=== PATIENT | female | born 1950 | race Caucasian/White ===

== ENCOUNTER 2018-01-09 12:30 | Emergency (ER) | payer OTHER ==
--- NOTE | 2018-01-09 13:06 | EDPHYS ---
Physician Documentation [facility] Name: Lisy Betts Age: 67 yrs Sex: Female : 1950 Arrival Date: 01/09/2018 Time: 12:31 Bed 20 Private MD: ED Physician Javed Osborne HPI: 01/09 13:00 This 67 yrs old Female presents to ER via Ambulatory with complaints of Wound nathaniel Check. 13:00 Patient presents to ED for recheck of: cellulitis. The affected area is on the left nathaniel wilde. Previous treatment: none. Progress: The patient reports decreased drainage, redness, swelling. The patient has not experienced similar symptoms in the past. Historical: - Allergies: 12:40 PENICILLINS; aj - Home Meds: 12:40 None [Active]; aj - PMHx: 12:40 CLL; UTI; aj - PSHx: 12:40 Hysterectomy; aj - Immunization history:: Last tetanus immunization: unknown. - Social history:: Smoking status: Patient/guardian denies using tobacco. ROS: 13:01 Constitutional: Negative for fever, chills, and weight loss, Eyes: Negative for injury, nathaniel pain, redness, and discharge, Neck: Negative for injury, pain, and swelling, Cardiovascular: Negative for chest pain, palpitations, and edema, Respiratory: Negative for shortness of breath, cough, wheezing, and pleuritic chest pain, Abdomen/GI: Negative for abdominal pain, nausea, vomiting, diarrhea, and constipation, Back: Negative for injury and pain, : Negative for injury, bleeding, discharge, and swelling, Skin: Negative for injury, rash, and discoloration, Neuro: Negative for headache, weakness, numbness, tingling, and seizure, Psych: Negative for depression, anxiety, suicide ideation, homicidal ideation, and hallucinations, Allergy/Immunology: Negative for hives, rash, and allergies, Endocrine: Negative for neck swelling, polydipsia, polyuria, polyphagia, and marked weight changes, Hematologic/Lymphatic: Negative for swollen nodes, abnormal bleeding, and unusual bruising. 13:01 MS/extremity: Positive for pain, swelling, tenderness, warmth, of the left wilde. Exam: 13:01 Constitutional: This is a well developed, well nourished patient who is awake, alert, nathaniel and in no acute distress. Head/Face: Normocephalic, atraumatic. Eyes: Pupils equal round and reactive to light, extra-ocular motions intact. Lids and lashes normal. Conjunctiva and sclera are non-icteric and not injected. Cornea within normal limits. Periorbital areas with no swelling, redness, or edema. ENT: Nares patent. No nasal discharge, no septal abnormalities noted. Tympanic membranes are normal and external auditory canals are clear. Oropharynx with no redness, swelling, or masses, exudates, or evidence of obstruction, uvula midline. Mucous membranes moist. Neck: Trachea midline, no thyromegaly or masses palpated, and no cervical lymphadenopathy. Supple, full range of motion without nuchal rigidity, or vertebral point tenderness. No Meningismus. Chest/axilla: Normal chest wall appearance and motion. Nontender with no deformity. No lesions are appreciated. Cardiovascular: Regular rate and rhythm with a normal S1 and S2. No gallops, murmurs, or rubs. Normal PMI, no JVD. No pulse deficits. Respiratory: Lungs have equal breath sounds bilaterally, clear to auscultation and percussion. No rales, rhonchi or wheezes noted. No increased work of breathing, no retractions or nasal flaring. Abdomen/GI: Soft, non-tender, with normal bowel sounds. No distension or tympany. No guarding or rebound. No evidence of tenderness throughout. Back: No spinal tenderness. No costovertebral tenderness. Full range of motion. Female : Normal external genitalia. Skin: Warm, dry with normal turgor. Normal color with no rashes, no lesions, and no evidence of cellulitis. Neuro: Awake and alert, GCS 15, oriented to person, place, time, and situation. Cranial nerves II-XII grossly intact. Motor strength 5/5 in all extremities. Sensory grossly intact. Cerebellar exam normal. Normal gait. Psych: Awake, alert, with orientation to person, place and time. Behavior, mood, and affect are within normal limits. 13:01 Musculoskeletal/extremity: Circulation is intact in all extremities. Sensation intact. Compartment Syndrome exam of affected extremity: is normal. DVT Exam: negative Homans' sign noted on exam, no appreciated bluish discoloration, pain, swelling, tenderness, erythema, increased warmth, that is mild, that is moderate, of the left leg, of the left wilde. Vital Signs: 12:40 BP 170 / 61; Pulse 68; Resp 17; Temp 97.8; Pulse Ox 100% on R/A; Weight 102.06 kg; aj Height 5 ft. 5 in. (165.10 cm); Pain 0/10; 14:00 BP 162 / 64; Pulse 64; Resp 18; Temp 98.2; Pulse Ox 99% on R/A; ph 12:40 Body Mass Index 37.44 (102.06 kg, 165.10 cm) aj MDM: 12:44 Patient medically screened. [facility] 13:01 Data reviewed: vital signs, nurses notes. [facility] 01/09 12:58 Order name: Blood Glucose Level; Complete Time: 14:14 [facility] Administered Medications: 14:00 Drug: Bactrim (160 mg-800 mg (DS) 1 tablet Route: PO; ph 14:14 Follow up: Response: No adverse reaction ph 14:00 Drug: Doxycycline 200 mg Route: PO; ph 14:16 Follow up: Response: No adverse reaction ph 14:00 Drug: Tetanus-Diphtheria Toxoid Adult 0.5 ml {Group Director: [employer]. Exp: ph 05/10/2020. Lot #: [id number]. } Route: IM; Site: right deltoid; 14:17 Follow up: Response: No adverse reaction ph 14:14 Drug: Silver SulfADIAZINE Cream 1 % 1 application Route: Topical; Site: affected area; ph 14:17 Follow up: Response: No adverse reaction ph Point of Care Testing: Blood Glucose: 13:07 Blood Glucose: 133 mg/dL; ph Ranges: Critical Glucose Levels:Adult <50 mg/dl or >400 mg/dl <40 mg/dl or >180 mg/dl Disposition: 01/09/18 13:05 Discharged to Home. Impression: Cellulitis and acute lymphangitis of other parts of limb, Non-pressure chronic ulcer of other part of left lower leg. - Condition is Stable. - Discharge Instructions: Skin Ulcer, Stasis Ulcer, Cellulitis, [id number]-ot-Czit, Pressure Ulcer. - Prescriptions for Silvadene 1 % Topical Cream - Apply to affected area 1 application by TOPICAL route every 12 hours; 20 gram. Doxycycline Hyclate 100 mg Oral Tablet - take 1 tablet by ORAL route every 12 hours; 20 tablet. Bactrim DS 800- 160 mg Oral Tablet - take 1 tablet by ORAL route every 12 hours for 10 days; 20 tablet. - Medication Reconciliation Form, Thank You Letter, Antibiotic Education, Prescription Opioid Use form. - Follow up: Private Physician; When: 2 - 3 days; Reason: Recheck today's complaints, Continuance of care, Re-evaluation by your physician. Follow up: Vik Ohara MD; When: 2 - 3 days; Reason: Recheck today's complaints, Continuance of care, Re-evaluation by your physician. - Problem is new. - Symptoms have improved. Signatures: Paris Jeffries, RN RN Javed Rossi MD MD cha Hall, Patricia, RN RN ph
--- NOTE | 2018-01-09 13:06 | ER ---
Nurse's Notes [facility] Name: Lisy Betts Age: 67 yrs Sex: Female : 1950 Arrival Date: 01/09/2018 Time: 12:31 Bed 20 Private MD: Diagnosis: Cellulitis and acute lymphangitis of other parts of limb;Non-pressure chronic ulcer of other part of left lower leg Presentation: 01/09 12:39 Presenting complaint: Patient states: Wound to left wilde for 7-10 days that will not aj heal. Redness and inflammation noted to wound. Transition of care: patient was not received from another setting of care. Onset of symptoms was December 31, 2017. Care prior to arrival: None. 12:39 Method Of Arrival: Ambulatory aj 12:39 Acuity: ARNOLD 3 aj Triage Assessment: 12:40 General: Appears in no apparent distress. comfortable, Behavior is calm, cooperative, aj appropriate for age. Pain: Denies pain. Neuro: Level of Consciousness is awake, alert, obeys commands, Oriented to person, place, time, situation. Respiratory: Airway is patent Respiratory effort is even, unlabored, Respiratory pattern is regular, symmetrical. Derm: Skin is intact, is healthy with good turgor, Skin is pink, warm \T\ dry. normal, redness noted to left wilde. Historical: - Allergies: 12:40 PENICILLINS; aj - Home Meds: 12:40 None [Active]; aj - PMHx: 12:40 CLL; UTI; aj - PSHx: 12:40 Hysterectomy; aj - Immunization history:: Last tetanus immunization: unknown. - Social history:: Smoking status: Patient/guardian denies using tobacco. Screenin:17 Abuse screen: Denies threats or abuse. Denies injuries from another. Nutritional ph screening: No deficits noted. Tuberculosis screening: No symptoms or risk factors identified. Fall Risk None identified. Assessment: 13:00 General: Appears in no apparent distress. comfortable, obese, well groomed, Behavior is ph calm, cooperative, appropriate for age, Denies fever, feeling ill. Pain: Complains of pain in left wilde. Neuro: Level of Consciousness is awake, alert, obeys commands, Oriented to person, place, time, situation. Cardiovascular: Capillary refill < 3 seconds Patient's skin is warm and dry. Respiratory: Airway is patent Respiratory effort is even, unlabored. GI: Patient currently denies diarrhea, nausea, vomiting. Derm: Skin is healthy with good turgor, Skin is pink, warm \T\ dry. Wound noted left wilde Wound is round, dime-sized, no bleeding or drainage noted, surrounding area reddened and warm. Musculoskeletal: Circulation, motion, and sensation intact. Range of motion: intact in all extremities. 14:20 Reassessment: Patient appears in no apparent distress at this time. Patient and/or ph family updated on plan of care and expected duration. Pain level reassessed. Patient is alert, oriented x 3, equal unlabored respirations, skin warm/dry/pink. Pt discharged home. Vital Signs: 12:40 BP 170 / 61; Pulse 68; Resp 17; Temp 97.8; Pulse Ox 100% on R/A; Weight 102.06 kg; aj Height 5 ft. 5 in. (165.10 cm); Pain 0/10; 14:00 BP 162 / 64; Pulse 64; Resp 18; Temp 98.2; Pulse Ox 99% on R/A; ph 12:40 Body Mass Index 37.44 (102.06 kg, 165.10 cm) ED Course: 12:31 Patient arrived in ED. as 12:40 Triage completed. 12:40 Arm band placed on left wrist. Patient placed in an exam room. aj 12:42 Leticia Olivera, RN is Primary Nurse. ph 12:44 Javed Osborne MD is Attending Physician. [facility] 13:00 Patient has correct armband on for positive identification. Bed in low position. Call ph light in reach. Side rails up X 1. Pulse ox on. NIBP on. 13:04 Vik Ohara MD is Referral Physician. [facility] 14:00 Wound care: to cellulitis located on left wilde was cleaned with Betadine, irrigated ph with normal saline, dressed with band aid, silvadene , Patient tolerated well. 14:17 No provider procedures requiring assistance completed. Patient did not have IV access ph during this emergency room visit. Administered Medications: 14:00 Drug: Bactrim (160 mg-800 mg (DS) 1 tablet Route: PO; ph 14:14 Follow up: Response: No adverse reaction ph 14:00 Drug: Doxycycline 200 mg Route: PO; ph 14:16 Follow up: Response: No adverse reaction ph 14:00 Drug: Tetanus-Diphtheria Toxoid Adult 0.5 ml {Academic Dean: 27 [address]. Exp: ph 05/10/2020. Lot #: [id number]. } Route: IM; Site: right deltoid; 14:17 Follow up: Response: No adverse reaction ph 14:14 Drug: Silver SulfADIAZINE Cream 1 % 1 application Route: Topical; Site: affected area; ph 14:17 Follow up: Response: No adverse reaction ph Point of Care Testing: Blood Glucose: 13:07 Blood Glucose: 133 mg/dL; ph Ranges: Outcome: 13:05 Discharge ordered by MD. armstrong 14:18 Discharged to home ambulatory. ph 14:18 Condition: good 14:18 Discharge instructions given to patient, Instructed on discharge instructions, follow up and referral plans. medication usage, Demonstrated understanding of instructions, follow-up care, medications, Prescriptions given X 3. 14:22 Patient left the ED. ph Signatures: Paris Jeffries RN RN Javed Rossi MD MD cha Martinez, Amelia as Hall, Patricia, RN RN ph Corrections: (The following items were deleted from the chart) 14:15 14:14 Doxycycline 200 mg PO ph ph 14:15 14:14 Bactrim (160 mg-800 mg (DS) 1 tablet PO ph ph 14:16 14:12 Tetanus-Diphtheria Toxoid Adult 0.5 ml IM in right deltoid Academic Dean: [employer] Lot: [id number] Exp: 05/10/2020 ph 14:16 14:14 Silver SulfADIAZINE Cream 1 % 1 application Topical in affected area ph ph
[2018-01-09] MEDS ORDERED: SMZ./TMP. 800/160 MG TABLET ONE (13:37)
[2018-01-09] MEDS ORDERED: DOXYCYCLINE 100 MG CAP PO ONE (13:37)
[2018-01-09] MEDS ORDERED: SILVER SULFADIAZINE 1% 25 GM TOP ONE (13:37)
[2018-01-09] MEDS ORDERED: TETANUS & DIPHTHERIA TOX,ADULT 0.5 ML VIAL ONE (13:38)
[2018-01-09 14:36] VITALS: BP 170/61; TEMP 97.8; O2SAT 100
== END 2018-01-09 14:22 | disposition home or self-care (01) ==
LOC: ER 12:30
DX: L03.116 Cellulitis of left lower limb (principal); L97.829 Non-pressure chronic ulcer of other part of left lower leg with unspecified severity; Z23 Encounter for immunization; Z88.0 Allergy status to penicillin
CPT/HCPCS: 82962; 90714; 99284

== ENCOUNTER 2018-01-22 13:56 | Inpatient (IN) | payer OTHER ==
[2018-01-22 15:18] LABS: Absolute Lymphocytes (CBC) 26.9 K/uL (0.7-4.9); Absolute Monocytes 0.2 K/uL (0.1-1.3); Absolute Neutrophil 0.3 K/uL (1.8-8.0); Eosinophils % 0.4 % (0-4.4); Hematocrit 32.3 % (36.0-45.0); Lymphocytes % 97.8 % (15.3-44.8); MCH 33.7 pg (27.0-35.0); MCV 104.2 fL (80-100); MPV 10.6 fL (7.6-11.3); Monocytes % 0.6 % (3.3-12.3)
[2018-01-22 15:25] LABS: Protime INR 0.97
[2018-01-22 15:32] LABS: Potassium 3.9 mEq/L (3.6-5.0)
[2018-01-22 15:35] LABS: Albumin 3.8 g/dL (3.2-5.5); Bilirubin Total 0.5 mg/dL (0.3-1.2); Magnesium 1.9 mg/dL (1.8-2.5); Protein, Total 6.7 g/dL (6.0-8.3)
[2018-01-22 15:49] LABS: Anisocytosis SLIGHT; Blood Morphology Comment NOTED (NOT SEEN); Macrocytosis 1+; Platelet Estimate DECR; Smudge Cells PRESENT
[2018-01-22 15:50] LABS: Polychromasia SLIGHT; Teardrop Cell 1+
--- NOTE | 2018-01-22 15:52 | EKG ---
Test Date: 2018-01-22 Test Time: 14:18:05 Cam Maker: RAFI MEASUREMENT RESULTS: Intervals: Rate: 73 MI: 146 QRSD: 78 QT: 390 QTc: 429 [place]: P: -11 MI: 146 QRS: -4 T: 34 INTERPRETIVE STATEMENTS: Normal sinus rhythm Minimal voltage criteria for LVH, may be normal variant Inferior infarct, age undetermined Cannot rule out Anterior infarct, age undetermined Abnormal ECG Compared to ECG 11/05/2017 15:36:53 Left ventricular hypertrophy now present Myocardial infarct finding still present Electronically Signed On 01-22-18 15:51:13 CDT by Stevan Olivia
--- NOTE | 2018-01-22 16:27 | RAD REPORT ---
EXAM DESCRIPTION: CT - Chest For Pe Angio - 01/22/2018 4:09 pm CLINICAL HISTORY: Chest pain. COMPARISON: 08/16/2017 TECHNIQUE: CT angiogram of the pulmonary arteries was performed with MIP. All CT scans are performed using dose optimization technique as appropriate and may include automated exposure control or mA/KV adjustment according to patient size. FINDINGS: Posterior right lower lobe filling defect is seen in the pulmonary artery compatible with pulmonary embolism. Smaller similar filling defects are likely present in the posterior subsegmental branches on the left. No evidence of RV strain pattern. No acute aortic finding demonstrated. Bilateral axillary lymphadenopathy is noted appearing increased in size since comparative study. For example, the largest lymph node on the left currently measures 23 x 18 mm, previously measuring 19 x 9 mm. The largest lymph node on the right currently measures 31 x 14 mm, previously measured 27 x 9 m m. Interstitial prominence is present bilaterally throughout both lungs suggesting mild interstitial pul monary edema or interstitial pneumonitis. No lytic or blastic bone lesion. IMPRESSION: Pulmonary embolism is present, most notable in the segmental right lower lobe branch. Progression in adenopathy in both axillary regions as detailed since comparative 08/16/2017 study its most suggestive of progression of lymphoma. Findings were discussed with Dr. Sampson in the emergency room 4:23 p.m. 01/22/2018 by telephone.
--- NOTE | 2018-01-22 16:32 | RAD REPORT ---
EXAM DESCRIPTION: CTAbdomen Pelvis W Contrast - 01/22/2018 4:10 pm CLINICAL HISTORY: Abdominal pain. History of lymphoma. COMPARISON: 07/13/2017 TECHNIQUE: Biphasic CT imaging of the abdomen and pelvis was performed with 100 ml non-ionic IV cont rast. All CT scans are performed using dose optimization technique as appropriate and may include automated exposure control or mA/KV adjustment according to patient size. FINDINGS: Mild interstitial prominence is seen in both lung bases. The liver appears prominent in size with a diffuse fatty infiltration pattern, similar to the compara tive study. The spleen appears mildly prominent in size measuring 12 cm in anterior-posterior dimensi on without focal splenic lesion. The pancreas, adrenal glands and kidneys are within normal limits. No bowel obstruction, free air, free fluid or abscess. The appendix is normal. Adenopathy is again noted in the small bowel mesentery with mild surrounding mesenteric edema. The size and distribution of the lymph nodes appears similar to the comparative study. Pelvic sidewall adenopathy is also noted which appears slightly larger. For example, left pelvic sidewall adenopathy currently measures 4.7 x 2.4 cm, previously measured 4.2 x 2.1 cm. Right pelvic sidewall anterior adenopathy currently measur es 3.3 x 2.1 cm, previously 3.0 x 1.9 cm. Bilateral inguinal adenopathy appears similar. No suspicious bony findings. IMPRESSION: Diffuse fatty liver with mild hepatosplenomegaly. Mild progression in adenopathy, particularly in the pelvis, since 07/13/2017 as detailed.
--- NOTE | 2018-01-22 16:40 | ER ---
Nurse's Notes [facility] Name: Lisy Betts Age: 67 yrs Sex: Female : 1950 Arrival Date: 01/22/2018 Time: 13:57 Bed 23 Private MD: Wilfrid Beard Diagnosis: Pulmonary embolism without acute cor pulmonale;thrombocytopenia. CLL;leukocytosis Presentation: 01/22 14:02 Presenting complaint: Patient states: Yesterday I was having LLQ abd pain but when I la1 woke up this morning I had pain in my left chest area that went to my neck and left arm, pt reports pain is sharp and radiates up and down neck and arm. Transition of care: patient was not received from another setting of care. Onset of symptoms was January 22, 2018. Care prior to arrival: None. 14:02 Method Of Arrival: Wheelchair la1 14:02 Acuity: ARNOLD 3 la1 Historical: - Allergies: 14:04 PENICILLINS; la1 - PMHx: 14:04 CLL; UTI; la1 - Immunization history:: Adult Immunizations up to date. - Social history:: Smoking status: Patient/guardian denies using tobacco. Screenin:59 Abuse screen: Denies threats or abuse. Denies injuries from another. Nutritional lk1 screening: No deficits noted. Tuberculosis screening: No symptoms or risk factors identified. Fall Risk Total Rodríguez Fall Scale indicates High Risk Score (45 or more points). Fall prevention measures have been instituted. Side Rails Up X 2 Placed Close to Nursing Station Frequent Obs/Assessments Occuring Family Present and informed to notify staff if the need to leave the bedside As available patient and family educated on Fall Prevention Program and Strategies. Assessment: 14:40 General: Appears uncomfortable, Behavior is calm, cooperative, appropriate for age. lk1 Pain: Complains of pain in right upper quadrant and left upper quadrant Pain radiates to anterior aspect of left shoulder and posterior aspect of left shoulder Pain currently is 6 out of 10 on a pain scale. Pain began 1 day ago. Neuro: Level of Consciousness is awake, alert, obeys commands, Oriented to person, place, time, situation. Neuro: Speech is normal, Facial symmetry appears normal. Cardiovascular: Heart tones S1 S2 present Capillary refill is brisk Patient's skin is warm and dry. Respiratory: Airway is patent Respiratory effort is even, unlabored, Respiratory pattern is regular, symmetrical. GI: Abdomen is obese, Reports States pain began yesterday under left ribs and now is between the bottom of her ribs and her belly button across tboth sides of her abdomen. : No signs and/or symptoms were reported regarding the genitourinary system. EENT: No signs and/or symptoms were reported regarding the EENT system. Derm: No signs and/or symptoms reported regarding the dermatologic system. 15:30 Reassessment: Patient and/or family updated on plan of care and expected duration. Pain lk1 level reassessed. Patient is alert, oriented x 3, equal unlabored respirations, skin warm/dry/pink. Patient states feeling better. Vital Signs: 14:04 BP 155 / 84; Pulse 80; Resp 16; Temp 98.2(TE); Pulse Ox 97% on R/A; Weight 99.79 kg; la1 Height 5 ft. 5 in. (165.10 cm) (R); 14:45 BP 144 / 77; Pulse 72; Resp 16; Pulse Ox 98% on R/A; Pain 6/10; lk1 15:00 BP 143 / 80; Pulse 70; Resp 15; Pulse Ox 99% on R/A; lk1 15:15 BP 138 / 83; Pulse 70; Resp 16; Pulse Ox 98% on R/A; lk1 16:40 BP 160 / 92; Pulse 79; Resp 18; Pulse Ox 98% on R/A; lk1 17:00 BP 146 / 81; Pulse 71; Resp 16; Pulse Ox 99% on R/A; lk1 18:00 BP 138 / 77; Pulse 70; Resp 16; Pulse Ox 97% ; lk1 14:04 Body Mass Index 36.61 (99.79 kg, 165.10 cm) la1 16:40 after ambulating to bathroom. lk1 ED Course: 13:57 Patient arrived in ED. as 13:57 Wilfrid Beard MD is Private Physician. as 14:03 Triage completed. la1 14:04 Arm band placed on left wrist. la1 14:06 Saman Sampson MD is Attending Physician. ps1 14:37 Kristin Contreras RN is Primary Nurse. lk1 15:04 Inserted saline lock: 20 gauge in right antecubital area, using aseptic technique. lk1 Blood collected. 16:00 Patient has correct armband on for positive identification. Bed in low position. Call lk1 light in reach. Side rails up X2. Adult w/ patient. portfolio assistant on. Pulse ox on. NIBP on. 16:[address] via stretcher. nj 16:09 CT completed. Patient tolerated procedure well. Patient moved back from CT. nj 16:10 CT Chest For PE Angio In Process Unspecified. EDMS 16:10 Abdomen In Process Unspecified. EDMS 16:37 Nelly Roberts MD is Hospitalizing Provider. ps1 17:20 Patient taken to ultrasound. lola 17:54 Patient moved back from ultrasound. lola 19:23 No provider procedures requiring assistance completed. Patient admitted, IV remains in lk1 place. No redness/swelling at site. Patient maintains SpO2 saturation greater than 95% on room air. Administered Medications: 17:03 CANCELLED (Physician Discretion): Heparin (DVT/PE Drip) 18 units/kg/hr - (HEParin 18270 lk1 units, D5W 500 ml) IV at 18 calculated rate Per protocol; Max initial rate 1800 units/hr 17:03 CANCELLED (Physician Discretion): Heparin (DVT/PE- Bolus per protocol) - HEParin 80 lk1 units/kg IVP once; Max 8,000 units Outcome: 16:40 Decision to Hospitalize by Provider. ps1 18:15 Admitted to Med/surg accompanied by tech, via wheelchair, room 231, with chart. lk 18:15 Condition: good 18:15 Discharge instructions given to patient, family, Instructed on the need for admit, Demonstrated understanding of instructions. 18:51 Patient left the ED. iw Signatures: Dispatcher [employer] Carla Oscar Irene, RN Hernandez Velazquez RN RN Kristin Mcknight RN RN lk1 Max Quinones jd, Nathan nj Singer, Phillip, MD MD ps1
--- NOTE | 2018-01-22 16:40 | EDPHYS ---
Physician Documentation [facility] Name: Lisy Betts Age: 67 yrs Sex: Female : 1950 Arrival Date: 01/22/2018 Time: 13:57 Bed 23 Private MD: Wilfrid Beard ED Physician Saman Sampson HPI: 01/22 14:30 This 67 yrs old Female presents to ER via Wheelchair with complaints of Chest ps1 Pain. 14:30 The patient or guardian reports chest pain that is located primarily in the left ps1 breast. Onset: last night. The pain radiates to. The pain radiates to the left shoulder. 14:30 Associated signs and symptoms: Pertinent positives: shortness of breath. The chest pain ps1 is described as a pressure, sharp, squeezing. Duration: The patient or guardian reports a single episode, that is still ongoing. Modifying factors: The symptoms are alleviated by nothing. the symptoms are aggravated by breathing, deep breath. Severity of pain: At its worst the pain was moderate in the emergency department the pain is unchanged. hx of CLL, sees Dr. Balbuena. . Historical: - Allergies: 14:04 PENICILLINS; la1 - PMHx: 14:04 CLL; UTI; la1 - Immunization history:: Adult Immunizations up to date. - Social history:: Smoking status: Patient/guardian denies using tobacco. ROS: 14:30 Constitutional: Negative for fever, chills, and weight loss, Eyes: Negative for injury, ps1 pain, redness, and discharge, ENT: Negative for injury, pain, and discharge. 14:30 MS/Extremity: Negative for injury and deformity, Skin: Negative for injury, rash, and discoloration, Neuro: Negative for headache, weakness, numbness, tingling, and seizure. 14:30 Cardiovascular: Positive for chest pain. 14:30 Respiratory: Positive for shortness of breath. 14:30 Abdomen/GI: Positive for abdominal pain. Exam: 14:30 Constitutional: This is a well developed, well nourished patient who is awake, alert, ps1 and in no acute distress. Head/Face: Normocephalic, atraumatic. Eyes: Pupils equal round and reactive to light, extra-ocular motions intact. Lids and lashes normal. Conjunctiva and sclera are non-icteric and not injected. Chest/axilla: Normal chest wall appearance and motion. Nontender with no deformity. No lesions are appreciated. Cardiovascular: Regular rate and rhythm. No gallops, murmurs, or rubs. Normal PMI, no JVD. No pulse deficits. Respiratory: Lungs have equal breath sounds bilaterally, clear to auscultation and percussion. No rales, rhonchi or wheezes noted. No increased work of breathing, no retractions or nasal flaring. Abdomen/GI: Soft, non-tender, with normal bowel sounds. No distension or tympany. No guarding or rebound. No evidence of tenderness throughout. Back: No spinal tenderness. No costovertebral tenderness. Full range of motion. Skin: Warm, dry with normal turgor. Normal color with no rashes, no lesions, and no evidence of cellulitis. MS/ Extremity: Pulses equal, no cyanosis. Neurovascular intact. Full, normal range of motion. Neuro: Awake and alert, GCS 15, oriented to person, place, time, and situation. Cranial nerves II-XII grossly intact. Sensory grossly intact. Vital Signs: 14:04 BP 155 / 84; Pulse 80; Resp 16; Temp 98.2(TE); Pulse Ox 97% on R/A; Weight 99.79 kg; la1 Height 5 ft. 5 in. (165.10 cm) (R); 14:45 BP 144 / 77; Pulse 72; Resp 16; Pulse Ox 98% on R/A; Pain 6/10; lk1 15:00 BP 143 / 80; Pulse 70; Resp 15; Pulse Ox 99% on R/A; lk1 15:15 BP 138 / 83; Pulse 70; Resp 16; Pulse Ox 98% on R/A; lk1 16:40 BP 160 / 92; Pulse 79; Resp 18; Pulse Ox 98% on R/A; lk1 17:00 BP 146 / 81; Pulse 71; Resp 16; Pulse Ox 99% on R/A; lk1 18:00 BP 138 / 77; Pulse 70; Resp 16; Pulse Ox 97% ; lk1 14:04 Body Mass Index 36.61 (99.79 kg, 165.10 cm) la1 16:40 after ambulating to bathroom. lk1 MDM: 14:27 Patient medically screened. ps1 14:30 Data reviewed: vital signs, nurses notes. ps1 16:35 ED course: Notifed that patient had bilateral PE with right segmental PE and left ps1 subsegmental PE's. Spoke with Dr. Roberts who agrees with admission. Will start heparin with plan to transition during admission with consultation with Dr. Balbuena. . 01/22 14:29 Order name: Blood Culture Adult (2) ps1 01/22 14:29 Order name: Troponin (emerg Dept Use Only); Complete Time: 16:32 ps1 01/22 15:09 Order name: Comprehensive Metabolic Panel; Complete Time: 15:52 EDCT 01/22 15:09 Order name: Magnesium; Complete Time: 15:52 EDMS 01/22 15:09 Order name: Lipase; Complete Time: 15:52 EDCT 01/22 15:09 Order name: CBC with Automated Diff; Complete Time: 15:52 EDCT 01/22 15:09 Order name: Protime (+INR); Complete Time: 15:52 EDCT 01/22 14:29 Order name: CT Chest For PE Angio; Complete Time: 16:32 [facility] 01/22 14:29 Order name: EKG; Complete Time: 15:19 [facility] 01/22 14:29 Order name: Cardiac monitoring; Complete Time: 15:54 [facility] 01/22 15:09 Order name: PTT, Activated Partial Thromb; Complete Time: 15:52 EDCT 01/22 15:09 Order name: Hepatitis Panel,Acute EDCT 01/22 15:09 Order name: Blood Culture EDCT 01/22 15:09 Order name: Blood Culture [facility] 01/22 15:30 Order name: Manual Differential; Complete Time: 15:52 EDCT 01/22 15:39 Order name: CT Abd/Pelvis - Without Cont bd 01/22 16:08 Order name: Abdomen ; Complete Time: 16:33 EDCT 01/22 16:55 Order name: Urine Dipstick--Ancillary (enter results) bd 01/22 17:45 Order name: Urine Dipstick-Ancillary; Complete Time: 17:56 EDCT 01/22 18:48 Order name: VAS EDCT 01/22 14:29 Order name: EKG - Nurse/Tech; Complete Time: 15:54 [facility] 01/22 14:29 Order name: IV Saline Lock; Complete Time: 15:54 [facility] 01/22 14:29 Order name: Labs collected and sent; Complete Time: 15:54 [facility] 01/22 14:29 Order name: O2 Per Protocol; Complete Time: 15:54 [facility] 01/22 14:29 Order name: O2 Sat Monitoring; Complete Time: 15:54 [facility] 01/22 14:29 Order name: Urine Dipstick-Ancillary (obtain specimen); Complete Time: 17:03 [facility] 01/22 15:43 Order name: Labs - recollect needed; Complete Time: 17:01 bd Administered Medications: 17:03 CANCELLED (Physician Discretion): Heparin (DVT/PE Drip) 18 units/kg/hr - (HEParin 32409 lk1 units, D5W 500 ml) IV at 18 calculated rate Per protocol; Max initial rate 1800 units/hr 17:03 CANCELLED (Physician Discretion): Heparin (DVT/PE- Bolus per protocol) - HEParin 80 lk1 units/kg IVP once; Max 8,000 units Disposition: 01/22/18 16:40 Hospitalization ordered by Nelly Roberts for Inpatient Admission. Preliminary diagnosis are Pulmonary embolism without acute cor pulmonale, thrombocytopenia. CLL, leukocytosis. - Bed requested for Telemetry/MedSurg (Inpatient). - Status is Inpatient Admission. iw - Condition is Fair. - Problem is new. - Symptoms are unchanged. UTI on Admission? No Signatures: Dispatcher [employer] EDMS Milagro Moraes Irene, HARLEY SOUZA iw Hernandez Mcdaniel RN RN la1 Saman Sampson MD MD ps1 Kristin Contreras RN lk1 Corrections: (The following items were deleted from the chart) 15:54 15:19 CBC+H.LAB.BRZ ordered. EDMS EDMS 15:54 15:19 PROTIME (+INR)+COAG.LAB.BRZ ordered. EDMS EDMS 15:54 15:19 PTT, ACTIVATED+COAG.LAB.BRZ ordered. EDMS EDMS 15:55 15:19 HEPATIC FUNCTION+C.LAB.BRZ ordered. EDMS EDMS 15:55 15:19 LIPASE+C.LAB.BRZ ordered. EDMS EDMS 15:55 15:19 MAGNESIUM+C.LAB.BRZ ordered. EDMS EDMS 15:55 15:19 COMPREHENSIVE METABOLIC PANEL+C.LAB.BRZ ordered. EDMS EDMS 16:08 15:57 Abdomen ordered. EDMS EDMS 17:03 16:45 Heparin (DVT/PE Drip) 18 units/kg/hr - (HEParin 22308 units, D5W 500 ml) IV at 18 lk1 calculated rate Per protocol; Max initial rate 1800 units/hr ordered. ps1 17:03 16:45 Heparin (DVT/PE- Bolus per protocol) - HEParin 80 units/kg IVP once; Max 8,000 lk1 units ordered. ps1
[2018-01-22] MEDS ORDERED: ONDANSETRON 4 MG/2 ML VIAL IV PRN (17:03)
[2018-01-22] MEDS ORDERED: ACETAMINOPHEN 500 MG TAB PO PRN (17:03)
--- NOTE | 2018-01-22 17:13 | P.HP ---
Certification for Inpatient Patient admitted to: Observation With expected LOS: <2 Midnights Patient will require the following post-hospital care: None Practitioner: I am a practitioner with admitting privileges, knowledge of patient current condition, hospital course, and medical plan of care. Services: Services provided to patient in accordance with Admission requirements found in Title 42 Section 412.3 of the Code of Federal Regulations Patient History Date of Service: 01/22/18 Primary Care Provider: Dr Corbin Reason for admission: BL PE History of Present Illness: Patient is a 67-year-old female with significant history of CLL who presented to the ED complaining of having some right-sided substernal chest pain. Patient stated that she had associated shortness of breath with the chest pain as well as well started about a week ago and got progressively worse. Patient stated that she was at her family friend's house yesterday and had food with high amounts of and fried chicken and noted that both her bilateral feet were swollen more and she started having shortness of breath. Patient is also complaining of having some left lower quadrant abdominal pain which is what was most concerning to her and the she decided to the ER. Patient stated that she initially thought it was her CLL that was causing her to have the symptoms, however was not sure. In the ER patient was found to have subsegmental PE and right lower branch PE medicine team was consulted for further admission. Dr Balbuena was called by me and reccs were for PO eliquis. Dr Balbuena will f/u with her OutPt. Allergies Penicillins Allergy (Verified 12/05/17 14:54) Hives Home Medications: Cholecalciferol (Vitamin D3) [Vitamin D 1000 Iu Tab] 1,000 unit PO DAILY Escitalopram [Lexapro] 5 mg PO DAILY 12/05/17 - Past Medical/Surgical History Diabetic: No -: cyst removed from left breast -: left ankle surgery - Social History Alcohol use: No CD- Drugs: No Caffeine use: Yes Review of Systems General: As per HPI Physical Examination - Physical Exam General: Alert, In no apparent distress, Oriented x3 HEENT: Atraumatic, PERRLA, Mucous membr. moist/pink, EOMI, Sclerae nonicteric Neck: Supple, 2+ carotid pulse no bruit, No LAD, Without JVD or thyroid abnormality Respiratory: Normal air movement, Crackles/rales Cardiovascular: Regular rate/rhythm, Normal S1 S2 Gastrointestinal: Normal bowel sounds, No tenderness Musculoskeletal: No tenderness Integumentary: No rashes Neurological: Normal gait, Normal speech, Normal strength at 5/5 x4 extr, Normal tone, Normal affect Lymphatics: No axilla or inguinal lymphadenopathy - Studies Laboratory Data (last 24 hrs) 01/22/18 14:45: PT 11.5, INR 0.97, APTT 26.2 01/22/18 14:45: Sodium 139, Potassium 3.9, BUN 8, Creatinine 0.71, Glucose 108, Magnesium 1.9, Total Bilirubin 0.5, AST 16, ALT 15, Alkaline Phosphatase 65, Lipase 14 L 01/22/18 14:45: WBC 27.5 H*, Hgb 10.5 L, Hct 32.3 L, Plt Count 95 L 01/22/18 14:29: PT Cancelled, INR Cancelled, APTT Cancelled 01/22/18 14:29: Sodium Cancelled, Potassium Cancelled, BUN Cancelled, Creatinine Cancelled, Glucose Cancelled, Magnesium Cancelled, Total Bilirubin Cancelled, AST Cancelled, ALT Cancelled, Alkaline Phosphatase Cancelled, Lipase Cancelled 01/22/18 14:29: WBC Cancelled, Hgb Cancelled, Hct Cancelled, Plt Count Cancelled Assessment and Plan - Problems (Diagnosis) (1) PE (pulmonary thromboembolism) Current Visit: Yes Status: Acute Plan: Acute PE in the Right lower lower branch and Left sub segmental Branches BL -Per reccs from Hematology started on Eliquis 10mg BID -Will continue to monitor her today. (2) CLL (chronic lymphocytic leukemia) Current Visit: Yes Status: Chronic Plan: Dr Balbuena to f/u with pt outpt. Discharge Plan: Home Plan to discharge in: 24 Hours - Advance Directives Does patient have a Living Will: No Does patient have a Durable POA for Healthcare: No - Code Status/Comfort Care Code Status Assessed: Yes Critical Care: No
[2018-01-22 17:45] LABS: Urine Blood NEGATIVE (NEG); Urine Glucose NEGATIVE (NEG); Urine Protein NEGATIVE (NEG); Urine pH 5.5 (5.0-7.0)
[2018-01-22 18:45] VITALS: BMI 36.6
--- NOTE | 2018-01-22 18:47 | RAD REPORT ---
EXAM DESCRIPTION: VAS - Extrem Venous W Compress Danish - 01/22/2018 6:01 pm CLINICAL HISTORY: Leg pain and swelling, pulmonary embolism, history of CLL COMPARISON: CT chest same date TECHNIQUE: Real-time sonographic evaluation of the bilateral lower extremity deep venous systems was performed. FINDINGS: Normal compressibility, flow augmentation, phasic flow and spontaneous flow are identified in the left and right lower extremity deep venous systems. No intraluminal filling defects seen. IMPRESSION: No DVT in either lower extremity.
[2018-01-22 20:04] LABS: Urine Appearance CLEAR; Urine Color YELLOW
[2018-01-22 20:05] LABS: Urine Bilirubin NEGATIVE (NEG); Urine Blood TRACE (NEG); Urine Glucose NEGATIVE (NEG); Urine Microscopic Reflex ORDER UMIC; Urine Protein NEGATIVE (NEG); Urine Specific Gravity <1.005 (1.005-1.030); Urine Urobilinogen 0.2 mg/dL (0.2-1.0)
[2018-01-22 20:15] LABS: Urine Bacteria <20 /HPF (<20); Urine Culture Reflex Order NOT NEEDED; Urine RBC <5 /HPF (NONE SEEN)
[2018-01-22] MEDS: APIXABAN 5 MG TABLET PO SCH (20:54)
[2018-01-23 02:12] VITALS: O2SAT 97
[2018-01-23 05:25] LABS: Absolute Lymphocytes (CBC) 20.9 K/uL (0.7-4.9); Absolute Monocytes 0.1 K/uL (0.1-1.3); Absolute Neutrophil 0.3 K/uL (1.8-8.0); Eosinophils % 0.6 % (0-4.4); Hematocrit 26.7 % (36.0-45.0); Lymphocytes % 97.5 % (15.3-44.8); MCH 33.6 pg (27.0-35.0); MCV 102.8 fL (80-100); MPV 9.8 fL (7.6-11.3); Monocytes % 0.5 % (3.3-12.3)
[2018-01-23 05:58] LABS: Protime INR 1.16
[2018-01-23 06:02] LABS: Albumin 3.1 g/dL (3.2-5.5); Bilirubin Total 0.3 mg/dL (0.3-1.2); Potassium 3.3 mEq/L (3.6-5.0); Protein, Total 5.3 g/dL (6.0-8.3)
--- NOTE | 2018-01-23 08:20 | P.CNS ---
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 basis denies any swelling of her legs patient had a hysterectomy done this year Allergies Penicillins Allergy (Verified 12/05/17 14:54) Hives Home Medications: Cholecalciferol (Vitamin D3) [Vitamin D 1000 Iu Tab] 1,000 unit PO DAILY - Past Medical/Surgical History Diabetic: No -: Chronic Leukemia -: 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 -: cyst removed from left breast -: left ankle surgery -: Hysterectomy 2017 -: Abdominal hernia repair with mesh placement - Family History Mother History Unknown: Yes Medical History: Heart disease, Other (see notes) Notes: [place], [place] Father History Unknown: Yes Medical History: Cancer Notes: Pancreatic [place] - Social History Alcohol use: Yes CD- Drugs: No Caffeine use: Yes Place of Residence: Home Review of Systems 10-point ROS is otherwise unremarkable General: Weakness Respiratory: Shortness of Breath, Pleuritic Pain Physical Examination Temp Pulse Resp BP Pulse Ox 97.9 F 65 16 110/55 L 96 01/23/18 04:00 01/23/18 04:00 01/23/18 04:00 01/23/18 04:00 01/23/18 04:00 General: Alert, Oriented x3 Neck: Supple Respiratory: Clear to auscultation bilaterally Cardiovascular: No edema, Regular rate/rhythm, Normal S1 S2 Gastrointestinal: Normal bowel sounds, Soft and benign Musculoskeletal: No clubbing, No swelling Laboratory Data (last 24 hrs) 01/22/18 14:45: PT 11.5, INR 0.97, APTT 26.2 01/22/18 14:45: Sodium 139, Potassium 3.9, BUN 8, Creatinine 0.71, Glucose 108, Magnesium 1.9, Total Bilirubin 0.5, AST 16, ALT 15, Alkaline Phosphatase 65, Lipase 14 L 01/22/18 14:45: WBC 27.5 H*, Hgb 10.5 L, Hct 32.3 L, Plt Count 95 L 01/22/18 14:29: PT Cancelled, INR Cancelled, APTT Cancelled 01/22/18 14:29: Sodium Cancelled, Potassium Cancelled, BUN Cancelled, Creatinine Cancelled, Glucose Cancelled, Magnesium Cancelled, Total Bilirubin Cancelled, AST Cancelled, ALT Cancelled, Alkaline Phosphatase Cancelled, Lipase Cancelled 01/22/18 14:29: WBC Cancelled, Hgb Cancelled, Hct Cancelled, Plt Count Cancelled - Problems (1) Pulmonary embolism Current Visit: Yes Status: Acute Plan: Patient is 67 years of age admitted with pulmonary embolism acute onset of left- sided lower abdominal and left-sided chest pain patient's vital signs are all stable saturation is satisfactory pulmonary emboli was noted in the right lung labs reviewed patient can be discharged home on Eliquis which is covered by her insurance the very 5 with the pharmacy anticoagulation duration to be determined by Dr. dominguez stable to be discharged patient has progressive of her adenopathy abdominal CT scan showed a fatty liver Qualifiers: Acute cor pulmonale presence: without acute cor pulmonale
[2018-01-23] MEDS: APIXABAN 5 MG TABLET PO SCH (08:46)
[2018-01-23 12:53] VITALS: BP 110/56; TEMP 98
--- NOTE | 2018-01-23 16:20 | P.SSS ---
Patient History Date of Service: 01/23/18 Primary Care Provider: Dr Corbin Reason for admission: Left-sided chest pain History of Present Illness: Patient is a 67-year-old female with significant history of CLL who presented to the ED complaining of having some right-sided substernal chest pain. Patient stated that she had associated shortness of breath with the chest pain as well as well started about a week ago and got progressively worse. Patient stated that she was at her family friend's house yesterday and had food with high amounts of and fried chicken and noted that both her bilateral feet were swollen more and she started having shortness of breath. Patient is also complaining of having some left lower quadrant abdominal pain which is what was most concerning to her and the she decided to the ER. Patient stated that she initially thought it was her CLL that was causing her to have the symptoms, however was not sure. In the ER patient was found to have subsegmental PE and right lower branch PE medicine team was consulted for further admission. Dr Balbuena was called by me and reccs were for PO eliquis. Dr Balbuena will f/u with her OutPt. Allergies Penicillins Allergy (Verified 12/05/17 14:54) Hives Home Medications: Cholecalciferol (Vitamin D3) [Vitamin D 1000 Iu Tab*] 1,000 unit PO DAILY Rivaroxaban [Xarelto] 15 mg PO BID #42 tablet 01/23/18 Rivaroxaban [Xarelto] 20 mg PO DAILY #30 tablet 01/23/18 - Past Medical/Surgical History Has patient received pneumonia vaccine in the past: No Diabetic: No -: Chronic Leukemia -: 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 -: cyst removed from left breast -: left ankle surgery -: Hysterectomy 2018 -: Abdominal hernia repair with mesh placement - Family History Mother History Unknown: Yes -: Heart disease, Other (see notes) Notes: [place], [place] Father History Unknown: Yes -: Cancer Notes: Pancreatic [place] - Social History Smoking Status: Never smoker Alcohol use: Yes CD- Drugs: No Caffeine use: Yes Place of Residence: Home Review of Systems General: As per HPI Physical Examination - Vital Signs Temperature: 98 F Blood Pressure: 110/56 Pulse: 68 Respirations: 20 Pulse Ox (%): 93 - Physical Exam General: Alert, In no apparent distress HEENT: Atraumatic, PERRLA, Mucous membr. moist/pink, EOMI, Sclerae nonicteric Neck: Supple, 2+ carotid pulse no bruit, No LAD, Without JVD or thyroid abnormality Respiratory: Clear to auscultation bilaterally, Normal air movement Cardiovascular: Regular rate/rhythm, Normal S1 S2 Gastrointestinal: Normal bowel sounds, No tenderness Musculoskeletal: No tenderness Integumentary: No rashes Neurological: Normal gait, Normal speech, Normal strength at 5/5 x4 extr, Normal tone, Normal affect Lymphatics: No axilla or inguinal lymphadenopathy - Diagnosis (Problem(s)) (1) PE (pulmonary thromboembolism) Onset Date: 01/23/18 Status: Acute Plan: Acute PE in the Right lower lower branch and Left sub segmental Branches BL -Initially started on Eliquis. However, not covered by Insurance. -Switched to Xarelto 15mg BID for 21 days and then 20mg daily with meals (2) CLL (chronic lymphocytic leukemia) Onset Date: 01/23/18 Status: Chronic Plan: Dr Balbuena to f/u with pt outpt. - Disposition Disposition: ROUTINE DISCHARGE Condition: GOOD Patient Discharge Instructions: Please f/u with PCP in 1 to 2 week post discharge. Please f/u with Dr Balbuena and Dr Araya in 1 week post discharge. New medication. Xarelto 15mg BID for 21 days. Xarelto 20mg Daily after you finish your intial twice daily dosing. -You will be taking 15mg xarelto Tonite at 7PM with Meal. -From tommorrow you will be taking 15mg xarelto twice daily with meal (9AM to 9PM)
[2018-01-24 19:43] LABS: HBsAG Nonreactive (Nonreactive); Hepatitis A IgM Antibody Nonreactive
== END 2018-01-23 13:50 | disposition home or self-care (01) | DRG 176 ==
LOC: ER 13:56 → ERHOLD 16:41 → 2ND 18:21
PROVIDERS: ADMIT Family Medicine; ATTEND Family Medicine
DX: I26.99 Other pulmonary embolism without acute cor pulmonale (principal); C91.10 Chronic lymphocytic leukemia of B-cell type not having achieved remission; Z88.0 Allergy status to penicillin
CPT/HCPCS: 36415; 71275; 74177; 80053; 80074; 81003; 81015; 83690; 83735; 84484; 85025; 85610; 85730; 87040; 93005; 93970; 99285; Q9967

== ENCOUNTER 2018-02-07 11:52 | Observation (INO) | payer OTHER ==
[2018-02-07] MEDS ORDERED: NITROGLYCERIN 1 GM PKT TD ONE (13:45)
[2018-02-07 13:53] LABS: Absolute Lymphocytes (CBC) 30.2 K/uL (0.7-4.9); Absolute Monocytes 0.2 K/uL (0.1-1.3); Absolute Neutrophil 0.9 K/uL (1.8-8.0); Basophils % 0.1 % (0-1.3); Eosinophils % 0.5 % (0-4.4); Lymphocytes % 96.1 % (15.3-44.8); MCH 33.5 pg (27.0-35.0); MCV 103.7 fL (80-100); MPV 10.1 fL (7.6-11.3); Monocytes % 0.5 % (3.3-12.3)
[2018-02-07 13:58] LABS: Protime INR 1.99
[2018-02-07 14:11] LABS: Albumin 3.9 g/dL (3.2-5.5); Bilirubin Direct 0.1 mg/dL (0-0.2); Bilirubin Total 0.5 mg/dL (0.3-1.2); Magnesium 2.1 mg/dL (1.8-2.5); Protein, Total 6.6 g/dL (6.0-8.3)
[2018-02-07 14:26] LABS: Urine Blood 1+ (NEG); Urine Glucose NEGATIVE (NEG); Urine Protein NEGATIVE (NEG); Urine Specific Gravity 1.015 (1.005-1.030)
--- NOTE | 2018-02-07 14:27 | RAD REPORT ---
EXAM DESCRIPTION: Jazmine Single View02/07/2018 2:07 pm CLINICAL HISTORY: Chest pain COMPARISON: October 2017 FINDINGS: The lungs appear clear of acute infiltrate. The heart is normal size IMPRESSION: No acute abnormalities displayed
[2018-02-07 14:31] LABS: Blood Morphology Comment NOT SEEN (NOT SEEN); Platelet Estimate DECR; Platelets, Giant PRESENT
[2018-02-07] MEDS ORDERED: NA CHLORIDE 0.9% 1,000 ML ONE (15:09)
--- NOTE | 2018-02-07 15:47 | EDPHYS ---
Physician Documentation [facility] Name: Lisy Betts Age: 67 yrs Sex: Female : 1950 Arrival Date: 02/07/2018 Time: 11:56 Bed 23 Private MD: Wilfrid Beard ED Physician Aleksey Christine HPI: 02/07 15:32 This 67 yrs old Female presents to ER via Ambulatory with complaints of Leg wa Pain, Weakness, Chest Pressure. 15:33 The patient or guardian reports chest pain that is located primarily in the substernal wa area. The patient or guardian reports chest pain that is located primarily in the chest. Onset: yesterday. The pain radiates to the left arm, c/o both L upper and lower extremity discomfort. admits to SOB. Associated signs and symptoms: Pertinent positives: shortness of breath, facial pain. The chest pain is described as a pressure. Duration: The patient or guardian reports a single episode, that is still ongoing, but improving. Modifying factors: The symptoms are alleviated by nothing. the symptoms are aggravated by exertion. Severity of pain: At its worst the pain was moderate in the emergency department the pain has improved. The patient has experienced similar episodes in the past. The patient has not recently seen a physician, PMD Dr. Corbin. Historical: - Allergies: 12:10 PENICILLINS; aj - Home Meds: 12:10 Xarelto oral oral [Active]; aj - PMHx: 12:10 CLL; UTI; aj 12:11 pulmonary embolism; aj - Immunization history:: Adult Immunizations up to date. - Social history:: Smoking status: Patient/guardian denies using tobacco. - Family history:: not pertinent. - Hospitalizations: : No recent hospitalization is reported. ROS: 15:36 Constitutional: Negative for fever, chills, and weight loss, Eyes: Negative for injury, wa pain, redness, and discharge, ENT: Negative for injury, pain, and discharge, Neck: Negative for injury, pain, and swelling, Abdomen/GI: Negative for abdominal pain, nausea, vomiting, diarrhea, and constipation, Back: Negative for injury and pain, : Negative for injury, bleeding, discharge, and swelling, Skin: Negative for injury, rash, and discoloration, Neuro: Negative for headache, weakness, numbness, tingling, and seizure, Psych: Negative for depression, anxiety, suicide ideation, homicidal ideation, and hallucinations. 15:36 Cardiovascular: Positive for chest pain, Negative for edema, orthopnea, palpitations, paroxysmal nocturnal dyspnea. 15:36 Respiratory: Positive for shortness of breath, Negative for cough, hemoptysis, orthopnea, sputum production, wheezing. 15:36 All other systems are negative. Exam: 15:37 Constitutional: This is a well developed, well nourished patient who is awake, alert, wa and in no acute distress. Head/Face: Normocephalic, atraumatic. Eyes: Pupils equal round and reactive to light, extra-ocular motions intact. Lids and lashes normal. Conjunctiva and sclera are non-icteric and not injected. Cornea within normal limits. Periorbital areas with no swelling, redness, or edema. ENT: Nares patent. No nasal discharge, no septal abnormalities noted. Tympanic membranes are normal and external auditory canals are clear. Oropharynx with no redness, swelling, or masses, exudates, or evidence of obstruction, uvula midline. Mucous membranes moist. Neck: Trachea midline, no thyromegaly or masses palpated, and no cervical lymphadenopathy. Supple, full range of motion without nuchal rigidity, or vertebral point tenderness. No Meningismus. Chest/axilla: Normal chest wall appearance and motion. Nontender with no deformity. No lesions are appreciated. Cardiovascular: Regular rate and rhythm with a normal S1 and S2. No gallops, murmurs, or rubs. Normal PMI, no JVD. No pulse deficits. Respiratory: Lungs have equal breath sounds bilaterally, clear to auscultation and percussion. No rales, rhonchi or wheezes noted. No increased work of breathing, no retractions or nasal flaring. Abdomen/GI: Soft, non-tender, with normal bowel sounds. No distension or tympany. No guarding or rebound. No evidence of tenderness throughout. Back: No spinal tenderness. No costovertebral tenderness. Full range of motion. Skin: Warm, dry with normal turgor. Normal color with no rashes, no lesions, and no evidence of cellulitis. Vital Signs: 12:11 BP 138 / 77; Pulse 102; Resp 18; Temp 99.1; Pulse Ox 99% on R/A; Weight 99.79 kg; aj Height 5 ft. 5 in. (165.10 cm); Pain 3/10; 13:15 BP 129 / 75; Pulse 63; Resp 17; Pulse Ox 97% on R/A; kr2 14:41 BP 136 / 79; Pulse 68; Resp 17; Pulse Ox 96% on R/A; kr2 15:18 BP 127 / 76; Pulse 68; Resp 16; Pulse Ox 99% on R/A; kr2 15:58 BP 127 / 76; Pulse 70; Resp 13; Pulse Ox 95% on R/A; kr2 17:50 BP 122 / 81; Pulse 65; Resp 14; Pulse Ox 96% on R/A; kr2 19:38 BP 139 / 83; Pulse 71; Resp 17; Pulse Ox 97% ; kr2 12:11 Body Mass Index 36.61 (99.79 kg, 165.10 cm) aj MDM: 13:26 Patient medically screened. ne 15:37 Differential diagnosis: acute myocardial infarction, acute pericarditis, coronary wa artery disease chest wall pain, costochondritis, gastroesophageal reflux disease (GERD), pleurisy, pneumonia, pulmonary embolus, pt on xarelto for PE. complaint with regimen. 15:39 Data reviewed: vital signs, nurses notes, lab test result(s). Test interpretation: by ne ED physician or midlevel provider: labs noted for leukocytosis of 31.5 with lymphocytic predominance noted anemia and thrombocytopenia. 15:40 Test interpretation: by ED physician or midlevel provider: CXR: nml. . ne 15:40 Test interpretation: by ED physician or midlevel provider: EKG: Rate 63. nml EKG. no ne acute dysrhythmic changes noted. Response to treatment: the patient's symptoms have markedly improved after treatment. Physician consultation: Wilfrid Beard MD. Admission orders: after a detailed discussion of the patient's condition and case, the admit orders are written by al. 15:42 ED course: spoke with PMD Dr. Beard, advises admit for obs for further eval. 02/07 13:28 Order name: Basic Metabolic Panel; Complete Time: 14:37 ne 02/07 13:28 Order name: BNP; Complete Time: 14:37 02/07 13:28 Order name: CBC with Diff; Complete Time: 14:37 02/07 13:28 Order name: LFT's; Complete Time: 14:37 ne 02/07 13:28 Order name: Magnesium; Complete Time: 14:37 ne 02/07 13:28 Order name: PT-INR; Complete Time: 14:37 ne 02/07 13:28 Order name: Ptt, Activated; Complete Time: 14:37 ne 02/07 13:28 Order name: Troponin (emerg Dept Use Only); Complete Time: 14:37 ne 02/07 13:28 Order name: XRAY Chest (1 view); Complete Time: 14:37 ne 02/07 13:54 Order name: Urine Dipstick--Ancillary (enter results); Complete Time: 14:37 mw2 02/07 13:59 Order name: Manual Differential; Complete Time: 14:37 EDMS 02/07 13:28 Order name: EKG; Complete Time: 13:28 ne 02/07 13:28 Order name: Cardiac monitoring; Complete Time: 13:47 ne 02/07 13:28 Order name: EKG - Nurse/Tech; Complete Time: 13:47 ne 02/07 13:28 Order name: IV Saline Lock; Complete Time: 13:47 ne 02/07 13:28 Order name: Labs collected and sent; Complete Time: 13:47 ne 02/07 13:28 Order name: O2 Per Protocol; Complete Time: 13:47 ne 02/07 13:28 Order name: O2 Sat Monitoring; Complete Time: 13:47 ne 02/07 13:28 Order name: Urine Dipstick-Ancillary (obtain specimen); Complete Time: 13:47 ne 02/07 17:58 Order name: Diet Regular; Complete Time: 17:58 kr2 Administered Medications: 13:46 Drug: Nitro-Bid Ointment 2 % 1 inches Route: Transdermal; Site: anterior chest wall; kr2 15:16 Follow up: Response: No adverse reaction kr2 15:16 Drug: NS 0.9% 1000 ml Route: IV; Rate: 1 bolus; Site: right antecubital; kr2 16:30 Follow up: Response: No adverse reaction; IV Status: Completed infusion kr2 Disposition: 02/07/18 15:46 Hospitalization ordered by Gabe Espitia for Observation. Preliminary diagnosis are Acute Chest Pain, Shortness of Breath. - Bed requested for Telemetry/MedSurg (observation). - Status is Observation. kr2 - Condition is Stable. - Problem is new. - Symptoms have improved. UTI on Admission? No Signatures: Dispatcher [employer] [facility] Jesica Joyce RN RN kl Myers, Amanda RN Aleksey Kolb MD MD wa Reaves, Karey, RN RN kr2 Corrections: (The following items were deleted from the chart) 14:56 14:39 Chest For PE Angio+CT.RAD.BRZ ordered. [facility] 19:30 15:46 Hospitalization Ordered by Gabe Espitia MD for Observation. Preliminary diagnosis kl is Acute Chest Pain; Shortness of Breath. Bed requested for Telemetry/MedSurg (observation). Status is Observation. Condition is Stable. Problem is new. Symptoms have improved. UTI on Admission? No. ne 20:37 19:30 02/07/2018 15:46 Hospitalization Ordered by Gabe Espitia MD for Observation. kr2 Preliminary diagnosis is Acute Chest Pain; Shortness of Breath. Bed requested for Telemetry/MedSurg (observation). Status is Observation. Condition is Stable. Problem is new. Symptoms have improved. UTI on Admission? No. kl
--- NOTE | 2018-02-07 15:47 | ER ---
Nurse's Notes [facility] Name: Lisy Betts Age: 67 yrs Sex: Female : 1950 Arrival Date: 02/07/2018 Time: 11:56 Bed 23 Private MD: Wilfrid Beard Diagnosis: Acute Chest Pain;Shortness of Breath Presentation: 02/07 12:08 Presenting complaint: Patient states: DX with PE on 01/22/18. Reports packing suitcase aj yesterday when she began having pain in bilateral legs and general weakness with SOB and chest heaviness. Transition of care: patient was not received from another setting of care. Onset of symptoms was February 06, 2018. Initial Sepsis Screen: Does the patient meet any 2 criteria? No. Patient's initial sepsis screen is negative. Does the patient have a suspected source of infection? No. Patient's initial sepsis screen is negative. Care prior to arrival: None. 12:08 Method Of Arrival: Ambulatory aj 12:08 Acuity: ARNOLD 3 aj Triage Assessment: 12:11 General: Appears in no apparent distress. uncomfortable, Behavior is calm, cooperative, aj appropriate for age. Pain: Complains of pain in right leg and left leg Pain currently is 3 out of 10 on a pain scale. Neuro: Level of Consciousness is awake, alert, obeys commands, Oriented to person, place, time, situation, Appropriate for age. Cardiovascular: Reports chest pain, shortness of breath, Capillary refill < 3 seconds in bilateral fingers Patient's skin is warm and dry. Respiratory: Reports shortness of breath Airway is patent Respiratory effort is even, unlabored, Respiratory pattern is regular, symmetrical. Derm: Skin is intact, is healthy with good turgor, Skin is pink, warm \T\ dry. normal. Musculoskeletal: Reports pain in right leg and left leg. Historical: - Allergies: 12:10 PENICILLINS; aj - Home Meds: 12:10 Xarelto oral oral [Active]; aj - PMHx: 12:10 CLL; UTI; aj 12:11 pulmonary embolism; aj - Immunization history:: Adult Immunizations up to date. - Social history:: Smoking status: Patient/guardian denies using tobacco. - Family history:: not pertinent. - Hospitalizations: : No recent hospitalization is reported. Screenin:10 Abuse screen: Denies threats or abuse. Denies injuries from another. Nutritional kr2 screening: No deficits noted. Tuberculosis screening: No symptoms or risk factors identified. Fall Risk IV access (20 points). Gait- Weak (10 pts.). Assessment: 13:10 General: Appears in no apparent distress. comfortable, well groomed, well developed, kr2 well nourished, Behavior is calm, cooperative, appropriate for age. Pain: Complains of pain in mid-sternal area Pain radiates to left scapular area Pain currently is 7 out of 10 on a pain scale. Quality of pain is described as aching, pressure, Pain began gradually, Is continuous. Neuro: Level of Consciousness is awake, alert, obeys commands, Oriented to person, place, time, situation. Cardiovascular: Capillary refill < 3 seconds in bilateral fingers Patient's skin is warm and dry. Rhythm is regular. Respiratory: Airway is patent Respiratory effort is even, unlabored, Respiratory pattern is regular, symmetrical. GI: Abdomen is flat, non-distended. : Urine is clear. EENT: Oral mucosa is moist. Derm: Skin is intact, is healthy with good turgor, Skin is pink, warm \T\ dry. Musculoskeletal: Circulation, motion, and sensation intact. 14:40 Reassessment: Patient appears in no apparent distress at this time. Patient and/or kr2 family updated on plan of care and expected duration. Pain level reassessed. Patient is alert, oriented x 3, equal unlabored respirations, skin warm/dry/pink. Patient states symptoms have improved. 15:17 Reassessment: Patient appears in no apparent distress at this time. Patient and/or kr2 family updated on plan of care and expected duration. Pain level reassessed. Patient is alert, oriented x 3, equal unlabored respirations, skin warm/dry/pink. Per Dr. Christine patient may have something to eat. Patient given sandwich and water Patient states symptoms have improved. 15:58 Reassessment: Patient appears in no apparent distress at this time. Patient and/or kr2 family updated on plan of care and expected duration. Pain level reassessed. Patient is alert, oriented x 3, equal unlabored respirations, skin warm/dry/pink. Patient denies pain at this time. 17:49 Reassessment: Patient appears in no apparent distress at this time. Patient and/or kr2 family updated on plan of care and expected duration. Pain level reassessed. Patient is alert, oriented x 3, equal unlabored respirations, skin warm/dry/pink. Assisted up to restroom Patient denies pain at this time. 19:38 Reassessment: Patient appears in no apparent distress at this time. Patient and/or kr2 family updated on plan of care and expected duration. Pain level reassessed. Patient is alert, oriented x 3, equal unlabored respirations, skin warm/dry/pink. Patient denies pain at this time. 20:35 Reassessment: Patient appears in no apparent distress at this time. Patient and/or kr2 family updated on plan of care and expected duration. Pain level reassessed. Patient is alert, oriented x 3, equal unlabored respirations, skin warm/dry/pink. Patient denies pain at this time. Patient states feeling better. Vital Signs: 12:11 BP 138 / 77; Pulse 102; Resp 18; Temp 99.1; Pulse Ox 99% on R/A; Weight 99.79 kg; aj Height 5 ft. 5 in. (165.10 cm); Pain 3/10; 13:15 BP 129 / 75; Pulse 63; Resp 17; Pulse Ox 97% on R/A; kr2 14:41 BP 136 / 79; Pulse 68; Resp 17; Pulse Ox 96% on R/A; kr2 15:18 BP 127 / 76; Pulse 68; Resp 16; Pulse Ox 99% on R/A; kr2 15:58 BP 127 / 76; Pulse 70; Resp 13; Pulse Ox 95% on R/A; kr2 17:50 BP 122 / 81; Pulse 65; Resp 14; Pulse Ox 96% on R/A; kr2 19:38 BP 139 / 83; Pulse 71; Resp 17; Pulse Ox 97% ; kr2 12:11 Body Mass Index 36.61 (99.79 kg, 165.10 cm) Vitals: 13:15 Cardiac Rhythm Assessment Regular Sinus rhythm. kr2 ED Course: 11:56 Patient arrived in ED. rg4 11:56 Wilfrid Beard MD is Private Physician. rg4 12:10 Triage completed. aj 12:11 Arm band placed on left wrist. Patient placed in waiting room. aj 12:12 Patient notified of wait time. aj 13:10 Patient has correct armband on for positive identification. Bed in low position. Call kr2 light in reach. Side rails up X2. safety investigator on. Pulse ox on. NIBP on. Door closed. Lights dimmed. Warm blanket given. Head of bed elevated. 13:26 Aleksey Christine MD is Attending Physician. wa 13:29 Ro Newell, RN is Primary Nurse. kr2 13:45 Inserted saline lock: 20 gauge in right antecubital area, using aseptic technique. kr2 Blood collected. 13:49 EKG done, by heating and cooling technician. reviewed by Aleksey Christine MD. at1 14:07 XRAY Chest (1 view) In Process Unspecified. EDMS 14:09 X-ray completed. Portable x-ray completed in exam room. Patient tolerated procedure jb2 well. 14:35 Notified ED physician of a critical lab result(s). WBC 31.5. kr2 15:45 Gabe Espitia MD is Hospitalizing Provider. wa 20:36 No provider procedures requiring assistance completed. Patient admitted, IV remains in kr2 place. Administered Medications: 13:46 Drug: Nitro-Bid Ointment 2 % 1 inches Route: Transdermal; Site: anterior chest wall; kr2 15:16 Follow up: Response: No adverse reaction kr2 15:16 Drug: NS 0.9% 1000 ml Route: IV; Rate: 1 bolus; Site: right antecubital; kr2 16:30 Follow up: Response: No adverse reaction; IV Status: Completed infusion kr2 Outcome: 15:46 Decision to Hospitalize by Provider. wa 20:36 Admitted to Tele accompanied by gisele, family with patient, via wheelchair, room 219, kr2 with chart, Report called to [facility] 20:36 Condition: good 20:36 Instructed on the need for admit, Demonstrated understanding of instructions. 20:37 Patient left the ED. kr2 Signatures: Dispatcher [employer] EDMS Paris Jeffries, RN RN Fran Perez jb2 Paris lares, cell biology scientist EKG Tat1 Tierra Roberts rg4 Aleksey Christine MD MD wa Reaves, Karey, RN RN kr2 Corrections: (The following items were deleted from the chart) 12:12 12:11 Arm band placed on left wrist. Patient placed in an exam room, lea tate
--- NOTE | 2018-02-07 17:44 | P.HP ---
Certification for Inpatient Patient admitted to: Observation With expected LOS: <2 Midnights Patient will require the following post-hospital care: None Practitioner: I am a practitioner with admitting privileges, knowledge of patient current condition, hospital course, and medical plan of care. Services: Services provided to patient in accordance with Admission requirements found in Title 42 Section 412.3 of the Code of Federal Regulations Patient History Date of Service: 02/07/18 Reason for admission: fatigue History of Present Illness: 67 year old female with history of CLL and recently diagnosed with PE who presented with complaints of fatigue, generalized body ache and loss of appetite.Per patient symptoms have been presented for over 3 months however seems to be worse everytime she overtly exerts herself.She had planned a trip to her sisters and was packing yesterday but felt like she couldn't make the long drive since she felt extremely tired.She called her PCPs office and was advised to come in. she denied any fever, chill,s weightloss,change in bowel habit, urinary symptoms , cough or headache. Allergies Penicillins Allergy (Verified 12/05/17 14:54) Hives Home Medications: Cholecalciferol (Vitamin D3) [Vitamin D 1000 Iu Tab*] 1,000 unit PO DAILY Rivaroxaban [Xarelto] 15 mg PO BID #42 tablet 01/23/18 Rivaroxaban [Xarelto] 20 mg PO DAILY #30 tablet 01/23/18 - Past Medical/Surgical History Diabetic: No -: Chronic Leukemia -: 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 -: cyst removed from left breast -: left ankle surgery -: Hysterectomy 2018 -: Abdominal hernia repair with mesh placement - Family History Mother -: Heart disease, Other (see notes) Notes: [place], [place] Father -: Cancer Notes: Pancreatic CA - Social History Alcohol use: Yes CD- Drugs: No Caffeine use: Yes Review of Systems 10-point ROS is otherwise unremarkable Physical Examination - Physical Exam General: Alert, In no apparent distress, Oriented x3 HEENT: Atraumatic, Normocephalic, PERRLA Neck: Supple, JVD not distended, No Thyromegaly, No LAD Respiratory: Clear to auscultation bilaterally, Normal air movement Cardiovascular: No edema, Normal pulses, Regular rate/rhythm, Normal S1 S2, No gallops, No rubs, No murmurs Gastrointestinal: Normal bowel sounds, Soft and benign, Non-distended, W/out hepatosplenomegaly, No ascites, No tenderness, No masses, No rebound, No guarding Musculoskeletal: No clubbing, No swelling, No contractures, No erythema, No tenderness, No warmth Integumentary: No breakdown, No significant lesion, No tenderness/swelling, No erythema, No warmth Neurological: Normal strength at 5/5 x4 extr - Studies Laboratory Data (last 24 hrs) 02/07/18 13:40: PT 23.7 H, INR 1.99, APTT 36.9 02/07/18 13:40: WBC 31.5 H*, Hgb 8.7 L, Hct 27.0 L, Plt Count 76 L 02/07/18 13:40: B-Natriuretic Peptide 132 H 02/07/18 13:40: Sodium 136, Potassium 4.0, BUN 12, Creatinine 0.75, Glucose 96, Magnesium 2.1, Total Bilirubin 0.5, AST 17, ALT 13, Alkaline Phosphatase 55 Assessment and Plan - Problems (Diagnosis) (1) PE (pulmonary thromboembolism) Onset Date: 01/23/18 Current Visit: No Status: Acute Plan: continue home dose of xarelto (2) CLL (chronic lymphocytic leukemia) Onset Date: 01/23/18 Current Visit: No Status: Chronic Plan: follow up with equipment washer as an outpatient (3) Fatigue Current Visit: Yes Status: Acute Plan: infectious sceening so far neg. EBC chroncially elevated due to CLL suspect symptoms secondary to CA versus medications will review labs observe overnight serial enzymes Discharge Plan: Home Plan to discharge in: 24 Hours - Advance Directives Does patient have a Living Will: No Does patient have a Durable POA for Healthcare: No
--- NOTE | 2018-02-07 17:59 | EKG ---
Test Date: 2018-02-07 Test Time: 13:30:40 Block Cleaner: ALAINA MEASUREMENT RESULTS: Intervals: Rate: 63 MD: 154 QRSD: 80 QT: 418 QTc: 427 Gibson: P: 23 MD: 154 QRS: 48 T: 36 INTERPRETIVE STATEMENTS: Normal sinus rhythm Normal ECG Compared to ECG 01/22/2018 14:18:05 Left ventricular hypertrophy no longer present Myocardial infarct finding no longer present Electronically Signed On 02-07-18 17:58:04 CDT by Stevan Olivia
[2018-02-07] MEDS ORDERED: NITROGLYCERIN 0.4 MG/TAB SL PRN (20:12)
[2018-02-07] MEDS: ACETAMINOPHEN 500 MG TAB PO PRN (21:22)
[2018-02-07 21:33] VITALS: BMI 37.3
[2018-02-07 22:41] LABS: CKMB Creatine Kinase MB 0.9 ng/ml (0.3-4.0); Creatine Phosphokinase 33 IU/L (22-269); HDL Cholesterol 17 mg/dL (29-89); LDL Cholesterol, Calculated ND (<130)
[2018-02-07] MEDS: MELATONIN 3 MG TABLET PO PRN (22:58)
[2018-02-07 23:23] LABS: LDL, Direct 52 mg/dl (<130)
[2018-02-08 05:21] LABS: Absolute Lymphocytes (CBC) 25.5 K/uL (0.7-4.9); Absolute Monocytes 0.2 K/uL (0.1-1.3); Absolute Neutrophil 0.6 K/uL (1.8-8.0); Basophils % 0.2 % (0-1.3); Eosinophils % 0.4 % (0-4.4); Hematocrit 24.2 % (36.0-45.0); Lymphocytes % 96.4 % (15.3-44.8); MCH 33.9 pg (27.0-35.0); MCV 104.7 fL (80-100); MPV 11.2 fL (7.6-11.3); Monocytes % 0.6 % (3.3-12.3); RBC Red Blood Cell Count 2.31 M/uL (3.86-4.86)
[2018-02-08 05:46] LABS: CKMB Creatine Kinase MB 0.7 ng/ml (0.3-4.0)
[2018-02-08] MEDS: VITAMIN D 1000 UNIT TAB PO SCH (08:42)
[2018-02-08] MEDS ORDERED: RIVAROXABAN 20 MG TABLET PO SCH (09:00)
[2018-02-08 13:03] LABS: RBC Red Blood Cell Count 2.57 M/uL (3.86-4.86)
[2018-02-08 13:06] LABS: Protime INR 1.71
[2018-02-08 13:35] LABS: CKMB Creatine Kinase MB 0.8 ng/ml (0.3-4.0)
[2018-02-08 13:36] LABS: Bilirubin Direct 0.1 mg/dL (0-0.2)
[2018-02-08 13:50] LABS: Ferritin 242.8 ng/ml (11.0-306.8); Uric Acid 6.2 mg/dL (2.6-8.0)
--- NOTE | 2018-02-08 17:15 | P.PN ---
Subjective Date of Service: 02/08/18 Chief Complaint: fatigue Subjective: No new changes Review of Systems 10-point ROS is otherwise unremarkable Physical Examination - Vital Signs Temperature: 97.2 F Blood Pressure: 120/64 Pulse: 70 Respirations: 18 Pulse Ox (%): 98 - Physical Exam General: Alert, In no apparent distress, Oriented x3 HEENT: Atraumatic, Normocephalic, PERRLA, Mucous membr. moist/pink Neck: Supple, No Thyromegaly, No LAD Respiratory: Clear to auscultation bilaterally, Normal air movement Cardiovascular: No edema, Normal pulses, Regular rate/rhythm, Normal S1 S2, No gallops, No rubs, No murmurs Gastrointestinal: Normal bowel sounds, Soft and benign, W/out hepatosplenomegaly , No ascites, No tenderness, No masses, No rebound, No guarding Musculoskeletal: No clubbing, No swelling, No contractures, No erythema, No tenderness, No warmth Neurological: Normal speech, Normal strength at 5/5 x4 extr, Cranial nerves 3- 12 intact Assessment And Plan - Current Problems (Diagnosis) (1) PE (pulmonary thromboembolism) Onset Date: 01/23/18 Current Visit: No Status: Acute Plan: continue home dose of xarelto monitor Platelets (2) CLL (chronic lymphocytic leukemia) Onset Date: 01/23/18 Current Visit: Yes Status: Chronic Plan: consulted patients hematology recommended hemolytic work up monitor counts transfuse for hgb <7 (3) Fatigue Onset Date: 02/08/18 Current Visit: Yes Status: Acute Plan: infectious screening so far neg. EBC chroncially elevated due to CLL suspect symptoms secondary to CA versus medications will review labs observe overnight serial enzymes Discharge Plan: Home Physician Review: Patient Assessed, Agree with Above Assessment and Plan Time Spent Managing PTS Care (In Minutes): 30
--- NOTE | 2018-02-08 20:51 | P.PN ---
Date of Service: 02/08/18 (Hematology/Oncology) Pt seen and examined at 12.30 pm today. She is known to me from clinic for her CLL. She was diagnosed with CLL in Jul 2017 at which time, it was atleast a Flores Stage II disease. She has been having B symptoms since then but has repeatedly refused treatment as she believes in a more holistic approach by taking CBD oil. Of note, she developed pulmonary embolism in January 2018 and is on xarelto. She was preparing to leave to [place] to live with her sister for a while, but felt quite unwell with generalized body aches and b/l arm aches, more on the left. She was admitted for observation and to r/o ACS. Troponins x1 has been negative. When seen today, she was comfortable and states that she feels much better. Denies any gross bleeding or bruising from any site. No melena or brbpr. Denies any fevers, chest pains, sob, cough, dysuria, N/V, diarrhea, abd pains, headches, blurry vision, gait problems. A 10 point ROS was done and pertinent points as in HPI. Vitals signs reviewed; Hemodynamically stable GenL obese, comfortable, not in any acute distress HEENT: AT/ NC/ Neck supple, mmm, throat clear, anicteric, b/l cervical lymphadenopathy Lymph Node: Survey reveals + palpable lymphadenopathy in the neck, axilla, or groin Chest: Good resp effort. No rales or rhonchi or bronchial breath sounds were heard. Heart: S1 S2 unremarkable. Abdomen: Limited exam due to habitus and position, NT, ND, BS+, soft. Neurologic: AAOx3; Ambulatory; normal gait Lower extremities: no edema Skin: 1cm skin abrasion on left wilde healing well/ pink granulation tissue. Labs: WBC 26K / Hb 7.8/ Plt 61K Lymphocytes 96% ANC 600; Monocytes 200 Retic 1.5% LDH 125 Bi 0.5 DEMAR negative Uric acid 6.5 PT 20/ PTT 37 Problems: 1. CLL: She had atleast Flores Stage II at diagnosis with favorable cytogenetics. She had diffuse lymphadenopathy and hepatosplenomegaly. Now with anemia and thrombocytopenia, likely she has progressed to Flores Stage IV disease. She has been refusing treatment inspite of being symptomatic. Her symptoms seems atypical for cardiac pain but more likely are B symptoms due to underlying disease. 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 We had a detailed discussion at length that she will have to consider starting treatment for CLL as soon as possible given the evidence of disease progression. She is also aware of the risk of transformation to a more aggressive lymphoma as well. She seems to be somewhat agreeable at this time. She remains comfortable and not overtly symptomatic from the anemia. Follow up CBC trend this evening as well given that she is on anticoagulation. Transfuse PRBC if Hb less than 7gm. No evidence of bleeding. Transfuse single donor platelets if any evidence of bleeding or if plt count less than 15,000. 2. PE: : January CTA: Posterior right lower lobe segemental branch and smaller filling defects in the posterior subsegmental branches on the left. Curently on Xarelto. Hold xarelto if plt count less that 50,000 or if bleeding. 3. Neutropenia: Standard infection precautions. ANC>500. Her ANC is around 600 + monocytes ~ 200. Secondary to underlying disease. She is afebrile and no signs of infection. She is aware to seek immediate medical attention if fevers > 100.5F or if any signs of infection. Guarded prognosis. If she is OK to be discharged from the cardiac point of view , she will follow up with me for further work up and discussion on 02/12/18 at 11.30 am. She lives alone but reports that she has friends that can come over to take care of her if discharged. Discussed with Dr Meyer.
[2018-02-08] MEDS: MELATONIN 3 MG TABLET PO PRN (21:51)
[2018-02-08] MEDS: RIVAROXABAN 15 MG TABLET PO SCH (21:51)
[2018-02-09 06:42] VITALS: O2SAT 98
[2018-02-09] MEDS: ACETAMINOPHEN 500 MG TAB PO PRN (07:11)
[2018-02-09 07:15] LABS: Absolute Lymphocytes (CBC) 28.3 K/uL (0.7-4.9); Absolute Monocytes 0.2 K/uL (0.1-1.3); Absolute Neutrophil 0.8 K/uL (1.8-8.0); Basophils % 0.1 % (0-1.3); Eosinophils % 0.5 % (0-4.4); Hematocrit 24.5 % (36.0-45.0); MCH 34.3 pg (27.0-35.0); MPV 11.1 fL (7.6-11.3); Monocytes % 0.7 % (3.3-12.3); RBC Red Blood Cell Count 2.36 M/uL (3.86-4.86)
[2018-02-09] MEDS: RIVAROXABAN 15 MG TABLET PO SCH (09:00)
[2018-02-09] MEDS: VITAMIN D 1000 UNIT TAB PO SCH (09:39)
[2018-02-09 10:30] LABS: Blood Morphology Comment NOT SEEN (NOT SEEN); Platelet Estimate DECR
--- NOTE | 2018-02-09 10:38 | P.DS ---
Admission Date: 02/07/18 Discharge Date: 02/09/18 Disposition: ROUTINE DISCHARGE Discharge Condition: FAIR Reason for Admission: fatigue Consultations: Oncology Dr Rizvi - Problems (1) PE (pulmonary thromboembolism) Onset Date: 01/23/18 Current Visit: No Status: Acute (2) CLL (chronic lymphocytic leukemia) Onset Date: 01/23/18 Current Visit: Yes Status: Chronic (3) Fatigue Onset Date: 02/08/18 Current Visit: Yes Status: Acute Brief History of Present Illness: 67 year old female with history of CLL and recently diagnosed with PE who presented with complaints of fatigue, generalized body ache and loss of appetite.Per patient symptoms have been presented for over 3 months however seems to be worse everytime she overtly exerts herself.She had planned a trip to her sisters and was packing yesterday but felt like she couldn't make the long drive since she felt extremely tired.She called her PCPs office and was advised to come in. she denied any fever, chill,s weightloss,change in bowel habit, urinary symptoms , cough or headache. Hospital Course: Patient was admitted to the floor.Blood work was done which was unrevealing except for pancytopenia which is chronic and in line with her diagnosis of CLL. Her oncologist was consulted.She had a hemolysis work up done this was negative.She felt much stronger and improved and was discharged home in stable condition to follow up with her oncologist. Vital Signs/Physical Exam: Temp Pulse Resp BP Pulse Ox 97.8 F 68 16 101/58 L 98 02/09/18 04:00 02/09/18 04:00 02/09/18 04:00 02/09/18 04:00 02/09/18 04:00 General: Alert, In no apparent distress, Oriented x3 HEENT: Atraumatic, Normocephalic, PERRLA Neck: Supple, 2+ carotid pulse no bruit, JVD not distended, No Thyromegaly, No LAD Respiratory: Clear to auscultation bilaterally, Normal air movement Cardiovascular: No edema, Normal pulses, Regular rate/rhythm Gastrointestinal: Normal bowel sounds, Soft and benign, Non-distended, W/out hepatosplenomegaly Musculoskeletal: No swelling, No contractures, No erythema, No tenderness, No warmth Neurological: Normal strength at 5/5 x4 extr Laboratory Data at Discharge: WBC 29.5 K/uL (4.3-10.9) H* 02/09/18 06:45 Hgb 8.1 g/dL (12.0-15.0) L 02/09/18 06:45 Hct 24.5 % (36.0-45.0) L 02/09/18 06:45 Plt Count 68 K/uL (152-406) L 02/09/18 06:45 PT 20.3 SECONDS (9.5-12.5) H 02/08/18 12:34 INR 1.71 02/08/18 12:34 APTT 37.2 SECONDS (24.3-36.9) H 02/08/18 12:34 Sodium 140 mEq/L (135-145) 02/08/18 04:16 Potassium 4.0 mEq/L (3.6-5.0) 02/08/18 04:16 BUN 12 mg/dL (6-20) 02/08/18 04:16 Creatinine 0.69 mg/dL (0.44-1.00) 02/08/18 04:16 Glucose 112 mg/dL (65-120) 02/08/18 04:16 Uric Acid 6.2 mg/dL (2.6-8.0) 02/08/18 12:34 Magnesium 2.1 mg/dL (1.8-2.5) 02/07/18 13:40 Total Bilirubin 0.5 mg/dL (0.3-1.2) 02/07/18 13:40 AST 17 IU/L (10-42) 02/07/18 13:40 ALT 13 IU/L (10-60) 02/07/18 13:40 Alkaline Phosphatase 55 IU/L (42-121) 02/07/18 13:40 Troponin I < 0.03 ng/mL (<0.03) 02/08/18 12:34 B-Natriuretic Peptide 132 pg/ml (<=100) H 02/07/18 13:40 Triglycerides 417 mg/dL (35-160) H 02/07/18 21:57 Cholesterol 138 mg/dL (<200) 02/07/18 21:57 LDL Cholesterol Direct 63 mg/dl (<130) 02/08/18 12:34 HDL Cholesterol 17 mg/dL (29-89) L 02/07/18 21:57 Cholesterol/HDL Ratio 8.12 02/07/18 21:57 Home Medications: Cholecalciferol (Vitamin D3) [Vitamin D 1000 Iu Tab*] 5,000 unit PO DAILY Rivaroxaban [Xarelto*] 15 mg PO BID #42 tablet 01/23/18 Rivaroxaban [Xarelto] 20 mg PO DAILY #30 tablet 01/23/18 Patient Discharge Instructions: Follow up with onologist in 1 week. Return to ER with new or worsening symptoms Diet: Regular Activity: Ad jamaal Followup: Kassidy Snider MD [ACTIVE - CAN ADMIT] - Physician Review: Patient Assessed, Agree with Above Assessment and Plan Time spent managing pt's care (in minutes): 30
[2018-02-09 11:10] VITALS: BP 118/67; TEMP 98.5
== END 2018-02-09 12:30 | disposition home or self-care (01) ==
LOC: ER 11:52 → ERHOLD 15:50 → 2ND 19:50
PROVIDERS: ADMIT Internal Medicine; ATTEND Internal Medicine
DX: R53.83 Other fatigue (principal); I26.99 Other pulmonary embolism without acute cor pulmonale; C91.10 Chronic lymphocytic leukemia of B-cell type not having achieved remission; Z88.0 Allergy status to penicillin
CPT/HCPCS: 36415 ×2; 71045; 80048 ×2; 80061; 80076; 81003; 82248; 82550 ×3; 82553 ×3; 82728; 83010; 83540; 83615; 83721 ×2; 83735; 83880; 84466; 84484 ×4; 84550; 85025 ×3; 85044; 85610 ×2; 85730 ×2; 86850; 86880; 86900; 86901; 93005; 96360; 99285; G0378 ×2; J7030

== ENCOUNTER 2018-02-19 16:42 | Emergency (ER) | payer OTHER ==
[2018-02-19 18:26] LABS: Hematocrit 23.9 % (36.0-45.0); MCH 34.2 pg (27.0-35.0); MCV 106.4 fL (80-100); RBC Red Blood Cell Count 2.25 M/uL (3.86-4.86)
--- NOTE | 2018-02-19 18:51 | EDPHYS ---
Physician Documentation [facility] Name: Lisy Betts Age: 67 yrs Sex: Female : 1950 Arrival Date: 02/19/2018 Time: 16:50 Bed 23 Private MD: ED Physician Javed Osborne HPI: 02/19 17:50 This 67 yrs old Female presents to ER via Ambulatory with complaints of nathaniel Abnormal Lab Results. 17:50 labs off. Onset: The symptoms/episode began/occurred just prior to arrival. Severity of nathaniel symptoms: At their worst the symptoms were none. The patient has not experienced similar symptoms in the past. Historical: - Allergies: 17:20 PENICILLINS; hb - Home Meds: 17:20 Xarelto Oral [Active]; hb - PMHx: 17:20 CLL; Pulmonary Embolism; UTI; hb - Immunization history:: Adult Immunizations up to date. - Social history:: Smoking status: Patient/guardian denies using tobacco. - Family history:: not pertinent. ROS: 17:50 Constitutional: Negative for fever, chills, and weight loss, Eyes: Negative for injury, nathaniel pain, redness, and discharge, ENT: Negative for injury, pain, and discharge, Neck: Negative for injury, pain, and swelling, Cardiovascular: Negative for chest pain, palpitations, and edema, Respiratory: Negative for shortness of breath, cough, wheezing, and pleuritic chest pain, Abdomen/GI: Negative for abdominal pain, nausea, vomiting, diarrhea, and constipation, Back: Negative for injury and pain, : Negative for injury, bleeding, discharge, and swelling, MS/Extremity: Negative for injury and deformity, Skin: Negative for injury, rash, and discoloration, Neuro: Negative for headache, weakness, numbness, tingling, and seizure, Psych: Negative for depression, anxiety, suicide ideation, homicidal ideation, and hallucinations, Allergy/Immunology: Negative for hives, rash, and allergies, Endocrine: Negative for neck swelling, polydipsia, polyuria, polyphagia, and marked weight changes, Hematologic/Lymphatic: Negative for swollen nodes, abnormal bleeding, and unusual bruising. Exam: 17:51 Constitutional: This is a well developed, well nourished patient who is awake, alert, nathaniel and in no acute distress. Head/Face: Normocephalic, atraumatic. Eyes: Pupils equal round and reactive to light, extra-ocular motions intact. Lids and lashes normal. Conjunctiva and sclera are non-icteric and not injected. Cornea within normal limits. Periorbital areas with no swelling, redness, or edema. ENT: Nares patent. No nasal discharge, no septal abnormalities noted. Tympanic membranes are normal and external auditory canals are clear. Oropharynx with no redness, swelling, or masses, exudates, or evidence of obstruction, uvula midline. Mucous membranes moist. Neck: Trachea midline, no thyromegaly or masses palpated, and no cervical lymphadenopathy. Supple, full range of motion without nuchal rigidity, or vertebral point tenderness. No Meningismus. Chest/axilla: Normal chest wall appearance and motion. Nontender with no deformity. No lesions are appreciated. Cardiovascular: Regular rate and rhythm with a normal S1 and S2. No gallops, murmurs, or rubs. Normal PMI, no JVD. No pulse deficits. Respiratory: Lungs have equal breath sounds bilaterally, clear to auscultation and percussion. No rales, rhonchi or wheezes noted. No increased work of breathing, no retractions or nasal flaring. Abdomen/GI: Soft, non-tender, with normal bowel sounds. No distension or tympany. No guarding or rebound. No evidence of tenderness throughout. Back: No spinal tenderness. No costovertebral tenderness. Full range of motion. Female : Normal external genitalia. Skin: Warm, dry with normal turgor. Normal color with no rashes, no lesions, and no evidence of cellulitis. MS/ Extremity: Pulses equal, no cyanosis. Neurovascular intact. Full, normal range of motion. Neuro: Awake and alert, GCS 15, oriented to person, place, time, and situation. Cranial nerves II-XII grossly intact. Motor strength 5/5 in all extremities. Sensory grossly intact. Cerebellar exam normal. Normal gait. Psych: Awake, alert, with orientation to person, place and time. Behavior, mood, and affect are within normal limits. Vital Signs: 17:18 BP 118 / 49; Pulse 79; Resp 16; Temp 98.9; Pulse Ox 97% on R/A; Weight 99.79 kg; Height hb 5 ft. 5 in. (165.10 cm); Pain 0/10; 19:06 BP 115 / 62; Pulse 74; Resp 17; Pulse Ox 100% on R/A; Pain 0/10; ed1 17:18 Body Mass Index 36.61 (99.79 kg, 165.10 cm) hb MDM: 17:29 Patient medically screened. [facility] 17:54 Data reviewed: vital signs, nurses notes, lab test result(s). [facility] 02/19 17:49 Order name: CBC w/o diff; Complete Time: 18:43 [facility] 02/19 17:49 Order name: Chem 7; Complete Time: 18:43 [facility] Administered Medications: 18:47 Not Given (Physician Discretion): NS 0.9% 500 ml IV at bolus once ed1 Disposition: 02/19/18 18:51 Discharged to Home. Impression: Weakness - sent in for sodium check, Anemia, unspecified. - Condition is Stable. - Discharge Instructions: Anemia, Nonspecific, Weakness, Weakness, [id number]. - Medication Reconciliation Form, Thank You Letter, Antibiotic Education, Prescription Opioid Use form. - Follow up: Private Physician; When: 2 - 3 days; Reason: Recheck today's complaints, Continuance of care, Re-evaluation by your physician. Follow up: Kiara Caballero MD; When: 1 - 2 days; Reason: Recheck today's complaints, Continuance of care, Re-evaluation by your physician. - Problem is new. - Symptoms have improved. Signatures: Dispatcher [employer] EDMS Javed Osborne MD MD cha Therrien, Shelly, PNEUMATIC TOOL OPERATOR-C PNEUMATIC TOOL OPERATOR-Csnw Elizabeth Mauricio, MVA REACTOR OPERATOR HEAD MVA REACTOR OPERATOR HEAD ed1 Brittany Vidal, HARLEY RN Corrections: (The following items were deleted from the chart) 18:51 18:51 02/19/2018 18:51 Discharged to Home. Impression: Weakness - sent in for sodium nathaniel check. Condition is Stable. Discharge Instructions: Weakness, Weakness, [id number]. Forms are Medication Reconciliation Form, Thank You Letter, Antibiotic Education, Prescription Opioid Use. Follow up: Private Physician; When: 2 - 3 days; Reason: Recheck today's complaints, Continuance of care, Re-evaluation by your physician. Problem is new. Symptoms have improved. [facility] 18:53 18:51 02/19/2018 18:51 Discharged to Home. Impression: Weakness - sent in for sodium nathaniel check; Anemia, unspecified. Condition is Stable. Discharge Instructions: Weakness, Weakness, [id number]. Forms are Medication Reconciliation Form, Thank You Letter, Antibiotic Education, Prescription Opioid Use. Follow up: Private Physician; When: 2 - 3 days; Reason: Recheck today's complaints, Continuance of care, Re-evaluation by your physician. Problem is new. Symptoms have improved. nathaniel 19:07 18:53 02/19/2018 18:51 Discharged to Home. Impression: Weakness - sent in for sodium ed1 check; Anemia, unspecified. Condition is Stable. Discharge Instructions: Weakness, Weakness, [id number], Anemia, Nonspecific. Forms are Medication Reconciliation Form, Thank You Letter, Antibiotic Education, Prescription Opioid Use. Follow up: Private Physician; When: 2 - 3 days; Reason: Recheck today's complaints, Continuance of care, Re-evaluation by your physician. Follow up: Kiara Nugent; When: 1 - 2 days; Reason: Recheck today's complaints, Continuance of care, Re-evaluation by your physician. Problem is new. Symptoms have improved. nathaniel
--- NOTE | 2018-02-19 18:51 | ER ---
Nurse's Notes [facility] Name: Lisy Betts Age: 67 yrs Sex: Female : 1950 Arrival Date: 02/19/2018 Time: 16:50 Bed 23 Private MD: Diagnosis: Weakness-sent in for sodium check;Anemia, unspecified Presentation: 02/19 17:17 Presenting complaint: Patient states: My oncologist told me to come to the ER because hb my sodium is very high. Hx CLL. Transition of care: patient was not received from another setting of care. Onset of symptoms was February 19, 2018. Initial Sepsis Screen: Does the patient meet any 2 criteria? No. Patient's initial sepsis screen is negative. Does the patient have a suspected source of infection? No. Patient's initial sepsis screen is negative. Care prior to arrival: None. 17:17 Method Of Arrival: Ambulatory hb 17:17 Acuity: ARNOLD 3 hb Historical: - Allergies: 17:20 PENICILLINS; hb - Home Meds: 17:20 Xarelto Oral [Active]; hb - PMHx: 17:20 CLL; Pulmonary Embolism; UTI; hb - Immunization history:: Adult Immunizations up to date. - Social history:: Smoking status: Patient/guardian denies using tobacco. - Family history:: not pertinent. Screenin:21 Abuse screen: Denies threats or abuse. Denies injuries from another. Nutritional ed1 screening: No deficits noted. Tuberculosis screening: No symptoms or risk factors identified. Fall Risk None identified. Assessment: 17:21 General: Appears in no apparent distress. Behavior is calm, cooperative. Pain: Denies ed1 pain. Neuro: Level of Consciousness is awake, alert, obeys commands, Oriented to person, place, time, situation. Cardiovascular: Heart tones S1 S2 present Chest pain is denied. Respiratory: Airway is patent Respiratory effort is even, unlabored, Respiratory pattern is regular, symmetrical, Breath sounds are clear bilaterally. GI: No signs and/or symptoms were reported involving the gastrointestinal system. : No signs and/or symptoms were reported regarding the genitourinary system. EENT: No signs and/or symptoms were reported regarding the EENT system. Derm: Skin is pink, warm \T\ dry. Musculoskeletal: Circulation, motion, and sensation intact. 17:21 Reassessment: I agree with assessment completed by SUPA Johnson . aa5 19:06 Reassessment: Patient appears in no apparent distress at this time. Patient and/or ed1 family updated on plan of care and expected duration. Pain level reassessed. Patient is alert, oriented x 3, equal unlabored respirations, skin warm/dry/pink. Patient denies pain at this time. Vital Signs: 17:18 BP 118 / 49; Pulse 79; Resp 16; Temp 98.9; Pulse Ox 97% on R/A; Weight 99.79 kg; Height hb 5 ft. 5 in. (165.10 cm); Pain 0/10; 19:06 BP 115 / 62; Pulse 74; Resp 17; Pulse Ox 100% on R/A; Pain 0/10; ed1 17:18 Body Mass Index 36.61 (99.79 kg, 165.10 cm) hb ED Course: 16:50 Patient arrived in ED. mr 17:18 Triage completed. hb 17:20 Arm band placed on left wrist. hb 17:21 Patient has correct armband on for positive identification. Placed in gown. Bed in low ed1 position. Call light in reach. 17:29 Javed Osborne MD is Attending Physician. nathaniel 17:57 Elizabeth Mauricio LVN is Primary Nurse. ed1 18:10 Initial lab(s) drawn, by me, sent to lab. Inserted saline lock: 22 gauge in left ed1 antecubital area, using aseptic technique. Blood collected. 18:52 Kiara Caballero MD is Referral Physician. nathaniel 19:06 No provider procedures requiring assistance completed. IV discontinued, intact, ed1 bleeding controlled, No redness/swelling at site. Pressure dressing applied. Administered Medications: 18:47 Not Given (Physician Discretion): NS 0.9% 500 ml IV at bolus once ed1 Outcome: 18:51 Discharge ordered by . nathaniel 19:06 Discharged to home ambulatory. ed1 19:06 Condition: good 19:06 Discharge instructions given to patient, Instructed on discharge instructions, follow up and referral plans. Demonstrated understanding of instructions, follow-up care. 19:07 Patient left the ED. ed1 Signatures: Javed Osborne MD MD cha Rivera, Maria mr Calderon, Audri, HARLEY RN aa5 Elizabeth Mauricio LVN LVN ed1 Vidal, Brittany, RN RN hb
[2018-02-19 19:16] VITALS: TEMP 98.9
[2018-02-19 19:18] VITALS: BP 115/62; O2SAT 100
== END 2018-02-19 19:07 | disposition home or self-care (01) ==
LOC: ER 16:42
DX: D64.9 Anemia, unspecified (principal); R53.1 Weakness; Z88.0 Allergy status to penicillin; Z79.02 Long term (current) use of antithrombotics/antiplatelets
CPT/HCPCS: 36415; 80048; 80053; 85027; 85610; 85730; 99283

== ENCOUNTER 2018-03-21 14:00 | Observation (INO) | payer OTHER ==
[2018-03-21 15:05] LABS: Absolute Monocytes 0.2 K/uL (0.1-1.3); Absolute Neutrophil 1.3 K/uL (1.8-8.0); Basophils % 0.1 % (0-1.3); Eosinophils % 0.4 % (0-4.4); Hematocrit 19.1 % (36.0-45.0); Lymphocytes % 95.5 % (15.3-44.8); MCH 35.9 pg (27.0-35.0); MPV 10.8 fL (7.6-11.3); Monocytes % 0.6 % (3.3-12.3); Protime INR 1.16; RBC Red Blood Cell Count 1.75 M/uL (3.86-4.86)
[2018-03-21 15:18] LABS: Potassium 4.1 mEq/L (3.6-5.0)
[2018-03-21] MEDS ORDERED: IBUPROFEN 400 MG TAB ONE (15:56)
[2018-03-21] MEDS ORDERED: IBUPROFEN 200 MG TAB PO ONE (15:56)
--- NOTE | 2018-03-21 16:06 | ER ---
Nurse's Notes [facility] Name: Lisy Betts Age: 68 yrs Sex: Female : 1950 Arrival Date: 03/21/2018 Time: 14:03 Bed 5 Private MD: Aleksey uBsh E Diagnosis: Anemia, unspecified;Weakness;CLL Presentation: 03/21 14:16 Presenting complaint: Patient states: Sent by oncologist for low HGB, 6.3. Transition aj of care: patient was not received from another setting of care. Onset of symptoms was March 21, 2018. Risk Assessment: Do you want to hurt yourself or someone else? Patient reports no desire to harm self or others. Care prior to arrival: None. 14:16 Method Of Arrival: Ambulatory aj 14:16 Acuity: ARNOLD 3 aj 14:29 Initial Sepsis Screen: Does the patient meet any 2 criteria? No. Patient's initial hj sepsis screen is negative. Does the patient have a suspected source of infection? No. Patient's initial sepsis screen is negative. Triage Assessment: 14:18 General: Appears in no apparent distress. comfortable, Behavior is calm, cooperative, aj appropriate for age. Pain: Denies pain. Neuro: Level of Consciousness is awake, alert, obeys commands, Oriented to person, place, time, situation, Appropriate for age. Respiratory: Airway is patent Respiratory effort is even, unlabored, Respiratory pattern is regular, symmetrical. Derm: Skin is intact, is healthy with good turgor, Skin is pale. Historical: - Allergies: 14:18 PENICILLINS; aj - Home Meds: 14:18 None [Active]; aj - PMHx: 14:18 CLL; Pulmonary Embolism; UTI; aj - PSHx: 14:18 None; aj - Immunization history:: Adult Immunizations up to date. - Social history:: Smoking status: Patient/guardian denies using tobacco. - Ebola Screening: : Patient negative for fever greater than or equal to 101.5 degrees Fahrenheit, and additional compatible Ebola Virus Disease symptoms Patient denies exposure to infectious person Patient denies travel to an Ebola-affected area in the 21 days before illness onset No symptoms or risks identified at this time. Screenin:28 Abuse screen: Denies threats or abuse. Denies injuries from another. Nutritional hj screening: No deficits noted. Tuberculosis screening: No symptoms or risk factors identified. Fall Risk Secondary diagnosis (15 points) . Assessment: 14:29 General: Appears in no apparent distress. uncomfortable, Behavior is calm, cooperative, hj appropriate for age. Pain: Denies pain. Neuro: Level of Consciousness is awake, alert, obeys commands, Oriented to person, place, time, situation, Appropriate for age. Cardiovascular: Capillary refill is > 3 seconds Patient's skin is warm and dry. Respiratory: Airway is patent Respiratory effort is even, unlabored, Respiratory pattern is regular, symmetrical. GI: No signs and/or symptoms were reported involving the gastrointestinal system. : No signs and/or symptoms were reported regarding the genitourinary system. EENT: No signs and/or symptoms were reported regarding the EENT system. Derm: No signs and/or symptoms reported regarding the dermatologic system. Musculoskeletal: No signs and/or symptoms reported regarding the musculoskeletal system. 15:36 Reassessment: Patient and/or family updated on plan of care and expected duration. Pain hj level reassessed. Patient is alert, oriented x 3, equal unlabored respirations, skin warm/dry/pink. awaiting results;. 16:35 Reassessment: Patient and/or family updated on plan of care and expected duration. Pain hj level reassessed. Patient is alert, oriented x 3, equal unlabored respirations, skin warm/dry/pink. for admit; Hgb- 6.3;. Vital Signs: 14:18 BP 114 / 65; Pulse 88; Resp 17; Temp 99.2; Pulse Ox 96% on R/A; Weight 100.7 kg; Height aj 5 ft. 3 in. (160.02 cm); 15:36 BP 131 / 59; Pulse 82; Resp 18; Pulse Ox 100% on R/A; hj 16:34 BP 113 / 60; Pulse 84; Resp 18; Pulse Ox 100% on R/A; hj 14:18 Body Mass Index 39.33 (100.70 kg, 160.02 cm) aj ED Course: 14:03 Patient arrived in ED. mr 14:04 Aleksey Bush MD is Private Physician. mr 14:17 Benedicto Garcia MD is Attending Physician. kdr 14:17 Triage completed. aj 14:18 Arm band placed on left wrist. Patient placed in an exam room. aj 14:28 Ollie White, RN is Primary Nurse. hj 14:29 Patient has correct armband on for positive identification. Placed in gown. Bed in low hj position. Call light in reach. Side rails up X 1. Adult w/ patient. 14:44 Missed attempt(s): 20 gauge in right antecubital area. Bleeding controlled, band aid dh3 applied, catheter tip intact. 14:45 Initial lab(s) drawn, by me, sent to lab. T\T\S collected, blood band applied to patient. dh3 Inserted saline lock: 20 gauge in left antecubital area, using aseptic technique. Blood collected. 16:03 Gabe Espitia MD is Hospitalizing Provider. kdr 16:55 Javed Benedict PA is PHCP. lloyd 18:03 Note: ct delayed due to pt receiving blood, nurse stated to check back in 15 min. 2 18:35 Radiology exam delayed due to IV insertion attempt and/or patient not having nj appropriate IV at this time. pt has no IV access at this time and current IV being used for blood at this time. 19:02 Bb Add On Sent. hj 19:02 No provider procedures requiring assistance completed. Patient admitted, IV remains in hj place. intact. Administered Medications: 16:00 Drug: Ibuprofen 600 mg Route: PO; hj 16:00 Follow up: Response: No adverse reaction Outcome: 16:05 Decision to Hospitalize by Provider. kdr 19:03 Admitted to Med/surg accompanied by nurse, accompanied by tech, via stretcher, room hj 210, on monitor, with chart, Report called to HARLEY Reynolds 19:03 Condition: stable 19:03 Instructed on the need for admit, Demonstrated understanding of instructions. 19:03 Patient left the ED. Signatures: Paris Jeffries RN RN Benedicto Selby MD MD kdr Rivera, Maria mr Ollie White RN RN Javed Benedict PA PA cp Jordan, Nathan nj McGuire, Victoria [facility] Mery Leonardo [facility] Jack Conklin ks6 Corrections: (The following items were deleted from the chart) 14:52 14:48 Missed attempt(s): 20 gauge in right antecubital area. Bleeding controlled, band dh3 aid applied, catheter tip intact. ks6
--- NOTE | 2018-03-21 16:06 | EDPHYS ---
Physician Documentation [facility] Name: Lisy Betts Age: 68 yrs Sex: Female : 1950 Arrival Date: 03/21/2018 Time: 14:03 Bed 5 Private MD: Aleksey Bush E ED Physician Benedicto Garcia HPI: 03/21 16:12 This 68 yrs old Female presents to ER via Ambulatory with complaints of kdr Abnormal Lab Results. 16:12 The patient has become weak and fatigued. She has not had a fever or any other problems kdr or concerns.. Onset: The symptoms/episode began/occurred gradually, at an unknown time. Severity of symptoms: At their worst the symptoms were mild moderate just prior to arrival, in the emergency department the symptoms are unchanged. The patient has not experienced similar symptoms in the past. Historical: - Allergies: 14:18 PENICILLINS; aj - Home Meds: 14:18 None [Active]; aj - PMHx: 14:18 CLL; Pulmonary Embolism; UTI; aj - PSHx: 14:18 None; aj - Immunization history:: Adult Immunizations up to date. - Social history:: Smoking status: Patient/guardian denies using tobacco. - Ebola Screening: : Patient negative for fever greater than or equal to 101.5 degrees Fahrenheit, and additional compatible Ebola Virus Disease symptoms Patient denies exposure to infectious person Patient denies travel to an Ebola-affected area in the 21 days before illness onset No symptoms or risks identified at this time. ROS: 16:12 Constitutional: Negative for fever, chills, and weight loss, Eyes: Negative for injury, kdr pain, redness, and discharge, Neck: Negative for injury, pain, and swelling, Abdomen/GI: Negative for abdominal pain, nausea, vomiting, diarrhea, and constipation, Back: Negative for injury and pain, : Negative for injury, bleeding, discharge, and swelling, MS/Extremity: Negative for injury and deformity, Skin: Negative for injury, rash, and discoloration, Neuro: Negative for headache, weakness, numbness, tingling, and seizure activity. Psych: Negative for depression, anxiety, suicide ideation, homicidal ideation, and hallucinations, Allergy/Immunology: Negative for hives, rash, and allergies, Endocrine: Negative for neck swelling, polydipsia, polyuria, polyphagia, and marked weight changes, Hematologic/Lymphatic: Negative for swollen nodes, abnormal bleeding, and unusual bruising. 16:12 Cardiovascular: Positive for chest pain, with movement, Negative for edema, orthopnea, palpitations, paroxysmal nocturnal dyspnea, With exertion. 16:12 Respiratory: Positive for dyspnea on exertion, shortness of breath, on exertion. Negative for cough, orthopnea, pleurisy, sputum production, wheezing. Exam: 16:12 Constitutional: This is a well developed, well nourished patient who is awake, alert, kdr and in no acute distress. Head/Face: Normocephalic, atraumatic. Eyes: Pupils equal round and reactive to light, extra-ocular motions intact. Lids and lashes normal. Conjunctiva and sclera are non-icteric and not injected. Cornea within normal limits. Periorbital areas with no swelling, redness, or edema. Neck: Trachea midline, no thyromegaly or masses palpated, and no cervical lymphadenopathy. Supple, full range of motion without nuchal rigidity, or vertebral point tenderness. No Meningismus. Chest/axilla: Normal chest wall appearance and motion. Nontender with no deformity. No lesions are appreciated. Cardiovascular: Regular rate and rhythm with a normal S1 and S2. No gallops, murmurs, or rubs. Normal PMI, no JVD. No pulse deficits. Respiratory: Lungs have equal breath sounds bilaterally, clear to auscultation and percussion. No rales, rhonchi or wheezes noted. No increased work of breathing, no retractions or nasal flaring. Abdomen/GI: Soft, non-tender, with normal bowel sounds. No distension or tympany. No guarding or rebound. No evidence of tenderness throughout. Back: No spinal tenderness. No costovertebral tenderness. Full range of motion. Skin: Warm, dry with normal turgor. Normal color with no rashes, no lesions, and no evidence of cellulitis. MS/ Extremity: Pulses equal, no cyanosis. Neurovascular intact. Full, normal range of motion. Neuro: Awake and alert, GCS 15, oriented to person, place, time, and situation. Cranial nerves II-XII grossly intact. Motor strength 5/5 in all extremities. Sensory grossly intact. Cerebellar exam normal. Normal gait. Psych: Awake, alert, with orientation to person, place and time. Behavior, mood, and affect are within normal limits. Vital Signs: 14:18 BP 114 / 65; Pulse 88; Resp 17; Temp 99.2; Pulse Ox 96% on R/A; Weight 100.7 kg; Height aj 5 ft. 3 in. (160.02 cm); 15:36 BP 131 / 59; Pulse 82; Resp 18; Pulse Ox 100% on R/A; hj 16:34 BP 113 / 60; Pulse 84; Resp 18; Pulse Ox 100% on R/A; hj 14:18 Body Mass Index 39.33 (100.70 kg, 160.02 cm) aj MDM: 16:05 Patient medically screened. [facility] 16:12 Data reviewed: vital signs, nurses notes, lab test result(s), EKG, radiologic studies. kdr Counseling: I had a detailed discussion with the patient and/or guardian regarding: the historical points, exam findings, and any diagnostic results supporting the discharge/admit diagnosis, lab results, radiology results, the need for further work-up and treatment in the hospital. 03/21 14:17 Order name: CBC with Diff [facility] 03/21 14:17 Order name: Chem 7; Complete Time: 15:34 [facility] 03/21 14:17 Order name: Type And Screen [facility] 03/21 14:17 Order name: PT-INR; Complete Time: 15:34 [facility] 03/21 15:14 Order name: Troponin (emerg Dept Use Only); Complete Time: 16:58 [facility] 03/21 16:39 Order name: Bb Add On bd 03/21 16:54 Order name: Diet Ada 1800 Kaushik; Complete Time: 16:54 hj Administered Medications: 16:00 Drug: Ibuprofen 600 mg Route: PO; hj 16:00 Follow up: Response: No adverse reaction Disposition: 03/21/18 16:05 Hospitalization ordered by Gabe Espitia for Observation. Preliminary diagnosis are Anemia, unspecified, Weakness, CLL. - Bed requested for Telemetry/MedSurg (observation). - Status is Observation. hj - Condition is Fair. - Problem is new. - Symptoms are unchanged. UTI on Admission? No Signatures: Dispatcher [employer] EDMS Milagro Moraes Amanda, RN RN aj Rittger, Kevin, MD MD kdr Therrien, Shelly, STARCH CRAB-C STARCH CRAB-Vuw Ollie White RN RN hj Corrections: (The following items were deleted from the chart) 17:01 16:05 Hospitalization Ordered by Gabe Espitia MD for Observation. Preliminary diagnosis bd is Anemia, unspecified; Weakness; CLL. Bed requested for Telemetry/MedSurg (observation). Status is Observation. Condition is Fair. Problem is new. Symptoms are unchanged. UTI on Admission? No. kdr 19:03 17:01 03/21/2018 16:05 Hospitalization Ordered by Gabe Espitia MD for Observation. hj Preliminary diagnosis is Anemia, unspecified; Weakness; CLL. Bed requested for Telemetry/MedSurg (observation). Status is Observation. Condition is Fair. Problem is new. Symptoms are unchanged. UTI on Admission? No. bd
[2018-03-21 17:24] VITALS: BMI 39.3
[2018-03-21] MEDS ORDERED: NA CHLORIDE 0.9% 250 ML ONE (17:32)
--- NOTE | 2018-03-21 17:34 | P.HP ---
Certification for Inpatient Patient admitted to: Observation With expected LOS: <2 Midnights Patient will require the following post-hospital care: None Practitioner: I am a practitioner with admitting privileges, knowledge of patient current condition, hospital course, and medical plan of care. Services: Services provided to patient in accordance with Admission requirements found in Title 42 Section 412.3 of the Code of Federal Regulations Patient History Date of Service: 03/21/18 Primary Care Provider: changing from Chirag to Dr. Bush Reason for admission: anemia, LOPEZ, chest pain History of Present Illness: Pt was dx with CLL in Jul, 2 days after her 's . She has declined chemo or radiation and was stage 2 at diagnosis. she reluctantly started Xarelto but does not like the side effects. She has become increasingly tired, drained, and short of breath. Pt states she really wanted to visit her sister in [place] and drove herself there. She was seen in the ER a few times there for dizziness. Rx'd Meclizine. This week pt felt so poorly and had increased blood and clots in her mouth on awakening that she called Dr. Balbuena's office. She states she has started to have extremely sharp chest pain and dyspnea on exertion Allergies Penicillins Allergy (Verified 03/21/18 16:58) Hives Home medications list reviewed: Yes Home Medications: NK [No Home Meds] 03/21/18 - Past Medical/Surgical History Has patient received pneumonia vaccine in the past: No Diabetic: No -: Chronic Leukemia -: 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 -: PE -: cyst removed from left breast -: left ankle surgery -: Hysterectomy 2018 -: Abdominal hernia repair with mesh placement - Family History Mother -: Heart disease, Other (see notes) Notes: ALZ, [place] Father -: Cancer Notes: Pancreatic CA - Social History Smoking Status: Never smoker Alcohol use: No CD- Drugs: No Caffeine use: Yes Place of Residence: Home (lives upstairs, alone, no nearby family) Review of Systems General: Weakness Eyes: Unremarkable ENT: Other (awakes with blood in her mouth) Respiratory: Shortness of Breath, SOB with Excertion Gastrointestinal: Unremarkable Genitourinary: Unremarkable Musculoskeletal: Unremarkable Integumentary: Other (pallor) Neurological: Weakness Lymphatics: Unremarkable Physical Examination - Physical Exam General: Alert, In no apparent distress, Oriented x3 HEENT: Atraumatic, Normocephalic Neck: Supple, 2+ carotid pulse no bruit Respiratory: Clear to auscultation bilaterally Cardiovascular: No edema, Normal pulses, Regular rate/rhythm Capillary refill: <2 Seconds Gastrointestinal: Normal bowel sounds, Soft and benign Integumentary: No rashes Neurological: Abnormal strength External genitalia: Deferred - Studies Laboratory Data (last 24 hrs) 03/21/18 14:45: PT 13.7 H, INR 1.16 03/21/18 14:45: Sodium 139, Potassium 4.1, BUN 11, Creatinine 0.79, Glucose 123 H 03/21/18 14:45: WBC 37.7 H*, Hgb 6.3 L*, Hct 19.1 L*, Plt Count 51 L Assessment and Plan - Problems (Diagnosis) (1) Anemia Current Visit: Yes Status: Acute Plan: Transfuse 2 units PRBC (2) Chest pain Current Visit: Yes Status: Acute Plan: Assess for PE. Treat anemia, continue treatment for anemia - Advance Directives Does patient have a Living Will: No Does patient have a Durable POA for Healthcare: No
[2018-03-21] MEDS ORDERED: PNEUMOCOCCAL VACCINE 0.5 ML IMVAC ONE (18:00)
[2018-03-21] MEDS ORDERED: DIPHENHYDRAMINE 50 MG/ML VIAL IV ONE (19:30)
[2018-03-21] MEDS ORDERED: FUROSEMIDE 20 MG/ 2ML VIAL IV ONE (19:30)
[2018-03-21] MEDS ORDERED: NA CHLORIDE 0.9% 250 ML IV SCH (19:30)
--- NOTE | 2018-03-21 21:49 | RAD REPORT ---
EXAM DESCRIPTION: CT - Chest For Pe Angio - 03/21/2018 9:31 pm CLINICAL HISTORY: Sharp chest pain, dyspnea on exertion, history of pulmonary embolism, history of CLL COMPARISON: PE study January 22 TECHNIQUE: Dynamically enhanced 3 mm thick images of the chest were obtained during administration o f approximately 150mL Isovue 370 IV contrast. Coronal and oblique reconstruction images were generate d and reviewed. Exam utilizes a protocol to evaluate the pulmonary arterial tree. All CT scans are performed using dose optimization technique as appropriate and may include automated exposure control or mA/KV adjustment according to patient size. FINDINGS: No pulmonary emboli are identified. Right-sided emboli seen in January have resolved. The aorta as imaged shows no acute or suspicious finding. No pericardial thickening or effusion. Hear t size does appear increased slightly from comparison. Patchy opacification is present in the posterior right upper lobe abutting the fissure. Overall inter stitial markings are mildly prominent. No pleural effusion or pleural thickening. No mediastinal or hilar suspicious masses. No chest wall mass or rib lesion. Lymphadenopathy pattern in each axilla has changed. Lymph nodes show an increase in size and number s dipti the prior January study. In the right axilla (image 13/82) an 18 x 17 millimeter lymph node is pre sent previously measuring 15 x 16 mm. In the lower left axilla (image 20/82) lymph node previously me asured 17 x 25 mm. Lymph node now measures 19 by 26 mm. A more inferior axillary lymph node on the le ft (image 24/82) measures 16 x 25 mm previously measuring 13 x 22 mm. The other lymph nodes in the ax illa show a similar enlargement. There appear to be enlarged lymph nodes along the gastrohepatic ligament though these are not adequat macario visualized on this study. IMPRESSION: No pulmonary emboli seen. Embolic disease seen in January has resolved. Bilateral axillary lymphadenopathy showing an increase in size and number since the January examination .Findings are concerning for a more aggressive transformation of the patient's CLL.
[2018-03-21 22:22] LABS: Platelet Estimate DECR; Smudge Cells PRESENT
[2018-03-21 22:23] LABS: Anisocytosis 2+; Blood Morphology Comment NOTED (NOT SEEN); Macrocytosis 1+; Poikilocytosis 1+
[2018-03-22 04:36] LABS: Absolute Lymphocytes (CBC) 22.3 K/uL (0.7-4.9); Absolute Monocytes 0.1 K/uL (0.1-1.3); Absolute Neutrophil 0.8 K/uL (1.8-8.0); Eosinophils % 0.6 % (0-4.4); Hematocrit 24.1 % (36.0-45.0); Lymphocytes % 95.6 % (15.3-44.8); MCH 33.6 pg (27.0-35.0); MCV 98.3 fL (80-100); MPV 10.1 fL (7.6-11.3); Monocytes % 0.5 % (3.3-12.3); RBC Red Blood Cell Count 2.45 M/uL (3.86-4.86)
[2018-03-22 05:42] LABS: BUN Blood Urea Nitrogen 10 mg/dL (6-20); Bicarbonate 25 mEq/L (21-31); Glucose Level 122 mg/dL (65-120); Potassium 3.8 mEq/L (3.6-5.0); Sodium Level 141 mEq/L (135-145)
[2018-03-22] MEDS: predniSONE 20 MG TAB PO SCH ×2 (12:35→13:14)
[2018-03-22] MEDS: ACETAMINOPHEN 500 MG TAB PO PRN (16:15)
--- NOTE | 2018-03-22 16:26 | PN ---
Date of Progress Note: 03/22/2018 Subjective: The patient is seen and examined. Chart reviewed and case discussed with RN. The patient still states that she feels weak, not able to really get up without feeling wobbly on her feet. Review of Systems: Negative except as above. Medications: Reviewed. Physical Examination: Vital Signs: Temperature 97, heart rate 71, blood pressure 132/55, respirations 18, O2 96% on room air. General: Awake, alert, oriented x3, in no distress. Morbidly obese female, elderly ill-appearing. CV: S1, S2. No murmurs. Regular rate and rhythm. Peripheral pulses present. Respiratory: Diminished breath sounds. No wheezing or rhonchi. Gastrointestinal: Abdomen is soft, nontender, nondistended. Obese. Positive bowel sounds. Extremities: No clubbing, cyanosis, edema. Neuro: Nonfocal. Laboratory Data: Sodium 141, potassium 3.8, chloride 107, CO2 25, BUN 10, creatinine 0.58, glucose 122, calcium 8.7. WBC 23.4, H and H 8.2 and 24.1, platelets 33, neutrophils 3.3. Assessment And Plan: A 68-year-old female with: 1. Anemia, likely secondary to chemotherapy treatment. The patient received 2 units of PRBCs. We will monitor H and H. 2. Chest pain, atypical. CT angio negative for pulmonary embolism. Likely related to anemia. 3. Chronic lymphocytic leukemia. WBC count around her baseline. CT scan of the chest showed worsening lymphadenopathy bilaterally, which is concerning for more aggressive lymphoma/chronic lymphocytic leukemia. 4. Morbid obesity. 5. Thrombocytopenia. We will monitor. Creatinine is less than 20. No active bleeding in the past. 6. Gastrointestinal and deep venous thrombosis prophylaxis with PPI and SCDs. No chemical anticoagulation due to low platelets. We will contact Dr. Snider, obtain Physical Therapy consultation. /ERNIE Voice ID: [id number] Report ID: [id number] MTDD
[2018-03-23 04:45] LABS: Absolute Lymphocytes (CBC) 16.6 K/uL (0.7-4.9); Absolute Monocytes 0.1 K/uL (0.1-1.3); Absolute Neutrophil 0.8 K/uL (1.8-8.0); Eosinophils % 0.7 % (0-4.4); Hematocrit 23.2 % (36.0-45.0); Lymphocytes % 94.2 % (15.3-44.8); MCH 33.6 pg (27.0-35.0); MCV 97.5 fL (80-100); MPV 10.3 fL (7.6-11.3); Monocytes % 0.6 % (3.3-12.3); RBC Red Blood Cell Count 2.38 M/uL (3.86-4.86)
[2018-03-23] MEDS: ACETAMINOPHEN 500 MG TAB PO PRN (05:12)
[2018-03-23 05:31] LABS: Albumin 3.1 g/dL (3.2-5.5); Bilirubin Total 0.3 mg/dL (0.3-1.2); Protein, Total 5.6 g/dL (6.0-8.3)
--- NOTE | 2018-03-23 12:29 | P.PN ---
Subjective Date of Service: 03/23/18 Primary Care Provider: changing from hCirag to Dr. Bush Chief Complaint: anemia, LOPEZ, chest pain Review of Systems General: Chills, Weakness, Malaise, Other (improving but pt really resists any treatment) Eyes: Unremarkable ENT: Unremarkable Respiratory: Unremarkable Cardiovascular: Unremarkable Gastrointestinal: Unremarkable Genitourinary: Unremarkable Musculoskeletal: Unremarkable Integumentary: Unremarkable Neurological: Unremarkable Physical Examination - Vital Signs Temperature: 97.5 F Blood Pressure: 123/58 Pulse: 65 Respirations: 16 Pulse Ox (%): 94 - Physical Exam General: Alert, Oriented x3, Other (resistant to treatment options) Neck: 2+ carotid pulse no bruit Respiratory: Clear to auscultation bilaterally, Normal air movement Cardiovascular: No edema Capillary refill: <2 Seconds Gastrointestinal: Normal bowel sounds Musculoskeletal: No clubbing, No swelling Integumentary: No rashes, No breakdown, Other (ecchymosis to previous puncture wounds/iv attempts/blood draws) Neurological: Normal speech, Normal tone External genitalia: Deferred Rectal: Deferred Assessment & Plan - Problems (Diagnosis) (1) Anemia Onset Date: 03/22/18 Current Visit: Yes Status: Acute Plan: Transfuse 2 units PRBC Qualifiers: Bone marrow failure anemia type: other bone marrow failure (2) Chest pain Onset Date: 03/22/18 Current Visit: Yes Status: Acute Plan: Assess for PE. Treat anemia, continue treatment for anemia Discharge Plan: Home Plan to discharge in: 24 Hours - Code Status/Comfort Care Code Status Assessed: Yes (pt resists treatment but is not currently DNR)
[2018-03-23] MEDS ORDERED: HYDROCORTISONE SUC 100 MG INJ IV ONE (15:00)
[2018-03-23 21:53] LABS: Urine Appearance CLEAR; Urine Bilirubin NEGATIVE (NEG); Urine Blood NEGATIVE (NEG); Urine Color YELLOW; Urine Glucose NEGATIVE (NEG); Urine Protein NEGATIVE (NEG); Urine Specific Gravity 1.015 (1.005-1.030); Urine Urobilinogen 0.2 mg/dL (0.2-1.0)
[2018-03-23 22:06] LABS: Urine Microscopic Reflex NO UMIC
[2018-03-24 05:26] LABS: Absolute Lymphocytes (CBC) 17.2 K/uL (0.7-4.9); Absolute Monocytes 0.1 K/uL (0.1-1.3); Absolute Neutrophil 0.9 K/uL (1.8-8.0); Basophils % 0.1 % (0-1.3); Eosinophils % 0.5 % (0-4.4); Hematocrit 23.4 % (36.0-45.0); MCH 34.1 pg (27.0-35.0); MCV 98.5 fL (80-100); MPV 11.1 fL (7.6-11.3); Monocytes % 0.6 % (3.3-12.3); RBC Red Blood Cell Count 2.37 M/uL (3.86-4.86)
[2018-03-24 05:32] LABS: Lymphocytes % 93.7 % (15.3-44.8)
[2018-03-24 05:36] LABS: Protime INR 0.94
[2018-03-24 05:39] LABS: BUN Blood Urea Nitrogen 14 mg/dL (6-20); Bicarbonate 26 mEq/L (21-31); Glucose Level 119 mg/dL (65-120); HDL Cholesterol 19 mg/dL (29-89); LDL Cholesterol, Calculated 63 (<130); Potassium 3.1 mEq/L (3.6-5.0); Sodium Level 140 mEq/L (135-145)
[2018-03-24] MEDS ORDERED: CEFTRIAXONE/SWI 1gm 1 GM/10 ML SYR IVP SCH (09:00)
[2018-03-24 10:17] VITALS: BP 127/67; TEMP 98.3
[2018-03-24] MEDS ORDERED: POTASSIUM CL SA 10 MEQ TAB PO ONE (10:49)
--- NOTE | 2018-03-24 10:50 | P.DS ---
Admission Date: 03/21/18 Discharge Date: 03/24/18 Primary Care Provider: changing from Chirag to Dr. Bush Disposition: ROUTINE DISCHARGE Discharge Condition: FAIR Reason for Admission: anemia, LOPEZ, chest pain Brief History of Present Illness: Patient is 68 years of age recent diagnosis of CLL was admitted with weakness and anemia patient was transfused with 2 units of packed red blood cells and also does slight fever Hospital Course: Patient was transfused unremarkable course of stay apart from a slight fever as discharged home on levofloxacin I have ordered blood cultures urine cultures and analysis patient has a mild pancytopenia follow up with our oncologist At the time of discharge patient was doing well vitals chest clear cardiovascular system on cells normal abdomen soft labs reviewed mildly hypokalemic was given 1 dose of potassium r blood cultures and urinalysis ordered prior to discharge Vital Signs/Physical Exam: Temp Pulse Resp BP Pulse Ox 98.3 F 78 18 127/67 97 03/24/18 08:00 03/24/18 08:00 03/24/18 08:00 03/24/18 08:00 03/24/18 08:00 Laboratory Data at Discharge: WBC 18.3 K/uL (4.3-10.9) H 03/24/18 04:24 Hgb 8.1 g/dL (12.0-15.0) L 03/24/18 04:24 Hct 23.4 % (36.0-45.0) L 03/24/18 04:24 Plt Count 36 K/uL (152-406) L* 03/24/18 04:24 PT 11.1 SECONDS (9.5-12.5) 03/24/18 04:24 INR 0.94 03/24/18 04:24 APTT 26.1 SECONDS (24.3-36.9) 03/24/18 04:24 Sodium 140 mEq/L (135-145) 03/24/18 04:24 Potassium 3.1 mEq/L (3.6-5.0) L 03/24/18 04:24 BUN 14 mg/dL (6-20) 03/24/18 04:24 Creatinine 0.64 mg/dL (0.44-1.00) 03/24/18 04:24 Glucose 119 mg/dL (65-120) 03/24/18 04:24 Total Bilirubin 0.3 mg/dL (0.3-1.2) 03/23/18 04:29 AST 15 IU/L (10-42) 03/23/18 04:29 ALT 13 IU/L (10-60) 03/23/18 04:29 Alkaline Phosphatase 58 IU/L (42-121) 03/23/18 04:29 Triglycerides 313 mg/dL (35-160) H 03/24/18 04:24 Cholesterol 145 mg/dL (<200) 03/24/18 04:24 HDL Cholesterol 19 mg/dL (29-89) L 03/24/18 04:24 Cholesterol/HDL Ratio 7.63 03/24/18 04:24 Home Medications: levoFLOXacin [Levaquin] 500 mg PO DAILY #7 tab 03/24/18 New Medications: levoFLOXacin [Levaquin] 500 mg PO DAILY #7 tab Patient Discharge Instructions: Follow up with oncologist Diet: Regular Activity: Ad jamaal
[2018-03-24 12:10] VITALS: O2SAT 95
== END 2018-03-24 13:50 | disposition home or self-care (01) ==
LOC: ER 14:00 → ERHOLD 15:59 → 2ND 17:49
PROVIDERS: ADMIT Family Medicine; ATTEND Internal Medicine Sleep Medicine
PROC: 30233N1 Transfusion of Nonautologous Red Blood Cells into Peripheral Vein, Percutaneous Approach (ICD-10-PCS; principal; 2018-03-21)
DX: D64.9 Anemia, unspecified (principal); E87.6 Hypokalemia; C91.10 Chronic lymphocytic leukemia of B-cell type not having achieved remission; Z88.0 Allergy status to penicillin; Z86.711 Personal history of pulmonary embolism; R07.89 Other chest pain; D69.6 Thrombocytopenia, unspecified; E66.01 Morbid (severe) obesity due to excess calories; Z68.39 Body mass index [BMI] 39.0-39.9, adult
CPT/HCPCS: 36415 ×3; 36430; 71275; 80048 ×3; 80053 ×2; 80061; 81003; 82232; 82607; 82728; 82746; 82784; 83540; 83615; 84466; 84484; 84550; 85025 ×4; 85610 ×2; 85730; 86850; 86900; 86901; 97116 ×2; 97163; 97530; 99285; J1720; P9016 ×2; Q9967; J7512

== ENCOUNTER 2018-03-25 20:37 | Observation (INO) | payer OTHER ==
[2018-03-25] MEDS ORDERED: IBUPROFEN 400 MG TAB ONE (21:17)
[2018-03-25] MEDS ORDERED: IBUPROFEN 200 MG TAB PO ONE ×2 (21:17→21:56)
[2018-03-25] MEDS ORDERED: NA CHLORIDE 0.9% 3,000 ML ONE (21:56)
[2018-03-25 22:35] LABS: Absolute Lymphocytes (CBC) 13.8 K/uL (0.7-4.9); Absolute Monocytes 0.1 K/uL (0.1-1.3); Absolute Neutrophil 1.2 K/uL (1.8-8.0); Basophils % 0.1 % (0-1.3); Eosinophils % 0.5 % (0-4.4); Hematocrit 22.7 % (36.0-45.0); Lymphocytes % 90.5 % (15.3-44.8); MCV 98.8 fL (80-100); MPV 10.5 fL (7.6-11.3); Monocytes % 0.7 % (3.3-12.3)
[2018-03-25 22:40] LABS: Protime INR 1.13
[2018-03-25 22:55] LABS: Anisocytosis 1+; Blood Morphology Comment NOTED (NOT SEEN); Platelet Estimate DECR; Smudge Cells PRESENT
[2018-03-25 23:06] LABS: Albumin 3.3 g/dL (3.2-5.5); Bilirubin Direct 0.1 mg/dL (0-0.2); Bilirubin Total 0.5 mg/dL (0.3-1.2); CKMB Creatine Kinase MB 0.4 ng/ml (0.3-4.0); Protein, Total 6.4 g/dL (6.0-8.3)
[2018-03-25 23:52] LABS: Urine Blood NEGATIVE (NEG); Urine Glucose NEGATIVE (NEG); Urine Protein NEGATIVE (NEG); Urine Specific Gravity 1.005 (1.005-1.030); Urine pH 6.5 (5.0-7.0)
[2018-03-26 00:01] LABS: Urine Bacteria <20 /HPF (<20); Urine RBC NONE SEEN /HPF (NONE SEEN)
[2018-03-26 00:02] LABS: Urine Culture Reflex Order NOT NEEDED
--- NOTE | 2018-03-26 01:42 | ER ---
Nurse's Notes [facility] Name: Lisy Betts Age: 68 yrs Sex: Female : 1950 Arrival Date: 03/25/2018 Time: 20:38 Bed 26 Private MD: Aleksey Bush E Diagnosis: Pneumonia due to other specified bacteria Presentation: 03/25 21:03 Presenting complaint: Patient states: fever, congestion and coughing up blood started tl3 yesterday, was just discharged from hospital yesterday was being treated for anemia had blood transfused. Transition of care: patient was not received from another setting of care. Onset of symptoms was March 24, 2018 at 15:00. Risk Assessment: Do you want to hurt yourself or someone else? Patient reports no desire to harm self or others. Initial Sepsis Screen: Does the patient meet any 2 criteria? No. Patient's initial sepsis screen is negative. Does the patient have a suspected source of infection? No. Patient's initial sepsis screen is negative. Care prior to arrival: None. 21:03 Method Of Arrival: Wheelchair tl3 21:03 Acuity: ARNOLD 3 tl3 Triage Assessment: 21:07 General: Appears distressed, uncomfortable, obese, well groomed, well developed, well tl3 nourished, Behavior is calm, cooperative, appropriate for age. Pain: Complains of pain in chest, headache. Historical: - Allergies: 21:07 PENICILLINS; tl3 - Home Meds: 21:07 levofloxacin 250 mg/10 mL Oral soln [Active]; tl3 - PMHx: 21:07 CLL; Pulmonary Embolism; UTI; tl3 - PSHx: 21:07 None; tl3 - Immunization history:: Adult Immunizations up to date. - Social history:: Smoking status: Patient/guardian denies using tobacco, never smoked. - Ebola Screening: : Patient denies travel to an Ebola-affected area in the 21 days before illness onset. Screenin/18 02:26 Abuse screen: Denies threats or abuse. Nutritional screening: No deficits noted. mb3 Tuberculosis screening: Never had TB. Possible symptoms: recent fever, cough for more than 2 weeks, recent bloody sputum, Risk factors: immunocompromised, Intervention for positive screen: ED Physician notified. Fall Risk No fall in past 12 months (0 pts). Secondary diagnosis (15 points) IV access (20 points). Ambulatory Aid- None/Bed Rest/Nurse Assist (0 pts). Gait- Normal/Bed Rest/Wheelchair (0 pts) Mental Status- Oriented to own ability (0 pts). Total Rodríguez Fall Scale indicates Low Risk Score (25-44 pts). Fall prevention measures have been instituted. Side Rails Up X 2 Placed close to Nursing Station Frequent Obs/Assesments occuring As available Patient and Family Educated on Fall Prevention Program and strategies. Assessment: 03/25 22:34 General: Appears uncomfortable, ill, obese, Behavior is calm, cooperative, appropriate mb3 for age. Pain: Denies pain. Neuro: No deficits noted. Level of Consciousness is awake, alert, obeys commands, Oriented to person, place, time, situation, Appropriate for age. Cardiovascular: No deficits noted. Heart tones S1 S2 present Capillary refill < 3 seconds Patient's skin is warm and dry. Respiratory: Airway is patent Respiratory effort is even, unlabored, Respiratory pattern is regular, symmetrical, Sputum is bloody Breath sounds are coarse bilaterally. GI: Abdomen is obese, Bowel sounds present X 4 quads. Abd is soft and non tender. : No signs and/or symptoms were reported regarding the genitourinary system. 03/26 00:42 Reassessment: Patient and/or family updated on plan of care and expected duration. Pain mb3 level reassessed. Patient is alert, oriented x 3, equal unlabored respirations, skin warm/dry/pink. 01:53 Reassessment: Patient appears in no apparent distress at this time. Patient and/or mb3 family updated on plan of care and expected duration. Pain level reassessed. Patient is alert, oriented x 3, equal unlabored respirations, skin warm/dry/pink. Patient states feeling better. Patient states symptoms have improved. Vital Signs: 03/25 21:07 BP 146 / 77; Pulse 96; Resp 18; Temp 102.4; Pulse Ox 97% ; Weight 98.88 kg; Height 5 tl3 ft. 3 in. (160.02 cm); 03/26 00:41 BP 116 / 50; Pulse 69; Resp 18; Pulse Ox 96% on R/A; mb3 01:37 BP 129 / 74; Pulse 66; Resp 16; Pulse Ox 99% on R/A; mb3 02:24 BP 134 / 67; Pulse 79; Resp 20; Temp 99.2(O); Pulse Ox 96% on R/A; mb3 03/25 21:07 Body Mass Index 38.62 (98.88 kg, 160.02 cm) tl3 ED Course: 03/25 20:38 Patient arrived in ED. es 20:39 Aleksey Bush MD is Private Physician. es 21:06 Triage completed. tl3 21:07 Arm band placed on right wrist. tl3 21:15 Javed Benedict PA is PHCP. cp 21:15 Tomas Flores MD is Attending Physician. cp 21:35 Konrad Rao, HARLEY is Primary Nurse. mb3 22:00 Patient has correct armband on for positive identification. Placed in gown. Bed in low mb3 position. Call light in reach. Side rails up X 1. boring and filling machine operator on. Pulse ox on. NIBP on. 22:05 Inserted saline lock: 22 gauge in right antecubital area, using aseptic technique. mb3 Blood collected. 22:09 Chest Single View XRAY In Process Unspecified. EDMS 23:[address] via wheelchair. kw1 03/26 00:10 CT completed. Patient tolerated procedure well. Patient moved back from CT. kw1 00:15 CT Chest For PE Angio In Process Unspecified. EDMS 01:40 Anson Li MD is Hospitalizing Provider. cp 02:30 No provider procedures requiring assistance completed. Patient transferred, IV remains mb3 in place. Administered Medications: 03/25 21:20 Drug: Ibuprofen 600 mg Route: PO; tl3 03/26 02:44 Follow up: Response: No adverse reaction mb3 03/25 22:24 Drug: NS 0.9% (30 ml/kg) 30 ml/kg Route: IV; Rate: bolus; Site: right antecubital; mb3 03/26 02:43 Follow up: Response: No adverse reaction; IV Status: Completed infusion; IV Intake: mb3 3000ml 02:14 Drug: vancoMYCIN 1 grams Route: IVPB; Infused Over: 2 hrs; Site: right antecubital; mb3 Intake: 02:43 IV: 3000ml; Total: 3000ml. mb3 Outcome: 01:41 Decision to Hospitalize by Provider. cp 02:49 Admitted to Tele accompanied by tech, via wheelchair, room 210, with chart, Report mb3 called to Fiona Rubin RN 02:49 Condition: stable 02:49 Instructed on the need for admit. 02:55 Patient left the ED. mb3 Signatures: Dispatcher [employer] Ofe Hernandez Corey, PA PA cp Jesica Omalley kw1 Karen Trejo, RN RN tl3 Konrad Rao RN RN mb3 Corrections: (The following items were deleted from the chart) 02:31 02:24 BP 134 / 67; Pulse 79bpm; Resp 20bpm; Pulse Ox 96% RA; mb3 mb3
--- NOTE | 2018-03-26 01:42 | EDPHYS ---
Physician Documentation [facility] Name: Lisy Betts Age: 68 yrs Sex: Female : 1950 Arrival Date: 03/25/2018 Time: 20:38 Bed 26 Private MD: Aleksey Bush E ED Physician Tomas Flores HPI: 03/25 21:38 This 68 yrs old Female presents to ER via Wheelchair with complaints of cp Cough, Fever, Chest Congestion. 21:38 The patient or guardian reports cough, that is constant, with productive sputum, that cp is yellow, hemoptysis. Onset: The symptoms/episode began/occurred yesterday. Associated signs and symptoms: Pertinent positives: fever, Pertinent negatives: chest pain, diarrhea, sore throat, vomiting. Historical: - Allergies: 21:07 PENICILLINS; tl3 - Home Meds: 21:07 levofloxacin 250 mg/10 mL Oral soln [Active]; tl3 - PMHx: 21:07 CLL; Pulmonary Embolism; UTI; tl3 - PSHx: 21:07 None; tl3 - Immunization history:: Adult Immunizations up to date. - Social history:: Smoking status: Patient/guardian denies using tobacco, never smoked. - Ebola Screening: : Patient denies travel to an Ebola-affected area in the 21 days before illness onset. ROS: 21:45 Constitutional: Positive for fever, Negative for body aches, chills, poor PO intake. cp 21:45 Eyes: Negative for injury, pain, redness, and discharge. cp 21:45 ENT: Negative for drainage from ear(s), ear pain, sore throat, difficulty swallowing, difficulty handling secretions. 21:45 Cardiovascular: Negative for chest pain, edema, palpitations. 21:45 Respiratory: Positive for cough, with yellow sputum, hemoptysis, Negative for wheezing. 21:45 Abdomen/GI: Negative for abdominal pain, nausea, vomiting, and diarrhea, constipation, anorexia, dysphagia, black/tarry stool, rectal bleeding. 21:45 Back: Negative for pain at rest, pain with movement, radiated pain. 21:45 : Negative for urinary symptoms. 21:45 Skin: Negative for cellulitis, rash. 21:45 Neuro: Negative for altered mental status, dizziness, headache, syncope, near syncope, weakness. 21:45 All other systems are negative. Exam: 21:48 Constitutional: The patient appears in no acute distress, alert, awake, cp non-diaphoretic, non-toxic, well developed, well nourished. 21:48 Head/Face: Normocephalic, atraumatic. Eyes: Pupils equal round and reactive to light, cp extra-ocular motions intact. Lids and lashes normal. Conjunctiva and sclera are non-icteric and not injected. Cornea within normal limits. Periorbital areas with no swelling, redness, or edema. ENT: Nares patent. No nasal discharge, no septal abnormalities noted. Tympanic membranes are normal and external auditory canals are clear. Oropharynx with no redness, swelling, or masses, exudates, or evidence of obstruction, uvula midline. Mucous membranes moist. Neck: Trachea midline, no thyromegaly or masses palpated, and no cervical lymphadenopathy. Supple, full range of motion without nuchal rigidity, or vertebral point tenderness. No Meningismus. Chest/axilla: Normal chest wall appearance and motion. Nontender with no deformity. No lesions are appreciated. 21:48 Cardiovascular: Rate: normal, Rhythm: regular, Pulses: Pulses are 2+ in right radial artery and left radial artery. Edema: is not appreciated, JVD: is not appreciated. 21:48 Respiratory: the patient does not display signs of respiratory distress, Respirations: normal, no use of accessory muscles, no retractions, no splinting, no tachypnea, labored breathing, is not present, Breath sounds: rhonchi, that are mild, are heard diffusely, stridor, is not appreciated, wheezing: is not appreciated. 21:48 Abdomen/GI: Inspection: abdomen appears normal, Bowel sounds: active, all quadrants, Palpation: abdomen is soft and non-tender, in all quadrants, rebound tenderness, is not appreciated, voluntary guarding, is not appreciated, involuntary guarding, is not appreciated. 21:48 Back: pain, is absent, ROM is normal, CVA tenderness, is absent. 21:48 Skin: cellulitis, is not appreciated, no rash present. 21:48 Neuro: Orientation: to person, place \T\ time. Mentation: lucid, able to follow commands, Cerebellar function: is grossly normal, Motor: moves all fours, strength is normal, Sensation: no obvious gross deficits. 23:35 ECG was reviewed by the Attending Physician. Vital Signs: 21:07 BP 146 / 77; Pulse 96; Resp 18; Temp 102.4; Pulse Ox 97% ; Weight 98.88 kg; Height 5 tl3 ft. 3 in. (160.02 cm); 03/26 00:41 BP 116 / 50; Pulse 69; Resp 18; Pulse Ox 96% on R/A; mb3 01:37 BP 129 / 74; Pulse 66; Resp 16; Pulse Ox 99% on R/A; mb3 02:24 BP 134 / 67; Pulse 79; Resp 20; Temp 99.2(O); Pulse Ox 96% on R/A; mb3 03/25 21:07 Body Mass Index 38.62 (98.88 kg, 160.02 cm) tl3 MDM: 03/25 21:15 Patient medically screened. 23:40 Physician consultation: Anson Li MD was contacted at 23:41, regarding admission, cp to the telemetry unit. patient's condition. 03/26 01:30 Data reviewed: vital signs, nurses notes, lab test result(s), EKG, radiologic studies, cp CT scan, plain films. 01:30 The patient was not given aspirin in the Emergency Department. 03/25 21:32 Order name: Sputum Culture 03/25 21:32 Order name: Urine Culture 03/25 21:32 Order name: Urine Microscopic Only; Complete Time: 00:19 03/26 00:19 Interpretation: Reviewed. 03/25 21:32 Order name: Amylase, Serum; Complete Time: 23:19 03/25 23:19 Interpretation: JUAN 17; Reviewed. 03/25 21:32 Order name: Basic Metabolic Panel; Complete Time: 23:19 03/25 23:19 Interpretation: Normal except: GLUC 121; GFR 77. 03/25 21:32 Order name: Blood Culture Adult (2) 03/25 21:32 Order name: BNP; Complete Time: 22:58 03/25 21:32 Order name: CBC with Diff; Complete Time: 22:57 03/25 23:02 Interpretation: Normal except: WBC 15.2; RBC 2.30; HGB 7.8; HCT 22.7; RDW 22.4; JACQUIE% cp 8.2; LYM% 90.5; MN% 0.7; NEUT A 1.2; LYMA 13.8. 03/25 21:32 Order name: Ckmb; Complete Time: 23:19 cp 03/25 21:32 Order name: CPK; Complete Time: 23:19 cp 03/25 21:32 Order name: Lactate; Complete Time: 22:57 cp /18 01:05 Interpretation: Reviewed. 03/25 21:32 Order name: LFT's; Complete Time: 23:19 cp 03/25 21:32 Order name: Lipase; Complete Time: 23:19 cp 03/25 22:58 Interpretation: LIP 20; Reviewed. cp 03/25 21:32 Order name: Procalcitonin; Complete Time: 23:19 cp 03/25 23:19 Interpretation: Procalcitonin 0.05; Reviewed. cp 03/25 21:32 Order name: Protime (+inr); Complete Time: 22:57 cp 03/25 23:20 Interpretation: PT 13.4; Reviewed. 03/25 21:32 Order name: Ptt, Activated; Complete Time: 22:57 cp 03/25 21:32 Order name: Troponin (emerg Dept Use Only); Complete Time: 22:57 cp 03/26 01:05 Interpretation: Abnormal: TROPED < 0.03. cp 03/25 21:32 Order name: Chest Single View XRAY 03/25 21:32 Order name: Accucheck; Complete Time: 22:25 cp 03/25 21:32 Order name: Cardiac monitoring; Complete Time: 22:25 cp 03/25 21:32 Order name: EKG - Nurse/Tech; Complete Time: 02:43 cp 03/25 21:32 Order name: IV Saline Lock - Large Bore; Complete Time: 22:25 cp 03/25 21:32 Order name: Labs collected and sent; Complete Time: 22:25 cp 03/25 22:54 Order name: Manual Differential; Complete Time: 22:57 EDMS 03/25 23:20 Interpretation: Normal except: SEGS 8; LYM 88. cp 03/25 23:02 Order name: CT Chest For PE Angio 03/25 23:49 Order name: Urine Dipstick--Ancillary (enter results); Complete Time: 00:19 eb 03/25 21:32 Order name: O2 Per Protocol; Complete Time: 22:25 cp 03/25 21:32 Order name: O2 Sat Monitoring; Complete Time: 02:44 cp 03/25 21:32 Order name: Urine Dipstick-Ancillary (obtain specimen); Complete Time: 02:44 cp 03/25 21:32 Order name: Cath cp EC/17 23:35 Rate is 69 beats/min. Rhythm is regular. WA interval is normal. QRS interval is normal. cp QT interval is normal. No ST changes noted. Interpreted by me. Reviewed by me. Administered Medications: 21:20 Drug: Ibuprofen 600 mg Route: PO; tl3 03/26 02:44 Follow up: Response: No adverse reaction 3 03/25 22:24 Drug: NS 0.9% (30 ml/kg) 30 ml/kg Route: IV; Rate: bolus; Site: right antecubital; mb3 03/26 02:43 Follow up: Response: No adverse reaction; IV Status: Completed infusion; IV Intake: mb3 3000ml 02:14 Drug: vancoMYCIN 1 grams Route: IVPB; Infused Over: 2 hrs; Site: right antecubital; mb3 Disposition: 03:36 Co-signature as Attending Physician, Tomas Flores MD. pk Disposition: 03/26/18 01:41 Hospitalization ordered by Anson Li for Inpatient Admission. Preliminary diagnosis is Pneumonia due to other specified bacteria. - Bed requested for Telemetry/MedSurg (Inpatient). - Status is Inpatient Admission. mb3 - Condition is Stable. - Problem is new. - Symptoms have improved. UTI on Admission? No Signatures: Dispatcher [employer] EDMS Jesica Joyce RN RN kl Lam, Pin, MD MD pkl Javed Benedict PA PA cp Lowrey, Tammy, RN RN tl3 Delaney Fernandez Mark RN RN mb3 Corrections: (The following items were deleted from the chart) 03/25 23:02 22:57 Normal except: WBC 15.2; RBC 2.30; HGB 7.8; HCT 22.7; RDW 22.4; JACQUIE% 8.2; LYM% cp 90.5; MN% 0.7; NEUT A 1.2. cp 23:19 22:58 Normal except: GLUC 121. cp cp 03/26 01:48 01:41 Hospitalization Ordered by Anson Li MD for Inpatient Admission. Preliminary eb diagnosis is Pneumonia due to other specified bacteria. Bed requested for Telemetry/MedSurg (Inpatient). Status is Inpatient Admission. Condition is Stable. Problem is new. Symptoms have improved. UTI on Admission? No. cp 02:24 01:48 03/26/2018 01:41 Hospitalization Ordered by Anson Li MD for Inpatient kl Admission. Preliminary diagnosis is Pneumonia due to other specified bacteria. Bed requested for Telemetry/MedSurg (Inpatient). Status is Inpatient Admission. Condition is Stable. Problem is new. Symptoms have improved. UTI on Admission? No. eb 02:55 02:24 03/26/2018 01:41 Hospitalization Ordered by Anson Li MD for Inpatient mb3 Admission. Preliminary diagnosis is Pneumonia due to other specified bacteria. Bed requested for Telemetry/MedSurg (Inpatient). Status is Inpatient Admission. Condition is Stable. Problem is new. Symptoms have improved. UTI on Admission? No. kl
--- NOTE | 2018-03-26 01:59 | P.HP ---
Certification for Inpatient Patient admitted to: Inpatient With expected LOS: >2 Midnights Practitioner: I am a practitioner with admitting privileges, knowledge of patient current condition, hospital course, and medical plan of care. Services: Services provided to patient in accordance with Admission requirements found in Title 42 Section 412.3 of the Code of Federal Regulations Patient History Date of Service: 03/26/18 Reason for admission: pneumonia History of Present Illness: Ms Cedeno is a 68 years old woman with history of PE, CLL, on plan to start chemotherapy this upcoming week, she was recently admitted to the hospital due to anemia, requiring blood transfusion, she was discharged home yesterday on oral levaquin for early pneumonia. The patient states that she felt weak and had fever 100.6 when got home yesterday. She took ibuprofen to decreased the fever. This morning she was still febrile, and start coughing blood. Her temp at home today was 102.0F. Lab work shows 15.2K (decreasing compared with previous results), CTA shows no PE but bilateral nodular airspace opacities consistent with pneumonia. Temp in ED 102.4F. 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 moist/pink, EOMI, Sclerae nonicteric Neck: Supple, 2+ carotid pulse no bruit, No LAD, Without JVD or thyroid abnormality Respiratory: Normal air movement, Crackles/rales (scattered bibasilar crackles) , Expiratory wheezes Cardiovascular: Regular rate/rhythm, Normal S1 S2 Gastrointestinal: Normal bowel sounds, No tenderness Musculoskeletal: No tenderness Integumentary: No rashes Neurological: Normal speech, Normal strength at 5/5 x4 extr, Normal tone, Normal affect Lymphatics: No axilla or inguinal lymphadenopathy - Studies Laboratory Data (last 24 hrs) 03/25/18 22:20: PT 13.4 H, INR 1.13, APTT 27.6 03/25/18 22:20: WBC 15.2 H D, Hgb 7.8 L*, Hct 22.7 L, Plt Count 44 L* D 03/25/18 22:20: B-Natriuretic Peptide 92 03/25/18 22:20: Sodium 137, Potassium 4.0, BUN 12, Creatinine 0.75, Glucose 121 H, Total Bilirubin 0.5, AST 16, ALT 15, Alkaline Phosphatase 70, Amylase 17 L, Lipase 20 L Assessment and Plan - Problems (Diagnosis) (1) Pneumonia Current Visit: Yes Status: Acute Qualifiers: Pneumonia type: due to unspecified organism Laterality: bilateral Lung location: unspecified part of lung Qualified Code(s): J18.9 - Pneumonia, unspecified organism (2) History of pulmonary embolism Current Visit: Yes Status: Acute (3) Anemia Onset Date: 03/22/18 Current Visit: No Status: Acute Qualifiers: Bone marrow failure anemia type: other bone marrow failure (4) CLL (chronic lymphocytic leukemia) Onset Date: 01/23/18 Current Visit: No Status: Chronic - Plan The patient will be admitted to the hospital due to bilateral pneumonia. Will order empiric treatment with IV Vancomycin and Aztreonam (penicillin allergy), continue IV fluids and breathing treatments. Consult home energy auditor. - Advance Directives Does patient have a Living Will: No Does patient have a Durable POA for Healthcare: No - Code Status/Comfort Care Code Status Assessed: Yes Code Status: Full Code
[2018-03-26] MEDS ORDERED: VANCOMYCIN 1 GM/250 ML BAG ONE (02:10)
[2018-03-26] MEDS: NA CHLORIDE 0.9% 1,000 ML IV SCH ×3 (02:46→21:06)
[2018-03-26] MEDS ORDERED: ACETAMINOPHEN 500 MG TAB PO PRN (02:46)
[2018-03-26] MEDS ORDERED: ONDANSETRON 4 MG/2 ML VIAL IV PRN (02:46)
[2018-03-26] MEDS ORDERED: IPRATROPIUM BROM 0.5MG/2.5ML NEB PRN (02:46)
[2018-03-26] MEDS ORDERED: ALBUTEROL 2.5 MG/3 ML NEB SOL NEB PRN (02:46)
[2018-03-26 03:12] VITALS: BMI 39.4
[2018-03-26 05:03] LABS: Absolute Lymphocytes (CBC) 11.9 K/uL (0.7-4.9); Absolute Monocytes 0.1 K/uL (0.1-1.3); Absolute Neutrophil 0.7 K/uL (1.8-8.0); Basophils % 0.1 % (0-1.3); Eosinophils % 0.5 % (0-4.4); Hematocrit 22.8 % (36.0-45.0); Lymphocytes % 93.3 % (15.3-44.8); MCH 33.8 pg (27.0-35.0); MCV 99.6 fL (80-100); Monocytes % 0.5 % (3.3-12.3); RBC Red Blood Cell Count 2.29 M/uL (3.86-4.86)
[2018-03-26 05:32] LABS: BUN Blood Urea Nitrogen 11 mg/dL (6-20); Bicarbonate 22 mEq/L (21-31); Glucose Level 131 mg/dL (65-120); Magnesium 2.1 mg/dL (1.8-2.5); Potassium 3.6 mEq/L (3.6-5.0); Sodium Level 142 mEq/L (135-145)
[2018-03-26] MEDS ORDERED: POTASSIUM 25 MEQ EFFERV TAB PO ONE (06:10)
--- NOTE | 2018-03-26 08:25 | RAD REPORT ---
EXAM DESCRIPTION: CT - Chest For Pe Angio - 03/26/2018 4:11 am CLINICAL HISTORY: Fever, congestion, hemoptysis, history of anemia, CLL and pulmonary embolism A preliminary written report was provided at the time of the study, and the report was reviewed prio r to final dictation. COMPARISON: Portable chest March 25, PE study March 21, CT chest January 2018 TECHNIQUE: Dynamically enhanced 3 mm thick images of the chest were obtained during administration o f approximately 150mL Isovue 370 IV contrast. Coronal and oblique reconstruction images were generate d and reviewed. Exam utilizes a protocol to evaluate the pulmonary arterial tree. All CT scans are performed using dose optimization technique as appropriate and may include automated exposure control or mA/KV adjustment according to patient size. FINDINGS: No pulmonary emboli are identified. The aorta as imaged shows no acute or suspicious finding. No pericardial thickening or effusion. Since the March 21 study patient has developed numerous small areas of airspace opacification in the l darius ghotra. Opacification is most notable in the posterior mid right upper lobe abutting the fissure. Additional airspace opacities are present throughout all lobes. Multifocal pneumonia is most likely. No cavitation. No pleural effusion or pleural thickening. A few small nonspecific mediastinal and hilar lymph nodes are present. No new or bulky lymphadenopath y. No chest wall mass. The numerous axillary, subpectoral and supraclavicular lymph nodes are again d emonstrated. These have not changed over the short interval since March 21 but remains significantly d ifferent from January. IMPRESSION: No pulmonary emboli identified. Multifocal pneumonia.No cavitation or other complicating factor. Re- demonstration of the abnormal axillary, supraclavicular and retropectoral lymphadenopathy pattern . Pattern is stable from the short interval March 21 study. There was a substantial progression of the adenopathy between the January examination and the March 21 study.
--- NOTE | 2018-03-26 08:52 | RAD REPORT ---
EXAM DESCRIPTION: RAD - Chest Single View - 03/25/2018 10:08 pm CLINICAL HISTORY: Fever, cough, hemoptysis COMPARISON: CT chest March 21, portable chest February 07 TECHNIQUE: AP portable chest image was obtained 2201 hours . FINDINGS: No large mass, consolidation or failure finding. Minimal lung parenchymal opacities are pr esent in the left suprahilar and right infrahilar region. These are minimal findings. Heart and vascu lature are normal. No measurable pleural effusion and no pneumothorax. No gross bony abnormality seen . No acute aortic findings suspected. IMPRESSION: Minimal airspace opacities are identified. This could be atelectasis or infiltrate. No failure or volume overload.
[2018-03-26] MEDS ORDERED: AZTREONAM 1 GM/VIAL IV SCH (09:00)
[2018-03-26] MEDS ORDERED: VANCOMYCIN 1 GM in NA CHLORIDE 0.9% 250 ML IVPB SCH (09:00)
--- NOTE | 2018-03-26 09:43 | EKG ---
Test Date: 2018-03-25 Test Time: 23:29:35 Dining Room Cashier: WENDY MEASUREMENT RESULTS: Intervals: Rate: 69 MI: 160 QRSD: 78 QT: 402 QTc: 430 [place]: P: 8 MI: 160 QRS: 46 T: 69 INTERPRETIVE STATEMENTS: Normal sinus rhythm Normal ECG Electronically Signed On 03-26-18 09:42:50 CDT by Stevan Olivia
[2018-03-26] MEDS: AZTREONAM 2 GM in NA CHLORIDE 0.9% 100 ML IV SCH ×2 (10:19→17:46)
[2018-03-26] MEDS: VANCOMYCIN 1.75 GM in NA CHLORIDE 0.9% 500 ML IVPB SCH (13:24)
[2018-03-26 23:00] VITALS: O2SAT 95
[2018-03-27] MEDS: AZTREONAM 2 GM in NA CHLORIDE 0.9% 100 ML IV SCH ×2 (00:25→08:33)
[2018-03-27 05:14] LABS: Absolute Lymphocytes (CBC) 11.4 K/uL (0.7-4.9); Absolute Monocytes 0.1 K/uL (0.1-1.3); Absolute Neutrophil 0.7 K/uL (1.8-8.0); Basophils % 0.1 % (0-1.3); Eosinophils % 1.1 % (0-4.4); Hematocrit 22.4 % (36.0-45.0); MCH 34.1 pg (27.0-35.0); MCV 99.4 fL (80-100); MPV 10.7 fL (7.6-11.3); Monocytes % 0.5 % (3.3-12.3); RBC Red Blood Cell Count 2.26 M/uL (3.86-4.86)
[2018-03-27 05:16] LABS: Lymphocytes % 92.8 % (15.3-44.8)
[2018-03-27 06:09] LABS: BUN Blood Urea Nitrogen 9 mg/dL (6-20); Bicarbonate 25 mEq/L (21-31); Folic Acid, (Folate) 17.4 ng/ml (>5.21); Glucose Level 118 mg/dL (65-120); Potassium 3.7 mEq/L (3.6-5.0); Sodium Level 143 mEq/L (135-145); Transferrin 187 mg/dL (192-382); Uric Acid 4.6 mg/dL (2.6-8.0)
[2018-03-27] MEDS: VANCOMYCIN 1.75 GM in NA CHLORIDE 0.9% 500 ML IVPB SCH (06:16)
[2018-03-27] MEDS: NA CHLORIDE 0.9% 1,000 ML IV SCH (08:31)
--- NOTE | 2018-03-27 08:43 | P.CNS ---
Date of Consult: 03/27/18 Reason for Consult: Fever possible pneumonia Chief Complaint: pneumonia History of Present Illness: Patient is 68 years of age was discharged recently with a possible infection readmitted again she has was running some high fever having some hemoptysis patient also experiencing more diarrhea and admitted again with bilateral infiltrates white count elevated patient Mg weepy history of pulmonary embolism and CLL Allergies ceftriaxone [From Rocephin] Allergy (Verified 03/26/18 03:04) Hives Penicillins Allergy (Verified 03/26/18 03:04) Hives prednisone Adverse Reaction (Verified 03/26/18 03:04) Shortness of breath Home Medications: NK [No Home Meds] 03/26/18 - Past Medical/Surgical History Diabetic: No -: Chronic Leukemia -: 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 -: PE -: cyst removed from left breast -: left ankle surgery -: Hysterectomy 2018 -: Abdominal hernia repair with mesh placement - Family History Mother Medical History: Heart disease, Other (see notes) Notes: [place], [place] Father Medical History: Cancer Notes: Pancreatic [place] - Social History Smoking Status: Never smoker Alcohol use: No CD- Drugs: No Caffeine use: Yes Place of Residence: Home Review of Systems 10-point ROS is otherwise unremarkable General: Weakness Respiratory: Cough, Hemoptysis Gastrointestinal: Diarrhea Physical Examination Temp Pulse Resp BP Pulse Ox 98.5 F 79 18 129/62 97 03/27/18 04:00 03/27/18 04:00 03/27/18 04:00 03/27/18 04:00 03/27/18 04:00 General: Alert, Oriented x3 HEENT: Atraumatic Neck: Supple Respiratory: Clear to auscultation bilaterally, Crackles/rales Cardiovascular: No edema, Regular rate/rhythm Gastrointestinal: Normal bowel sounds, Soft and benign Musculoskeletal: No clubbing, No swelling - Problems (1) Pneumonia Onset Date: 03/26/18 Current Visit: Yes Status: Acute Plan: Patient is 68 years of age with CLL admitted with fever bilateral pulmonary infiltrates right greater than the left was just recently discharged after having been transfused 2 units of packed red blood cells and was prescribed levofloxacin sputum cultures are pending patient is allergic to penicillin vital signs stable oxygenation satisfactory patient has a documented fever since arrival patient is also thrombocytopenic and anemic she also has mediastinal adenopathy labs reviewed sputum culture negative so far Qualifiers: Pneumonia type: due to unspecified organism Laterality: bilateral Lung location: unspecified part of lung Qualified Code(s): J18.9 - Pneumonia, unspecified organism
[2018-03-27] MEDS ORDERED: CEFEPIME/SWI 1gm 1 GM/10 ML SYR IV SCH (09:00)
[2018-03-27] MEDS ORDERED: POTASSIUM 25 MEQ EFFERV TAB PO SCH (09:00)
[2018-03-27] MEDS ORDERED: CEFEPIME 1 GM/VIAL IV SCH (09:00)
--- NOTE | 2018-03-27 13:33 | ECHO ---
HEIGHT: 5 ft 3 in WEIGHT: 222 lb 7 oz DATE OF STUDY: 03/27/[address]: Leo Nettles MD 2-DIMENSIONAL: YES M.MODE: YES DOPPLER: YES COLOR FLOW: YES TDS: NO PORTABLE: NO DEFINITY: NO BUBBLE STUDY: NO DIAGNOSIS: SHORTNESS OF BREATH CARDIAC HISTORY: CATHERIZATION: NO SURGERY: NO PROSTHETIC VALVE: NO PACEMAKER: NO MEASUREMENTS (cm) DIASTOLIC (NORMALS) SYSTOLIC (NORMALS) IVSd 1.2 (0.6-1.2) LA Diam (1.9-4.0) LVEF 79% LVIDd 3.5 (3.5-5.7) LVIDs 1.9 (2.0-3.5) %FS 47% LVPWd 1.1 (0.6-1.2) Ao Diam 2.6 (2.0-3.7) 2 DIMENSIONAL ASSESSMENT: RIGHT ATRIUM: NORMAL LEFT ATRIUM: NORMAL RIGHT VENTRICLE: NORMAL LEFT VENTRICLE: NORMAL TRICUSPID VALVE: NORMAL MITRAL VALVE: NORMAL PULMONIC VALVE: NORMAL AORTIC VALVE: NORMAL PERICARDIAL EFFUSION: NONE AORTIC ROOT: NORMAL LEFT VENTRICULAR WALL MOTION: NORMAL. DOPPLER/COLOR FLOW: NORMAL. COMMENTS: NORMAL 2D ECHO WITH DOPPLER. NO CONGESTIVE HEART FAILURE. NO EFFUSION. TECHNOLOGIST: RUPERT HDZ
--- NOTE | 2018-03-27 15:22 | P.SSS ---
Patient History Date of Service: 03/27/18 Reason for admission: pneumonia History of Present Illness: Ms Cedeno is a 68 years old woman with history of PE, CLL, on plan to start chemotherapy this upcoming week, she was recently admitted to the hospital due to anemia, requiring blood transfusion, she was discharged home yesterday on oral levaquin for early pneumonia. The patient states that she felt weak and had fever 100.6 when got home yesterday. She took ibuprofen to decreased the fever. This morning she was still febrile, and start coughing blood. Her temp at home today was 102.0F. Lab work shows 15.2K (decreasing compared with previous results), CTA shows no PE but bilateral nodular airspace opacities consistent with pneumonia. Temp in ED 102.4F. Allergies ceftriaxone [From Rocephin] Allergy (Verified 03/26/18 03:04) Hives Penicillins Allergy (Verified 03/26/18 03:04) Hives prednisone Adverse Reaction (Verified 03/26/18 03:04) Shortness of breath Home Medications: NK [No Home Meds] 03/26/18 - Past Medical/Surgical History Has patient received pneumonia vaccine in the past: No Diabetic: No -: Chronic Leukemia -: 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 -: PE -: cyst removed from left breast -: left ankle surgery -: Hysterectomy 2018 -: Abdominal hernia repair with mesh placement - Family History Mother -: Heart disease, Other (see notes) Notes: [place], [place] Father -: Cancer Notes: Pancreatic [place] - Social History Smoking Status: Never smoker Alcohol use: No CD- Drugs: No Caffeine use: Yes Place of Residence: Home Review of Systems General: As per HPI Physical Examination - Vital Signs Temperature: 98.4 F Blood Pressure: 127/63 Pulse: 64 Respirations: 17 Pulse Ox (%): 97 - Physical Exam General: Alert, In no apparent distress HEENT: Atraumatic, PERRLA, Mucous membr. moist/pink, EOMI, Sclerae nonicteric Neck: Supple, 2+ carotid pulse no bruit, No LAD, Without JVD or thyroid abnormality Respiratory: Clear to auscultation bilaterally, Normal air movement Cardiovascular: Regular rate/rhythm, Normal S1 S2 Gastrointestinal: Normal bowel sounds, No tenderness Musculoskeletal: No tenderness Integumentary: No rashes Neurological: Normal gait, Normal speech, Normal strength at 5/5 x4 extr, Normal tone, Normal affect Lymphatics: No axilla or inguinal lymphadenopathy - Studies Microbiology Data (last 24 hrs): 03/25/18 22:08 Blood - Blood Anaerobic Blood Culture - Final - Diagnosis (Problem(s)) (1) Pneumonia Onset Date: 03/26/18 Current Visit: Yes Status: Acute Plan: BL PNA on the Xray. Elevated Temp and WBC -On IV cefepime at this time. -Sputum Culture and blood culture negative thus far -Pulmonology consulted. Appreciated reccs -Transfer to the higher level of care for treatment of CLL in lieu of thrombocytopenia, Low RBC. Qualifiers: Pneumonia type: due to unspecified organism Laterality: bilateral Lung location: unspecified part of lung Qualified Code(s): J18.9 - Pneumonia, unspecified organism (2) CLL (chronic lymphocytic leukemia) Onset Date: 01/23/18 Current Visit: No Status: Chronic Plan: Acute Worsening of CLL due to Noncompliance with Chemo and appt with Oncologist. -Pt need to be transfered to higher level of care for inpatient chemo to avoid TLS and DIC from infection. -Pt accepted to [facility] under the care if Dr Chauhan. - Disposition Disposition: ROUTINE DISCHARGE
[2018-03-27 17:50] VITALS: BP 132/63; TEMP 97.8
== END 2018-03-27 16:39 | disposition short-term general hospital (02) ==
LOC: ER 20:37 → INTOOBSV 03-26 01:58 → ERHOLD 03-26 01:58 → 2ND 03-26 02:50
PROVIDERS: ADMIT Internal Medicine; ATTEND Internal Medicine
DX: J18.9 Pneumonia, unspecified organism (principal); C91.10 Chronic lymphocytic leukemia of B-cell type not having achieved remission; D64.9 Anemia, unspecified; Z91.19 Patient's noncompliance with other medical treatment and regimen; Z88.0 Allergy status to penicillin; Z86.711 Personal history of pulmonary embolism
CPT/HCPCS: 36415 ×2; 71045; 71275; 80048 ×3; 80076; 82150; 82550; 82553; 82607; 82746; 83540; 83605; 83615; 83690; 83735; 83880; 84145; 84466; 84484; 84550; 85025 ×3; 85044; 85610; 85730; 87040 ×2; 87070; 87086; 87088; 87205; 93005; 93306; 94760 ×3; 96361; 96374; 99285; G0378 ×2; J0692; J3370; J7030 ×4; Q9967; 81003; 81015; 96365; 96366; 96375

== ENCOUNTER 2018-04-27 11:02 | Emergency (ER) | payer OTHER ==
--- OUTSIDE RECORDS SUMMARY | 2018-04-27 11:04 | XMS REPORT | Continuity of Care Document ---
:1950 Author Organization Interface Problems Problem Status Onset Classification Date Comments Source Date Reported CHRONIC Active [facility] LYMPHOBLASTIC 8 Medical LEUKEMIA Center Medications Medication Details Route Status Patient Ordering Order Source Instructions Provider Date Melatonin 3 MG 3 mg, 1 tab, No Longer [facility] Extended Route: PO, Active 018 Medical Release Tablet Drug Form: Center TAB, Dosing Weight 99.545, kg, Bedtime, Start date: 03/31/18 21:00:00 CDT, Duration: 30 day, Stop date: 04/29/18 21:00:00 CDTNotes: (Same as: Melatonin) Levaquin 750 mg, 1 tab, No Longer [facility] Route: PO, Active 018 Medical Drug form: Center TAB, [id number], Dosing Weight 99.545, kg, Start date: 03/30/18 20:00:00 CDT, Duration: 5 day, Stop date: 04/03/18 20:00:00 CDT, ABX Indication: PneumoniaNotes : Do not give w/antacids, dairy pdt & minerals Take 1 hr before or 2 hr after dairy products Fentanyl 50 microgram, Inactive [facility] Route: IV, 018 Medical ONCE, Dosing Center Weight 99.545, kg, Start date: 03/29/18 9:31:00 CDT, Stop date: 03/29/18 9:31:00 CDT Midazolam 1 mg, Route: Inactive [facility] IV, ONCE, 018 Medical Dosing Weight Center 99.545, kg, Start date: 03/29/18 9:16:00 CDT, Stop date: 03/29/18 9:16:00 CDT Fentanyl 50 microgram, Inactive [facility] Route: IV, 018 Medical ONCE, Dosing Center Weight 99.545, kg, Start date: 03/29/18 9:16:00 CDT, Stop date: 03/29/18 9:16:00 CDT Ibuprofen 200 200 mg, 1 tab, Inactive [facility] MG Oral Tablet Route: PO, 018 Medical Drug form: [place] TAB, ONCE, Dosing Weight 99.545, kg, Start date: 03/28/18 20:45:00 CDT, Stop date: 03/28/18 20:45:00 CDTNotes: (Same as: Advil) Give with food. Tylenol 650 mg, 2 tab, No Longer [facility] Route: PO, Active 018 Medical Drug form: [place] TAB, Q6H, Dosing Weight 99.545, kg, PRN For Temp > 100.4 F, Start date: 03/28/18 14:31:00 CDT, Duration: 30 day, Stop date: 04/27/18 14:30:00 CDTNotes: Do not exceed 4 gm/day. (Same as: Tylenol) Merrem 500 mg, Route: No Longer [facility] IVPB, Drug Active 018 Medical form: PDR/INJ, Center [id number], Dosing Weight 99.545, kg, CrCL=30 -49 ml/min, Extended infusion, infuse over 3 hours, Start date: 03/28/18 9:00:00 CDT, Stop date: 04/06/18 19:00:00 CDT, ABX Indication: PneumoniaNotes : Same as Merrem MEDICATION WASTE Product Size: 500 mg Product Wasted: ___ mg Docusate 100 mg, 1 cap, No Longer [facility] Route: PO, Active 018 Medical Drug form: [place] CAP, BID, Dosing Weight 99.545, kg, Start date: 03/28/18 9:00:00 CDT, Duration: 30 day, Stop date: 04/26/18 17:00:00 CDTNotes: (Same as: Colace) (Do Not Crush) Tessalon 100 mg, 1 cap, No Longer [facility] Perljoya Route: PO, Active 018 Medical Drug form: [place] CAP, TID, Dosing Weight 99.545, kg, PRN Cough, Start date: 03/28/18 0:59:00 CDT, Duration: 30 day, Stop date: 04/27/18 0:58:00 CDTNotes: (Same As: Tessalon Perles) "Do Not Crush" Vancomycin 1.25 gm, No Longer [facility] Route: IVPB, Active 018 Medical [id number], Center Dosing Weight 99.545, kg, Start date: 03/27/18 21:00:00 CDT, Stop date: 04/06/18 9:00:00 CDT, ABX Indication: PneumoniaNotes : TIME CRITICAL MEDICATION (Same As: Vancocin) Infusion rate 2001 mg: infuse over 2.5 hours For adult patients only: Round to nearest 250 mg per Medical Staff approval MEDICATION WASTE Product Size: 1000 mg Product Wasted: ___ mg Zosyn 3.375 gm, Inactive [facility] Route: IVPB, 018 Medical Drug form: Center PDR/INJ, [id number], Dosing Weight 99.545, kg, CrCl >=20 ml/min infuse over 4 hours, Start date: 03/27/18 20:00:00 CDT, Duration: 10 day, Stop date: 04/06/18 12:00:00 CDT, ABX Indication: PneumoniaNotes : (Same as: Zosyn) Dosing based on Piperacillin component MEDICATION WASTE Product Size: 3375 mg Product Wasted: ___ mg Naproxen 500 mg, 1 tab, No Longer [facility] Route: PO, Active 018 Medical Drug form: Center TAB, [id number], Dosing Weight 99.545, kg, Start date: 03/27/18 20:00:00 CDT, Duration: 30 day, Stop date: 04/26/18 8:00:00 CDTNotes: (Same as: Naprosyn) Take with food. Merrem 500 mg, Route: Inactive [facility] IVPB, Drug 018 Medical form: PDR/INJ, Center ABXQ8H, Dosing Weight 99.545, kg, CrCL=30 -49 ml/min, Extended infusion, infuse over 3 hours, Start date: 03/27/18 20:00:00 CDT, Duration: 10 day, Stop date: 04/06/18 12:00:00 CDT, ABX Indication: PneumoniaNotes : Same as Merrem MEDICATION WASTE Product Size: 500 mg Product Wasted: ___ mg Ondansetron 4 mg, 2 mL, No Longer [facility] Route: IVP, Active 018 Medical Drug form: Center INJ, Q6H, Dosing Weight 99.545, kg, PRN Nausea & Vomiting, Start date: 03/27/18 19:39:00 CDT, Duration: 30 day, Stop date: 04/26/18 19:38:00 CDTNotes: (Same as: Zofran) MEDICATION WASTE Product Size: 4 mg Product Wasted: ___ mg Allergies, Adverse Reactions, Alerts Substance Category Reaction Severity Reaction Status Date Comments Source type Reported penicillins Assertion Drug Active [facility] predniSONE Assertion Drug Active [facility] cefTRIAXone Assertion Drug Active [facility] Immunizations Immunization Date Given Site Status Last Updated Comments Source Results Order Name Results Value Reference Date Interpretation Comments Source Range CHEM PANEL A/G Ratio 0.8 0.7 - 1.6 04/[address] CHEM PANEL B/C Ratio 20 6 - 25 04/[address] CHEM PANEL Globulin 3.6 g/dL 2.7 - 4.2 04/[address] CHEM PANEL AGAP 10.2 meq/L 10.0 - 04/01 [facility] 20.0 [facility] CHEM PANEL eGFR 92 04/01 Result Comment: The eGFR is calculated using the CKD-EPI formula. In most young, healthy individuals the eGFR will be >90 mL/ min/1.73m2. The eGFR declines with age. An eGFR of 60-89 may be normal in [facility] mL/min/1.73 [facility] some populations, particularly the elderly, for whom the CKD-EPI formula has not been extensively validated. Use of the eGFR is not recommended in the following populations: [address] Individuals with unstable creatinine concentrations, including patients and those with serious co-morbid conditions. Patients with extremes in muscle mass or diet. The data above are obtained from the National Kidney Disease Education Program (NKDEP) which additionally recommends that when the eGFR is used in patients with extremes of body mass index for purposes of drug dosing, the eGFR should be multiplied by the estimated BMI. CHEM PANEL Alk Phos 67 unit/L 39 - 136 04/[address] CHEM PANEL Bili Total 0.3 mg/dL 0.2 - 1.3 04/[address] CHEM PANEL ALT 16 unit/L 0 - 65 04/[address] CHEM PANEL AST 12 unit/L 0 - 37 04/[address] CHEM PANEL Albumin Lvl 2.8 g/dL 3.5 - 5.0 04/[address] CHEM PANEL Creatinine 0.66 mg/dL 0.50 - 04/01 [facility] Lvl 1.40 [facility] CHEM PANEL Sodium Lvl 141 meq/L 135 - 145 04/[address] CHEM PANEL Total 6.4 g/dL 6.4 - 8.4 04/[address] CHEM PANEL Calcium Lvl 8.6 mg/dL 8.5 - 10.5 04/[address] CHEM PANEL Potassium 4.2 meq/L 3.5 - 5.1 04/01 [facility] [address] [place] [address] CHEM PANEL Chloride Lvl 109 meq/L 95 - 109 04/[address] CHEM PANEL CO2 26 meq/L 24 - 32 04/[address] CHEM PANEL BUN 13 mg/dL 7 - 22 04/[address] CHEM PANEL Glucose Lvl 105 mg/dL 70 - 99 04/[address] HEMATOLOGY Smudge Moderate None Seen 04/01 [facility] [address] [place] [address]* [place] (04/01/18 4:40 AM) HEMATOLOGY Lymphocytes 95.0 % 20.0 - 04/01 [facility] 40.0 [facility] HEMATOLOGY Bands 0.0 % 0.0 - 11.0 04/[address] HEMATOLOGY Anisocyte 1+ None Seen 04/01 [facility] [address] [place] [address]* [place] (04/01/18 4:40 AM) HEMATOLOGY Macrocyte 1+ None Seen 04/01 [facility] [address] [place] [address]* [place] (04/01/18 4:40 AM) HEMATOLOGY Plt Morph Normal 04/01 [facility] [address] [place] [address] (04/01/18 4:40 AM) [place] HEMATOLOGY Tot Cell Ct 100 04/[address] HEMATOLOGY Microcyte 1+ None Seen 04/01 [facility] 2018 Medical *ABN* Center (04/01/18 4:40 AM) HEMATOLOGY Monocytes 2.0 % 2.0 - 12.0 04/01 [facility] HEMATOLOGY Atypical 0.0 % <=0.0 % 04/01 [facility] Lymphs [facility] HEMATOLOGY Segs-Bands # 0.5 K/CMM 1.5 - 8.1 04/[address] HEMATOLOGY Lymphocytes 16.4 K/CMM 1.0 - 5.5 04/01 [facility] # [facility] HEMATOLOGY Segs 3.0 % 45.0 - 04/01 [facility] 75.0 [facility] HEMATOLOGY Monocytes # 0.3 K/CMM 0.0 - 0.8 04/01 [facility] HEMATOLOGY RBC 2.30 M/CMM 4.20 - 04/01 [facility] 5.40 [facility] HEMATOLOGY MCV 100.1 fL 80.0 - 04/01 [facility] 98.0 [facility] HEMATOLOGY MCH 33.9 pg 27.0 - 04/01 [facility] 31.0 [facility] HEMATOLOGY Platelet 44 K/CMM 133 - 450 04/01 [facility] HEMATOLOGY MPV 11.6 fL 7.4 - 10.4 04/01 [facility] HEMATOLOGY MCHC 33.8 g/dL 32.0 - 04/01 [facility] 36.0 [facility] HEMATOLOGY RDW 22.4 % 11.5 - 04/01 [facility] 14.5 [facility] HEMATOLOGY Hgb 7.8 g/dL 12.0 - 04/01 [facility] 16.0 [facility] HEMATOLOGY Hct 23.0 % 36.0 - 04/01 [facility] 48.0 [facility] HEMATOLOGY WBC 17.3 K/CMM 3.7 - 10.4 04/[address] [place] [address] CHEM PANEL B/C Ratio 25 6 - 25 03/[address] CHEM PANEL Globulin 3.7 g/dL 2.7 - 4.2 03/[address] CHEM PANEL AGAP 13.1 meq/L 10.0 - 03/31 [facility] 20.0 [facility] CHEM PANEL A/G Ratio 0.8 0.7 - 1.6 03/[address] CHEM PANEL eGFR 97 03/31 Result Comment: The eGFR is calculated using the CKD-EPI formula. In most young, healthy individuals the eGFR will be >90 mL/ min/1.73m2. The eGFR declines with age. An eGFR of 60-89 may be normal in [facility] mL/min/1.73 some populations, particularly the elderly, for whom the CKD-EPI formula has not been extensively validated. Use of the eGFR is not recommended in the following populations: [place] [address] Center Individuals with unstable creatinine concentrations, including patients and those with serious co-morbid conditions. Patients with extremes in muscle mass or diet. The data above are obtained from the National Kidney Disease Education Program (NKDEP) which additionally recommends that when the eGFR is used in patients with extremes of body mass index for purposes of drug dosing, the eGFR should be multiplied by the estimated BMI. CHEM PANEL Bili Total 0.3 mg/dL 0.2 - 1.3 03/[address] CHEM PANEL ALT 16 unit/L 0 - 65 03/[address] CHEM PANEL AST 10 unit/L 0 - 37 03/[address] CHEM PANEL Total 6.5 g/dL 6.4 - 8.4 03/[address] CHEM PANEL Alk Phos 67 unit/L 39 - 136 03/[address] CHEM PANEL Albumin Lvl 2.8 g/dL 3.5 - 5.0 03/[address] CHEM PANEL BUN 14 mg/dL 7 - 22 03/[address] CHEM PANEL Glucose Lvl 100 mg/dL 70 - 99 03/[address] CHEM PANEL Sodium Lvl 144 meq/L 135 - 145 03/[address] CHEM PANEL Potassium 4.1 meq/L 3.5 - 5.1 03/31 [facility] [address] [place] [address] CHEM PANEL Creatinine 0.57 mg/dL 0.50 - 03/31 [facility] Lvl 1.40 [facility] CHEM PANEL CO2 25 meq/L 24 - 32 03/[address] CHEM PANEL Chloride Lvl 110 meq/L 95 - 109 03/[address] CHEM PANEL Calcium Lvl 8.9 mg/dL 8.5 - 10.5 03/[address] HEMATOLOGY Eosinophils 0.1 K/CMM 0.0 - 0.5 03/31 [facility] HEMATOLOGY Smudge Moderate None Seen 03/31 [facility] *ABN* Center (03/31/18 3:54 AM) HEMATOLOGY Anisocyte 1+ None Seen 03/31 [facility] Center (03/31/18 3:54 AM) HEMATOLOGY Eosinophils 0.8 % 0.0 - 4.0 03/31 2017 [facility] HEMATOLOGY Monocytes # 0.1 K/CMM 0.0 - 0.8 03/31 [facility] HEMATOLOGY Lymphocytes 16.5 K/CMM 1.0 - 5.5 03/31 [facility] HEMATOLOGY Segs-Bands # 0.7 K/CMM 1.5 - 8.1 03/31 2017 [facility] HEMATOLOGY Basophils 0.1 % 0.0 - 1.0 03/31 2017 [facility] HEMATOLOGY Monocytes 0.5 % 2.0 - 12.0 03/[address] HEMATOLOGY Lymphocytes 94.4 % 20.0 - 03/31 [facility] 40.0 [facility] HEMATOLOGY Segs 4.2 % 45.0 - 03/31 [place] 75.0 [facility] HEMATOLOGY Plt Morph Normal 03/31 [facility] (03/31/18 3:54 AM) [place] HEMATOLOGY Hgb 7.4 g/dL 12.0 - 03/31 16.0 [facility] HEMATOLOGY RBC 2.21 M/CMM 4.20 - 03/31 [place] 5.40 [facility] HEMATOLOGY WBC 17.5 K/CMM 3.7 - 10.4 03/31 [facility] HEMATOLOGY Platelet 41 K/CMM 133 - 450 03/31 [facility] HEMATOLOGY RDW 21.9 % 11.5 - 03/31 [place] 14.5 [facility] HEMATOLOGY MCHC 33.6 g/dL 32.0 - 03/31 [place] 36.0 [facility] HEMATOLOGY MCV 99.9 fL 80.0 - 03/31 [facility] 98.0 [facility] HEMATOLOGY MCH 33.5 pg 27.0 - 03/31 [place] 31.0 [facility] HEMATOLOGY Hct 22.1 % 36.0 - 03/31 [place] 48.0 [facility] HEMATOLOGY MPV 11.1 fL 7.4 - 10.4 03/[address] CHEM PANEL eGFR 92 03/30 Result Comment: The eGFR is calculated using the CKD-EPI formula. In most young, healthy individuals the eGFR will be >90 mL/ min/1.73m2. The eGFR declines with age. An eGFR of 60-89 may be normal in [facility] mL/min/1.73 /2017 some populations, particularly the elderly, for whom the CKD-EPI formula has not been extensively validated. Use of the eGFR is not recommended in the following populations: [address] Individuals with unstable creatinine concentrations, including patients and those with serious co-morbid conditions. Patients with extremes in muscle mass or diet. The data above are obtained from the National Kidney Disease Education Program (NKDEP) which additionally recommends that when the eGFR is used in patients with extremes of body mass index for purposes of drug dosing, the eGFR should be multiplied by the estimated BMI. CHEM PANEL Bili Total 0.2 mg/dL 0.2 - 1.3 03/[address] CHEM PANEL ALT 18 unit/L 0 - 65 03/[address] CHEM PANEL Albumin Lvl 3.4 g/dL 3.5 - 5.0 03/[address] CHEM PANEL Total 6.7 g/dL 6.4 - 8.4 03/[address] CHEM PANEL Alk Phos 73 unit/L 39 - 136 03/[address] CHEM PANEL AST 9 unit/L 0 - 37 03/[address] CHEM PANEL Calcium Lvl 8.6 mg/dL 8.5 - 10.5 03/[address] CHEM PANEL CO2 25 meq/L 24 - 32 03/[address] CHEM PANEL Sodium Lvl 141 meq/L 135 - 145 03/[address] CHEM PANEL Creatinine 0.66 mg/dL 0.50 - 03/30 [facility] 1.40 [facility] CHEM PANEL BUN 14 mg/dL 7 - 22 03/[address] CHEM PANEL Glucose Lvl 110 mg/dL 70 - 99 03/[address] CHEM PANEL Potassium 3.9 meq/L 3.5 - 5.1 03/30 [facility] CHEM PANEL Chloride Lvl 107 meq/L 95 - 109 03/30 [facility] CHEM PANEL A/G Ratio 1.0 0.7 - 1.6 03/30 [facility] CHEM PANEL Globulin 3.3 g/dL 2.7 - 4.2 03/[address] CHEM PANEL AGAP 12.9 meq/L 10.0 - 03/30 20.0 [facility] CHEM PANEL B/C Ratio 21 6 - 25 03/30 [facility] HEMATOLOGY MCHC 34.4 g/dL 32.0 - 03/30 36.0 [facility] HEMATOLOGY MCH 34.1 pg 27.0 - 03/30 31.0 [facility] HEMATOLOGY MPV 10.7 fL 7.4 - 10.4 03/[address] HEMATOLOGY Platelet 41 K/CMM 133 - 450 03/[address] HEMATOLOGY RDW 22.1 % 11.5 - 03/30 14.5 [facility] HEMATOLOGY MCV 99.2 fL 80.0 - 03/30 [facility] 98.0 [facility] HEMATOLOGY Hct 23.9 % 36.0 - 03/30 [place] 48.0 [facility] HEMATOLOGY Hgb 8.2 g/dL 12.0 - 03/30 16.0 [facility] HEMATOLOGY WBC 14.6 K/CMM 3.7 - 10.4 03/30 [facility] HEMATOLOGY RBC 2.41 M/CMM 4.20 - 03/30 5.40 [facility] HEMATOLOGY Segs 4.7 % 45.0 - 03/30 [place] 75.0 [facility] HEMATOLOGY Lymphocytes 93.5 % 20.0 - 03/30 [place] 40.0 [facility] HEMATOLOGY Monocytes 0.6 % 2.0 - 12.0 03/[address] HEMATOLOGY Eosinophils 1.1 % 0.0 - 4.0 03/[address] [place] [address] HEMATOLOGY Monocytes # 0.1 K/CMM 0.0 - 0.8 03/30 [facility] [address] [place] [address] HEMATOLOGY Basophils 0.1 % 0.0 - 1.0 03/[address] [place] [address] HEMATOLOGY Lymphocytes 13.7 K/CMM 1.0 - 5.5 03/[address] HEMATOLOGY Segs-Bands # 0.7 K/CMM 1.5 - 8.1 03/[address] HEMATOLOGY Anisocyte 1+ None Seen 03/[address]* [place] (03/30/18 5:34 AM) HEMATOLOGY Smudge Moderate None Seen 03/[address]* [place] (03/30/18 5:34 AM) HEMATOLOGY Eosinophils 0.2 K/CMM 0.0 - 0.5 03/[address] HEMATOLOGY Plt Morph Normal 03/[address] (03/30/18 5:34 AM) [place] HEMATOLOGY Retic Auto 1.0 % 0.5 - 1.5 03/[address] HEMATOLOGY Eosinophils 0.1 K/CMM 0.0 - 0.5 03/[address] HEMATOLOGY Eosinophils 0.8 % 0.0 - 4.0 03/[address] Bone Marrow Bone Marrow EXAM: VIR Bone Marrow Biopsy with CT Guidance - [facility] Bio/Aspr CT Bio/Aspr CA /2017 - [facility] DATE: 03/29/2018 8:26 AM CDT This report was dictated by a Special Investigation Unit Investigator/Fellow. I have personally reviewed the images as Center well as the Resident's interpretation and agree with the findings. INDICATION: 68 years old Female with CLL. Read by: Luan Gunn MD Resident: Luan Gunn MD Dictated Date/time: 03/29/18 10:39 PROCEDURE(S) PERFORMED: CT guided bone marrow aspirate and trephine biopsy. Electronically Signed by: Fran Tobin MD 04/01/18 20:42 FINAL REPORT FACULTY: Fran Tobin MD RESIDENT/FELLOW/AUTOMOTIVE SERVICE CASHIER: Luan Gunn M.D. ANESTHESIA/SEDATION: Moderate sedation PHYSICIAN SUPERVISED ANESTHESIA TIME: 20 min SPECIMEN: none DRAINS: None ESTIMATED BLOOD LOSS: Less than 1 cc COMPLICATIONS: None immediate RADIATION DOSE: 318 mGy PROCEDURE AND FINDINGS: After the risks, benefits, and alternatives of the procedure were explained to the patient, verbal and written consent was obtained and a copy was placed on the chart. Patient was brought to the CT suit e and a time-out was performed. The region overlying the left iliac crest and sacrum was sterilely prepped and draped. Maximal sterile barrier precautions were used. Lidocaine was infiltrated into the s ubcutaneous soft tissues for local anesthesia. A small skin incision was made. An 11-gauge bone biopsy needle was advanced under CT guidance into the left iliac crest. 3 "dry" samples and 2 we t samples were aspirated and given to hematology, who was present for the procedure. A core biopsy was obtained with the 11-gauge needle and given to hematology. The needle was removed and hemostasis ac hieved with manual compression. A sterile dressing was applied. The patient appeared to tolerate the procedure well. IMPRESSION: Successful CT-guided percutaneous bone marrow biopsy as described. PLAN/FOLLOW UP: No interventional radiology follow up required. The patient will follow up with the primary service. Dr. Fran Tobin MD was present for the procedure. CHEM PANEL X-7-Ccowkoxo 3.5 mg/L 1.0 - 2.3 03/[address] CHEM PANEL LDH 165 unit/L 98 - 192 03/[address] CHEM PANEL Uric Acid 4.9 mg/dL 2.5 - 7.0 03/[address] HEMATOLOGY PB Smear Peripheral 03/28 [facility] Path blood smear /[address] [place] [address] macrocytic hypochromic anemia with slight polychromas ia, and moderate thrombocyto penia with normal morphology of platelets. Leukocytes are moderately increased with lymphocytos is and neutropenia ; the lymphocytes are small, and display markedly clumped chromatin. A few smudge cells are also seen.Per the EMR, the patient was diagnosed with chronic lymphocytic leukemia in 2017, with outside oncology follow-up, without treatment. The current findings are consistent with the history.CPT : 31091 CHEM PANEL Phosphorus 3.7 mg/dL 2.5 - 4.5 03/[address] CHEM PANEL Magnesium 2.2 mg/dL 1.8 - 2.4 03/28 [facility] Lvl [address] HEMATOLOGY Atypical 0.0 % <=0.0 % 03/28 [facility] Lymphs [address] HEMATOLOGY Bands 0.0 % 0.0 - 11.0 03/[address] HEMATOLOGY PTT 29.3 s 22.9 - 03/28 [facility] 35.8 [facility] HEMATOLOGY PT 13.6 s 12.0 - 03/28 [facility] 14. [facility] HEMATOLOGY INR 1.04 0.85 - 03/28 [facility] 1. [facility] Chest 1view Chest 1view EXAM: XR CHEST 1 VIEW 03/27 - [facility] DX - [facility] DATE: 03/27/2018 7:58 PM CDT Read by: Lexx Toledo MD Dictated Date/time: 03/28/18 11:07 Electronically Signed by: Lexx Toledo MD 03/28/18 11:08 FINAL REPORT INDICATION: Respiratory distress - PNA COMPARISON: None. TECHNIQUE: AP chest FINDINGS: Lines, tubes and hardware: None. Lungs and pleura: No pulmonary or pleural based abnormality is identified. Pulmonary vascularity is normal. Heart and mediastinum: The heart size is normal for technique. The mediastinal contours are normal. Bones: No change from prior exam. IMPRESSION: No acute cardiopulmonary abnormality. Vital Signs Vital Sign Value Date Comments Source Heart Rate 80 04/02/2018 [facility] Systolic (mm Hg) 120 04/02/2018 [facility] Diastolic (mm Hg) 71 04/02/2018 [facility] Temperature Oral (F) 98.9 F 04/02/2018 [facility] Respitory Rate 20 04/02/2018 [facility] Heart Rate 78 04/02/2018 [facility] Temperature Oral (F) 99.2 F 04/02/2018 [facility] Systolic (mm Hg) 113 04/02/2018 [facility] Diastolic (mm Hg) 67 04/02/2018 [facility] Systolic (mm Hg) 126 04/02/2018 [facility] Diastolic (mm Hg) 67 04/02/2018 [facility] Heart Rate 73 04/02/2018 [facility] Respitory Rate 18 04/02/2018 [facility] Temperature Oral (F) 98 F 04/02/2018 [facility] Respitory Rate 18 04/02/2018 [facility] BMI Calculated 38.88 03/27/2018 [facility] Weight 99.545 03/27/2018 [facility] Height 160.02 cm 03/27/2018 [facility] BMI Calculated 38.7 03/27/2018 [facility] Height 160.02 cm 03/27/2018 [facility] Weight 99.091 03/27/2018 [facility] Encounters Location Location Encounter Encounter Reason Attending ADM DC Status Source Details Type Number For Provider Date Date Visit [facility] [id number] Non 03/27 04/02 Nasir Reyez Physician /2017 [facility] Procedures Procedure Code Date Perfomer Comments Source 03/29/2018 [facility] Biopsy, bone, 03/29/2018 [facility] trocar, or [facility] needle; deep (eg, vertebral body, femur)
--- OUTSIDE RECORDS SUMMARY | 2018-04-27 11:05 | XMS REPORT | Summary of Care ---
:1950 Author Organization [facility] Address [address] [place] [id number]- Encounter HQ Budntr_carla(FIN) [phone] Date(s): 03/27/18 - 04/02/[address] Professional Services provided by [facility] [place] [address]- Discharge Disposition: Home or Self Care Attending Physician: Alisha Alexander MD Admitting Physician: Luan Hanna DO Referring Physician: Physician, Non Associated MD Vital Signs Most recent to oldest 1 2 3 [Reference Range]: Height 160.02 cm 160.02 cm (03/27/18 6:50 PM) (03/27/18 6:20 PM) Temperature Oral [96.4-99.1 98.9 DegF 99.2 DegF 98 DegF DegF] (04/02/18 12:20 PM) *HI* (04/02/18 4:15 AM) (04/02/18 7:30 AM) Blood Pressure [90-140/60-90 120/71 mmHg 113/67 mmHg 126/67 mmHg mmHg] (04/02/18 12:20 PM) (04/02/18 7:30 AM) (04/02/18 4:15 AM) Respiratory Rate [14-20 20 BRMIN 18 BRMIN 18 BRMIN BRMIN] (04/02/18 12:20 PM) (04/02/18 4:15 AM) (04/02/18 12:04 AM) Peripheral Pulse Rate [60-100 80 bpm 78 bpm 73 bpm bpm] (04/02/18 12:20 PM) (04/02/18 7:30 AM) (04/02/18 4:15 AM) Weight 99.545 kg 99.091 kg (03/27/18 6:50 PM) (03/27/18 6:20 PM) Body Mass Index 38.88 m2 38.7 m2 (03/27/18 6:50 PM) (03/27/18 6:20 PM) Problem List No data available for this section Allergies, Adverse Reactions, Alerts Substance Reaction Severity Status penicillins Active predniSONE Active cefTRIAXone Active Medications docusate 100 mg, 1 cap, Route: PO, Drug form: CAP, BID, Dosing Weight 99.545, kg, Start date: 03/28/18 9:00:00 CDT, Duration: 30 day, Stop date: 04/26/18 17:00:00 CDT Notes: (Same as: Colace) (Do Not Crush) Start Date: 03/28/18 Stop Date: 04/02/18 Status: DiscontinuedfentaNYL 50 microgram, Route: IV, ONCE, Dosing Weight 99.545, kg, Start date: 03/29/18 9: 16:00 CDT, Stop date: 03/29/18 9:16:00 CDT Start Date: 03/29/18 Stop Date: 03/29/18 Status: CompletedfentaNYL 50 microgram, Route: IV, ONCE, Dosing Weight 99.545, kg, Start date: 03/29/18 9: 31:00 CDT, Stop date: 03/29/18 9:31:00 CDT Start Date: 03/29/18 Stop Date: 03/29/18 Status: Completedibuprofen 200 mg oral tablet 200 mg, 1 tab, Route: PO, Drug form: TAB, ONCE, Dosing Weight 99.545, kg, Start date: 03/28/18 20:45:00 CDT, Stop date: 03/28/18 20:45:00 CDT Notes: (Same as: Advil) Give with food. Start Date: 03/28/18 Stop Date: 03/28/18 Status: CompletedLevaquin 750 mg, 1 tab, Route: PO, Drug form: TAB, [id number], Dosing Weight 99.545, kg, Start date: 03/30/18 20:00:00 CDT, Duration: 5 day, Stop date: 04/03/18 20:00: 00 CDT, ABX Indication: Pneumonia Notes: Do not give w/antacids, dairy pdt & mineralsTake 1 hr before or 2 hr after dairy products Start Date: 03/30/18 Stop Date: 04/02/18 Status: Discontinuedmelatonin 3 mg oral tablet 3 mg, 1 tab, Route: PO, Drug Form: TAB, Dosing Weight 99.545, kg, Bedtime, Start date: 03/31/18 21:00:00 CDT, Duration: 30 day, Stop date: 04/29/18 21:00: 00 CDT Notes: (Same as: Melatonin) Start Date: 03/31/18 Stop Date: 04/02/18 Status: DiscontinuedMerrem 500 mg, Route: IVPB, Drug form: PDR/INJ, [id number], Dosing Weight 99.545, kg, CrCL= 30 -49 ml/min, Extended infusion, infuse over 3 hours, Start date: 03/28/18 9: 00:00 CDT, Stop date: 04/06/18 19:00:00 CDT, ABX Indication: Pneumonia Notes: Same as Merrem MEDICATION WASTE Product Size: 500 mgProduct Wasted: ___ mg Start Date: 03/28/18 Stop Date: 03/30/18 Status: DiscontinuedMerrem 500 mg, Route: IVPB, Drug form: PDR/INJ, [id number], Dosing Weight 99.545, kg, CrCL= 30 -49 ml/min, Extended infusion, infuse over 3 hours, Start date: 03/27/18 20: 00:00 CDT, Duration: 10 day, Stop date: 04/06/18 12:00:00 CDT, ABX Indication: Pneumonia Notes: Same as Merrem MEDICATION WASTE Product Size: 500 mgProduct Wasted: ___ mg Start Date: 03/27/18 Stop Date: 03/27/18 Status: Discontinuedmidazolam 1 mg, Route: IV, ONCE, Dosing Weight 99.545, kg, Start date: 03/29/18 9:16:00 CDT, Stop date: 03/29/18 9:16:00 CDT Start Date: 03/29/18 Stop Date: 03/29/18 Status: Completednaproxen 500 mg, 1 tab, Route: PO, Drug form: TAB, [id number], Dosing Weight 99.545, kg, Start date: 03/27/18 20:00:00 CDT, Duration: 30 day, Stop date: 04/26/18 8:00: 00 CDT Notes: (Same as: Naprosyn) Take with food. Start Date: 03/27/18 Stop Date: 03/28/18 Status: Discontinuedondansetron 4 mg, 2 mL, Route: IVP, Drug form: INJ, Q6H, Dosing Weight 99.545, kg, PRN Nausea & Vomiting, Start date: 03/27/18 19:39:00 CDT, Duration: 30 day, Stop date: 04/26/18 19:38:00 CDT Notes: (Same as: Zofran) MEDICATION WASTE Product Size: 4 mgProduct Wasted: ___ mg Start Date: 03/27/18 Stop Date: 04/02/18 Status: DiscontinuedTessalon Perles 100 mg, 1 cap, Route: PO, Drug form: CAP, TID, Dosing Weight 99.545, kg, PRN Cough, Start date: 03/28/18 0:59:00 CDT, Duration: 30 day, Stop date: 04/27/18 0 :58:00 CDT Notes: (Same As: Tessalon Deysi)"Do Not Crush" Start Date: 03/28/18 Stop Date: 04/02/18 Status: DiscontinuedTylenol 650 mg, 2 tab, Route: PO, Drug form: TAB, Q6H, Dosing Weight 99.545, kg, PRN For Temp > 100.4 F, Start date: 03/28/18 14:31:00 CDT, Duration: 30 day, Stop date: 04/27/18 14:30:00 CDT Notes: Do not exceed 4 gm/day. (Same as: Tylenol) Start Date: 03/28/18 Stop Date: 04/02/18 Status: Discontinuedvancomycin + Sodium Chloride 0.9% IV 250 mL 1.25 gm, Route: IVPB, [id number], Dosing Weight 99.545, kg, Start date: 03/27/18 21 :00:00 CDT, Stop date: 04/06/18 9:00:00 CDT, ABX Indication: Pneumonia Notes: TIME CRITICAL MEDICATION(Same As: Vancocin)Infusion rate< 1000 mg: infuse over 1 [id number] - 1500 mg: infuse over 1.5 hoursVancomycin FOR IV SET [id number] - 2000 mg: infuse over 2 hours>2001 mg: infuse over 2.5 hoursFor adult patients only: Round to nearest 250 mg per Medical Staff approval MEDICATION WASTE Product Size: 1000 mgProduct Wasted: ___ mg Start Date: 03/27/18 Stop Date: 03/30/18 Status: DiscontinuedZosyn 3.375 gm, Route: IVPB, Drug form: PDR/INJ, [id number], Dosing Weight 99.545, kg, CrCl >=20 ml/min infuse over 4 hours, Start date: 03/27/18 20:00:00 CDT, Duration: 10 day, Stop date: 04/06/18 12:00:00 CDT, ABX Indication: Pneumonia Notes: (Same as: Zosyn)Dosing based on Piperacillin component MEDICATION WASTE Product Size: 3375 mgProduct Wasted: ___ mg Start Date: 03/27/18 Stop Date: 03/27/18 Status: Canceled Results ELECTROLYTES Most recent to oldest 1 2 3 [Reference Range]: Sodium Lvl [135-145 mEq/L] 141 mEq/L 144 mEq/L 141 mEq/L (04/01/18 4:40 AM) (03/31/18 3:54 AM) (03/30/18 5:34 AM) Potassium Lvl [3.5-5.1 4.2 mEq/L 4.1 mEq/L 3.9 mEq/L mEq/L] (04/01/18 4:40 AM) (03/31/18 3:54 AM) (03/30/18 5:34 AM) Chloride Lvl [95-109 mEq/L] 109 mEq/L 110 mEq/L 107 mEq/L (04/01/18 4:40 AM) *HI* (03/30/18 5:34 AM) (03/31/18 3:54 AM) CO2 [24-32 mEq/L] 26 mEq/L 25 mEq/L 25 mEq/L (04/01/18 4:40 AM) (03/31/18 3:54 AM) (03/30/18 5:34 AM) AGAP [10.0-20.0 mEq/L] 10.2 mEq/L 13.1 mEq/L 12.9 mEq/L (04/01/18 4:40 AM) (03/31/18 3:54 AM) (03/30/18 5:34 AM) CHEM PANEL Most recent to oldest 1 2 3 [Reference Range]: Creatinine Lvl [0.50-1.40 0.66 mg/dL 0.57 mg/dL 0.66 mg/dL mg/dL] (04/01/18 4:40 AM) (03/31/18 3:54 AM) (03/30/18 5:34 AM) eGFR 92 mL/min/1.73m2 1 97 mL/min/1.73m2 2 92 mL/min/1.73m2 3 *NA* *NA* *NA* (04/01/18 4:40 AM) (03/31/18 3:54 AM) (03/30/18 5:34 AM) BUN [7-22 mg/dL] 13 mg/dL 14 mg/dL 14 mg/dL (04/01/18 4:40 AM) (03/31/18 3:54 AM) (03/30/18 5:34 AM) B/C Ratio [6-25] 20 25 21 (04/01/18 4:40 AM) (03/31/18 3:54 AM) (03/30/18 5:34 AM) Glucose Lvl [70-99 mg/dL] 105 mg/dL 100 mg/dL 110 mg/dL *HI* *HI* *HI* (04/01/18 4:40 AM) (03/31/18 3:54 AM) (03/30/18 5:34 AM) Uric Acid [2.5-7.0 mg/dL] 4.9 mg/dL (03/28/18 11:00 AM) Total Protein [6.4-8.4 6.4 g/dL 6.5 g/dL 6.7 g/dL g/dL] (04/01/18 4:40 AM) (03/31/18 3:54 AM) (03/30/18 5:34 AM) Albumin Lvl [3.5-5.0 g/dL] 2.8 g/dL 2.8 g/dL 3.4 g/dL *LOW* *LOW* *LOW* (04/01/18 4:40 AM) (03/31/18 3:54 AM) (03/30/18 5:34 AM) Globulin [2.7-4.2 g/dL] 3.6 g/dL 3.7 g/dL 3.3 g/dL (04/01/18 4:40 AM) (03/31/18 3:54 AM) (03/30/18 5:34 AM) A/G Ratio [0.7-1.6] 0.8 0.8 1.0 (04/01/18 4:40 AM) (03/31/18 3:54 AM) (03/30/18 5:34 AM) Calcium Lvl [8.5-10.5 8.6 mg/dL 8.9 mg/dL 8.6 mg/dL mg/dL] (04/01/18 4:40 AM) (03/31/18 3:54 AM) (03/30/18 5:34 AM) Phosphorus [2.5-4.5 mg/dL] 3.7 mg/dL (03/27/18 10:41 PM) Magnesium Lvl [1.8-2.4 2.2 mg/dL mg/dL] (03/27/18 10:41 PM) ALT [0-65 unit/L] 16 unit/L 16 unit/L 18 unit/L (04/01/18 4:40 AM) (03/31/18 3:54 AM) (03/30/18 5:34 AM) AST [0-37 unit/L] 12 unit/L 10 unit/L 9 unit/L (04/01/18 4:40 AM) (03/31/18 3:54 AM) (03/30/18 5:34 AM) Alk Phos [39-136 unit/L] 67 unit/L 67 unit/L 73 unit/L (04/01/18 4:40 AM) (03/31/18 3:54 AM) (03/30/18 5:34 AM) LDH [98-192 unit/L] 165 unit/L (03/28/18 11:00 AM) Bili Total [0.2-1.3 mg/dL] 0.3 mg/dL 0.3 mg/dL 0.2 mg/dL (04/01/18 4:40 AM) (03/31/18 3:54 AM) (03/30/18 5:34 AM) S-4-Wipquxilr [1.0-2.3 3.5 mg/L mg/L] *HI* (03/28/18 11:00 AM) 1Result Comment: The eGFR is calculated using the CKD-EPI formula. In most young , healthy individualsthe eGFR will be >90 mL/min/1.73m2. The eGFR declines with age. An eGFR of 60-89 may be normal insome populations, particularly the elderly, for whom the CKD-EPI formula has not been extensively validated. Use of the eGFR is not recommended in the following populations: Individuals with unstable creatinine concentrations, including patients and those with serious co-morbid conditions. Patients with extremes in muscle mass or diet. The data above are obtained from the National Kidney Disease Education Program ( NKDEP) which additionally recommends that when the eGFR is used in patients with extremes of body mass index for purposesof drug dosing, the eGFR should be multiplied by the estimated BMI.2Result Comment: The eGFR is calculated using the CKD-EPI formula. In most young, healthy individualsthe eGFR will be >90 mL/min/1.73m2. The eGFR declines with age. An eGFR of 60-89 may be normal insome populations, particularly the elderly, for whom the CKD-EPI formula has not been extensively validated. Use of the eGFR is not recommended in the following populations: Individuals with unstable creatinine concentrations, including patients and those with serious co-morbid conditions. Patients with extremes in muscle mass or diet. The data above are obtained from the National Kidney Disease Education Program ( NKDEP) which additionally recommends that when the eGFR is used in patients with extremes of body mass index for purposesof drug dosing, the eGFR should be multiplied by the estimated BMI.3Result Comment: The eGFR is calculated using the CKD-EPI formula. In most young, healthy individualsthe eGFR will be >90 mL/min/1.73m2. The eGFR declines with age. An eGFR of 60-89 may be normal insome populations, particularly the elderly, for whom the CKD-EPI formula has not been extensively validated. Use of the eGFR is not recommended in the following populations: Individuals with unstable creatinine concentrations, including patients and those with serious co-morbid conditions. Patients with extremes in muscle mass or diet. The data above are obtained from the National Kidney Disease Education Program ( NKDEP) which additionally recommends that when the eGFR is used in patients with extremes of body mass index for purposesof drug dosing, the eGFR should be multiplied by the estimated BMI.TOXICOLOGY Most recent to oldest [Reference Range]: 1 2 3 Vanco Tr TND 0830 *NA* (03/29/18 8:29 AM) Vanco Tr 10.1 ug/ml *NA* (03/29/18 8:29 AM) HEMATOLOGY Most recent to oldest 1 2 3 [Reference Range]: WBC [3.7-10.4 K/CMM] 17.3 K/CMM 17.5 K/CMM 14.6 K/CMM *HI* *HI* *HI* (04/01/18 4:40 AM) (03/31/18 3:54 AM) (03/30/18 5:34 AM) RBC [4.20-5.40 M/CMM] 2.30 M/CMM 2.21 M/CMM 2.41 M/CMM *LOW* *LOW* *LOW* (04/01/18 4:40 AM) (03/31/18 3:54 AM) (03/30/18 5:34 AM) Hgb [12.0-16.0 g/dL] 7.8 g/dL 7.4 g/dL 8.2 g/dL *LOW* *LOW* *LOW* (04/01/18 4:40 AM) (03/31/18 3:54 AM) (03/30/18 5:34 AM) Hct [36.0-48.0 %] 23.0 % 22.1 % 23.9 % *LOW* *LOW* *LOW* (04/01/18 4:40 AM) (03/31/18 3:54 AM) (03/30/18 5:34 AM) MCV [80.0-98.0 fL] 100.1 fL 99.9 fL 99.2 fL *HI* *HI* *HI* (04/01/18 4:40 AM) (03/31/18 3:54 AM) (03/30/18 5:34 AM) MCH [27.0-31.0 pg] 33.9 pg 33.5 pg 34.1 pg *HI* *HI* *HI* (04/01/18 4:40 AM) (03/31/18 3:54 AM) (03/30/18 5:34 AM) MCHC [32.0-36.0 g/dL] 33.8 g/dL 33.6 g/dL 34.4 g/dL (04/01/18 4:40 AM) (03/31/18 3:54 AM) (03/30/18 5:34 AM) RDW [11.5-14.5 %] 22.4 % 21.9 % 22.1 % *HI* *HI* *HI* (04/01/18 4:40 AM) (03/31/18 3:54 AM) (03/30/18 5:34 AM) MPV [7.4-10.4 fL] 11.6 fL 11.1 fL 10.7 fL *HI* *HI* *HI* (04/01/18 4:40 AM) (03/31/18 3:54 AM) (03/30/18 5:34 AM) Platelet [133-450 44 K/CMM 41 K/CMM 41 K/CMM K/CMM] *LOW* *LOW* *LOW* (04/01/18 4:40 AM) (03/31/18 3:54 AM) (03/30/18 5:34 AM) Segs [45.0-75.0 %] 3.0 % 4.2 % 4.7 % *LOW* *LOW* *LOW* (04/01/18 4:40 AM) (03/31/18 3:54 AM) (03/30/18 5:34 AM) Bands [0.0-11.0 %] 0.0 % 0.0 % (04/01/18 4:40 AM) (03/27/18 10:41 PM) Lymphocytes [20.0-40.0 95.0 % 94.4 % 93.5 % %] *HI* *HI* *HI* (04/01/18 4:40 AM) (03/31/18 3:54 AM) (03/30/18 5:34 AM) Atypical Lymphs [<=0.0 0.0 % 0.0 % %] (04/01/18 4:40 AM) (03/27/18 10:41 PM) Monocytes [2.0-12.0 %] 2.0 % 0.5 % 0.6 % (04/01/18 4:40 AM) *LOW* *LOW* (03/31/18 3:54 AM) (03/30/18 5:34 AM) Eosinophils [0.0-4.0 0.8 % 1.1 % 0.8 % %] (03/31/18 3:54 AM) (03/30/18 5:34 AM) (03/29/18 7:14 AM) Basophils [0.0-1.0 %] 0.1 % 0.1 % (03/31/18 3:54 AM) (03/30/18 5:34 AM) Segs-Bands # [1.5-8.1 0.5 K/CMM 0.7 K/CMM 0.7 K/CMM K/CMM] *LOW* *LOW* *LOW* (04/01/18 4:40 AM) (03/31/18 3:54 AM) (03/30/18 5:34 AM) Lymphocytes # [1.0-5.5 16.4 K/CMM 16.5 K/CMM 13.7 K/CMM K/CMM] *HI* *HI* *HI* (04/01/18 4:40 AM) (03/31/18 3:54 AM) (03/30/18 5:34 AM) Monocytes # [0.0-0.8 0.3 K/CMM 0.1 K/CMM 0.1 K/CMM K/CMM] (04/01/18 4:40 AM) (03/31/18 3:54 AM) (03/30/18 5:34 AM) Eosinophils # [0.0-0.5 0.1 K/CMM 0.2 K/CMM 0.1 K/CMM K/CMM] (03/31/18 3:54 AM) (03/30/18 5:34 AM) (03/29/18 7:14 AM) Tot Cell Ct 100 *NA* (04/01/18 4:40 AM) Anisocyte [None Seen] 1+ 1+ 1+ *ABN* *ABN* *ABN* (04/01/18 4:40 AM) (03/31/18 3:54 AM) (03/30/18 5:34 AM) Macrocyte [None Seen] 1+ *ABN* (04/01/18 4:40 AM) Microcyte [None Seen] 1+ *ABN* (04/01/18 4:40 AM) Smudge [None Seen] Moderate Moderate Moderate *ABN* *ABN* *ABN* (04/01/18 4:40 AM) (03/31/18 3:54 AM) (03/30/18 5:34 AM) PB Smear Path Peripheral blood smear shows macrocytic hypochromic anemia with slight polychromasia, and moderate thrombocytopenia with normal morphology of platelets. Leukocytes are moderately increased with lymphoc ytosis and neutropenia; the lymphocytes are small, and display markedly clumped chromatin. A few smudge cells are also seen. Per the EMR, the patient was diagnosed with chronic lymphocytic leukemia in 2017, with outside oncology follow-up, without treatment. The current findings are consistent with the history. CPT: 01032 *NA* (03/28/18 11:00 AM) Plt Morph Normal Normal Normal (04/01/18 4:40 AM) (03/31/18 3:54 AM) (03/30/18 5:34 AM) Retic Auto [0.5-1.5 %] 1.0 % (03/29/18 7:14 AM) PT [12.0-14.7 seconds] 13.6 seconds (03/27/18 10:41 PM) INR [0.85-1.17] 1.04 (03/27/18 10:41 PM) PTT [22.9-35.8 29.3 seconds seconds] (03/27/18 10:41 PM) Immunizations No data available for this section Procedures Procedure Date Related Diagnosis Body Site Status 03/29/18 Completed Biopsy, bone, trocar, or needle; deep 03/29/18 Completed (eg, vertebral body, femur) Social History Social History Type Response Smoking Status Never smoker; Type: Cigarettes; Previous treatment: None; Exposure to Tobacco Smoke None; Cigarette Smoking Last 365 Days No; Reg Smoking Cessation Counseling No entered on: 03/27/18 Assessment and Plan Extracted from: Title: Interventional Radiology Author: Letty Murcia NP Date: 03/28/18 Interventional Radiology Consultation Reason for consultation: bone marrow biopsy Referring Physician: Yoan Amador NP History of Present Illness: Lisy Betts is a 68 year old female with past medical history of chronic lymphocytic leukemia, pulmonary embolism, anemia, obesity, obstructive sleep apnea, and recent pneumo ceci. She was admitted on 03/27/18 with fever, cough, and recent pneumonia. Interventional Radiology is consulted for bone marrow biopsy. Past Medical History: chronic lymphocytic leukemia pulmonary embolism anemia recent pneumonia obesity obstructive sleep apnea Past Surgical HIstory: ORIF of left ankle fracture hernia repair with mesh hysterectomy removal of benign tumor of left breast Social History: She is retired. 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 She lives alone. She has never smoked, drank alcohol, or used street drugs. Family History: father with pancreatic cancer, hypertension mom with dementia siblings alive and well 2 children alive and well Allergies Reviewed: Allergies: cefTRIAXone, penicillins, predniSONE Current Medications: Medications (6) Active Scheduled Meds (4): 03/28/18 docusate 100 mg PO BID 03/28/18 meropenem (Merrem) 500 mg IVPB Q12H 03/27/18 naproxen 500 mg PO [id number] 03/27/18 vancomycin 1,000 mg IVPB Q12H Unscheduled Meds: None PRN Meds (2): 03/28/18 benzonatate (Tessalon Perles) 100 mg PO TID 03/27/18 ondansetron 4 mg IVP Q6H One Time Meds: None Continuous Infusions: None Labs: 24hr Labs 03/27 2241 Glucose Lvl 147 H BUN 9 Creatinine Lvl 0.66 Sodium Lvl 143 Potassium Lvl 3.5 Chloride Lvl 109 CO2 26 AGAP 11.5 Calcium Lvl 8.6 eGFR 92 Magnesium Lvl 2.2 Phosphorus 3.7 WBC 12.5 H RBC 2.21 L Hgb 7.5 L Hct 21.9 L MCV 99.2 H MCH 33.8 H MCHC 34.1 RDW 22.1 H Platelet 40 L MPV 10.0 PT 13.6 INR 1.04 PTT 29.3 Segs 2.0 L Bands 0.0 Lymphocytes 97.0 H Atypical Lymphs 0.0 Monocytes 0.0 L Eosinophils 1.0 Segs-Bands # 0.2 L Lymphocytes # 12.1 H Monocytes # 0.0 Eosinophils # 0.1 INR: 1.04 (03/27/18 22:41:00 CDT)No qualifying data available. Imaging Studies: 03/27/18 CXR - Lines, tubes and hardware: None. Lungs and pleura: No pulmonary or pleural based abnormality is identified. Pulmonary vascularity is normal. Heart and mediastinum: The heart size is normal for technique. The mediastinal contours are normal. Bones: No change from prior exam. IMPRESSION: No acute cardiopulmonary abnormality. Review of Systems: Constitutional Symptoms: + fevers at home prior to admission, + malaise Eyes: no visual changes, + wears glasses Ears, Nose, Mouth, Throat: no dysphagia, no hearing deficit Cardiovascular: no chest pain, no palpitations Respiratory: + cough, + recent pneumonia, + recent pulmonary embolism,+ WILLI Gastorintenstinal: no nausea, no vomiting, no abdominal pain Genitourinary: no voiding difficulties Musculoskeletal: no arthralgia, no myalgia, no stiffness Integumentary: no rash, no hives Neurological: + weakness, no seizures Psychiatry: no anxiety, no depression, no insomnia Endocrine: + obesity, no diabetes Physical Examination: Vitals Tmp(F) Tmp(C) Ttype BP MAP Pulse RR SpO2 FIO2 ETCO2 03/28 08:17 97.6 36.44 axil 132/83 --- 69 18 99 --- --- 03/28 04:13 98 36.67 oral 101/57 --- 66 18 97 --- --- 03/28 00:09 98.6 37.00 oral 144/82 --- 74 18 98 --- --- 03/27 19:44 98.8 37.11 oral 143/70 --- 68 18 97 --- --- 03/27 18:20 98.9 37.17 oral 149/85 --- 89 18 97 --- --- 24 Hr Tmax: 98.9F (37.17c) at 03/27 18:20 Vital Signs are the last 5 in the past 48 hours. 24 Hr Tmin: 97.6F (36.44c) at 03/28 08:17 Weights are the last 5 in 60 days, plus initial. Date Wt(kg) Wt(lb) Ht(cm) Ht(in) Method BMI BSA 03/27 (initial) 99.09 218.00 160.02 63.00 Measured 38.7 2.10 Most Recent Scores: 03/28/18 Pain Intensity NRS (0-10) 0 03/28/18 [place] Coma Score 15 03/27/18 Cai Cox Fall Score 5 03/27/18 José Miguel Score 21 Lines, Tubes, and Drains: 03/27/2018 21:27 Peripheral Lines: Forearm Left 20 gauge Over the needle catheter General: Active, alert, well developed, well nourished, in no acute distress Head: Normocephalic, atraumatic Eyes: sclera is clear Hearing: appears normal to spoken voice Speech: Adequate vocabulary, no impediments Nose: Lequire nasal turbinates, septum midline, no drainage or deformities Mouth: moist mucous membranes, dentition is adequate Neck: Supple, without JVD Resp: even and non labored, but diminished bilaterally CV: RRR, without murmurs, rubs or gallops ABD: large, soft, non tender with positive bowel sounds x 4 quads Back/Extremities: lower extremities with a trace of edema Neuro: She is alert and oriented and follows simple commands. Skin: Clear, no rashes or jaundice. Pallor is noted. Impression: 1. chronic lymphocytic leukemia 2. anemia 3. thrombocytopenia 4. history of pulmonary embolism (off Xarelto x 1 week) 5. recent pneumonia 6. obstructive sleep apnea Plan: Plan is for image guided bone marrow biopsy under moderate sedation in Interventional Radiology. Benefits, risks, and alternatives were discussed with patient. She verbalizes understanding and c onsents to proceed. She has been NPO since midnight in preparation for her procedure. THANK YOU FOR CONSULTING INTERVENTIONAL RADIOLOGY. IF YOU HAVE ANY QUESTIONS, PLEASE CONTACT [phone]. Extracted from: Title: History and Physical Author: Cl Bains MD Date: 6/19/18 1.Healthcare acquired pneumonia Patienthas productive cough, denies respiratory distress, Hemoptysis start vancomycin 1 mg twice daily andmeropenem 500 mg3 times daily Repeat chest x-ray Ordered: Chest 1view DX, 03/27/18 19:58:00 CDT, Routine ONCE, Respiratory distress, PNA , Transport by Bed, Not , Patient has IV No, None, No Isolation/ Standard Precautions 2.CLL (chronic lymphocytic leukemia) Stage II CLL Hematology consult in the morning Ordered: Admit/Condition, 03/27/18 19:39:00 CDT, Status: Inpatient, Acute, Expected LOS : 3 or Greater Midnights, Alisha Alexander MD, Admit MD Review/Approve Yes, Isolation: No Isolation/Standard Precautions Chest 1view DX, 03/27/18 19:58:00 CDT, Routine ONCE, Respiratory distress, PNA , Transport by Bed, Not , Patient has IV No, None, No Isolation/ Standard Precautions 3.Anemia of chronic disease Pending CBC. Transfuse if hemoglobin less than 7 4.Thrombocytopenia Transfuse ifplateletcount less than 20 K 5.Chronic pulmonary embolism Off anticoagulation due to hemoptysis and thrombocytopenia. Patient denies hemoptysis Consider to resumeXarelto SCD, consider starting Lovenox ifplatelet countis stable Pending chemotherapy
[2018-04-27 11:44] LABS: Absolute Lymphocytes (CBC) 21.2 K/uL (0.7-4.9); Absolute Monocytes 0.1 K/uL (0.1-1.3); Absolute Neutrophil 0.4 K/uL (1.8-8.0); Basophils % 0.1 % (0-1.3); Eosinophils % 0.6 % (0-4.4); Lymphocytes % 96.6 % (15.3-44.8); MCH 34.5 pg (27.0-35.0); MCV 102.4 fL (80-100); MPV 10.4 fL (7.6-11.3); Monocytes % 0.7 % (3.3-12.3); RBC Red Blood Cell Count 1.54 M/uL (3.86-4.86)
[2018-04-27 12:14] LABS: Hematocrit 15.7 % (36.0-45.0)
[2018-04-27 12:31] LABS: BUN Blood Urea Nitrogen 10 mg/dL (7-18); Bicarbonate 27 mmol/L (21-32); Ferritin 381.7 ng/mL (8-388); Folic Acid, (Folate) > 20.0 ng/mL (3.1-17.5); Glucose Level 102 mg/dL (74-106); Sodium Level 144 mmol/L (136-145); Transferrin 236 mg/dL (200-360)
--- NOTE | 2018-04-27 13:17 | EDPHYS ---
Physician Documentation [facility] Name: Lisy Betts Age: 68 yrs Sex: Female : 1950 Arrival Date: 04/27/2018 Time: 11:04 Bed 14 Private MD: Bertin Hamm ED Physician Gareth Huynh HPI: 04/27 11:42 This 68 yrs old Female presents to ER via Ambulatory with complaints of rn Anemia. 11:42 Reports sent in for blood transfusion, has hx of CLL, sees Dr. Snider, last rn transfusion 1 month ago, + generalized fatigue and weakness, no syncope/sob. . Onset: The symptoms/episode began/occurred at an unknown time. Severity of symptoms: At their worst the symptoms were mild in the emergency department the symptoms are unchanged. The patient has experienced similar episodes in the past. The patient has not recently seen a physician. Historical: - Allergies: 11:16 PENICILLINS; jl7 11:16 ceftriaxone; jl7 11:16 Prednisone; jl7 - Home Meds: 11:16 None [Active]; jl7 - PMHx: 11:16 CLL; Pulmonary Embolism; UTI; jl7 - PSHx: 11:16 abdominal hernia repair; left ankle; jl7 11:16 Hysterectomy; jl7 - Immunization history:: Adult Immunizations up to date. - Social history:: Smoking status: Patient/guardian denies using tobacco. - Ebola Screening: : No symptoms or risks identified at this time. - Family history:: not pertinent. - Hospitalizations: : No recent hospitalization is reported. ROS: 11:42 Constitutional: Negative for fever, chills, and weight loss, Eyes: Negative for injury, rn pain, redness, and discharge, Neck: Negative for injury, pain, and swelling, Cardiovascular: Negative for chest pain, palpitations, and edema, Respiratory: Negative for shortness of breath, cough, wheezing, and pleuritic chest pain, Abdomen/GI: Negative for abdominal pain, nausea, vomiting, diarrhea, and constipation, Back: Negative for injury and pain, MS/Extremity: Negative for injury and deformity, Skin: Negative for injury, rash, and discoloration, Neuro: Negative for headache, numbness, tingling, and seizure. Exam: 11:42 Constitutional: This is a well developed, well nourished patient who is awake, alert, rn and in no acute distress. Head/Face: Normocephalic, atraumatic. Eyes: pale conjunctivae Cardiovascular: Regular rate and rhythm with a normal S1 and S2. No gallops, murmurs, or rubs. Normal PMI, no JVD. No pulse deficits. Respiratory: Lungs have equal breath sounds bilaterally, clear to auscultation and percussion. No rales, rhonchi or wheezes noted. No increased work of breathing, no retractions or nasal flaring. Abdomen/GI: Soft, non-tender, with normal bowel sounds. No distension or tympany. No guarding or rebound. No evidence of tenderness throughout. MS/ Extremity: Pulses equal, no cyanosis. Neurovascular intact. Full, normal range of motion. Equal circumference. Neuro: Awake and alert, GCS 15, oriented to person, place, time, and situation. Cranial nerves II-XII grossly intact. Motor strength 5/5 in all extremities. Sensory grossly intact. Cerebellar exam normal. Normal gait. Vital Signs: 11:16 BP 112 / 66; Pulse 88; Resp 16 S; Temp 99(O); Pulse Ox 96% on R/A; Weight 97.98 kg (R); jl7 Height 5 ft. 3 in. (160.02 cm) (R); Pain 0/10; 12:48 BP 113 / 63; Pulse 70; Resp 18; Pulse Ox 97% on R/A; mb3 13:53 BP 125 / 59; Pulse 87; Resp 18; Pulse Ox 97% on R/A; mb3 15:00 BP 127 / 60; Pulse 71; Resp 18; Pulse Ox 100% on R/A; mb3 16:03 BP 149 / 95; Pulse 80; Resp 18; Pulse Ox 99% on R/A; mb3 16:35 BP 124 / 61; Pulse 71; Resp 18; Temp 98.8(O); Pulse Ox 100% on R/A; mb3 18:23 BP 124 / 74; Pulse 81; Resp 18; Temp 98.8(O); Pulse Ox 99% on R/A; mb3 22:37 BP 105 / 74; Pulse 64; Resp 17 S; Pulse Ox 100% on R/A; jd3 11:16 Body Mass Index 38.26 (97.98 kg, 160.02 cm) jl7 MDM: 11:20 Patient medically screened. rn 13:15 Differential Diagnosis anemia. Data reviewed: vital signs, nurses notes, lab test rn result(s), and as a result, I will admit patient. Counseling: I had a detailed discussion with the patient and/or guardian regarding: the historical points, exam findings, and any diagnostic results supporting the discharge/admit diagnosis, lab results, the need for further work-up and treatment in the hospital. ED course: Pt with anemia, CLL, consulted with Dr. Snider, states ok to use regular blood, no platelets at this time.. 13:52 ED course: Initially was going to admit patient, spoke with Dr. Espitia who spoke with rn Dr. Snider again, states ok to transfuse here and go home after.. 16:45 ED course: Blood started, pt given a recliner, more comfortable. . rn 04/27 11:28 Order name: Type And Screen rn 04/27 11:28 Order name: CBC with Diff; Complete Time: 13:48 04/27 11:28 Order name: Basic Metabolic Panel; Complete Time: 12:43 04/27 11:28 Order name: Folic Acid,Serum (folate); Complete Time: 12:43 04/27 11:28 Order name: B12; Complete Time: 12:43 rn 04/27 11:28 Order name: Retic Count; Complete Time: 13:48 04/27 11:28 Order name: TRANSFERRIN SAT/IRON BINDING; Complete Time: 12:43 04/27 11:28 Order name: Iron Level; Complete Time: 12:43 rn 04/27 11:28 Order name: Ferritin rn 04/27 12:16 Order name: Manual Differential; Complete Time: 13:48 EDHI 04/27 12:48 Order name: Bb Add On bd 04/27 13:03 Order name: Packed RBC Leukored -1 EDHI 04/27 13:48 Order name: LDH; Complete Time: 18:30 rn 04/27 13:50 Order name: LFT's; Complete Time: 18:30 rn 04/27 11:28 Order name: IV Start; Complete Time: 12:38 rn 04/27 14:43 Order name: Direct Antiglobulin Test; Complete Time: 18:30 [facility] 07/20 16:08 Order name: Diet Regular; Complete Time: 16:09 dh3 04/27 23:08 Order name: Hemoglobin; Complete Time: 08:18 fc 04/27 23:08 Order name: Hematocrit; Complete Time: 08:18 fc Administered Medications: No medications were administered Disposition: 04/27/18 18:31 Discharged to Home. Impression: Anemia. - Condition is Stable. - Discharge Instructions: Anemia, Nonspecific. - Medication Reconciliation Form, Thank You Letter, Antibiotic Education, Prescription Opioid Use form. - Follow up: Private Physician; When: As needed; Reason: Recheck today's complaints, Re-evaluation by your physician. - Problem is an ongoing problem. - Symptoms have improved. Signatures: Dispatcher [employer] EDMS Gareth Huynh MD MD rn Leal, Jahala, RN RN jl7 Artis Ware RN RN jd3 Corrections: (The following items were deleted from the chart) 13:53 13:17 Hospitalization Ordered by Gabe Espitia MD for Observation. Preliminary diagnosis rn is Chronic lymphocytic leukemia; anemia. Bed requested for Telemetry/MedSurg (observation). Status is Observation. Condition is Stable. Problem is an ongoing problem. Symptoms are unchanged. UTI on Admission? No. rn 04/28 00:05 04/27 18:31 04/27/2018 18:31 Discharged to Home. Impression: Anemia. Condition is jd3 Stable. Forms are Medication Reconciliation Form, Thank You Letter, Antibiotic Education, Prescription Opioid Use. Follow up: Private Physician; When: As needed; Reason: Recheck today's complaints, Re-evaluation by your physician. Problem is an ongoing problem. Symptoms have improved. rn
--- NOTE | 2018-04-27 13:17 | ER ---
Nurse's Notes [facility] Name: Lisy Betts Age: 68 yrs Sex: Female : 1950 Arrival Date: 04/27/2018 Time: 11:04 Bed 14 Private MD: Bertin Hamm Diagnosis: Anemia Presentation: 04/27 11:12 Presenting complaint: Patient states: Doctor sent for Hgb of 5.1. Transition of care: jl7 patient was not received from another setting of care. Onset of symptoms was April 27, 2018. Risk Assessment: Do you want to hurt yourself or someone else? Patient reports no desire to harm self or others. Initial Sepsis Screen: Does the patient meet any 2 criteria? No. Patient's initial sepsis screen is negative. Does the patient have a suspected source of infection? No. Patient's initial sepsis screen is negative. Care prior to arrival: None. 11:12 Method Of Arrival: Ambulatory [facility] 11:12 Acuity: ARNOLD 3 jl7 Triage Assessment: 11:16 General: Appears in no apparent distress. uncomfortable, Behavior is calm, cooperative, jl7 appropriate for age. Pain: Denies pain. Derm: Skin is dry, Skin is pale, Skin temperature is warm. Historical: - Allergies: 11:16 PENICILLINS; jl7 11:16 ceftriaxone; jl7 11:16 Prednisone; jl7 - Home Meds: 11:16 None [Active]; jl7 - PMHx: 11:16 CLL; Pulmonary Embolism; UTI; jl7 - PSHx: 11:16 abdominal hernia repair; left ankle; jl7 11:16 Hysterectomy; jl7 - Immunization history:: Adult Immunizations up to date. - Social history:: Smoking status: Patient/guardian denies using tobacco. - Ebola Screening: : No symptoms or risks identified at this time. - Family history:: not pertinent. - Hospitalizations: : No recent hospitalization is reported. Screenin:40 Abuse screen: Denies threats or abuse. Nutritional screening: No deficits noted. mb3 Tuberculosis screening: No symptoms or risk factors identified. Fall Risk None identified. Assessment: 11:40 General: Appears in no apparent distress. comfortable, obese, Behavior is calm, mb3 cooperative, appropriate for age. Pain: Denies pain. Neuro: No deficits noted. Neuro: Reports weakness for the last few weeks. Cardiovascular: Heart tones present Capillary refill < 3 seconds Patient's skin is warm and dry. Pulses are all present. Respiratory: Airway is patent Respiratory effort is even, unlabored, Respiratory pattern is regular, symmetrical. GI: Abdomen is obese, Bowel sounds present X 4 quads. : No signs and/or symptoms were reported regarding the genitourinary system. EENT: No signs and/or symptoms were reported regarding the EENT system. Derm: old bruising on arms from previous blood draws and IV's. 15:01 Reassessment: No changes from previously documented assessment. Patient and/or family mb3 updated on plan of care and expected duration. Pain level reassessed. Patient is alert, oriented x 3, equal unlabored respirations, skin warm/dry/pink. Patient denies pain at this time. 16:03 Reassessment: Patient appears in no apparent distress at this time. Patient and/or mb3 family updated on plan of care and expected duration. Pain level reassessed. Patient is alert, oriented x 3, equal unlabored respirations, skin warm/dry/pink. 16:15 Reassessment: Pt provided with recliner chair, assisted moving to chair. mb3 18:24 Reassessment: Patient appears in no apparent distress at this time. No changes from mb3 previously documented assessment. Patient and/or family updated on plan of care and expected duration. Pain level reassessed. Patient is alert, oriented x 3, equal unlabored respirations, skin warm/dry/pink. 21:47 Reassessment: Spoke with Dr Huynh. Order clarification: Give 2 units of PRBC. Obtain fc H/H post transfusion but pt does not have to wait for results. Ok to discharge once collected. 22:03 Reassessment: Patient appears in no apparent distress at this time. Patient and/or jd3 family updated on plan of care and expected duration. Pain level reassessed. Patient is alert, oriented x 3, equal unlabored respirations, skin warm/dry/pink. report received from Konrad SOUZA. waiting to redraw blood after blood transfusion. Patient denies pain at this time. Patient states feeling better. 22:38 Reassessment: Patient appears in no apparent distress at this time. No changes from jd3 previously documented assessment. Patient and/or family updated on plan of care and expected duration. Pain level reassessed. Patient is alert, oriented x 3, equal unlabored respirations, skin warm/dry/pink. 23:16 Reassessment: Patient appears in no apparent distress at this time. Patient and/or jd3 family updated on plan of care and expected duration. Pain level reassessed. Patient is alert, oriented x 3, equal unlabored respirations, skin warm/dry/pink. repeat H\T\H sent. waiting for result to discharge pt. Patient denies pain at this time. Patient states feeling better. 04/28 00:03 Reassessment: Patient appears in no apparent distress at this time. Patient and/or jd3 family updated on plan of care and expected duration. Pain level reassessed. Patient is alert, oriented x 3, equal unlabored respirations, skin warm/dry/pink. pt reported understanding of discharge instructions. assisted to front of ER with wheelchair. Patient denies pain at this time. Patient states feeling better. Vital Signs: 04/27 11:16 BP 112 / 66; Pulse 88; Resp 16 S; Temp 99(O); Pulse Ox 96% on R/A; Weight 97.98 kg (R); jl7 Height 5 ft. 3 in. (160.02 cm) (R); Pain 0/10; 12:48 BP 113 / 63; Pulse 70; Resp 18; Pulse Ox 97% on R/A; mb3 13:53 BP 125 / 59; Pulse 87; Resp 18; Pulse Ox 97% on R/A; mb3 15:00 BP 127 / 60; Pulse 71; Resp 18; Pulse Ox 100% on R/A; mb3 16:03 BP 149 / 95; Pulse 80; Resp 18; Pulse Ox 99% on R/A; mb3 16:35 BP 124 / 61; Pulse 71; Resp 18; Temp 98.8(O); Pulse Ox 100% on R/A; mb3 18:23 BP 124 / 74; Pulse 81; Resp 18; Temp 98.8(O); Pulse Ox 99% on R/A; mb3 22:37 BP 105 / 74; Pulse 64; Resp 17 S; Pulse Ox 100% on R/A; jd3 11:16 Body Mass Index 38.26 (97.98 kg, 160.02 cm) jl7 ED Course: 11:04 Patient arrived in ED. mr 11:05 Bertin Hamm MD is Private Physician. mr 11:13 Triage completed. jl7 11:16 Arm band placed on right wrist. jl7 11:19 Konrad Rao, RN is Primary Nurse. mb3 11:20 Gareth Huynh MD is Attending Physician. rn 11:30 Inserted saline lock: 20 gauge in right antecubital area, using aseptic technique. mb3 Blood collected. 11:42 Patient has correct armband on for positive identification. Bed in low position. Call mb3 light in reach. Side rails up X 1. 12:38 Ferritin Sent. mb3 13:16 Gabe Espitia MD is Hospitalizing Provider. rn 13:46 Given orange juice \T\ crackers. tm3 04/28 00:02 No provider procedures requiring assistance completed. IV discontinued, intact, jd3 bleeding controlled, No redness/swelling at site. Pressure dressing applied. Administered Medications: No medications were administered Outcome: 04/27 13:17 Decision to Hospitalize by Provider. rn 18:31 Discharge ordered by . rn 04/28 00:03 Discharged to home via wheelchair, with family. jd3 Condition: stable Discharge instructions given to patient, family, Instructed on discharge instructions, follow up and referral plans. Demonstrated understanding of instructions, follow-up care. 00:05 Patient left the ED. jd3 Signatures: Agustin Cuellar tm3 Martha Richardson mr PearsonAmi, RN HARLEY fc Gareth Huynh MD MD rn Leal, Jahala, RN RN barbara7 Artis Ware RN RN jKonrad Bravo, RN RN mb3 Corrections: (The following items were deleted from the chart) 04/27 23:16 23:16 Reassessment: Patient appears in no apparent distress at this time. Patient jd3 and/or family updated on plan of care and expected duration. Pain level reassessed. Patient is alert, oriented x 3, equal unlabored respirations, skin warm/dry/pink. Patient denies pain at this time. Patient states feeling better. jd3
[2018-04-27 13:44] LABS: Blood Morphology Comment NOTED (NOT SEEN); Platelet Estimate DECR
[2018-04-27 13:45] LABS: Anisocytosis 2+
[2018-04-27 15:06] LABS: Albumin 3.1 g/dL (3.4-5.0); Bilirubin Direct 0.1 mg/dL (0-0.2); Bilirubin Total 0.2 mg/dL (0.2-1.0); Protein, Total 6.3 g/dL (6.4-8.2)
[2018-04-27] MEDS ORDERED: NA CHLORIDE 0.9% 500 ML ONE (16:15)
[2018-04-27 23:25] LABS: Hematocrit 21.6 % (36.0-45.0)
[2018-04-28 00:29] VITALS: TEMP 98.8
[2018-04-28 00:32] VITALS: BP 105/74; O2SAT 100
== END 2018-04-28 00:05 | disposition home or self-care (01) ==
LOC: ER 11:02 → UNDOADMOB 13:17 → ERHOLD 13:17 → ER 04-28 00:05
PROC: 30233N1 Transfusion of Nonautologous Red Blood Cells into Peripheral Vein, Percutaneous Approach (ICD-10-PCS; principal; 2018-04-27)
DX: D64.9 Anemia, unspecified (principal); Z88.0 Allergy status to penicillin; Z88.8 Allergy status to other drugs, medicaments and biological substances; C91.10 Chronic lymphocytic leukemia of B-cell type not having achieved remission; N39.0 Urinary tract infection, site not specified; Z86.711 Personal history of pulmonary embolism
CPT/HCPCS: 36415; 36430; 80048; 80076; 82607; 82728; 82746; 83540; 83615; 84466; 85014; 85018; 85025; 85044; 86850; 86880; 86900; 86901; 99283; P9016 ×2

== ENCOUNTER 2018-05-11 00:32 | Observation (INO) | payer OTHER ==
--- OUTSIDE RECORDS SUMMARY | 2018-05-11 00:36 | XMS REPORT | Continuity of Care Document ---
:1950 Author Organization Interface Problems Problem Status Onset Classification Date Comments Source Date Reported CHRONIC Active [facility] LYMPHOBLASTIC 8 Medical [facility] Medications Medication Details Route Status Patient Ordering Order Source Instructions Provider Date Melatonin 3 MG 3 mg, 1 tab, No Longer [facility] Extended Route: PO, Active 018 Medical Release Tablet Drug Form: Center TAB, Dosing Weight 99.545, kg, Bedtime, Start date: 03/31/18 21:00:00 CDT, Duration: 30 day, Stop date: 04/29/18 21:00:00 CDTNotes: (Same as: Melatonin) Levaquin 750 mg, 1 tab, No Longer [facility] Route: PO, Active 018 Medical Drug form: Center TAB, [id number], Dosing Weight 99.545, kg, Start date: 03/30/18 20:00:00 CDT, Duration: 5 day, Stop date: 04/03/18 20:00:00 CDT, ABX Indication: PneumoniaNotes : Do not give w/antacids, dairy pdt & minerals Take 1 hr before or 2 hr after dairy products Fentanyl 50 microgram, Inactive [facility] Route: IV, 018 Medical ONCE, Dosing Center Weight 99.545, kg, Start date: 03/29/18 9:31:00 CDT, Stop date: 03/29/18 9:31:00 CDT Midazolam 1 mg, Route: Inactive [facility] IV, ONCE, 018 Medical Dosing Weight Center 99.545, kg, Start date: 03/29/18 9:16:00 CDT, Stop date: 03/29/18 9:16:00 CDT Fentanyl 50 microgram, Inactive [facility] Route: IV, 018 Medical ONCE, Dosing Center Weight 99.545, kg, Start date: 03/29/18 9:16:00 CDT, Stop date: 03/29/18 9:16:00 CDT Ibuprofen 200 200 mg, 1 tab, Inactive [facility] MG Oral Tablet Route: PO, 018 Medical Drug form: [place] TAB, ONCE, Dosing Weight 99.545, kg, Start date: 03/28/18 20:45:00 CDT, Stop date: 03/28/18 20:45:00 CDTNotes: (Same as: Advil) Give with food. Tylenol 650 mg, 2 tab, No Longer [facility] Route: PO, Active 018 Medical Drug form: [place] TAB, Q6H, Dosing Weight 99.545, kg, PRN For Temp > 100.4 F, Start date: 03/28/18 14:31:00 CDT, Duration: 30 day, Stop date: 04/27/18 14:30:00 CDTNotes: Do not exceed 4 gm/day. (Same as: Tylenol) Merrem 500 mg, Route: No Longer [facility] IVPB, Drug Active 018 Medical form: PDR/INJ, Center [id number], Dosing Weight 99.545, kg, CrCL=30 -49 ml/min, Extended infusion, infuse over 3 hours, Start date: 03/28/18 9:00:00 CDT, Stop date: 04/06/18 19:00:00 CDT, ABX Indication: PneumoniaNotes : Same as Merrem MEDICATION WASTE Product Size: 500 mg Product Wasted: ___ mg Docusate 100 mg, 1 cap, No Longer [facility] Route: PO, Active 018 Medical Drug form: [place] CAP, BID, Dosing Weight 99.545, kg, Start date: 03/28/18 9:00:00 CDT, Duration: 30 day, Stop date: 04/26/18 17:00:00 CDTNotes: (Same as: Colace) (Do Not Crush) Tessalon 100 mg, 1 cap, No Longer [facility] Route: PO, Active 018 Medical Drug form: [place] CAP, TID, Dosing Weight 99.545, kg, PRN Cough, Start date: 03/28/18 0:59:00 CDT, Duration: 30 day, Stop date: 04/27/18 0:58:00 CDTNotes: (Same As: Tessalon Perles) "Do Not Crush" Vancomycin 1.25 gm, No Longer [facility] Route: IVPB, Active 018 Medical [id number], Center Dosing Weight 99.545, kg, Start date: 03/27/18 21:00:00 CDT, Stop date: 04/06/18 9:00:00 CDT, ABX Indication: PneumoniaNotes : TIME CRITICAL MEDICATION (Same As: Vancocin) Infusion rate 2001 mg: infuse over 2.5 hours For adult patients only: Round to nearest 250 mg per Medical Staff approval MEDICATION WASTE Product Size: 1000 mg Product Wasted: ___ mg Zosyn 3.375 gm, Inactive [facility] Route: IVPB, 018 Medical Drug form: Center PDR/INJ, [id number], Dosing Weight 99.545, kg, CrCl >=20 ml/min infuse over 4 hours, Start date: 03/27/18 20:00:00 CDT, Duration: 10 day, Stop date: 04/06/18 12:00:00 CDT, ABX Indication: PneumoniaNotes : (Same as: Zosyn) Dosing based on Piperacillin component MEDICATION WASTE Product Size: 3375 mg Product Wasted: ___ mg Naproxen 500 mg, 1 tab, No Longer [facility] Route: PO, Active 018 Medical Drug form: Center TAB, [id number], Dosing Weight 99.545, kg, Start date: 03/27/18 20:00:00 CDT, Duration: 30 day, Stop date: 04/26/18 8:00:00 CDTNotes: (Same as: Naprosyn) Take with food. Merrem 500 mg, Route: Inactive [facility] IVPB, Drug 018 Medical form: PDR/INJ, Center [id number], Dosing Weight 99.545, kg, CrCL=30 -49 ml/min, Extended infusion, infuse over 3 hours, Start date: 03/27/18 20:00:00 CDT, Duration: 10 day, Stop date: 04/06/18 12:00:00 CDT, ABX Indication: PneumoniaNotes : Same as Merrem MEDICATION WASTE Product Size: 500 mg Product Wasted: ___ mg Ondansetron 4 mg, 2 mL, No Longer [facility] Route: IVP, Active 018 Medical Drug [...] Source type Reported penicillins Assertion Drug Active [facility] predniSONE Assertion Drug Active [facility] cefTRIAXone Assertion Drug Active [facility] Immunizations Immunization Date Given Site Status Last Updated Comments Source Results Order Name Results Value Reference Date Interpretation Comments Source Range CHEM PANEL A/G Ratio 0.8 0.7 - 1.6 04/[address] CHEM PANEL B/C Ratio 20 6 - 25 04/[address] CHEM PANEL Globulin 3.6 g/dL 2.7 - 4.2 04/[address] CHEM PANEL AGAP 10.2 meq/L 10.0 - 04/01 [facility] 20.0 [facility] CHEM PANEL eGFR 92 04/01 Result Comment: The eGFR is calculated using the CKD-EPI formula. In most young, healthy individuals the eGFR will be >90 mL/ min/1.73m2. The eGFR declines with age. An eGFR of 60-89 may be normal in [facility] mL/min/1.73 Formerly named [facility] some populations, particularly the elderly, for whom the CKD-EPI formula has not been extensively validated. Use of the eGFR is not recommended in the following populations: [address] Individuals with unstable creatinine concentrations, including [...] Phos 67 unit/L 39 - 136 04/[address] CHEM PANEL Bili Total 0.3 mg/dL 0.2 - 1.3 04/[address] CHEM PANEL ALT 16 unit/L 0 - 65 04/[address] CHEM PANEL AST 12 unit/L 0 - 37 04/[address] CHEM PANEL Albumin Lvl 2.8 g/dL 3.5 - 5.0 04/[address] CHEM PANEL Creatinine 0.66 mg/dL 0.50 - 04/01 [facility] Lvl 1.40 [facility] CHEM PANEL Sodium Lvl 141 meq/L 135 - 145 04/[address] CHEM PANEL Total 6.4 g/dL 6.4 - 8.4 04/[address] CHEM PANEL Calcium Lvl 8.6 mg/dL 8.5 - 10.5 04/[address] CHEM PANEL Potassium 4.2 meq/L 3.5 - 5.1 04/01 [facility] [address] [place] [address] CHEM PANEL Chloride Lvl 109 meq/L 95 - 109 04/[address] CHEM PANEL CO2 26 meq/L 24 - 32 04/[address] CHEM PANEL BUN 13 mg/dL 7 - 22 04/[address] CHEM PANEL Glucose Lvl 105 mg/dL 70 - 99 04/[address] HEMATOLOGY Smudge Moderate None Seen 04/01 [facility] [address] [place] [address]* [place] (04/01/18 4:40 AM) HEMATOLOGY Lymphocytes 95.0 % 20.0 - 04/01 [facility] 40.0 [facility] HEMATOLOGY Bands 0.0 % 0.0 - 11.0 04/[address] HEMATOLOGY Anisocyte 1+ None Seen 04/01 [facility] [address] [place] [address]* [place] (04/01/18 4:40 AM) HEMATOLOGY Macrocyte 1+ None Seen 04/01 [facility] [address] [place] [address]* [place] (04/01/18 4:40 AM) HEMATOLOGY Plt Morph Normal 04/01 [facility] [address] [place] [address] (04/01/18 4:40 AM) [place] HEMATOLOGY Tot Cell Ct 100 04/[address] HEMATOLOGY Microcyte 1+ None Seen 04/01 [facility] 2018 Medical *ABN* Center (04/01/18 4:40 AM) HEMATOLOGY Monocytes 2.0 % 2.0 - 12.0 04/01 [facility] HEMATOLOGY Atypical 0.0 % <=0.0 % 04/01 [facility] Lymphs [facility] HEMATOLOGY Segs-Bands # 0.5 K/CMM 1.5 - 8.1 04/[address] HEMATOLOGY Lymphocytes 16.4 K/CMM 1.0 - 5.5 04/01 [facility] # [facility] HEMATOLOGY Segs 3.0 % 45.0 - 04/01 [facility] 75.0 [facility] HEMATOLOGY Monocytes # 0.3 K/CMM 0.0 - 0.8 04/01 [facility] HEMATOLOGY RBC 2.30 M/CMM 4.20 - 04/01 [facility] 5.40 [facility] HEMATOLOGY MCV 100.1 fL 80.0 - 04/01 [facility] 98.0 [facility] HEMATOLOGY MCH 33.9 pg 27.0 - 04/01 [facility] 31.0 [facility] HEMATOLOGY Platelet 44 K/CMM 133 - 450 04/01 [facility] HEMATOLOGY MPV 11.6 fL 7.4 - 10.4 04/01 [facility] HEMATOLOGY MCHC 33.8 g/dL 32.0 - 04/01 [facility] 36.0 [facility] HEMATOLOGY RDW 22.4 % 11.5 - 04/01 [facility] 14.5 [facility] HEMATOLOGY Hgb 7.8 g/dL 12.0 - 04/01 [facility] 16.0 [facility] HEMATOLOGY Hct 23.0 % 36.0 - 04/01 [facility] 48.0 [facility] HEMATOLOGY WBC 17.3 K/CMM 3.7 - 10.4 04/[address] [place] [address] CHEM PANEL B/C Ratio 25 6 - 25 03/[address] CHEM PANEL Globulin 3.7 g/dL 2.7 - 4.2 03/[address] CHEM PANEL AGAP 13.1 meq/L 10.0 - 03/31 [facility] 20.0 [facility] CHEM PANEL A/G Ratio 0.8 0.7 - 1.6 03/[address] CHEM PANEL eGFR 97 03/31 Result Comment: The eGFR is calculated using the CKD-EPI formula. In most young, healthy individuals the eGFR will be >90 mL/ min/1.73m2. The eGFR declines with age. An eGFR of 60-89 may be normal in [facility] mL/min/1.73 some populations, particularly the elderly, for whom the CKD-EPI formula has not been extensively validated. Use of the eGFR is not recommended in the following populations: [place] [address] Center Individuals with unstable creatinine concentrations, including [...] Total 0.3 mg/dL 0.2 - 1.3 03/[address] CHEM PANEL ALT 16 unit/L 0 - 65 03/[address] CHEM PANEL AST 10 unit/L 0 - 37 03/[address] CHEM PANEL Total 6.5 g/dL 6.4 - 8.4 03/[address] CHEM PANEL Alk Phos 67 unit/L 39 - 136 03/[address] CHEM PANEL Albumin Lvl 2.8 g/dL 3.5 - 5.0 03/[address] CHEM PANEL BUN 14 mg/dL 7 - 22 03/[address] CHEM PANEL Glucose Lvl 100 mg/dL 70 - 99 03/[address] CHEM PANEL Sodium Lvl 144 meq/L 135 - 145 03/[address] CHEM PANEL Potassium 4.1 meq/L 3.5 - 5.1 03/31 [facility] [address] [place] [address] CHEM PANEL Creatinine 0.57 mg/dL 0.50 - 03/31 [facility] Lvl 1.40 [facility] CHEM PANEL CO2 25 meq/L 24 - 32 03/[address] CHEM PANEL Chloride Lvl 110 meq/L 95 - 109 03/[address] CHEM PANEL Calcium Lvl 8.9 mg/dL 8.5 - 10.5 03/[address] HEMATOLOGY Eosinophils 0.1 K/CMM 0.0 - 0.5 03/31 [facility] HEMATOLOGY Smudge Moderate None Seen 03/31 [facility] *ABN* Center (03/31/18 3:54 AM) HEMATOLOGY Anisocyte 1+ None Seen 03/31 [facility]* Center (03/31/18 3:54 AM) HEMATOLOGY Eosinophils 0.8 % 0.0 - 4.0 03/31 2017 [facility] HEMATOLOGY Monocytes # 0.1 K/CMM 0.0 - 0.8 03/31 [facility] HEMATOLOGY Lymphocytes 16.5 K/CMM 1.0 - 5.5 03/31 [facility] HEMATOLOGY Segs-Bands # 0.7 K/CMM 1.5 - 8.1 03/31 2017 [facility] HEMATOLOGY Basophils 0.1 % 0.0 - 1.0 03/31 2017 [facility] HEMATOLOGY Monocytes 0.5 % 2.0 - 12.0 03/[address] HEMATOLOGY Lymphocytes 94.4 % 20.0 - 03/31 [facility] 40.0 [facility] HEMATOLOGY Segs 4.2 % 45.0 - 03/31 [place] 75.0 [facility] HEMATOLOGY Plt Morph Normal 03/31 [facility] (03/31/18 3:54 AM) [place] HEMATOLOGY Hgb 7.4 g/dL 12.0 - 03/31 16.0 [facility] HEMATOLOGY RBC 2.21 M/CMM 4.20 - 03/31 [place] 5.40 [facility] HEMATOLOGY WBC 17.5 K/CMM 3.7 - 10.4 03/31 [facility] HEMATOLOGY Platelet 41 K/CMM 133 - 450 03/31 [facility] HEMATOLOGY RDW 21.9 % 11.5 - 03/31 [place] 14.5 [facility] HEMATOLOGY MCHC 33.6 g/dL 32.0 - 03/31 [place] 36.0 [facility] HEMATOLOGY MCV 99.9 fL 80.0 - 03/31 [facility] 98.0 [facility] HEMATOLOGY MCH 33.5 pg 27.0 - 03/31 [place] 31.0 [facility] HEMATOLOGY Hct 22.1 % 36.0 - 03/31 [place] 48.0 [facility] HEMATOLOGY MPV 11.1 fL 7.4 - 10.4 03/[address] CHEM PANEL eGFR 92 03/30 Result Comment: The eGFR is calculated using the CKD-EPI formula. In most young, healthy individuals the eGFR will be >90 mL/ min/1.73m2. The eGFR declines with age. An eGFR of 60-89 may be normal in [facility] mL/min/1.73 /2017 some populations, particularly the elderly, for whom the CKD-EPI formula has not been extensively validated. Use of the eGFR is not recommended in the following populations: [address] Individuals with unstable creatinine concentrations, including [...] Total 0.2 mg/dL 0.2 - 1.3 03/[address] CHEM PANEL ALT 18 unit/L 0 - 65 03/[address] CHEM PANEL Albumin Lvl 3.4 g/dL 3.5 - 5.0 03/[address] CHEM PANEL Total 6.7 g/dL 6.4 - 8.4 03/[address] CHEM PANEL Alk Phos 73 unit/L 39 - 136 03/[address] CHEM PANEL AST 9 unit/L 0 - 37 03/[address] CHEM PANEL Calcium Lvl 8.6 mg/dL 8.5 - 10.5 03/[address] CHEM PANEL CO2 25 meq/L 24 - 32 03/[address] CHEM PANEL Sodium Lvl 141 meq/L 135 - 145 03/[address] CHEM PANEL Creatinine 0.66 mg/dL 0.50 - 03/30 [facility] CHEM PANEL BUN 14 mg/dL 7 - 22 03/[address] CHEM PANEL Glucose Lvl 110 mg/dL 70 - 99 03/[address] CHEM PANEL Potassium 3.9 meq/L 3.5 - 5.1 03/30 [facility] CHEM PANEL Chloride Lvl 107 meq/L 95 - 109 03/30 [facility] CHEM PANEL A/G Ratio 1.0 0.7 - 1.6 03/30 [facility] CHEM PANEL Globulin 3.3 g/dL 2.7 - 4.2 03/[address] CHEM PANEL AGAP 12.9 meq/L 10.0 - 03/30 20.0 [facility] CHEM PANEL B/C Ratio 21 6 - 25 03/30 [facility] HEMATOLOGY MCHC 34.4 g/dL 32.0 - 03/30 36.0 [facility] HEMATOLOGY MCH 34.1 pg 27.0 - 03/30 31.0 [facility] HEMATOLOGY MPV 10.7 fL 7.4 - 10.4 03/[address] HEMATOLOGY Platelet 41 K/CMM 133 - 450 03/[address] HEMATOLOGY RDW 22.1 % 11.5 - 03/30 14.5 [facility] HEMATOLOGY MCV 99.2 fL 80.0 - 03/30 [facility] 98.0 [facility] HEMATOLOGY Hct 23.9 % 36.0 - 03/30 [place] 48.0 [facility] HEMATOLOGY Hgb 8.2 g/dL 12.0 - 03/30 16.0 [facility] HEMATOLOGY WBC 14.6 K/CMM 3.7 - 10.4 03/30 [facility] HEMATOLOGY RBC 2.41 M/CMM 4.20 - 03/30 5.40 [facility] HEMATOLOGY Segs 4.7 % 45.0 - 03/30 [place] 75.0 [facility] HEMATOLOGY Lymphocytes 93.5 % 20.0 - 03/30 [place] 40.0 [facility] HEMATOLOGY Monocytes 0.6 % 2.0 - 12.0 03/[address] HEMATOLOGY Eosinophils 1.1 % 0.0 - 4.0 03/[address] [place] [address] HEMATOLOGY Monocytes # 0.1 K/CMM 0.0 - 0.8 03/30 [facility] [address] [place] [address] HEMATOLOGY Basophils 0.1 % 0.0 - 1.0 03/[address] [place] [address] HEMATOLOGY Lymphocytes 13.7 K/CMM 1.0 - 5.5 03/[address] HEMATOLOGY Segs-Bands # 0.7 K/CMM 1.5 - 8.1 03/[address] HEMATOLOGY Anisocyte 1+ None Seen 03/[address]* [facility] (03/30/18 5:34 AM) HEMATOLOGY Smudge Moderate None Seen 03/[address]* [place] (03/30/18 5:34 AM) HEMATOLOGY Eosinophils 0.2 K/CMM 0.0 - 0.5 03/[address] HEMATOLOGY Plt Morph Normal 03/[address] (03/30/18 5:34 AM) [place] HEMATOLOGY Retic Auto 1.0 % 0.5 - 1.5 03/[address] HEMATOLOGY Eosinophils 0.1 K/CMM 0.0 - 0.5 03/[address] HEMATOLOGY Eosinophils 0.8 % 0.0 - 4.0 03/[address] Bone Marrow Bone Marrow EXAM: VIR Bone Marrow Biopsy with CT Guidance - [facility] Bio/Aspr CT Bio/Aspr MA /2017 - [facility] DATE: 03/29/2018 8:26 AM CDT This report was dictated by a [employer] Driver/Fellow. I have personally reviewed the images as Center well as the Resident's interpretation and agree with the findings. INDICATION: 68 years old Female with CLL. Read by: Luan Gunn MD Resident: Luan Gunn MD Dictated Date/time: 03/29/18 10:39 PROCEDURE(S) PERFORMED: CT guided bone marrow aspirate and trephine biopsy. Electronically Signed by: Fran Tobin MD 04/01/18 20:42 FINAL REPORT FACULTY: Fran Tobin MD RESIDENT/FELLOW/CT MANAGER: Luan Gunn M.D. ANESTHESIA/SEDATION: Moderate sedation PHYSICIAN [...] was present for the procedure. CHEM PANEL R-8-Uzhehbbs 3.5 mg/L 1.0 - 2.3 03/[address] CHEM PANEL LDH 165 unit/L 98 - 192 03/[address] CHEM PANEL Uric Acid 4.9 mg/dL 2.5 - 7.0 03/[address] HEMATOLOGY PB Smear Peripheral 03/28 [facility] Path blood smear /[address] [place] [address] macrocytic hypochromic anemia with slight polychromas ia, [...] findings are consistent with the history.CPT : 17885 CHEM PANEL Phosphorus 3.7 mg/dL 2.5 - 4.5 03/[address] CHEM PANEL Magnesium 2.2 mg/dL 1.8 - 2.4 03/28 [facility] Lvl [address] HEMATOLOGY Atypical 0.0 % <=0.0 % 03/28 [facility] Lymphs [address] HEMATOLOGY Bands 0.0 % 0.0 - 11.0 03/[address] HEMATOLOGY PTT 29.3 s 22.9 - 03/28 [facility] 35.8 [facility] HEMATOLOGY PT 13.6 s 12.0 - 03/28 [facility] 14. [facility] HEMATOLOGY INR 1.04 0.85 - 03/28 [facility] 1. [facility] Chest 1view Chest 1view EXAM: XR CHEST 1 VIEW 03/27 - [facility] DX - [facility] DATE: 03/27/2018 7:58 PM CDT Read by: [...] Date Comments Source Heart Rate 80 04/02/2018 [facility] Systolic (mm Hg) 120 04/02/2018 [facility] Diastolic (mm Hg) 71 04/02/2018 [facility] Temperature Oral (F) 98.9 F 04/02/2018 [facility] Respitory Rate 20 04/02/2018 [facility] Heart Rate 78 04/02/2018 [facility] Temperature Oral (F) 99.2 F 04/02/2018 [facility] Systolic (mm Hg) 113 04/02/2018 [facility] Diastolic (mm Hg) 67 04/02/2018 [facility] Systolic (mm Hg) 126 04/02/2018 [facility] Diastolic (mm Hg) 67 04/02/2018 [facility] Heart Rate 73 04/02/2018 [facility] Respitory Rate 18 04/02/2018 [facility] Temperature Oral (F) 98 F 04/02/2018 [facility] Respitory Rate 18 04/02/2018 [facility] BMI Calculated 38.88 03/27/2018 [facility] Weight 99.545 03/27/2018 [facility] Height 160.02 cm 03/27/2018 [facility] BMI Calculated 38.7 03/27/2018 [facility] Height 160.02 cm 03/27/2018 [facility] Weight 99.091 03/27/2018 [facility] Encounters Location Location Encounter Encounter Reason Attending ADM DC Status Source Details Type Number For Provider Date Date Visit [facility] [id number] Non 03/27 04/02 Nasir Reyez Physician /2017 [facility] Procedures Procedure Code Date Perfomer Comments Source 03/29/2018 [facility] Biopsy, bone, 03/29/2018 [facility] trocar, or [facility] needle; deep (eg, vertebral body, femur)
[2018-05-11] MEDS ORDERED: ASPIRIN 81 MG CHEWABLE TABLET ONE (01:41)
[2018-05-11 01:42] LABS: Urine Blood TRACE (NEG); Urine Glucose NEGATIVE (NEG); Urine Protein NEGATIVE (NEG); Urine pH 6.5 (5.0-7.0)
[2018-05-11] MEDS ORDERED: NITROGLYCERIN 0.4 MG/TAB SL ONE (01:42)
[2018-05-11 02:46] LABS: Absolute Lymphocytes (CBC) 33.3 K/uL (0.7-4.9); Absolute Monocytes 0.1 K/uL (0.1-1.3); Absolute Neutrophil 0.7 K/uL (1.8-8.0); Basophils % 0.1 % (0-1.3); Eosinophils % 0.5 % (0-4.4); Lymphocytes % 96.9 % (15.3-44.8); MCV 100.2 fL (80-100); MPV 11.8 fL (7.6-11.3); Monocytes % 0.3 % (3.3-12.3); RBC Red Blood Cell Count 1.96 M/uL (3.86-4.86)
[2018-05-11 02:50] LABS: Protime INR 0.92
[2018-05-11 02:54] LABS: Anisocytosis 1+; Blood Morphology Comment NOTED (NOT SEEN); Hematocrit 19.6 % (36.0-45.0); Platelet Estimate DECR
[2018-05-11 03:06] LABS: ALT/SGPT 18 U/L (12-78); AST/SGOT 14 U/L (15-37); Albumin 2.8 g/dL (3.4-5.0); Alkaline Phosphatase 74 U/L (45-117); BUN Blood Urea Nitrogen 12 mg/dL (7-18); Bicarbonate 28 mmol/L (21-32); Bilirubin Direct < 0.1 mg/dL (0-0.2); Bilirubin Total 0.2 mg/dL (0.2-1.0); CKMB Creatine Kinase MB < 1.0 ng/mL (0.3-3.6); Creatine Phosphokinase 29 U/L (26-192); Glucose Level 105 mg/dL (74-106); Magnesium 2.3 mg/dL (1.8-2.4); NT PRO-BNP 107 pg/mL (<125); Potassium 3.7 mmol/L (3.5-5.1); Protein, Total 5.9 g/dL (6.4-8.2); Sodium Level 144 mmol/L (136-145)
--- NOTE | 2018-05-11 03:20 | ER ---
Nurse's Notes [facility] Name: Lisy Betts Age: 68 yrs Sex: Female : 1950 Arrival Date: 05/11/2018 Time: 00:33 Bed 20 Private MD: Bertin Hamm Diagnosis: Anemia, unspecified;Chest pain, unspecified Presentation: 05/11 00:42 Presenting complaint: Patient states: she has had several episodes of chest pain today bb but pain is worse than normal it was sharp but now it feels heavy she is short of breath and feeling dizzy pt has chronic leukemia and states she is normally anemic. Transition of care: patient was not received from another setting of care. Onset of symptoms was May 09, 2018. Risk Assessment: Do you want to hurt yourself or someone else? Patient reports no desire to harm self or others. Initial Sepsis Screen: Does the patient meet any 2 criteria? No. Patient's initial sepsis screen is negative. Does the patient have a suspected source of infection? No. Patient's initial sepsis screen is negative. Care prior to arrival: None. 00:42 Method Of Arrival: Ambulatory bb 00:42 Acuity: ARNOLD 2 bb Triage Assessment: 00:51 General: Appears in no apparent distress. Behavior is calm, cooperative. Pain: ak1 Complains of pain in chest. EENT: No signs and/or symptoms were reported regarding the EENT system. Neuro: No deficits noted. Cardiovascular: Reports chest pain. Respiratory: No deficits noted. GI: No signs and/or symptoms were reported involving the gastrointestinal system. : No signs and/or symptoms were reported regarding the genitourinary system. Derm: Musculoskeletal: No signs and/or symptoms reported regarding the musculoskeletal system. Historical: - Allergies: 00:44 ceftriaxone; bb 00:44 PENICILLINS; bb 00:44 Prednisone; bb - Home Meds: 00:44 None [Active]; bb - PMHx: 00:44 CLL; Pulmonary Embolism; UTI; bb - PSHx: 00:44 Hysterectomy; bb - Immunization history:: Adult Immunizations up to date. - Social history:: Smoking status: Patient/guardian denies using tobacco, Patient/guardian denies using alcohol, street drugs. - Ebola Screening: : No symptoms or risks identified at this time. Screenin:51 Abuse screen: Denies threats or abuse. Denies injuries from another. Nutritional ak1 screening: No deficits noted. Tuberculosis screening: No symptoms or risk factors identified. Fall Risk None identified. Assessment: 00:52 Pain: Pain began. ak1 00:52 Pain: Pain does not radiate. ak1 01:50 General: pt labs re-draw per outside lab.. ak1 02:22 General: outside lab called, re-draw was "off" from first draw. inside lab to come draw ak1 a third set. . 03:06 Reassessment: report given to Emily White RN. ak1 03:24 Reassessment: Applied 2L NC per CONCRETE PUMP OPERATOR verbal order. bs1 03:53 Reassessment: Patient appears in no apparent distress at this time. Patient and/or bs1 family updated on plan of care and expected duration. Pain level reassessed. Patient is alert, oriented x 3, equal unlabored respirations, skin warm/dry/pink. Report called to 4th floor. informed nurse that patient will be receiving 1 unit PRBC's and will need to be premedicated with benadryl 12.5mg x1 and tylenol 650mg po x1 Patient denies pain at this time. Vital Signs: 00:44 BP 134 / 66; Pulse 77; Resp 18 S; Temp 98.9(O); Pulse Ox 98% on R/A; Weight 97.52 kg bb (R); Height 5 ft. 3 in. (160.02 cm) (R); Pain 6/10; 01:26 BP 114 / 51; Pulse 65; Resp 18; Pulse Ox 97% on R/A; ak1 02:44 BP 112 / 52; Pulse 61; ak1 03:50 BP 115 / 55; Pulse 63; Resp 16; Temp 97.7(O); Pulse Ox 100% on R/A; Pain 0/10; bs1 00:44 Body Mass Index 38.09 (97.52 kg, 160.02 cm) bb ED Course: 00:33 Patient arrived in ED. es 00:34 Bertin Hamm MD is Private Physician. es 00:38 Harsha Lacy LVN is Primary Nurse. jl3 00:43 [facility] pm1 00:43 Javed Osborne MD is Attending Physician. pm1 00:43 Triage completed. bb 00:44 Arm band placed on Patient placed in an exam room, on a stretcher, on pulse oximetry. bb EKG completed in triage. Results shown to MD. 00:49 EKG done, by ED staff, reviewed by Richard Alvares NP. cb2 00:50 Julieta Oliva RN is Primary Nurse. ak1 00:50 Patient has correct armband on for positive identification. Placed in gown. Bed in low ak1 position. Call light in reach. Side rails up X 1. pulp house supervisor on. Pulse ox on. NIBP on. 00:50 Patient maintains SpO2 saturation greater than 95% on room air. ak1 01:15 X-ray completed. Portable x-ray completed in exam room. Patient tolerated procedure kw well. 01:16 XRAY Chest (1 view) In Process Unspecified. EDMS 02:00 Consent for blood and/or blood product transfusion explained by staff, signed by ak1 patient. 02:54 Notified Nurse Practitioner and/or Physician Epic Beacon Analyst of a critical lab result(s), bb WBCs 34.3, HGB 6.7, HCT 19.6, Plt 32,000. Yobany Alvares NP notified. 03:20 Ramses Grimaldo MD is Hospitalizing Provider. pm1 03:51 No provider procedures requiring assistance completed. Patient admitted, IV remains in bs1 place. intact. Administered Medications: 01:48 Drug: Aspirin Chewable Tablet 324 mg Route: PO; ak1 01:49 Follow up: Response: No adverse reaction ak1 01:48 Drug: Nitroglycerin 0.4 mg Route: Sublingual; ak1 02:52 Follow up: Response: No adverse reaction ak1 03:58 Not Given (to be given on 4th floor prior to transfusion): Benadryl 12.5 mg IVP once bs1 03:58 Not Given (to be given on 4th floor): Tylenol 650 mg PO once bs1 Outcome: 03:20 Decision to Hospitalize by Provider. pm1 03:51 Admitted to Tele accompanied by tech, via stretcher, room 422, with oxygen, with chart, bs1 Report called to HARLEY Delgadillo 03:51 Condition: stable 03:51 Instructed on the need for admit, Demonstrated understanding of instructions. 04:02 Patient left the ED. bs1 Signatures: Dispatcher [employer] Ofe Hernandez Brenda, RN RN Heather Whitt John, LOAN SERVICING SPECIALIST LOAN SERVICING SPECIALIST jl3 Julieta Oliva RN RN ak1 Richard Alvares, CONCRETE PUMP OPERATOR CONCRETE PUMP OPERATOR pm1 Darryl Braun Brittany, RN RN bs1 Corrections: (The following items were deleted from the chart) 02:23 01:50 General: pt labs re-draw per inside lab.. ak1 ak1
--- NOTE | 2018-05-11 03:20 | EDPHYS ---
Physician Documentation [facility] Name: Lisy Betts Age: 68 yrs Sex: Female : 1950 Arrival Date: 05/11/2018 Time: 00:33 Bed 20 Private MD: Bertin Hamm ED Physician Javed Osborne HPI: 05/11 01:00 This 68 yrs old Female presents to ER via Ambulatory with complaints of Chest pm1 Pain. 01:00 The patient or guardian reports chest pain that is located primarily in the substernal pm1 area. Onset: just prior to arrival. The pain does not radiate. Associated signs and symptoms: Pertinent positives: dizziness, shortness of breath, Pertinent negatives: abdominal pain, cough, nausea, vomiting. The chest pain is described as a pressure. Duration: The patient or guardian reports a single episode, that is still ongoing. Modifying factors: The symptoms are alleviated by nothing. the symptoms are aggravated by exertion. Severity of pain: in the emergency department the pain is a 8 / 10. The patient has experienced similar episodes in the past, multiple times, but today's symptoms are worse, no resolution with rest. Patient with history of CLL and anemia. Patient reports blood transfusion about 2 weeks ago. today patient just left the movie theatre and was walking to her car. Typically the patient has some shortness of breath and chest pain that resolve with when she exerts herself. Today when she reached her car, which is a longer distance than her norm for walking, she started experiencing chest pain and shortness of breath with some dizziness. Resting in her car did not resolve the pain and she is still having chest pain at arrival to the ER. Patient's shortness of breath and dizziness have resolved on ER arrival. Patient does not take any medications. CLL managed by Agatha and PCP is Noris. Historical: - Allergies: 00:44 ceftriaxone; bb 00:44 PENICILLINS; bb 00:44 Prednisone; bb - Home Meds: 00:44 None [Active]; bb - PMHx: 00:44 CLL; Pulmonary Embolism; UTI; bb - PSHx: 00:44 Hysterectomy; bb - Immunization history:: Adult Immunizations up to date. - Social history:: Smoking status: Patient/guardian denies using tobacco, Patient/guardian denies using alcohol, street drugs. - Ebola Screening: : No symptoms or risks identified at this time. ROS: 01:00 Constitutional: Negative for fever, chills, and weight loss, Eyes: Negative for injury, pm1 pain, redness, and discharge, ENT: Negative for injury, pain, and discharge, Neck: Negative for injury, pain, and swelling. 01:00 Abdomen/GI: Negative for abdominal pain, nausea, vomiting, diarrhea, and constipation, Back: Negative for injury and pain, : Negative for injury, bleeding, discharge, and swelling, MS/Extremity: Negative for injury and deformity, Skin: Negative for injury, rash, and discoloration. 01:00 Cardiovascular: Positive for chest pain, Negative for edema, orthopnea, palpitations. 01:00 Respiratory: Positive for shortness of breath, Negative for sputum production, wheezing. 01:00 Neuro: Positive for dizziness, Negative for numbness, syncope, weakness. Exam: 01:00 Constitutional: This is a well developed, well nourished patient who is awake, alert, pm1 and in no acute distress. Head/Face: Normocephalic, atraumatic. Eyes: Pupils equal round and reactive to light, extra-ocular motions intact. Lids and lashes normal. Conjunctiva and sclera are non-icteric and not injected. Cornea within normal limits. Periorbital areas with no swelling, redness, or edema. Neck: Trachea midline, no thyromegaly or masses palpated, and no cervical lymphadenopathy. Supple, full range of motion without nuchal rigidity, or vertebral point tenderness. No Meningismus. Chest/axilla: Normal chest wall appearance and motion. Nontender with no deformity. No lesions are appreciated. Cardiovascular: Regular rate and rhythm with a normal S1 and S2. No gallops, murmurs, or rubs. Normal PMI, no JVD. No pulse deficits. Respiratory: Lungs have equal breath sounds bilaterally, clear to auscultation and percussion. No rales, rhonchi or wheezes noted. No increased work of breathing, no retractions or nasal flaring. Abdomen/GI: Soft, non-tender, with normal bowel sounds. No distension or tympany. No guarding or rebound. No evidence of tenderness throughout. Back: No spinal tenderness. No costovertebral tenderness. Full range of motion. 01:00 MS/ Extremity: Pulses equal, no cyanosis. Neurovascular intact. Full, normal range of motion. 01:00 ENT: Mouth: Oral mucosa: moist, pale. 01:00 Skin: Appearance: normal except for affected area, Color: pale. 01:00 Neuro: Orientation: is normal, Motor: is normal, moves all fours, strength is normal, strength is 5/5 in all extremities, Sensation: is normal, no obvious gross deficits. Vital Signs: 00:44 BP 134 / 66; Pulse 77; Resp 18 S; Temp 98.9(O); Pulse Ox 98% on R/A; Weight 97.52 kg bb (R); Height 5 ft. 3 in. (160.02 cm) (R); Pain 6/10; 01:26 BP 114 / 51; Pulse 65; Resp 18; Pulse Ox 97% on R/A; ak1 02:44 BP 112 / 52; Pulse 61; ak1 03:50 BP 115 / 55; Pulse 63; Resp 16; Temp 97.7(O); Pulse Ox 100% on R/A; Pain 0/10; bs1 00:44 Body Mass Index 38.09 (97.52 kg, 160.02 cm) bb MDM: 00:49 Patient medically screened. pm1 01:43 ED course: Lab called requesting repeat lab draw due to concern that CBC in incorrect. pm1 The Hgb was 3.0 according to the lab. 02:22 ED course: Lab called requesting repeat lab draw due to concern that CBC is incorrect pm1 again. The Hgb is now 7.1 according to the lab. The lab wants to send their optical brightener maker helper to draw the blood. 03:19 Data reviewed: vital signs. Data interpreted: Pulse oximetry: on room air is 97 %. pm1 Interpretation: normal. Counseling: I had a detailed discussion with the patient and/or guardian regarding: the historical points, exam findings, and any diagnostic results supporting the discharge/admit diagnosis, lab results, radiology results, the need for further work-up and treatment in the hospital. 03:19 Physician consultation: Ramses Grimaldo MD was contacted at 03:19, regarding admission, pm1 patient's condition, and will see patient. 05/11 00:49 Order name: CBC with Diff pm1 05/11 00:49 Order name: PT-INR; Complete Time: 02:58 pm1 08/03 00:49 Order name: Ptt, Activated; Complete Time: 02:58 pm1 05/11 00:49 Order name: Troponin (emerg Dept Use Only); Complete Time: 01:44 pm1 05/11 01:09 Order name: Urine Dipstick--Ancillary (enter results); Complete Time: 01:44 ms 05/11 01:44 Order name: Type And Screen pm1 05/11 01:51 Order name: Basic Metabolic Panel; Complete Time: 03:07 EDMS 05/11 01:51 Order name: Liver (Hepatic) Function; Complete Time: 03:07 EDMS 05/11 00:49 Order name: XRAY Chest (1 view) pm1 05/11 00:49 Order name: EKG; Complete Time: 00:50 pm1 05/11 00:49 Order name: Cardiac monitoring; Complete Time: 00:54 pm1 05/11 00:49 Order name: EKG - Nurse/Tech; Complete Time: 00:54 pm1 05/11 00:49 Order name: IV Saline Lock; Complete Time: 01:14 pm1 05/11 00:49 Order name: Labs collected and sent; Complete Time: 01:14 pm1 05/11 01:51 Order name: Creatine Phosphokinase; Complete Time: 03:07 EDMS 05/11 01:51 Order name: CKMB Creatine Kinase MB; Complete Time: 03:07 EDMS 05/11 01:51 Order name: NT PRO-BNP; Complete Time: 03:07 EDMS 05/11 01:51 Order name: Magnesium; Complete Time: 03:07 EDMS 05/11 02:54 Order name: Manual Differential EDMS 05/11 03:15 Order name: Heart Healthy EDMS 05/11 00:49 Order name: O2 Per Protocol; Complete Time: 00:54 pm1 05/11 00:49 Order name: O2 Sat Monitoring; Complete Time: 00:54 pm1 05/11 00:49 Order name: Urine Dipstick-Ancillary (obtain specimen); Complete Time: 01:14 pm1 Administered Medications: 01:48 Drug: Aspirin Chewable Tablet 324 mg Route: PO; ak1 01:49 Follow up: Response: No adverse reaction ak1 01:48 Drug: Nitroglycerin 0.4 mg Route: Sublingual; ak1 02:52 Follow up: Response: No adverse reaction ak1 03:58 Not Given (to be given on 4th floor prior to transfusion): Benadryl 12.5 mg IVP once bs1 03:58 Not Given (to be given on 4th floor): Tylenol 650 mg PO once bs1 Disposition: 07:27 Co-signature as Attending Physician, Javed Osborne MD I agree with the assessment and nathaniel plan of care. Disposition: 05/11/18 03:20 Hospitalization ordered by Ramses Grimaldo for Observation. Preliminary diagnosis are Anemia, unspecified, Chest pain, unspecified. - Bed requested for Telemetry/MedSurg (observation). - Status is Observation. bs1 - Condition is Stable. - Problem is new. - Symptoms have improved. UTI on Admission? No Signatures: Dispatcher [employer] EDNY Javed Osborne MD MD cha Ballard, Brenda, RN RN Julieta Taylor RN RN ak1 Richard Alvares, SOIL CHEMIST SOIL CHEMIST pm1 Emily Ryan, RN RN bs1 Bk Bennett mw2 Corrections: (The following items were deleted from the chart) 01:51 00:50 BASIC METABOLIC PANEL+C.LAB.BRZ ordered. [facility] EDNY 01:51 00:50 CKMB+C.LAB.BRZ ordered. [facility] 01:51 00:50 CREATINE PHOSPHOKINASE+C.LAB.BRZ ordered. [facility] EDNY 01:51 00:50 HEPATIC FUNCTION+C.LAB.BRZ ordered. [facility] 01:51 00:50 MAGNESIUM+C.LAB.BRZ ordered. [facility]NY 01:51 00:50 PROBNP+C.LAB.BRZ ordered. [facility] 03:37 03:20 Hospitalization Ordered by Ramses Grimaldo MD for Observation. Preliminary mw2 diagnosis is Anemia, unspecified; Chest pain, unspecified. Bed requested for Telemetry/MedSurg (observation). Status is Observation. Condition is Stable. Problem is new. Symptoms have improved. UTI on Admission? No. pm1 04:02 03:37 05/11/2018 03:20 Hospitalization Ordered by Ramses Grimaldo MD for Observation. bs1 Preliminary diagnosis is Anemia, unspecified; Chest pain, unspecified. Bed requested for Telemetry/MedSurg (observation). Status is Observation. Condition is Stable. Problem is new. Symptoms have improved. UTI on Admission? No. mw2
[2018-05-11] MEDS ORDERED: ACETAMINOPHEN 325 MG TABLET PO ONE (04:19)
[2018-05-11] MEDS ORDERED: DIPHENHYDRAMINE 50 MG/ML VIAL IV ONE (04:20)
[2018-05-11 04:22] VITALS: BMI 38.5
[2018-05-11] MEDS ORDERED: NA CHLORIDE 0.9% 250 ML ONE (05:27)
[2018-05-11 05:58] LABS: Smudge Cells MANY
--- NOTE | 2018-05-11 06:45 | EKG ---
Test Date: 2018-05-11 Test Time: 00:45:44 Forest Fire Fighter: STEPHY MEASUREMENT RESULTS: Intervals: Rate: 72 VA: 162 QRSD: 80 QT: 396 QTc: 433 [place]: P: -14 VA: 162 QRS: 39 T: 65 INTERPRETIVE STATEMENTS: Normal sinus rhythm Normal ECG Compared to ECG 03/25/2018 23:29:35 No significant changes Electronically Signed On 05-11-18 06:45:04 CDT by Stevan Olivia
--- NOTE | 2018-05-11 07:02 | P.HP ---
Certification for Inpatient Patient admitted to: Observation With expected LOS: <2 Midnights Patient will require the following post-hospital care: None Practitioner: I am a practitioner with admitting privileges, knowledge of patient current condition, hospital course, and medical plan of care. Services: Services provided to patient in accordance with Admission requirements found in Title 42 Section 412.3 of the Code of Federal Regulations Patient History Date of Service: 05/11/18 Reason for admission: Pancytopenia in a patient with a history of CLL/chest pain History of Present Illness: Patient is a 68-year-old female who presents to the hospital with chest discomfort. Pain was mainly in the sternal region. Her pain was not improving so she came to the emergency room for further evaluation. In the ER, her workup revealed pancytopenia. Her hemoglobin was 6.7. Patient has history of CLL. Patient was admitted to the hospital for a blood transfusion. Her chest pain is pretty much resolved. She may be having angina type symptoms secondary to the anemia. Will do serial troponins and EKG and get Cardiology consultation in the morning. Echocardiogram as well. Will transfuse her 1 unit of packed red blood cells and get a hematology consultation as well. Patient was found have January of this year. However a follow-up CT scan of month and a half later did not reveal the pulmonary embolism any longer. Patient is not on any anti coagulation at this time. Patient denied any shortness of breath. Patient did not have any palpitations. Patient just at the chest discomfort which resolved in the emergency room. Allergies ceftriaxone [From Rocephin] Allergy (Verified 03/26/18 03:04) Hives Penicillins Allergy (Verified 03/26/18 03:04) Hives prednisone Adverse Reaction (Verified 03/26/18 03:04) Shortness of breath Home Medications: NK [No Home Meds] 03/26/18 - Past Medical/Surgical History Has patient received pneumonia vaccine in the past: No Diabetic: No -: Chronic Lymphocytic Leukemia -: 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 -: PE -: cyst removed from left breast -: left ankle surgery -: Hysterectomy 2018 -: Abdominal hernia repair with mesh placement - Family History Mother Medical History: Heart disease, Other (see notes) Notes: [place], [place] Father Medical History: Cancer Notes: Pancreatic [place] - Social History Smoking Status: Never smoker Alcohol use: No CD- Drugs: No Caffeine use: Yes Place of Residence: Home Review of Systems 10-point ROS is otherwise unremarkable Physical Examination - Vital Signs Temperature: 97.9 F Blood Pressure: 138/67 Pulse: 62 Respirations: 18 Pulse Ox (%): 100 - Physical Exam General: Alert, In no apparent distress, Oriented x3 HEENT: Atraumatic, PERRLA, Mucous membr. moist/pink, EOMI, Sclerae nonicteric Neck: Supple, 2+ carotid pulse no bruit, No LAD, Without JVD or thyroid abnormality Respiratory: Clear to auscultation bilaterally, Normal air movement Cardiovascular: Regular rate/rhythm, Normal S1 S2, Systolic murmur Gastrointestinal: Normal bowel sounds, Soft and benign, Non-distended, No tenderness Musculoskeletal: No clubbing, No swelling, No tenderness Integumentary: No rashes Neurological: Normal gait, Normal speech, Normal strength at 5/5 x4 extr, Normal tone, Sensation intact, Cranial nerves 3-12 intact, Normal affect Lymphatics: No axilla or inguinal lymphadenopathy - Studies Laboratory Data (last 24 hrs) 05/11/18 02:33: Sodium 144, Potassium 3.7, BUN 12, Creatinine 0.70, Glucose 105 , Magnesium 2.3, Total Bilirubin 0.2, AST 14 L, ALT 18, Alkaline Phosphatase 74 05/11/18 02:33: PT 10.9, INR 0.92, APTT 29.3 05/11/18 02:33: WBC 34.3 H* D, Hgb 6.7 L*, Hct 19.6 L*, Plt Count 32 L* 05/11/18 01:10: Sodium Cancelled, Potassium Cancelled, BUN Cancelled, Creatinine Cancelled, Glucose Cancelled, Magnesium Cancelled, Total Bilirubin Cancelled, AST Cancelled, ALT Cancelled, Alkaline Phosphatase Cancelled Assessment & Plan - Problems (Diagnosis) (1) Pancytopenia Current Visit: Yes Status: Acute (2) Symptomatic anemia Current Visit: Yes Status: Acute (3) Chest pain Onset Date: 03/22/18 Current Visit: No Status: Acute (4) CLL (chronic lymphocytic leukemia) Onset Date: 01/23/18 Current Visit: No Status: Chronic - Plan Plan: 1. IV hydration 2. Transfusion of 1 unit of packed red blood cells 3. Serial troponins and EKG 4. Hematology and Cardiology consultation 5. Echocardiogram and patient may need outpatient stress test 6. Anti-platelet therapy, anti coagulation, beta-flakita, statin, and O2 as needed 7. IV morphine for pain 8. GI and DVT prophylaxis Discharge Plan: Home Plan to discharge in: Greater than 2 days - Advance Directives Does patient have a Living Will: No Does patient have a Durable POA for Healthcare: No - Code Status/Comfort Care Code Status Assessed: Yes Code Status: Full Code Critical Care: No Time Spent Managing PTS Care (In Minutes): 50
[2018-05-11] MEDS ORDERED: SODIUM CHLORIDE 0.9% 10ML INJ IV PRN (07:03)
--- NOTE | 2018-05-11 07:37 | RAD REPORT ---
EXAM DESCRIPTION: Jazmine Single View05/11/2018 1:16 am CLINICAL HISTORY: Chest pain COMPARISON: March 2018 FINDINGS: The lungs appear clear of acute infiltrate. The heart is normal size IMPRESSION: No acute abnormalities displayed
[2018-05-11] MEDS ORDERED: METOPROLOL TAR 50 MG TAB PO SCH (09:00)
--- NOTE | 2018-05-11 09:47 | CON ---
History Of Present Illness: Ms. Betts is 68. She has been diagnosed with chronic lymphocytic leukemi a. Apparently, it is a very aggressive form that she has bone marrow failure and is being assessed f or chemotherapy, has not actually received any chemotherapy. She has required blood transfusions. S he presented to our hospital with exertional tightness in the chest, shortness of breath. She was fo und to have a hemoglobin of 6.7. She is getting a transfusion right now during the examination. The patient has never had myocardial infarction, stroke, or any other vascular disease. She does not piper ve diabetes or dyslipidemia. Uses no tobacco. Allergies: SHE IS ALLERGIC TO CEFTRIAXONE, PENICILLIN, AND PREDNISONE. Medications: She takes no home medications and intravenous chemotherapy is being planned, but not st arted yet. Physical Examination: Vital Signs: 5 feet 3, 217 pounds. General: Alert, oriented, pleasant. Lungs: Clear. Heart: Normal. Abdomen: Soft. Extremities: Normal. I think the patient should continue with her transfusion. We can get an echocardiogram today. I do not have a very high suspicion at all that her chest pain is due to CAD. If her echocardiogram looks good and her chest pain goes away when her hemoglobin is around 10 or at least in the high 9s, then I do not think we really need to do an ischemic workup. If she develops chest pain when her hemoglob in is good, we will have her do a pharmacologic nuclear stress test. Thank you very much for your kind referral of Ms. Betts. I will follow her with you. JOHN Voice ID: [id number] Report ID: [id number]
[2018-05-11] MEDS: METOPROLOL TAR 25 MG TAB PO SCH ×2 (09:50→21:33)
[2018-05-11] MEDS: PANTOPRAZOLE 40 MG INJ IVP SCH ×2 (09:51→21:34)
[2018-05-11] MEDS: ASPIRIN EC 81 MG TAB PO SCH (09:53)
--- NOTE | 2018-05-11 14:13 | ECHO ---
HEIGHT: 5 ft 3 in WEIGHT: 217 lb 12.8 oz DATE OF STUDY: 05/11/[address]: Stevan Olivia MD 2-DIMENSIONAL: YES M.MODE: YES DOPPLER: YES COLOR FLOW: YES TDS: PORTABLE: DEFINITY: BUBBLE STUDY: DIAGNOSIS: CHEST PAIN CARDIAC HISTORY: CATHERIZATION: NO SURGERY: NO PROSTHETIC VALVE: NO PACEMAKER: NO MEASUREMENTS (cm) DIASTOLIC (NORMALS) SYSTOLIC (NORMALS) IVSd 1.0 (0.6-1.2) LA Diam 4.0 (1.9-4.0) LVEF 72% LVIDd 5.0 (3.5-5.7) LVIDs 2.9 (2.0-3.5) %FS 42% LVPWd 1.1 (0.6-1.2) Ao Diam 2.6 (2.0-3.7) 2 DIMENSIONAL ASSESSMENT: RIGHT ATRIUM: NORMAL LEFT ATRIUM: NORMAL RIGHT VENTRICLE: NORMAL LEFT VENTRICLE: NORMAL TRICUSPID VALVE: NORMAL MITRAL VALVE: NORMAL PULMONIC VALVE: NORMAL AORTIC VALVE: NORMAL PERICARDIAL EFFUSION: NONE AORTIC ROOT: NORMAL LEFT VENTRICULAR WALL MOTION: NORMAL DOPPLER/COLOR FLOW: TRACE MITRAL AND TRICUSPID REGURGITAITON. NORMAL RIGHT VENTRICULAR SYSTOLIC PRESSURE. COMMENTS: NORMAL 2-DIMENSIONAL ECHOCARDIOGRAM. TRACE MITRAL AND TRICUSPID REGURGITATION. TECHNOLOGIST: ALTAGRACIA TREVIÑO
[2018-05-11] MEDS ORDERED: ENOXAPARIN 30 MG/0.3 ML SQ SCH (17:00)
[2018-05-11] MEDS: DOCUSATE NA 100 MG CAP PO SCH (21:33)
[2018-05-12 01:27] VITALS: O2SAT 93
[2018-05-12] MEDS: METOPROLOL TAR 25 MG TAB PO SCH (09:51)
[2018-05-12] MEDS: ASPIRIN EC 81 MG TAB PO SCH (09:52)
[2018-05-12] MEDS: DOCUSATE NA 100 MG CAP PO SCH (09:52)
[2018-05-12] MEDS: PANTOPRAZOLE 40 MG INJ IVP SCH (09:53)
[2018-05-12 10:24] LABS: Absolute Lymphocytes (CBC) 39.4 K/uL (0.7-4.9); Absolute Monocytes 0.2 K/uL (0.1-1.3); Absolute Neutrophil 0.7 K/uL (1.8-8.0); Basophils % 0.1 % (0-1.3); Eosinophils % 0.4 % (0-4.4); Hematocrit 26.9 % (36.0-45.0); Lymphocytes % 97.2 % (15.3-44.8); MCH 32.9 pg (27.0-35.0); MCV 97.8 fL (80-100); MPV 11.2 fL (7.6-11.3); Monocytes % 0.5 % (3.3-12.3); RBC Red Blood Cell Count 2.75 M/uL (3.86-4.86)
[2018-05-12 10:41] LABS: Albumin 3.3 g/dL (3.4-5.0); Bilirubin Total 0.2 mg/dL (0.2-1.0); Protein, Total 6.6 g/dL (6.4-8.2)
--- NOTE | 2018-05-12 10:50 | P.SSS ---
Patient History Date of Service: 05/12/18 Primary Care Provider: Oncology - Dr Benjamin Reason for admission: Pancytopenia in a patient with a history of CLL/chest pain History of Present Illness: Patient is a 68-year-old female who presents to the hospital with chest discomfort. Pain was mainly in the sternal region. Her pain was not improving so she came to the emergency room for further evaluation. In the ER, her workup revealed pancytopenia. Her hemoglobin was 6.7. Patient has history of CLL. Patient was admitted to the hospital for a blood transfusion. Her chest pain is pretty much resolved. She may be having angina type symptoms secondary to the anemia. Will do serial troponins and EKG and get Cardiology consultation in the morning. Echocardiogram as well. Will transfuse her 1 unit of packed red blood cells and get a hematology consultation as well. Patient was found have January of this year. However a follow-up CT scan of month and a half later did not reveal the pulmonary embolism any longer. Patient is not on any anti coagulation at this time. Patient denied any shortness of breath. Patient did not have any palpitations. Patient just at the chest discomfort which resolved in the emergency room. Allergies ceftriaxone [From Rocephin] Allergy (Verified 03/26/18 03:04) Hives Penicillins Allergy (Verified 03/26/18 03:04) Hives prednisone Adverse Reaction (Verified 03/26/18 03:04) Shortness of breath Home Medications: NK [No Home Meds] 03/26/18 - Past Medical/Surgical History Has patient received pneumonia vaccine in the past: No Diabetic: No -: Chronic Lymphocytic Leukemia -: 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 -: PE -: cyst removed from left breast -: left ankle surgery -: Hysterectomy 2018 -: Abdominal hernia repair with mesh placement - Family History Mother -: Heart disease, Other (see notes) Notes: [place], [place] Father -: Cancer Notes: Pancreatic [place] - Social History Smoking Status: Never smoker Alcohol use: No CD- Drugs: No Caffeine use: Yes Place of Residence: Home Review of Systems General: As per HPI Physical Examination - Vital Signs Temperature: 96.0 F Blood Pressure: 132/70 Pulse: 63 Respirations: 18 Pulse Ox (%): 94 - Physical Exam General: Alert, In no apparent distress HEENT: Atraumatic, PERRLA, Mucous membr. moist/pink, EOMI, Sclerae nonicteric Neck: Supple, 2+ carotid pulse no bruit, No LAD, Without JVD or thyroid abnormality Respiratory: Clear to auscultation bilaterally, Normal air movement Cardiovascular: Regular rate/rhythm, Normal S1 S2 Gastrointestinal: Normal bowel sounds, No tenderness Musculoskeletal: No tenderness Integumentary: No rashes Neurological: Normal gait, Normal speech, Normal strength at 5/5 x4 extr, Normal tone, Normal affect Lymphatics: No axilla or inguinal lymphadenopathy - Diagnosis (Problem(s)) (1) Symptomatic anemia Onset Date: 05/11/18 Current Visit: Yes Status: Resolved Plan: 2.2 to CLL. Hgb on admission to be 6.7. Transfused 1 unit and now Hgb is 9.0 - No Chest pain now and pt states she feels better and no longer dizzy -Tolerating diet and ambulating without any diff -DC home today (2) Chest pain Onset Date: 03/22/18 Current Visit: No Status: Resolved Plan: Chest pain most likely 2.2 to Anemia -ECHO WNL -Cardiology consulted. Appreciated Reccs -DC home today. No cardiac W/u Needed Qualifiers: Chest pain type: unspecified Qualified Code(s): R07.9 - Chest pain, unspecified (3) Pancytopenia Onset Date: 05/11/18 Current Visit: Yes Status: Chronic (4) CLL (chronic lymphocytic leukemia) Onset Date: 01/23/18 Current Visit: No Status: Chronic - Disposition Disposition: ROUTINE DISCHARGE Condition: GOOD Diet: Regular Activity: Ad jamaal
[2018-05-12 14:01] VITALS: BP 157/65; TEMP 97
== END 2018-05-12 13:51 | disposition home or self-care (01) ==
LOC: ER 00:32 → ERHOLD 03:13 → 4TH 03:47
PROVIDERS: ADMIT Hospitalist; ATTEND Family Medicine
PROC: 30233N1 Transfusion of Nonautologous Red Blood Cells into Peripheral Vein, Percutaneous Approach (ICD-10-PCS; principal; 2018-05-11)
DX: C91.10 Chronic lymphocytic leukemia of B-cell type not having achieved remission (principal); D63.0 Anemia in neoplastic disease; D61.818 Other pancytopenia; R07.9 Chest pain, unspecified; Z86.711 Personal history of pulmonary embolism; Z88.1 Allergy status to other antibiotic agents; Z88.0 Allergy status to penicillin; Z88.8 Allergy status to other drugs, medicaments and biological substances
CPT/HCPCS: 36415 ×2; 36430; 71045; 80048; 80053; 80076; 81003; 82550; 82553; 83615; 83735; 83880; 84484; 85014; 85018; 85025 ×2; 85044; 85610; 85730; 86850; 86900; 86901; 93005; 93306; 99285; C9113 ×3; P9016

== ENCOUNTER 2018-05-28 21:25 | Emergency (ER) | payer OTHER ==
--- OUTSIDE RECORDS SUMMARY | 2018-05-28 21:28 | XMS REPORT | Continuity of Care Document ---
:1950 Author Organization Interface Problems Problem Status Onset Classification Date Comments Source Date Reported ANEMIA, Active 05/16/[address] [facility] THROMBOCYTOPENIA, [address] [place] [address] LEUKEMIA WEAKNESS Active 05/16/[address] CHRONIC Active 03/27/20 [facility] LYMPHOBLASTIC [address] [place] [address] LEUKEMIA Center ANEMIA, Active [facility] UNSPECIFIED [facility] LEUKEMIA, Active [facility] HAVING ACHIEVE THROMBOCYTOPENIA, Active [facility] UNSPECIFIED [facility] Medications Medication Details Route Status Patient Ordering Order Source Instructions Provider Date Melatonin 3 MG 3 mg, 1 tab, No Longer [facility] Extended Route: PO, Active 018 Medical Release Tablet Drug Form: Center TAB, Dosing Weight 99.545, kg, Bedtime, Start date: 03/31/18 21:00:00 CDT, Duration: 30 day, Stop date: 04/29/18 21:00:00 CDTNotes: (Same as: Melatonin) Levaquin 750 mg, 1 tab, No Longer [facility] Route: PO, Active 018 Medical Drug form: Center TAB, [id number], Dosing Weight 99.545, kg, Start date: 03/30/18 20:00:00 CDT, Duration: 5 day, Stop date: 04/03/18 20:00:00 CDT, ABX Indication: PneumoniaNotes : Do not give w/antacids, dairy pdt & minerals Take 1 hr before or 2 hr after dairy products Fentanyl 50 microgram, Inactive [facility] Route: IV, 018 Medical ONCE, Dosing Center Weight 99.545, kg, Start date: 03/29/18 9:31:00 CDT, Stop date: 03/29/18 9:31:00 CDT Midazolam 1 mg, Route: Inactive [facility] IV, ONCE, 018 Medical Dosing Weight Center 99.545, kg, Start date: 03/29/18 9:16:00 CDT, Stop date: 03/29/18 9:16:00 CDT Fentanyl 50 microgram, Inactive [facility] Route: IV, 018 Medical ONCE, Dosing Center Weight 99.545, kg, Start date: 03/29/18 9:16:00 CDT, Stop date: 03/29/18 9:16:00 CDT Ibuprofen 200 200 mg, 1 tab, Inactive [place] [facility] Oral Tablet Route: PO, 018 Medical Drug form: [place] TAB, ONCE, Dosing Weight 99.545, kg, Start date: 03/28/18 20:45:00 CDT, Stop date: 03/28/18 20:45:00 CDTNotes: (Same as: Advil) Give with food. Tylenol 650 mg, 2 tab, No Longer [facility] Route: PO, Active 018 Medical Drug form: [place] TAB, Q6H, Dosing Weight 99.545, kg, PRN For Temp > 100.4 F, Start date: 03/28/18 14:31:00 CDT, Duration: 30 day, Stop date: 04/27/18 14:30:00 CDTNotes: Do not exceed 4 gm/day. (Same as: Tylenol) Merrem 500 mg, Route: No Longer [facility] IVPB, Drug Active 018 Medical form: PDR/INJ, Center ABXQ6H, Dosing Weight 99.545, kg, CrCL=30 -49 ml/min, Extended infusion, infuse over 3 hours, Start date: 03/28/18 9:00:00 CDT, Stop date: 04/06/18 19:00:00 CDT, ABX Indication: PneumoniaNotes : Same as Merrem MEDICATION WASTE Product Size: 500 mg Product Wasted: ___ mg Docusate 100 mg, 1 cap, No Longer [facility] Route: PO, Active 018 Medical Drug form: [place] CAP, BID, Dosing Weight 99.545, kg, Start date: 03/28/18 9:00:00 CDT, Duration: 30 day, Stop date: 04/26/18 17:00:00 CDTNotes: (Same as: Colace) (Do Not Crush) Tessalon 100 mg, 1 cap, No Longer [facility] [place] Route: PO, Active 018 Medical Drug form: [place] CAP, TID, Dosing Weight 99.545, kg, PRN Cough, Start date: 03/28/18 0:59:00 CDT, Duration: 30 day, Stop date: 04/27/18 0:58:00 CDTNotes: (Same As: Cherelle Jo) "Do Not Crush" Vancomycin 1.25 gm, No Longer [facility] Route: IVPB, Active 018 Medical [id number], Center Dosing Weight 99.545, kg, Start date: 03/27/18 21:00:00 CDT, Stop date: 04/06/18 9:00:00 CDT, ABX Indication: PneumoniaNotes : TIME CRITICAL MEDICATION (Same As: Vancocin) Infusion rate 2001 mg: infuse over 2.5 hours For adult patients only: Round to nearest 250 mg per Medical Staff approval MEDICATION WASTE Product Size: 1000 mg Product Wasted: ___ mg Zosyn 3.375 gm, Inactive [facility] Route: IVPB, 018 Medical Drug form: Center PDR/INJ, [id number], Dosing Weight 99.545, kg, CrCl >=20 ml/min infuse over 4 hours, Start date: 03/27/18 20:00:00 CDT, Duration: 10 day, Stop date: 04/06/18 12:00:00 CDT, ABX Indication: PneumoniaNotes : (Same as: Zosyn) Dosing based on Piperacillin component MEDICATION WASTE Product Size: 3375 mg Product Wasted: ___ mg Naproxen 500 mg, 1 tab, No Longer [facility] Route: PO, Active 018 Medical Drug form: Center TAB, [id number], Dosing Weight 99.545, kg, Start date: 03/27/18 20:00:00 CDT, Duration: 30 day, Stop date: 04/26/18 8:00:00 CDTNotes: (Same as: Naprosyn) Take with food. Merrem 500 mg, Route: Inactive [facility] IVPB, Drug 018 Medical form: PDR/INJ, Center ABXQ8H, Dosing Weight 99.545, kg, CrCL=30 -49 ml/min, Extended infusion, infuse over 3 hours, Start date: 03/27/18 20:00:00 CDT, Duration: 10 day, Stop date: 04/06/18 12:00:00 CDT, ABX Indication: PneumoniaNotes : Same as Merrem MEDICATION WASTE Product Size: 500 mg Product Wasted: ___ mg Ondansetron 4 mg, 2 mL, No Longer [facility] Route: IVP, Active 018 Medical Drug form: Center INJ, Q6H, Dosing Weight 99.545, kg, PRN Nausea & Vomiting, Start date: 03/27/18 19:39:00 CDT, Duration: 30 day, Stop date: 04/26/18 19:38:00 CDTNotes: (Same as: Zofran) MEDICATION WASTE Product Size: 4 mg Product Wasted: ___ mg Allergies, Adverse Reactions, Alerts Substance Category Reaction Severity Reaction Status Date Comments Source type Reported penicillins Assertion Drug Active [facility] predniSONE Assertion Drug Active [facility] cefTRIAXone Assertion Drug Active [facility] Immunizations Immunization Date Given Site Status Last Updated Comments Source Results Order Name Results Value Reference Date Interpretation Comments Source Range Chest 1view Chest 1view 05/16 [facility] DX [facility] Read by: Matt Rueda MD Dictated Date/time: 05/16/18 20:51 : 1950. Electronically Signed by: Matt Rueda MD 05/16/18 20:51 FINAL REPORT Technique: Portable AP chest x-ray. Comparison: April 26, 2018. Clinical history: - weakness. Heart size: Normal. Lungs: No acute consolidation. Pleura: No pleural effusion. No pneumothorax. Mediastinum and luana: Unremarkable. Musculoskeletal: Unremarkable. Support tubings: None. Impression: 1. No active disease in the chest. CHEM PANEL A/G Ratio 0.8 0.7 - 1.6 04/[address] CHEM PANEL B/C Ratio 20 6 - 25 04/[address] CHEM PANEL Globulin 3.6 g/dL 2.7 - 4.2 04/[address] CHEM PANEL AGAP 10.2 meq/L 10.0 - 04/01 [facility] 20.0 [facility] CHEM PANEL eGFR 92 04/01 Result Comment: The eGFR is calculated using the CKD-EPI formula. In most young, healthy individuals the eGFR will be >90 mL/ min/1.73m2. The eGFR declines with age. An eGFR of 60-89 may be normal in [facility] mL/min/1. some populations, particularly the elderly, for whom the CKD-EPI formula has not been extensively validated. Use of the eGFR is not recommended in the following populations: [address] Individuals with unstable creatinine concentrations, including [...] Phos 67 unit/L 39 - 136 04/[address] CHEM PANEL Bili Total 0.3 mg/dL 0.2 - 1.3 04/[address] CHEM PANEL ALT 16 unit/L 0 - 65 04/[address] CHEM PANEL AST 12 unit/L 0 - 37 04/[address] CHEM PANEL Albumin Lvl 2.8 g/dL 3.5 - 5.0 04/[address] CHEM PANEL Creatinine 0.66 mg/dL 0.50 - 04/01 [facility] Lvl 1.40 [facility] CHEM PANEL Sodium Lvl 141 meq/L 135 - 145 04/[address] CHEM PANEL Total 6.4 g/dL 6.4 - 8.4 04/01 [facility] Protein [address] [place] [address] CHEM PANEL Calcium Lvl 8.6 mg/dL 8.5 - 10.5 04/[address] CHEM PANEL Potassium 4.2 meq/L 3.5 - 5.1 04/01 [facility] CHEM PANEL Chloride Lvl 109 meq/L 95 - 109 04/[address] CHEM PANEL CO2 26 meq/L 24 - 32 04/[address] CHEM PANEL BUN 13 mg/dL 7 - 22 04/[address] CHEM PANEL Glucose Lvl 105 mg/dL 70 - 99 04/01 [facility] [address] [place] [address] HEMATOLOGY Smudge Moderate None Seen 04/01 [facility]* [place] (04/01/18 4:40 AM) HEMATOLOGY Lymphocytes 95.0 % 20.0 - 04/01 [place] 40.0 [facility] HEMATOLOGY Bands 0.0 % 0.0 - 11.0 04/[address] HEMATOLOGY Anisocyte 1+ None Seen 04/01 [facility]* [place] (04/01/18 4:40 AM) HEMATOLOGY Macrocyte 1+ None Seen 04/01 [facility]* [place] (04/01/18 4:40 AM) HEMATOLOGY Plt Morph Normal 04/01 [facility] (04/01/18 4:40 AM) [place] HEMATOLOGY Tot Cell Ct 100 04/01 [facility]2017 [facility] HEMATOLOGY Microcyte 1+ None Seen 04/01 [facility] (04/01/18 4:40 AM) HEMATOLOGY Monocytes 2.0 % 2.0 - 12.0 04/[address] HEMATOLOGY Atypical 0.0 % <=0.0 % 04/01 [facility] Lymphs [facility] HEMATOLOGY Segs-Bands # 0.5 K/CMM 1.5 - 8.1 04/[address] HEMATOLOGY Lymphocytes 16.4 K/CMM 1.0 - 5.5 04/01 [facility] # [facility] HEMATOLOGY Segs 3.0 % 45.0 - 04/01 [place] 75.0 [facility] HEMATOLOGY Monocytes # 0.3 K/CMM 0.0 - 0.8 04/01 [facility]2017 [facility] HEMATOLOGY RBC 2.30 M/CMM 4.20 - 04/01 [place] 5.40 [facility] HEMATOLOGY MCV 100.1 fL 80.0 - 04/01 [place] 98.0 [facility] HEMATOLOGY MCH 33.9 pg 27.0 - 04/01 [place] 31.0 [facility] HEMATOLOGY Platelet 44 K/CMM 133 - 450 04/[address] HEMATOLOGY MPV 11.6 fL 7.4 - 10.4 04/[address] HEMATOLOGY MCHC 33.8 g/dL 32.0 - 04/01 [place] 36.0 [facility] HEMATOLOGY RDW 22.4 % 11.5 - 04/01 [facility] 14.5 [facility] HEMATOLOGY Hgb 7.8 g/dL 12.0 - 04/01 [facility] 16.0 [facility] HEMATOLOGY Hct 23.0 % 36.0 - 04/01 [facility] 48.0 [facility] HEMATOLOGY WBC 17.3 K/CMM 3.7 - 10.4 04/[address] CHEM PANEL B/C Ratio 25 6 - 25 03/[address] CHEM PANEL Globulin 3.7 g/dL 2.7 - 4.2 03/[address] CHEM PANEL AGAP 13.1 meq/L 10.0 - 03/31 [facility] 20.0 [facility] CHEM PANEL A/G Ratio 0.8 0.7 - 1.6 03/[address] CHEM PANEL eGFR 97 03/31 Result Comment: The eGFR is calculated using the CKD-EPI formula. In most young, healthy individuals the eGFR will be >90 mL/ min/1.73m2. The eGFR declines with age. An eGFR of 60-89 may be normal in [facility] mL/min/1.7 some populations, particularly the elderly, for whom the CKD-EPI formula has not been extensively validated. Use of the eGFR is not recommended in the following populations: [address] Individuals with unstable creatinine concentrations, including [...] Total 0.3 mg/dL 0.2 - 1.3 03/31 [facility] CHEM PANEL ALT 16 unit/L 0 - 65 03/[address] CHEM PANEL AST 10 unit/L 0 - 37 03/[address] CHEM PANEL Total 6.5 g/dL 6.4 - 8.4 03/31 [facility] CHEM PANEL Alk Phos 67 unit/L 39 - 136 03/[address] CHEM PANEL Albumin Lvl 2.8 g/dL 3.5 - 5.0 03/[address] CHEM PANEL BUN 14 mg/dL 7 - 22 03/[address] CHEM PANEL Glucose Lvl 100 mg/dL 70 - 99 03/[address] CHEM PANEL Sodium Lvl 144 meq/L 135 - 145 03/[address] CHEM PANEL Potassium 4.1 meq/L 3.5 - 5.1 03/31 [facility] /[address] [place] [address] CHEM PANEL Creatinine 0.57 mg/dL 0.50 - 03/31 [facility] Lvl 1.40 [facility] CHEM PANEL CO2 25 meq/L 24 - 32 03/[address] CHEM PANEL Chloride Lvl 110 meq/L 95 - 109 03/[address] CHEM PANEL Calcium Lvl 8.9 mg/dL 8.5 - 10.5 03/[address] HEMATOLOGY Eosinophils 0.1 K/CMM 0.0 - 0.5 03/[address] HEMATOLOGY Smudge Moderate None Seen 03/31 [facility] [address] [place], [place] [address]ABN* [place] (03/31/18 3:54 AM) HEMATOLOGY Anisocyte 1+ None Seen 03/31 [address] [place] (03/31/18 3:54 AM) HEMATOLOGY Eosinophils 0.8 % 0.0 - 4.0 03/[address] HEMATOLOGY Monocytes # 0.1 K/CMM 0.0 - 0.8 03/[address] HEMATOLOGY Lymphocytes 16.5 K/CMM 1.0 - 5.5 03/[address] HEMATOLOGY Segs-Bands # 0.7 K/CMM 1.5 - 8.1 03/[address] HEMATOLOGY Basophils 0.1 % 0.0 - 1.0 03/[address] HEMATOLOGY Monocytes 0.5 % 2.0 - 12.0 03/[address] HEMATOLOGY Lymphocytes 94.4 % 20.0 - 03/31 [facility] 40.0 [facility] HEMATOLOGY Segs 4.2 % 45.0 - 03/31 [facility] 75.0 [facility] HEMATOLOGY Plt Morph Normal 03/[address] (03/31/18 3:54 AM) Center HEMATOLOGY Hgb 7.4 g/dL 12.0 - 03/31 16.0 [facility] HEMATOLOGY RBC 2.21 M/CMM 4.20 - 03/31 5.40 /2017 [facility] HEMATOLOGY WBC 17.5 K/CMM 3.7 - 10.4 03/31 [facility] HEMATOLOGY Platelet 41 K/CMM 133 - 450 03/31 [facility] HEMATOLOGY RDW 21.9 % 11.5 - 03/31 14.5 [facility] HEMATOLOGY MCHC 33.6 g/dL 32.0 - 03/31 [place] 36.0 [facility] HEMATOLOGY MCV 99.9 fL 80.0 - 03/31 98.0 [facility] HEMATOLOGY MCH 33.5 pg 27.0 - 03/31 31.0 [facility] HEMATOLOGY Hct 22.1 % 36.0 - 03/31 [facility] 48.0 [facility] HEMATOLOGY MPV 11.1 fL 7.4 - 10.4 03/31 2017 [facility] CHEM PANEL eGFR 92 03/30 Result Comment: The eGFR is calculated using the CKD-EPI formula. In most young, healthy individuals the eGFR will be >90 mL/ min/1.73m2. The eGFR declines with age. An eGFR of 60-89 may be normal in [facility] mL/min/1. some populations, particularly the elderly, for whom the CKD-EPI formula has not been extensively validated. Use of the eGFR is not recommended in the following populations: [address] Individuals with unstable creatinine concentrations, including [...] Total 0.2 mg/dL 0.2 - 1.3 03/30 [facility] CHEM PANEL ALT 18 unit/L 0 - 65 03/30 [facility]2017 [facility] CHEM PANEL Albumin Lvl 3.4 g/dL 3.5 - 5.0 03/30 [facility]2017 [facility] CHEM PANEL Total 6.7 g/dL 6.4 - 8.4 03/30 [facility] [place] [facility] CHEM PANEL Alk Phos 73 unit/L 39 - 136 03/30 [facility] CHEM PANEL AST 9 unit/L 0 - 37 03/30 [facility] CHEM PANEL Calcium Lvl 8.6 mg/dL 8.5 - 10.5 03/30 [facility]2017 [facility] CHEM PANEL CO2 25 meq/L 24 - 32 03/30 [facility] CHEM PANEL Sodium Lvl 141 meq/L 135 - 145 03/30 [facility] CHEM PANEL Creatinine 0.66 mg/dL 0.50 - 03/30 [place] Lvl 1.40 /2017 [facility] CHEM PANEL BUN 14 mg/dL 7 - 03/30 [facility]2017 [facility] CHEM PANEL Glucose Lvl 110 mg/dL 70 - 99 03/30 [facility]2017 [facility] CHEM PANEL Potassium 3.9 meq/L 3.5 - 5.1 03/30 [facility] /2017 [facility] CHEM PANEL Chloride Lvl 107 meq/L 95 - 109 03/30 [facility] CHEM PANEL A/G Ratio 1.0 0.7 - 1.6 03/30 [facility] [address] [place] [address] CHEM PANEL Globulin 3.3 g/dL 2.7 - 4.2 03/30 [facility] CHEM PANEL AGAP 12.9 meq/L 10.0 - 03/30 20.0 [facility] CHEM PANEL B/C Ratio 21 6 - 25 03/[address] HEMATOLOGY MCHC 34.4 g/dL 32.0 - 03/30 36.0 [facility] HEMATOLOGY MCH 34.1 pg 27.0 - 03/30 31.0 [facility] HEMATOLOGY MPV 10.7 fL 7.4 - 10.4 03/30 [facility] HEMATOLOGY Platelet 41 K/CMM 133 - 450 03/30 [facility] HEMATOLOGY RDW 22.1 % 11.5 - 03/30 14.5 [facility] HEMATOLOGY MCV 99.2 fL 80.0 - 03/30 98.0 [facility] HEMATOLOGY Hct 23.9 % 36.0 - 03/30 48.0 [facility] HEMATOLOGY Hgb 8.2 g/dL 12.0 - 03/30 16.0 [facility] HEMATOLOGY WBC 14.6 K/CMM 3.7 - 10.4 03/[address] HEMATOLOGY RBC 2.41 M/CMM 4.20 - 03/30 [facility] 5.40 [facility] HEMATOLOGY Segs 4.7 % 45.0 - 03/30 [facility] 75.0 [facility] HEMATOLOGY Lymphocytes 93.5 % 20.0 - 03/30 [facility] 40.0 [facility] HEMATOLOGY Monocytes 0.6 % 2.0 - 12.0 03/[address] HEMATOLOGY Eosinophils 1.1 % 0.0 - 4.0 03/[address] HEMATOLOGY Monocytes # 0.1 K/CMM 0.0 - 0.8 03/[address] HEMATOLOGY Basophils 0.1 % 0.0 - 1.0 03/[address] HEMATOLOGY Lymphocytes 13.7 K/CMM 1.0 - 5.5 03/[address] HEMATOLOGY Segs-Bands # 0.7 K/CMM 1.5 - 8.1 03/[address] HEMATOLOGY Anisocyte 1+ None Seen 03/[address] *ABN* [place] (03/30/18 5:34 AM) HEMATOLOGY Smudge Moderate None Seen 03/30 [address] [place] (03/30/18 5:34 AM) HEMATOLOGY Eosinophils 0.2 K/CMM 0.0 - 0.5 03/[address] HEMATOLOGY Plt Morph Normal 03/[address] (03/30/18 5:34 AM) [place] HEMATOLOGY Retic Auto 1.0 % 0.5 - 1.5 03/[address] HEMATOLOGY Eosinophils 0.1 K/CMM 0.0 - 0.5 03/[address] HEMATOLOGY Eosinophils 0.8 % 0.0 - 4.0 03/[address] Bone Marrow Bone Marrow EXAM: VIR Bone Marrow Biopsy with CT Guidance - [facility] Bio/Aspr CT Bio/Aspr CT /2017 - Medical DATE: 03/29/2018 8:26 AM CDT This report was dictated by a Hygiene Teacher/Fellow. I have personally reviewed the images as Center well as the Resident's interpretation and agree with the findings. INDICATION: 68 years old Female with CLL. Read by: Luan Gunn MD Resident: Luan Gunn MD Dictated Date/time: 03/29/18 10:39 PROCEDURE(S) PERFORMED: CT guided bone marrow aspirate and trephine biopsy. Electronically Signed by: Fran Tobin MD 04/01/18 20:42 FINAL REPORT FACULTY: Fran Tobin MD RESIDENT/FELLOW/FREELANCE INTERPRETER/TRANSLATOR: Luan Gunn M.D. ANESTHESIA/SEDATION: Moderate sedation PHYSICIAN [...] was present for the procedure. CHEM PANEL L-2-Ntatjzxl 3.5 mg/L 1.0 - 2.3 03/[address] CHEM PANEL LDH 165 unit/L 98 - 192 03/[address] CHEM PANEL Uric Acid 4.9 mg/dL 2.5 - 7.0 03/[address] HEMATOLOGY PB Smear Peripheral 03/28 [facility] blood /[address] [place] [address] smear Center shows macrocytic hypochromi c anemia with slight polychroma roxana, and moderate thrombocyt openia with normal morphology of platelets. Leukocytes are moderately increased with lymphocyto sis and neutropeni a; the lymphocyte s are small, and display markedly clumped chromatin. A few smudge cells are also seen.Per the EMR, the patient was diagnosed with chronic lymphocyti c leukemia in 2017, with outside oncology follow-up, without treatment. The current findings are consistent with the history.CP T: 81335 CHEM PANEL Phosphorus 3.7 mg/dL 2.5 - 4.5 03/[address] CHEM PANEL Magnesium 2.2 mg/dL 1.8 - 2.4 03/28 [facility] Lvl [facility] HEMATOLOGY Atypical 0.0 % <=0.0 % 03/28 [facility] Lymphs /2017 [facility] HEMATOLOGY Bands 0.0 % 0.0 - 11.0 03/[address] HEMATOLOGY PTT 29.3 s 22.9 - 03/28 [facility] 35.8 [facility] HEMATOLOGY PT 13.6 s 12.0 - 03/28 [facility] 14.7 [facility] HEMATOLOGY INR 1.04 0.85 - 03/28 [facility] 1.17 [facility] Chest 1view Chest 1view EXAM: XR CHEST 1 VIEW 03/27 [facility] DX DX 2017 [facility] DATE: 03/27/2018 7:58 PM CDT Read by: [...] Date Comments Source Heart Rate 80 04/02/2018 [facility] Systolic (mm Hg) 120 04/02/2018 [facility] Diastolic (mm Hg) 71 04/02/2018 [facility] Temperature Oral (F) 98.9 F 04/02/2018 [facility] Respitory Rate 20 04/02/2018 [facility] Heart Rate 78 04/02/2018 [facility] Temperature Oral (F) 99.2 F 04/02/2018 [facility] Systolic (mm Hg) 113 04/02/2018 [facility] Diastolic (mm Hg) 67 04/02/2018 [facility] Systolic (mm Hg) 126 04/02/2018 [facility] Diastolic (mm Hg) 67 04/02/2018 [facility] Heart Rate 73 04/02/2018 [facility] Respitory Rate 18 04/02/2018 [facility] Temperature Oral (F) 98 F 04/02/2018 [facility] Respitory Rate 18 04/02/2018 [facility] BMI Calculated 38.88 03/27/2018 [facility] Weight 99.545 03/27/2018 [facility] Height 160.02 cm 03/27/2018 [facility] BMI Calculated 38.7 03/27/2018 [facility] Height 160.02 cm 03/27/2018 [facility] Weight 99.091 03/27/2018 [facility] Encounters Location Location Encounter Encounter Reason Attending ADM DC Status Source Details Type Number For Provider Date Date Visit [facility] [id number] Non 03/27 04/02 [facility] Dereje Physician /2017 [facility] Procedures Procedure Code Date Perfomer Comments Source 03/29/2018 [facility] Biopsy, bone, 03/29/2018 [facility] trocar, [facility] needle; deep (eg, vertebral body, femur)
[2018-05-28 22:14] LABS: Absolute Lymphocytes (CBC) 27.8 K/uL (0.7-4.9); Absolute Monocytes 0.2 K/uL (0.1-1.3); Absolute Neutrophil 0.9 K/uL (1.8-8.0); Basophils % 0.1 % (0-1.3); Eosinophils % 0.7 % (0-4.4); Hematocrit 23.8 % (36.0-45.0); Lymphocytes % 95.4 % (15.3-44.8); MCH 32.5 pg (27.0-35.0); MCV 96.2 fL (80-100); MPV 10.6 fL (7.6-11.3); Monocytes % 0.7 % (3.3-12.3); RBC Red Blood Cell Count 2.48 M/uL (3.86-4.86)
[2018-05-28 22:20] LABS: Protime INR 1.03
--- NOTE | 2018-05-28 22:26 | RAD REPORT ---
EXAM DESCRIPTION: RAD - Chest Single View - 05/28/2018 10:20 pm CLINICAL HISTORY: DYSPNEA Chest pain. COMPARISON: Chest Single View dated 05/11/2018; Chest Single View dated 03/25/2018; Chest Single View d ated 02/07/2018; Chest Single View dated 11/05/2017 FINDINGS: Portable technique limits examination quality. The lungs are grossly clear. The heart is normal in size. No displaced fractures. IMPRESSION: No acute intrathoracic process suspected.
[2018-05-28 22:38] LABS: ALT/SGPT 22 U/L (12-78); AST/SGOT 17 U/L (15-37); Albumin 3.4 g/dL (3.4-5.0); Alkaline Phosphatase 73 U/L (45-117); BUN Blood Urea Nitrogen 13 mg/dL (7-18); Bicarbonate 25 mmol/L (21-32); Bilirubin Direct < 0.1 mg/dL (0-0.2); Bilirubin Total 0.2 mg/dL (0.2-1.0); CKMB Creatine Kinase MB < 1.0 ng/mL (0.3-3.6); Creatine Phosphokinase 44 U/L (26-192); Glucose Level 113 mg/dL (74-106); Magnesium 2.2 mg/dL (1.8-2.4); NT PRO-BNP 104 pg/mL (<125); Potassium 3.7 mmol/L (3.5-5.1); Protein, Total 6.8 g/dL (6.4-8.2); Sodium Level 140 mmol/L (136-145)
[2018-05-28 22:50] LABS: Platelet Estimate DECR; Smudge Cells PRESENT
[2018-05-28 22:52] LABS: Blood Morphology Comment NOT SEEN (NOT SEEN)
--- NOTE | 2018-05-28 23:18 | ER ---
Nurse's Notes [facility] Name: Lisy Betts Age: 68 yrs Sex: Female : 1950 Arrival Date: 05/28/2018 Time: 21:28 Bed 18 Private MD: Diagnosis: Dyspnea, unspecified;Anemia in neoplastic disease Presentation: 05/28 21:42 Presenting complaint: Patient states: chest pain, generalized weakness, SOB this sr5 evening after walking out from a movie "I think maybe my blood level is low". Reports history of blood transfusions related to leukemia per patient report. Skin pale, warm/dry. AA\\T\\Ox4, equal unlabored resp, EKG done in triage. Transition of care: patient was not received from another setting of care. Onset of symptoms was May 28, 2018. Risk Assessment: Do you want to hurt yourself or someone else? Patient reports no desire to harm self or others. Initial Sepsis Screen: Does the patient meet any 2 criteria? No. Patient's initial sepsis screen is negative. Does the patient have a suspected source of infection? No. Patient's initial sepsis screen is negative. Care prior to arrival: None. 21:42 Method Of Arrival: Ambulatory sr5 21:42 Acuity: ARNOLD 2 sr5 Triage Assessment: 21:42 General: Appears uncomfortable, Behavior is calm, cooperative. Pain: Complains of pain sr5 in chest Quality of pain is described as heavy. Neuro: No deficits noted. Cardiovascular: Reports chest pain, shortness of breath, Patient's skin is warm and dry. skin pale. Respiratory: Reports shortness of breath on exertion Respiratory effort is even, unlabored, Respiratory pattern is regular, symmetrical, Onset: The symptoms/episode began/occurred today, the patient has mild shortness of breath. Historical: - Allergies: 22:20 ceftriaxone; ak1 22:20 PENICILLINS; ak1 22:20 Prednisone; ak1 - PMHx: 22:20 CLL; Pulmonary Embolism; UTI; ak1 - PSHx: 22:20 Hysterectomy; ak1 - Immunization history:: Adult Immunizations unknown. - Social history:: Smoking status: Patient/guardian denies using tobacco. - Ebola Screening: : No symptoms or risks identified at this time. Screenin:15 Abuse screen: Denies threats or abuse. Denies injuries from another. Nutritional ak1 screening: No deficits noted. Tuberculosis screening: No symptoms or risk factors identified. Fall Risk None identified. Assessment: 22:13 General: Appears in no apparent distress. Behavior is calm, cooperative, quiet. Pain: ak1 Complains of pain in chest. Neuro: No deficits noted. Cardiovascular: Reports chest pain, lightheadedness, shortness of breath, Rhythm is regular. Respiratory: Airway is patent Trachea midline Respiratory effort is even, unlabored, Respiratory pattern is regular, Breath sounds are clear bilaterally. GI: No signs and/or symptoms were reported involving the gastrointestinal system. : No signs and/or symptoms were reported regarding the genitourinary system. EENT: No signs and/or symptoms were reported regarding the EENT system. Derm: No signs and/or symptoms reported regarding the dermatologic system. Musculoskeletal: No signs and/or symptoms reported regarding the musculoskeletal system. 23:05 Reassessment: Patient appears in no apparent distress at this time. No changes from ak1 previously documented assessment. Patient is alert, oriented x 3, equal unlabored respirations, skin warm/dry/pink. pt resting comfortably in ER18. Vital Signs: 21:42 BP 134 / 64; Pulse 75; Resp 18; Temp 99.1; Pulse Ox 98% on R/A; sr5 23:05 BP 114 / 51; Pulse 67; Resp 20; Temp 99.1; Pulse Ox 96% on R/A; Pain 0/10; ak1 ED Course: 21:28 Patient arrived in ED. es 21:38 Benjie Donaldson MD is Attending Physician. tw4 21:38 Julieta Oliva, RN is Primary Nurse. ak1 21:42 Arm band placed on Patient placed on a stretcher, on oven tender, on pulse sr5 oximetry. EKG completed in triage. Results shown to MD. 21:44 Triage completed. sr5 22:12 Patient has correct armband on for positive identification. Placed in gown. Bed in low ak1 position. Call light in reach. Side rails up X 1. manager digital ad operations on. Pulse ox on. NIBP on. Door closed. Lights dimmed. Warm blanket given. Pillow given. Consent for blood and/or blood product transfusion explained by staff, signed by patient. 22:12 Initial lab(s) drawn, by me, sent to lab. EKG done, by ED staff, reviewed by Benjie Donaldson MD T\\T\\S collected, blood band applied to patient. Inserted saline lock: 20 gauge in right antecubital area, using aseptic technique. Blood collected. 22:20 XRAY Chest (1 view) In Process Unspecified. EDMS 22:36 X-ray completed. Portable x-ray completed in exam room. Patient tolerated procedure kp1 well. 23:43 No provider procedures requiring assistance completed. IV discontinued, intact, ak1 bleeding controlled, No redness/swelling at site. Pressure dressing applied. Administered Medications: No medications were administered Outcome: 23:17 Discharge ordered by . tw4 23:43 Discharged to home ambulatory. ak1 23:43 Condition: improved 23:43 Discharge instructions given to patient, Instructed on discharge instructions, follow up and referral plans. Demonstrated understanding of instructions, follow-up care. 05/29 00:01 Patient left the ED. ak1 Signatures: Dispatcher [employer] EDNH Ofe Jacobs Amber, RN RN ak1 Brandon Mathias, RN RN sr5 Shae Dimas 1 Benjie Donaldson MD MD tw4
--- NOTE | 2018-05-28 23:18 | EDPHYS ---
Physician Documentation [facility] Name: Lisy Betts Age: 68 yrs Sex: Female : 1950 Arrival Date: 05/28/2018 Time: 21:28 Bed 18 Private MD: ED Physician Benjie Donaldson HPI: 05/29 07:08 This 68 yrs old Female presents to ER via Ambulatory with complaints of tw4 Shortness Of Breath, Chest discomfort. 07:08 The patient has shortness of breath with light activity. Onset: The symptoms/episode tw4 began/occurred gradually, today. Duration: The symptoms are intermittent. The patient's shortness of breath has no apparent modifying factors. Severity of symptoms: At their worst the symptoms were mild in the emergency department the symptoms have improved. The patient has experienced similar episodes in the past, a few times. Historical: - Allergies: 05/28 22:20 ceftriaxone; ak1 22:20 PENICILLINS; ak1 22:20 Prednisone; ak1 - PMHx: 22:20 CLL; Pulmonary Embolism; UTI; ak1 - PSHx: 22:20 Hysterectomy; ak1 - Immunization history:: Adult Immunizations unknown. - Social history:: Smoking status: Patient/guardian denies using tobacco. - Ebola Screening: : No symptoms or risks identified at this time. ROS: 05/29 07:08 Constitutional: Negative for fever, chills, and weight loss, Cardiovascular: Negative tw4 for chest pain, palpitations, and edema, Abdomen/GI: Negative for abdominal pain, nausea, vomiting, diarrhea, and constipation, Back: Negative for injury and pain, MS/Extremity: Negative for injury and deformity, Skin: Negative for injury, rash, and discoloration, Neuro: Negative for headache, weakness, numbness, tingling, and seizure. Respiratory: Positive for dyspnea on exertion, shortness of breath, on exertion. Negative for cough, orthopnea, pleurisy, sputum production, wheezing. Exam: 07:08 Constitutional: This is a well developed, well nourished patient who is awake, alert, tw4 and in no acute distress. Head/Face: Normocephalic, atraumatic. Chest/axilla: Normal chest wall appearance and motion. Nontender with no deformity. No lesions are appreciated. Cardiovascular: Regular rate and rhythm with a normal S1 and S2. No gallops, murmurs, or rubs. Normal PMI, no JVD. No pulse deficits. Respiratory: Lungs have equal breath sounds bilaterally, clear to auscultation and percussion. No rales, rhonchi or wheezes noted. No increased work of breathing, no retractions or nasal flaring. Abdomen/GI: Soft, non-tender, with normal bowel sounds. No distension or tympany. No guarding or rebound. No evidence of tenderness throughout. MS/ Extremity: Pulses equal, no cyanosis. Neurovascular intact. Full, normal range of motion. Neuro: Awake and alert, GCS 15, oriented to person, place, time, and situation. Cranial nerves II-XII grossly intact. Motor strength 5/5 in all extremities. Sensory grossly intact. Cerebellar exam normal. Normal gait. Psych: Awake, alert, with orientation to person, place and time. Behavior, mood, and affect are within normal limits. Vital Signs: 05/28 21:42 BP 134 / 64; Pulse 75; Resp 18; Temp 99.1; Pulse Ox 98% on R/A; sr5 23:05 BP 114 / 51; Pulse 67; Resp 20; Temp 99.1; Pulse Ox 96% on R/A; Pain 0/10; ak1 MDM: 21:38 Patient medically screened. tw4 05/29 07:08 Differential diagnosis: Anemia asthma, Myocardial Infarction pneumonia, Pneumothorax tw4 pulmonary edema, Sepsis Unstable Angina. Data reviewed: vital signs, nurses notes. Data interpreted: Pulse oximetry: Interpretation: normal. Counseling: I had a detailed discussion with the patient and/or guardian regarding: the historical points, exam findings, and any diagnostic results supporting the discharge/admit diagnosis. Special discussion: Based on the patient's history, exam and DX evaluation, there is no indication for emergent intervention or inpatient TX. It is understood by the patient/guardian that if the SXs persist or worsen they need to return immediately for re-evaluation. 05/28 21:39 Order name: Basic Metabolic Panel; Complete Time: 23:21 tw4 05/28 21:39 Order name: CBC with Diff; Complete Time: 23:21 tw4 05/28 23:33 Interpretation: Normal except: WBC 29.2; RBC 2.48; HGB 8.0; HCT 23.8; LYM% 95.4; RDW tw4 17.3; JACQUIE% 3.1; MN% 0.7; NEUT A 0.9. 05/28 21:39 Order name: Ckmb; Complete Time: 23:21 4 05/28 21:39 Order name: CPK; Complete Time: 23:21 tw05/28 23:33 Interpretation: Within normal limits: CPK 44. 05/28 21:39 Order name: LFT's; Complete Time: 23:21 tw4 05/28 23:33 Interpretation: Normal except: A/G 1.0. 05/28 21:39 Order name: Magnesium; Complete Time: 23:21 tw4 05/28 21:39 Order name: NT PRO-BNP; Complete Time: 23:21 tw05/28 21:39 Order name: PT-INR; Complete Time: 23:21 05/28 21:39 Order name: Ptt, Activated; Complete Time: 23:21 05/28 21:39 Order name: Troponin (emerg Dept Use Only); Complete Time: 23:21 tw4 05/28 21:39 Order name: XRAY Chest (1 view); Complete Time: 23:21 tw4 05/28 21:39 Order name: EKG; Complete Time: 21:39 tw4 05/28 21:43 Order name: Type And Screen; Complete Time: 23:21 ak1 05/28 22:50 Order name: Manual Differential; Complete Time: 23:21 EDMS 05/28 21:39 Order name: Cardiac monitoring; Complete Time: 21:43 05/28 21:39 Order name: EKG - Nurse/Tech; Complete Time: 21:43 tw4 05/28 21:39 Order name: IV Saline Lock; Complete Time: 22:12 tw4 05/28 21:39 Order name: Labs collected and sent; Complete Time: 22:12 05/28 21:39 Order name: O2 Per Protocol; Complete Time: 21:40 tw4 05/28 21:39 Order name: O2 Sat Monitoring; Complete Time: 21:40 tw4 EC/20 21:46 Rate is 89 beats/min. Rhythm is regular. QRS Braham is Normal. CA interval is normal. QRS tw4 interval is normal. QT interval is normal. No Q waves. T waves are Normal. No ST changes noted. Clinical impression: Normal ECG. Interpreted by me. Reviewed by me. Administered Medications: No medications were administered Disposition: 05/28/18 23:17 Discharged to Home. Impression: Dyspnea, unspecified, Anemia in neoplastic disease. - Condition is Stable. - Discharge Instructions: Anemia, Nonspecific, Shortness of Breath, [id number]. - Medication Reconciliation Form, Thank You Letter, Antibiotic Education, Prescription Opioid Use form. - Follow up: Private Physician; When: Upon discharge from the Emergency Department; Reason: Further diagnostic work-up, Recheck today's complaints, Continuance of care, Re-evaluation by your physician. - Problem is new. - Symptoms have improved. Signatures: Dispatcher [employer] EDJulieta Crawford RN RN ak1 Benjie Donaldson MD MD tw4 Corrections: (The following items were deleted from the chart) 05/29 00:01 05/28 23:17 05/28/2018 23:17 Discharged to Home. Impression: Dyspnea, unspecified; ak1 Anemia in neoplastic disease. Condition is Stable. Forms are Medication Reconciliation Form, Thank You Letter, Antibiotic Education, Prescription Opioid Use. Follow up: Private Physician; When: Upon discharge from the Emergency Department; Reason: Further diagnostic work-up, Recheck today's complaints, Continuance of care, Re-evaluation by your physician. Problem is new. Symptoms have improved. tw4
[2018-05-29 00:24] VITALS: TEMP 99.1
[2018-05-29 00:25] VITALS: BP 114/51; O2SAT 96
--- NOTE | 2018-05-29 12:47 | EKG ---
Test Date: 2018-05-28 Test Time: 21:33:16 Sand Screener Operator: EVY MEASUREMENT RESULTS: Intervals: Rate: 89 SC: 148 QRSD: 80 QT: 380 QTc: 462 [place]: P: SC: 148 QRS: 19 T: 66 INTERPRETIVE STATEMENTS: Normal sinus rhythm Normal ECG Compared to ECG 05/11/2018 00:45:44 No significant changes Electronically Signed On 05-29-18 12:44:28 CDT by Markos Barragan
== END 2018-05-29 00:01 | disposition home or self-care (01) ==
LOC: ER 21:25
DX: C91.10 Chronic lymphocytic leukemia of B-cell type not having achieved remission (principal); D63.0 Anemia in neoplastic disease; Z88.0 Allergy status to penicillin; Z88.8 Allergy status to other drugs, medicaments and biological substances
CPT/HCPCS: 36415; 71045; 80048; 80076; 82550; 82553; 83735; 83880; 84484; 85025; 85610; 85730; 86850; 86900; 86901; 93005; 99284

== ENCOUNTER 2018-06-02 17:11 | Observation (INO) | payer OTHER ==
--- OUTSIDE RECORDS SUMMARY | 2018-06-02 18:06 | XMS REPORT | Continuity of Care Document ---
:1950 Author Organization Interface Problems Problem Status Onset Classification Date Comments Source Date Reported ANEMIA, Active 05/16/20 [facility] THROMBOCYTOPENIA, [address] [place] [address] LEUKEMIA WEAKNESS Active 05/16/[address] CHRONIC Active 03/27/20 [facility] LYMPHOBLASTIC [address] [place] [address] LEUKEMIA Center ANEMIA, Active [facility] UNSPECIFIED [facility] LEUKEMIA, Active [facility] HAVING ACHIEVE THROMBOCYTOPENIA, Active [facility] UNSPECIFIED [facility] Medications Medication Details Route Status Patient Ordering Order Source Instructions Provider Date Melatonin 3 MG 3 mg, 1 tab, No Longer [facility] Extended Route: PO, Active 018 Medical Release Tablet Drug Form: Center TAB, Dosing Weight 99.545, kg, Bedtime, Start date: 03/31/18 21:00:00 CDT, Duration: 30 day, Stop date: 04/29/18 21:00:00 CDTNotes: (Same as: Melatonin) Levaquin 750 mg, 1 tab, No Longer [facility] Route: PO, Active 018 Medical Drug form: Center TAB, [id number], Dosing Weight 99.545, kg, Start date: 03/30/18 20:00:00 CDT, Duration: 5 day, Stop date: 04/03/18 20:00:00 CDT, ABX Indication: PneumoniaNotes : Do not give w/antacids, dairy pdt & minerals Take 1 hr before or 2 hr after dairy products Fentanyl 50 microgram, Inactive [facility] Route: IV, 018 Medical ONCE, Dosing Center Weight 99.545, kg, Start date: 03/29/18 9:31:00 CDT, Stop date: 03/29/18 9:31:00 CDT Midazolam 1 mg, Route: Inactive [facility] IV, ONCE, 018 Medical Dosing Weight Center 99.545, kg, Start date: 03/29/18 9:16:00 CDT, Stop date: 03/29/18 9:16:00 CDT Fentanyl 50 microgram, Inactive [facility] Route: IV, 018 Medical ONCE, Dosing Center Weight 99.545, kg, Start date: 03/29/18 9:16:00 CDT, Stop date: 03/29/18 9:16:00 CDT Ibuprofen 200 200 mg, 1 tab, Inactive [place] [facility] Oral Tablet Route: PO, 018 Medical Drug form: [place] TAB, ONCE, Dosing Weight 99.545, kg, Start date: 03/28/18 20:45:00 CDT, Stop date: 03/28/18 20:45:00 CDTNotes: (Same as: Advil) Give with food. Tylenol 650 mg, 2 tab, No Longer [facility] Route: PO, Active 018 Medical Drug form: [place] TAB, Q6H, Dosing Weight 99.545, kg, PRN For Temp > 100.4 F, Start date: 03/28/18 14:31:00 CDT, Duration: 30 day, Stop date: 04/27/18 14:30:00 CDTNotes: Do not exceed 4 gm/day. (Same as: Tylenol) Merrem 500 mg, Route: No Longer [facility] IVPB, Drug Active 018 Medical form: PDR/INJ, Center [id number], Dosing Weight 99.545, kg, CrCL=30 -49 ml/min, Extended infusion, infuse over 3 hours, Start date: 03/28/18 9:00:00 CDT, Stop date: 04/06/18 19:00:00 CDT, ABX Indication: PneumoniaNotes : Same as Merrem MEDICATION WASTE Product Size: 500 mg Product Wasted: ___ mg Docusate 100 mg, 1 cap, No Longer [facility] Route: PO, Active 018 Medical Drug form: [place] CAP, BID, Dosing Weight 99.545, kg, Start date: 03/28/18 9:00:00 CDT, Duration: 30 day, Stop date: 04/26/18 17:00:00 CDTNotes: (Same as: Colace) (Do Not Crush) Tessalon 100 mg, 1 cap, No Longer [facility] Perljoya Route: PO, Active 018 Medical Drug form: [place] CAP, TID, Dosing Weight 99.545, kg, PRN Cough, Start date: 03/28/18 0:59:00 CDT, Duration: 30 day, Stop date: 04/27/18 0:58:00 CDTNotes: (Same As: Cherelle Jo) "Do Not Crush" Vancomycin 1.25 gm, No Longer [facility] Route: IVPB, Active 018 Medical [id number], Center Dosing Weight 99.545, kg, Start date: 03/27/18 21:00:00 CDT, Stop date: 04/06/18 9:00:00 CDT, ABX Indication: PneumoniaNotes : TIME CRITICAL MEDICATION (Same As: Vancocin) Infusion rate 2001 mg: infuse over 2.5 hours For adult patients only: Round to nearest 250 mg per Medical Staff approval MEDICATION WASTE Product Size: 1000 mg Product Wasted: ___ mg Zosyn 3.375 gm, Inactive [facility] Route: IVPB, 018 Medical Drug form: Center PDR/INJ, ABXQ8H, Dosing Weight 99.545, kg, CrCl >=20 ml/min infuse over 4 hours, Start date: 03/27/18 20:00:00 CDT, Duration: 10 day, Stop date: 04/06/18 12:00:00 CDT, ABX Indication: PneumoniaNotes : (Same as: Zosyn) Dosing based on Piperacillin component MEDICATION WASTE Product Size: 3375 mg Product Wasted: ___ mg Naproxen 500 mg, 1 tab, No Longer [facility] Route: PO, Active 018 Medical Drug form: Center TAB, [id number], Dosing Weight 99.545, kg, Start date: 03/27/18 20:00:00 CDT, Duration: 30 day, Stop date: 04/26/18 8:00:00 CDTNotes: (Same as: Naprosyn) Take with food. Merrem 500 mg, Route: Inactive [facility] IVPB, Drug 018 Medical form: PDR/INJ, Center ABXQ8H, Dosing Weight 99.545, kg, CrCL=30 -49 ml/min, Extended infusion, infuse over 3 hours, Start date: 03/27/18 20:00:00 CDT, Duration: 10 day, Stop date: 04/06/18 12:00:00 CDT, ABX Indication: PneumoniaNotes : Same as Merrem MEDICATION WASTE Product Size: 500 mg Product Wasted: ___ mg Ondansetron 4 mg, 2 mL, No Longer [facility] Route: IVP, Active 018 Medical Drug [...] Source type Reported penicillins Assertion Drug Active [facility] predniSONE Assertion Drug Active [facility] cefTRIAXone Assertion Drug Active [facility] Immunizations Immunization Date Given Site Status Last Updated Comments Source Results Order Name Results Value Reference Date Interpretation Comments Source Range Chest 1view Chest 1view 05/16 [facility] DX [facility] Read by: Matt Rueda MD Dictated Date/time: [...] A/G Ratio 0.8 0.7 - 1.6 04/[address] CHEM PANEL B/C Ratio 20 6 - 25 04/[address] CHEM PANEL Globulin 3.6 g/dL 2.7 - 4.2 04/[address] CHEM PANEL AGAP 10.2 meq/L 10.0 - 04/01 [facility] 20.0 [facility] CHEM PANEL eGFR 92 04/01 Result Comment: The eGFR is calculated using the CKD-EPI formula. In most young, healthy individuals the eGFR will be >90 mL/ min/1.73m2. The eGFR declines with age. An eGFR of 60-89 may be normal in [facility] mL/min/1. some populations, particularly the elderly, for whom the CKD-EPI formula has not been extensively validated. Use of the eGFR is not recommended in the following populations: [address] Individuals with unstable creatinine concentrations, including [...] Phos 67 unit/L 39 - 136 04/[address] CHEM PANEL Bili Total 0.3 mg/dL 0.2 - 1.3 04/[address] CHEM PANEL ALT 16 unit/L 0 - 65 04/[address] CHEM PANEL AST 12 unit/L 0 - 37 04/[address] CHEM PANEL Albumin Lvl 2.8 g/dL 3.5 - 5.0 04/[address] CHEM PANEL Creatinine 0.66 mg/dL 0.50 - 04/01 [facility] Lvl 1.40 [facility] CHEM PANEL Sodium Lvl 141 meq/L 135 - 145 04/[address] CHEM PANEL Total 6.4 g/dL 6.4 - 8.4 04/01 [facility] Protein [address] [place] [address] CHEM PANEL Calcium Lvl 8.6 mg/dL 8.5 - 10.5 04/[address] CHEM PANEL Potassium 4.2 meq/L 3.5 - 5.1 04/01 [facility] CHEM PANEL Chloride Lvl 109 meq/L 95 - 109 04/[address] CHEM PANEL CO2 26 meq/L 24 - 32 04/[address] CHEM PANEL BUN 13 mg/dL 7 - 22 04/[address] CHEM PANEL Glucose Lvl 105 mg/dL 70 - 99 04/01 [facility] [address] [place] [address] HEMATOLOGY Smudge Moderate None Seen 04/01 [facility]* [place] (04/01/18 4:40 AM) HEMATOLOGY Lymphocytes 95.0 % 20.0 - 04/01 [place] 40.0 [facility] HEMATOLOGY Bands 0.0 % 0.0 - 11.0 04/[address] HEMATOLOGY Anisocyte 1+ None Seen 04/01 [facility]* [place] (04/01/18 4:40 AM) HEMATOLOGY Macrocyte 1+ None Seen 04/01 [facility]* [place] (04/01/18 4:40 AM) HEMATOLOGY Plt Morph Normal 04/01 [facility] (04/01/18 4:40 AM) [place] HEMATOLOGY Tot Cell Ct 100 04/01 [facility]2017 [facility] HEMATOLOGY Microcyte 1+ None Seen 04/01 [facility] (04/01/18 4:40 AM) HEMATOLOGY Monocytes 2.0 % 2.0 - 12.0 04/[address] HEMATOLOGY Atypical 0.0 % <=0.0 % 04/01 [facility] Lymphs [facility] HEMATOLOGY Segs-Bands # 0.5 K/CMM 1.5 - 8.1 04/[address] HEMATOLOGY Lymphocytes 16.4 K/CMM 1.0 - 5.5 04/01 [facility] # [facility] HEMATOLOGY Segs 3.0 % 45.0 - 04/01 [place] 75.0 [facility] HEMATOLOGY Monocytes # 0.3 K/CMM 0.0 - 0.8 04/01 [facility]2017 [facility] HEMATOLOGY RBC 2.30 M/CMM 4.20 - 04/01 [place] 5.40 [facility] HEMATOLOGY MCV 100.1 fL 80.0 - 04/01 [place] 98.0 [facility] HEMATOLOGY MCH 33.9 pg 27.0 - 04/01 [place] 31.0 [facility] HEMATOLOGY Platelet 44 K/CMM 133 - 450 04/[address] HEMATOLOGY MPV 11.6 fL 7.4 - 10.4 04/[address] HEMATOLOGY MCHC 33.8 g/dL 32.0 - 04/01 [place] 36.0 [facility] HEMATOLOGY RDW 22.4 % 11.5 - 04/01 [facility] 14.5 [facility] HEMATOLOGY Hgb 7.8 g/dL 12.0 - 04/01 [facility] 16.0 [facility] HEMATOLOGY Hct 23.0 % 36.0 - 04/01 [facility] 48.0 [facility] HEMATOLOGY WBC 17.3 K/CMM 3.7 - 10.4 04/[address] CHEM PANEL B/C Ratio 25 6 - 25 03/[address] CHEM PANEL Globulin 3.7 g/dL 2.7 - 4.2 03/[address] CHEM PANEL AGAP 13.1 meq/L 10.0 - 03/31 [facility] 20.0 [facility] CHEM PANEL A/G Ratio 0.8 0.7 - 1.6 03/[address] CHEM PANEL eGFR 97 03/31 Result Comment: The eGFR is calculated using the CKD-EPI formula. In most young, healthy individuals the eGFR will be >90 mL/ min/1.73m2. The eGFR declines with age. An eGFR of 60-89 may be normal in [facility] mL/min/1.7 some populations, particularly the elderly, for whom the CKD-EPI formula has not been extensively validated. Use of the eGFR is not recommended in the following populations: [address] Individuals with unstable creatinine concentrations, including [...] Total 0.3 mg/dL 0.2 - 1.3 03/31 [facility] CHEM PANEL ALT 16 unit/L 0 - 65 03/[address] CHEM PANEL AST 10 unit/L 0 - 37 03/[address] CHEM PANEL Total 6.5 g/dL 6.4 - 8.4 03/31 [facility] CHEM PANEL Alk Phos 67 unit/L 39 - 136 03/[address] CHEM PANEL Albumin Lvl 2.8 g/dL 3.5 - 5.0 03/[address] CHEM PANEL BUN 14 mg/dL 7 - 22 03/[address] CHEM PANEL Glucose Lvl 100 mg/dL 70 - 99 03/[address] CHEM PANEL Sodium Lvl 144 meq/L 135 - 145 03/[address] CHEM PANEL Potassium 4.1 meq/L 3.5 - 5.1 03/31 [facility] /[address] [place] [address] CHEM PANEL Creatinine 0.57 mg/dL 0.50 - 03/31 [facility] Lvl 1.40 [facility] CHEM PANEL CO2 25 meq/L 24 - 32 03/[address] CHEM PANEL Chloride Lvl 110 meq/L 95 - 109 03/[address] CHEM PANEL Calcium Lvl 8.9 mg/dL 8.5 - 10.5 03/[address] HEMATOLOGY Eosinophils 0.1 K/CMM 0.0 - 0.5 03/[address] HEMATOLOGY Smudge Moderate None Seen 03/31 [facility] [address] [place], [place] [address]ABN* [place] (03/31/18 3:54 AM) HEMATOLOGY Anisocyte 1+ None Seen 03/31 [address] [place] (03/31/18 3:54 AM) HEMATOLOGY Eosinophils 0.8 % 0.0 - 4.0 03/[address] HEMATOLOGY Monocytes # 0.1 K/CMM 0.0 - 0.8 03/[address] HEMATOLOGY Lymphocytes 16.5 K/CMM 1.0 - 5.5 03/[address] HEMATOLOGY Segs-Bands # 0.7 K/CMM 1.5 - 8.1 03/[address] HEMATOLOGY Basophils 0.1 % 0.0 - 1.0 03/[address] HEMATOLOGY Monocytes 0.5 % 2.0 - 12.0 03/[address] HEMATOLOGY Lymphocytes 94.4 % 20.0 - 03/31 [facility] 40.0 [facility] HEMATOLOGY Segs 4.2 % 45.0 - 03/31 [facility] 75.0 [facility] HEMATOLOGY Plt Morph Normal 03/[address] (03/31/18 3:54 AM) Center HEMATOLOGY Hgb 7.4 g/dL 12.0 - 03/31 16.0 [facility] HEMATOLOGY RBC 2.21 M/CMM 4.20 - 03/31 5.40 /2017 [facility] HEMATOLOGY WBC 17.5 K/CMM 3.7 - 10.4 03/31 [facility] HEMATOLOGY Platelet 41 K/CMM 133 - 450 03/31 [facility] HEMATOLOGY RDW 21.9 % 11.5 - 03/31 14.5 [facility] HEMATOLOGY MCHC 33.6 g/dL 32.0 - 03/31 [place] 36.0 [facility] HEMATOLOGY MCV 99.9 fL 80.0 - 03/31 98.0 [facility] HEMATOLOGY MCH 33.5 pg 27.0 - 03/31 31.0 [facility] HEMATOLOGY Hct 22.1 % 36.0 - 03/31 [facility] 48.0 [facility] HEMATOLOGY MPV 11.1 fL 7.4 - 10.4 03/31 2017 [facility] CHEM PANEL eGFR 92 03/30 Result Comment: The eGFR is calculated using the CKD-EPI formula. In most young, healthy individuals the eGFR will be >90 mL/ min/1.73m2. The eGFR declines with age. An eGFR of 60-89 may be normal in [facility] mL/min/1. some populations, particularly the elderly, for whom the CKD-EPI formula has not been extensively validated. Use of the eGFR is not recommended in the following populations: [address] Individuals with unstable creatinine concentrations, including [...] Total 0.2 mg/dL 0.2 - 1.3 03/30 [facility] CHEM PANEL ALT 18 unit/L 0 - 65 03/30 [facility]2017 [facility] CHEM PANEL Albumin Lvl 3.4 g/dL 3.5 - 5.0 03/30 [facility]2017 [facility] CHEM PANEL Total 6.7 g/dL 6.4 - 8.4 03/30 [facility] [place] [facility] CHEM PANEL Alk Phos 73 unit/L 39 - 136 03/30 [facility] CHEM PANEL AST 9 unit/L 0 - 37 03/30 [facility] CHEM PANEL Calcium Lvl 8.6 mg/dL 8.5 - 10.5 03/30 [facility]2017 [facility] CHEM PANEL CO2 25 meq/L 24 - 32 03/30 [facility] CHEM PANEL Sodium Lvl 141 meq/L 135 - 145 03/30 [facility] CHEM PANEL Creatinine 0.66 mg/dL 0.50 - 03/30 [place] Lvl 1.40 /2017 [facility] CHEM PANEL BUN 14 mg/dL 7 - 03/30 [facility]2017 [facility] CHEM PANEL Glucose Lvl 110 mg/dL 70 - 99 03/30 [facility]2017 [facility] CHEM PANEL Potassium 3.9 meq/L 3.5 - 5.1 03/30 [facility] CHEM PANEL Chloride Lvl 107 meq/L 95 - 109 03/30 [facility] CHEM PANEL A/G Ratio 1.0 0.7 - 1.6 03/30 [facility] [address] [place] [address] CHEM PANEL Globulin 3.3 g/dL 2.7 - 4.2 03/30 [facility] CHEM PANEL AGAP 12.9 meq/L 10.0 - 03/30 20.0 [facility] CHEM PANEL B/C Ratio 21 6 - 25 03/[address] HEMATOLOGY MCHC 34.4 g/dL 32.0 - 03/30 36.0 [facility] HEMATOLOGY MCH 34.1 pg 27.0 - 03/30 31.0 [facility] HEMATOLOGY MPV 10.7 fL 7.4 - 10.4 03/30 [facility] HEMATOLOGY Platelet 41 K/CMM 133 - 450 03/30 [facility] HEMATOLOGY RDW 22.1 % 11.5 - 03/30 14.5 [facility] HEMATOLOGY MCV 99.2 fL 80.0 - 03/30 98.0 [facility] HEMATOLOGY Hct 23.9 % 36.0 - 03/30 48.0 [facility] HEMATOLOGY Hgb 8.2 g/dL 12.0 - 03/30 16.0 [facility] HEMATOLOGY WBC 14.6 K/CMM 3.7 - 10.4 03/[address] HEMATOLOGY RBC 2.41 M/CMM 4.20 - 03/30 [facility] 5.40 [facility] HEMATOLOGY Segs 4.7 % 45.0 - 03/30 [facility] 75.0 [facility] HEMATOLOGY Lymphocytes 93.5 % 20.0 - 03/30 [facility] 40.0 [facility] HEMATOLOGY Monocytes 0.6 % 2.0 - 12.0 03/[address] HEMATOLOGY Eosinophils 1.1 % 0.0 - 4.0 03/[address] HEMATOLOGY Monocytes # 0.1 K/CMM 0.0 - 0.8 03/[address] HEMATOLOGY Basophils 0.1 % 0.0 - 1.0 03/[address] HEMATOLOGY Lymphocytes 13.7 K/CMM 1.0 - 5.5 03/[address] HEMATOLOGY Segs-Bands # 0.7 K/CMM 1.5 - 8.1 03/[address] HEMATOLOGY Anisocyte 1+ None Seen 03/[address] *ABN* [place] (03/30/18 5:34 AM) HEMATOLOGY Smudge Moderate None Seen 03/[address] [place] (03/30/18 5:34 AM) HEMATOLOGY Eosinophils 0.2 K/CMM 0.0 - 0.5 03/[address] HEMATOLOGY Plt Morph Normal 03/[address] (03/30/18 5:34 AM) [place] HEMATOLOGY Retic Auto 1.0 % 0.5 - 1.5 03/[address] HEMATOLOGY Eosinophils 0.1 K/CMM 0.0 - 0.5 03/[address] HEMATOLOGY Eosinophils 0.8 % 0.0 - 4.0 03/[address] Bone Marrow Bone Marrow EXAM: VIR Bone Marrow Biopsy with CT Guidance - [facility] Bio/Aspr CT Bio/Aspr CT /2017 - Medical DATE: 03/29/2018 8:26 AM CDT This report was dictated by a [employer] Mechanic/Fellow. I have personally reviewed the images as Center well as the Resident's interpretation and agree with the findings. INDICATION: 68 years old Female with CLL. Read by: Luan Gunn MD Resident: Luan Gunn MD Dictated Date/time: 03/29/18 10:39 PROCEDURE(S) PERFORMED: CT guided bone marrow aspirate and trephine biopsy. Electronically Signed by: Fran Tobin MD 04/01/18 20:42 FINAL REPORT FACULTY: Fran Tobin MD RESIDENT/FELLOW/[employer] APPLICATION DEVELOPER: Luan Gunn M.D. ANESTHESIA/SEDATION: Moderate sedation PHYSICIAN [...] was present for the procedure. CHEM PANEL I-8-Lywjeafs 3.5 mg/L 1.0 - 2.3 03/[address] CHEM PANEL LDH 165 unit/L 98 - 192 03/[address] CHEM PANEL Uric Acid 4.9 mg/dL 2.5 - 7.0 03/[address] HEMATOLOGY PB Smear Peripheral 03/28 [facility] blood /[address] [place] [address] smear Center shows macrocytic hypochromi c anemia [...] findings are consistent with the history.CP T: 93530 CHEM PANEL Phosphorus 3.7 mg/dL 2.5 - 4.5 03/[address] CHEM PANEL Magnesium 2.2 mg/dL 1.8 - 2.4 03/28 [facility] Lvl [facility] HEMATOLOGY Atypical 0.0 % <=0.0 % 03/28 [facility] Lymphs /2017 [facility] HEMATOLOGY Bands 0.0 % 0.0 - 11.0 03/[address] HEMATOLOGY PTT 29.3 s 22.9 - 03/28 [facility] 35.8 [facility] HEMATOLOGY PT 13.6 s 12.0 - 03/28 [facility] 14.7 [facility] HEMATOLOGY INR 1.04 0.85 - 03/28 [facility] 1.17 [facility] Chest 1view Chest 1view EXAM: XR CHEST 1 VIEW 03/27 [facility] DX DX 2017 [facility] DATE: 03/27/2018 7:58 PM CDT Read [...] Date Comments Source Heart Rate 80 04/02/2018 [facility] Systolic (mm Hg) 120 04/02/2018 [facility] Diastolic (mm Hg) 71 04/02/2018 [facility] Temperature Oral (F) 98.9 F 04/02/2018 [facility] Respitory Rate 20 04/02/2018 [facility] Heart Rate 78 04/02/2018 [facility] Temperature Oral (F) 99.2 F 04/02/2018 [facility] Systolic (mm Hg) 113 04/02/2018 [facility] Diastolic (mm Hg) 67 04/02/2018 [facility] Systolic (mm Hg) 126 04/02/2018 [facility] Diastolic (mm Hg) 67 04/02/2018 [facility] Heart Rate 73 04/02/2018 [facility] Respitory Rate 18 04/02/2018 [facility] Temperature Oral (F) 98 F 04/02/2018 [facility] Respitory Rate 18 04/02/2018 [facility] BMI Calculated 38.88 03/27/2018 [facility] Weight 99.545 03/27/2018 [facility] Height 160.02 cm 03/27/2018 [facility] BMI Calculated 38.7 03/27/2018 [facility] Height 160.02 cm 03/27/2018 [facility] Weight 99.091 03/27/2018 [facility] Encounters Location Location Encounter Encounter Reason Attending ADM DC Status Source Details Type Number For Provider Date Date Visit [facility]patient [id number] Non 03/27 04/02 [facility] Dereje Physician /2017 [facility] Procedures Procedure Code Date Perfomer Comments Source 03/29/2018 [facility] Biopsy, bone, 03/29/2018 [facility] trocar, [facility] needle; deep (eg, vertebral body, femur)
[2018-06-02 18:25] LABS: Urine Blood NEGATIVE (NEG); Urine Glucose NEGATIVE (NEG); Urine Protein NEGATIVE (NEG); Urine Specific Gravity 1.005 (1.005-1.030)
[2018-06-02 18:48] LABS: Protime INR 0.97
[2018-06-02 18:58] LABS: Absolute Lymphocytes (CBC) 62.9 K/uL (0.7-4.9); Absolute Monocytes 0.3 K/uL (0.1-1.3); Absolute Neutrophil 1.1 K/uL (1.8-8.0); Eosinophils % 0.2 % (0-4.4); Hematocrit 21.8 % (36.0-45.0); Lymphocytes % 97.8 % (15.3-44.8); MCH 32.2 pg (27.0-35.0); MCV 97.8 fL (80-100); MPV 10.3 fL (7.6-11.3); Monocytes % 0.4 % (3.3-12.3); RBC Red Blood Cell Count 2.23 M/uL (3.86-4.86)
[2018-06-02 19:00] LABS: ALT/SGPT 21 U/L (12-78); AST/SGOT 15 U/L (15-37); Albumin 3.3 g/dL (3.4-5.0); Alkaline Phosphatase 66 U/L (45-117); Amylase Level 19 U/L (25-115); BUN Blood Urea Nitrogen 9 mg/dL (7-18); Bicarbonate 26 mmol/L (21-32); Bilirubin Direct 0.1 mg/dL (0-0.2); Bilirubin Total 0.4 mg/dL (0.2-1.0); Glucose Level 105 mg/dL (74-106); Lipase 98 U/L (73-393); Potassium 3.8 mmol/L (3.5-5.1); Protein, Total 6.6 g/dL (6.4-8.2); Sodium Level 141 mmol/L (136-145)
[2018-06-02 19:26] LABS: Urine Bacteria <20 /HPF (<20); Urine Culture Reflex Order NOT NEEDED; Urine RBC <5 /HPF (NONE SEEN)
[2018-06-02 19:57] LABS: Blood Morphology Comment NOT SEEN (NOT SEEN); Platelet Estimate DECR; Smudge Cells PRESENT
[2018-06-02] MEDS ORDERED: PANTOPRAZOLE 40 MG INJ ONE (21:18)
--- NOTE | 2018-06-02 21:18 | EDPHYS ---
Physician Documentation [facility] Name: Lisy Betts Age: 68 yrs Sex: Female : 1950 Arrival Date: 06/02/2018 Time: 17:13 Bed 5 Private MD: ED Physician Aleksey Christine HPI: 06/02 18:00 This 68 yrs old Female presents to ER via Ambulatory with complaints of cp Dizziness. 18:00 The patient presents with feeling faint, lightheadedness. cp 18:00 Onset: The symptoms/episode began/occurred today. cp 18:00 Associated signs and symptoms: Pertinent positives: near-syncope, Pertinent negatives: cp abdominal pain, blurred vision, chest pain, diaphoresis, focal weakness, headache, palpitations, shortness of breath, syncope, vomiting. 18:00 Patient's baseline: Neuro: alert and fully oriented, Motor: no deficits, Ambulation: cp walks without assistance, Speech: normal. Historical: - Allergies: 17:20 ceftriaxone; sv 17:20 PENICILLINS; sv 17:20 Prednisone; sv - PMHx: 17:20 CLL; Pulmonary Embolism; UTI; sv - PSHx: 17:20 Hysterectomy; sv - Immunization history:: Adult Immunizations up to date. - Social history:: Smoking status: Patient/guardian denies using tobacco. - Ebola Screening: : No symptoms or risks identified at this time. ROS: 18:05 Constitutional: Negative for body aches, chills, fever, poor PO intake. cp 18:05 Eyes: Negative for injury, pain, redness, and discharge. cp 18:05 ENT: Negative for drainage from ear(s), ear pain, sore throat, difficulty swallowing, difficulty handling secretions. 18:05 Cardiovascular: Negative for chest pain, edema, palpitations. 18:05 Respiratory: Negative for cough, shortness of breath, wheezing. 18:05 Abdomen/GI: Negative for abdominal pain, nausea, vomiting, and diarrhea. 18:05 Skin: Negative for cellulitis, rash. 18:05 Neuro: Positive for dizziness, headache, Negative for altered mental status, loss of consciousness, syncope, near syncope, weakness. 18:05 All other systems are negative. Exam: 18:12 Constitutional: The patient appears in no acute distress, alert, awake, cp non-diaphoretic, non-toxic, well developed, well nourished. 18:12 Head/Face: Normocephalic, atraumatic. Eyes: Pupils equal round and reactive to light, cp extra-ocular motions intact. Lids and lashes normal. Conjunctiva and sclera are non-icteric and not injected. Cornea within normal limits. Periorbital areas with no swelling, redness, or edema. ENT: Nares patent. No nasal discharge, no septal abnormalities noted. Tympanic membranes are normal and external auditory canals are clear. Oropharynx with no redness, swelling, or masses, exudates, or evidence of obstruction, uvula midline. Mucous membranes moist. 18:12 Neck: External neck: is normal, ROM/movement: is normal, is supple, without pain, no range of motions limitations, no nuchal rigidity. 18:12 Chest/axilla: Inspection: normal, Palpation: is normal, no crepitus, no tenderness. 18:12 Cardiovascular: Rate: normal, Rhythm: regular, Pulses: Pulses are 2+ in right radial artery and left radial artery. Edema: is not appreciated, JVD: is not appreciated. 18:12 Respiratory: the patient does not display signs of respiratory distress, Respirations: normal, no use of accessory muscles, no retractions, no splinting, no tachypnea, labored breathing, is not present, Breath sounds: are clear throughout, no decreased breath sounds, no stridor, no wheezing. 18:12 Abdomen/GI: Inspection: abdomen appears normal, Bowel sounds: active, all quadrants, Palpation: abdomen is soft and non-tender, in all quadrants, rebound tenderness, is not appreciated, involuntary guarding, is not appreciated. 18:12 Back: pain, is absent, ROM is normal. 18:12 Skin: cellulitis, is not appreciated, no rash present. 18:12 Neuro: Orientation: to person, place \T\ time. Mentation: lucid, able to follow commands, Cerebellar function: is grossly normal, Motor: moves all fours, strength is normal, Sensation: no obvious gross deficits. 19:22 ECG was reviewed by the Attending Physician. cp 20:45 : Rectal exam: Rectal tone: normal, Stool: brown, Guaiac testing: results were cp positive for occult blood. Vital Signs: 17:20 BP 157 / 67; Pulse 68; Resp 18; Temp 97.8; Pulse Ox 98% ; Weight 93.89 kg; Height 5 ft. sv 3 in. (160.02 cm); Pain 0/10; 18:00 BP 131 / 81; Pulse 60; Resp 15; Pulse Ox 95% on R/A; dm5 19:20 BP 121 / 100; Pulse 59; Resp 18; Pulse Ox 98% ; ao 19:30 BP 139 / 76; Pulse 59; Resp 16; Pulse Ox 95% on R/A; Pain 0/10; ao 21:34 BP 148 / 66 Supine; Pulse 64; Resp 16; Pulse Ox 98% on R/A; cc1 21:34 BP 150 / 78 Sitting; Pulse 72; Resp 16; Pulse Ox 97% on R/A; cc1 21:34 BP 158 / 65; Pulse 76; Resp 18; Pulse Ox 97% on R/A; cc1 17:20 Body Mass Index 36.67 (93.89 kg, 160.02 cm) sv MDM: 17:45 Patient medically screened. cp 19:00 Differential diagnosis: cardiac arrhythmia, CVA, generalized weakness, GI bleed, cp hypovolemia, idiopathic dizziness, vertigo. 21:15 Data reviewed: vital signs, nurses notes, lab test result(s), EKG. cp 21:15 Counseling: I had a detailed discussion with the patient and/or guardian regarding: the cp historical points, exam findings, and any diagnostic results supporting the discharge/admit diagnosis, lab results, the need for further work-up and treatment in the hospital. Physician consultation: Anson Li MD was contacted at 21:15, regarding admission, to the telemetry unit. patient's condition. 06/02 17:52 Order name: Amylase, Serum; Complete Time: 19:26 cp 06/02 17:52 Order name: Basic Metabolic Panel; Complete Time: 19:26 cp 06/02 17:52 Order name: CBC with Diff; Complete Time: 20:03 cp 06/02 19:27 Interpretation: Normal except: RBC 2.23; HGB 7.2; HCT 21.8; PLT 26; RDW 18.6; JACQUIE% 1.6; cp LYM% 97.8; MN% 0.4; NEUT A 1.1; LYMA 62.9. 06/02 17:52 Order name: Creatinine for Radiology; Complete Time: 19:26 cp 06/02 17:52 Order name: Hepatic Function; Complete Time: 19:26 cp 06/02 17:52 Order name: Lipase; Complete Time: 19:26 cp 06/02 17:52 Order name: Urine Microscopic Only; Complete Time: 20:03 cp 06/02 17:52 Order name: PT-INR; Complete Time: 19:26 cp 06/02 17:52 Order name: Ptt, Activated; Complete Time: 19:26 cp 06/02 18:20 Order name: Urine Dipstick--Ancillary (enter results) eb 06/02 18:21 Order name: Urine Dipstick-Ancillary; Complete Time: 19:26 EDMS 06/02 19:57 Order name: Manual Differential; Complete Time: 20:03 EDMS 06/02 21:18 Order name: Type And Screen cp 06/02 21:19 Order name: Type and Screen EDNC 06/02 17:52 Order name: Orthostatics; Complete Time: 21:34 cp 06/02 17:52 Order name: IV Saline Lock; Complete Time: 18:34 cp 06/02 17:52 Order name: Labs collected and sent; Complete Time: 18:33 cp 06/02 17:52 Order name: Urine Dipstick-Ancillary (obtain specimen); Complete Time: 18:33 cp 06/02 17:52 Order name: EKG; Complete Time: 17:53 cp 06/02 17:52 Order name: EKG - Nurse/Tech; Complete Time: 19:24 cp EC:22 Rate is 54 beats/min. Rhythm is regular. ID interval is normal. QRS interval is normal. cp QT interval is normal. No ST changes noted. Interpreted by me. Reviewed by me. Administered Medications: 22:30 Drug: ProTONIX 40 mg Route: IVP; Site: left antecubital; ao 23:33 Follow up: Response: No adverse reaction ak1 Disposition: 06/02/18 21:18 Hospitalization ordered by Anson Li for Observation. Preliminary diagnosis are Anemia in chronic diseases classified elsewhere, Gastrointestinal hemorrhage, unspecified. - Bed requested for Telemetry/MedSurg (observation). - Status is Observation. ak1 - Condition is Stable. - Problem is an ongoing problem. - Symptoms are unchanged. UTI on Admission? No Addendum: 06/04/2018 11:18 Co-signature as Attending Physician, Aleksey Christine MD I agree with the assessment and w a plan of care. Signatures: Dispatcher [employer] EDJesica Gross RN RN kl Verde, Stephanie, RN RN sv Nieto, Roman, MD MD rn Krenek, Amber, RN RN ak1 Javed Benedict PA PA cp Fernando Whaley RN Aleksey Santana MD MD wa Corrections: (The following items were deleted from the chart) 06/02 19: 19: Normal except: RBC 2.23; HGB 7.2; HCT 21.8; PLT 26; RDW 18.6; JACQUIE% 1.6; LYM% cp 97.8; MN% 0.4. cp :: Normal except: RBC 2.23; HGB 7.2; HCT 21.8; PLT 26; RDW 18.6; JACQUIE% 1.6; LYM% cp 97.8; MN% 0.4; NEUT A 1.1. cp 22:38 21:18 Hospitalization Ordered by Anson Li MD for Observation. Preliminary kl diagnosis is Anemia in chronic diseases classified elsewhere; Gastrointestinal hemorrhage, unspecified. Bed requested for Telemetry/MedSurg (observation). Status is Observation. Condition is Stable. Problem is an ongoing problem. Symptoms are unchanged. UTI on Admission? No. cp 23:50 22:38 06/02/2018 21:18 Hospitalization Ordered by Anson Li MD for Observation. ak1 Preliminary diagnosis is Anemia in chronic diseases classified elsewhere; Gastrointestinal hemorrhage, unspecified. Bed requested for Telemetry/MedSurg (observation). Status is Observation. Condition is Stable. Problem is an ongoing problem. Symptoms are unchanged. UTI on Admission? No. kl
--- NOTE | 2018-06-02 21:18 | ER ---
Nurse's Notes [facility] Name: Lisy Betts Age: 68 yrs Sex: Female : 1950 Arrival Date: 06/02/2018 Time: 17:13 Bed 5 Private MD: Diagnosis: Anemia in chronic diseases classified elsewhere;Gastrointestinal hemorrhage, unspecified Presentation: 06/02 17:18 Presenting complaint: Patient states: lightheadedness, "feels like a little earthquake sv in my head." that started today. c/o heart palpitations today. Transition of care: patient was not received from another setting of care. Onset of symptoms was June 02, 2018. Care prior to arrival: None. 17:18 Method Of Arrival: Ambulatory sv 17:18 Acuity: ARNOLD 3 sv 23:31 Risk Assessment: Do you want to hurt yourself or someone else? Patient reports no ak1 desire to harm self or others. Initial Sepsis Screen: Does the patient meet any 2 criteria? No. Patient's initial sepsis screen is negative. Does the patient have a suspected source of infection? No. Patient's initial sepsis screen is negative. Triage Assessment: 23:31 General: Appears in no apparent distress. uncomfortable, Behavior is calm, cooperative. ak1 Pain: Denies pain. EENT: No signs and/or symptoms were reported regarding the EENT system. Neuro: Level of Consciousness is awake, alert, obeys commands, Oriented to person, place, time, situation, Assistant Hvac Mechanic are equal bilaterally pt c/o dizziness. Cardiovascular: No deficits noted. Respiratory: Reports shortness of breath. GI: No signs and/or symptoms were reported involving the gastrointestinal system. : No signs and/or symptoms were reported regarding the genitourinary system. Derm: No signs and/or symptoms reported regarding the dermatologic system. Musculoskeletal: No signs and/or symptoms reported regarding the musculoskeletal system. Historical: - Allergies: 17:20 ceftriaxone; sv 17:20 PENICILLINS; sv 17:20 Prednisone; sv - PMHx: 17:20 CLL; Pulmonary Embolism; UTI; sv - PSHx: 17:20 Hysterectomy; sv - Immunization history:: Adult Immunizations up to date. - Social history:: Smoking status: Patient/guardian denies using tobacco. - Ebola Screening: : No symptoms or risks identified at this time. Screenin:00 Abuse screen: Denies threats or abuse. Denies injuries from another. Nutritional dm5 screening: No deficits noted. Tuberculosis screening: No symptoms or risk factors identified. Fall Risk No fall in past 12 months (0 pts). No secondary diagnosis (0 pts). IV access (20 points). Ambulatory Aid- None/Bed Rest/Nurse Assist (0 pts). Gait- Weak (10 pts.). Mental Status- Oriented to own ability (0 pts). Total Rodríguez Fall Scale indicates Low Risk Score (25-44 pts). Fall prevention measures have been instituted. Side Rails Up X 2 Placed close to Nursing Station. Assessment: 18:00 General: Appears in no apparent distress. Behavior is calm, cooperative. Pain: Denies dm5 pain. Neuro: Level of Consciousness is awake, alert, obeys commands, Oriented to person, place, time, situation, Reports dizziness. Cardiovascular: Reports None. Respiratory: Airway is patent Respiratory effort is even, unlabored, relaxed. Derm: Skin is pink, warm \\T\\ dry. 19:20 General: Appears in no apparent distress. comfortable, Behavior is calm, cooperative, ao appropriate for age. Pain: Denies pain. Neuro: Level of Consciousness is awake, alert, obeys commands, Oriented to person, place, time, situation, Appropriate for age Weakness. Cardiovascular: Reports None Capillary refill < 3 seconds. Respiratory: Airway is patent Respiratory effort is even, unlabored, relaxed. GI: Abdomen is non-distended. : No signs and/or symptoms were reported regarding the genitourinary system. EENT: No signs and/or symptoms were reported regarding the EENT system. Derm: Skin is pink, warm \\T\\ dry. Skin temperature is warm. Musculoskeletal: Circulation, motion, and sensation intact. Range of motion: intact in all extremities. 20:35 Reassessment: Patient appears in no apparent distress at this time. Patient and/or ao family updated on plan of care and expected duration. Pain level reassessed. Patient is alert, oriented x 3, equal unlabored respirations, skin warm/dry/pink. Vital Signs: 17:20 BP 157 / 67; Pulse 68; Resp 18; Temp 97.8; Pulse Ox 98% ; Weight 93.89 kg; Height 5 ft. sv 3 in. (160.02 cm); Pain 0/10; 18:00 BP 131 / 81; Pulse 60; Resp 15; Pulse Ox 95% on R/A; dm5 19:20 BP 121 / 100; Pulse 59; Resp 18; Pulse Ox 98% ; ao 19:30 BP 139 / 76; Pulse 59; Resp 16; Pulse Ox 95% on R/A; Pain 0/10; ao 21:34 BP 148 / 66 Supine; Pulse 64; Resp 16; Pulse Ox 98% on R/A; cc1 21:34 BP 150 / 78 Sitting; Pulse 72; Resp 16; Pulse Ox 97% on R/A; cc1 21:34 BP 158 / 65; Pulse 76; Resp 18; Pulse Ox 97% on R/A; cc1 17:20 Body Mass Index 36.67 (93.89 kg, 160.02 cm) sv ED Course: 17:13 Patient arrived in ED. as 17:20 Triage completed. sv 17:22 Leticia Olivera, RN is Primary Nurse. ph 17:22 Arm band placed on left wrist. sv 17:45 Javed Benedict PA is PHCP. cp 17:45 Aleksey Christine MD is Attending Physician. cp 18:00 Patient has correct armband on for positive identification. Placed in gown. Call light dm5 in reach. Side rails up X2. bus monitor on. Pulse ox on. NIBP on. 18:23 Initial lab(s) drawn, by me, sent to lab. Inserted saline lock: 20 gauge in right dm5 antecubital area, using aseptic technique. Blood collected. 18:33 Urine Dipstick--Ancillary (enter results) Sent. dm5 19:00 Notified Nurse Practitioner and/or Physician Supervisor Brine of a critical lab result(s), wbc fc 64.4, hgb 7.2, plt 26. 21:17 Anson Li MD is Hospitalizing Provider. cp 23:32 No provider procedures requiring assistance completed. Patient admitted, IV remains in ak1 place. 23:49 Consent for blood and/or blood product transfusion explained by staff, explained by ak1 physician, signed by patient. Administered Medications: 22:30 Drug: ProTONIX 40 mg Route: IVP; Site: left antecubital; ao 23:33 Follow up: Response: No adverse reaction [facility] Outcome: 21:18 Decision to Hospitalize by Provider. cp 23:30 Admitted to Med/surg accompanied by gisele, via stretcher, room 231, with chart, Report ak1 called to Wendy 23:30 Condition: stable 23:30 Instructed on the need for admit. 23:50 Patient left the ED. ak1 Signatures: Diana Nuñez RN RN dm5 Santa Ugarte RN Ami Darden RN RN fc Martinez, Amelia as Cahoon, Charlie cc1 Julieta Oliva RN RN ak1 Leticia Olivera RN RN ph Javed Benedict, RAS PA Fernando Brooke RN RN ao Corrections: (The following items were deleted from the chart) 17:22 17:18 Presenting complaint: Patient states: lightheadedness, "feels like a little sv earthquake in my head." that started today. sv
[2018-06-02] MEDS ORDERED: SODIUM CHLORIDE 0.9% 10ML INJ IV PRN (22:06)
--- NOTE | 2018-06-02 22:47 | P.HP ---
Certification for Inpatient Patient admitted to: Observation With expected LOS: <2 Midnights Practitioner: I am a practitioner with admitting privileges, knowledge of patient current condition, hospital course, and medical plan of care. Services: Services provided to patient in accordance with Admission requirements found in Title 42 Section 412.3 of the Code of Federal Regulations Patient History Date of Service: 06/02/18 Reason for admission: Anemia, GIB History of Present Illness: Ms Betts is a 68-year-old woman with history of CLL who recently started chemotherapy treatment, PE, who came to ER complaining of dizziness and lightheadedness. She has had these symptoms before in context of anemia, but in this opportunity started a couple of days ago. She also noticed blood in her stools and when she wipes. She denied any abdominal pain, nausea or vomiting. Lab work in ER remarkable for WBC 64.4 K, hemoglobin 7.2 (previous result of hemoglobin 1 week ago was 8.0), platelets 26. Vital signs are stable. Allergies ceftriaxone [From Rocephin] Allergy (Verified 03/26/18 03:04) Hives Penicillins Allergy (Verified 03/26/18 03:04) Hives prednisone Adverse Reaction (Verified 03/26/18 03:04) Shortness of breath Home medications list reviewed: Yes Home Medications: NK [No Home Meds] 03/26/18 - Past Medical/Surgical History Diabetic: No -: Chronic Lymphocytic Leukemia -: 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 -: PE -: cyst removed from left breast -: left ankle surgery -: Hysterectomy 2018 -: Abdominal hernia repair with mesh placement - Family History Mother -: Heart disease, Other (see notes) Notes: ALZ, [place] Father -: Cancer Notes: Pancreatic CA - Social History Smoking Status: Never smoker Alcohol use: No CD- Drugs: No Caffeine use: Yes Place of Residence: Home Review of Systems 10-point ROS is otherwise unremarkable Physical Examination - Physical Exam General: Alert, In no apparent distress HEENT: Atraumatic, PERRLA, Mucous membr. moist/pink, EOMI, Sclerae nonicteric Neck: Supple, 2+ carotid pulse no bruit, No LAD, Without JVD or thyroid abnormality Respiratory: Clear to auscultation bilaterally, Normal air movement Cardiovascular: Regular rate/rhythm, Normal S1 S2 Gastrointestinal: Normal bowel sounds, No tenderness Musculoskeletal: No tenderness Integumentary: No rashes Neurological: Normal speech, Normal strength at 5/5 x4 extr, Normal tone, Normal affect Lymphatics: No axilla or inguinal lymphadenopathy - Studies Laboratory Data (last 24 hrs) 06/02/18 18:23: PT 11.5, INR 0.97, APTT 20.3 L 06/02/18 18:23: Creatinine 0.70 06/02/18 18:23: WBC 64.4 H* D, Hgb 7.2 L*, Hct 21.8 L, Plt Count 26 L* 06/02/18 18:23: Sodium 141, Potassium 3.8, BUN 9, Creatinine 0.60, Glucose 105, Total Bilirubin 0.4, AST 15, ALT 21, Alkaline Phosphatase 66, Amylase 19 L, Lipase 98 Assessment and Plan - Problems (Diagnosis) (1) Thrombocytopenia Current Visit: Yes Status: Acute (2) Anemia Onset Date: 03/22/18 Current Visit: No Status: Acute Qualifiers: Anemia type: bone marrow failure Bone marrow failure anemia type: other bone marrow failure Qualified Code(s): D61.89 - Other specified aplastic anemias and other bone marrow failure syndromes (3) CLL (chronic lymphocytic leukemia) Onset Date: 01/23/18 Current Visit: No Status: Chronic - Plan The patient will be admitted to the hospital due to symptomatic anemia. 1 unit of PRBC transition has been ordered in the ER. She has been complaining of bloody stools, guaiac test was positive in the ER. Would monitor H&H, consult type disk quality control supervisor. - Advance Directives Does patient have a Living Will: No Does patient have a Durable POA for Healthcare: No - Code Status/Comfort Care Code Status Assessed: Yes Code Status: Full Code
[2018-06-03] MEDS ORDERED: NA CHLORIDE 0.9% 1,000 ML IV SCH (00:11)
[2018-06-03] MEDS ORDERED: ONDANSETRON 4 MG/2 ML VIAL IV PRN (00:11)
[2018-06-03 00:13] VITALS: BMI 36.8
[2018-06-03] MEDS ORDERED: NA CHLORIDE 0.9% 250 ML ONE ×3 (00:50→15:35)
[2018-06-03] MEDS ORDERED: DIPHENHYDRAMINE 50 MG/ML VIAL IV ONE (01:19)
[2018-06-03 07:38] LABS: Hematocrit 22.8 % (36.0-45.0)
[2018-06-03 07:42] LABS: BUN Blood Urea Nitrogen 8 mg/dL (7-18); Bicarbonate 26 mmol/L (21-32); Glucose Level 94 mg/dL (74-106); Potassium 4.1 mmol/L (3.5-5.1); Sodium Level 147 mmol/L (136-145)
[2018-06-03 08:06] LABS: Absolute Monocytes 0.2 K/uL (0.1-1.3); Absolute Neutrophil 0.9 K/uL (1.8-8.0); Basophils % 0.2 % (0-1.3); Eosinophils % 0.5 % (0-4.4); Hematocrit 22.9 % (36.0-45.0); Lymphocytes % 96.9 % (15.3-44.8); MCH 31.2 pg (27.0-35.0); MCV 95.4 fL (80-100); MPV 9.4 fL (7.6-11.3); Monocytes % 0.4 % (3.3-12.3)
--- NOTE | 2018-06-03 08:27 | P.PN ---
Subjective Date of Service: 06/03/18 Primary Care Provider: Dr. Renteria; Oncology-Dr. Snider/Dr. Bustillo; GI-Dr. Toledo Chief Complaint: Anemia, GIB Subjective: Other (Patient doing better this morning. No significant rectal bleeding noted. No abdominal pain noted.) Physical Examination - Vital Signs Temperature: 97.8 F Blood Pressure: 101/55 Pulse: 57 Respirations: 18 Pulse Ox (%): 95 - Physical Exam General: Alert, In no apparent distress, Oriented x3, Cooperative HEENT: Atraumatic Neck: Supple Respiratory: Clear to auscultation bilaterally, Normal air movement Cardiovascular: Normal pulses, Regular rate/rhythm Gastrointestinal: Normal bowel sounds, Soft and benign, Non-distended, No tenderness, No masses, No rebound, No guarding Musculoskeletal: No erythema, No tenderness, No warmth Integumentary: No tenderness/swelling, No erythema, No warmth, No cyanosis Neurological: Normal speech, Normal strength at 5/5 x4 extr, Normal tone, Normal affect - Studies Laboratory Data (last 24 hrs) 06/02/18 18:23: PT 11.5, INR 0.97, APTT 20.3 L 06/02/18 18:23: Creatinine 0.70 06/02/18 18:23: WBC 64.4 H* D, Hgb 7.2 L*, Hct 21.8 L, Plt Count 26 L* 06/02/18 18:23: Sodium 141, Potassium 3.8, BUN 9, Creatinine 0.60, Glucose 105, Total Bilirubin 0.4, AST 15, ALT 21, Alkaline Phosphatase 66, Amylase 19 L, Lipase 98 Medications List Reviewed: Yes Assessment & Plan - Problems (Diagnosis) (1) Diarrhea Current Visit: Yes Status: Acute Plan: Patient reported some diarrhea early this week when she started her new chemotherapy medication for CLL. This has since been stopped. This may have aggravated her colon and caused minimal rectal bleeding. No significant bleeding noted at this time. Patient has been given 1 unit of blood. Patient appears to be a have her baseline level. She is had a colonoscopy in the past. She is seen by GI locally. Will monitor for diarrhea. Will check C diff culture and stool culture. Will recheck CBC again later today. Will consider possible discharge after discussing case in detail with GI and oncology. She reports that she has an appointment to see GI tomorrow. Qualifiers: Diarrhea type: unspecified type Qualified Code(s): R19.7 - Diarrhea, unspecified (2) Thrombocytopenia Current Visit: Yes Status: Acute Plan: Patient with history of CLL. After transfusion platelet count came down slightly to 17. Will discuss with Oncology. Will recheck CBC later. Patient may require blood transfusion if more rectal bleeding is noted or platelet count is lower. Platelet count in the past has averaged around 30 and above. (3) Anemia Onset Date: 03/22/18 Current Visit: No Status: Acute Plan: Patient with history of CLL. Patient recently started a new chemotherapy agent last week. This was discontinued due to side affects including nausea, diarrhea. Patient given 1 unit of blood last night for hemoglobin of 7.2. Now 7.8. Will recheck CBC. Will discuss case in detail with her oncology. Qualifiers: Anemia type: bone marrow failure Bone marrow failure anemia type: other bone marrow failure Qualified Code(s): D61.89 - Other specified aplastic anemias and other bone marrow failure syndromes (4) CLL (chronic lymphocytic leukemia) Onset Date: 01/23/18 Current Visit: No Status: Chronic Plan: Patient with CLL. She is seen locally and up in [place]. Patient recently started a new chemotherapy agent last week but this was discontinued due to side effect. Will discuss with Oncology. (5) Rectal bleeding Current Visit: Yes Status: Acute Plan: Patient reported rectal bleeding after taking chemotherapy medication last week. This has been stopped. She reports no rectal bleeding at this time. Will advance diet. Will discuss in detail with GI and oncology. She is to see GI tomorrow. Patient has had colonoscopy in the past. Will recheck CBC later. Discharge Plan: Home Plan to discharge in: 24 Hours Time Spent Managing Pts Care (In Minutes): 55
[2018-06-03] MEDS: PANTOPRAZOLE 40 MG INJ IVP SCH ×2 (11:02→20:46)
[2018-06-03] MEDS ORDERED: FUROSEMIDE 20 MG/ 2ML VIAL IV ONE (12:00)
[2018-06-03] MEDS ORDERED: DIPHENHYDRAMINE 50 MG/ML VIAL IV PRN (14:44)
--- NOTE | 2018-06-03 15:42 | RAD REPORT ---
EXAM DESCRIPTION: RAD - Abdomen 1 View (KUB) - 06/03/2018 3:11 pm CLINICAL HISTORY: rectal bleeding, diarrhea Pain COMPARISON: Abdomen Pelvis W Contrast dated 01/22/2018; Abdomen Pelvis W Contrast dated 03/16/2017 FINDINGS: The bowel gas pattern is non-obstructive. No evidence of free air or pneumatosis. No suspi cious calcifications. No significant bony findings. IMPRESSION: Negative examination.
--- NOTE | 2018-06-03 16:16 | EKG ---
Test Date: 2018-06-02 Test Time: 19:16:19 Fish Egg Packer: MYRA MEASUREMENT RESULTS: Intervals: Rate: 54 [place]: 162 QRSD: 84 QT: 440 QTc: 417 [place]: P: -7 [place]: 162 QRS: 3 T: 23 INTERPRETIVE STATEMENTS: Sinus bradycardia Inferior infarct, age undetermined Abnormal ECG Compared to ECG 05/28/2018 21:33:16 Sinus rhythm no longer present Electronically Signed On 06-03-18 16:16:12 CDT by Stevan Olivia
[2018-06-03 20:16] LABS: Absolute Lymphocytes (CBC) 52.3 K/uL (0.7-4.9); Absolute Monocytes 0.4 K/uL (0.1-1.3); Basophils % 0.1 % (0-1.3); Eosinophils % 0.4 % (0-4.4); Hematocrit 27.3 % (36.0-45.0); Lymphocytes % 96.9 % (15.3-44.8); MCH 31.1 pg (27.0-35.0); MCV 93.4 fL (80-100); MPV 9.5 fL (7.6-11.3); Monocytes % 0.8 % (3.3-12.3); RBC Red Blood Cell Count 2.92 M/uL (3.86-4.86)
[2018-06-04 07:09] LABS: Magnesium 2.3 mg/dL (1.8-2.4); Potassium 3.4 mmol/L (3.5-5.1)
[2018-06-04 07:22] LABS: Absolute Lymphocytes (CBC) 44.9 K/uL (0.7-4.9); Absolute Monocytes 0.3 K/uL (0.1-1.3); Absolute Neutrophil 0.9 K/uL (1.8-8.0); Basophils % 0.1 % (0-1.3); Eosinophils % 0.4 % (0-4.4); Hematocrit 27.9 % (36.0-45.0); Lymphocytes % 96.9 % (15.3-44.8); MCH 31.7 pg (27.0-35.0); MPV 10.3 fL (7.6-11.3); Monocytes % 0.7 % (3.3-12.3); RBC Red Blood Cell Count 3.03 M/uL (3.86-4.86)
[2018-06-04] MEDS ORDERED: POTASSIUM 25 MEQ EFFERV TAB PO ONE (09:00)
[2018-06-04] MEDS: PANTOPRAZOLE 40 MG INJ IVP SCH (09:47)
[2018-06-04 10:01] LABS: Anisocytosis 2+; Blood Morphology Comment NOTED (NOT SEEN); Platelet Estimate DECR
[2018-06-04 11:05] VITALS: O2SAT 98
[2018-06-04 13:18] VITALS: BP 128/89; TEMP 97.8
--- NOTE | 2018-06-04 15:55 | P.DS ---
Admission Date: 06/02/18 Discharge Date: 06/04/18 Primary Care Provider: Dr. Renteria; Oncology-Dr. Snider/Dr. Bustillo; GI-Dr. Toledo Disposition: ROUTINE DISCHARGE Discharge Condition: GOOD Reason for Admission: Anemia, GIB - Problems (1) Diarrhea Onset Date: 06/04/18 Current Visit: Yes Status: Acute Qualifiers: Diarrhea type: unspecified type Qualified Code(s): R19.7 - Diarrhea, unspecified (2) Thrombocytopenia Onset Date: 06/04/18 Current Visit: Yes Status: Acute (3) Anemia Onset Date: 03/22/18 Current Visit: No Status: Acute Qualifiers: Anemia type: bone marrow failure Bone marrow failure anemia type: other bone marrow failure Qualified Code(s): D61.89 - Other specified aplastic anemias and other bone marrow failure syndromes (4) CLL (chronic lymphocytic leukemia) Onset Date: 01/23/18 Current Visit: No Status: Chronic (5) Rectal bleeding Onset Date: 06/04/18 Current Visit: Yes Status: Acute (6) GERD (gastroesophageal reflux disease) Current Visit: Yes Status: Suspected Qualifiers: Esophagitis presence: esophagitis presence not specified Qualified Code(s) : K21.9 - Gastro-esophageal reflux disease without esophagitis Brief History of Present Illness: 68-year-old female presented emergency room with nausea, lightheadedness and rectal bleeding. Patient has a history of CLL and recently started a new medication for this. Patient was admitted for further evaluation. Hospital Course: Patient presented with nausea, dizziness and rectal bleeding likely secondary to chemotherapy medication. Patient has CLL and recently started medication new medication last week. This medication was discontinued prior to admission. This was recommended by her manager meeting with seen the patient. Patient was to have seen GI early this week to address rectal bleeding which is a side effect of the medication. The patient was admitted for further evaluation. During the course of her stay patient was anemic and required blood transfusion and platelet transfusion. Case discussed in detail with hematology/oncology. Hemoglobin and platelet count currently stable at this time. Hemoglobin 9.6 with a platelet count of 53. Recommendations for the patient follow up with oncology/hematology this week to follow up this hospitalization. Recommendation to recheck lab-CBC to further address. Recommendation to discontinue chemotherapy medication and discuss further with Oncology to determine best plan of care. Patient likely has GERD. Patient will be started on Protonix 40 mg 1 pill twice daily. Patient may be benefit with GI evaluation including EGD and colonoscopy. Patient already has appointment to see GI here soon. C diff culture negative for colitis. Rectal bleeding no longer present at discharge. Vital Signs/Physical Exam: Temp Pulse Resp BP Pulse Ox 97.8 F 77 18 128/89 99 06/04/18 12:00 06/04/18 12:00 06/04/18 12:00 06/04/18 12:00 06/04/18 12:00 General: Alert, In no apparent distress, Oriented x3, Cooperative HEENT: Atraumatic Neck: Supple Respiratory: Clear to auscultation bilaterally, Normal air movement Cardiovascular: Normal pulses, Regular rate/rhythm Gastrointestinal: Normal bowel sounds, Soft and benign, Non-distended, No tenderness, No masses, No rebound, No guarding Musculoskeletal: No erythema, No tenderness, No warmth Integumentary: No tenderness/swelling, No erythema, No warmth, No cyanosis Neurological: Normal speech, Normal strength at 5/5 x4 extr, Normal tone, Normal affect Laboratory Data at Discharge: WBC 46.3 K/uL (4.3-10.9) H* D 06/04/18 05:23 Hgb 9.6 g/dL (12.0-15.0) L 06/04/18 05:23 Hct 27.9 % (36.0-45.0) L 06/04/18 05:23 Plt Count 53 K/uL (152-406) L 06/04/18 05:23 PT 11.5 SECONDS (9.5-12.5) 06/02/18 18:23 INR 0.97 06/02/18 18:23 APTT 20.3 SECONDS (24.3-36.9) L 06/02/18 18:23 Sodium 142 mmol/L (136-145) 06/04/18 05:23 Potassium 3.4 mmol/L (3.5-5.1) L 06/04/18 05:23 BUN 10 mg/dL (7-18) 06/04/18 05:23 Creatinine 0.70 mg/dL (0.55-1.3) 06/04/18 05:23 Glucose 99 mg/dL (74-106) 06/04/18 05:23 Magnesium 2.3 mg/dL (1.8-2.4) 06/04/18 05:23 Total Bilirubin 0.4 mg/dL (0.2-1.0) 06/02/18 18:23 AST 15 U/L (15-37) 06/02/18 18:23 ALT 21 U/L (12-78) 06/02/18 18:23 Alkaline Phosphatase 66 U/L (45-117) 06/02/18 18:23 Amylase 19 U/L (25-115) L 06/02/18 18:23 Lipase 98 U/L (73-393) 06/02/18 18:23 Home Medications: Pantoprazole [Protonix Tab] 40 mg PO BID #60 tab 06/04/18 New Medications: Pantoprazole [Protonix Tab] 40 mg PO BID #60 tab Patient Discharge Instructions: 1. Patient will need to follow up her PCP in 1 week to follow up this hospitalization. 2. Patient presented with rectal bleeding likely secondary to chemotherapy medication. Patient has CLL and recently started medication new medication last week. This has been discontinued. Patient required blood transfusion along with platelet transfusion. Hemoglobin stable at this time. Hemoglobin 9.6 with a platelet count of 53. Case discussed in detail with oncology. Recommendations for the patient follow up with oncology/hematology this week to follow up this hospitalization. Recommendation to recheck lab-CBC to further address. Recommendation to discontinue chemotherapy medication and discuss further with Oncology to determine best plan of care. 3. Patient likely has GERD. Patient will be started on Protonix 40 mg 1 pill twice daily. Patient may be benefit with GI evaluation including EGD and colonoscopy. Patient already has appointment to see GI here soon. Diet: AHA Activity: Ad jamaal Time spent managing pt's care (in minutes): 55
== END 2018-06-04 16:05 | disposition home or self-care (01) ==
LOC: ER 17:11 → ERHOLD 21:18 → 2ND 23:38
PROVIDERS: ADMIT Internal Medicine; ATTEND Internal Medicine
PROC: 30233R1 Transfusion of Nonautologous Platelets into Peripheral Vein, Percutaneous Approach (ICD-10-PCS; principal; 2018-06-03)
PROC: 30233N1 Transfusion of Nonautologous Red Blood Cells into Peripheral Vein, Percutaneous Approach (ICD-10-PCS; 2018-06-03)
DX: K62.5 Hemorrhage of anus and rectum (principal); C91.10 Chronic lymphocytic leukemia of B-cell type not having achieved remission; D69.6 Thrombocytopenia, unspecified; D64.9 Anemia, unspecified; Z88.0 Allergy status to penicillin; R19.7 Diarrhea, unspecified
CPT/HCPCS: 36415 ×2; 36430; 74018; 80048 ×3; 80076; 82150; 83690; 83735; 85014; 85018; 85025 ×4; 85610; 85730; 86850; 86900; 86901; 87045; 87046; 87493; 93005; 96374; 97110; 97116 ×4; 97163; 99285; C9113 ×4; J1940; J7030; P9016 ×2; P9035; 81003; 81015

== ENCOUNTER 2018-06-07 19:49 | Emergency (ER) | payer SELFPAY ==
--- NOTE | 2018-06-07 20:26 | ER ---
Nurse's Notes [facility] Name: Lisy Betts Age: 68 yrs Sex: Female : 1950 Arrival Date: 06/07/2018 Time: 19:52 Bed Waiting Private MD: Diagnosis: Presentation: 06/07 20:04 Presenting complaint: Patient states: Weakness and dizziness since this evening. States aj1 that she has been anemia before and this is how she felt when she needed blood. Reports that she had 2 units of blood and platelets transfused this past Monday. Denies pain. Transition of care: patient was not received from another setting of care. Onset of symptoms was June 07, 2018. Risk Assessment: Do you want to hurt yourself or someone else? Patient reports no desire to harm self or others. Initial Sepsis Screen: Does the patient meet any 2 criteria? No. Patient's initial sepsis screen is negative. Does the patient have a suspected source of infection? No. Patient's initial sepsis screen is negative. Care prior to arrival: None. 20:04 Method Of Arrival: Ambulatory aj1 20:04 Acuity: ARNOLD 3 aj1 Triage Assessment: 20:07 General: Appears in no apparent distress. comfortable, Behavior is calm, cooperative, aj1 appropriate for age. Pain: Denies pain. Neuro: Level of Consciousness is awake, alert, obeys commands, Oriented to person, place, time, Appropriate for age Gait is steady, Speech is normal, Facial symmetry appears normal, Reports weakness. Cardiovascular: Patient's skin is warm and dry. Cardiovascular: Denies chest pain, palpitations. Respiratory: Airway is patent Respiratory effort is even, unlabored, Respiratory pattern is regular, symmetrical. Historical: - Allergies: 20:07 ceftriaxone; aj1 20:07 PENICILLINS; aj1 20:07 Prednisone; aj1 - Home Meds: 20:07 None [Active]; aj1 - PMHx: 20:07 CLL; Pulmonary Embolism; UTI; aj1 - PSHx: 20:07 Hysterectomy; aj1 - Immunization history:: Flu vaccine is not up to date. - Social history:: Smoking status: Patient/guardian denies using tobacco. - Ebola Screening: : Patient denies travel to an Ebola-affected area in the 21 days before illness onset. Assessment: 20:24 Reassessment: Patient approached registration staff, and told them they she does not ajJonah feel bad enough that she wants to wait to be seen. Patient was then seen walking out of the ER lobby by registration staff. Vital Signs: 20:07 BP 164 / 71; Pulse 65; Resp 18; Temp 97.8; Pulse Ox 98% on R/A; Weight 93.89 kg (R); aj1 Height 5 ft. 3 in. (160.02 cm) (R); Pain 0/10; 20:07 Body Mass Index 36.67 (93.89 kg, 160.02 cm) aj1 ED Course: 19:52 Patient arrived in ED. es 20:06 Triage completed. aj1 20:07 Arm band placed on Patient placed in waiting room, Patient notified of wait time. aj1 Administered Medications: No medications were administered Outcome: 20:24 Eloped from waiting room. aj1 20:25 Patient left the ED. aj1 Signatures: Jennifer Farfan, RN RN aj1 Ofe Jacobs
[2018-06-07 20:30] VITALS: BP 164/71; TEMP 97.8; O2SAT 98
== END 2018-06-07 20:25 | disposition left against medical advice (07) ==
LOC: ER 19:49
DX: Z53.21 Procedure and treatment not carried out due to patient leaving prior to being seen by health care provider (principal)
CPT/HCPCS: 99281

== ENCOUNTER 2018-06-26 16:56 | Observation (INO) | payer OTHER ==
[2018-06-26 17:51] LABS: Protime INR 1.02
[2018-06-26 18:07] LABS: ALT/SGPT 16 U/L (12-78); AST/SGOT 11 U/L (15-37); Albumin 3.2 g/dL (3.4-5.0); Alkaline Phosphatase 66 U/L (45-117); BUN Blood Urea Nitrogen 13 mg/dL (7-18); Bicarbonate 26 mmol/L (21-32); Bilirubin Direct < 0.1 mg/dL (0-0.2); Bilirubin Total 0.3 mg/dL (0.2-1.0); Glucose Level 100 mg/dL (74-106); Magnesium 2.1 mg/dL (1.8-2.4); NT PRO-BNP 231 pg/mL (<125); Protein, Total 6.6 g/dL (6.4-8.2); Sodium Level 142 mmol/L (136-145); Troponin (Emerg Dept Use Only) < 0.02 ng/mL (0.0-0.045)
[2018-06-26 18:27] LABS: Absolute Lymphocytes (CBC) 75.1 K/uL (0.7-4.9); Absolute Monocytes 0.8 K/uL (0.1-1.3); Absolute Neutrophil 23.5 K/uL (1.8-8.0); Hematocrit 22.3 % (36.0-45.0); Lymphocytes % 75.5 % (15.3-44.8); MCH 30.9 pg (27.0-35.0); MCV 96.9 fL (80-100); MPV 9.1 fL (7.6-11.3); Monocytes % 0.8 % (3.3-12.3)
[2018-06-26 18:51] LABS: Blood Morphology Comment NOTED (NOT SEEN); Hypochromasia 1+; Platelet Estimate DECR
--- NOTE | 2018-06-26 19:00 | RAD REPORT ---
EXAM DESCRIPTION: RAD - Chest Single View - 06/26/2018 6:00 pm CLINICAL HISTORY: Shortness of breath COMPARISON: May 28 TECHNIQUE: AP portable chest image was obtained . FINDINGS: Lungs are clear. Heart and vasculature are normal. No measurable pleural effusion and no p neumothorax. No gross bony abnormality seen. No acute aortic findings suspected. IMPRESSION: No acute cardiopulmonary process. No significant change from comparison.
--- NOTE | 2018-06-26 19:57 | EDPHYS ---
Physician Documentation [facility] Name: Lisy Betts Age: 68 yrs Sex: Female : 1950 Arrival Date: 06/26/2018 Time: 16:59 Bed 28 Private MD: ED Physician Benedicto Garcia HPI: 06/26 18:00 This 68 yrs old Female presents to ER via Wheelchair with complaints of pm1 Anemia. 18:00 The patient has shortness of breath with light activity. Onset: The symptoms/episode pm1 began/occurred today. The patient's shortness of breath is aggravated by light activity, is alleviated by rest. Associated signs and symptoms: Pertinent positives: dizziness, Pertinent negatives: chest pain, non-productive cough, productive cough, fever, nausea, numbness in extremities, visual changes, vomiting. Severity of symptoms: in the emergency department the symptoms are worse. The patient has experienced similar episodes in the past, multiple times. The patient has not recently seen a physician. Patient with Hx of CLL and last transfused about 3 weeks ago. Patient reports shortness of breath and dizziness with exertion that is worse than her normal amount of symptomatic anemia. Historical: - Allergies: 17:05 ceftriaxone; sv 17:05 PENICILLINS; sv 17:05 Prednisone; sv - PMHx: 17:05 CLL; Pulmonary Embolism; UTI; sv - PSHx: 17:05 Hysterectomy; sv - Immunization history:: Adult Immunizations up to date. - Social history:: Smoking status: Patient/guardian denies using tobacco. - Ebola Screening: : No symptoms or risks identified at this time. ROS: 18:00 Constitutional: Negative for fever, chills, and weight loss, Eyes: Negative for injury, pm1 pain, redness, and discharge, ENT: Negative for injury, pain, and discharge, Neck: Negative for injury, pain, and swelling, Cardiovascular: Negative for chest pain, palpitations, and edema, Abdomen/GI: Negative for abdominal pain, nausea, vomiting, diarrhea, and constipation, Back: Negative for injury and pain, MS/Extremity: Negative for injury and deformity, Skin: Negative for injury, rash, and discoloration. 18:00 Respiratory: Positive for shortness of breath, Negative for cough, sputum production, wheezing. 18:00 Neuro: Positive for dizziness. Exam: 18:00 Constitutional: This is a well developed, well nourished patient who is awake, alert, pm1 and in no acute distress. Head/Face: Normocephalic, atraumatic. Eyes: Pupils equal round and reactive to light, extra-ocular motions intact. Lids and lashes normal. Conjunctiva and sclera are non-icteric and not injected. Cornea within normal limits. Periorbital areas with no swelling, redness, or edema. ENT: Nares patent. No nasal discharge, no septal abnormalities noted. Tympanic membranes are normal and external auditory canals are clear. Oropharynx with no redness, swelling, or masses, exudates, or evidence of obstruction, uvula midline. Mucous membranes moist. Neck: Trachea midline, no thyromegaly or masses palpated, and no cervical lymphadenopathy. Supple, full range of motion without nuchal rigidity, or vertebral point tenderness. No Meningismus. Chest/axilla: Normal chest wall appearance and motion. Nontender with no deformity. No lesions are appreciated. Cardiovascular: Regular rate and rhythm with a normal S1 and S2. No gallops, murmurs, or rubs. Normal PMI, no JVD. No pulse deficits. Respiratory: Lungs have equal breath sounds bilaterally, clear to auscultation and percussion. No rales, rhonchi or wheezes noted. No increased work of breathing, no retractions or nasal flaring. Abdomen/GI: Soft, non-tender, with normal bowel sounds. No distension or tympany. No guarding or rebound. No evidence of tenderness throughout. Back: No spinal tenderness. No costovertebral tenderness. Full range of motion. 18:00 Skin: Appearance: normal except for affected area, Color: pale. 20:08 Abdomen/GI: Rectal exam: rectal tone normal, Stool: brown, guaiac negative. pm1 Vital Signs: 17:05 BP 122 / 73; Pulse 71; Resp 18; Temp 98.8; Pulse Ox 97% ; Weight 92.08 kg; Height 5 ft. sv 3 in. (160.02 cm); Pain 0/10; 17:46 BP 107 / 75; Pulse 69; Resp 19; Pulse Ox 97% on R/A; kr2 18:48 BP 111 / 59; Pulse 74; Resp 19; Pulse Ox 100% on R/A; kr2 20:49 BP 119 / 59; Pulse 60; Resp 19; Pulse Ox 99% ; kr2 22:00 BP 130 / 59; Pulse 63; Resp 19; Temp 97.9; Pulse Ox 96% on 2 lpm NC; kr2 22:05 BP 116 / 61; Pulse 63; Resp 16; Temp 98.3; Pulse Ox 99% on 2 lpm NC; kr2 22:10 BP 123 / 57; Pulse 59; Resp 15; Temp 98.1; Pulse Ox 98% on 2 lpm NC; kr2 22:15 BP 110 / 61; Pulse 60; Resp 18; Temp 98.5; Pulse Ox 96% on 2 lpm NC; kr2 23:00 BP 112 / 64; Pulse 60; Resp 16; Temp 98.6; Pulse Ox 99% on 2 lpm NC; kr2 17:05 Body Mass Index 35.96 (92.08 kg, 160.02 cm) sv 22:00 Start of blood transfusion kr2 23:00 Care transferred to HARLEY Ceballos, receiving nurse on 4th floor kr2 MDM: 17:11 Patient medically screened. pm1 19:54 Data reviewed: vital signs. Data interpreted: Pulse oximetry: on room air is 100 %. pm1 Interpretation: normal. Counseling: I had a detailed discussion with the patient and/or guardian regarding: the historical points, exam findings, and any diagnostic results supporting the discharge/admit diagnosis, lab results, the need for further work-up and treatment in the hospital. 06/26 17:18 Order name: Basic Metabolic Panel; Complete Time: 19:05 pm1 06/26 17:18 Order name: CBC with Diff; Complete Time: 19:05 pm1 06/26 17:18 Order name: LFT's; Complete Time: 19:05 pm1 06/26 17:18 Order name: Magnesium; Complete Time: 19:05 pm1 06/26 17:18 Order name: NT PRO-BNP; Complete Time: 19:05 pm1 06/26 17:18 Order name: PT-INR; Complete Time: 19:05 pm1 06/26 17:18 Order name: Troponin (emerg Dept Use Only); Complete Time: 19:05 pm1 06/26 17:18 Order name: Type And Screen pm1 06/26 18:40 Order name: Manual Differential; Complete Time: 19:05 EDMS 06/26 20:42 Order name: Packed RBC Leukored -1 [facility] 06/26 20:42 Order name: Hematocrit [facility] 06/26 20:42 Order name: Hemoglobin [facility] 06/26 20:42 Order name: Basic Metabolic Panel [facility] 06/26 20:42 Order name: Basic Metabolic Panel [facility] 06/26 17:18 Order name: XRAY Chest (1 view); Complete Time: 19:05 pm1 06/26 17:18 Order name: EKG; Complete Time: 17:19 pm1 06/26 17:18 Order name: Cardiac monitoring; Complete Time: 17:21 pm1 06/26 17:18 Order name: EKG - Nurse/Tech; Complete Time: 17:39 pm1 06/26 17:18 Order name: IV Saline Lock; Complete Time: 17:39 pm1 06/26 17:18 Order name: Labs collected and sent; Complete Time: 17:22 pm1 06/26 17:18 Order name: O2 Per Protocol; Complete Time: 17:22 pm1 06/26 17:18 Order name: O2 Sat Monitoring; Complete Time: 17:22 pm1 06/26 20:42 Order name: CONS Physician Consult [facility] 06/26 20:42 Order name: Regular [facility] 06/26 20:42 Order name: CBC with Automated Diff [facility] 06/26 20:42 Order name: CBC with Automated Diff [facility] 06/26 20:42 Order name: ABO rpt [facility] 06/26 20:42 Order name: Packed RBCs (Additional Unit) [facility] 06/26 20:42 Order name: ABO/RH typing [facility] 06/26 20:42 Order name: Antibody Screen [facility] Administered Medications: No medications were administered Point of Care Testing: Guaiac: 20:15 Stool Guaiac: Negative; Stool Hemoccult Control: Pass; bb Disposition: 06/26/18 19:56 Hospitalization ordered by Anson Li for Observation. Preliminary diagnosis is Anemia in other chronic diseases classified elsewhere - CLL. - Bed requested for Telemetry/MedSurg (observation). - Status is Observation. kr2 - Condition is Stable. - Problem is new. - Symptoms have improved. UTI on Admission? No Addendum: 06/28/2018 07:15 Co-signature as Attending Physician, Benedicto Garcia MD I agree with the assessment and k dr plan of care. Signatures: Dispatcher [employer] Santa Bowens, RN HARLEY Anju Snatos, RN HARLEY Benedicto Garcia MD MD [facility] Richard Alvares NP HYPERBARIC NURSE pm1 Ro Newell RN RN kr2 Corrections: (The following items were deleted from the chart) 06/26 20:09 19:56 Hospitalization Ordered by Anson Li MD for Observation. Preliminary mw diagnosis is Anemia in other chronic diseases classified elsewhere - CLL. Bed requested for Telemetry/MedSurg (observation). Status is Observation. Condition is Stable. Problem is new. Symptoms have improved. UTI on Admission? No. pm1 23:28 20:09 06/26/2018 19:56 Hospitalization Ordered by Anson Li MD for Observation. kr2 Preliminary diagnosis is Anemia in other chronic diseases classified elsewhere - CLL. Bed requested for Telemetry/MedSurg (observation). Status is Observation. Condition is Stable. Problem is new. Symptoms have improved. UTI on Admission? No. mw
--- NOTE | 2018-06-26 19:57 | ER ---
Nurse's Notes [facility] Name: Lisy Betts Age: 68 yrs Sex: Female : 1950 Arrival Date: 06/26/2018 Time: 16:59 Bed 28 Private MD: Diagnosis: Anemia in other chronic diseases classified elsewhere-CLL Presentation: 06/26 17:03 Presenting complaint: Patient states: dizziness, lightheaded, SOB has increased since sv Monday. Hx of blood transfusion, last was 06/03/18. Transition of care: patient was not received from another setting of care. Onset of symptoms was June 22, 2018. Care prior to arrival: None. 17:03 Method Of Arrival: Wheelchair sv 17:03 Acuity: ARNOLD 3 sv 17:40 Risk Assessment: Do you want to hurt yourself or someone else? Patient reports no kr2 desire to harm self or others. Initial Sepsis Screen: Does the patient meet any 2 criteria? No. Patient's initial sepsis screen is negative. Does the patient have a suspected source of infection? No. Patient's initial sepsis screen is negative. Triage Assessment: 17:40 General: Appears in no apparent distress. comfortable, well groomed, Behavior is calm, kr2 cooperative, appropriate for age. Pain: Denies pain. Historical: - Allergies: 17:05 ceftriaxone; sv 17:05 PENICILLINS; sv 17:05 Prednisone; sv - PMHx: 17:05 CLL; Pulmonary Embolism; UTI; sv - PSHx: 17:05 Hysterectomy; sv - Immunization history:: Adult Immunizations up to date. - Social history:: Smoking status: Patient/guardian denies using tobacco. - Ebola Screening: : No symptoms or risks identified at this time. Screenin:39 Abuse screen: Denies threats or abuse. Denies injuries from another. Nutritional kr2 screening: No deficits noted. Tuberculosis screening: No symptoms or risk factors identified. Fall Risk IV access (20 points). Assessment: 17:41 General: Appears in no apparent distress. comfortable, Behavior is calm, cooperative, kr2 appropriate for age. Pain: Denies pain. Neuro: Level of Consciousness is awake, alert, obeys commands, Speech is normal. Neuro: Reports. Cardiovascular: Capillary refill < 3 seconds in bilateral fingers Patient's skin is warm and dry. Rhythm is sinus rhythm. Cardiovascular: Reports fatigue. Respiratory: Airway is patent Respiratory effort is even, unlabored, Respiratory pattern is regular, symmetrical. GI: Abdomen is non-distended. EENT: Oral mucosa is dry. Derm: Skin is intact, with poor turgor Skin is pink, warm \T\ dry. Musculoskeletal: Circulation, motion, and sensation intact. 18:38 Reassessment: MONICO Ramos and Dr. Huynh notified of critical lab values WBC 99.4, Hgb ss 7.1 and Plt 19. 18:48 Reassessment: Patient appears in no apparent distress at this time. Patient and/or kr2 family updated on plan of care and expected duration. Pain level reassessed. Patient is alert, oriented x 3, equal unlabored respirations, skin warm/dry/pink. Patient denies pain at this time. 19:45 Reassessment: Patient appears in no apparent distress at this time. Patient and/or kr2 family updated on plan of care and expected duration. Pain level reassessed. Patient is alert, oriented x 3, equal unlabored respirations, skin warm/dry/pink. Patient denies pain at this time. 20:48 Reassessment: Patient appears in no apparent distress at this time. Patient and/or kr2 family updated on plan of care and expected duration. Pain level reassessed. Patient is alert, oriented x 3, equal unlabored respirations, skin warm/dry/pink. Patient given sandwich and water as requested Patient denies pain at this time. 21:15 Reassessment: Patient appears in no apparent distress at this time. Consent forms kr2 signed for blood transfusion. Received call from lab and only 1 unit of AB+ RBC's available for transfusion, another unit will be ordered by lab. Provider notified. 21:30 Reassessment: Patient appears in no apparent distress at this time. Patient and/or kr2 family updated on plan of care and expected duration. Pain level reassessed. Patient is alert, oriented x 3, equal unlabored respirations, skin warm/dry/pink. Patient denies pain at this time. 22:00 Reassessment: Transfusion started at this time after verification of blood products and kr2 patient with Sapphire Ordoñez RN. See transfusion flow sheet. 22:30 Reassessment: Patient appears in no apparent distress at this time. Patient and/or kr2 family updated on plan of care and expected duration. Pain level reassessed. Patient is alert, oriented x 3, equal unlabored respirations, skin warm/dry/pink. Patient denies pain at this time. 22:55 Reassessment: Patient appears in no apparent distress at this time. Patient and/or kr2 family updated on plan of care and expected duration. Pain level reassessed. Patient is alert, oriented x 3, equal unlabored respirations, skin warm/dry/pink. Transfusion continues without complications. Vital Signs: 17:05 BP 122 / 73; Pulse 71; Resp 18; Temp 98.8; Pulse Ox 97% ; Weight 92.08 kg; Height 5 ft. sv 3 in. (160.02 cm); Pain 0/10; 17:46 BP 107 / 75; Pulse 69; Resp 19; Pulse Ox 97% on R/A; kr2 18:48 BP 111 / 59; Pulse 74; Resp 19; Pulse Ox 100% on R/A; kr2 20:49 BP 119 / 59; Pulse 60; Resp 19; Pulse Ox 99% ; kr2 22:00 BP 130 / 59; Pulse 63; Resp 19; Temp 97.9; Pulse Ox 96% on 2 lpm NC; kr2 22:05 BP 116 / 61; Pulse 63; Resp 16; Temp 98.3; Pulse Ox 99% on 2 lpm NC; kr2 22:10 BP 123 / 57; Pulse 59; Resp 15; Temp 98.1; Pulse Ox 98% on 2 lpm NC; kr2 22:15 BP 110 / 61; Pulse 60; Resp 18; Temp 98.5; Pulse Ox 96% on 2 lpm NC; kr2 23:00 BP 112 / 64; Pulse 60; Resp 16; Temp 98.6; Pulse Ox 99% on 2 lpm NC; kr2 17:05 Body Mass Index 35.96 (92.08 kg, 160.02 cm) sv 22:00 Start of blood transfusion kr2 23:00 Care transferred to HARLEY Ceballos, receiving nurse on 4th floor kr2 ED Course: 16:59 Patient arrived in ED. mr 17:04 Triage completed. sv 17:05 Arm band placed on left wrist. sv 17:10 Richard Alvares NP is PHCP. pm1 17:10 Benedicto Garcia MD is Attending Physician. pm1 17:20 Inserted saline lock: 20 gauge in left antecubital area, using aseptic technique. Blood kr2 collected. 17:21 Ro Newell, RN is Primary Nurse. kr2 17:34 EKG done, by solid waste landfill technician. reviewed by Richard Alvares NP. sm3 17:40 Patient has correct armband on for positive identification. Bed in low position. Call kr2 light in reach. Side rails up X2. bus monitor on. Pulse ox on. NIBP on. Door closed. Warm blanket given. Head of bed elevated. 18:00 XRAY Chest (1 view) In Process Unspecified. EDMS 19:54 Anson Li MD is Hospitalizing Provider. pm1 23:13 No provider procedures requiring assistance completed. Patient admitted, IV remains in kr2 place. Administered Medications: No medications were administered Point of Care Testing: Guaiac: 20:15 Stool Guaiac: Negative; Stool Hemoccult Control: Pass; bb Outcome: 06/25 22:55 Condition: stable kr2 Instructed on the need for admit, Demonstrated understanding of instructions. 06/26 19:56 Decision to Hospitalize by Provider. pm1 22:55 Admitted to Tele accompanied by nurse, accompanied by tech, via stretcher, room 415, kr2 with oxygen, with chart, Report called to Lin, blood transfusion continued upon transport to room 415. Transfusion flow sheet signed and accepted by HARLEY Ceballos 23:28 Patient left the ED. kr2 Signatures: Dispatcher [employer] EDKY Santa Ugarte RN RN sv Rivera, Maria mr Kimberly Cohen RN RN bb Smirch, Shelby, RN RN ss Marinas, Patrick, NP [employer]W SCHEDULER pm1 Ro Newell, HARLEY SOUZA kr2 Dona Jaimes 3 Corrections: (The following items were deleted from the chart) 23:28 21:15 Reassessment: Patient appears in no apparent distress at this time. Consent forms kr2 signed for blood transfusion kr2 : 22:00 Reassessment: Transfusion started at this time after verification of blood kr2 products and patient with Sapphire Ordoñez RN. See transfusion flow sheet kr2
[2018-06-26] MEDS ORDERED: ONDANSETRON 4 MG/2 ML VIAL IV PRN (20:38)
[2018-06-26] MEDS ORDERED: NA CHLORIDE 0.9% 250 ML IV SCH (21:00)
--- NOTE | 2018-06-26 21:29 | P.HP ---
Certification for Inpatient Patient admitted to: Observation With expected LOS: <2 Midnights Practitioner: I am a practitioner with admitting privileges, knowledge of patient current condition, hospital course, and medical plan of care. Services: Services provided to patient in accordance with Admission requirements found in Title 42 Section 412.3 of the Code of Federal Regulations Patient History Date of Service: 06/26/18 Reason for admission: Symptomatic anemia, CLL History of Present Illness: Ms. Betts is a 68-year-old woman with history of CLL under chemotherapy treatment follow-up at [facility] in [place], who came to the hospital complaining of progressive weakness and shortness of breath, since 3 days ago. The patient states that she was almost about to faint today, and for that reason she decided to come to ER for further evaluation. No history of fever or chills, no cough, nausea or vomiting. Lab work was remarkable for WBC 99 K, hemoglobin 7.1, and platelets 19. She denied any black stools, however she frequently has some gums, nose, vaginal bleeding. At presentation her BP was within normal limits, HR 72 bpm, afebrile. Allergies ceftriaxone [From Rocephin] Allergy (Verified 03/26/18 03:04) Hives Penicillins Allergy (Verified 03/26/18 03:04) Hives prednisone Adverse Reaction (Verified 03/26/18 03:04) Shortness of breath Home medications list reviewed: Yes Home Medications: Pantoprazole [Protonix Tab] 40 mg PO BID #60 tab 06/04/18 - Past Medical/Surgical History Diabetic: No -: Chronic Lymphocytic Leukemia -: 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 -: PE -: cyst removed from left breast -: left ankle surgery -: Hysterectomy 2018 -: Abdominal hernia repair with mesh placement - Family History Mother -: Heart disease, Other (see notes) Notes: ALZ, [place] Father -: Cancer Notes: Pancreatic [place] - Social History Smoking Status: Never smoker Alcohol use: No CD- Drugs: No Caffeine use: Yes Place of Residence: Home Review of Systems 10-point ROS is otherwise unremarkable Physical Examination - Physical Exam General: Alert, In no apparent distress HEENT: Atraumatic, PERRLA, Mucous membr. moist/pink, EOMI, Sclerae nonicteric Neck: Supple, 2+ carotid pulse no bruit, No LAD, Without JVD or thyroid abnormality Respiratory: Clear to auscultation bilaterally, Normal air movement Cardiovascular: Regular rate/rhythm, Normal S1 S2 Gastrointestinal: Normal bowel sounds, No tenderness Musculoskeletal: No tenderness Integumentary: No rashes Neurological: Normal gait, Normal speech, Normal strength at 5/5 x4 extr, Normal tone, Normal affect Lymphatics: Other (Bilateral upper neck if Lymphadenopathy is palpable) - Studies Laboratory Data (last 24 hrs) 06/26/18 17:20: PT 12.0, INR 1.02 06/26/18 17:20: WBC 99.4 H* D, Hgb 7.1 L*, Hct 22.3 L, Plt Count 19 L* D 06/26/18 17:20: Sodium 142, Potassium 4.0, BUN 13, Creatinine 0.80, Glucose 100 , Magnesium 2.1, Total Bilirubin 0.3, AST 11 L, ALT 16, Alkaline Phosphatase 66 Assessment and Plan - Plan Assessment: 1. Symptomatic anemia: 2. Thrombocytopenia 3. Generalize weakness 4. CLL Plan: Will admit the patient to the hospital under observation, in order to transfuse at least 1 unit of PRBC due to symptomatic anemia. Will consult Dr Snider for farther evaluation and recommendation. - Advance Directives Does patient have a Living Will: No Does patient have a Durable POA for Healthcare: No - Code Status/Comfort Care Code Status Assessed: Yes Code Status: Full Code
[2018-06-26] MEDS ORDERED: NA CHLORIDE 0.9% 250 ML ONE (21:39)
[2018-06-26] MEDS ORDERED: DIPHENHYDRAMINE 50 MG/ML VIAL ONE (21:52)
[2018-06-26] MEDS ORDERED: DIPHENHYDRAMINE 50 MG/ML VIAL IV ONE (22:52)
[2018-06-27 01:30] VITALS: BMI 35.9
[2018-06-27 06:55] LABS: Absolute Lymphocytes (CBC) 57.3 K/uL (0.7-4.9); Absolute Monocytes 0.4 K/uL (0.1-1.3); Basophils % 0.1 % (0-1.3); Eosinophils % 0.1 % (0-4.4); Hematocrit 25.4 % (36.0-45.0); Lymphocytes % 97.4 % (15.3-44.8); MCH 32.3 pg (27.0-35.0); MCV 94.6 fL (80-100); MPV 9.5 fL (7.6-11.3); Monocytes % 0.7 % (3.3-12.3); RBC Red Blood Cell Count 2.69 M/uL (3.86-4.86)
[2018-06-27 07:03] LABS: BUN Blood Urea Nitrogen 13 mg/dL (7-18); Bicarbonate 30 mmol/L (21-32); Glucose Level 91 mg/dL (74-106); Potassium 3.8 mmol/L (3.5-5.1); Sodium Level 144 mmol/L (136-145)
--- NOTE | 2018-06-27 11:49 | EKG ---
Test Date: 2018-06-26 Test Time: 17:32:15 Bottle Blower: ALEXEY MEASUREMENT RESULTS: Intervals: Rate: 66 MD: 150 QRSD: 80 QT: 404 QTc: 423 Rittman: P: -13 MD: 150 QRS: 18 T: 50 INTERPRETIVE STATEMENTS: Normal sinus rhythm Cannot rule out Anterior infarct, age undetermined Abnormal ECG Compared to ECG 06/02/2018 19:16:19 Sinus bradycardia no longer present Myocardial infarct finding still present Electronically Signed On 06-27-18 11:46:38 CDT by Markos Barragan
[2018-06-27] MEDS ORDERED: TRAMADOL HCL 50 MG TAB PO PRN (12:15)
[2018-06-27 12:35] VITALS: BP 126/73; TEMP 98
[2018-06-27 14:41] LABS: Blood Morphology Comment NOT SEEN (NOT SEEN); Platelet Estimate DECR; Smudge Cells PRESENT
[2018-06-27 14:54] VITALS: O2SAT 97
[2018-06-27] MEDS ORDERED: DIPHENHYDRAMINE 25 MG TAB/CAP PO ONE (15:00)
--- NOTE | 2018-06-27 16:07 | P.SSS ---
Patient History Date of Service: 06/27/18 Reason for admission: Symptomatic anemia, CLL History of Present Illness: Ms. Betts is a 68-year-old woman with history of CLL under chemotherapy treatment follow-up at [facility] in [place], who came to the hospital complaining of progressive weakness and shortness of breath, since 3 days ago. The patient states that she was almost about to faint today, and for that reason she decided to come to ER for further evaluation. No history of fever or chills, no cough, nausea or vomiting. Lab work was remarkable for WBC 99 K, hemoglobin 7.1, and platelets 19. She denied any black stools, however she frequently has some gums, nose, vaginal bleeding. At presentation her BP was within normal limits, HR 72 bpm, afebrile. Allergies ceftriaxone [From Rocephin] Allergy (Verified 03/26/18 03:04) Hives Penicillins Allergy (Verified 03/26/18 03:04) Hives prednisone Adverse Reaction (Verified 03/26/18 03:04) Shortness of breath Home Medications: Ibrutinib [Imbruvica] 280 mg PO DAILY 06/27/18 Omeprazole [Prilosec] 40 mg PO DAILY 06/27/18 traMADol HCL [Ultram] 50 mg PO Q6H PRN 06/27/18 - Past Medical/Surgical History Has patient received pneumonia vaccine in the past: No Diabetic: No -: Chronic Lymphocytic Leukemia -: 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 -: PE -: GERD -: cyst removed from left breast -: left ankle surgery -: Hysterectomy 2018 -: Abdominal hernia repair with mesh placement - Family History Mother -: Heart disease, Other (see notes) Notes: ALZ, [place] Father -: Cancer Notes: Pancreatic [place] - Social History Smoking Status: Never smoker Alcohol use: No CD- Drugs: No Caffeine use: Yes Place of Residence: Home Review of Systems 10-point ROS is otherwise unremarkable Physical Examination - Vital Signs Temperature: 98 F Blood Pressure: 126/73 Pulse: 60 Respirations: 18 Pulse Ox (%): 99 - Physical Exam General: Alert, In no apparent distress HEENT: Atraumatic, PERRLA, Mucous membr. moist/pink, EOMI, Sclerae nonicteric Neck: Supple, 2+ carotid pulse no bruit, No LAD, Without JVD or thyroid abnormality Respiratory: Clear to auscultation bilaterally, Normal air movement Cardiovascular: Regular rate/rhythm, Normal S1 S2 Gastrointestinal: Normal bowel sounds, No tenderness Musculoskeletal: No tenderness Integumentary: No rashes Neurological: Normal gait, Normal speech, Normal strength at 5/5 x4 extr, Normal tone, Normal affect Lymphatics: No axilla or inguinal lymphadenopathy - Studies Laboratory Data (last 24 hrs) 06/26/18 17:20: PT 12.0, INR 1.02 06/26/18 17:20: WBC 99.4 H* D, Hgb 7.1 L*, Hct 22.3 L, Plt Count 19 L* D 06/26/18 17:20: Sodium 142, Potassium 4.0, BUN 13, Creatinine 0.80, Glucose 100 , Magnesium 2.1, Total Bilirubin 0.3, AST 11 L, ALT 16, Alkaline Phosphatase 66 Treatment Summary: Discharge diagnosis 1. Symptomatic anemia: 2. Thrombocytopenia 3. Generalize weakness 4. CLL Hospital Course: Overall during the hospital course patient remained stable Patient was initially admitted to the hospital for symptomatic anemia. Patient was transfused 1 unit of PRBC in which brought her hemoglobin up to 8.7. Patient had resolution of her symptoms. At that time patient's platelet was 15 and thus patient was also transfused 1 unit of platelet for platelets of 15 and active bleeding in her mouth. On heme oncology was called who advised that patient needs to go back to her heme oncologist in [place] and set up an appointment to follow up regarding her chemotherapy if patient wishes to change to a local heme oncology she will need to make an appointment with the oncologist office after she discusses with her oncologist in [place]. Patient was notified and patient agreed with the plan and thus was discharged home under stable condition. - Disposition Disposition: ROUTINE DISCHARGE Condition: GOOD Patient Discharge Instructions: okay to DC post Plt tranfusion. F,u with Oncology Diet: Regular Activity: Touch-down
[2018-06-27 17:06] LABS: MPV 9.3 fL (7.6-11.3)
[2018-06-27 17:08] LABS: Platelet Estimate DECR
[2018-06-28] MEDS ORDERED: PANTOPRAZOLE 40MG TABLET PO SCH (06:30)
== END 2018-06-27 18:47 | disposition home or self-care (01) ==
LOC: ER 16:56 → 4TH 20:27
PROVIDERS: ADMIT Internal Medicine; ATTEND Internal Medicine
DX: D64.9 Anemia, unspecified (principal); D69.6 Thrombocytopenia, unspecified; R53.1 Weakness; C91.10 Chronic lymphocytic leukemia of B-cell type not having achieved remission; K21.9 Gastro-esophageal reflux disease without esophagitis; Z88.0 Allergy status to penicillin
CPT/HCPCS: 36415 ×2; 71045; 80048 ×2; 80076; 83735; 83880; 84484; 85025 ×2; 85049; 85610; 86850; 86900; 86901; 93005; 94760 ×2; 99285; P9016 ×2; P9035

== ENCOUNTER 2018-07-01 14:41 | Emergency (ER) | payer OTHER ==
[2018-07-01 15:30] LABS: Urine Blood NEGATIVE (NEG); Urine Glucose NEGATIVE (NEG); Urine Protein NEGATIVE (NEG)
[2018-07-01 15:50] LABS: Absolute Lymphocytes (CBC) 70.5 K/uL (0.7-4.9); Absolute Monocytes 1.2 K/uL (0.1-1.3); Absolute Neutrophil 1.2 K/uL (1.8-8.0); Basophils % 0.1 % (0-1.3); Hematocrit 24.4 % (36.0-45.0); Lymphocytes % 96.6 % (15.3-44.8); MCV 95.7 fL (80-100); MPV 11.1 fL (7.6-11.3); Monocytes % 1.6 % (3.3-12.3); RBC Red Blood Cell Count 2.55 M/uL (3.86-4.86)
[2018-07-01 15:51] LABS: Protime INR 0.98
[2018-07-01 16:02] LABS: ALT/SGPT 15 U/L (12-78); AST/SGOT 9 U/L (15-37); Albumin 2.9 g/dL (3.4-5.0); Alkaline Phosphatase 68 U/L (45-117); BUN Blood Urea Nitrogen 13 mg/dL (7-18); Bicarbonate 27 mmol/L (21-32); Bilirubin Direct < 0.1 mg/dL (0-0.2); Bilirubin Total 0.2 mg/dL (0.2-1.0); Glucose Level 91 mg/dL (74-106); Lipase 104 U/L (73-393); Magnesium 2.1 mg/dL (1.8-2.4); NT PRO-BNP 119 pg/mL (<125); Potassium 3.9 mmol/L (3.5-5.1); Protein, Total 5.9 g/dL (6.4-8.2); Sodium Level 141 mmol/L (136-145); Troponin (Emerg Dept Use Only) < 0.02 ng/mL (0.0-0.045)
--- NOTE | 2018-07-01 16:07 | RAD REPORT ---
EXAM DESCRIPTION: RAD - Chest Single View - 07/01/2018 4:01 pm CLINICAL HISTORY: COUGH Chest pain. COMPARISON: Chest Single View dated 06/26/2018; Abdomen 1 View (KUB) dated 06/03/2018; Chest Single Vi ew dated 05/28/2018; Chest Single View dated 05/11/2018 FINDINGS: Portable technique limits examination quality. The lungs are grossly clear. The heart is normal in size. No displaced fractures. IMPRESSION: No acute intrathoracic process suspected.
[2018-07-01] MEDS ORDERED: NA CHLORIDE 0.9% 1,000 ML ONE (16:12)
--- NOTE | 2018-07-01 16:32 | ER ---
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 Transition of care: patient was not received from another setting of care. Onset of symptoms was July 01, 2018. Risk Assessment: Do you want to hurt yourself or someone else? Patient reports no desire to harm self or others. Initial Sepsis Screen: Does the patient meet any 2 criteria? No. Patient's initial sepsis screen is negative. Does the patient have a suspected source of infection? No. Patient's initial sepsis screen is negative. Care prior to arrival: None. 14:47 Method Of Arrival: Ambulatory la1 14:47 Acuity: ARNOLD 3 la1 Historical: - Allergies: 14:47 PENICILLINS; la1 14:47 ceftriaxone; la1 14:47 Prednisone; la1 - PMHx: 14:47 CLL; Pulmonary Embolism; UTI; la1 - Immunization history:: Adult Immunizations up to date. - Social history:: Smoking status: Patient/guardian denies using tobacco. - Ebola Screening: : No symptoms or risks identified at this time. - Family history:: not pertinent. Screenin:53 Abuse screen: Denies threats or abuse. Denies injuries from another. Nutritional rv screening: No deficits noted. Tuberculosis screening: No symptoms or risk factors identified. Fall Risk None identified. Assessment: 14:52 General: Appears in no apparent distress. comfortable, Behavior is calm, cooperative. rv Pain: Denies pain. Neuro: Level of Consciousness is awake, alert, obeys commands, Oriented to person, place, time, situation. Cardiovascular: Capillary refill < 3 seconds. Respiratory: Airway is patent. GI: No signs and/or symptoms were reported involving the gastrointestinal system. : No signs and/or symptoms were reported regarding the genitourinary system. EENT: No signs and/or symptoms were reported regarding the EENT system. Derm: Skin is intact. Vital Signs: 14:48 Pulse 70; Resp 16; Temp 98.3; Pulse Ox 100% on R/A; Weight 92.08 kg; Height 5 ft. 3 in. la1 (160.02 cm); 14:50 BP 132 / 51; la1 14:48 Body Mass Index 35.96 (92.08 kg, 160.02 cm) la1 ED Course: 14:44 Patient arrived in ED. sb2 14:47 Triage completed. la1 14:47 Arm band placed on right wrist. la1 14:51 Javed Osborne MD is Attending Physician. [facility] 14:53 Patient has correct armband on for positive identification. Bed in low position. Call rv light in reach. Side rails up X 1. Pulse ox on. NIBP on. 15:20 Inserted saline lock: 20 gauge in right antecubital area, using aseptic technique. rv Blood collected. 15:20 First set of blood cultures drawn by me, Urine collected: clean catch specimen, clear, rv Flu and/or RSV swab sent to lab. Strep swab sent to lab. X-ray(s) taken. 15:40 Second set of blood cultures drawn by me. rv 16:00 Notified ED physician of a critical lab result(s). WBC-73, PLT-31. la1 16:00 Influenza Screen (a \T\ B) Sent. rv 16:01 XRAY Chest (1 view) In Process Unspecified. EDMO 17:17 Throat Culture Sent. jp3 18:11 No provider procedures requiring assistance completed. IV discontinued, bleeding rv controlled, No redness/swelling at site. Pressure dressing applied. Administered Medications: 15:30 Drug: NS 0.9% 1000 ml Route: IV; Rate: 1 bolus; Site: right antecubital; rv 18:08 Follow up: IV Status: Completed infusion rv Outcome: 16:30 Discharge ordered by . nathaniel 18:11 Discharged to home ambulatory. rv 18:11 Condition: good 18:11 Discharge instructions given to patient, Instructed on discharge instructions, follow up and referral plans. Demonstrated understanding of instructions, follow-up care. 18:12 Patient left the ED. rv Signatures: Dispatcher [employer] EDMS Javed Osborne MD MD cha Attema, Lee, RN RN la1 Mile Dumont sb2 Amadeo Tan RN RN rv Flavio Carpio jp3
--- NOTE | 2018-07-01 16:32 | EDPHYS ---
Physician Documentation [facility] Name: Lisy Bocanegra Age: 68 yrs Sex: Female : 1950 Arrival Date: 07/01/2018 Time: 14:44 Bed 30 Private MD: ED Physician Javed Osborne HPI: 07/01 15:14 This 68 yrs old Female presents to ER via Ambulatory with complaints of Flu nathaniel Symptoms. 15:14 The patient or guardian reports cough. Modifying factors: The symptoms are alleviated nathaniel by nothing. the symptoms are aggravated by nothing. Associated signs and symptoms: Pertinent positives: sore throat. Onset: The symptoms/episode began/occurred 2 day(s) ago. Severity of symptoms: At their worst the symptoms were mild in the emergency department the symptoms are unchanged. The patient has experienced similar episodes in the past, a few times. Historical: - Allergies: 14:47 PENICILLINS; la1 14:47 ceftriaxone; la1 14:47 Prednisone; la1 - PMHx: 14:47 CLL; Pulmonary Embolism; UTI; la1 - Immunization history:: Adult Immunizations up to date. - Social history:: Smoking status: Patient/guardian denies using tobacco. - Ebola Screening: : No symptoms or risks identified at this time. - Family history:: not pertinent. ROS: 15:14 Constitutional: Negative for fever, chills, and weight loss, Eyes: Negative for injury, nathaniel pain, redness, and discharge, ENT: Negative for injury, pain, and discharge, Neck: Negative for injury, pain, and swelling, Cardiovascular: Negative for chest pain, palpitations, and edema, Respiratory: Negative for shortness of breath, cough, wheezing, and pleuritic chest pain, Abdomen/GI: Negative for abdominal pain, nausea, vomiting, diarrhea, and constipation, Back: Negative for injury and pain, : Negative for injury, bleeding, discharge, and swelling, MS/Extremity: Negative for injury and deformity, Skin: Negative for injury, rash, and discoloration, Neuro: Negative for headache, weakness, numbness, tingling, and seizure, Psych: Negative for depression, anxiety, suicide ideation, homicidal ideation, and hallucinations, Allergy/Immunology: Negative for hives, rash, and allergies, Endocrine: Negative for neck swelling, polydipsia, polyuria, polyphagia, and marked weight changes, Hematologic/Lymphatic: Negative for swollen nodes, abnormal bleeding, and unusual bruising. 15:14 MS/extremity: Negative for acute changes. Exam: 15:14 Constitutional: This is a well developed, well nourished patient who is awake, alert, nathaniel and in no acute distress. Head/Face: Normocephalic, atraumatic. Eyes: Pupils equal round and reactive to light, extra-ocular motions intact. Lids and lashes normal. Conjunctiva and sclera are non-icteric and not injected. Cornea within normal limits. Periorbital areas with no swelling, redness, or edema. ENT: Nares patent. No nasal discharge, no septal abnormalities noted. Tympanic membranes are normal and external auditory canals are clear. Oropharynx with no redness, swelling, or masses, exudates, or evidence of obstruction, uvula midline. Mucous membranes moist. Chest/axilla: Normal chest wall appearance and motion. Nontender with no deformity. No lesions are appreciated. Cardiovascular: Regular rate and rhythm with a normal S1 and S2. No gallops, murmurs, or rubs. Normal PMI, no JVD. No pulse deficits. Respiratory: Lungs have equal breath sounds bilaterally, clear to auscultation and percussion. No rales, rhonchi or wheezes noted. No increased work of breathing, no retractions or nasal flaring. Abdomen/GI: Soft, non-tender, with normal bowel sounds. No distension or tympany. No guarding or rebound. No evidence of tenderness throughout. Back: No spinal tenderness. No costovertebral tenderness. Full range of motion. Skin: Warm, dry with normal turgor. Normal color with no rashes, no lesions, and no evidence of cellulitis. MS/ Extremity: Pulses equal, no cyanosis. Neurovascular intact. Full, normal range of motion. Neuro: Awake and alert, GCS 15, oriented to person, place, time, and situation. Cranial nerves II-XII grossly intact. Motor strength 5/5 in all extremities. Sensory grossly intact. Cerebellar exam normal. Normal gait. Psych: Awake, alert, with orientation to person, place and time. Behavior, mood, and affect are within normal limits. 15:14 Neck: External neck: is normal, C-spine: appears grossly normal, no acute changes, Thyroid: appears normal, no acute changes, Trachea: is midline with no obvious abnormalities, no acute changes, ROM/movement: is normal, no acute changes, Meningeal signs: are not present, Kernig's sign is negative, Brudzinski's sign is negative, Lymph nodes: lymphadenopathy is appreciated, anterior cervical nodes. Vital Signs: 14:48 Pulse 70; Resp 16; Temp 98.3; Pulse Ox 100% on R/A; Weight 92.08 kg; Height 5 ft. 3 in. la1 (160.02 cm); 14:50 BP 132 / 51; la1 14:48 Body Mass Index 35.96 (92.08 kg, 160.02 cm) la1 MDM: 14:51 Patient medically screened. [facility] 15:17 Data reviewed: vital signs, nurses notes, lab test result(s), EKG, radiologic studies, [facility] CT scan, plain films. 07/01 15:13 Order name: Basic Metabolic Panel; Complete Time: 16:13 [facility] 07/01 15:13 Order name: CBC with Diff; Complete Time: 21:18 [facility] 07/01 15:13 Order name: LFT's; Complete Time: 16:13 [facility] 07/01 15:13 Order name: Magnesium; Complete Time: 16:13 [facility] 07/01 15:13 Order name: NT PRO-BNP; Complete Time: 16:13 [facility] 07/01 15:13 Order name: PT-INR; Complete Time: 16:13 [facility] 07/01 15:13 Order name: Troponin (emerg Dept Use Only); Complete Time: 16:13 [facility] 07/01 15:13 Order name: Lipase; Complete Time: 16:13 [facility] 07/01 15:13 Order name: Urine Culture [facility] 07/01 15:13 Order name: Blood Culture Adult (2) [facility] 07/01 15:13 Order name: Strep; Complete Time: 16:13 [facility] 07/01 15:16 Order name: Urine Dipstick--Ancillary (enter results); Complete Time: 16:13 07/01 15:17 Order name: Influenza Screen (a \T\ B) [facility] 07/01 15:18 Order name: Influenza Screen (A ; Complete Time: 17:03 [facility] 07/01 15:13 Order name: XRAY Chest (1 view); Complete Time: 16:13 [facility] 07/01 15:13 Order name: EKG; Complete Time: 15:14 [facility] 07/01 15:13 Order name: Cardiac monitoring; Complete Time: 16:00 [facility] 07/01 15:13 Order name: EKG - Nurse/Tech; Complete Time: 16: [facility] 07/01 15:13 Order name: IV Saline Lock; Complete Time: 15:31 [facility] 07/01 15:13 Order name: Labs collected and sent; Complete Time: 15: [facility] 07/01 15:13 Order name: O2 Per Protocol; Complete Time: 15: [facility] 07/01 15:13 Order name: O2 Sat Monitoring; Complete Time: 16: [facility] 07/01 15:13 Order name: Urine Dipstick-Ancillary (obtain specimen); Complete Time: 15: [facility] 07/01 16:00 Order name: Manual Differential; Complete Time: 21:18 [facility] 07/01 16:04 Order name: Throat Culture EDID Administered Medications: 15:30 Drug: NS 0.9% 1000 ml Route: IV; Rate: 1 bolus; Site: right antecubital; rv 18:08 Follow up: IV Status: Completed infusion rv Disposition: 07/01/18 16:30 Discharged to Home. 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 - Condition is Stable. - Discharge Instructions: Weakness, Chemotherapy, Weakness, Vsxd-du-Hgic, Chronic Myelogenous Leukemia. - Medication Reconciliation Form, Thank You Letter, Antibiotic Education, Prescription Opioid Use form. - Follow up: Private Physician; When: 2 - 3 days; Reason: Recheck today's complaints, Continuance of care, Re-evaluation by your physician. - Problem is new. - Symptoms have improved. Addendum: 07/02/2018 21:18 Addendum: this is dr javed osborne, corrections for the original chart for ms lisy bocanegra, complaint of painful lymph nodes, right neck, fatigue and headache.pt has been positive for weight loss, bleeding from gums but not currently bleeding at this time. pt states to feel sick all over. diagnosis is chronic lymphocytic leukemia not chronic myeloid leukemia. javed osborne md. Signatures: Dispatcher [employer] [facility] Javed Osborne MD MD cha Attema, Lee, RN RN la1 Amadeo Tan RN RN rv Corrections: (The following items were deleted from the chart) 07/01 18:12 16:30 07/01/2018 16:30 Discharged to Home. Impression: Atypical chronic myeloid rv leukemia, BCR/ABL-negative, not having achieved remission; Malaise and fatigue. Condition is Stable. Forms are Medication Reconciliation Form, Thank You Letter, Antibiotic Education, Prescription Opioid Use. Follow up: Private Physician; When: 2 - 3 days; Reason: Recheck today's complaints, Continuance of care, Re-evaluation by your physician. Problem is new. Symptoms have improved. nathaniel
[2018-07-01 17:34] LABS: Platelet Estimate DECR
[2018-07-01 17:35] LABS: Blood Morphology Comment NOT SEEN (NOT SEEN)
[2018-07-01 17:36] LABS: Smudge Cells PRESENT
[2018-07-01 18:15] VITALS: TEMP 98.3; O2SAT 100
[2018-07-01 18:16] VITALS: BP 132/51
--- NOTE | 2018-07-02 08:09 | EKG ---
Test Date: 2018-07-01 Test Time: 15:55:37 Silk Screen Frame Assembler: MEASUREMENT RESULTS: Intervals: Rate: 61 [place]: 158 QRSD: 88 QT: 412 QTc: 414 [place]: P: -1 [place]: 158 QRS: 41 T: 53 INTERPRETIVE STATEMENTS: Normal sinus rhythm Normal ECG Compared to ECG 06/26/2018 17:32:15 Myocardial infarct finding no longer present Electronically Signed On 07-02-18 08:08:27 CDT by Stevan Olivia
== END 2018-07-01 18:12 | disposition home or self-care (01) ==
LOC: ER 14:41
DX: C91.10 Chronic lymphocytic leukemia of B-cell type not having achieved remission (principal); R53.83 Other fatigue; Z88.0 Allergy status to penicillin; Z88.8 Allergy status to other drugs, medicaments and biological substances
CPT/HCPCS: 36415; 71045; 80048; 80076; 81003; 83690; 83735; 83880; 84484; 85025; 85610; 87040 ×2; 87070; 87081; 87086; 87088; 87804 ×2; 93005; 96360; 96361; 99284; J7030

== ENCOUNTER 2018-07-03 16:26 | Emergency (ER) | payer OTHER ==
[2018-07-03 17:43] LABS: Hematocrit 23.1 % (36.0-45.0)
--- NOTE | 2018-07-03 17:52 | RAD REPORT ---
EXAM DESCRIPTION: CT - Head Brain Wo Cont - 07/03/2018 5:43 pm CLINICAL HISTORY: Dizziness, syncope COMPARISON: CT head October 2017 TECHNIQUE: Axial 5 mm thick images of the head were obtained without IV contrast. All CT scans are performed using dose optimization technique as appropriate and may include automated exposure control or mA/KV adjustment according to patient size. FINDINGS: No intracranial hemorrhage, mass, edema or shift of mid-line structures. No acute infarcti on changes seen. No abnormal extra-axial fluid collections. Ventricles are normal. Mastoid air cells and visualized portions of the paranasal sinuses are clear. No acute bony findings. IMPRESSION: Negative non-contrast CT head examination. No significant change from comparison.
--- NOTE | 2018-07-03 19:30 | EDPHYS ---
Physician Documentation [facility] Name: Lisy Betts Age: 68 yrs Sex: Female : 1950 Arrival Date: 07/03/2018 Time: 16:27 Bed 28 Private MD: ED Physician Yoan Yousif HPI: 07/03 16:57 This 68 yrs old Female presents to ER via EMS with complaints of Chest Pain. snw 16:57 Pt was going to Dr. Hamm in follow up from ED visit 2 days ago. She was seen in ED for snw painful lymphadenopathy. W/u essentially unchanged for pt. Today on arrival to Dr. Hamm's office pt states she was dizzy, unable to speak for a few seconds, generally tired and weak, with some chest heaviness. Dr. Hamm sent pt to ED via EMS. Pt states this is not the first time she has had these symptoms. They recur about every two weeks. A\T\O x 3. . Onset: The symptoms/episode began/occurred suddenly. Severity of symptoms: At their worst the symptoms were moderate in the emergency department the symptoms have improved. The patient has experienced similar episodes in the past. The patient has been recently seen by a physician: The patient has been recently seen at the [facility] Emergency Department, this week, for similar complaints. Historical: - Allergies: 16:30 ceftriaxone; la1 16:30 PENICILLINS; la1 16:30 Prednisone; la1 - PMHx: 16:30 CLL; Pulmonary Embolism; UTI; la1 - Immunization history:: Adult Immunizations up to date. - Social history:: Smoking status: unknown. - Ebola Screening: : No symptoms or risks identified at this time. ROS: 17:00 Eyes: Negative for injury, pain, redness, and discharge, ENT: Negative for injury, snw pain, and discharge, Neck: Negative for injury, pain, and swelling. 17:00 Abdomen/GI: Negative for abdominal pain, nausea, vomiting, diarrhea, and constipation, Back: Negative for injury and pain, : Negative for injury, bleeding, discharge, and swelling, MS/Extremity: Negative for injury and deformity, Skin: Negative for injury, rash, and discoloration. 17:00 Constitutional: Positive for fatigue, malaise. 17:00 Cardiovascular: Positive for palpitations. 17:00 Respiratory: Positive for dyspnea on exertion. 17:00 Neuro: Positive for dizziness. Exam: 17:01 Head/Face: Normocephalic, atraumatic. Eyes: Pupils equal round and reactive to light, snw extra-ocular motions intact. Lids and lashes normal. Conjunctiva and sclera are non-icteric and not injected. Cornea within normal limits. Periorbital areas with no swelling, redness, or edema. ENT: Nares patent. No nasal discharge, no septal abnormalities noted. Tympanic membranes are normal and external auditory canals are clear. Oropharynx with no redness, swelling, or masses, exudates, or evidence of obstruction, uvula midline. Mucous membranes moist. Neck: Trachea midline, no thyromegaly or masses palpated, and no cervical lymphadenopathy. Supple, full range of motion without nuchal rigidity, or vertebral point tenderness. No Meningismus. Chest/axilla: Normal chest wall appearance and motion. Nontender with no deformity. No lesions are appreciated. 17:01 Respiratory: Lungs have equal breath sounds bilaterally, clear to auscultation and percussion. No rales, rhonchi or wheezes noted. No increased work of breathing, no retractions or nasal flaring. Abdomen/GI: Soft, non-tender, with normal bowel sounds. No distension or tympany. No guarding or rebound. No evidence of tenderness throughout. Back: No spinal tenderness. No costovertebral tenderness. Full range of motion. Skin: Warm, dry with normal turgor. Normal color with no rashes, no lesions, and no evidence of cellulitis. MS/ Extremity: Pulses equal, no cyanosis. Neurovascular intact. Full, normal range of motion. Neuro: Awake and alert, GCS 15, oriented to person, place, time, and situation. Cranial nerves II-XII grossly intact. Motor strength 5/5 in all extremities. Sensory grossly intact. Cerebellar exam normal. Normal gait. 17:01 Constitutional: The patient appears alert, awake, anxious. 17:01 Cardiovascular: Rate: bradycardic, Rhythm: regular, Heart sounds: normal. Vital Signs: 16:37 BP 166 / 65; Pulse 59; Resp 18; Temp 98(O); Pulse Ox 100% on R/A; Weight 92.53 kg; mg2 Height 5 ft. 3 in. (160.02 cm); Pain 0/10; 17:24 BP 170 / 93; Pulse 57; Resp 16; Pulse Ox 98% on R/A; la1 18:40 BP 146 / 61; Pulse 58; Resp 18; Pulse Ox 100% on R/A; Pain 0/10; mg2 19:42 BP 126 / 66; Pulse 59; Resp 18; Pulse Ox 100% on R/A; Pain 0/10; mg2 16:37 Body Mass Index 36.14 (92.53 kg, 160.02 cm) mg2 MDM: 16:48 Patient medically screened. snw 19:27 Data reviewed: vital signs, nurses notes. Data interpreted: Pulse oximetry: on room air snw is 100 %. Interpretation: normal. Counseling: I had a detailed discussion with the patient and/or guardian regarding: the historical points, exam findings, and any diagnostic results supporting the discharge/admit diagnosis, the presence of at least one elevated blood pressure reading (>120/80) during this emergency department visit, lab results, the need for outpatient follow up, to return to the emergency department if symptoms worsen or persist or if there are any questions or concerns that arise at home. Special discussion: Based on the patient's history, exam, and Dx evaluation, there is no indication for emergent intervention or inpatient Tx. It is understood by the patient/guardian that if the Sx's persist or worsen they need to return immediately for re-evaluation. I have referred the patient to see his PCP for further evaluation of high blood pressure. Based on the history and exam findings, there is no indication for further emergent testing or inpatient evaluation. I discussed with the patient/guardian the need to see the case manager specialist/oncologist for further evaluation of the symptoms. I discussed with the patient/guardian the need to see the primary care provider for further evaluation of the symptoms. 19:27 Response to treatment: the patient's symptoms have mildly improved after treatment, the w patient's condition has returned to base line, and as a result, I will discharge patient. 07/03 16:51 Order name: Troponin (emerg Dept Use Only); Complete Time: 17:46 snw 07/03 16:57 Order name: Hemoglobin; Complete Time: 17:48 snw 07/03 16:51 Order name: EKG; Complete Time: 16:51 snw 07/03 16:51 Order name: EKG - Nurse/Tech; Complete Time: 17:02 snw 07/03 16:57 Order name: CT Head Brain wo Cont; Complete Time: 17:55 snw 07/03 16:57 Order name: Hematocrit; Complete Time: 17:48 snw 07/03 18:07 Order name: Misc. Order: please ambulate pt in hallway; Complete Time: 18:38 snw Administered Medications: No medications were administered Disposition: 07/03/18 19:29 Discharged to Home. Impression: Malaise and fatigue, Anemia, unspecified. - Condition is Stable. - Discharge Instructions: Anemia, Nonspecific, Hypertension, Weakness, Fatigue. - Medication Reconciliation Form, Thank You Letter, Antibiotic Education, Prescription Opioid Use form. - Follow up: Private Physician; When: 1 - 2 days; Reason: Recheck today's complaints, Continuance of care, Re-evaluation by your physician. Follow up: Emergency Department; When: As needed; Reason: Worsening of condition. - Problem is an acute exacerbation. - Symptoms are unchanged. Addendum: 07/07/2018 17:19 Co-signature as Attending Physician, Yoan Yousif MD. g s Signatures: Dispatcher [employer] EDMS Taylor Cardenas, GARMENT MANUFACTURING SUPERVISOR-C GARMENT MANUFACTURING SUPERVISOR-Csnw Hernandez Mcdaniel RN RN la1 Yoan Yousif MD MD Andres Baumann RN RN mg2 Corrections: (The following items were deleted from the chart) 07/03 20:02 19:29 07/03/2018 19:29 Discharged to Home. Impression: Malaise and fatigue; Anemia, mg2 unspecified. Condition is Stable. Forms are Medication Reconciliation Form, Thank You Letter, Antibiotic Education, Prescription Opioid Use. Follow up: Private Physician; When: 1 - 2 days; Reason: Recheck today's complaints, Continuance of care, Re-evaluation by your physician. Follow up: Emergency Department; When: As needed; Reason: Worsening of condition. Problem is an acute exacerbation. Symptoms are unchanged. snw
--- NOTE | 2018-07-03 19:30 | ER ---
Nurse's Notes [facility] Name: Lisy Betts Age: 68 yrs Sex: Female : 1950 Arrival Date: 07/03/2018 Time: 16:27 Bed 28 Private MD: Diagnosis: Malaise and fatigue;Anemia, unspecified Presentation: 07/03 16:28 Presenting complaint: EMS states: She was at her doctors office for follow up from ER la1 visit and she began feeling faint and having chest pain, The pain has since gotten much better. Pt states she feels a little pressure in her chest. Transition of care: patient was not received from another setting of care. Onset of symptoms was July 03, 2018. Risk Assessment: Do you want to hurt yourself or someone else? Patient reports no desire to harm self or others. Initial Sepsis Screen: Does the patient meet any 2 criteria? No. Patient's initial sepsis screen is negative. Does the patient have a suspected source of infection? No. Patient's initial sepsis screen is negative. Care prior to arrival: None. 16:28 Method Of Arrival: EMS: [facility] la1 16:28 Acuity: ARNOLD 3 la1 Historical: - Allergies: 16:30 ceftriaxone; la1 16:30 PENICILLINS; la1 16:30 Prednisone; la1 - PMHx: 16:30 CLL; Pulmonary Embolism; UTI; la1 - Immunization history:: Adult Immunizations up to date. - Social history:: Smoking status: unknown. - Ebola Screening: : No symptoms or risks identified at this time. Screenin:39 Abuse screen: Denies threats or abuse. Denies injuries from another. Nutritional mg2 screening: No deficits noted. Tuberculosis screening: No symptoms or risk factors identified. Fall Risk IV access (20 points). Assessment: 16:39 General: Appears in no apparent distress. comfortable, Behavior is calm, cooperative. mg2 Pain: Denies pain. Pain does not radiate. Neuro: Level of Consciousness is awake, alert, obeys commands, Oriented to person, place, time. Cardiovascular: Capillary refill < 3 seconds Patient's skin is warm and dry. Respiratory: Airway is patent Respiratory effort is even, unlabored, Respiratory pattern is regular, symmetrical. GI: No signs and/or symptoms were reported involving the gastrointestinal system. : No signs and/or symptoms were reported regarding the genitourinary system. EENT: No signs and/or symptoms were reported regarding the EENT system. Derm: Skin is intact, Skin is pale. Musculoskeletal: No signs and/or symptoms reported regarding the musculoskeletal system. 17:00 Pain: Pain began gradually, today. mg2 18:38 Reassessment: Patient appears in no apparent distress at this time. patient able to mg2 ambulate but with assistance. she is a bit dizzy. 19:44 Reassessment: Patient appears in no apparent distress at this time. Patient and/or mg2 family updated on plan of care and expected duration. Pain level reassessed. Patient is alert, oriented x 3, equal unlabored respirations, skin warm/dry/pink. Vital Signs: 16:37 BP 166 / 65; Pulse 59; Resp 18; Temp 98(O); Pulse Ox 100% on R/A; Weight 92.53 kg; mg2 Height 5 ft. 3 in. (160.02 cm); Pain 0/10; 17:24 BP 170 / 93; Pulse 57; Resp 16; Pulse Ox 98% on R/A; la1 18:40 BP 146 / 61; Pulse 58; Resp 18; Pulse Ox 100% on R/A; Pain 0/10; mg2 19:42 BP 126 / 66; Pulse 59; Resp 18; Pulse Ox 100% on R/A; Pain 0/10; mg2 16:37 Body Mass Index 36.14 (92.53 kg, 160.02 cm) mg2 ED Course: 16:27 Patient arrived in ED. la1 16:29 Triage completed. la1 16:29 Arm band placed on left wrist. EKG completed in triage. Results shown to MD. la1 16:38 No provider procedures requiring assistance completed. Maintain EMS IV. Dressing mg2 intact. Good blood return noted. Site clean \T\ dry. Gauge \T\ site: 20\T\ lAC. Patient maintains SpO2 saturation greater than 95% on room air. 16:41 Patient has correct armband on for positive identification. Pulse ox on. NIBP on. mg2 16:42 Taylor Cardenas FNP-C is PHCP. snw 16:42 Yoan Yousif MD is Attending Physician. snw 17:[address] nj 17:42 CT Head Brain wo Cont In Process Unspecified. EDMS 19:44 IV discontinued, intact, bleeding controlled, No redness/swelling at site. Pressure mg2 dressing applied. Administered Medications: No medications were administered Outcome: 19:29 Discharge ordered by . stef 19:44 Discharged to home ambulatory. mg2 19:44 Condition: stable 19:44 Discharge instructions given to patient, Instructed on discharge instructions, follow up and referral plans. Demonstrated understanding of instructions, follow-up care. 20:02 Patient left the ED. mg2 Signatures: Dispatcher [employer] EDRI Taylor Cardenas FNP-C QUALITY TESTER-Hernandez Voss, RN RN la1 Vin Navarrete Michele, RN RN mg2 Corrections: (The following items were deleted from the chart) 16:46 16:37 BP 166 / 65; Pulse 59bpm; Resp 18bpm; Pulse Ox 100% RA; 92.53 kg; Height 5 ft. 3 mg2 in.; BMI: 36.1; Pain 0/10; mg2 18:56 18:40 Pulse 58bpm; Resp 18bpm; Pulse Ox 100% RA; Pain 0/10; mg2 mg2 19:44 18:39 Pain: Pain began mg2 mg2
[2018-07-03 20:09] VITALS: TEMP 98
[2018-07-03 20:11] VITALS: O2SAT 100
[2018-07-03 20:12] VITALS: BP 126/66
--- NOTE | 2018-07-04 09:49 | EKG ---
Test Date: 2018-07-03 Test Time: 16:31:49 Statement Clerks Manager: BALBIR MEASUREMENT RESULTS: Intervals: Rate: 57 [place]: 156 QRSD: 76 QT: 424 QTc: 412 [place]: P: 52 [place]: 156 QRS: 14 T: 47 INTERPRETIVE STATEMENTS: Sinus bradycardia Abnormal ECG Compared to ECG 07/01/2018 15:55:37 Sinus rhythm no longer present Electronically Signed On 07-04-18 09:48:29 CDT by Stevan Olivia
== END 2018-07-03 20:02 | disposition home or self-care (01) ==
LOC: ER 16:26
DX: D64.9 Anemia, unspecified (principal); R53.83 Other fatigue; Z88.0 Allergy status to penicillin; Z88.8 Allergy status to other drugs, medicaments and biological substances; Z85.6 Personal history of leukemia
CPT/HCPCS: 36415; 70450; 84484; 85014; 85018; 93005; 99285

== ENCOUNTER 2018-07-07 23:45 | Inpatient (IN) | payer OTHER ==
[2018-07-08 01:13] LABS: Urine Blood NEGATIVE (NEG); Urine Glucose NEGATIVE (NEG); Urine Protein NEGATIVE (NEG); Urine Specific Gravity <1.005 (1.005-1.030); Urine pH 6.5 (5.0-7.0)
--- NOTE | 2018-07-08 01:14 | ER ---
Nurse's Notes [facility] Name: Lisy Betts Age: 68 yrs Sex: Female : 1950 Arrival Date: 07/07/2018 Time: 23:46 Bed 6 Private MD: Diagnosis: Abdominal tenderness;Hematemesis;Gastrointestinal hemorrhage, unspecified;Anemia, unspecified;Elevated white blood cell count-CLL;Thrombocytopenia, unspecified-CLL Presentation: 07/07 23:55 Presenting complaint: Patient states: that that she is having left upper abd pain and fc is vomiting blood. Started at approx 1600. Transition of care: patient was not received from another setting of care. Onset of symptoms was July 07, 2018 at 16:00. Risk Assessment: Do you want to hurt yourself or someone else? Patient reports no desire to harm self or others. Initial Sepsis Screen: Does the patient meet any 2 criteria? No. Patient's initial sepsis screen is negative. Does the patient have a suspected source of infection? No. Patient's initial sepsis screen is negative. Care prior to arrival: None. 23:55 Method Of Arrival: Ambulatory 23:55 Acuity: ARNOLD 3 fc Triage Assessment: 23:55 General: Appears uncomfortable, obese, Behavior is calm, cooperative, appropriate for age. Pain: Complains of pain in left upper quadrant Pain currently is 5 out of 10 on a pain scale. Quality of pain is described as aching, Pain began gradually, Is continuous. EENT: No deficits noted. Neuro: Level of Consciousness is awake, alert, obeys commands, Oriented to person, place, time, situation. Cardiovascular: No deficits noted. Respiratory: No deficits noted. GI: Abdomen is non-distended, Bowel sounds present X 4 quads. Abd is soft Abdomen is tender to palpation in right upper quadrant and left upper quadrant Reports upper abdominal pain, vomiting. : No deficits noted. Derm: Skin is pink, warm \T\ dry. Musculoskeletal: Capillary refill < 3 seconds. Historical: - Allergies: 07/08 00:32 Prednisone; fc 00:32 PENICILLINS; fc 00:32 ceftriaxone; fc - Home Meds: 00:32 Imbruvica 140 mg oral cap 2 caps once daily [Active]; Prilosec 40 mg Oral cpDR 1 cap fc once daily [Active]; multivitamin oral tab daily [Active]; Vitamin D Oral daily [Active]; - PMHx: 00:32 CLL; Pulmonary Embolism; UTI; Anemia; fc - PSHx: 00:32 Hysterectomy; Hernia repair; ankle surg; Lumpectomy; fc - Immunization history:: Last tetanus immunization: unknown. - Social history:: Smoking status: Patient/guardian denies using tobacco. - Ebola Screening: : Patient negative for fever greater than or equal to 101.5 degrees Fahrenheit, and additional compatible Ebola Virus Disease symptoms Patient denies exposure to infectious person Patient denies travel to an Ebola-affected area in the 21 days before illness onset. - Family history:: not pertinent. Screenin/29 23:55 Abuse screen: Denies threats or abuse. Nutritional screening: No deficits noted. fc Tuberculosis screening: No symptoms or risk factors identified. Fall Risk None identified. Assessment: 07/08 00:28 Reassessment: No changes from previously documented assessment. Patient and/or family fc updated on plan of care and expected duration. Pain level reassessed. Patient is alert, oriented x 3, equal unlabored respirations, skin warm/dry/pink. see triage assessment. 01:30 Reassessment: No changes from previously documented assessment. Patient and/or family fc updated on plan of care and expected duration. Pain level reassessed. Patient is alert, oriented x 3, equal unlabored respirations, skin warm/dry/pink. Pt complained of pain and this was discussed with Dr Osborne. Pt to be given medication as ordered. 01:59 GI: Abdomen is non-distended, Bowel sounds present X 4 quads. Reports upper abdominal fc pain, nausea. 02:39 Reassessment: Pt complained of her pain coming back. Discussed with Dr Osborne and pt fc to have Fentanyl. 03:25 Reassessment: No changes from previously documented assessment. Patient and/or family fc updated on plan of care and expected duration. Pain level reassessed. Patient is alert, oriented x 3, equal unlabored respirations, skin warm/dry/pink. Pt is pending CT Scan. 03:59 Reassessment: Pt gone to CT Scan via stretcher. is aware that pt continues to have fc pain. 04:42 Reassessment: Pt has returned from Ct and is complaining of increased pain to left fc chest and left upper abd. Dr Osborne at bedside. 05:05 Reassessment: Pt states that the pain continues. Discussed with Dr Osborne. Pt to get fc EKG and additional dose of Dilaudid that was ordered. 05:24 Reassessment: Pt going to Ct Scan for CT of Chest. fc 05:50 Reassessment: Patient and/or family updated on plan of care and expected duration. Pain fc level reassessed. Patient is alert, oriented x 3, equal unlabored respirations, skin warm/dry/pink. Pt has returned from CT. 06:00 Reassessment: Pt feel asleep and was snoring. Sats dropped. Placed on O2 at 2 liters fc per nasal cannula. 06:25 Reassessment: No changes from previously documented assessment. Patient and/or family fc updated on plan of care and expected duration. Pain level reassessed. Patient is alert, oriented x 3, equal unlabored respirations, skin warm/dry/pink. Test results back. Pt is now just pending admission. 07:00 Reassessment: Pt states that she is having increased pain. Discussed with Dr Osborne fc and pt to get Dilaudid and Zofran. 07:11 Reassessment: No changes from previously documented assessment. Patient and/or family fc updated on plan of care and expected duration. Pain level reassessed. Patient is alert, oriented x 3, equal unlabored respirations, skin warm/dry/pink. Dr Grimaldo at bedside to discuss admission. 07:22 Reassessment: Patient and/or family updated on plan of care and expected duration. Pain fc level reassessed. Patient is alert, oriented x 3, equal unlabored respirations, skin warm/dry/pink. Pt is now pending admission Patient states feeling better. Patient states symptoms have improved. Vital Signs: 07/07 23:55 BP 137 / 62; Pulse 70; Resp 18; Temp 98(O); Pulse Ox 96% on R/A; Weight 92.99 kg (R); fc Height 5 ft. 3 in. (160.02 cm) (R); Pain 5/10; 07/08 01:30 BP 129 / 55; Pulse 62; Resp 20; Pulse Ox 98% on R/A; Pain 6/10; fc 02:25 BP 125 / 59; Pulse 56; Resp 18; Pulse Ox 98% on R/A; Pain 3/10; fc 03:24 BP 107 / 53; Pulse 54; Resp 18; Pulse Ox 96% on R/A; fc 04:43 BP 140 / 86; Pulse 82; Resp 20; Pulse Ox 96% on R/A; Pain 8/10; fc 05:10 BP 124 / 62; Pulse 65; Resp 20; Pulse Ox 96% ; Pain 10/10; fc 05:51 BP 116 / 64; Pulse 58; Resp 20; Pulse Ox 96% ; fc 06:25 BP 109 / 66; Pulse 63; Resp 20; Temp 98.2; Pulse Ox 96% on 2 lpm NC; Pain 6/10; fc 07:12 BP 103 / 66; Pulse 65; Resp 20; Pulse Ox 99% on 2 lpm NC; Pain 8/10; fc 07/07 23:55 Body Mass Index 36.31 (92.99 kg, 160.02 cm) ED Course: 07/07 23:46 Patient arrived in ED. ag3 23:55 Arm band placed on Patient placed in an exam room, on a stretcher. fc 23:55 Patient has correct armband on for positive identification. Placed in gown. Bed in low fc position. Call light in reach. Pulse ox on. NIBP on. 23:55 No provider procedures requiring assistance completed. 07/08 00:09 Javed Osborne MD is Attending Physician. nathaniel 00:25 Triage completed. 00:38 XRAY Chest (1 view) In Process Unspecified. EDMS 01:00 Initial lab(s) drawn, by me. Inserted saline lock: 20 gauge in right antecubital area, cc using aseptic technique. Blood collected. 01:11 Ramses Grimaldo MD is Hospitalizing Provider. nathaniel 02:42 Manual Differential Sent. fc 07:39 Patient admitted, IV remains in place. intact, No redness/swelling at site. sg Administered Medications: 01:34 Drug: NS 0.9% 1000 ml Route: IV; Rate: 1 bolus; Site: right antecubital; 02:45 Follow up: Response: No adverse reaction; No change in condition; IV Status: Completed infusion; IV Intake: 1000ml 01:34 Drug: ProTONIX 40 mg Route: IVP; Site: right antecubital; 02:02 Follow up: Response: No adverse reaction; No change in condition 01:34 Drug: Zofran 4 mg Route: IVP; Site: right antecubital; fc 02:02 Follow up: Response: No adverse reaction; Nausea is decreased fc 01:34 Drug: ProTONIX 40 mg Route: IVP; Site: right antecubital; fc 02:01 Follow up: Response: No adverse reaction; No change in condition fc 01:44 Drug: fentaNYL (PF) 50 mcg Route: IVP; Site: right antecubital; fc 02:01 Follow up: Response: Pain is decreased fc 02:41 Drug: fentaNYL (PF) 50 mcg Route: IVP; Site: right antecubital; fc 03:44 Follow up: Response: No adverse reaction; Pain is unchanged, physician notified fc 04:51 Drug: Dilaudid 0.5 mg Route: IVP; Site: right antecubital; fc 05:09 Follow up: Response: No adverse reaction; Pain is unchanged, physician notified fc 05:09 Drug: Dilaudid 0.5 mg Route: IVP; Site: right antecubital; fc 05:50 Follow up: Response: No adverse reaction; Pain is decreased fc 07:08 Drug: Zofran 4 mg Route: IVP; Site: right antecubital; fc 07:21 Follow up: Response: No adverse reaction; Nausea is decreased fc 07:10 Drug: Dilaudid 1 mg Route: IVP; Site: right antecubital; fc 07:21 Follow up: Response: No adverse reaction; Pain is decreased fc Intake: 02:45 IV: 1000ml; Total: 1000ml. fc Outcome: 01:13 Decision to Hospitalize by Provider. nathaniel 07:39 Admitted to Med/surg accompanied by tech, via stretcher, room 214, with oxygen, with sg chart, Report called to Jeimy SOUZA 07:39 Condition: stable 07:39 Instructed on the need for admit, safety practices, Demonstrated understanding of instructions, follow-up care. 07:40 Patient left the ED. sg Signatures: Dispatcher [employer] EDMS Catracho Rios RN RN sg Anderson, Corey, MD MD cha Chretien, Felicia, RN RN Catrachita Andrews Alice ag3 Corrections: (The following items were deleted from the chart) 02:01 01:30 Reassessment: No changes from previously documented assessment. Patient and/or fc family updated on plan of care and expected duration. Pain level reassessed. Patient is alert, oriented x 3, equal unlabored respirations, skin warm/dry/pink. Pt complained of pain and this was discussed with Dr Osborne. Pt given medication as ordered. fc
--- NOTE | 2018-07-08 01:14 | EDPHYS ---
Physician Documentation [facility] Name: Lisy Betts Age: 68 yrs Sex: Female : 1950 Arrival Date: 07/07/2018 Time: 23:46 Bed 6 Private MD: ED Physician Javed Osborne HPI: 07/08 01:05 This 68 yrs old Female presents to ER via Ambulatory with complaints of nathaniel Vomiting. 01:05 The patient presents to the emergency department with nausea, vomiting, that is nathaniel intermittent, blood noted in vomit. Onset: The symptoms/episode began/occurred just prior to arrival, yesterday. Possible causes: unknown. The symptoms are aggravated by. Associated signs and symptoms: The patient has no apparent associated signs or symptoms. Severity of symptoms: At their worst the symptoms were mild in the emergency department the symptoms are unchanged. The patient has not experienced similar symptoms in the past, but friend has similar symptoms. Historical: - Allergies: 00:32 Prednisone; fc 00:32 PENICILLINS; fc 00:32 ceftriaxone; fc - Home Meds: 00:32 Imbruvica 140 mg oral cap 2 caps once daily [Active]; Prilosec 40 mg Oral cpDR 1 cap fc once daily [Active]; multivitamin oral tab daily [Active]; Vitamin D Oral daily [Active]; - PMHx: 00:32 CLL; Pulmonary Embolism; UTI; Anemia; fc - PSHx: 00:32 Hysterectomy; Hernia repair; ankle surg; Lumpectomy; fc - Immunization history:: Last tetanus immunization: unknown. - Social history:: Smoking status: Patient/guardian denies using tobacco. - Ebola Screening: : Patient negative for fever greater than or equal to 101.5 degrees Fahrenheit, and additional compatible Ebola Virus Disease symptoms Patient denies exposure to infectious person Patient denies travel to an Ebola-affected area in the 21 days before illness onset. - Family history:: not pertinent. ROS: 01:05 Constitutional: Negative for fever, chills, and weight loss, Eyes: Negative for injury, nathaniel pain, redness, and discharge, ENT: Negative for injury, pain, and discharge, Neck: Negative for injury, pain, and swelling, Cardiovascular: Negative for chest pain, palpitations, and edema, Respiratory: Negative for shortness of breath, cough, wheezing, and pleuritic chest pain, Back: Negative for injury and pain, : Negative for injury, bleeding, discharge, and swelling, MS/Extremity: Negative for injury and deformity, Skin: Negative for injury, rash, and discoloration, Neuro: Negative for headache, weakness, numbness, tingling, and seizure, Psych: Negative for depression, anxiety, suicide ideation, homicidal ideation, and hallucinations, Allergy/Immunology: Negative for hives, rash, and allergies, Endocrine: Negative for neck swelling, polydipsia, polyuria, polyphagia, and marked weight changes, Hematologic/Lymphatic: Negative for swollen nodes, abnormal bleeding, and unusual bruising. 01:05 Abdomen/GI: Positive for abdominal pain, nausea and vomiting, nausea, vomiting, hematemesis, of the left upper quadrant. Exam: 01:05 Constitutional: This is a well developed, well nourished patient who is awake, alert, nathaniel and in no acute distress. Head/Face: Normocephalic, atraumatic. Eyes: Pupils equal round and reactive to light, extra-ocular motions intact. Lids and lashes normal. Conjunctiva and sclera are non-icteric and not injected. Cornea within normal limits. Periorbital areas with no swelling, redness, or edema. ENT: Nares patent. No nasal discharge, no septal abnormalities noted. Tympanic membranes are normal and external auditory canals are clear. Oropharynx with no redness, swelling, or masses, exudates, or evidence of obstruction, uvula midline. Mucous membranes moist. Neck: Trachea midline, no thyromegaly or masses palpated, and no cervical lymphadenopathy. Supple, full range of motion without nuchal rigidity, or vertebral point tenderness. No Meningismus. Chest/axilla: Normal chest wall appearance and motion. Nontender with no deformity. No lesions are appreciated. Cardiovascular: Regular rate and rhythm with a normal S1 and S2. No gallops, murmurs, or rubs. Normal PMI, no JVD. No pulse deficits. Respiratory: Lungs have equal breath sounds bilaterally, clear to auscultation and percussion. No rales, rhonchi or wheezes noted. No increased work of breathing, no retractions or nasal flaring. Back: No spinal tenderness. No costovertebral tenderness. Full range of motion. Female : Normal external genitalia. Skin: Warm, dry with normal turgor. Normal color with no rashes, no lesions, and no evidence of cellulitis. MS/ Extremity: Pulses equal, no cyanosis. Neurovascular intact. Full, normal range of motion. Neuro: Awake and alert, GCS 15, oriented to person, place, time, and situation. Cranial nerves II-XII grossly intact. Motor strength 5/5 in all extremities. Sensory grossly intact. Cerebellar exam normal. Normal gait. Psych: Awake, alert, with orientation to person, place and time. Behavior, mood, and affect are within normal limits. 01:05 Abdomen/GI: Inspection: abdomen appears normal, Bowel sounds: normal, Palpation: mild abdominal tenderness, in the epigastric area and left upper quadrant. 04:46 Back: Exam negative for acute changes. nathaniel 04:46 Musculoskeletal/extremity: Circulation is intact in all extremities. Sensation intact. Compartment Syndrome exam of affected extremity: is normal. DVT Exam: No signs of deep vein thrombosis. no pain, no swelling, no tenderness, negative Homans' sign noted on exam, no appreciated bluish discoloration, no erythema, no increased warmth. 04:46 Neuro: Exam negative for Orientation: is normal, appropriate for stated age, no acute changes, Mentation: is normal, appropriate for stated age, no acute changes, Memory: is normal, appropriate for stated age, no acute changes, Cranial nerves: grossly normal, is grossly normal based on the patient's age, no acute changes. 04:50 Musculoskeletal/extremity: DVT Exam: [facility] Vital Signs: 07/07 23:55 BP 137 / 62; Pulse 70; Resp 18; Temp 98(O); Pulse Ox 96% on R/A; Weight 92.99 kg (R); Height 5 ft. 3 in. (160.02 cm) (R); Pain 5/10; 07/08 01:30 BP 129 / 55; Pulse 62; Resp 20; Pulse Ox 98% on R/A; Pain 6/10; fc 02:25 BP 125 / 59; Pulse 56; Resp 18; Pulse Ox 98% on R/A; Pain 3/10; fc 03:24 BP 107 / 53; Pulse 54; Resp 18; Pulse Ox 96% on R/A; fc 04:43 BP 140 / 86; Pulse 82; Resp 20; Pulse Ox 96% on R/A; Pain 8/10; fc 05:10 BP 124 / 62; Pulse 65; Resp 20; Pulse Ox 96% ; Pain 10/10; 05:51 BP 116 / 64; Pulse 58; Resp 20; Pulse Ox 96% ; fc 06:25 BP 109 / 66; Pulse 63; Resp 20; Temp 98.2; Pulse Ox 96% on 2 lpm NC; Pain 6/10; 07:12 BP 103 / 66; Pulse 65; Resp 20; Pulse Ox 99% on 2 lpm NC; Pain 8/10; fc 07/07 23:55 Body Mass Index 36.31 (92.99 kg, 160.02 cm) MDM: 00:09 Patient medically screened. [facility] 01:09 Data reviewed: vital signs, nurses notes, lab test result(s), EKG, radiologic studies, [facility] CT scan, plain films. 07/08 00:11 Order name: Basic Metabolic Panel; Complete Time: 02:34 [facility] 07/08 00:11 Order name: CBC with Diff; Complete Time: 05:07 [facility] 07/08 00:11 Order name: LFT's; Complete Time: 02:34 [facility] 07/08 00:11 Order name: Magnesium; Complete Time: 02:34 [facility] 07/08 00:11 Order name: NT PRO-BNP; Complete Time: 02:34 [facility] 07/08 00:11 Order name: PT-INR; Complete Time: 02:34 [facility] 07/08 00:11 Order name: Troponin (emerg Dept Use Only); Complete Time: 02:34 [facility] 07/08 00:11 Order name: XRAY Chest (1 view) [facility] 07/08 00:11 Order name: Lipase; Complete Time: 02:34 [facility] 07/08 00:56 Order name: Urine Dipstick--Ancillary (enter results); Complete Time: 01:28 ms 07/08 01:10 Order name: CT Abd/Pelvis - W/Contrast [facility] 07/08 01:28 Order name: Manual Differential; Complete Time: 05:07 EDMS 07/08 01:29 Order name: Type And Screen [facility] 07/08 04:46 Order name: CT Chest Wo Con [facility] 07/08 00:11 Order name: EKG; Complete Time: 00:12 nathaniel 07/08 00:11 Order name: Cardiac monitoring; Complete Time: 00:54 nathaniel 07/08 01:21 Order name: CONS Physician Consult; Complete Time: 02:42 EDMT 07/08 01:21 Order name: NPO; Complete Time: 02:24 EDMT 07/08 04:49 Order name: EKG; Complete Time: 04:49 [facility] 07/08 05:07 Order name: VQ scan (Nuclear Medicine) [facility] 07/08 00:11 Order name: EKG - Nurse/Tech; Complete Time: 00:54 [facility] 07/08 00:11 Order name: IV Saline Lock; Complete Time: 01:08 [facility] 07/08 00:11 Order name: Labs collected and sent; Complete Time: 01: [facility] 07/08 00:11 Order name: O2 Per Protocol; Complete Time: 00:55 [facility] 07/08 00:11 Order name: O2 Sat Monitoring; Complete Time: 00:55 [facility] 07/08 04:49 Order name: EKG - Nurse/Tech; Complete Time: 05:09 [facility] Administered Medications: 01:34 Drug: NS 0.9% 1000 ml Route: IV; Rate: 1 bolus; Site: right antecubital; 02:45 Follow up: Response: No adverse reaction; No change in condition; IV Status: Completed infusion; IV Intake: 1000ml 01:34 Drug: ProTONIX 40 mg Route: IVP; Site: right antecubital; fc 02:02 Follow up: Response: No adverse reaction; No change in condition fc 01:34 Drug: Zofran 4 mg Route: IVP; Site: right antecubital; fc 02:02 Follow up: Response: No adverse reaction; Nausea is decreased fc 01:34 Drug: ProTONIX 40 mg Route: IVP; Site: right antecubital; fc 02:01 Follow up: Response: No adverse reaction; No change in condition fc 01:44 Drug: fentaNYL (PF) 50 mcg Route: IVP; Site: right antecubital; fc 02:01 Follow up: Response: Pain is decreased fc 02:41 Drug: fentaNYL (PF) 50 mcg Route: IVP; Site: right antecubital; fc 03:44 Follow up: Response: No adverse reaction; Pain is unchanged, physician notified fc 04:51 Drug: Dilaudid 0.5 mg Route: IVP; Site: right antecubital; fc 05:09 Follow up: Response: No adverse reaction; Pain is unchanged, physician notified fc 05:09 Drug: Dilaudid 0.5 mg Route: IVP; Site: right antecubital; fc 05:50 Follow up: Response: No adverse reaction; Pain is decreased fc 07:08 Drug: Zofran 4 mg Route: IVP; Site: right antecubital; fc 07:21 Follow up: Response: No adverse reaction; Nausea is decreased fc 07:10 Drug: Dilaudid 1 mg Route: IVP; Site: right antecubital; fc 07:21 Follow up: Response: No adverse reaction; Pain is decreased fc Disposition: 07/08/18 01:13 Hospitalization ordered by Ramses Grimaldo for Observation. Preliminary diagnosis are Abdominal tenderness, Hematemesis, Gastrointestinal hemorrhage, unspecified, Anemia, unspecified, Elevated white blood cell count - CLL, Thrombocytopenia, unspecified - CLL. - Bed requested for Telemetry/MedSurg (Inpatient). - Status is Observation. sg - Condition is Stable. - Problem is new. - Symptoms have improved. UTI on Admission? No Signatures: Dispatcher [employer] EDMS Anju Santos RN RN mw Gay, Steven, RN RN sg Anderson, Corey, MD MD cha Chretien, Felicia, RN RN fc Corrections: (The following items were deleted from the chart) :23 01:13 Hospitalization Ordered by Ramses Grimaldo MD for Observation. Preliminary diagnosis is Abdominal tenderness; Hematemesis; Gastrointestinal hemorrhage, unspecified. Bed requested for Telemetry/MedSurg (Inpatient). Status is Observation. Condition is Stable. Problem is new. Symptoms have improved. UTI on Admission? No. nathaniel 01:49 01:23 07/08/2018 01:13 Hospitalization Ordered by Ramses Grimaldo MD for Observation. nathaniel Preliminary diagnosis is Abdominal tenderness; Hematemesis; Gastrointestinal hemorrhage, unspecified. Bed requested for Telemetry/MedSurg (Inpatient). Status is Observation. Condition is Stable. Problem is new. Symptoms have improved. UTI on Admission? No. mukesh 07:40 01:49 07/08/2018 01:13 Hospitalization Ordered by Ramses Grimaldo MD for Observation. delvis Preliminary diagnosis is Abdominal tenderness; Hematemesis; Gastrointestinal hemorrhage, unspecified; Anemia, unspecified; Elevated white blood cell count - CLL; Thrombocytopenia, unspecified - CLL. Bed requested for Telemetry/MedSurg (Inpatient). Status is Observation. Condition is Stable. Problem is new. Symptoms have improved. UTI on Admission? No. nathaniel
[2018-07-08 01:22] LABS: Absolute Monocytes 0.5 K/uL (0.1-1.3); Absolute Neutrophil 0.6 K/uL (1.8-8.0); Eosinophils % 0.2 % (0-4.4); Hematocrit 23.2 % (36.0-45.0); Lymphocytes % 97.5 % (15.3-44.8); MCH 32.4 pg (27.0-35.0); MCV 96.3 fL (80-100); MPV 10.8 fL (7.6-11.3); Monocytes % 1.1 % (3.3-12.3); Protime INR 0.99; RBC Red Blood Cell Count 2.41 M/uL (3.86-4.86)
[2018-07-08] MEDS ORDERED: ONDANSETRON 4 MG/2 ML VIAL ONE ×2 (01:29→07:08)
[2018-07-08] MEDS ORDERED: NA CHLORIDE 0.9% 1,000 ML ONE (01:29)
[2018-07-08] MEDS ORDERED: PANTOPRAZOLE 40 MG INJ ONE ×2 (01:29)
[2018-07-08 01:42] LABS: ALT/SGPT 15 U/L (12-78); AST/SGOT 12 U/L (15-37); Albumin 3.2 g/dL (3.4-5.0); Alkaline Phosphatase 60 U/L (45-117); BUN Blood Urea Nitrogen 13 mg/dL (7-18); Bicarbonate 29 mmol/L (21-32); Bilirubin Direct < 0.1 mg/dL (0-0.2); Bilirubin Total 0.4 mg/dL (0.2-1.0); Glucose Level 107 mg/dL (74-106); Lipase 110 U/L (73-393); Magnesium 2.2 mg/dL (1.8-2.4); NT PRO-BNP 71 pg/mL (<125); Potassium 3.7 mmol/L (3.5-5.1); Protein, Total 6.5 g/dL (6.4-8.2); Sodium Level 143 mmol/L (136-145); Troponin (Emerg Dept Use Only) < 0.02 ng/mL (0.0-0.045)
[2018-07-08] MEDS ORDERED: FENTANYL CITR 100 MCG/2 ML ONE (01:48)
[2018-07-08] MEDS ORDERED: ACETAMINOPHEN 500 MG TAB PO PRN (03:00)
[2018-07-08] MEDS ORDERED: PANTOPRAZOLE INJ 80 MG in NA CHLORIDE 0.9% 250 ML IV SCH (03:00)
[2018-07-08] MEDS ORDERED: NA CHLORIDE 0.9% 250 ML IV SCH (03:00)
[2018-07-08] MEDS ORDERED: MORPHINE 2 MG/ML SYR IV PRN (03:00)
[2018-07-08] MEDS ORDERED: HYDROMORPHONE HCL 0.5 MG/0.5 ML INJ ONE ×2 (04:52→05:12)
[2018-07-08 04:55] LABS: Blood Morphology Comment NOT SEEN (NOT SEEN); Platelet Estimate DECR
--- NOTE | 2018-07-08 06:41 | EKG ---
Test Date: 2018-07-08 Test Time: 00:46:09 Nursing Associate: VLADIMIR MEASUREMENT RESULTS: Intervals: Rate: 66 SD: 148 QRSD: 76 QT: 402 QTc: 421 [place]: P: -9 SD: 148 QRS: 7 T: 66 INTERPRETIVE STATEMENTS: Normal sinus rhythm Possible Inferior infarct, age undetermined Abnormal ECG Compared to ECG 07/03/2018 16:31:49 Possible myocardial infarct finding now present Sinus bradycardia no longer present Electronically Signed On 07-08-18 06:41:01 CDT by Stevan Olivia
[2018-07-08] MEDS ORDERED: HYDROMORPHONE HCL 1 MG/ML INJ ONE (07:04)
[2018-07-08] MEDS ORDERED: IBRUTINIB 280 MG PO SCH (09:00)
--- NOTE | 2018-07-08 09:44 | P.HP ---
Certification for Inpatient Patient admitted to: Inpatient With expected LOS: >2 Midnights Patient will require the following post-hospital care: None Practitioner: I am a practitioner with admitting privileges, knowledge of patient current condition, hospital course, and medical plan of care. Services: Services provided to patient in accordance with Admission requirements found in Title 42 Section 412.3 of the Code of Federal Regulations Patient History Date of Service: 07/08/18 Reason for admission: Hematemesis/abdominal pain History of Present Illness: Patient is a 68-year-old female with a history of CLL who has been on Ibrutinib for treatment. She states the dose of her medication has to be lowered because of the anemia and thrombocytopenia. She has been having a lot issues with nausea and vomiting as well since being on the medication. She normally tries to eat very light but she was out yesterday and decided to get a subway sandwich. By the time she got home she started feeling sick and had an episode of intractable nausea and vomiting. She says she noticed blood in her vomit. She was feeling weak and was worried she was anemic so she came into the emergency room for further evaluation. In the emergency room she was slightly anemic as well as having significant thrombocytopenia. Her white count is less than 50,000. She was admitted to the hospital for treatment of a possible upper GI bleeding. GI has been consulted. Allergies ceftriaxone [From Rocephin] Allergy (Verified 07/08/18 03:14) Hives Penicillins Allergy (Verified 07/08/18 03:14) Hives prednisone Adverse Reaction (Verified 07/08/18 03:14) Shortness of breath Home Medications: Ibrutinib [Imbruvica] 280 mg PO DAILY 06/27/18 Omeprazole [Prilosec] 40 mg PO DAILY 06/27/18 traMADol HCL [Ultram] 50 mg PO Q6H PRN 06/27/18 - Past Medical/Surgical History Diabetic: No -: Chronic Lymphocytic Leukemia -: 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 -: PE -: GERD -: cyst removed from left breast -: left ankle surgery -: Hysterectomy 2018 -: Abdominal hernia repair with mesh placement - Family History Mother Medical History: Heart disease, Other (see notes) Notes: ALZ, [place] Father Medical History: Cancer Notes: Pancreatic CA - Social History Alcohol use: No CD- Drugs: No Caffeine use: Yes Review of Systems 10-point ROS is otherwise unremarkable Physical Examination - Vital Signs Temperature: 98.2 F Blood Pressure: 103/66 Pulse: 65 Respirations: 20 Pulse Ox (%): 98 - Physical Exam General: Alert, In no apparent distress, Oriented x3 HEENT: Atraumatic, PERRLA, Mucous membr. moist/pink, EOMI, Sclerae nonicteric Neck: Supple, 2+ carotid pulse no bruit, No LAD, Without JVD or thyroid abnormality Respiratory: Clear to auscultation bilaterally, Normal air movement Cardiovascular: Regular rate/rhythm, Normal S1 S2, No murmurs Gastrointestinal: Normal bowel sounds, Soft and benign, Non-distended, No tenderness Musculoskeletal: No clubbing, No swelling, No tenderness Integumentary: No rashes Neurological: Normal gait, Normal speech, Normal strength at 5/5 x4 extr, Normal tone, Sensation intact, Cranial nerves 3-12 intact, Normal affect Lymphatics: No axilla or inguinal lymphadenopathy - Studies Laboratory Data (last 24 hrs) 07/08/18 01:00: PT 11.7, INR 0.99 07/08/18 01:00: WBC 49.3 H* D, Hgb 7.8 L*, Hct 23.2 L, Plt Count 26 L* 07/08/18 01:00: Sodium 143, Potassium 3.7, BUN 13, Creatinine 0.70, Glucose 107 H, Magnesium 2.2, Total Bilirubin 0.4, AST 12 L, ALT 15, Alkaline Phosphatase 60 , Lipase 110 Assessment & Plan - Problems (Diagnosis) (1) Upper GI bleeding Current Visit: Yes Status: Acute (2) Hematemesis Current Visit: Yes Status: Acute (3) Abdominal pain Onset Date: 03/17/17 Current Visit: No Status: Acute (4) History of pulmonary embolism Current Visit: No Status: Acute (5) Intractable nausea and vomiting Onset Date: 03/17/17 Current Visit: No Status: Acute (6) Thrombocytopenia Onset Date: 06/04/18 Current Visit: No Status: Acute (7) Weakness generalized Onset Date: 06/27/18 Current Visit: No Status: Acute (8) CLL (chronic lymphocytic leukemia) Onset Date: 01/23/18 Current Visit: No Status: Chronic (9) Chest pain Onset Date: 03/22/18 Current Visit: No Status: Resolved Qualifiers: (10) Symptomatic anemia Onset Date: 05/11/18 Current Visit: No Status: Resolved (11) Acute blood loss anemia Current Visit: Yes Status: Acute (12) Thrombocytopenia Current Visit: Yes Status: Acute - Plan Plan: 1. Continue with IV hydration and PPI drip 2. Continue with IV antibiotics 3. Continue with pain control 4. NPO 5. GI consultation 6. Serial H&H, and we will monitor LFTs and lipase along with electrolytes. 7. transfuse 1 bag of platelets and 1 unit of packed red blood cells 8. GI and DVT prophylaxis Discharge Plan: Home Plan to discharge in: Greater than 2 days - Advance Directives Does patient have a Living Will: No Does patient have a Durable POA for Healthcare: No - Code Status/Comfort Care Code Status Assessed: Yes Code Status: Full Code Critical Care: No Time Spent Managing PTS Care (In Minutes): 50
[2018-07-08 09:50] LABS: Hematocrit 21.9 % (36.0-45.0)
[2018-07-08 09:54] LABS: RBC Red Blood Cell Count 2.24 M/uL (3.86-4.86)
[2018-07-08] MEDS ORDERED: DIPHENHYDRAMINE 50 MG/ML VIAL IV ONE (09:58)
[2018-07-08] MEDS ORDERED: NA CHLORIDE 0.9% 250 ML ONE (10:20)
[2018-07-08] MEDS: MORPHINE 4 MG/ML SYR IV PRN ×3 (10:44→22:43)
[2018-07-08] MEDS ORDERED: DIPHENHYDRAMINE 25 MG TAB/CAP PO SCH (11:00)
[2018-07-08 11:08] LABS: Folic Acid, (Folate) > 20.0 ng/mL (3.1-17.5)
--- NOTE | 2018-07-08 12:07 | RAD REPORT ---
EXAM DESCRIPTION: RAD - Chest Single View - 07/08/2018 12:38 am CLINICAL HISTORY: COUGH Chest pain. COMPARISON: Chest Single View dated 07/01/2018; Chest Single View dated 06/26/2018; Abdomen 1 View ([facility]) dated 06/03/2018; Chest Single View dated 05/28/2018 FINDINGS: Portable technique limits examination quality. The lungs are grossly clear. The heart is normal in size. No displaced fractures. IMPRESSION: No acute intrathoracic process suspected.
--- NOTE | 2018-07-08 12:58 | P.PN ---
Subjective Date of Service: 07/08/18 Chief Complaint: Hematemesis/abdominal pain feels better Physical Examination - Vital Signs Temperature: 98.2 F Blood Pressure: 103/66 Pulse: 65 Respirations: 20 Pulse Ox (%): 98 - Physical Exam General: Alert, In no apparent distress HEENT: Atraumatic, PERRLA, EOMI Neck: Supple, JVD not distended Respiratory: Clear to auscultation bilaterally, Normal air movement Cardiovascular: Regular rate/rhythm, Normal S1 S2 Gastrointestinal: Normal bowel sounds, No tenderness Musculoskeletal: No tenderness Integumentary: No rashes Neurological: Normal speech, Normal tone, Normal affect Lymphatics: No axilla or inguinal lymphadenopathy - Studies Laboratory Data (last 24 hrs) 07/08/18 01:00: PT 11.7, INR 0.99 07/08/18 01:00: WBC 49.3 H* D, Hgb 7.8 L*, Hct 23.2 L, Plt Count 26 L* 07/08/18 01:00: Sodium 143, Potassium 3.7, BUN 13, Creatinine 0.70, Glucose 107 H, Magnesium 2.2, Total Bilirubin 0.4, AST 12 L, ALT 15, Alkaline Phosphatase 60 , Lipase 110 Medications List Reviewed: Yes Assessment And Plan - Current Problems (Diagnosis) (1) Hematemesis Current Visit: Yes Status: Acute Qualifiers: Nausea presence: with nausea Qualified Code(s): K92.0 - Hematemesis (2) Thrombocytopenia Current Visit: Yes Status: Acute (3) Upper GI bleeding Current Visit: Yes Status: Acute (4) History of pulmonary embolism Current Visit: No Status: Acute (5) CLL (chronic lymphocytic leukemia) Onset Date: 01/23/18 Current Visit: No Status: Chronic (6) GERD (gastroesophageal reflux disease) Current Visit: Yes Status: Suspected Qualifiers: Esophagitis presence: with esophagitis Qualified Code(s): K21.0 - Gastro- esophageal reflux disease with esophagitis - Plan --HOLD Imbruca(GI Bleeding) --Transfuse --NPO --EGD today --PPI
--- NOTE | 2018-07-08 13:39 | RAD REPORT ---
EXAM DESCRIPTION: CTAbdomen Pelvis W Contrast - 07/08/2018 7:33 am CLINICAL HISTORY: Abdominal pain. ABD PAIN COMPARISON: Abdomen Pelvis W Contrast dated 01/22/2018; Abdomen Pelvis W Contrast dated 07/13/2017 ; Abdomen Pelvis W Contrast dated 03/16/2017 TECHNIQUE: Biphasic CT imaging of the abdomen and pelvis was performed with 100 ml non-ionic IV cont rast. All CT scans are performed using dose optimization technique as appropriate and may include automated exposure control or mA/KV adjustment according to patient size. FINDINGS: Poorly defined airspace opacities in both lung bases posteriorly is in with trace left ple ural fluid, likely represents infection. The liver demonstrates no focal mass or biliary dilatation. Spleen is mildly enlarged. Pancreas, adre nal glands are normal. Both kidneys show mild hydronephrosis. No bowel obstruction, free air, free fluid or abscess. Lymphadenopathy is present in the small bowel mesentery with surrounding fat stranding, appearing similar relative to comparative study. Retroperi toneal adenopathy also present and appearing mildly diminished in size. Lymphadenopathy also present in the pelvis and both inguinal regions appearing slightly decreased in size since the 01/22/2018 matilde dy. Prominent spondylosis L4-5. IMPRESSION: Ill-defined basilar lung opacities noted which may represent infection/pneumonia. Lymphadenopathy seen in the small bowel mesenteric, retroperitoneum and pelvis has a similar appearan ce to the prior studies and likely represent lymphoma.
--- NOTE | 2018-07-08 13:54 | RAD REPORT ---
EXAM DESCRIPTION: CT - Thorax Wo Con CLINICAL HISTORY: Chest pain PAIN COMPARISON: Chest For Pe Angio dated 03/25/2018 FINDINGS: Ill-defined airspace opacities noted in both lower lobes posteriorly and posterior segment s of both upper lobes. Lung aeration appears mildly improved since the comparative study. Trace left pleural fluid seen. No pneumothorax. Prominent lymph nodes are seen in both axillary regions compatible with axillary adenopathy. No concerning bony finding. No gross upper abdominal finding. All CT scans are performed using dose optimization technique as appropriate and may include automated exposure control or mA/KV adjustment according to patient size. IMPRESSION: Ill-defined opacities present in both lung bases and posterior segments of both upper lo bes, nonspecific but probably representing areas of residual pneumonia.Aeration of lungs is improved since the 03/2017 2018 study. Axillary lymphadenopathy bilaterally.
[2018-07-08] MEDS: PANTOPRAZOLE INJ 80 MG in NA CHLORIDE 0.9% 250 ML IV SCH ×2 (16:12→22:43)
[2018-07-08 16:28] VITALS: BMI 36.3
[2018-07-08] MEDS ORDERED: PNEUMOCOCCAL VACCINE 0.5 ML IMVAC ONE (17:00)
[2018-07-08] MEDS ORDERED: INFLUENZA VACCINE (for 3y+) 0.5 ML DOSE IMVAC ONE (17:00)
[2018-07-08 23:06] LABS: Hematocrit 27.4 % (36.0-45.0); MPV 9.1 fL (7.6-11.3)
[2018-07-09] MEDS: MORPHINE 4 MG/ML SYR IV PRN ×3 (03:33→16:52)
[2018-07-09] MEDS: PANTOPRAZOLE INJ 80 MG in NA CHLORIDE 0.9% 250 ML IV SCH ×2 (06:00→16:00)
[2018-07-09 06:09] LABS: Absolute Lymphocytes (CBC) 24.3 K/uL (0.7-4.9); Absolute Monocytes 0.2 K/uL (0.1-1.3); Absolute Neutrophil 0.3 K/uL (1.8-8.0); Eosinophils % 0.1 % (0-4.4); MCH 32.5 pg (27.0-35.0); MCV 91.6 fL (80-100); MPV 9.4 fL (7.6-11.3); Monocytes % 0.6 % (3.3-12.3); RBC Red Blood Cell Count 2.62 M/uL (3.86-4.86)
[2018-07-09 06:16] LABS: ALT/SGPT 14 U/L (12-78); AST/SGOT 8 U/L (15-37); Albumin 2.5 g/dL (3.4-5.0); Alkaline Phosphatase 54 U/L (45-117); BUN Blood Urea Nitrogen 8 mg/dL (7-18); Bicarbonate 27 mmol/L (21-32); Bilirubin Total 0.7 mg/dL (0.2-1.0); Glucose Level 89 mg/dL (74-106); Potassium 3.7 mmol/L (3.5-5.1); Protein, Total 5.3 g/dL (6.4-8.2); Sodium Level 143 mmol/L (136-145)
--- NOTE | 2018-07-09 06:48 | EKG ---
Test Date: 2018-07-08 Test Time: 05:12:45 Draw In Hand: VAL MEASUREMENT RESULTS: Intervals: Rate: 65 NE: 158 QRSD: 88 QT: 408 QTc: 424 [place]: P: -2 NE: 158 QRS: 9 T: 70 INTERPRETIVE STATEMENTS: Normal sinus rhythm Cannot rule out Anterior infarct, age undetermined Abnormal ECG Compared to ECG 07/08/2018 00:46:09 No significant changes Electronically Signed On 07-09-18 06:47:37 CDT by Stevan Olivia
[2018-07-09 11:33] LABS: Platelet Estimate DECR
--- NOTE | 2018-07-09 17:48 | P.PN ---
Subjective Date of Service: 07/09/18 Chief Complaint: Hematemesis/abdominal pain feels better today, no bleeding Physical Examination - Vital Signs Temperature: 99.2 F Blood Pressure: 150/64 Pulse: 72 Respirations: 18 Pulse Ox (%): 93 - Physical Exam General: Alert, In no apparent distress HEENT: Atraumatic, PERRLA, EOMI Neck: Supple, JVD not distended Respiratory: Clear to auscultation bilaterally, Normal air movement Cardiovascular: Regular rate/rhythm, Normal S1 S2 Gastrointestinal: Normal bowel sounds, No tenderness Musculoskeletal: No tenderness Integumentary: No rashes Neurological: Normal speech, Normal tone, Normal affect Lymphatics: No axilla or inguinal lymphadenopathy - Studies Medications List Reviewed: Yes Assessment And Plan - Current Problems (Diagnosis) (1) Hematemesis Onset Date: 07/09/18 Current Visit: Yes Status: Acute Qualifiers: Nausea presence: with nausea Qualified Code(s): K92.0 - Hematemesis (2) Thrombocytopenia Onset Date: 07/09/18 Current Visit: Yes Status: Acute (3) Upper GI bleeding Onset Date: 07/09/18 Current Visit: Yes Status: Acute (4) History of pulmonary embolism Current Visit: No Status: Acute (5) CLL (chronic lymphocytic leukemia) Onset Date: 01/23/18 Current Visit: No Status: Chronic (6) GERD (gastroesophageal reflux disease) Current Visit: Yes Status: Suspected Qualifiers: Esophagitis presence: with esophagitis Qualified Code(s): K21.0 - Gastro- esophageal reflux disease with esophagitis (7) Bacterial pneumonia Current Visit: Yes Status: Acute - Plan --HOLD Imbruca(GI Bleeding) --Start Levaquin IV for possible pneumonia --NPO --EGD today ? will call Dr Chung to clarify if she needs EGD --PPI IV --Labs tomorrow
[2018-07-09] MEDS: Levofloxacin500mg IV 500 MG/100 ML BAG IV SCH (18:00)
--- NOTE | 2018-07-09 21:28 | P.PN ---
Date of Service: 07/09/18 (Hematology-Oncology) Patient seen today at 5pm. Ms. Betts was initially diagnosed with Stage 4 CLL at our clinic. She did not wish to be on treatment for many months inspite of cytopenias and B symptoms and opted for holistic options. She continues to have repeated hospitalizations for various reasons including symptomatic anemia requiring multiple transfusions. Due to complexity of her condition, she wished to move near her daughter in [facility] where at one time she was hospitalized at [facility]. She established care with another oncologist Dr Bustillo who started her on ibrutinib. She states she insisted that he reduce the dose of ibrutinib due to poor tolerance and side effects like bleeding. She claims compliance but c/o nausea, loss of appetite and bleeding from rectum, vagina intermittently. She is now admitted due to nausea and vomiting with an episode of blood tinged vomitus. She also seems to be symptomatic with chest pains when her anemia gets worse less than 7gm. She seems to have moved back to [place] as she did not wish to be a burden on her daughter. She is also awaiting to transfer care to another Oncologist of the same group as Dr Bustillo, near [place]. She received PRBC and plts with symptomatic improvement. No other noted bleeding episodes while in hospital. She is awaiting EGD by Dr Leyva. She is on antibiotics for ? pneumonia. From the Hematology point of view, - Hold ibrutinib for now until GI bleeding is ruled out. Check LDH, retic ct, bilirubin (direct and total), Direct tabatha test to r/o hemolysis. - Transfuse PRBC to keep Hb >8 - Transfuse single donor platelets if plt count less than [id number] or if bleeding. - Various treatment options for treatment are available for CLL including chemo - immunotherapy. She is aware of the possibility of disease progression to a more aggressive lymphoma. But given her declining performance status with poor tolerance to a pill like ibrutinib (complains of various issues/ side effects), sensitivity to symptoms, delaying appropriate recommended care and preference of alternative/ holistic care, I believe, it will be quite a challenge to treat her. - She will follow up with Oncologist this week to discuss about her clinical presentations and side effects and discuss alternatives. Recommend check IgG level to assess need for any IVIG. - Rest of care as per medical team. - Discussed with house staff/ Dr Dominguez. 30 min discussion today with patient as above.
[2018-07-10] MEDS: ONDANSETRON 4 MG/2 ML VIAL IV PRN ×2 (00:04→20:43)
[2018-07-10] MEDS: MORPHINE 4 MG/ML SYR IV PRN ×4 (00:42→21:46)
[2018-07-10] MEDS: PANTOPRAZOLE INJ 80 MG in NA CHLORIDE 0.9% 250 ML IV SCH ×3 (01:56→21:46)
[2018-07-10 05:15] LABS: Absolute Lymphocytes (CBC) 21.8 K/uL (0.7-4.9); Absolute Monocytes 0.1 K/uL (0.1-1.3); Absolute Neutrophil 0.4 K/uL (1.8-8.0); Eosinophils % 0.2 % (0-4.4); Lymphocytes % 97.2 % (15.3-44.8); MCH 32.4 pg (27.0-35.0); MCV 93.6 fL (80-100); MPV 8.9 fL (7.6-11.3); Monocytes % 0.6 % (3.3-12.3); RBC Red Blood Cell Count 2.88 M/uL (3.86-4.86)
[2018-07-10 05:33] LABS: ALT/SGPT 13 U/L (12-78); AST/SGOT 11 U/L (15-37); Albumin 2.8 g/dL (3.4-5.0); Alkaline Phosphatase 62 U/L (45-117); BUN Blood Urea Nitrogen 7 mg/dL (7-18); Bicarbonate 28 mmol/L (21-32); Bilirubin Total 0.9 mg/dL (0.2-1.0); Glucose Level 96 mg/dL (74-106); Potassium 3.8 mmol/L (3.5-5.1); Protein, Total 6.1 g/dL (6.4-8.2); Sodium Level 142 mmol/L (136-145)
--- NOTE | 2018-07-10 13:02 | P.PN ---
Subjective Date of Service: 07/10/18 Primary Care Provider: None; Oncology-Dr. Snider Chief Complaint: Hematemesis/abdominal pain Subjective: Improving Physical Examination - Vital Signs Temperature: 98.6 F Blood Pressure: 117/56 Pulse: 75 Respirations: 16 Pulse Ox (%): 93 - Physical Exam General: Alert, In no apparent distress, Oriented x3, Cooperative HEENT: Atraumatic Neck: Supple Respiratory: Crackles/rales (Bilateral) Cardiovascular: Normal pulses, Regular rate/rhythm Gastrointestinal: Normal bowel sounds, Soft and benign, Non-distended, No tenderness, No masses, No rebound, No guarding Musculoskeletal: No erythema, No tenderness, No warmth Integumentary: No tenderness/swelling, No erythema, No warmth, No cyanosis Neurological: Normal speech, Normal strength at 5/5 x4 extr, Normal tone, Normal affect - Studies Medications List Reviewed: Yes Assessment & Plan Discharge Plan: Other (Possible skilled placement) Plan to discharge in: 48 Hours Physician Review Additional Text: Impression: Nausea, vomiting and hematemesis with noted anemia with thrombocytopenia with history of CLL on chemotherapy Suspect upper GI bleed Bilateral pneumonia Axillary adenopathy Plan: Nausea, vomiting and hematemesis with noted anemia with thrombocytopenia with history of CLL on chemotherapy: Will continue to monitor CBC closely. Patient on Protonix IV drip. GI consulted. GI plans for EGD evaluation. Patient seen and evaluated by oncology. Oncology recommends to discontinue chemotherapy medication. Patient has been given transfusion. Will maintain hemoglobin above 8.0. Will maintain platelet count above 15,000. Patient may require transfusions for both if below this range. Await findings from EGD. Will discuss further with GI and Hematology/Oncology. Patient may require skilled placement. Will discuss with patient and social services manager. Once improved will have physical therapy assess ambulation. Suspect upper GI bleed: Continue as above. EGD planned for today. Continue to monitor CBC Bilateral pneumonia: CT scan revealed opacities likely residual pneumonia. Will continue with Levaquin. Will wean off oxygen. Will recheck chest x-ray in the morning. Axillary adenopathy: Likely related to her CLL. Will monitor closely. This can be further addressed as an outpatient. Time Spent Managing Pts Care (In Minutes): 55
[2018-07-10 13:49] LABS: Absolute Lymphocytes (CBC) 19.8 K/uL (0.7-4.9); Absolute Monocytes 0.1 K/uL (0.1-1.3); Absolute Neutrophil 0.4 K/uL (1.8-8.0); Basophils % 0.1 % (0-1.3); Eosinophils % 0.4 % (0-4.4); MCH 31.7 pg (27.0-35.0); MCV 92.6 fL (80-100); Monocytes % 0.3 % (3.3-12.3); RBC Red Blood Cell Count 2.91 M/uL (3.86-4.86)
[2018-07-10] MEDS ORDERED: Ringers Lactate 1,000 ML IV ONE (13:52)
[2018-07-10 14:11] LABS: Platelet Estimate DECR; Urine White Blood Cell Casts OK
[2018-07-10 14:12] LABS: Blood Morphology Comment NOT SEEN (NOT SEEN)
[2018-07-10] MEDS ORDERED: PROPOFOL 200 MG/20 ML VIAL IV ONE (14:18)
[2018-07-10] MEDS: Levofloxacin500mg IV 500 MG/100 ML BAG IV SCH (17:08)
--- NOTE | 2018-07-11 02:09 | OP ---
Surgeon: Prabhu Olivier MD Procedure To Be Performed: Esophagogastroduodenoscopy. Indication For Procedure: Upper GI bleed. For full details, please refer to Dr. Leyva's note who h ad seen the patient over the weekend. He was unable to perform the endoscopy. Therefore, I went ahe ad and scheduled it. Plan For Anesthesia: Monitored anesthesia care. Complexity: Average. Technique: After obtaining informed consent from the patient and explaining risks and complications which include, but are not limited to bleeding, infection, perforation, and anesthesia complication, the patient was placed in left lateral position, and sedation was given. From then on, the scope was advanced into the mouth and carefully guided up to the second portion of the duodenum. No evidence of active bleeding was seen. After the completion of examination and therapeutic maneuvers, scope an d equipment were withdrawn and procedure terminated in a safe manner. Findings: Esophagus: No gross lesion seen in the entire esophagus except possibly a very small hiat al hernia. Stomach: The entire stomach appeared normal; however, there was one area of localized mo [id number] gastritis. This may have been the source of bleeding in combination with severe thr ombocytopenia, which the patient had due to CLL. Therefore, decision was taken to ablate this. Whet her this will be of any benefit is questionable, but there is no other lesion that was identified. A PC ablation was done. Duodenum: The bulb and second portion appeared normal. Complications: None. Tolerance To Anesthesia: Excellent. Postoperative Diagnoses: Hiatal hernia, localized gastritis status post ablation. No identified heath rce of bleeding, but ablation was done to ensure eradication of the inflamed area and to cauterize an y underlying AVMs. Plan: Continue PPI. Need to keep the platelets at adequate level. Otherwise, the patient will cont inue to have bleeding. US/MODL Voice ID: [id number] Report ID: [id number]
[2018-07-11] MEDS: MORPHINE 4 MG/ML SYR IV PRN (03:14)
[2018-07-11 05:13] LABS: Absolute Lymphocytes (CBC) 17.6 K/uL (0.7-4.9); Absolute Monocytes 0.1 K/uL (0.1-1.3); Absolute Neutrophil 0.4 K/uL (1.8-8.0); Eosinophils % 0.4 % (0-4.4); Hematocrit 25.3 % (36.0-45.0); Lymphocytes % 97.2 % (15.3-44.8); MCH 33.1 pg (27.0-35.0); MCV 92.6 fL (80-100); MPV 9.7 fL (7.6-11.3); Monocytes % 0.4 % (3.3-12.3); RBC Red Blood Cell Count 2.73 M/uL (3.86-4.86)
[2018-07-11 05:49] LABS: BUN Blood Urea Nitrogen 7 mg/dL (7-18); Bicarbonate 27 mmol/L (21-32); Glucose Level 97 mg/dL (74-106); Potassium 3.9 mmol/L (3.5-5.1); Sodium Level 139 mmol/L (136-145)
--- NOTE | 2018-07-11 06:50 | EKG ---
Test Date: 2018-07-11 Test Time: 06:04:13 Bookkeeping Clerks Supervisor: RT Escobedo MEASUREMENT RESULTS: Intervals: Rate: 70 MT: 160 QRSD: 82 QT: 388 QTc: 419 [place]: P: -24 MT: 160 QRS: 7 T: 38 INTERPRETIVE STATEMENTS: Normal sinus rhythm Possible Inferior infarct, age undetermined Cannot rule out Anterior infarct, age undetermined Abnormal ECG Compared to ECG 07/08/2018 05:12:45 No significant changes Electronically Signed On 07-11-18 06:49:28 CDT by Markos Barragan
[2018-07-11] MEDS: PANTOPRAZOLE INJ 80 MG in NA CHLORIDE 0.9% 250 ML IV SCH ×3 (08:00→22:29)
--- NOTE | 2018-07-11 08:01 | RAD REPORT ---
EXAM DESCRIPTION: RAD - Chest Pa And Lat (2 Views) - 07/11/2018 6:39 am CLINICAL HISTORY: Bilateral pneumonia COMPARISON: CT chest July 08, portable chest July 08 TECHNIQUE: PA and lateral views of the chest were obtained. FINDINGS: The lungs are normal volume. Mid and upper lung ghotra are clear. No failure or volume ove rload. Patchy lung base opacification is still present. Costophrenic angle blunting is still present on the lateral projection. Heart size is normal and central vasculature is within normal limits. N o pneumothorax. No enlarging pleural effusion. No acute bony finding noted. No aortic abnormality. IMPRESSION: Posterior lung base parenchymal opacification is present similar to the CT study. Progre ssive process is not currently suspected. No failure or volume overload.
--- NOTE | 2018-07-11 09:29 | P.PN ---
Subjective Date of Service: 07/11/18 Primary Care Provider: None; Oncology-Dr. Snider Chief Complaint: Hematemesis/abdominal pain Subjective: Improving (Patient still requiring oxygen.) Physical Examination - Vital Signs Temperature: 97 F Blood Pressure: 105/47 Pulse: 70 Respirations: 18 Pulse Ox (%): 91 - Physical Exam General: Alert, In no apparent distress, Oriented x3, Cooperative HEENT: Atraumatic Neck: Supple Respiratory: Crackles/rales (Bilateral to the bases but improved aeration) Cardiovascular: Normal pulses, Regular rate/rhythm Gastrointestinal: Normal bowel sounds, Soft and benign, Non-distended, No tenderness, No masses, No rebound, No guarding Musculoskeletal: No erythema, No tenderness, No warmth Integumentary: No tenderness/swelling, No erythema, No warmth, No cyanosis Neurological: Normal speech, Normal strength at 5/5 x4 extr, Normal tone, Normal affect - Studies Medications List Reviewed: Yes Assessment & Plan Discharge Plan: Home Plan to discharge in: 24 Hours Physician Review Additional Text: Impression: Nausea, vomiting and hematemesis with noted anemia with thrombocytopenia with history of CLL on chemotherapy Suspect upper GI bleed, status post EGD showing hiatal hernia, localized gastritis status post ablation. No identified source of bleeding but ablation done to ensure eradication of inflamed area Bilateral pneumonia Axillary adenopathy Plan: Nausea, vomiting and hematemesis with noted anemia with thrombocytopenia with history of CLL on chemotherapy: Will continue to monitor CBC closely. Patient on Protonix IV drip. Status post EGD. Ablation to localized gastritis done. Will ambulate patient. Will wean off oxygen. Physical therapy to assess ambulation. Anticipate discharge in the next 1-2 days once off oxygen and CBC improved. Will maintain hemoglobin above 8.0. Will maintain platelet count above 15,000. Patient may require transfusions for both if below this range. Suspect upper GI bleed, status post EGD showing hiatal hernia, localizing gastritis status post ablation. No identified source of bleeding but ablation done to ensure eradication of inflamed area: Continue as above. Case discussed with GI. Will continue with Protonix. Will monitor CBC. Patient will require Protonix at discharge. Bilateral pneumonia: CT scan revealed opacities likely residual pneumonia. X- ray shows some improvement. Will continue with Levaquin. Will wean off oxygen. Will have physical therapy ambulate. Will provide incentive spirometer. Anticipate discharge in the next 1-2 days once she is off oxygen. Axillary adenopathy: Likely related to her CLL. Will monitor closely. This can be further addressed as an outpatient. Time Spent Managing Pts Care (In Minutes): 55
[2018-07-11] MEDS ORDERED: LACTULOSE 20 GM/30 ML UCUP PO PRN (15:50)
[2018-07-11] MEDS: DOCUSATE NA 100 MG CAP PO SCH (16:58)
[2018-07-11] MEDS: Levofloxacin500mg IV 500 MG/100 ML BAG IV SCH (16:58)
[2018-07-11] MEDS: HYDROCODONE/APAP 7.5/325 MG TAB PO PRN (22:29)
[2018-07-12 05:15] LABS: Absolute Monocytes 0.1 K/uL (0.1-1.3); Absolute Neutrophil 0.4 K/uL (1.8-8.0); Eosinophils % 0.2 % (0-4.4); Hematocrit 25.4 % (36.0-45.0); Lymphocytes % 97.3 % (15.3-44.8); MCH 32.1 pg (27.0-35.0); MCV 92.1 fL (80-100); MPV 9.4 fL (7.6-11.3); Monocytes % 0.3 % (3.3-12.3); RBC Red Blood Cell Count 2.76 M/uL (3.86-4.86)
[2018-07-12 05:20] LABS: BUN Blood Urea Nitrogen 8 mg/dL (7-18); Bicarbonate 29 mmol/L (21-32); Glucose Level 97 mg/dL (74-106); Sodium Level 143 mmol/L (136-145)
[2018-07-12] MEDS: ONDANSETRON 4 MG/2 ML VIAL IV PRN (06:21)
[2018-07-12] MEDS: PANTOPRAZOLE INJ 80 MG in NA CHLORIDE 0.9% 250 ML IV SCH (06:22)
--- NOTE | 2018-07-12 07:01 | EKG ---
Test Date: 2018-07-12 Test Time: 03:36:47 Roving Marker: RT MEASUREMENT RESULTS: Intervals: Rate: 66 OR: 154 QRSD: 82 QT: 394 QTc: 413 [place]: P: -10 OR: 154 QRS: 5 T: 36 INTERPRETIVE STATEMENTS: Normal sinus rhythm Possible Inferior infarct, age undetermined Cannot rule out Anterior infarct, age undetermined Abnormal ECG Compared to ECG 07/11/2018 06:04:13 No significant changes Electronically Signed On 07-12-18 07:00:35 CDT by Markos Barragan
[2018-07-12] MEDS: DOCUSATE NA 100 MG CAP PO SCH (09:08)
--- NOTE | 2018-07-12 09:30 | P.PN ---
Subjective Date of Service: 07/12/18 Primary Care Provider: None; Oncology-Dr. Snider Chief Complaint: Hematemesis/abdominal pain Subjective: Improving (Patient off oxygen. Patient feels better.) Physical Examination - Vital Signs Temperature: 98.7 F Blood Pressure: 137/60 Pulse: 68 Respirations: 18 Pulse Ox (%): 96 - Physical Exam General: Alert, In no apparent distress, Oriented x3, Cooperative HEENT: Atraumatic Neck: Supple Respiratory: Clear to auscultation bilaterally, Normal air movement Cardiovascular: Normal pulses, Regular rate/rhythm Gastrointestinal: Normal bowel sounds, Soft and benign, Non-distended, No tenderness, No masses, No rebound, No guarding Musculoskeletal: No erythema, No tenderness, No warmth Integumentary: No tenderness/swelling, No erythema, No warmth, No cyanosis Neurological: Normal speech, Normal strength at 5/5 x4 extr, Normal tone, Normal affect - Studies Medications List Reviewed: Yes Assessment & Plan Discharge Plan: Home Plan to discharge in: 24 Hours Physician Review Additional Text: Impression: Nausea, vomiting and hematemesis with noted anemia with thrombocytopenia with history of CLL on chemotherapy Suspect upper GI bleed, status post EGD showing hiatal hernia, localized gastritis status post ablation. No identified source of bleeding but ablation done to ensure eradication of inflamed area Bilateral pneumonia Axillary adenopathy Plan: Nausea, vomiting and hematemesis with noted anemia with thrombocytopenia with history of CLL on chemotherapy: Patient improved. CBC shows improvement in hemoglobin, platelet count and white blood cell count. Will transition Protonix to oral. Patient status post EGD and ablation to localized gastritis. Will advance diet to soft. Will ambulate. Will reassess this afternoon. If clinically stable then the patient can be discharged home. Will continue to maintain hemoglobin above 8.0 and platelet count above 15,000. Suspect upper GI bleed, status post EGD showing hiatal hernia, localizing gastritis status post ablation. No identified source of bleeding but ablation done to ensure eradication of inflamed area: Continue as above. Case discussed with GI. Will continue with Protonix. Will transition Protonix to oral. Bilateral pneumonia: CT scan revealed opacities likely residual pneumonia. X- ray shows some improvement. Patient off oxygen. Will change Levaquin to oral. Will reassess this afternoon. Encourage incentive spirometer. Possible discharge today if clinically improved. Axillary adenopathy: Likely related to her CLL. Will monitor closely. This can be further addressed as an outpatient. Time Spent Managing Pts Care (In Minutes): 55
--- NOTE | 2018-07-12 09:49 | RAD REPORT ---
EXAM DESCRIPTION: RAD - Chest Pa And Lat (2 Views) - 07/12/2018 9:26 am CLINICAL HISTORY: Pneumonia, history of leukemia COMPARISON: July 11 chest examination, July 08 CT chest examination TECHNIQUE: PA and lateral views of the chest were obtained. FINDINGS: The lungs are normal volume. Posterior lung base parenchymal opacification has improved bu t not fully resolved. No progressive lung parenchymal process. Heart size is normal and central vas culature is within normal limits. No pleural effusion or pneumothorax seen. No acute bony finding n oted. No aortic abnormality. IMPRESSION: Significant but incomplete clearing of posterior lung base opacification since July 11. No new or progressive finding.
[2018-07-12] MEDS: PANTOPRAZOLE 40MG TABLET PO SCH (17:23)
[2018-07-12] MEDS: TRAMADOL HCL 50 MG TAB PO PRN (18:47)
[2018-07-13] MEDS: HYDROCODONE/APAP 7.5/325 MG TAB PO PRN (05:10)
[2018-07-13 05:13] LABS: Absolute Lymphocytes (CBC) 14.6 K/uL (0.7-4.9); Absolute Monocytes 0.1 K/uL (0.1-1.3); Absolute Neutrophil 0.4 K/uL (1.8-8.0); Eosinophils % 0.4 % (0-4.4); Hematocrit 24.6 % (36.0-45.0); Lymphocytes % 96.2 % (15.3-44.8); MCH 32.2 pg (27.0-35.0); MCV 92.2 fL (80-100); MPV 9.9 fL (7.6-11.3); Monocytes % 0.5 % (3.3-12.3); RBC Red Blood Cell Count 2.67 M/uL (3.86-4.86)
[2018-07-13 05:23] LABS: Magnesium 1.9 mg/dL (1.8-2.4); Potassium 3.8 mmol/L (3.5-5.1)
[2018-07-13 05:44] LABS: Blood Morphology Comment NOT SEEN (NOT SEEN); Platelet Estimate DECR; Smudge Cells 13
[2018-07-13] MEDS ORDERED: levoFLOXacin 500 MG TAB PO SCH (09:00)
[2018-07-13 10:36] VITALS: O2SAT 92
[2018-07-13] MEDS: DOCUSATE NA 100 MG CAP PO SCH (10:52)
[2018-07-13] MEDS: TRAMADOL HCL 50 MG TAB PO PRN (10:52)
[2018-07-13] MEDS: PANTOPRAZOLE 40MG TABLET PO SCH (10:54)
[2018-07-13 12:39] LABS: Absolute Lymphocytes (CBC) 14.5 K/uL (0.7-4.9); Absolute Monocytes 0.1 K/uL (0.1-1.3); Absolute Neutrophil 0.4 K/uL (1.8-8.0); Basophils % 0.1 % (0-1.3); Eosinophils % 0.4 % (0-4.4); Hematocrit 24.1 % (36.0-45.0); Lymphocytes % 96.2 % (15.3-44.8); MCH 32.2 pg (27.0-35.0); MCV 91.4 fL (80-100); MPV 9.7 fL (7.6-11.3); Monocytes % 0.6 % (3.3-12.3); RBC Red Blood Cell Count 2.64 M/uL (3.86-4.86)
--- NOTE | 2018-07-13 15:12 | P.DS ---
Admission Date: 07/08/18 Discharge Date: 07/13/18 Primary Care Provider: Dr. Renteria; Oncology-Dr. Snider Disposition: [place] [facility] Discharge Condition: GOOD Reason for Admission: Hematemesis/abdominal pain Consultations: Hematology-Dr. Snider GI-Dr. Olivier Procedures: CT chest: COMPARISON: Chest For Pe Angio dated 03/25/2018 FINDINGS: Ill-defined airspace opacities noted in both lower lobes posteriorly and posterior segments of both upper lobes. Lung aeration appears mildly improved since the comparative study. Trace left pleural fluid seen. No pneumothorax. Prominent lymph nodes are seen in both axillary regions compatible with axillary adenopathy. No concerning bony finding. No gross upper abdominal finding. All CT scans are performed using dose optimization technique as appropriate and may include automated exposure control or mA/KV adjustment according to patient size. IMPRESSION: Ill-defined opacities present in both lung bases and posterior segments of both upper lobes, nonspecific but probably representing areas of residual pneumonia.Aeration of lungs is improved since the 03/2017 study. Axillary lymphadenopathy bilaterally. CT abdomen: COMPARISON: Abdomen Pelvis W Contrast dated 01/22/2018; Abdomen Pelvis W Contrast dated 07/13/2017; Abdomen Pelvis W Contrast dated 03/16/2017 TECHNIQUE: Biphasic CT imaging of the abdomen and pelvis was performed with 100 ml non-ionic IV contrast. All CT scans are performed using dose optimization technique as appropriate and may include automated exposure control or mA/KV adjustment according to patient size. FINDINGS: Poorly defined airspace opacities in both lung bases posteriorly is in with trace left pleural fluid, likely represents infection. The liver demonstrates no focal mass or biliary dilatation. Spleen is mildly enlarged. Pancreas, adrenal glands are normal. Both kidneys show mild hydronephrosis. No bowel obstruction, free air, free fluid or abscess. Lymphadenopathy is present in the small bowel mesentery with surrounding fat stranding, appearing similar relative to comparative study. Retroperitoneal adenopathy also present and appearing mildly diminished in size. Lymphadenopathy also present in the pelvis and both inguinal regions appearing slightly decreased in size since the 01/22/2018 study. Prominent spondylosis L4-5. IMPRESSION: Ill-defined basilar lung opacities noted which may represent infection/pneumonia. Lymphadenopathy seen in the small bowel mesenteric, retroperitoneum and pelvis has a similar appearance to the prior studies and likely represent lymphoma. EGD: Findings: Esophagus: No gross lesion seen in the entire esophagus except possibly a very small hiatal hernia. Stomach: The entire stomach appeared normal; however, there was one area of localized [id number] gastritis. This may have been the source of bleeding in combination with severe thrombocytopenia, which the patient had due to CLL. Therefore, decision was taken to ablate this. Whether this will be of any benefit is questionable, but there is no other lesion that was identified. APC ablation was done. Duodenum : The bulb and second portion appeared normal. Complications: None. Tolerance To Anesthesia: Excellent. Postoperative Diagnoses: Hiatal hernia, localized gastritis status post ablation. No identified source of bleeding, but ablation was done to ensure eradication of the inflamed area and to cauterize any underlying AVMs. Plan: Continue PPI. Need to keep the platelets at adequate level. Otherwise, the patient will continue to have bleeding. Medical problem list: Nausea, vomiting and hematemesis with noted anemia with thrombocytopenia with history of CLL on chemotherapy Suspect upper GI bleed, status post EGD showing hiatal hernia, localized gastritis status post ablation. No identified source of bleeding but ablation done to ensure eradication of inflamed area Bilateral pneumonia Axillary adenopathy Brief History of Present Illness: 68-year-old female present emergency room with nausea and vomiting. Patient with CLL. Patient with anemia, thrombocytopenia and bilateral pneumonia. Patient admitted for further evaluation. Hospital Course: Patient admitted for nausea, vomiting and hematemesis. Anemia and thrombocytopenia were noted with patient with history of CLL on recent chemotherapy. It was determined that the chemotherapy likely cause her dysfunction. Patient evaluated by Hematology/GI. Hematology recommended to discontinue chemotherapy. Patient was given up to 3 units of blood. Patient had EGD showing localized gastritis and hiatal hernia. Ablation was done. Patient was monitored. Hemoglobin remained stable after ablation and transfusion. At discharge hemoglobin 8.5. At discharge patient will follow up with hematology in 1 week to monitor progress. Recheck CBC at that time is recommended. Patient found to have pneumonia. Patient was placed on antibiotic therapy. Patient improved. Patient will continue with Levaquin 500 mg daily for 3 days. Patient continue with incentive spirometer. Recommendation to recheck chest x -ray in 2-4 weeks to monitor resolution. As mentioned above patient had EGD showing hiatal hernia, localized gastritis status post ablation. GI recommended to continue with Protonix 40 mg 1 pill twice daily. Recommendation follow up with GI as an outpatient to further monitor. Vital Signs/Physical Exam: Temp Pulse Resp BP Pulse Ox 98.4 F 69 20 125/59 L 96 07/13/18 08:00 07/13/18 08:00 07/13/18 08:00 07/13/18 08:00 07/13/18 08:00 General: Alert, In no apparent distress, Oriented x3, Cooperative HEENT: Atraumatic Neck: Supple Respiratory: Clear to auscultation bilaterally, Normal air movement Cardiovascular: Normal pulses, Regular rate/rhythm Gastrointestinal: Normal bowel sounds, Soft and benign, Non-distended, No tenderness, No masses, No rebound, No guarding Musculoskeletal: No erythema, No tenderness, No warmth Integumentary: No tenderness/swelling, No erythema, No warmth, No cyanosis Neurological: Normal speech, Normal strength at 5/5 x4 extr, Normal tone, Normal affect Laboratory Data at Discharge: WBC 15.1 K/uL (4.3-10.9) H 07/13/18 11:53 Hgb 8.5 g/dL (12.0-15.0) L 07/13/18 11:53 Hct 24.1 % (36.0-45.0) L 07/13/18 11:53 Plt Count 27 K/uL (152-406) L* 07/13/18 11:53 PT 11.7 SECONDS (9.5-12.5) 07/08/18 01:00 INR 0.99 07/08/18 01:00 Sodium 139 mmol/L (136-145) 07/13/18 04:53 Potassium 3.8 mmol/L (3.5-5.1) 07/13/18 04:53 BUN 10 mg/dL (7-18) 07/13/18 04:53 Creatinine 0.70 mg/dL (0.55-1.3) 07/13/18 04:53 Glucose 96 mg/dL (74-106) 07/13/18 04:53 Magnesium 1.9 mg/dL (1.8-2.4) 07/13/18 04:53 Total Bilirubin 0.9 mg/dL (0.2-1.0) 07/10/18 04:21 AST 11 U/L (15-37) L 07/10/18 04:21 ALT 13 U/L (12-78) 07/10/18 04:21 Alkaline Phosphatase 62 U/L (45-117) 07/10/18 04:21 Troponin I < 0.02 ng/mL (0.0-0.045) 07/08/18 14:24 Lipase 110 U/L (73-393) 07/08/18 01:00 Home Medications: traMADol HCL [Ultram*] 50 mg PO Q6H PRN 06/27/18 Docusate [Colace Cap*] 100 mg PO DAILY #30 cap 07/13/18 Pantoprazole [Protonix Tab*] 40 mg PO BIDAC #60 tab 07/13/18 levoFLOXacin [Levaquin*] 500 mg PO DAILY #3 tab 07/13/18 New Medications: Docusate [Colace Cap*] 100 mg PO DAILY #30 cap levoFLOXacin [Levaquin*] 500 mg PO DAILY #3 tab Pantoprazole [Protonix Tab*] 40 mg PO BIDAC #60 tab Patient Discharge Instructions: 1. Patient will need to follow up with her PCP in 1 week to follow up this hospitalization. 2. Patient admitted for nausea, vomiting and hematemesis. Anemia and thrombocytopenia were noted with patient with history of CLL on recent chemotherapy. It was determined that the chemotherapy likely cause her dysfunction. Patient evaluated by Hematology/GI. Hematology recommended to discontinue chemotherapy. Patient was given up to 3 units of blood. Patient had EGD showing localized gastritis and hiatal hernia. Ablation was done. Patient was monitored. Hemoglobin remained stable after ablation and transfusion. At discharge hemoglobin 8.5. At discharge patient will follow up with hematology in 1 week to monitor progress. Recheck CBC at that time is recommended. 3. Patient found to have pneumonia. Patient was placed on antibiotic therapy. Patient improved. Patient will continue with Levaquin 500 mg daily for 3 days. Patient continue with incentive spirometer. Recommendation to recheck chest x-ray in 2-4 weeks to monitor resolution. 4. As mentioned above patient had EGD showing hiatal hernia, localized gastritis status post ablation. GI recommended to continue with Protonix 40 mg 1 pill twice daily. Recommendation follow up with GI as an outpatient to further monitor. 5. Patient provided stool softener. 6. Patient will continue with home health at discharge. Diet: AHA Activity: Fall precautions Time spent managing pt's care (in minutes): 55
[2018-07-13 15:17] VITALS: BP 134/63
[2018-07-13 15:27] VITALS: TEMP 97.9
--- NOTE | 2018-07-14 07:53 | EKG ---
Test Date: 2018-07-13 Test Time: 03:06:38 [employer] Specialist: RT MEASUREMENT RESULTS: Intervals: Rate: 70 CA: 152 QRSD: 86 QT: 388 QTc: 419 [place]: P: -4 CA: 152 QRS: 1 T: 18 INTERPRETIVE STATEMENTS: Normal sinus rhythm Inferior infarct, age undetermined Abnormal ECG Compared to ECG 07/12/2018 03:36:47 No significant changes Electronically Signed On 07-14-18 07:49:09 CDT by Markos Barragan
== END 2018-07-13 17:15 | disposition home health service (06) | DRG 377 ==
LOC: ER 23:45 → ERHOLD 07-08 01:36 → 2ND 07-08 04:04 → OBSVTOIN 07-08 09:38
PROVIDERS: ADMIT Hospitalist; ATTEND Family Medicine
PROC: 30233R1 Transfusion of Nonautologous Platelets into Peripheral Vein, Percutaneous Approach (ICD-10-PCS; 2018-07-08)
PROC: 30233N1 Transfusion of Nonautologous Red Blood Cells into Peripheral Vein, Percutaneous Approach (ICD-10-PCS; 2018-07-08)
PROC: 0D568ZZ Destruction of Stomach, Via Natural or Artificial Opening Endoscopic (ICD-10-PCS; principal; 2018-07-10 14:30)
DX: K92.0 Hematemesis (principal); J15.9 Unspecified bacterial pneumonia; C91.10 Chronic lymphocytic leukemia of B-cell type not having achieved remission; D62 Acute posthemorrhagic anemia; T45.1X5A Adverse effect of antineoplastic and immunosuppressive drugs, initial encounter; K92.2 Gastrointestinal hemorrhage, unspecified; D69.6 Thrombocytopenia, unspecified; Y92.019 Unspecified place in single-family (private) house as the place of occurrence of the external cause; K29.70 Gastritis, unspecified, without bleeding; K44.9 Diaphragmatic hernia without obstruction or gangrene; Z86.711 Personal history of pulmonary embolism; Z79.01 Long term (current) use of anticoagulants; K21.0 Gastro-esophageal reflux disease with esophagitis; R59.0 Localized enlarged lymph nodes
CPT/HCPCS: 36415; 71045; 71046; 71250; 74177; 80048; 80053; 80076; 81003; 82607; 82728; 82746; 83540; 83690; 83735; 83880; 84466; 84484; 85014; 85018; 85025; 85044; 85049; 85610; 86850; 86900; 86901; 93005; 96361; 96374; 96375; 97163; 99285; C9113; J1170; J2270; J2405; J3010; J7030; P9016; P9035; Q9967

== ENCOUNTER 2018-08-01 16:21 | Observation (INO) | payer OTHER ==
--- OUTSIDE RECORDS SUMMARY | 2018-08-01 16:24 | XMS REPORT | Clinical Summary ---
:1950 Author Organization [facility] Address [address] [place] [address] Care Team Providers Name Role Phone Edith Miller MD Primary Care Provider Allergies Active Allergy Reactions Severity Noted Date Comments Ceftriaxone 07/23/2018 Penicillins 07/23/2018 Prednisone 07/23/2018 Current Medications Prescription Sig. Disp. Refills Start Date End Date Status traMADol (ULTRAM) 50 Take 50 mg by Active mg tablet mouth every 6 (six) hours as needed for moderate pain. pantoprazole Take 40 mg by Active (PROTONIX) 40 MG EC mouth 2 (two) tablet times a day. docusate sodium Take 100 mg by Active (COLACE) 100 MG mouth daily. capsule MULTIVITAMIN ORAL Take 1 tablet Active by mouth daily. ergocalciferol Take 50,000 Active (VITAMIN D2) 50,000 Units by mouth unit capsule once a week. traMADol (ULTRAM) 50 Take 1 tablet 30 tablet 0 07/25/2018 Active mg tablet (50 mg total) 8 by mouth every 6 (six) hours as needed for moderate pain for up to 30 days. ondansetron ODT Take 1 tablet 10 tablet 0 07/25/2018 Active (ZOFRAN-ODT) 4 MG (4 mg total) 8 disintegrating by mouth every tablet 8 (eight) hours as needed for nausea or vomiting for up to 30 days. ferrous sulfate Take 1 tablet 30 tablet 0 07/25/2018 Active (FERROUSUL) 325 (65 (325 mg total) 9 FE) MG tablet by mouth daily with breakfast. ibrutinib (IMBRUVICA Take by mouth. Discontinued ORAL) 8 Active Problems Problem Noted Date CLL (chronic lymphocytic leukemia) (HCC) 07/24/2018 Anemia 07/24/2018 Hematochezia 07/24/2018 Splenomegaly 07/24/2018 Thrombocytopenia (HCC) 07/23/2018 Encounters Date Type Specialty Care Team Description 07/27/2018 Orders Only Oncology Del[place], Anemia, unspecified type HARLEY Hawk (Primary Dx) 07/26/2018 Telephone Oncology Pat Hurtado MA 07/26/2018 Orders Only Oncology Pat Hurtado, Anemia, unspecified type ( Primary Dx); MIKE Thrombocytopenia (HCC) 07/26/2018 Orders Only Oncology Pat Hurtado, Anemia, unspecified type ( Primary Dx); MA Thrombocytopenia (HCC) 07/23/2018 - Emergency General Internal Don Lion Thrombocytopenia ( HCC) (Primary Dx); 07/25/2018 Tatiana Roberts MD Anemia, unspecified type Ivis Hughes MD Opara, Emmanuel C., MD after 07/31/2017 Social History Tobacco Use Types Packs/Day Years Used Date Never Smoker Smokeless Tobacco: Never Used Alcohol Use Drinks/Week oz/Week Comments No Sex Assigned at Date Recorded Not on file Last Filed Vital Signs Vital Sign Reading Time Taken Blood Pressure 123/62 07/25/2018 1:46 PM CDT Pulse 80 07/25/2018 1:46 PM CDT Temperature 37.2 C (98.9 F) 07/25/2018 1:46 PM CDT Respiratory Rate 16 07/25/2018 1:46 PM CDT Oxygen Saturation 94% 07/25/2018 1:46 PM CDT Inhaled Oxygen Concentration - - Weight 90.4 kg (199 lb 6.4 oz) 07/25/2018 4:04 AM CDT Height 160 cm (5' 3") 07/23/2018 8:26 PM CDT Body Mass Index 35.32 07/25/2018 4:04 AM CDT Plan of Treatment Health Maintenance Due Date Last Done Comments BREAST CANCER SCREENING 02/25/2002 COLON CANCER SCREENING 02/25/2002 SHINGRIX VACCINE (#1) 02/25/2002 ZOSTER VACCINE 2012 PNEUMOCOCCAL POLYSACCHARIDE VACCINE AGE 65 AND OVER 02/25/2017 PNEUMOCOCCAL-13 02/25/2017 INFLUENZA VACCINE 05/09/2018 Implants Implanted Type Area [employer] Device Expiration Model / Identifier Date Serial / Lot Bone Plate Bone Left: Ankle Plate Bone Plate-01/21/2003 Bone Left: Ankle Implanted: 01/21/2003 (Quantity not on file) Plate Mesh-10/14/2005 Mesh Abdomen, Implanted: 10/14/2005 (Quantity not on file) Middle Quadrant/Non Specific Procedures Procedure Name Priority Date/Time Associated Comments Diagnosis MANUAL DIFFERENTIAL Routine 07/25/2018 5:05 Results for this AM CDT procedure are in the results section. ESTIMATED GFR Routine 07/25/2018 5:05 Results for this AM CDT procedure are in the results section. BASIC METABOLIC PANEL Routine 07/25/2018 5:05 Results for this AM CDT procedure are in the results section. CBC WITH PLATELET AND Routine 07/25/2018 5:05 Results for this DIFFERENTIAL AM CDT procedure are in the results section. CT CHEST W CONTRAST Routine 07/24/2018 5:35 Results for this ABDOMEN W CONTRAST PM CDT procedure are in PELVIS W CONTRAST the results section. MANUAL DIFFERENTIAL Routine 07/24/2018 4:05 Results for this PM CDT procedure are in the results section. CBC WITH PLATELET AND Routine 07/24/2018 4:05 Results for this DIFFERENTIAL PM CDT procedure are in the results section. MANUAL DIFFERENTIAL Routine 07/24/2018 4:40 Results for this AM CDT procedure are in the results section. ESTIMATED GFR Routine 07/24/2018 4:40 Results for this AM CDT procedure are in the results section. BASIC METABOLIC PANEL Routine 07/24/2018 4:40 Results for this AM CDT procedure are in the results section. CBC WITH PLATELET AND Routine 07/24/2018 4:40 Results for this DIFFERENTIAL AM CDT procedure are in the results section. TRANSFUSE PLATELETS Routine 07/24/2018 3:29 AM CDT TRANSFUSE PLATELETS Routine 07/24/2018 1:12 AM CDT IMMUNOFIXATION, SERUM STAT 07/23/2018 10:40 Results for this PM CDT procedure are in the results section. IMMUNOGLOBULIN M STAT 07/23/2018 10:40 Results for this PM CDT procedure are in the results section. IMMUNOGLOBULIN G STAT 07/23/2018 10:40 Results for this PM CDT procedure are in the results section. IMMUNOGLOBULIN A STAT 07/23/2018 10:40 Results for this PM CDT procedure are in the results section. SERUM ELECTROPHORESIS STAT 07/23/2018 10:40 Results for this PM CDT procedure are in the results section. LDH Routine 07/23/2018 10:40 Results for this PM CDT procedure are in the results section. HEPATITIS ACUTE PANEL STAT 07/23/2018 10:40 Results for this PM CDT procedure are in the results section. RAPID HIV 1 & 2 STAT 07/23/2018 10:40 Results for this PM CDT procedure are in the results section. FOLATE RBC (GROUP TEST) STAT 07/23/2018 10:40 Results for this PM CDT procedure are in the results section. VITAMIN B12 LEVEL STAT 07/23/2018 10:40 Results for this PM CDT procedure are in the results section. TOTAL IRON BINDING Routine 07/23/2018 10:40 Results for this CAPACITY PM CDT procedure are in the results section. HAPTOGLOBIN STAT 07/23/2018 10:40 Results for this PM CDT procedure are in the results section. FERRITIN LEVEL STAT 07/23/2018 10:40 Results for this PM CDT procedure are in the results section. RETICULOCYTE COUNT STAT 07/23/2018 10:40 Results for this PM CDT procedure are in the results section. FLOW CYTOMETRY STAT 07/23/2018 10:40 Results for this EVALUATION PM CDT procedure are in the results section. XR CHEST 1 VW STAT 07/23/2018 7:27 Results for this PM CDT procedure are in the results section. DIRECT VAUGHN' (DEMAR) STAT 07/23/2018 5:21 Results for this PM CDT procedure are in the results section. URINE CULTURE STAT 07/23/2018 5:21 Results for this PM CDT procedure are in the results section. PREPARE RBC Timed 07/23/2018 5:19 Results for this PM CDT procedure are in the results section. PREPARE PLATELET Timed 07/23/2018 5:19 Results for this PHERESIS PM CDT procedure are in the results section. BLOOD SMEAR CONSULT Routine 07/23/2018 5:19 Results for this PM CDT procedure are in the results section. MANUAL DIFFERENTIAL Routine 07/23/2018 5:19 Results for this PM CDT procedure are in the results section. ESTIMATED GFR STAT 07/23/2018 5:19 Results for this PM CDT procedure are in the results section. TROPONIN STAT 07/23/2018 5:19 Results for this PM CDT procedure are in the results section. URINALYSIS SCREEN AND STAT 07/23/2018 5:19 Results for this MICROSCOPY, WITH REFLEX PM CDT procedure are in TO CULTURE the results section. TYPE AND SCREEN Routine 07/23/2018 5:19 Results for this PM CDT procedure are in the results section. LIPASE LEVEL STAT 07/23/2018 5:19 Results for this PM CDT procedure are in the results section. AMYLASE LEVEL STAT 07/23/2018 5:19 Results for this PM CDT procedure are in the results section. COMPREHENSIVE METABOLIC STAT 07/23/2018 5:19 Results for this PANEL PM CDT procedure are in the results section. PARTIAL THROMBOPLASTIN STAT 07/23/2018 5:19 Results for this TIME (PTT) PM CDT procedure are in the results section. PROTHROMBIN TIME WITH STAT 07/23/2018 5:19 Results for this INR PM CDT procedure are in the results section. CBC WITH PLATELET AND Routine 07/23/2018 5:19 Results for this DIFFERENTIAL PM CDT procedure are in the results section. ECG 12-LEAD STAT 07/23/2018 5:09 Results for this PM CDT procedure are in the results section. ECG ED PRELIMINARY Routine 07/23/2018 5:06 Results for this INTERPRETATION PM CDT procedure are in the results section. after 07/31/2017 Results Estimated GFR (07/25/2018 5:05 AM)Only the most recent of3 resultswithin the time period is included. Estimated GFR 79 mL/min/1.73 m2 [facility] DEPARTMENT OF Comment: PATHOLOGY AND GENOMIC CatergoryUnitsInterpretation MEDICINE G1 >=90 Normal or high G2 60-89Mildly decreased V6x78-15[place] to moderately decreased [id number] to severely decreased G4 15-29Severely decreased G5 <15Kidney failure The eGFR was calculated using the Chronic Kidney Disease Epidemiology Collaboration (CKD-EPI) equation. Interpretation is based on recommendations of the National Kidney Foundation-Kidney Disease Outcomes Quality Initiative (NKF-KDOQI) published in 2014. Specimen Plasma specimen Performing Organization Address City/State/Zipcode Phone Number [facility] DEPARTMENT OF PATHOLOGY [address] [place] [address] AND GENOMIC MEDICINE Manual differential (07/25/2018 5:05 AM)Only the most recent of4 resultswithin the time period is included. Manual differential PERFORMED [facility] DEPARTMENT OF PATHOLOGY AND GENOMIC MEDICINE Neutrophils 1.0 (L) 39.0 - 69.0 % [facility] DEPARTMENT OF PATHOLOGY AND GENOMIC MEDICINE Lymphocytes 97.0 (H) 25.0 - 45.0 % [facility] DEPARTMENT OF PATHOLOGY AND GENOMIC MEDICINE Monocytes 0.0 0.0 - 10.0 % [facility] DEPARTMENT OF PATHOLOGY AND GENOMIC MEDICINE Eosinophils 1.0 0.0 - 5.0 % [facility] DEPARTMENT OF PATHOLOGY AND GENOMIC MEDICINE Basophils 0.0 0.0 - 1.0 % [facility] DEPARTMENT OF PATHOLOGY AND GENOMIC MEDICINE Myelocytes 1 % [facility] DEPARTMENT OF PATHOLOGY AND GENOMIC MEDICINE Platelet slide review Mkd decreased (A) [facility] DEPARTMENT OF PATHOLOGY AND GENOMIC MEDICINE Tear drop cells Occasional [facility] DEPARTMENT OF PATHOLOGY AND GENOMIC MEDICINE Ovalocytes Moderate [facility] DEPARTMENT OF PATHOLOGY AND GENOMIC MEDICINE Smudge cells Moderate (A) [facility] DEPARTMENT OF PATHOLOGY AND GENOMIC MEDICINE Performing Organization Address City/State/Zipcode Phone Number [facility] DEPARTMENT OF PATHOLOGY [address] [place] [address] AND GENOMIC MEDICINE CBC with platelet and differential (07/25/2018 5:05 AM)Only the most recent of4 resultswithin the time period is included. WBC 7.1 4.5 - 11.0 k/uL [facility] DEPARTMENT OF PATHOLOGY AND GENOMIC MEDICINE RBC 2.74 (L) 4.20 - 5.50 m/uL [facility] DEPARTMENT OF PATHOLOGY AND GENOMIC MEDICINE HGB 8.7 (L) 12.0 - 16.0 g/dL [facility] DEPARTMENT OF PATHOLOGY AND GENOMIC MEDICINE HCT 25.2 (L) 37.0 - 47.0 % [facility] DEPARTMENT OF PATHOLOGY AND GENOMIC MEDICINE MCV 92.0 82.0 - 100.0 fL [facility] DEPARTMENT OF PATHOLOGY AND GENOMIC MEDICINE MCH 31.8 27.0 - 34.0 pg [facility] DEPARTMENT OF PATHOLOGY AND GENOMIC MEDICINE MCHC 34.5 31.0 - 37.0 g/dL [facility] DEPARTMENT OF PATHOLOGY AND GENOMIC MEDICINE RDW - SD 47.2 37.0 - 55.0 fL [facility] DEPARTMENT OF PATHOLOGY AND GENOMIC MEDICINE MPV 10.4 6.9 - 11.0 fL [facility] DEPARTMENT OF PATHOLOGY AND GENOMIC MEDICINE Platelet count 35 (LL)Comment: Called 150 - 400 K/uL [facility] DEPARTMENT OF result with readback to PATHOLOGY AND GENOMIC Birdie Gotti/[address] [place] [address] 07/25/2018 06:39 Nucleated RBC 0.00 /100 WBC [facility] DEPARTMENT OF PATHOLOGY AND GENOMIC MEDICINE Neutrophils 1.0 (L) 39.0 - 69.0 % [facility] DEPARTMENT OF PATHOLOGY AND GENOMIC MEDICINE Lymphocytes 97.0 (H) 25.0 - 45.0 % [facility] DEPARTMENT OF PATHOLOGY AND GENOMIC MEDICINE Monocytes 0.0 0.0 - 10.0 % [facility] DEPARTMENT OF PATHOLOGY AND GENOMIC MEDICINE Eosinophils 1.0 0.0 - 5.0 % [facility] DEPARTMENT OF PATHOLOGY AND GENOMIC MEDICINE Basophils 0.0 0.0 - 1.0 % [facility] DEPARTMENT OF PATHOLOGY AND GENOMIC MEDICINE Specimen Blood Performing Organization Address City/[facility] Phone Number [facility] DEPARTMENT OF PATHOLOGY [address] [place] [address] [employer] [facility] Basic metabolic panel (07/25/2018 5:05 AM)Only the most recent of2 resultswithin the time period is included. Sodium 142 135 - 148 mEq/L [facility] DEPARTMENT OF PATHOLOGY AND GENOMIC MEDICINE Potassium 4.0 3.5 - 5.0 mEq/L [facility] DEPARTMENT OF PATHOLOGY AND GENOMIC MEDICINE Chloride 106 98 - 112 mEq/L [facility] DEPARTMENT OF PATHOLOGY AND GENOMIC MEDICINE CO2 24 24 - 31 mEq/L [facility] DEPARTMENT OF PATHOLOGY AND GENOMIC MEDICINE Anion gap 12@ANIO 7 - 15 mEq/L [facility] DEPARTMENT OF PATHOLOGY AND GENOMIC MEDICINE BUN 13 8 - 23 mg/dL [facility] DEPARTMENT OF PATHOLOGY AND GENOMIC MEDICINE Creatinine 0.78 0.50 - 0.90 mg/dL [facility] DEPARTMENT OF PATHOLOGY AND GENOMIC MEDICINE Glucose 88 65 - 99 mg/dL [facility] DEPARTMENT OF PATHOLOGY AND GENOMIC MEDICINE Calcium 9.2 8.8 - 10.2 mg/dL [facility] DEPARTMENT OF PATHOLOGY AND GENOMIC MEDICINE Specimen Plasma specimen Performing Organization Address [facility] Phone Number [facility] [address] [place] [address] [employer] [facility] CT Chest W Contrast Abdomen W Contrast Pelvis W Contrast (07/24/2018 5:35 PM) Narrative Performed At EXAMINATION:CT CHEST W CONTRAST ABDOMEN W CONTRAST PELVIS W CONTRAST RADIANT CLINICAL HISTORY:CLLlymphadenopathysplenomegaly. TECHNIQUE: Multiple axial images of the chest, abdomen, and pelvis were obtained following intravenous administration of iodinated contrast. Sagittal and coronal computerized reformatted images were obtained. Radiation dose reduction technique was utilized. COMPARISON:None. FINDINGS: Chest: 1. There are multiple enlarged lymph nodes in each axilla measuring in size up to 2.5 cm. 2.There are mildly prominent subcarinal lymph nodes. 3.There are no pleural or pericardial effusions. 4.No pulmonary infiltrates or nodules are noted. Abdomen: 1. The spleen is enlarged (15 cm). 2.There are enlarged retroperitoneal (2.6 cm), peripancreatic (3.0 cm), aortocaval (3.3 cm) and mesenteric lymph nodes (2.8 cm). There is also some more diffuse mesenteric edema. 3.No focal lesions are noted in the liver, pancreas, adrenal glands, or kidneys. Pelvis: 1. Bilateral inguinal adenopathy. Enlarged internal iliac nodes with the largest on the right measuring 5.2 cm. IMPRESSION: Splenomegaly with extensive axillary, mediastinal, retroperitoneal, mesenteric, inguinal, and iliac adenopathy. [id number] Procedure Note Interface, Radiology Results Incoming - 07/24/2018 6:06 PM CDT EXAMINATION: CT CHEST W CONTRAST ABDOMEN W CONTRAST PELVIS W CONTRAST CLINICAL HISTORY: CLL lymphadenopathy splenomegaly. TECHNIQUE: Multiple axial images of the chest, abdomen, and pelvis were obtained following intravenous administration of iodinated contrast. Sagittal and coronal computerized reformatted images were obtained. Radiation dose reduction technique was utilized. COMPARISON: None. FINDINGS: Chest: 1. There are multiple enlarged lymph nodes in each axilla measuring in size up to 2.5 cm. 2. There are mildly prominent subcarinal lymph nodes. 3. There are no pleural or pericardial effusions. 4. No pulmonary infiltrates or nodules are noted. Abdomen: 1. The spleen is enlarged (15 cm). 2. There are enlarged retroperitoneal (2.6 cm), peripancreatic (3.0 cm), aortocaval (3.3 cm) and mesenteric lymph nodes (2.8 cm). There is also some more diffuse mesenteric edema. 3. No focal lesions are noted in the liver, pancreas, adrenal glands, or kidneys. Pelvis: 1. Bilateral inguinal adenopathy. Enlarged internal iliac nodes with the largest on the right measuring 5.2 cm. IMPRESSION: Splenomegaly with extensive axillary, mediastinal, retroperitoneal, mesenteric , inguinal, and iliac adenopathy. [id number] Performing Organization Address City/State/Zipcode Phone Number [facility] [address] [place] [address] Transfuse RBC (07/24/2018 2:34 PM)Transfuse platelets (07/24/2018 3:29 AM) Only the most recent of3 resultswithin the time period is included.Total iron binding capacity (07/23/2018 10:40 PM) Iron level 219 (H) 37 - 145 ug/dL [facility] DEPARTMENT OF PATHOLOGY AND GENOMIC MEDICINE Iron binding capacity 250 (L) 260 - 460 ug/dL [facility] DEPARTMENT OF PATHOLOGY AND GENOMIC MEDICINE % Saturation 87.6 (H) 15.0 - 38.0 % [facility] DEPARTMENT OF PATHOLOGY AND GENOMIC MEDICINE Specimen Serum Performing Organization Address City/State/Zipcode Phone Number [facility] DEPARTMENT OF PATHOLOGY [address] [place] [address] AND [facility] Rapid HIV 1 & 2 (07/23/2018 10:40 PM) Rapid HIV 1 and 2 Non-Reactive Non-Reactive [facility] DEPARTMENT OF PATHOLOGY AND GENOMIC MEDICINE Specimen Blood Performing Organization Address City/[facility] Phone Number [facility] DEPARTMENT OF PATHOLOGY [address] [place] [address] AND [facility] Flow cytometry evaluation (07/23/2018 10:40 PM) [facility] DEPARTMENT OF PATHOLOGY AND GENOMIC MEDICINE Flow cytometry evaluation See link below for PDF [facility] DEPARTMENT OF Lab Report PATHOLOGY AND GENOMIC MEDICINE Specimen Blood Performing Organization Address City/[facility] Phone Number [facility] DEPARTMENT OF PATHOLOGY AND [address] [place] [id number] [place] [address] Hepatitis acute panel (07/23/2018 10:40 PM) Hepatitis A IgM Non-reactive Non-reactive [facility] DEPARTMENT OF PATHOLOGY AND GENOMIC MEDICINE Hepatitis B core IgM Non-reactive Non-reactive [facility] DEPARTMENT OF PATHOLOGY AND GENOMIC MEDICINE Hepatitis B surface Ag Non-reactive Non-reactive [facility] DEPARTMENT OF PATHOLOGY AND GENOMIC MEDICINE Hepatitis C Ab Non-reactive Non-reactive [facility] DEPARTMENT OF PATHOLOGY AND GENOMIC MEDICINE Specimen Serum Performing Organization Address City/[facility] Cent[facility] Phone Number [facility] DEPARTMENT OF PATHOLOGY AND [address] [place] [id number] [facility] Reticulocyte count (07/23/2018 10:40 PM) Retic %, auto 0.5 0.5 - 2.1 % [facility] DEPARTMENT OF PATHOLOGY AND GENOMIC MEDICINE Retic absolute, auto 0.0093 (L) 0.0210 - 0.1155 m/uL [facility] DEPARTMENT OF PATHOLOGY AND GENOMIC MEDICINE Specimen Blood Performing Organization Address City/State/Zipcode Phone Number [facility] DEPARTMENT OF PATHOLOGY [address] [place] [address] AND GENOMIC MEDICINE Immunofixation, serum (07/23/2018 10:40 PM) Immunofixation, serum SEE COMMENTComment: See [facility] DEPARTMENT OF electrophoresis report below. PATHOLOGY AND GENOMIC MEDICINE Specimen Serum Narrative Performed At [facility] by pathologist reviewing [facility] DEPARTMENT OF PATHOLOGY AND GENOMIC electrophoresis. MEDICINE Performing Organization Address City/State/Zipcode Phone Number [facility] DEPARTMENT OF PATHOLOGY AND [address] [place] [address] [facility] MEDICINE Serum electrophoresis (07/23/2018 10:40 PM) Protein 5.3 (L) 6.3 - 8.3 g/dL [facility] DEPARTMENT OF Comment: PATHOLOGY AND 4.6-7.0 g/dL GENOMIC MEDICINE 1 week 4.4-7.6 g/dL 7 months-1year5.1-7.3 g/dL 1-2 years5.6-7.5 g/dL >3 years6.0-8.0 g/dL 18-150 6.3-8.3 g/dL SPE albumin 3.31 (L) 4.00 - 5.30 g/dL [facility] DEPARTMENT OF PATHOLOGY AND GENOMIC MEDICINE SPE alpha 1 0.19 0.10 - 0.25 g/dL [facility] DEPARTMENT OF PATHOLOGY AND GENOMIC MEDICINE SPE alpha 2 0.56 (L) 0.58 - 0.84 g/dL [facility] DEPARTMENT OF PATHOLOGY AND GENOMIC MEDICINE SPE beta 0.69 0.50 - 1.10 g/dL [facility] DEPARTMENT OF PATHOLOGY AND GENOMIC MEDICINE SPE gamma 0.56 (L) 0.60 - 1.30 g/dL [facility] DEPARTMENT OF PATHOLOGY AND GENOMIC MEDICINE SPE extended See Comment [facility] DEPARTMENT OF interpretation Comment: PATHOLOGY AND Abnormal serum protein study due to the presence of a band in the gamma GENOMIC MEDICINE region that immunofixes as monoclonal IgG Lambda. This band is present at a concentration of 0.2 g/dL. Uninvolved gamma globulins are moderately decreased in an acute phase background. Alpha-2 globulins are decreased most likely due to decreased haptoglobin and/or alpha-2 macroglobulin. 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 MEDICINE Performing Organization Address City/State/Zipcode Phone Number [facility] DEPARTMENT OF PATHOLOGY AND [address] [place] [address] MEDICINE LDH (07/23/2018 10:40 PM) LDH 129 87 - 225 U/L [facility] DEPARTMENT OF PATHOLOGY AND GENOMIC MEDICINE Specimen Serum Performing Organization Address City/State/Zipcode Phone Number [facility] DEPARTMENT OF PATHOLOGY [address] [place] [address] AND [facility] MEDICINE Haptoglobin (07/23/2018 10:40 PM) Haptoglobin 133 30 - 200 mg/dL [facility] DEPARTMENT OF PATHOLOGY AND GENOMIC MEDICINE Specimen Plasma specimen Performing Organization Address City/[facility]/Zipcode Phone Number [facility] DEPARTMENT OF PATHOLOGY AND [address] [place] [address] MEDICINE Immunoglobulin A (07/23/2018 10:40 PM) IgA 77 70 - 400 mg/dL [facility] DEPARTMENT OF PATHOLOGY AND GENOMIC MEDICINE Specimen Plasma specimen Narrative Performed At [facility] add by pathologist reviewing [facility] DEPARTMENT OF PATHOLOGY AND GENOMIC electrophoresis. MEDICINE Performing Organization Address City/[facility] Phone Number [facility] DEPARTMENT OF PATHOLOGY AND [address] [place], [place] [id number] GENOMIC MEDICINE Immunoglobulin M (07/23/2018 10:40 PM) IgM <25 (L) 33 - 255 mg/dL [facility] DEPARTMENT OF PATHOLOGY AND GENOMIC MEDICINE Specimen Plasma specimen Performing Organization Address City/[facility]/Zipcode Phone Number [facility] DEPARTMENT OF PATHOLOGY AND [address] [place], [place] [id number] GENOMIC MEDICINE Immunoglobulin G (07/23/2018 10:40 PM) IgG 704 700 - 1,600 mg/dL [facility] DEPARTMENT OF PATHOLOGY AND GENOMIC MEDICINE Specimen Plasma specimen Narrative Performed At MARY add by pathologist reviewing [facility] DEPARTMENT OF PATHOLOGY AND GENOMIC electrophoresis. MEDICINE Performing Organization Address City/State/Zipcode Phone Number [facility] DEPARTMENT OF PATHOLOGY AND [address] [place] [address] [facility] Folate RBC (group test) (07/23/2018 10:40 PM) RBC folate 1,451 499 - 1,504 ng/mL [facility] DEPARTMENT OF PATHOLOGY AND GENOMIC MEDICINE Specimen Blood Performing Organization Address [facility] Phone Number [facility] DEPARTMENT OF PATHOLOGY AND [address] [place] [id number] [facility] Ferritin level (07/23/2018 10:40 PM) Ferritin level 1,045 (H) 13 - 150 ng/mL [facility] DEPARTMENT OF PATHOLOGY AND GENOMIC MEDICINE Specimen Plasma specimen Performing Organization Address [facility] Centercode Phone Number [facility] DEPARTMENT OF PATHOLOGY AND [address] [place] [id number] [place] [address] Vitamin B12 level (07/23/2018 10:40 PM) Vitamin B12 227 211 - 946 pg/mL [facility] DEPARTMENT OF PATHOLOGY Comment: AND GENOMIC MEDICINE Significant overlap exists between normal and deficiency states. However, most patients with deficiencies will have Serum B12 <200 pg/mL. Specimen Serum Performing Organization Address [facility] Centercooh Phone Number [facility] DEPARTMENT OF PATHOLOGY AND [address] [place], [place] [phone] [facility] XR Chest 1 Vw (07/23/2018 7:27 PM) Narrative Performed At EXAMINATION: XR CHEST 1 VW [facility] INDICATION: Coughpersistent COMPARISON: None IMPRESSION: No discrete airspace disease or pulmonary edema. Right hemidiaphragmatic eventration. No pleural effusion or pneumothorax. Cardiomediastinal silhouette within normal limits for portable technique. Probable aortic calcifications. Spondylosis. Severe left shoulder osteoarthritis. [facility]-[id number] Procedure Note Interface, Radiology Results Incoming - 07/23/2018 7:44 PM CDT EXAMINATION: XR CHEST 1 VW INDICATION: Cough persistent COMPARISON: None IMPRESSION: No discrete airspace disease or pulmonary edema. Right hemidiaphragmatic eventration. No pleural effusion or pneumothorax. Cardiomediastinal silhouette within normal limits for portable technique. Probable aortic calcifications. Spondylosis. Severe left shoulder osteoarthritis. [facility]-[id number] Performing Organization Address [facility]/Zipcode Phone Number [facility] [address] [place] [phone] Direct Vaughn' (DEMAR) (07/23/2018 5:21 PM) [id number] Polyspecific NEG [facility] DEPARTMENT OF PATHOLOGY AND GENOMIC MEDICINE IgG Vaughn, gel NEG [facility] DEPARTMENT OF PATHOLOGY AND GENOMIC MEDICINE Anti-complement NEG [facility] DEPARTMENT OF PATHOLOGY AND GENOMIC MEDICINE Specimen Blood Performing Organization Address [facility]ercode Phone Number [facility] DEPARTMENT OF PATHOLOGY [address] [place] [address]. [place] [address] AND [facility] Urine culture (07/23/2018 5:21 PM) Urine culture SEE COMMENTComment: Bacteriuria [facility] DEPARTMENT OF PATHOLOGY screen negative. AND GENOMIC MEDICINE Performing Organization Address [facility] Centercode Phone Number [facility] DEPARTMENT OF PATHOLOGY [address] [place] [address] AND [facility] Urinalysis screen and microscopy, with reflex to culture (07/23/2018 5:19 PM) Specimen site Clean catch [facility] DEPARTMENT OF PATHOLOGY AND GENOMIC MEDICINE Color, UA Straw [facility] DEPARTMENT OF PATHOLOGY AND GENOMIC MEDICINE Appearance, UA Clear [facility] DEPARTMENT OF PATHOLOGY AND GENOMIC MEDICINE Specific gravity, UA 1.009 1.001 - 1.030 [facility] DEPARTMENT OF PATHOLOGY AND GENOMIC MEDICINE pH, UA 7.0 5.0 - 9.0 [facility] DEPARTMENT OF PATHOLOGY AND GENOMIC MEDICINE Protein, UA Negative Negative [facility] DEPARTMENT OF PATHOLOGY AND GENOMIC MEDICINE Glucose, UA Negative Negative [facility] DEPARTMENT OF PATHOLOGY AND GENOMIC MEDICINE Ketones, UA Negative Negative [facility] DEPARTMENT OF PATHOLOGY AND GENOMIC MEDICINE Bilirubin, UA Negative Negative [facility] DEPARTMENT OF PATHOLOGY AND GENOMIC MEDICINE Blood, UA Negative Negative [facility] DEPARTMENT OF PATHOLOGY AND GENOMIC MEDICINE Nitrite, UA Negative Negative [facility] DEPARTMENT OF PATHOLOGY AND GENOMIC MEDICINE Urobilinogen, UA <2.0 <2.0 E.U./dL [facility] DEPARTMENT OF PATHOLOGY AND GENOMIC MEDICINE Leukocyte esterase, UA Negative Negative [facility] DEPARTMENT OF PATHOLOGY AND GENOMIC MEDICINE Epithelial cells, UA <1 /HPF [facility] DEPARTMENT OF PATHOLOGY AND GENOMIC MEDICINE WBC, UA 1 0 - 4 /HPF [facility] DEPARTMENT OF PATHOLOGY AND GENOMIC MEDICINE RBC, UA <1 0 - 5 /HPF [facility] DEPARTMENT OF PATHOLOGY AND GENOMIC MEDICINE Bacteria, UA None seen None seen [facility] DEPARTMENT OF PATHOLOGY AND GENOMIC MEDICINE Yeast, UA None seen [facility] DEPARTMENT OF PATHOLOGY AND GENOMIC MEDICINE Yeast with pseudohyphae, UA None seen [facility] DEPARTMENT OF PATHOLOGY AND GENOMIC MEDICINE Specimen Urine Performing Organization Address [facility] Centercode Phone Number [facility] DEPARTMENT OF PATHOLOGY [id number] [place] [address]. [place] [address] AND [employer] MEDICINE Blood smear consult (07/23/2018 5:19 PM) Blood smear consult Footnote [facility] DEPARTMENT OF Comment: PATHOLOGY AND GENOMIC Increase in Lymphocytes and increase in smudged lymphocytes, MEDICINE Thrombocytopenia, called to Abril Morrisseyt112:00. History of CLL.Slide reviewed by pathologist, Dr. Higgins. Performing Organization Address City/State/Zipcode Phone Number [facility] DEPARTMENT OF PATHOLOGY [address] [place] [address]. [place] [address] AND [employer] MEDICINE Troponin (07/23/2018 5:19 PM) Troponin <0.30 0.00 - 0.30 ng/mL [facility] DEPARTMENT OF PATHOLOGY Comment: AND GENOMIC MEDICINE 0.11 - 1.49 ng/mlMay indicate increased risk of acute coronary syndrome. >=1.5 ng/mlConsistent with acute myocardial infarction. The diagnostic value of a single normal or non-diagnostic result is questionable.Serial samples at 2-6 hour intervals are required to rule out acute myocardial injury. Specimen Plasma specimen Performing Organization Address City/State/Zipcode Phone Number [facility] DEPARTMENT OF PATHOLOGY [address] [place] [address]. [place] [address] AND [employer] [facility] Prepare platelet pheresis, 2 Units (07/23/2018 5:19 PM) Product name Apheresis Platelet Leukored [facility] DEPARTMENT OF #2 PATHOLOGY AND GENOMIC MEDICINE Unit number [id number] [facility] DEPARTMENT OF PATHOLOGY AND GENOMIC MEDICINE Product code [id number] [facility] DEPARTMENT OF PATHOLOGY AND GENOMIC MEDICINE Dispense status Transfused [facility] DEPARTMENT OF PATHOLOGY AND GENOMIC MEDICINE Blood expiration date [facility] DEPARTMENT OF PATHOLOGY AND GENOMIC MEDICINE Blood type code 7300 [facility] DEPARTMENT OF PATHOLOGY AND GENOMIC MEDICINE Blood type B POSITIVE [facility] DEPARTMENT OF PATHOLOGY AND GENOMIC MEDICINE Product name Platelets, Aph#2 LR Path [facility] DEPARTMENT OF Inactiv PATHOLOGY AND GENOMIC MEDICINE Unit number [id number] [facility] DEPARTMENT OF PATHOLOGY AND GENOMIC MEDICINE Product code [id number] [facility] DEPARTMENT OF PATHOLOGY AND GENOMIC MEDICINE Dispense status Transfused [facility] DEPARTMENT OF PATHOLOGY AND GENOMIC MEDICINE Blood expiration date [facility] DEPARTMENT OF PATHOLOGY AND GENOMIC MEDICINE Blood type code 7300 [facility] DEPARTMENT OF PATHOLOGY AND GENOMIC MEDICINE Blood type B POSITIVE [facility] DEPARTMENT OF PATHOLOGY AND GENOMIC MEDICINE Performing Organization Address [facility] Centercode Phone Number [facility] DEPARTMENT OF PATHOLOGY [address] [place] [address] AND [employer] [facility] Partial thromboplastin time, activated (07/23/2018 5:19 PM) PTT 28.2 23.0 - 36.0 sec [facility] DEPARTMENT OF Comment: PATHOLOGY AND GENOMIC PTT therapeutic range for unfractionated heparin is MEDICINE 61.0-112.0 seconds which corresponds to Anti-Xa 0.3-0.7 U/ml. Specimen Blood Performing Organization Address City/[facility]/Zipcode Phone Number [facility] DEPARTMENT OF PATHOLOGY [address] [place] [address] AND [facility] Prothrombin time with INR (07/23/2018 5:19 PM) Prothrombin time 13.2 12.0 - 15.0 sec [facility] DEPARTMENT OF PATHOLOGY AND GENOMIC MEDICINE INR 1.0 [facility] DEPARTMENT OF Comment: PATHOLOGY AND GENOMIC The International Normalized Ratio (INR) is a therapeutic MEDICINE monitoring tool for patients who are stable on oral anticoagulant therapy. An INR of 2.0-3.0 is suggested for deep vein thrombosis/pulmonary embolism. Specimen Blood Performing Organization Address [facility]ercode Phone Number [facility] DEPARTMENT OF PATHOLOGY [address] [place] [address] AND [employer] [facility] Prepare RBC, 2 Units (07/23/2018 5:19 PM) Product name Red Blood Cells -1, [facility] DEPARTMENT OF Leukored PATHOLOGY AND GENOMIC MEDICINE Unit number [id number] [facility] DEPARTMENT OF PATHOLOGY AND GENOMIC MEDICINE Product code [id number] [facility] DEPARTMENT OF PATHOLOGY AND GENOMIC MEDICINE Dispense status Transfused [facility] DEPARTMENT OF PATHOLOGY AND GENOMIC MEDICINE Blood expiration date [facility] DEPARTMENT OF PATHOLOGY AND GENOMIC MEDICINE Blood type code 8400 [facility] DEPARTMENT OF PATHOLOGY AND GENOMIC MEDICINE Blood type AB POSITIVE [facility] DEPARTMENT OF PATHOLOGY AND GENOMIC MEDICINE Product name Red Blood Cells -1, [facility] DEPARTMENT OF Leukored PATHOLOGY AND GENOMIC MEDICINE Unit number [id number] [facility] DEPARTMENT OF PATHOLOGY AND GENOMIC MEDICINE Product code [id number] [facility] DEPARTMENT OF PATHOLOGY AND GENOMIC MEDICINE Dispense status Transfused [facility] DEPARTMENT OF PATHOLOGY AND GENOMIC MEDICINE Blood expiration date [facility] DEPARTMENT OF PATHOLOGY AND GENOMIC MEDICINE Blood type code 8400 [facility] DEPARTMENT OF PATHOLOGY AND GENOMIC MEDICINE Blood type AB POSITIVE [facility] DEPARTMENT OF PATHOLOGY AND GENOMIC MEDICINE Performing Organization Address City/[facility]/Zipcode Phone Number [facility] DEPARTMENT OF PATHOLOGY [address] [place] [address] AND GENOMIC MEDICINE Type and screen (07/23/2018 5:19 PM) ABO grouping AB [facility] DEPARTMENT OF PATHOLOGY AND GENOMIC MEDICINE Rh type POS [facility] DEPARTMENT OF PATHOLOGY AND GENOMIC MEDICINE Antibody screen (gel) NEG [facility] DEPARTMENT OF PATHOLOGY AND GENOMIC MEDICINE Specimen Blood Performing Organization Address City/[facility]/Zipcode Phone Number [facility] DEPARTMENT OF PATHOLOGY [address] [place] [address] AND [facility] Lipase level (07/23/2018 5:19 PM) Lipase 25 13 - 60 U/L [facility] DEPARTMENT OF PATHOLOGY AND GENOMIC MEDICINE Specimen Plasma specimen Performing Organization Address City/[facility] Phone Number [facility] DEPARTMENT OF PATHOLOGY [address] [place] [address] AND [facility] Amylase level (07/23/2018 5:19 PM) Amylase 15 13 - 73 U/L [facility] DEPARTMENT OF PATHOLOGY AND GENOMIC MEDICINE Specimen Plasma specimen Performing Organization Address City/[facility]ercode Phone Number [facility] DEPARTMENT OF PATHOLOGY [address] [place] [address]. [place] [address] AND [facility] Comprehensive metabolic panel (07/23/2018 5:19 PM) Sodium 139 135 - 148 mEq/L [facility] DEPARTMENT OF PATHOLOGY AND GENOMIC MEDICINE Potassium 3.9 3.5 - 5.0 mEq/L [facility] DEPARTMENT OF PATHOLOGY AND GENOMIC MEDICINE Chloride 103 98 - 112 mEq/L [facility] DEPARTMENT OF PATHOLOGY AND GENOMIC MEDICINE CO2 26 24 - 31 mEq/L [facility] DEPARTMENT OF PATHOLOGY AND GENOMIC MEDICINE Anion gap 10@ANIO 7 - 15 mEq/L [facility] DEPARTMENT OF PATHOLOGY AND GENOMIC MEDICINE BUN 17 8 - 23 mg/dL [facility] DEPARTMENT OF PATHOLOGY AND GENOMIC MEDICINE Creatinine 0.83 0.50 - 0.90 mg/dL [facility] DEPARTMENT OF PATHOLOGY AND GENOMIC MEDICINE Glucose 124 (H) 65 - 99 mg/dL [facility] DEPARTMENT OF PATHOLOGY AND GENOMIC MEDICINE Calcium 9.2 8.8 - 10.2 mg/dL [facility] DEPARTMENT OF PATHOLOGY AND GENOMIC MEDICINE Protein 6.6 6.3 - 8.3 g/dL [facility] DEPARTMENT OF PATHOLOGY AND GENOMIC MEDICINE Albumin 3.8 3.5 - 5.0 g/dL [facility] DEPARTMENT OF PATHOLOGY AND GENOMIC MEDICINE A/G ratio 1.4 0.7 - 3.8 [facility] DEPARTMENT OF PATHOLOGY AND GENOMIC MEDICINE Alkaline phosphatase 72 35 - 104 U/L [facility] DEPARTMENT OF PATHOLOGY AND GENOMIC MEDICINE AST 16 10 - 35 U/L [facility] DEPARTMENT OF PATHOLOGY AND GENOMIC MEDICINE ALT 11 5 - 50 U/L [facility] DEPARTMENT OF PATHOLOGY AND GENOMIC MEDICINE Total bilirubin <0.2 0.2 - 1.2 mg/dL [facility] DEPARTMENT OF PATHOLOGY AND GENOMIC MEDICINE Specimen Plasma specimen Performing Organization Address City/[facility] Centercode Phone Number [facility] DEPARTMENT OF PATHOLOGY [address] [place] [address] AND [employer] MEDICINE ECG 12 lead (07/23/2018 5:09 PM) Ventricular rate 76 [facility] Atrial rate 76 [facility] NV interval 156 [facility] QRSD interval 82 [facility] QT interval 366 [facility] QTC interval 411 [facility] P axis 1 2 [facility] QRS axis 1 32 [facility] T wave axis 20 [facility] EKG impression Normal sinus rhythm-Cannot rule out Anterior [facility] MUSE infarct , age undetermined-Abnormal ECG-No previous ECGs available- Performing Organization Address [facility] Centercooh Phone Number [facility] MUSE [address] [place] [address] ECG ED Preliminary Interpretation - NOT AN ORDER (07/23/2018 5:06 PM) Narrative Performed At Don Lion MD 07/25/2018 12:49 AM ECG ED Preliminary Interpretation - Not an Order Performed by: DON LION Authorized by: DON LION ECG reviewed by ED Physician in the absence of a sfdc technical architect: yes Interpretation: Interpretation: normal Rate: ECG rate assessment: normal Rhythm: Rhythm: sinus rhythm Ectopy: Ectopy: none QRS: QRS axis:Normal QRS intervals:Normal Conduction: Conduction: normal ST segments: ST segments:Normal T waves: T waves: normal after 07/31/2017 Insurance Payer Benefit Plan / Group Subscriber ID Type Phone Address [employer] xxxxxxxx HMO Home: [phone] [place] [phone]
[2018-08-01 17:37] LABS: Absolute Lymphocytes (CBC) 3.8 K/uL (0.7-4.9); Absolute Neutrophil 0.1 K/uL (1.8-8.0); Basophils % 0.1 % (0-1.3); Eosinophils % 0.1 % (0-4.4); Lymphocytes % 95.6 % (15.3-44.8); MPV 8.9 fL (7.6-11.3); Monocytes % 0.5 % (3.3-12.3); RBC Red Blood Cell Count 1.65 M/uL (3.86-4.86)
[2018-08-01] MEDS ORDERED: ONDANSETRON 4 MG/2 ML VIAL ONE (17:41)
[2018-08-01] MEDS ORDERED: MORPHINE 4 MG/ML SYR ONE (17:41)
[2018-08-01] MEDS ORDERED: FENTANYL CITR 100 MCG/2 ML ONE ×2 (17:49→20:34)
[2018-08-01 18:01] LABS: ALT/SGPT 15 U/L (12-78); AST/SGOT 14 U/L (15-37); Alkaline Phosphatase 82 U/L (45-117); BUN Blood Urea Nitrogen 14 mg/dL (7-18); Bicarbonate 30 mmol/L (21-32); Bilirubin Direct < 0.1 mg/dL (0-0.2); Bilirubin Total 0.2 mg/dL (0.2-1.0); Glucose Level 106 mg/dL (74-106); Lipase 108 U/L (73-393); Magnesium 2.3 mg/dL (1.8-2.4); Potassium 3.9 mmol/L (3.5-5.1); Protein, Total 6.4 g/dL (6.4-8.2); Sodium Level 138 mmol/L (136-145)
--- NOTE | 2018-08-01 18:40 | RAD REPORT ---
EXAM DESCRIPTION: CTAbdomen Pelvis W Contrast - 08/01/2018 6:23 pm CLINICAL HISTORY: Abdominal pain. rectal pain, rectal abscess COMPARISON: Abdomen Pelvis W Contrast dated 07/08/2018; Abdomen Pelvis W Contrast dated 01/22/2018 ; Abdomen Pelvis W Contrast dated 07/13/2017; Abdomen Pelvis W Contrast dated 03/16/2017 TECHNIQUE: Biphasic CT imaging of the abdomen and pelvis was performed with 100 ml non-ionic IV cont rast. All CT scans are performed using dose optimization technique as appropriate and may include automated exposure control or mA/KV adjustment according to patient size. FINDINGS: The lung bases are clear. Mild diffuse fatty liver is present. The spleen is mildly enlarged in size. The adrenal glands and pa ncreas are unremarkable. Mild bilateral hydronephrosis is again noted, mildly improved. No focal kathi l mass is present. Bulky lymphadenopathy at the gastrohepatic ligament, root of the small bowel mesentery, small bowel m esentery, retroperitoneum, bilateral inguinal region and pelvic sidewall again noted mildly increased since 07/08/2018 study. No bowel obstruction, free air, free fluid or abscess. Mild rectal mucosal thickening is seen without evidence of perirectal abscess. The appendix is not identified as a discrete structure, however, no secondary findings of appendicitis are identified. No suspicious bony findings. L4-5 spondylosis. IMPRESSION: Mild progression in intra-abdominal and intrapelvic lymphadenopathy. Mild proctitis is suspected without evidence of a perirectal abscess.
--- NOTE | 2018-08-01 20:25 | ER ---
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 Then I saw my oil rag washer and she said that I have a perianal abscess and I need to see a general surgeon. I was running fever all day yesterday." Reports TMax of 100.0. Transition of care: patient was not received from another setting of care. Onset of symptoms was August 01, 2018. Risk Assessment: Do you want to hurt yourself or someone else? Patient reports no desire to harm self or others. Initial Sepsis Screen: Does the patient meet any 2 criteria? No. Patient's initial sepsis screen is negative. Does the patient have a suspected source of infection? Yes: Skin breakdown/wound. Care prior to arrival: None. 16:26 Method Of Arrival: Ambulatory aj1 16:26 Acuity: ARNOLD 3 aj1 Triage Assessment: 16:29 General: Appears in no apparent distress. uncomfortable, Behavior is calm, cooperative, aj1 appropriate for age. Pain: Complains of pain in gluteal cleft Pain currently is 6 out of 10 on a pain scale. Neuro: Level of Consciousness is awake, alert, obeys commands. Cardiovascular: Patient's skin is warm and dry. Respiratory: Airway is patent Respiratory effort is even, unlabored, Respiratory pattern is regular, symmetrical. Historical: - Allergies: 16:29 PENICILLINS; aj1 16:29 Prednisone; aj1 16:29 ceftriaxone; aj1 - Home Meds: 16:29 Protonix 40 mg Oral grps 1 packet once daily [Active]; tramadol 50 mg Oral tab 1 tab aj1 every 6 hours [Active]; Colace 50 mg oral cap 1 cap once daily [Active]; multivitamin Oral tab daily [Active]; - PMHx: 16:29 Anemia; CLL; Pulmonary Embolism; UTI; aj1 - Immunization history:: Flu vaccine is not up to date. - Social history:: Smoking status: Patient/guardian denies using tobacco. - Ebola Screening: : Patient denies travel to an Ebola-affected area in the 21 days before illness onset. Screenin:51 Abuse screen: Denies threats or abuse. Denies injuries from another. Nutritional sv screening: No deficits noted. Tuberculosis screening: No symptoms or risk factors identified. Fall Risk None identified. Assessment: 17:00 General: Appears in no apparent distress. uncomfortable, obese, well developed, sv Behavior is calm, cooperative, appropriate for age. Pain: Complains of pain in gluteal cleft and anus Pain currently is 10 out of 10 on a pain scale. Pain began "couple of weeks ago" Is continuous. Neuro: Level of Consciousness is awake, alert, obeys commands, Oriented to person, place, time, situation, Moves all extremities. Full function. Neuro: Reports dizziness. Respiratory: Respiratory effort is even, unlabored, Respiratory pattern is regular, symmetrical. Derm: Skin is pale, Abscess located on anus has no drainage, is red, is raised, 2 sites noted that have opened on their own per pt. Pt stated she was in [place] about 2 weeks ago for a blood and platelet transfusion and said that her buttocks were hurting at that time. Since being discharged from there they ended up opening and there was drainage that she noticed on the pad that she wears. Musculoskeletal: No signs and/or symptoms reported regarding the musculoskeletal system. 17:56 Reassessment: Patient appears in no apparent distress at this time. Patient and/or sv family updated on plan of care and expected duration. Pain level reassessed. Patient is alert, oriented x 3, equal unlabored respirations, skin warm/dry/pink. 18:20 Reassessment: Patient appears in no apparent distress at this time. Patient and/or sv family updated on plan of care and expected duration. Pain level reassessed. Patient is alert, oriented x 3, equal unlabored respirations, skin warm/dry/pink. 19:15 Reassessment: patient assisted to bedside commode urinate, yellowish clear urine. rr5 reported a little bit dizzy but tolerated well. 19:15 Neuro: No deficits noted. Level of Consciousness is awake, alert, obeys commands. rr5 Cardiovascular:. Cardiovascular: No deficits noted. Respiratory: No deficits noted. GI: No signs and/or symptoms were reported involving the gastrointestinal system. : No signs and/or symptoms were reported regarding the genitourinary system. EENT: No signs and/or symptoms were reported regarding the EENT system. Derm: Skin is intact, Skin is dry, Skin is pale, Skin temperature is warm. Musculoskeletal: Circulation, motion, and sensation intact. 20:45 Reassessment: Dr. Gore at bedside. lp1 21:54 Reassessment: 6 units of platelet concentrate finished. no reaction reported. patient rr5 informed about the admission and agreed. Vital Signs: 16:29 BP 152 / 71; Pulse 72; Resp 20; Temp 98.4(O); Pulse Ox 95% on R/A; Weight 90.26 kg (R); aj1 Height 5 ft. 3 in. (160.02 cm) (R); 17:35 BP 106 / 62; Pulse 71; Resp 18; Pulse Ox 100% on R/A; sv 18:00 BP 109 / 60; Pulse 70; Resp 16; Pulse Ox 98% on R/A; sv 18:49 BP 111 / 58; Pulse 66; Resp 16; Pulse Ox 95% ; sv 19:30 BP 115 / 60; Pulse 67; Resp 14; Pulse Ox 97% on R/A; rr5 20:30 BP 133 / 62; Pulse 70; Resp 12; Temp 98.8(O); Pulse Ox 98% on R/A; rr5 20:55 rr5 21:25 BP 109 / 67; Pulse 63; Resp 12; Temp 98.7(O); Pulse Ox 98% on R/A; rr5 16:29 Body Mass Index 35.25 (90.26 kg, 160.02 cm) aj1 17:35 Informed Javed MCGINNIS of vitals, pain medication to be changed to fentanyl sv 20:55 see transfusion rcord for further vitals. rr5 ED Course: 16:24 Patient arrived in ED. as 16:24 Edith Miller is Private Physician. as 16:28 Triage completed. aj1 16:29 Arm band placed on Patient placed in an exam room. aj1 16:39 Javed Benedict PA is PHCP. cp 16:43 Santa Ugarte, HARLEY is Primary Nurse. sv 16:44 Benedicto Garcia MD is Attending Physician. cp 16:51 Patient has correct armband on for positive identification. Bed in low position. Door sv closed. Head of bed elevated. 17:00 Served as a shipping and receiving material handler during rectal exam. sv 17:08 Radiology exam delayed due to lab results not completed at this time. (BUN/Creatinine). vm2 17:10 Initial lab(s) drawn, by me, sent to lab. First set of blood cultures drawn by me. sv Second set of blood cultures drawn by me, Wound culture swab sent to lab. Inserted saline lock: 20 gauge in right forearm, using aseptic technique. Blood collected. Flushed right forearm with 5 ml normal saline. 17:21 Radiology exam delayed due to lab results not completed at this time. (BUN/Creatinine). sj 17:47 Radiology exam delayed due to lab results not completed at this time. (BUN/Creatinine). sj 17:51 Warm blanket given. Pillow given. sv 17:55 EKG done, by hvac service technician. reviewed by Javed MCGINNIS. sm3 18:[address] via stretcher. nj 18:24 CT Abd/Pelvis - W/Contrast: no oral contrast In Process Unspecified. EDMS 19:02 Report given to Sapphire SOUZA. sv 19:03 Primary Nurse role handed off by Santa Ugarte RN sv 19:52 Jeronimo Montilla, HARLEY is Primary Nurse. rr5 20:00 Consent for blood and/or blood product transfusion explained by staff, signed by rr5 patient, consent signed for 2 units PRBC and 6 units platelet concentrate.. 20:24 Anson Li MD is Hospitalizing Provider. cp 21:43 Patient admitted, IV remains in place. rr5 Administered Medications: 17:36 Drug: Zofran 4 mg Route: IVP; Site: right forearm; sv 18:00 Follow up: Response: No adverse reaction sv 17:45 Drug: fentaNYL (PF) 25 mcg Route: IVP; Site: right forearm; sv 18:00 Follow up: Response: No adverse reaction sv 17:49 Not Given (order changed): morphine 2 mg IVP once sv 20:39 Drug: fentaNYL (PF) 25 mcg Route: IVP; Site: right forearm; lp1 22:00 Follow up: Response: No adverse reaction rr5 20:39 Drug: Benadryl 25 mg Route: PO; lp1 22:00 Follow up: Response: No adverse reaction rr5 Output: 19:15 Urine: 500ml (Voided); Total: 500ml. rr5 Outcome: 20:25 Decision to Hospitalize by Provider. cp 21:43 Condition: stable rr5 21:43 Instructed on the need for admit. 21:53 Admitted to Med/surg via stretcher, room 229, with chart, Report called to staff nurse rr5 carmi 22:05 Patient left the ED. rr5 Signatures: Dispatcher [employer] EDMS Jennifer Farfan, RN RN aj1 Santa Ugarte RN RN Nikole Marsh Amelia as Pena, Laura, RN RN lp1 Javed Benedict PA PA cp Jordan, Gema Rebolledo Dona Lundy 3 Jeronimo Montilla RN RN rr5 Corrections: (The following items were deleted from the chart) 20:19 20:00 Consent for blood and/or blood product transfusion explained by staff, signed by rr5 patient, consent signed for 2 units PRBC and 6 units FFP.. rr5
--- NOTE | 2018-08-01 20:25 | EDPHYS ---
Physician Documentation [facility] Name: Lisy Betts Age: 68 yrs Sex: Female : 1950 Arrival Date: 08/01/2018 Time: 16:24 Bed 5 Private MD: Edith Miller ED Physician Benedicto Garcia HPI: 08/01 17:10 This 68 yrs old Female presents to ER via Ambulatory with complaints of cp Abnormal Lab Results, Perineal Abscess. 17:10 The patient presents to the emergency department with pain in the rectal area, that is cp moderate, possible abscess. 17:10 Onset: The symptoms/episode began/occurred today. chronic anemia with low H/H and cp platelet count. Associate signs and symptoms: Pertinent negatives: abdominal pain, diarrhea, fever, lower GI bleeding, chest pain. Historical: - Allergies: 16:29 PENICILLINS; aj1 16:29 Prednisone; aj1 16:29 ceftriaxone; aj1 - Home Meds: 16:29 Protonix 40 mg Oral grps 1 packet once daily [Active]; tramadol 50 mg Oral tab 1 tab aj1 every 6 hours [Active]; Colace 50 mg oral cap 1 cap once daily [Active]; multivitamin Oral tab daily [Active]; - PMHx: 16:29 Anemia; CLL; Pulmonary Embolism; UTI; aj1 - Immunization history:: Flu vaccine is not up to date. - Social history:: Smoking status: Patient/guardian denies using tobacco. - Ebola Screening: : Patient denies travel to an Ebola-affected area in the 21 days before illness onset. ROS: 17:15 Constitutional: Negative for body aches, chills, fever, poor PO intake. cp 17:15 Eyes: Negative for injury, pain, redness, and discharge. cp 17:15 ENT: Negative for drainage from ear(s), ear pain, sore throat, difficulty swallowing, difficulty handling secretions. 17:15 Cardiovascular: Negative for chest pain, edema, palpitations. 17:15 Respiratory: Negative for cough, shortness of breath, wheezing. 17:15 Abdomen/GI: Positive for rectal pain, Negative for abdominal pain, nausea, vomiting, and diarrhea, constipation, black/tarry stool, rectal bleeding. 17:15 Back: Negative for pain at rest, pain with movement, radiated pain. 17:15 : Negative for urinary symptoms, vaginal bleeding, vaginal discharge. 17:15 Neuro: Negative for altered mental status, headache, syncope, near syncope, weakness. 17:15 All other systems are negative. Exam: 17:22 Constitutional: The patient appears in no acute distress, alert, awake, cp non-diaphoretic, non-toxic, well developed, well nourished. 17:22 Head/Face: Normocephalic, atraumatic. cp 17:22 Eyes: Pupils equal round and reactive to light, extra-ocular motions intact. Lids and lashes normal. Conjunctiva and sclera are non-icteric and not injected. Cornea within normal limits. Periorbital areas with no swelling, redness, or edema. ENT: Nares patent. No nasal discharge, no septal abnormalities noted. Tympanic membranes are normal and external auditory canals are clear. Oropharynx with no redness, swelling, or masses, exudates, or evidence of obstruction, uvula midline. Mucous membranes moist. Chest/axilla: Normal chest wall appearance and motion. Nontender with no deformity. No lesions are appreciated. 17:22 Cardiovascular: Rate: normal, Rhythm: regular, Edema: is not appreciated, JVD: is not appreciated. 17:22 Respiratory: the patient does not display signs of respiratory distress, Respirations: normal, no use of accessory muscles, no retractions, no splinting, no tachypnea, labored breathing, is not present, Breath sounds: are clear throughout, no decreased breath sounds, no stridor, no wheezing. 17:22 Abdomen/GI: Inspection: abdomen appears normal, Bowel sounds: active, all quadrants, Palpation: abdomen is soft and non-tender, in all quadrants, rebound tenderness, is not appreciated, involuntary guarding, is not appreciated, Rectal exam: the exam is chaperoned by the nurse, noted open wounds with mild swelling, mild erythema to perianal area w/o drainage noted. 17:22 Back: CVA tenderness, is absent. 17:22 Musculoskeletal/extremity: Exam is negative for decreased range of motion, deformity, edema, injury. 17:22 Neuro: Orientation: to person, place \T\ time. Mentation: lucid, able to follow commands, Cerebellar function: is grossly normal, Motor: moves all fours, strength is normal, Sensation: no obvious gross deficits. 17:52 ECG was reviewed by the Attending Physician. Vital Signs: 16:29 BP 152 / 71; Pulse 72; Resp 20; Temp 98.4(O); Pulse Ox 95% on R/A; Weight 90.26 kg (R); aj1 Height 5 ft. 3 in. (160.02 cm) (R); 17:35 BP 106 / 62; Pulse 71; Resp 18; Pulse Ox 100% on R/A; sv 18:00 BP 109 / 60; Pulse 70; Resp 16; Pulse Ox 98% on R/A; sv 18:49 BP 111 / 58; Pulse 66; Resp 16; Pulse Ox 95% ; sv 19:30 BP 115 / 60; Pulse 67; Resp 14; Pulse Ox 97% on R/A; rr5 20:30 BP 133 / 62; Pulse 70; Resp 12; Temp 98.8(O); Pulse Ox 98% on R/A; rr5 20:55 rr5 21:25 BP 109 / 67; Pulse 63; Resp 12; Temp 98.7(O); Pulse Ox 98% on R/A; rr5 16:29 Body Mass Index 35.25 (90.26 kg, 160.02 cm) aj1 17:35 Informed Javed PA of vitals, pain medication to be changed to fentanyl sv 20:55 see transfusion rcord for further vitals. rr5 MDM: 16:44 Patient medically screened. 19:05 Data reviewed: vital signs, nurses notes, lab test result(s), EKG, radiologic studies, cp CT scan. 19:05 Test interpretation: by ED physician or midlevel provider: ECG. 08/01 17:05 Order name: Basic Metabolic Panel; Complete Time: 18:14 08/01 18:34 Interpretation: Normal except: GFR 63. 08/01 17:05 Order name: CBC with Diff; Complete Time: 18:14 08/01 18:14 Interpretation: Normal except: WBC 4.0; RBC 1.65; HGB 5.3; HCT 15.0; PLT 12; JACQUIE% 3.7; cp LYM% 95.6; MN% 0.5; NEUT A 0.1; MNA 0.0. 08/01 17:05 Order name: Creatinine for Radiology 08/01 17:05 Order name: Hepatic Function; Complete Time: 18:14 08/01 18:35 Interpretation: Normal except: AST 14; ALB 3.0; A/G 0.9. cp 08/01 17:05 Order name: Lipase; Complete Time: 18:14 cp 08/01 17:05 Order name: Blood Culture Adult (2) cp 08/01 17:05 Order name: Wound Culture cp 08/01 17:05 Order name: PT-INR; Complete Time: 18:14 cp 08/01 17:05 Order name: Ptt, Activated; Complete Time: 18:14 cp 08/01 17:05 Order name: Magnesium; Complete Time: 18:14 cp 08/01 17:05 Order name: CT Abd/Pelvis - W/Contrast: no oral contrast; Complete Time: 18:51 cp 08/01 17:27 Order name: Type And Screen cp 08/01 19:14 Order name: Packed RBC Leukored -1 EDCA 08/01 19:14 Order name: Platelets, Leukored Pheresis EDCA 08/01 17:05 Order name: IV Saline Lock; Complete Time: 17:33 cp 08/01 17:05 Order name: Labs collected and sent; Complete Time: 17:33 cp 08/01 17:05 Order name: EKG; Complete Time: 17:05 cp 08/01 17:05 Order name: EKG - Nurse/Tech; Complete Time: 17:51 cp 08/01 20:15 Order name: Diet Regular; Complete Time: 20:16 cp EC:52 Rate is 60 beats/min. Rhythm is regular. IA interval is normal. QRS interval is normal. cp QT interval is normal. Interpreted by me. Reviewed by me. Administered Medications: 17:36 Drug: Zofran 4 mg Route: IVP; Site: right forearm; sv 18:00 Follow up: Response: No adverse reaction sv 17:45 Drug: fentaNYL (PF) 25 mcg Route: IVP; Site: right forearm; sv 18:00 Follow up: Response: No adverse reaction sv 17:49 Not Given (order changed): morphine 2 mg IVP once sv 20:39 Drug: fentaNYL (PF) 25 mcg Route: IVP; Site: right forearm; lp1 22:00 Follow up: Response: No adverse reaction rr5 20:39 Drug: Benadryl 25 mg Route: PO; lp1 22:00 Follow up: Response: No adverse reaction rr5 Disposition: 08/01/18 20:25 Hospitalization ordered by Anson Li for Observation. 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 - Bed requested for Telemetry/MedSurg (observation). - Status is Observation. rr5 - Condition is Stable. - Problem is an ongoing problem. - Symptoms have improved. UTI on Admission? No Addendum: 08/11/2018 08:14 Co-signature as Attending Physician, Benedicto Garcia MD I agree with the assessment and k dr plan of care. Signatures: Dispatcher [employer] EDMS Jennifer Farfan RN RN aj1 Santa Ugarte RN RN Benedicto Armendariz MD MD [facility] Sapphire Ordoñez RN RN lp1 Javed Benedict PA PA cp Thompson, Moriah mt Roque, Raymond RN RN rr5 Corrections: (The following items were deleted from the chart) 08/01 18:14 18:14 Normal except: WBC 4.0; RBC 1.65; HGB 5.3; HCT 15.0; PLT 12; JACQUIE% 3.7; LYM% 95.6; cp MN% 0.5. cp 18:15 18:14 Normal except: WBC 4.0; RBC 1.65; HGB 5.3; HCT 15.0; PLT 12; JACQUIE% 3.7; LYM% 95.6; cp MN% 0.5; NEUT A 0.1. cp 21:27 20:25 Hospitalization Ordered by Anson Li MD for Observation. 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 Bed requested for Telemetry/MedSurg (observation). Status is Observation. Condition is Stable. Problem is an ongoing problem. Symptoms have improved. UTI on Admission? No. cp 22:05 21:27 08/01/2018 20:25 Hospitalization Ordered by Anson Li MD for Observation. 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 Bed requested for Telemetry/MedSurg (observation). Status is Observation. Condition is Stable. Problem is an ongoing problem. Symptoms have improved. UTI on Admission? No. mt
[2018-08-01] MEDS ORDERED: NA CHLORIDE 0.9% 500 ML ONE ×2 (20:29→22:59)
[2018-08-01] MEDS ORDERED: DIPHENHYDRAMINE 25 MG TAB/CAP ONE (20:43)
--- NOTE | 2018-08-01 21:21 | P.HP ---
Certification for Inpatient Patient admitted to: Inpatient With expected LOS: >2 Midnights Practitioner: I am a practitioner with admitting privileges, knowledge of patient current condition, hospital course, and medical plan of care. Services: Services provided to patient in accordance with Admission requirements found in Title 42 Section 412.3 of the Code of Federal Regulations Patient History Date of Service: 08/01/18 Reason for admission: Anemia, proctitis History of Present Illness: Ms Betts is a 68-year-old woman with history of LLC, with recurrent blood transfusion due to chronic anemia, last 1 done about 2 weeks ago in [facility], at that admission she start having some perianal pain. Subsequently she started having some secretions coming out of that area. 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 Today she went to see her for evaluation, and had laboratory work. Hemoglobin was 7.3, and platelet 12 K. she also evaluate her perianal wound, on was concerning about abscess. She was advised to come to ER for blood transfusion and surgical evaluation. Lab work in ER remarkable for hemoglobin 5.3 mg/dl, platelet 12 K again. No fever. Allergies ceftriaxone [From Rocephin] Allergy (Verified 07/08/18 03:14) Hives Penicillins Allergy (Verified 07/08/18 03:14) Hives prednisone Adverse Reaction (Verified 07/08/18 03:14) Shortness of breath Home medications list reviewed: Yes Home Medications: traMADol HCL [Ultram*] 50 mg PO Q6H PRN 06/27/18 Docusate [Colace Cap*] 100 mg PO DAILY #30 cap 07/13/18 Pantoprazole [Protonix Tab*] 40 mg PO BIDAC #60 tab 07/13/18 levoFLOXacin [Levaquin*] 500 mg PO DAILY #3 tab 07/13/18 - Past Medical/Surgical History Diabetic: No -: Chronic Lymphocytic Leukemia -: 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 -: PE -: GERD -: 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 moist/pink, EOMI, Sclerae nonicteric Neck: Supple, 2+ carotid pulse no bruit, No LAD, Without JVD or thyroid abnormality Respiratory: Clear to auscultation bilaterally, Normal air movement Cardiovascular: Regular rate/rhythm, Normal S1 S2 Gastrointestinal: Normal bowel sounds, No tenderness Musculoskeletal: No tenderness Integumentary: No rashes Neurological: Normal speech, Normal strength at 5/5 x4 extr, Normal tone, Normal affect Lymphatics: No axilla or inguinal lymphadenopathy Rectal: Other (Perianal area with ulcerative wound) - Studies Laboratory Data (last 24 hrs) 08/01/18 17:16: Creatinine 0.90 08/01/18 17:16: Sodium 138, Potassium 3.9, BUN 14, Creatinine 0.90, Glucose 106 , Magnesium 2.3, Total Bilirubin 0.2, AST 14 L, ALT 15, Alkaline Phosphatase 82 , Lipase 108 08/01/18 17:10: PT 11.8, INR 1.00, APTT 29.3 08/01/18 17:10: WBC 4.0 L, Hgb 5.3 L*, Hct 15.0 L* D, Plt Count 12 L* Assessment and Plan - Problems (Diagnosis) (1) Perianal ulcer Current Visit: Yes Status: Acute Qualifiers: Non-pressure ulcer stage: with fat layer exposed Qualified Code(s): L98.492 - Non-pressure chronic ulcer of skin of other sites with fat layer exposed (2) Thrombocytopenia Onset Date: 06/04/18 Current Visit: No Status: Acute (3) CLL (chronic lymphocytic leukemia) Onset Date: 01/23/18 Current Visit: No Status: Chronic (4) Symptomatic anemia Onset Date: 05/11/18 Current Visit: No Status: Resolved - Plan The patient will be admitted to the hospital due to anemia, thrombocytopenia and perianal ulcer. She will be transfused at least 2 units of PRBCs and [address] abdomen and pelvis was negative for abscess, but report proctitis. Will start empiric antibiotic treatment, consult general surgeon for evaluation recommendation. - Advance Directives Does patient have a Living Will: No Does patient have a Durable POA for Healthcare: No - Code Status/Comfort Care Code Status Assessed: Yes Code Status: Full Code
[2018-08-01 22:33] VITALS: BMI 35.4
[2018-08-01] MEDS ORDERED: DIPHENHYDRAMINE 25 MG TAB/CAP PO ONE (23:26)
[2018-08-01 23:45] VITALS: O2SAT 98
[2018-08-02] MEDS: METRONIDAZOLE 500mg IVPB 500 MG/100 ML BAG IV SCH ×3 (02:28→17:00)
[2018-08-02] MEDS: ONDANSETRON 4 MG/2 ML VIAL IV PRN ×3 (02:44→15:14)
[2018-08-02] MEDS: CIPROFLOXACIN 400mg IV 400 MG/200 ML BAG IV SCH ×2 (03:00→09:05)
[2018-08-02] MEDS: NA CHLORIDE 0.9% 1,000 ML IV SCH ×3 (06:44→17:16)
--- NOTE | 2018-08-02 07:13 | EKG ---
Test Date: 2018-08-01 Test Time: 17:45:40 Bench Inspector: ALEXEY MEASUREMENT RESULTS: Intervals: Rate: 60 SC: 162 QRSD: 84 QT: 418 QTc: 418 [place]: P: 13 SC: 162 QRS: 42 T: 55 INTERPRETIVE STATEMENTS: Normal sinus rhythm Cannot rule out Inferior infarct Abnormal ECG Compared to ECG 07/13/2018 03:06:38 No significant changes Electronically Signed On 08-02-18 07:13:00 CDT by Stevan Olivia
[2018-08-02] MEDS ORDERED: PNEUMOCOCCAL VACCINE 0.5 ML IMVAC ONE (08:00)
[2018-08-02] MEDS ORDERED: INFLUENZA VACCINE (for 3y+) 0.5 ML DOSE IMVAC ONE (08:00)
[2018-08-02] MEDS: MORPHINE 2 MG/ML SYR IV PRN ×2 (09:06→15:14)
[2018-08-02 09:52] LABS: Absolute Lymphocytes (CBC) 2.4 K/uL (0.7-4.9); Absolute Neutrophil 0.1 K/uL (1.8-8.0); Basophils % 0.1 % (0-1.3); Eosinophils % 0.1 % (0-4.4); Hematocrit 25.5 % (36.0-45.0); Lymphocytes % 95.1 % (15.3-44.8); MPV 9.3 fL (7.6-11.3); Monocytes % 0.4 % (3.3-12.3); RBC Red Blood Cell Count 2.84 M/uL (3.86-4.86)
[2018-08-02 11:23] LABS: Anisocytosis 1+; Blood Morphology Comment NOTED (NOT SEEN); Platelet Estimate DECR; Poikilocytosis 1+
[2018-08-02 15:22] VITALS: BP 128/72; TEMP 99.7
--- NOTE | 2018-08-02 16:29 | P.SSS ---
Patient History Date of Service: 08/02/18 Reason for admission: Anemia, proctitis History of Present Illness: Ms Betts is a 68-year-old woman with history of LLC, with recurrent blood transfusion due to chronic anemia, last 1 done about [address] [facility], at that admission she start having some perianal pain. Subsequently she started having some secretions coming out of that area. 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 Today she went to see her for evaluation, and had laboratory work. Hemoglobin was 7.3, and platelet 12 K. she also evaluate her perianal wound, on was concerning about abscess. She was advised to come to ER for blood transfusion and surgical evaluation. Lab work in ER remarkable for hemoglobin 5.3 mg/dl, platelet 12 K again. No fever. Allergies ceftriaxone [From Rocephin] Allergy (Verified 08/01/18 23:28) Hives Penicillins Allergy (Verified 08/01/18 23:28) Hives prednisone Adverse Reaction (Verified 08/01/18 23:28) Shortness of breath Home Medications: traMADol HCL [Ultram*] 50 mg PO Q6H PRN 06/27/18 Docusate [Colace Cap*] 100 mg PO DAILY #30 cap 07/13/18 Pantoprazole [Protonix Tab*] 40 mg PO BIDAC #60 tab 07/13/18 Ciprofloxacin HCl 500 mg PO Q12HR #24 tablet 08/02/18 - Past Medical/Surgical History Has patient received pneumonia vaccine in the past: No Diabetic: No -: Chronic Lymphocytic Leukemia -: 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 -: PE -: GERD -: 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 -: cyst removed from left breast -: left ankle surgery -: Hysterectomy 2018 -: Abdominal hernia repair with mesh placement - Family History Mother -: Heart disease, Other (see notes) Notes: [place], [place] Father -: Cancer Notes: Pancreatic [place] - Social History Smoking Status: Never smoker Alcohol use: No CD- Drugs: No Caffeine use: Yes Place of Residence: Home Review of Systems As noted above Physical Examination - Vital Signs Temperature: 99.7 F Blood Pressure: 128/72 Pulse: 73 Respirations: 18 Pulse Ox (%): 97 - Physical Exam General: Alert, In no apparent distress HEENT: Atraumatic, PERRLA, Mucous membr. moist/pink, EOMI, Sclerae nonicteric Neck: Supple, 2+ carotid pulse no bruit, No LAD, Without JVD or thyroid abnormality Respiratory: Clear to auscultation bilaterally, Normal air movement Cardiovascular: Regular rate/rhythm, Normal S1 S2 Gastrointestinal: Normal bowel sounds, No tenderness Musculoskeletal: No tenderness Neurological: Normal gait, Normal speech, Normal strength at 5/5 x4 extr, Normal tone, Normal affect Lymphatics: No axilla or inguinal lymphadenopathy Rectal: Tenderness, Other (Perianal abscess noted) - Studies Laboratory Data (last 24 hrs) 08/01/18 17:16: Creatinine 0.90 08/01/18 17:16: Sodium 138, Potassium 3.9, BUN 14, Creatinine 0.90, Glucose 106 , Magnesium 2.3, Total Bilirubin 0.2, AST 14 L, ALT 15, Alkaline Phosphatase 82 , Lipase 108 08/01/18 17:10: PT 11.8, INR 1.00, APTT 29.3 08/01/18 17:10: WBC 4.0 L, Hgb 5.3 L*, Hct 15.0 L* D, Plt Count 12 L* Microbiology Data (last 24 hrs): 08/01/18 17:25 Wound - Rectal Swab Gram Stain - Final 08/01/18 17:25 Blood - Blood Anaerobic Blood Culture - Final 08/01/18 17:10 Blood - Blood Anaerobic Blood Culture - Final Treatment Summary: The patient was admitted to the hospital due to anemia, thrombocytopenia and perianal ulcer. She was transfused 2 units of PRBCs and 6 units of platelets. Post transfusion, labs look stable. CT abdomen and pelvis was negative for abscess, but report proctitis. She was started on empiric antibiotic treatment , general surgeon was consulted for evaluation. General surgery recommended examination under anesthesia though unable to do inpatient due to scheduling conflicts. Patient will follow up with general surgery, Dr. New, for outpatient evaluation/procedure. Patient is aware of this and information for Dr. New given to patient. In the meanwhile, patient to do Sitz baths at home. Instructions/information provided to patient. Discharged home on oral ciprofloxacin. - Disposition Disposition: ROUTINE DISCHARGE Condition: GOOD Patient Discharge Instructions: Please follow up with their primary care physician in [address] Moore's office on Monday regarding outpatient follow up for procedure. Diet: Regular Activity: Ad jamaal Time Spent Managing Pts Care (In Minutes): 50
--- NOTE | 2018-08-03 13:43 | CON ---
Date of Consultation: 08/02/2018 Reason For Consultation: Perianal pain. Brief History Of Present Illness: The patient is a 68-year-old woman with a history of chr onic lymphocytic leukemia (CLL) with recurrent blood transfusions due to chronic anemia requiring tra nsfusions frequently, the last 1 being approximately [address] [facility]. She had a transfusion at that time due to significant anemia and her classic features of anemia, the weakness, fatigue, shortness of breath, and ultimately she recovered after transfusion at that time, which her hemoglobin was in the 5 range and they transfused it back up into the 8 range by her report, almost 8 range, 7.3. She at that time developed some perianal pain and states that this occurred about 1/2 t o 2 weeks ago initially. She has had previous perianal pain before, but of a different type. She piper s been seen by Dr. Robbins whereby she had a perineal carcinoma in situ removed from her labia at th is time. She additionally had a hysterectomy in the past. She comes in now with recurrence of her s ymptoms, but predominantly due to the perineal pain. She was concerned about abscess or possibly can cer in this area. The area has been quite tender. She has received no therapy for this and has not tried any management strategies at this point. Her lab work was performed here and she was found to be anemic once again with thrombocytopenia. Allergies: TO ROCEPHIN, PENICILLIN, AND PREDNISONE. Home Medications: Include tramadol, Colace, Protonix, and Levaquin. Past Medical History: Significant for CLL, chronic lymphocytic leukemia, precancer cells of the uter us. She has had a PE, GERD, perineal carcinoma in situ. Past Surgical History: Includes a left breast cyst removal, left ankle surgery, hysterectomy in 2018 , abdominal hernia repair with mesh placement. Family History: Mother had heart disease, Alzheimer's, [place]. Father had pancreatic cancer. Social History: She denies smoking, alcohol, or recreational drug use. Review of Systems: A 10-point review of systems, other than HPI, she denies currently. Physical Examination: Vital Signs: At the time of my examination, her BMI was 35.4. Her vital signs were a blood pressure of 128/72, pulse is 73, respiratory rate 18, temperature 99.7. General: She is awake, alert, and oriented. Psychiatric: She is appropriate conversive. HEENT: She is normocephalic. Her sclerae were anicteric. Her mucous membranes are moist. Orophary nx is clear. Respiratory: Clear to auscultation. Cardiovascular: Regular rate and rhythm. Abdomen: Soft. Well-healed surgical scars. Nontender. 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 I am unable to complete examination due to the significant pain associated with this and un able to complete a rectal examination due to pain. She does have some pale appearing skin on the lab ia near the perineal aspect, which appears to have a heaped up appearance concerning for neoplastic p rocess in my opinion, it is very thin and a very small area of less than half a centimeter. Extremities: No clubbing, cyanosis, or edema. Skin: Warm and dry. Laboratory Data: During the time of my examination revealed a white blood cell count of 2.6. Hemogl obin was 8.7, it was 5.3 on admission. Her hematocrit was 25.5. Platelet count was 33, up from 12 o n admission. She was transfused during this admission. Neutrophils were 4.3, lymphocytes 95.1. Her absolute neutrophils were 0.1, segmented neutrophils were 92, lymphocytes were 8, absolute monocytes was 0, eosinophils and basophil absolute numbers were also 0 down the line. Her PT was 11.8, INR 1. 0, PTT 29.3. Her sodium 145, potassium 4.0, chloride 111, carbon dioxide 26, BUN 10, creatinine 0.7. Last glucose was 96, calcium 8.7. She had imaging performed which included a CT of the abdomen and pelvis, which was officially read as mild progression of intraabdominal and intrapelvic lymphadenopa thy. Mild proctitis is suspected without evidence of a perirectal abscess. She has bulky lymphadeno kar of the gastrohepatic ligament, root of the small bowel mesentery, and small bowel mesentery, re troperitoneum, bilateral inguinal region, pelvic sidewall, again noted mildly increased since 018. Assessment And Plan: This is a 68-year-old female with progressive CLL who comes in with what appear s to be a perianal abscess. 1.I recommend exam under anesthesia and likely placement of a seton drain into this. 2.Medical management to include sitz baths, lidocaine topical jelly to this area, and local wound ca re. 3.I have explained the risks, benefits, alternatives of the above stated plan. The patient agrees t o proceed as indicated. If we cannot perform this in a timely fashion within the next day, the patie nt would like to be discharged home and follow up as an outpatient to get this performed, as there is no active drainable collections at this point, I find that this is an appropriate plan, and I will f ollow up with her as an outpatient should we not be able to get this performed within the next day. Thank you for this interesting consult. ERMA Voice ID: [id number] Report ID: [id number]
== END 2018-08-02 17:30 | disposition home health service (06) ==
LOC: ER 16:21 → ERHOLD 20:47 → OBSVTOIN 21:13 → INTOOBSV 21:13 → 2ND 21:54
PROVIDERS: ADMIT Internal Medicine; ATTEND Internal Medicine
DX: D64.9 Anemia, unspecified (principal); D69.6 Thrombocytopenia, unspecified; C91.10 Chronic lymphocytic leukemia of B-cell type not having achieved remission; L98.492 Non-pressure chronic ulcer of skin of other sites with fat layer exposed; D09.8 Carcinoma in situ of other specified sites; K62.89 Other specified diseases of anus and rectum; Z88.0 Allergy status to penicillin
CPT/HCPCS: 36415; 36430 ×2; 74177; 80048 ×2; 80076; 83690; 83735; 85025 ×2; 85610; 85730; 86850; 86900; 86901; 87040 ×2; 87070; 93005; 96374; 96375; 99285; J0744 ×2; J2270 ×2; J2405 ×4; J3010 ×2; J7030; P9016 ×2; P9035; Q9967; 87205

== ENCOUNTER 2018-08-22 12:40 | Day surgery (SDC) | payer OTHER ==
--- OUTSIDE RECORDS SUMMARY | 2018-08-22 12:53 | XMS REPORT | Clinical Summary ---
:1950 Author Organization [facility] Address [address] [place] [address] Care Team Providers Name Role Phone Edith Miller MD Primary Care Provider Allergies Active Allergy Reactions Severity Noted Date Comments Ceftriaxone 07/23/2018 Penicillins 07/23/2018 Prednisone 07/23/2018 Medications Medication Sig Dispensed Refills Start Date End Date Status traMADol (ULTRAM) 50 Take 50 mg by 0 Active mg tablet mouth every 6 (six) hours as needed for moderate pain. pantoprazole Take 40 mg by 0 Active (PROTONIX) 40 MG EC mouth 2 (two) tablet times a day. docusate sodium Take 100 mg by 0 Active (COLACE) 100 MG mouth daily. capsule MULTIVITAMIN ORAL Take 1 tablet 0 Active by mouth daily. ergocalciferol Take 50,000 0 Active (VITAMIN D2) 50,000 Units by mouth unit capsule once a week. ondansetron ODT Take 1 tablet 10 tablet 0 07/25/2018 Active (ZOFRAN-ODT) 4 MG (4 mg total) 8 disintegrating by mouth every tablet 8 (eight) hours as needed for nausea or vomiting for up to 30 days. ferrous sulfate Take 1 tablet 30 tablet 0 07/25/2018 Active (FERROUSUL) 325 (65 (325 mg total) 9 FE) MG tablet by mouth daily with breakfast. ciprofloxacin Take 500 mg by 0 Active (CIPRO) 500 MG mouth 2 (two) tablet times a day. ibrutinib (IMBRUVICA Take by mouth. 0 Discontinued ORAL) 8 traMADol (ULTRAM) 50 Take 1 tablet 30 tablet 0 07/25/2018 Discontinued mg tablet (50 mg total) 8 by mouth every 6 (six) hours as needed for moderate pain for up to 30 days. Active Problems Problem Noted Date CLL (chronic lymphocytic leukemia) 07/24/2018 Anemia 07/24/2018 Hematochezia 07/24/2018 Splenomegaly 07/24/2018 Thrombocytopenia 07/23/2018 Encounters Date Type Specialty Care Team Description 08/13/2018 - Emergency General Internal Higinio Hand Thrombocytopenia ( HCC) (Primary Dx); 08/14/2018 Medicine Javad Hsieh Anemia, unspecified type; CLL (chronic lymphocytic leukemia) (HCC) Rico Heath MD 08/10/2018 Orders Only Oncology Allie Garza MD 08/07/2018 Telephone Oncology Carine Jacobsen RN 07/27/2018 Orders Only Oncology Delmar Anemia, unspecified type HARLEY Hawk (Primary Dx) 07/26/2018 Telephone Oncology Pat Hurtado, MA 07/26/2018 Orders Only Oncology Genesis, Pat, Anemia, unspecified type ( Primary Dx); MA Thrombocytopenia (HCC) 07/26/2018 Orders Only Oncology Genesis, Pat, Anemia, unspecified type ( Primary Dx); MA Thrombocytopenia (HCC) 07/23/2018 - Emergency General Internal MackCorbin [email or web address] Thrombocytopenia ( HCC) (Primary Dx); 07/25/2018 Medicine MD Alejandra Anemia, unspecified type Ivis Hughes MD Opara, Emmanuel C., MD after 08/21/2017 Social History Tobacco Use Types Packs/Day Years Used Date Never Smoker Smokeless Tobacco: Never Used Alcohol Use Drinks/Week oz/Week Comments No Sex Assigned at Date Recorded Not on file Job Start Date Occupation Industry Not on file Not on file Not on file Travel History Travel Start Travel End No recent travel history available. Last Filed Vital Signs Vital Sign Reading Time Taken Blood Pressure 127/76 08/14/2018 11:28 AM ENG[employer]ING AND SCIENTIFIC PROGRAMMER Pulse 79 08/14/2018 11:28 AM ENGINEERING AND SCIENTIFIC PROGRAMMER Temperature 36.8 C (98.2 F) 08/14/2018 11:28 AM ENGINEERING AND SCIENTIFIC PROGRAMMER Respiratory Rate 19 08/14/2018 11:28 AM ENGINEERING AND SCIENTIFIC PROGRAMMER Oxygen Saturation 98% 08/14/2018 11:28 AM ENGINEERING AND SCIENTIFIC PROGRAMMER Inhaled Oxygen Concentration - - Weight 89.4 kg (197 lb) 08/13/2018 5:41 AM ENGINEERING AND SCIENTIFIC PROGRAMMER Height 165.1 cm (5' 5") 08/13/2018 5:41 AM ENGINEERING AND SCIENTIFIC PROGRAMMER Body Mass Index 32.78 08/13/2018 5:41 AM ENGINEERING AND SCIENTIFIC PROGRAMMER Plan of Treatment Date Type Specialty Care Team Description 08/28/2018 Office Visit Gynecologic Oncology Georgina Hanley MD [address] [place] [address] [phone] Health Maintenance Due Date Last Done Comments BREAST CANCER SCREENING 02/25/2002 COLON CANCER SCREENING 02/25/2002 SHINGRIX VACCINE (1 of 2) 02/25/2002 ZOSTER VACCINE 2012 PNEUMOCOCCAL POLYSACCHARIDE VACCINE AGE 65 AND OVER 02/25/2017 PNEUMOCOCCAL-13 02/25/2017 INFLUENZA VACCINE 05/09/2018 Implants Implanted Type Area First Cook Device Shelf Model / Identifier Expiration Serial / Date Lot Bone Plate Bone Left: Ankle Plate Bone Plate-01/21/2003 Bone Left: Ankle Implanted: 01/21/2003 (Quantity not on file) Plate Mesh-10/14/2005 Mesh Abdomen, Implanted: 10/14/2005 (Quantity not on file) Middle Quadrant/Non Specific Procedures Procedure Name Priority Date/Time Associated Comments Diagnosis MANUAL DIFFERENTIAL Routine 08/14/2018 5:58 Results for this AM ENG[employer]ERING AND SCIENTIFIC PROGRAMMER procedure are in the results section. ESTIMATED GFR Routine 08/14/2018 5:58 Results for this AM ENG[employer]ERING AND SCIENTIFIC PROGRAMMER procedure are in the results section. BASIC METABOLIC PANEL Routine 08/14/2018 5:58 Results for this AM ENG[employer]ERING AND SCIENTIFIC PROGRAMMER procedure are in the results section. CBC WITH PLATELET AND Routine 08/14/2018 5:58 Results for this DIFFERENTIAL AM ENG[employer]ING AND SCIENTIFIC PROGRAMMER procedure are in the results section. MANUAL DIFFERENTIAL Routine 08/13/2018 8:35 Results for this PM [employer]ING [employer]IFIC PROGRAMMER procedure are in the results section. CBC WITH PLATELET AND Routine 08/13/2018 8:35 Results for this DIFFERENTIAL PM [employer]INEERING [employer] SCIENTIFIC PROGRAMMER procedure are in the results section. TRANSFUSE PLATELETS STAT 08/13/2018 7:08 PM ENGINEERING AND SCIENTIFIC PROGRAMMER TRANSFUSE PLATELETS STAT 08/13/2018 5:31 PM ENGINEERING AND SCIENTIFIC PROGRAMMER TRANSFUSE RED BLOOD STAT 08/13/2018 2:53 CELLS PM ENGINEERING AND SCIENTIFIC PROGRAMMER TRANSFUSE RED BLOOD STAT 08/13/2018 10:25 CELLS AM ENGINEERING AND SCIENTIFIC PROGRAMMER TROPONIN Timed 08/13/2018 7:50 Results for this AM ENGINEERING AND SCIENTIFIC PROGRAMMER procedure are in the results section. URINALYSIS SCREEN AND STAT 08/13/2018 3:36 Results for this MICROSCOPY, WITH REFLEX AM ENGINEERING AND SCIENTIFIC PROGRAMMER procedure are in TO CULTURE the results section. URINE CULTURE STAT 08/13/2018 3:36 Results for this AM ENG[employer]ERING AND SCIENTIFIC PROGRAMMER procedure are in the results section. MANUAL DIFFERENTIAL STAT 08/13/2018 3:31 Results for this AM ENGINEERING AND SCIENTIFIC PROGRAMMER procedure are in the results section. ESTIMATED GFR STAT 08/13/2018 3:31 Results for this AM ENGINEERING AND SCIENTIFIC PROGRAMMER procedure are in the results section. MAGNESIUM LEVEL STAT 08/13/2018 3:31 Results for this AM ENGINEERING AND SCIENTIFIC PROGRAMMER procedure are in the results section. RETICULOCYTE COUNT STAT 08/13/2018 3:31 Results for this AM ENGINEERING AND SCIENTIFIC PROGRAMMER procedure are in the results section. TROPONIN STAT 08/13/2018 3:31 Results for this AM ENGINEERING AND SCIENTIFIC PROGRAMMER procedure are in the results section. PARTIAL THROMBOPLASTIN STAT 08/13/2018 3:31 Results for this TIME (PTT) AM ENGINEERING AND SCIENTIFIC PROGRAMMER procedure are in the results section. PROTHROMBIN TIME WITH STAT 08/13/2018 3:31 Results for this INR AM ENGINEERING AND SCIENTIFIC PROGRAMMER procedure are in the results section. COMPREHENSIVE METABOLIC STAT 08/13/2018 3:31 Results for this PANEL AM ENGINEERING AND SCIENTIFIC PROGRAMMER procedure are in the results section. CBC WITH PLATELET AND STAT 08/13/2018 3:31 Results for this DIFFERENTIAL AM [employer]ING [employer]ENT[employer] PROGRAMMER procedure are in the results section. ECG ED PRELIMINARY Routine 08/13/2018 3:17 Results for this INTERPRETATION AM ENGINEERING [employer] SCIENTIFIC PROGRAMMER procedure are in the results section. IN CRITICAL CARE, E/M Routine 08/13/2018 3:17 Results for this 30-74 MINUTES AM ENGINEERING AND SCIENTIFIC PROGRAMMER procedure are in the results section. ECG 12-LEAD STAT 08/13/2018 2:49 AM ENGINEERING AND SCIENTIFIC PROGRAMMER PREPARE PLATELET STAT 08/13/2018 2:44 Results for this PHERESIS AM ENGINEERING AND SCIENTIFIC PROGRAMMER procedure are in the results section. PREPARE RBC STAT 08/13/2018 2:44 Results for this AM ENGINEERING AND SCIENTIFIC PROGRAMMER procedure are in the results section. TYPE AND SCREEN STAT 08/13/2018 2:44 Results for this AM ENGINEERING AND SCIENTIFIC PROGRAMMER procedure are in the results section. MISCELLANEOUS REFERRAL Routine 08/10/2018 TEST MISCELLANEOUS REFERRAL Routine 07/25/2018 1:45 Results for this TEST PM CDT procedure are in the results section. MANUAL DIFFERENTIAL Routine 07/25/2018 5:05 Results for [...] procedure are in the results section. after 08/21/2017 Results Estimated GFR (08/14/2018 5:58 AM ENGINEERING AND SCIENTIFIC PROGRAMMER)Only the most recent of5 resultswithin the time period is included. Estimated GFR >=90 mL/min/1.73 m2 [facility] DEPARTMENT OF Comment: PATHOLOGY AND GENOMIC CatergoryUnitsInterpretation MEDICINE G1 >=90 Normal or high G2 60-89Mildly decreased [id number] to moderately decreased K8u58-15Lvtvkcstay to severely decreased G4 15-29Severely decreased G5 <15Kidney failure The eGFR was calculated using the Chronic Kidney Disease Epidemiology Collaboration (CKD-EPI) equation. Interpretation is based on recommendations of the National Kidney Foundation-Kidney Disease Outcomes Quality Initiative (NKF-KDOQI) published in 2014. Specimen Plasma specimen Performing Organization Address City/State/Zipcode Phone Number [facility] DEPARTMENT OF PATHOLOGY [address] [place] [address] AND GENOMIC MEDICINE Manual differential (08/14/2018 5:58 AM ENGINEERING AND SCIENTIFIC PROGRAMMER)Only the most recent of7 resultswithin the time period is included. Manual differential PERFORMED [facility] DEPARTMENT OF PATHOLOGY AND GENOMIC MEDICINE Neutrophils 3.0 (L) 39.0 - 69.0 % [facility] DEPARTMENT OF PATHOLOGY AND GENOMIC MEDICINE Lymphocytes 97.0 (H) 25.0 - 45.0 % [facility] DEPARTMENT OF PATHOLOGY AND GENOMIC MEDICINE Monocytes 0.0 0.0 - 10.0 % [facility] DEPARTMENT OF PATHOLOGY AND GENOMIC MEDICINE Eosinophils 0.0 0.0 - 5.0 % [facility] DEPARTMENT OF PATHOLOGY AND GENOMIC MEDICINE Basophils 0.0 0.0 - 1.0 % [facility] DEPARTMENT OF PATHOLOGY AND GENOMIC MEDICINE Reactive lymphocytes Few [facility] DEPARTMENT OF PATHOLOGY AND GENOMIC MEDICINE Platelet slide review Mkd decreased (A) [facility] DEPARTMENT OF PATHOLOGY AND GENOMIC MEDICINE Anisocytosis Moderate [facility] DEPARTMENT OF PATHOLOGY AND GENOMIC MEDICINE Polychromasia Moderate [facility] DEPARTMENT OF PATHOLOGY AND GENOMIC MEDICINE Spherocytes Occasional [facility] DEPARTMENT OF PATHOLOGY AND GENOMIC MEDICINE Ovalocytes Moderate [facility] DEPARTMENT OF PATHOLOGY AND GENOMIC MEDICINE Smudge cells Few [facility] DEPARTMENT OF PATHOLOGY AND GENOMIC MEDICINE Performing Organization Address City/State/Zipcode Phone Number [facility] DEPARTMENT OF PATHOLOGY [address] [place] [address] AND GENOMIC MEDICINE CBC with platelet and differential (08/14/2018 5:58 AM ENGINEERING AND SCIENTIFIC PROGRAMMER)Only the most recent of7 resultswithin the time period is included. WBC 2.2 (L) 4.5 - 11.0 k/uL [facility] DEPARTMENT OF PATHOLOGY AND GENOMIC MEDICINE RBC 3.17 (L) 4.20 - 5.50 m/uL [facility] DEPARTMENT OF PATHOLOGY AND GENOMIC MEDICINE HGB 9.7 (L) 12.0 - 16.0 g/dL [facility] DEPARTMENT OF PATHOLOGY AND GENOMIC MEDICINE HCT 27.9 (L) 37.0 - 47.0 % [facility] DEPARTMENT OF PATHOLOGY AND GENOMIC MEDICINE MCV 88.0 82.0 - 100.0 fL [facility] DEPARTMENT OF PATHOLOGY AND GENOMIC MEDICINE MCH 30.6 27.0 - 34.0 pg [facility] DEPARTMENT OF PATHOLOGY AND GENOMIC MEDICINE MCHC 34.8 31.0 - 37.0 g/dL [facility] DEPARTMENT OF PATHOLOGY AND GENOMIC MEDICINE RDW - SD 44.6 37.0 - 55.0 fL [facility] DEPARTMENT OF PATHOLOGY AND GENOMIC MEDICINE MPV 10.4 6.9 - 11.0 fL [facility] DEPARTMENT OF PATHOLOGY AND GENOMIC MEDICINE Platelet count 35 (LL) 150 - 400 K/uL [facility] DEPARTMENT OF PATHOLOGY Comment: AND GENOMIC MEDICINE Final results called to and read back by ARNALDO ROBERTSON RN 08/14/2018 08:04 JLABQLD/ CU Nucleated RBC 0.00 /100 WBC [facility] DEPARTMENT OF PATHOLOGY AND GENOMIC MEDICINE Neutrophils 3.0 (L) 39.0 - 69.0 % [facility] DEPARTMENT OF PATHOLOGY AND GENOMIC MEDICINE Lymphocytes 97.0 (H) 25.0 - 45.0 % [facility] DEPARTMENT OF PATHOLOGY AND GENOMIC MEDICINE Monocytes 0.0 0.0 - 10.0 % [facility] DEPARTMENT OF PATHOLOGY AND GENOMIC MEDICINE Eosinophils 0.0 0.0 - 5.0 % [facility] DEPARTMENT OF PATHOLOGY AND GENOMIC MEDICINE Basophils 0.0 0.0 - 1.0 % [facility] DEPARTMENT OF PATHOLOGY AND [employer] MEDICINE Specimen Blood Performing Organization Address City/State/Zipcode Phone Number [facility] DEPARTMENT OF PATHOLOGY [address] [place] [address]. [place] [address] AND [employer] [facility] Basic metabolic panel (08/14/2018 5:58 AM ENGINEERING AND SCIENTIFIC PROGRAMMER)Only the most recent of3 resultswithin the time period is included. Sodium 141 135 - 148 mEq/L [facility] DEPARTMENT OF PATHOLOGY AND [employer] MEDICINE Potassium 4.1 3.5 - 5.0 mEq/L [facility] DEPARTMENT OF PATHOLOGY AND [employer] MEDICINE Chloride 104 98 - 112 mEq/L [facility] DEPARTMENT OF PATHOLOGY AND [employer] MEDICINE CO2 24 24 - 31 mEq/L [facility] DEPARTMENT OF PATHOLOGY AND [employer] MEDICINE Anion gap 13@ANIO 7 - 15 mEq/L [facility] DEPARTMENT OF PATHOLOGY AND [employer] MEDICINE BUN 11 8 - 23 mg/dL [facility] DEPARTMENT OF PATHOLOGY AND [employer] MEDICINE Creatinine 0.69 0.50 - 0.90 mg/dL [facility] DEPARTMENT OF PATHOLOGY AND [employer] MEDICINE Glucose 107 (H) 65 - 99 mg/dL [facility] DEPARTMENT OF PATHOLOGY AND [employer] MEDICINE Calcium 9.1 8.8 - 10.2 mg/dL [facility] DEPARTMENT OF PATHOLOGY AND [employer] MEDICINE Specimen Plasma specimen Performing Organization Address City/[facility] Phone Number [facility] DEPARTMENT PATHOLOGY [address] [place] [address]. [address] [employer] [facility] Transfuse platelets (08/13/2018 7:08 PM ENGINEERING AND SCIENTIFIC PROGRAMMER)Only the most recent of6 resultswithin the time period is included.Transfuse RBC (08/13/2018 2:53 PM ENGINEERING AND SCIENTIFIC PROGRAMMER )Only the most recent of4 resultswithin the time period is included.Troponin ( 7:50 AM ENGINEERING AND SCIENTIFIC PROGRAMMER)Only the most recent of3 resultswithin the time period is included. Troponin <0.30 0.00 - 0.30 ng/mL [facility] DEPARTMENT OF PATHOLOGY Comment: AND [employer] MEDICINE 0.11 - 1.49 ng/mlMay indicate increased risk of acute coronary syndrome. >=1.5 ng/mlConsistent with acute myocardial infarction. The diagnostic value of a single normal or non-diagnostic result is questionable.Serial samples at 2-6 hour intervals are required to rule out acute myocardial injury. Specimen Plasma specimen Performing Organization Address City/[facility]/Zipcode Phone Number [facility] DEPARTMENT OF PATHOLOGY [address] [place] [address] AND [employer] [facility] Urinalysis screen and microscopy, with reflex to culture (08/13/2018 3:36 AM ENGINEERING AND SCIENTIFIC PROGRAMMER)Only the most recent of2 resultswithin the time period is included. Specimen site Clean catch [facility] DEPARTMENT OF PATHOLOGY AND GENOMIC MEDICINE Color, UA Straw [facility] DEPARTMENT OF PATHOLOGY AND GENOMIC MEDICINE Appearance, UA Clear [facility] DEPARTMENT OF PATHOLOGY AND GENOMIC MEDICINE Specific gravity, UA 1.008 1.001 - 1.030 [facility] DEPARTMENT OF PATHOLOGY AND GENOMIC MEDICINE pH, UA 6.0 5.0 - 9.0 [facility] DEPARTMENT OF PATHOLOGY AND GENOMIC MEDICINE Protein, UA Negative Negative [facility] DEPARTMENT OF PATHOLOGY AND GENOMIC MEDICINE Glucose, UA Negative Negative [facility] DEPARTMENT OF PATHOLOGY AND GENOMIC MEDICINE Ketones, UA Negative Negative [facility] DEPARTMENT OF PATHOLOGY AND GENOMIC MEDICINE Bilirubin, UA Negative Negative [facility] DEPARTMENT OF PATHOLOGY AND GENOMIC MEDICINE Blood, UA Negative Negative [facility] DEPARTMENT OF PATHOLOGY AND GENOMIC MEDICINE Nitrite, UA Negative Negative [facility] DEPARTMENT OF PATHOLOGY AND GENOMIC MEDICINE Urobilinogen, UA <2.0 <2.0 E.U./dL [facility] DEPARTMENT OF PATHOLOGY AND GENOMIC MEDICINE Leukocyte esterase, UA Negative Negative [facility] DEPARTMENT OF PATHOLOGY AND GENOMIC MEDICINE Epithelial cells, UA <1 /HPF [facility] DEPARTMENT OF PATHOLOGY AND GENOMIC MEDICINE WBC, UA <1 0 - 4 /HPF [facility] DEPARTMENT OF PATHOLOGY AND GENOMIC MEDICINE RBC, UA <1 0 - 5 /HPF [facility] DEPARTMENT OF PATHOLOGY AND GENOMIC MEDICINE Bacteria, UA None seen None seen [facility] DEPARTMENT OF PATHOLOGY AND GENOMIC MEDICINE Yeast, UA None seen [facility] DEPARTMENT OF PATHOLOGY AND GENOMIC MEDICINE Yeast with pseudohyphae, UA None seen [facility] DEPARTMENT OF PATHOLOGY AND GENOMIC MEDICINE Specimen Urine Performing Organization Address City/State/Zipcode Phone Number [facility] DEPARTMENT OF PATHOLOGY [address] [place] [address] AND [employer] [facility] Urine culture (08/13/2018 3:36 AM ENGINEERING AND SCIENTIFIC PROGRAMMER)Only the most recent of2 resultswithin the time period is included. Urine culture SEE COMMENTComment: Bacteriuria [facility] DEPARTMENT OF PATHOLOGY screen negative. AND GENOMIC MEDICINE Performing Organization Address City/[facility]/Zipcode Phone Number [facility] DEPARTMENT OF PATHOLOGY [address] [place] [id number] AND [employer] [facility] Partial thromboplastin time, activated (08/13/2018 3:31 AM ENGINEERING AND SCIENTIFIC PROGRAMMER)Only the most recent of2 resultswithin the time period is included. PTT 29.5 23.0 - 36.0 sec [facility] DEPARTMENT OF Comment: PATHOLOGY AND [facility] PTT therapeutic range for unfractionated heparin is MEDICINE 61.0-112.0 seconds which corresponds to Anti-Xa 0.3-0.7 U/ml. Specimen Blood Performing Organization Address [facility] Phone Number [facility] DEPARTMENT OF PATHOLOGY [address] [place] [address]. [place] [address] AND [facility] Prothrombin time with INR (08/13/2018 3:31 AM ENGINEERING AND SCIENTIFIC PROGRAMMER)Only the most recent of2 resultswithin the time period is included. Prothrombin time 13.1 11.5 - 14.5 sec [facility] DEPARTMENT OF PATHOLOGY AND [facility] INR 1.0 [facility] DEPARTMENT OF Comment: PATHOLOGY AND [facility] The International Normalized Ratio (INR) is a therapeutic MEDICINE monitoring tool for patients who are stable on oral anticoagulant therapy. An INR of 2.0-3.0 is suggested for deep vein thrombosis/pulmonary embolism. Specimen Blood Performing Organization Address [facility] Phone Number [facility] DEPARTMENT OF PATHOLOGY [address] [place] [address]. [place] [address] AND [employer] [facility] Reticulocyte count (08/13/2018 3:31 AM ENGINEERING AND SCIENTIFIC PROGRAMMER)Only the most recent of2 resultswithin the time period is included. Retic %, auto 0.3 (L) 0.5 - 2.1 % [facility] DEPARTMENT OF PATHOLOGY AND GENOMIC MEDICINE Retic absolute, auto 0.0080 (L) 0.0210 - 0.1155 m/uL [facility] DEPARTMENT OF PATHOLOGY AND [employer] MEDICINE Specimen Blood Performing Organization Address [facility] Phone Number [facility] DEPARTMENT OF PATHOLOGY [address] [place] [address] AND [employer] [facility] Magnesium level (08/13/2018 3:31 AM ENGINEERING AND SCIENTIFIC PROGRAMMER) Magnesium 2.0 1.6 - 2.4 mg/dL [facility] DEPARTMENT OF PATHOLOGY AND [employer] [facility] Specimen Plasma specimen Performing Organization Address [facility] Phone Number [facility] DEPARTMENT OF PATHOLOGY [address] [place] [address] AND [employer] [facility] Comprehensive metabolic panel (08/13/2018 3:31 AM ENGINEERING AND SCIENTIFIC PROGRAMMER)Only the most recent of2 resultswithin the time period is included. Sodium 143 135 - 148 mEq/L [facility] DEPARTMENT OF PATHOLOGY AND GENOMIC MEDICINE Potassium 4.1 3.5 - 5.0 mEq/L [facility] DEPARTMENT OF PATHOLOGY AND GENOMIC MEDICINE Chloride 107 98 - 112 mEq/L [facility] DEPARTMENT OF PATHOLOGY AND GENOMIC MEDICINE CO2 24 24 - 31 mEq/L [facility] DEPARTMENT OF PATHOLOGY AND GENOMIC MEDICINE Anion gap 12@ANIO 7 - 15 mEq/L [facility] DEPARTMENT OF PATHOLOGY AND GENOMIC MEDICINE BUN 13 8 - 23 mg/dL [facility] DEPARTMENT OF PATHOLOGY AND GENOMIC MEDICINE Creatinine 0.78 0.50 - 0.90 mg/dL [facility] DEPARTMENT OF PATHOLOGY AND GENOMIC MEDICINE Glucose 112 (H) 65 - 99 mg/dL [facility] DEPARTMENT OF PATHOLOGY AND GENOMIC MEDICINE Calcium 9.4 8.8 - 10.2 mg/dL [facility] DEPARTMENT OF PATHOLOGY AND GENOMIC MEDICINE Protein 6.4 6.3 - 8.3 g/dL [facility] DEPARTMENT OF PATHOLOGY AND GENOMIC MEDICINE Albumin 3.9 3.5 - 5.0 g/dL [facility] DEPARTMENT OF PATHOLOGY AND GENOMIC MEDICINE A/G ratio 1.6 0.7 - 3.8 [facility] DEPARTMENT OF PATHOLOGY AND GENOMIC MEDICINE Alkaline phosphatase 66 35 - 104 U/L [facility] DEPARTMENT OF PATHOLOGY AND GENOMIC MEDICINE AST 13 10 - 35 U/L [facility] DEPARTMENT OF PATHOLOGY AND GENOMIC MEDICINE ALT 9 5 - 50 U/L [facility] DEPARTMENT OF PATHOLOGY AND GENOMIC MEDICINE Total bilirubin 0.3 0.2 - 1.2 mg/dL [facility] DEPARTMENT OF PATHOLOGY AND GENOMIC MEDICINE Specimen Plasma specimen Performing Organization Address City/State/Zipcode Phone Number [facility] DEPARTMENT OF PATHOLOGY [address] [place] [address] AND GENOMIC MEDICINE ECG ED Preliminary Interpretation - NOT AN ORDER (08/13/2018 3:17 AM ENGINEERING AND SCIENTIFIC PROGRAMMER)Only the most recent of2 resultswithin the time period is included. Narrative Performed At Higinio Hand MD 08/14/20188:40 PM ECG ED Preliminary Interpretation - Not an Order Performed by: HIGINIO HAND Authorized by: HIGINIO HAND ECG reviewed by ED Physician in the absence of a efficiency miner blasting: yes Interpretation: Interpretation: abnormal Rate: ECG rate:83 ECG rate assessment: normal Rhythm: Rhythm: sinus rhythm Ectopy: Ectopy: none QRS: QRS axis:Normal QRS intervals:Normal ST segments: ST segments:Normal T waves: T waves: non-specific CRITICAL CARE (08/13/2018 3:17 AM ENGINEERING AND SCIENTIFIC PROGRAMMER) Narrative Performed At Higinio Hand MD 08/14/20188:40 PM Critical Care Performed by: HIGINIO HAND Authorized by: HIGINIO HAND Critical care provider statement: Critical care time (minutes):35 Critical care time was exclusive of:Separately billable procedures and treating other patients Critical care was necessary to treat or prevent imminent or life-threatening deterioration of the following conditions: Severe anemia and thrombocytopenia requiring transfusion. Critical care was time spent personally by me on the following activities:Development of treatment plan with patient or surrogate, evaluation of patient's response to treatment, examination of patient, obtaining history from patient or surrogate, ordering and performing treatments and interventions, ordering and review of laboratory studies, pulse oximetry, re-evaluation of patient's condition, discussions with consultants and review of old charts Prepare platelet pheresis, 2 Units (08/13/2018 2:44 AM ENGINEERING AND SCIENTIFIC PROGRAMMER)Only the most recent of2 resultswithin the time period is included. Product name PlateletsAph,LR Path [facility] DEPARTMENT OF Inactivated PATHOLOGY AND GENOMIC MEDICINE Unit number [id number] [facility] DEPARTMENT OF PATHOLOGY AND GENOMIC MEDICINE Product code [id number] [facility] DEPARTMENT OF PATHOLOGY AND GENOMIC MEDICINE Dispense status Transfused [facility] DEPARTMENT OF PATHOLOGY AND GENOMIC MEDICINE Blood expiration date [facility] DEPARTMENT OF PATHOLOGY AND GENOMIC MEDICINE Blood type code 0600 [facility] DEPARTMENT OF PATHOLOGY AND GENOMIC MEDICINE Blood type A NEGATIVE [facility] DEPARTMENT OF PATHOLOGY AND GENOMIC MEDICINE Product name Platelets, Aph#2 LR Path [facility] DEPARTMENT OF Inactiv PATHOLOGY AND GENOMIC MEDICINE Unit number [id number] [facility] DEPARTMENT OF PATHOLOGY AND GENOMIC MEDICINE Product code [id number] [facility] DEPARTMENT OF PATHOLOGY AND GENOMIC MEDICINE Dispense status Transfused [facility] DEPARTMENT OF PATHOLOGY AND GENOMIC MEDICINE Blood expiration date [facility] DEPARTMENT OF PATHOLOGY AND GENOMIC MEDICINE Blood type code 7300 [facility] DEPARTMENT OF PATHOLOGY AND GENOMIC MEDICINE Blood type B POSITIVE [facility] DEPARTMENT OF PATHOLOGY AND GENOMIC MEDICINE Performing Organization Address City/State/Zipcode Phone Number [facility] DEPARTMENT OF PATHOLOGY [address] [place] [address] AND [employer] MEDICINE Prepare RBC, 2 Units (08/13/2018 2:44 AM ENGINEERING AND SCIENTIFIC PROGRAMMER)Only the most recent of2 resultswithin the time period is included. Product name Red Blood Cells -1, [facility] DEPARTMENT OF Leukored PATHOLOGY AND GENOMIC MEDICINE Unit number [id number] [facility] DEPARTMENT OF PATHOLOGY AND GENOMIC MEDICINE Product code [id number] [facility] DEPARTMENT OF PATHOLOGY AND GENOMIC MEDICINE Dispense status Transfused [facility] DEPARTMENT OF PATHOLOGY AND GENOMIC MEDICINE Blood expiration date [facility] DEPARTMENT OF PATHOLOGY AND GENOMIC MEDICINE Blood type code 8400 [facility] DEPARTMENT OF PATHOLOGY AND GENOMIC MEDICINE Blood type AB POSITIVE [facility] DEPARTMENT OF PATHOLOGY AND GENOMIC MEDICINE Product name Red Blood Cells -1, [facility] DEPARTMENT OF Leukored PATHOLOGY AND GENOMIC MEDICINE Unit number [id number] [facility] DEPARTMENT OF PATHOLOGY AND GENOMIC MEDICINE Product code [id number] [facility] DEPARTMENT OF PATHOLOGY AND GENOMIC MEDICINE Dispense status Transfused [facility] DEPARTMENT OF PATHOLOGY AND GENOMIC MEDICINE Blood expiration date [facility] DEPARTMENT OF PATHOLOGY AND GENOMIC MEDICINE Blood type code 8400 [facility] DEPARTMENT OF PATHOLOGY AND GENOMIC MEDICINE Blood type AB POSITIVE [facility] DEPARTMENT OF PATHOLOGY AND GENOMIC MEDICINE Performing Organization Address City/[facility] Phone Number [facility] DEPARTMENT OF PATHOLOGY [address] [place] [address] AND GENOMIC MEDICINE Type and screen (08/13/2018 2:44 AM ENGINEERING AND SCIENTIFIC PROGRAMMER)Only the most recent of2 resultswithin the time period is included. ABO grouping AB [facility] DEPARTMENT OF PATHOLOGY AND GENOMIC MEDICINE Rh type POS [facility] DEPARTMENT OF PATHOLOGY AND GENOMIC MEDICINE Antibody screen (gel) NEG [facility] DEPARTMENT OF PATHOLOGY AND GENOMIC MEDICINE Specimen Blood Performing Organization Address City/[facility] Centercode Phone Number [facility] DEPARTMENT OF PATHOLOGY [address] [place] [address] AND [employer] MEDICINE Miscellaneous referral test (08/10/2018)Only the most recent of2 resultswithin the time period is included. Narrative Performed At CT Chest W Contrast Abdomen W Contrast Pelvis W Contrast (07/24/2018 5:35 PM CDT) Narrative Performed At EXAMINATION:CT CHEST W CONTRAST [...] mediastinal, retroperitoneal, mesenteric, inguinal, and iliac adenopathy. [id number] [facility], Radiology Results Incoming - 07/24/2018 6:06 PM [...] retroperitoneal, mesenteric , inguinal, and iliac adenopathy. [id number] Performing Organization Address City/State/Zipcode Phone Number [facility] [address] [place] [address] Total iron binding capacity (07/23/2018 10:40 PM CDT) Iron level 219 (H) 37 - 145 ug/dL [facility] DEPARTMENT OF PATHOLOGY AND GENOMIC MEDICINE Iron binding capacity 250 (L) 260 - 460 ug/dL [facility] DEPARTMENT OF PATHOLOGY AND GENOMIC MEDICINE % Saturation 87.6 (H) 15.0 - 38.0 % [facility] DEPARTMENT OF PATHOLOGY AND GENOMIC MEDICINE Specimen Serum Performing Organization Address City/State/Zipcode Phone Number [facility] DEPARTMENT OF PATHOLOGY [address] [place] [address] AND [facility] Rapid HIV 1 & 2 (07/23/2018 10:40 PM CDT) Rapid HIV 1 and 2 Non-Reactive Non-Reactive [facility] DEPARTMENT OF PATHOLOGY AND GENOMIC MEDICINE Specimen Blood Performing Organization Address City/[facility] Centercode Phone Number [facility] DEPARTMENT OF PATHOLOGY [address] [place] [address] AND [facility] Flow cytometry evaluation (07/23/2018 10:40 PM CDT) [facility] DEPARTMENT OF PATHOLOGY AND GENOMIC MEDICINE Flow cytometry evaluation See link below for PDF [facility] DEPARTMENT OF Lab Report PATHOLOGY AND GENOMIC MEDICINE Specimen Blood Performing Organization Address [facility]comn Phone Number [facility] DEPARTMENT OF PATHOLOGY AND [address] [place] [address] [facility] Hepatitis acute panel (07/23/2018 10:40 PM CDT) Hepatitis A IgM Non-reactive Non-reactive [facility] DEPARTMENT OF PATHOLOGY AND GENOMIC MEDICINE Hepatitis B core IgM Non-reactive Non-reactive [facility] DEPARTMENT OF PATHOLOGY AND GENOMIC MEDICINE Hepatitis B surface Ag Non-reactive Non-reactive [facility] DEPARTMENT OF PATHOLOGY AND GENOMIC MEDICINE Hepatitis C Ab Non-reactive Non-reactive [facility] DEPARTMENT OF PATHOLOGY AND GENOMIC MEDICINE Specimen Serum Performing Organization Address City/[facility] Centercode Phone Number [facility] DEPARTMENT OF PATHOLOGY AND [address] [place] [address] [facility] Immunofixation, serum (07/23/2018 10:40 PM CDT) Immunofixation, serum SEE COMMENTComment: See [facility] DEPARTMENT OF electrophoresis report below. PATHOLOGY AND GENOMIC MEDICINE Specimen Serum Narrative Performed At MARY add by pathologist reviewing [facility] DEPARTMENT OF PATHOLOGY AND GENOMIC electrophoresis. MEDICINE Performing Organization Address City/[facility]/Zipcode Phone Number [facility] DEPARTMENT OF PATHOLOGY AND [address] [place] [address] GENOMIC MEDICINE Serum electrophoresis (07/23/2018 10:40 PM CDT) Protein 5.3 (L) 6.3 - 8.3 g/dL [facility] DEPARTMENT OF Comment: PATHOLOGY AND [place] 4.6-7.0 g/dL GENOMIC MEDICINE 1 week 4.4-7.6 g/dL 7 months-1year5.1-7.3 g/dL 1-2 years5.6-7.5 g/dL >3 years6.0-8.0 g/dL 18-150 6.3-8.3 g/dL SPE albumin 3.31 (L) 4.00 - 5.30 g/dL [facility] DEPARTMENT OF PATHOLOGY AND GENOMIC MEDICINE SPE alpha 1 0.19 0.10 - 0.25 g/dL [facility] DEPARTMENT OF PATHOLOGY AND GENOMIC MEDICINE SPE alpha 2 0.56 (L) 0.58 - 0.84 g/dL [facility] DEPARTMENT OF PATHOLOGY AND GENOMIC MEDICINE SPE beta 0.69 0.50 - 1.10 g/dL [facility] DEPARTMENT OF PATHOLOGY AND GENOMIC MEDICINE SPE gamma 0.56 (L) 0.60 - 1.30 g/dL [facility] DEPARTMENT OF PATHOLOGY AND GENOMIC MEDICINE SPE extended See Comment [facility] DEPARTMENT OF interpretation Comment: PATHOLOGY AND [...] is not excluded.646 SPE interpretation See CommentComment: [facility] DEPARTMENT OF Adriane BAEZA, MPH; Catalina Cole PATHOLOGY AND PhD; Dionna Velez MD GENOMIC MEDICINE Specimen Serum Narrative Performed At MARY add by pathologist reviewing [facility] DEPARTMENT OF PATHOLOGY AND GENOMIC electrophoresis. MEDICINE Performing Organization Address City/State/Zipcode Phone Number [facility] DEPARTMENT OF PATHOLOGY AND [address] [place] [address] GENOMIC MEDICINE LDH (07/23/2018 10:40 PM CDT) LDH 129 87 - 225 U/L [facility] DEPARTMENT OF PATHOLOGY AND GENOMIC MEDICINE Specimen Serum Performing Organization Address City/[facility]/Zipcode Phone Number [facility] DEPARTMENT OF PATHOLOGY [address] [place] [address] AND GENOMIC MEDICINE Haptoglobin (07/23/2018 10:40 PM CDT) Haptoglobin 133 30 - 200 mg/dL [facility] DEPARTMENT OF PATHOLOGY AND GENOMIC MEDICINE Specimen Plasma specimen Performing Organization Address City/[facility] Centercode Phone Number [facility] DEPARTMENT OF PATHOLOGY AND [address] [place] [address] [facility] Immunoglobulin A (07/23/2018 10:40 PM CDT) IgA 77 70 - 400 mg/dL [facility] DEPARTMENT OF PATHOLOGY AND GENOMIC MEDICINE Specimen Plasma specimen Narrative Performed At MARY add by pathologist reviewing [facility] DEPARTMENT OF PATHOLOGY AND GENOMIC electrophoresis. MEDICINE Performing Organization Address City/[facility] Centercode Phone Number [facility] DEPARTMENT OF PATHOLOGY AND [address] [place] [address] [facility] MEDICINE Immunoglobulin M (07/23/2018 10:40 PM CDT) IgM <25 (L) 33 - 255 mg/dL [facility] DEPARTMENT OF PATHOLOGY AND GENOMIC MEDICINE Specimen Plasma specimen Performing Organization Address [facility] Centercode Phone Number [facility] DEPARTMENT OF PATHOLOGY AND [address] [place] [address] [facility] Immunoglobulin G (07/23/2018 10:40 PM CDT) IgG 704 700 - 1,600 mg/dL [facility] DEPARTMENT OF PATHOLOGY AND GENOMIC MEDICINE Specimen Plasma specimen Narrative Performed At MARY add by pathologist reviewing [facility] DEPARTMENT OF PATHOLOGY AND GENOMIC electrophoresis. MEDICINE Performing Organization Address City/[facility]/Zipcode Phone Number [facility] DEPARTMENT OF PATHOLOGY AND [address] [place] [address] [facility] MEDICINE Folate RBC (group test) (07/23/2018 10:40 PM CDT) RBC folate 1,451 499 - 1,504 ng/mL [facility] DEPARTMENT OF PATHOLOGY AND GENOMIC MEDICINE Specimen Blood Performing Organization Address City/[facility]/Zipcode Phone Number [facility] DEPARTMENT OF PATHOLOGY AND [address] [place], [place] [phone] [facility] Ferritin level (07/23/2018 10:40 PM CDT) Ferritin level 1,045 (H) 13 - 150 ng/mL [facility] DEPARTMENT OF PATHOLOGY AND [facility] Specimen Plasma specimen Performing Organization Address [facility] Centercode Phone Number [facility] DEPARTMENT OF PATHOLOGY AND [address] [place] [address] [facility] Vitamin B12 level (07/23/2018 10:40 PM CDT) Vitamin B12 227 211 - 946 pg/mL [facility] DEPARTMENT OF PATHOLOGY Comment: AND [facility] Significant overlap exists between normal and deficiency states. However, most patients with deficiencies will have Serum B12 <200 pg/mL. Specimen Serum Performing Organization Address [facility] Centercode Phone Number [facility] DEPARTMENT OF PATHOLOGY AND [address] [phone] [facility] XR Chest 1 Vw (07/23/2018 7:27 PM CDT) Narrative Performed At EXAMINATION: XR CHEST 1 VW RADIANT INDICATION: Coughpersistent COMPARISON: None IMPRESSION: No discrete airspace disease or pulmonary edema. Right hemidiaphragmatic eventration. No pleural effusion or pneumothorax. Cardiomediastinal silhouette within normal limits for portable technique. Probable aortic calcifications. Spondylosis. Severe left shoulder osteoarthritis. [facility]-[id number] Procedure Note Interface, Radiology Results Incoming - 07/23/2018 7:44 PM CDT EXAMINATION: XR CHEST 1 VW INDICATION: Cough persistent COMPARISON: None IMPRESSION: No discrete airspace disease or pulmonary edema. Right hemidiaphragmatic eventration. No pleural effusion or pneumothorax. Cardiomediastinal silhouette within normal limits for portable technique. Probable aortic calcifications. Spondylosis. Severe left shoulder osteoarthritis. [facility]-[id number] Performing Organization Address [facility] Centercode Phone Number [facility] [address] [place] [address] Direct Vaughn' (DEMAR) (07/23/2018 5:21 PM CDT) [id number] Polyspecific NEG [facility] DEPARTMENT OF PATHOLOGY AND GENOMIC MEDICINE IgG Vaughn, gel NEG [facility] DEPARTMENT OF PATHOLOGY AND GENOMIC MEDICINE Anti-complement NEG [facility] DEPARTMENT OF PATHOLOGY AND GENOMIC MEDICINE Specimen Blood Performing Organization Address City/[facility]/Zipcode Phone Number [facility] DEPARTMENT OF PATHOLOGY [id number] [place] [address] AND [facility] MEDICINE Blood smear consult (07/23/2018 5:19 PM CDT) Blood smear consult Footnote [facility] DEPARTMENT OF Comment: PATHOLOGY AND GENOMIC Increase in Lymphocytes and increase in smudged lymphocytes, MEDICINE Thrombocytopenia, called to Abril Morrisseyt112:00. History of CLL.Slide reviewed by pathologist, Dr. Higgins. Performing Organization Address City/[facility] Centercode Phone Number [facility] DEPARTMENT OF PATHOLOGY [address] [place] [address]. [place] [address] AND [facility] MEDICINE Lipase level (07/23/2018 5:19 PM CDT) Lipase 25 13 - 60 U/L [facility] DEPARTMENT OF PATHOLOGY AND GENOMIC MEDICINE Specimen Plasma specimen Performing Organization Address [facility] Centercode Phone Number [facility] DEPARTMENT OF PATHOLOGY [address] [place] [address]. [place] [address] AND [facility] Amylase level (07/23/2018 5:19 PM CDT) Amylase 15 13 - 73 U/L [facility] DEPARTMENT OF PATHOLOGY AND GENOMIC MEDICINE Specimen Plasma specimen Performing Organization Address City/[facility] Centercode Phone Number [facility] DEPARTMENT OF PATHOLOGY [address] [place] [address]. [place] [address] AND [employer] MEDICINE ECG 12 lead (07/23/2018 5:09 PM CDT) Ventricular rate 76 [facility] Atrial rate 76 [facility] IN interval 156 [facility] QRSD interval 82 [facility] QT interval 366 [facility] QTC interval 411 [facility] P axis 1 2 [facility] QRS axis 1 32 [facility] T wave axis 20 [facility] EKG impression Normal sinus rhythm-Cannot rule out Anterior [facility] MUSE infarct , age undetermined-Abnormal ECG-No previous ECGs available- Performing Organization Address City/[facility]/Zipcode Phone Number [facility] MUSE [address] [place] [address] after 08/21/2017 Insurance Payer Benefit Plan / Group Subscriber ID Type Phone Address [employer]IG [employer] PepperBLANCHARD [facility] ADV xxxxxxxx O Advance Directives Patient has advance care planning documents on file. For more information, please contact:Manan Thomas[address] [place] [address]
[2018-08-22 14:41] VITALS: BP 118/61; TEMP 97.7; O2SAT 97; BMI 34.5
[2018-08-22] MEDS ORDERED: NA CHLORIDE 0.9% 50 ML ONE (15:03)
[2018-08-22 15:54] LABS: MPV 8.3 fL (7.6-11.3)
[2018-08-22 16:31] LABS: Platelet Estimate DECR
== END 2018-08-22 15:42 | disposition home or self-care (01) ==
LOC: DS 12:40
PROVIDERS: ATTEND Internal Medicine
DX: C91.90 Lymphoid leukemia, unspecified not having achieved remission (principal); D69.59 Other secondary thrombocytopenia
CPT/HCPCS: 36415; 36430; 85049; 86900; 86901; P9035

== ENCOUNTER 2018-08-29 11:21 | Inpatient (IN) | payer OTHER ==
--- OUTSIDE RECORDS SUMMARY | 2018-08-29 11:24 | XMS REPORT | Clinical Summary ---
:1950 Author Organization [facility] Address [address] [place] [address] Care Team Providers Name Role Phone Edith [...] by mouth unit capsule once a week. ferrous sulfate Take 1 tablet 30 tablet 0 07/25/2018 Active (FERROUSUL) 325 (65 (325 mg total) 9 FE) MG tablet by mouth daily with breakfast. ciprofloxacin Take 500 mg by 0 Active (CIPRO) 500 MG mouth 2 (two) tablet times a day. ondansetron (ZOFRAN) Take 4 mg by 0 Active 4 MG tablet mouth every 8 (eight) hours as needed for nausea or vomiting. ibrutinib (IMBRUVICA Take by mouth. 0 Discontinued ORAL) 8 traMADol (ULTRAM) 50 Take 1 tablet 30 tablet 0 07/25/2018 Discontinued mg tablet (50 mg total) 8 by mouth every 6 (six) hours as needed for moderate pain for up to 30 days. ondansetron ODT Take 1 tablet 10 tablet 0 07/25/2018 (ZOFRAN-ODT) 4 MG (4 mg total) 8 disintegrating by mouth every tablet 8 (eight) hours as needed for nausea or vomiting for up to 30 days. Active Problems Problem Noted Date CLL (chronic lymphocytic leukemia) 07/24/2018 Anemia 07/24/2018 Hematochezia 07/24/2018 Splenomegaly 07/24/2018 Thrombocytopenia 07/23/2018 Encounters Date Type Specialty Care Team Description 08/28/2018 Office Visit Gynecologic Georgina Hanley Oncology MD Darrel 08/13/2018 - Emergency General Internal Higinio Hand Thrombocytopenia ( HCC) (Primary Dx); 08/14/2018 Medicine Javad Hsieh Anemia, unspecified type; CLL (chronic lymphocytic leukemia) (HCC) Rico Heath MD 08/10/2018 Orders Only Oncology Allie Garza MD 08/07/2018 Telephone Oncology Carine Jacobsen, HARLEY 07/27/2018 Orders Only Oncology Delmar Anemia, unspecified type HARLEY Hawk (Primary Dx) 07/26/2018 Telephone Oncology Pat Hurtado MA 07/26/2018 Orders Only Oncology Genesis, Pat, Anemia, unspecified type ( Primary Dx); MA Thrombocytopenia (HCC) 07/26/2018 Orders Only Oncology Wally Hurtadoia, Anemia, unspecified type ( Primary Dx); MA Thrombocytopenia (HCC) 07/23/2018 - Emergency General Internal Don Pickard Thrombocytopenia ( HCC) (Primary Dx); 07/25/2018 Medicine MD Alejandra Anemia, unspecified type Ivis Hughes MD Opara, Emmanuel C., MD after 08/28/2017 Family History Medical History Relation Name Comments Pancreatic cancer Father Alzheimer's disease Mother Osteoporosis Mother Diabetes Paternal Grandmother Relation Name Status Comments Father Mother Paternal Grandmother Social History Tobacco Use Types Packs/Day Years [...] Vital Sign Reading Time Taken Blood Pressure 163/87 08/28/2018 1:06 PM [facility] Pulse 84 08/28/2018 1:06 PM [facility] Temperature 36.8 C (98.2 F) 08/14/2018 11:28 AM [facility] Respiratory Rate 19 08/14/2018 11:28 AM [facility] Oxygen Saturation 98% 08/14/2018 11:28 AM [facility] Inhaled Oxygen Concentration - - Weight 87.1 kg (192 lb) 08/28/2018 1:06 PM [facility] Height 160 cm (5' 3") 08/28/2018 1:06 PM [facility] Body Mass Index 34.01 08/28/2018 1:06 PM [facility] Plan of Treatment Date Type Specialty Care Team Description 09/26/2018 Clinical Support Gynecologic Oncology Health Maintenance Due Date Last Done Comments BREAST CANCER SCREENING 02/25/2002 COLON CANCER SCREENING 02/25/2002 SHINGRIX VACCINE (1 of 2) 02/25/2002 ZOSTER VACCINE 2012 PNEUMOCOCCAL POLYSACCHARIDE VACCINE AGE 65 AND OVER 02/25/2017 PNEUMOCOCCAL-13 02/25/2017 INFLUENZA VACCINE 05/09/2018 Implants Implanted Type Area Driller Multiple Spindle Device Shelf Model / Identifier Expiration Serial / Date Lot Bone Plate Bone Left: Ankle Plate Bone Plate-01/21/2003 Bone Left: Ankle Implanted: 01/21/2003 (Quantity not on file) Plate Mesh-10/14/2005 Mesh Abdomen, Implanted: 10/14/2005 (Quantity not on file) Middle Quadrant/Non Specific Procedures Procedure Name Priority Date/Time Associated Comments Diagnosis MANUAL DIFFERENTIAL Routine 08/14/2018 5:58 Results for this AM [facility] procedure are in the results section. ESTIMATED GFR Routine 08/14/2018 5:58 Results for this AM [facility] procedure are in the results section. BASIC METABOLIC PANEL Routine 08/14/2018 5:58 Results for this AM [facility] procedure are in the results section. CBC WITH PLATELET AND Routine 08/14/2018 5:58 Results for this DIFFERENTIAL AM [facility] procedure are in the results section. MANUAL DIFFERENTIAL Routine 08/13/2018 8:35 Results for this PM [facility] procedure are in the results section. CBC WITH PLATELET AND Routine 08/13/2018 8:35 Results for this DIFFERENTIAL PM [facility] procedure are in the results section. TRANSFUSE PLATELETS STAT 08/13/2018 7:08 PM [facility] TRANSFUSE PLATELETS STAT 08/13/2018 5:31 PM [facility] TRANSFUSE RED BLOOD STAT 08/13/2018 2:53 CELLS PM [facility] TRANSFUSE RED BLOOD STAT 08/13/2018 10:25 CELLS AM [facility] TROPONIN Timed 08/13/2018 7:50 Results for this AM [facility] procedure are in the results section. URINALYSIS SCREEN AND STAT 08/13/2018 3:36 Results for this MICROSCOPY, WITH REFLEX AM [facility] procedure are in TO CULTURE the results section. URINE CULTURE STAT 08/13/2018 3:36 Results for this AM [facility] procedure are in the results section. MANUAL DIFFERENTIAL STAT 08/13/2018 3:31 Results for this AM [facility] procedure are in the results section. ESTIMATED GFR STAT 08/13/2018 3:31 Results for this AM [facility] procedure are in the results section. MAGNESIUM LEVEL STAT 08/13/2018 3:31 Results for this AM [facility] procedure are in the results section. RETICULOCYTE COUNT STAT 08/13/2018 3:31 Results for this AM [facility] procedure are in the results section. TROPONIN STAT 08/13/2018 3:31 Results for this AM [facility] procedure are in the results section. PARTIAL THROMBOPLASTIN STAT 08/13/2018 3:31 Results for this TIME (PTT) AM [facility] procedure are in the results section. PROTHROMBIN TIME WITH STAT 08/13/2018 3:31 Results for this INR AM [facility] procedure are in the results section. COMPREHENSIVE METABOLIC STAT 08/13/2018 3:31 Results for this PANEL AM [facility] procedure are in the results section. CBC WITH PLATELET AND STAT 08/13/2018 3:31 Results for this DIFFERENTIAL AM [facility] procedure are in the results section. ECG ED PRELIMINARY Routine 08/13/2018 3:17 Results for this INTERPRETATION AM [facility] procedure are in the results section. [place] CRITICAL CARE, E/M Routine 08/13/2018 3:17 Results for this 30-74 MINUTES AM [facility] procedure are in the results section. ECG 12-LEAD STAT 08/13/2018 2:49 AM [facility] PREPARE PLATELET STAT 08/13/2018 2:44 Results for this PHERESIS AM [facility] procedure are in the results section. PREPARE RBC STAT 08/13/2018 2:44 Results for this AM [facility] procedure are in the results section. TYPE AND SCREEN STAT 08/13/2018 2:44 Results for this AM [facility] procedure are in the results section. MISCELLANEOUS [...] procedure are in the results section. after 08/28/2017 Results Estimated GFR (08/14/2018 5:58 AM [facility])Only the most recent of5 resultswithin the time period is included. Estimated GFR >=90 mL/min/1.73 m2 [facility] DEPARTMENT OF Comment: PATHOLOGY AND GENOMIC CatergoryUnitsInterpretation MEDICINE G1 >=90 Normal or high G2 60-89Mildly decreased [id number] to moderately decreased [id number] to severely decreased G4 15-29Severely decreased G5 <15Kidney failure The eGFR was calculated using the Chronic Kidney Disease Epidemiology Collaboration (CKD-EPI) equation. Interpretation is based on recommendations of the National Kidney Foundation-Kidney Disease Outcomes Quality Initiative (NKF-KDOQI) published in 2014. Specimen Plasma specimen Performing Organization Address City/State/Zipcode Phone Number [facility] DEPARTMENT OF PATHOLOGY [address] [place] [address] AND GENOMIC MEDICINE Manual differential (08/14/2018 5:58 AM [facility])Only the most recent of7 resultswithin the time period is included. Manual differential PERFORMED [facility] DEPARTMENT OF PATHOLOGY AND GENOMIC MEDICINE Neutrophils 3.0 (L) 39.0 - 69.0 % [facility] DEPARTMENT OF PATHOLOGY AND GENOMIC MEDICINE Lymphocytes 97.0 (H) 25.0 - 45.0 % [facility] DEPARTMENT OF PATHOLOGY AND GENOMIC MEDICINE Monocytes 0.0 0.0 - 10.0 % [facility] DEPARTMENT OF PATHOLOGY AND GENOMIC MEDICINE Eosinophils 0.0 0.0 - 5.0 % [facility] DEPARTMENT OF PATHOLOGY AND GENOMIC MEDICINE Basophils 0.0 0.0 - 1.0 % [facility] DEPARTMENT OF PATHOLOGY AND GENOMIC MEDICINE Reactive lymphocytes Few [facility] DEPARTMENT OF PATHOLOGY AND GENOMIC MEDICINE Platelet slide review Mkd decreased (A) [facility] DEPARTMENT OF PATHOLOGY AND GENOMIC MEDICINE Anisocytosis Moderate [facility] DEPARTMENT OF PATHOLOGY AND GENOMIC MEDICINE Polychromasia Moderate [facility] DEPARTMENT OF PATHOLOGY AND GENOMIC MEDICINE Spherocytes Occasional [facility] DEPARTMENT OF PATHOLOGY AND GENOMIC MEDICINE Ovalocytes Moderate [facility] DEPARTMENT OF PATHOLOGY AND GENOMIC MEDICINE Smudge cells Few [facility] DEPARTMENT OF PATHOLOGY AND GENOMIC MEDICINE Performing Organization Address City/State/Zipcode Phone Number [facility] DEPARTMENT OF PATHOLOGY [address] [place] [address] AND GENOMIC MEDICINE CBC with platelet and differential (08/14/2018 5:58 AM [facility])Only the most recent of7 resultswithin the time period is included. WBC 2.2 (L) 4.5 - 11.0 k/uL [facility] DEPARTMENT OF PATHOLOGY AND GENOMIC MEDICINE RBC 3.17 (L) 4.20 - 5.50 m/uL [facility] DEPARTMENT OF PATHOLOGY AND GENOMIC MEDICINE HGB 9.7 (L) 12.0 - 16.0 g/dL [facility] DEPARTMENT OF PATHOLOGY AND GENOMIC MEDICINE HCT 27.9 (L) 37.0 - 47.0 % [facility] DEPARTMENT OF PATHOLOGY AND GENOMIC MEDICINE MCV 88.0 82.0 - 100.0 fL [facility] DEPARTMENT OF PATHOLOGY AND GENOMIC MEDICINE MCH 30.6 27.0 - 34.0 pg [facility] DEPARTMENT OF PATHOLOGY AND GENOMIC MEDICINE MCHC 34.8 31.0 - 37.0 g/dL [facility] DEPARTMENT OF PATHOLOGY AND GENOMIC MEDICINE RDW - SD 44.6 37.0 - 55.0 fL [facility] DEPARTMENT OF PATHOLOGY AND GENOMIC MEDICINE MPV 10.4 6.9 - 11.0 fL [facility] DEPARTMENT OF PATHOLOGY AND GENOMIC MEDICINE Platelet count 35 (LL) 150 - 400 K/uL [facility] DEPARTMENT OF PATHOLOGY Comment: AND GENOMIC MEDICINE Final results called to and read back by ARNALDO ROBERTSON RN 08/14/2018 08:04 JLABQLD/ CU Nucleated RBC 0.00 /100 WBC [facility] DEPARTMENT OF PATHOLOGY AND GENOMIC MEDICINE Neutrophils 3.0 (L) 39.0 - 69.0 % [facility] DEPARTMENT OF PATHOLOGY AND GENOMIC MEDICINE Lymphocytes 97.0 (H) 25.0 - 45.0 % [facility] DEPARTMENT OF PATHOLOGY AND GENOMIC MEDICINE Monocytes 0.0 0.0 - 10.0 % [facility] DEPARTMENT OF PATHOLOGY AND GENOMIC MEDICINE Eosinophils 0.0 0.0 - 5.0 % [facility] DEPARTMENT OF PATHOLOGY AND GENOMIC MEDICINE Basophils 0.0 0.0 - 1.0 % [facility] DEPARTMENT OF PATHOLOGY AND GENOMIC MEDICINE Specimen Blood Performing Organization Address City/[facility] Phone Number [facility] DEPARTMENT PATHOLOGY [address] [place] [address] AND [employer] [facility] Basic metabolic panel (08/14/2018 5:58 AM [facility])Only the most recent of3 resultswithin the time period is included. Sodium 141 135 - 148 mEq/L [facility] DEPARTMENT OF PATHOLOGY AND GENOMIC MEDICINE Potassium 4.1 3.5 - 5.0 mEq/L [facility] DEPARTMENT OF PATHOLOGY AND GENOMIC MEDICINE Chloride 104 98 - 112 mEq/L [facility] DEPARTMENT OF PATHOLOGY AND GENOMIC MEDICINE CO2 24 24 - 31 mEq/L [facility] DEPARTMENT OF PATHOLOGY AND GENOMIC MEDICINE Anion gap 13@ANIO 7 - 15 mEq/L [facility] DEPARTMENT OF PATHOLOGY AND GENOMIC MEDICINE BUN 11 8 - 23 mg/dL [facility] DEPARTMENT OF PATHOLOGY AND GENOMIC MEDICINE Creatinine 0.69 0.50 - 0.90 mg/dL [facility] DEPARTMENT OF PATHOLOGY AND [employer] MEDICINE Glucose 107 (H) 65 - 99 mg/dL [facility] DEPARTMENT OF PATHOLOGY AND GENOMIC MEDICINE Calcium 9.1 8.8 - 10.2 mg/dL [facility] DEPARTMENT OF PATHOLOGY AND GENOMIC MEDICINE Specimen Plasma specimen Performing Organization Address City/[facility] Phone Number [facility] PATHOLOGY [address] [facility] [place], [place] [id number] [place] [address] [employer] [facility] Transfuse platelets (08/13/2018 7:08 PM [facility])Only the most recent of6 resultswithin the time period is included.Transfuse RBC (08/13/2018 2:53 PM [facility] )Only the most recent of4 resultswithin the time period is included.Troponin ( 7:50 AM [facility])Only the most recent of3 resultswithin the time period is included. Troponin <0.30 0.00 - 0.30 ng/mL [facility] DEPARTMENT OF PATHOLOGY Comment: AND GENOMIC MEDICINE 0.11 - 1.49 ng/mlMay indicate increased risk of acute coronary syndrome. >=1.5 ng/mlConsistent with acute myocardial infarction. The diagnostic value of a single normal or non-diagnostic result is questionable.Serial samples at 2-6 hour intervals are required to rule out acute myocardial injury. Specimen Plasma specimen Performing Organization Address City/State/Zipcode Phone Number [facility] DEPARTMENT OF PATHOLOGY [address] [place] [id number] AND [employer] [facility] Urinalysis screen and microscopy, with reflex to culture (08/13/2018 3:36 AM 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 Specimen site Clean catch [facility] DEPARTMENT OF PATHOLOGY AND GENOMIC MEDICINE Color, UA Straw [facility] DEPARTMENT OF PATHOLOGY AND GENOMIC MEDICINE Appearance, UA Clear [facility] DEPARTMENT OF PATHOLOGY AND GENOMIC MEDICINE Specific gravity, UA 1.008 1.001 - 1.030 [facility] DEPARTMENT OF PATHOLOGY AND GENOMIC MEDICINE pH, UA 6.0 5.0 - 9.0 [facility] DEPARTMENT OF PATHOLOGY AND GENOMIC MEDICINE Protein, UA Negative Negative [facility] DEPARTMENT OF PATHOLOGY AND GENOMIC MEDICINE Glucose, UA Negative Negative [facility] DEPARTMENT OF PATHOLOGY AND GENOMIC MEDICINE Ketones, UA Negative Negative [facility] DEPARTMENT OF PATHOLOGY AND GENOMIC MEDICINE Bilirubin, UA Negative Negative [facility] DEPARTMENT OF PATHOLOGY AND GENOMIC MEDICINE Blood, UA Negative Negative [facility] DEPARTMENT OF PATHOLOGY AND GENOMIC MEDICINE Nitrite, UA Negative Negative [facility] DEPARTMENT OF PATHOLOGY AND GENOMIC MEDICINE Urobilinogen, UA <2.0 <2.0 E.U./dL [facility] DEPARTMENT OF PATHOLOGY AND GENOMIC MEDICINE Leukocyte esterase, UA Negative Negative [facility] DEPARTMENT OF PATHOLOGY AND GENOMIC MEDICINE Epithelial cells, UA <1 /HPF [facility] DEPARTMENT OF PATHOLOGY AND GENOMIC MEDICINE WBC, UA <1 0 - 4 /HPF [facility] DEPARTMENT OF PATHOLOGY AND GENOMIC MEDICINE RBC, UA <1 0 - 5 /HPF [facility] DEPARTMENT OF PATHOLOGY AND GENOMIC MEDICINE Bacteria, UA None seen None seen [facility] DEPARTMENT OF PATHOLOGY AND GENOMIC MEDICINE Yeast, UA None seen [facility] DEPARTMENT OF PATHOLOGY AND GENOMIC MEDICINE Yeast with pseudohyphae, UA None seen [facility] DEPARTMENT OF PATHOLOGY AND GENOMIC MEDICINE Specimen Urine Performing Organization Address City/State/Zipcode Phone Number [facility] DEPARTMENT OF PATHOLOGY [address] [place] [phone] AND [employer] Urine culture (08/13/2018 3:36 AM 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 Urine culture SEE COMMENTComment: Bacteriuria [facility] DEPARTMENT OF PATHOLOGY screen negative. AND GENOMIC MEDICINE Performing Organization Address City/State/Zipcode Phone Number [facility] DEPARTMENT OF PATHOLOGY [address] [place] [address]. [place] [address] AND [facility] Partial thromboplastin time, activated (08/13/2018 3:31 AM 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 PTT 29.5 23.0 - 36.0 sec [facility] DEPARTMENT OF Comment: PATHOLOGY AND [facility] PTT therapeutic range for unfractionated heparin is MEDICINE 61.0-112.0 seconds which corresponds to Anti-Xa 0.3-0.7 U/ml. Specimen Blood Performing Organization Address City/[facility] Phone Number [facility] DEPARTMENT OF PATHOLOGY [address] [place] [address]. [place] [address] AND [facility] Prothrombin time with INR (08/13/2018 3:31 AM 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 Prothrombin time 13.1 11.5 - 14.5 sec [facility] DEPARTMENT OF PATHOLOGY AND [employer] [facility] INR 1.0 [facility] DEPARTMENT OF Comment: PATHOLOGY AND [facility] The International Normalized Ratio (INR) is a therapeutic MEDICINE monitoring tool for patients who are stable on oral anticoagulant therapy. An INR of 2.0-3.0 is suggested for deep vein thrombosis/pulmonary embolism. Specimen Blood Performing Organization Address [facility] Phone Number [facility] DEPARTMENT OF PATHOLOGY [address] [place] [address]. [place] [address] AND [employer] [facility] Reticulocyte count (08/13/2018 3:31 AM 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 Retic %, auto 0.3 (L) 0.5 - 2.1 % [facility] DEPARTMENT OF PATHOLOGY AND [employer] [facility] Retic absolute, auto 0.0080 (L) 0.0210 - 0.1155 m/uL [facility] DEPARTMENT OF PATHOLOGY AND [employer] [facility] Specimen Blood Performing Organization Address City/[facility]/Zipcode Phone Number [facility] DEPARTMENT OF PATHOLOGY [address] [place] [address]. [place] [address] AND [facility] Magnesium level (08/13/2018 3:31 AM [facility]) Magnesium 2.0 1.6 - 2.4 mg/dL [facility] DEPARTMENT OF PATHOLOGY AND [employer] [facility] Specimen Plasma specimen Performing Organization Address City/[facility] Phone Number [facility] DEPARTMENT OF PATHOLOGY [address] [place] [address]. [place] [phone] AND [employer] [facility] Comprehensive metabolic panel (08/13/2018 3:31 AM 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 Sodium 143 135 - 148 mEq/L [facility] DEPARTMENT OF PATHOLOGY AND GENOMIC MEDICINE Potassium 4.1 3.5 - 5.0 mEq/L [facility] DEPARTMENT OF PATHOLOGY AND GENOMIC MEDICINE Chloride 107 98 - 112 mEq/L [facility] DEPARTMENT OF PATHOLOGY AND GENOMIC MEDICINE CO2 24 24 - 31 mEq/L [facility] DEPARTMENT OF PATHOLOGY AND GENOMIC MEDICINE Anion gap 12@ANIO 7 - 15 mEq/L [facility] DEPARTMENT OF PATHOLOGY AND [employer] MEDICINE BUN 13 8 - 23 mg/dL [facility] DEPARTMENT OF PATHOLOGY AND [employer] MEDICINE Creatinine 0.78 0.50 - 0.90 mg/dL [facility] DEPARTMENT OF PATHOLOGY AND [employer] MEDICINE Glucose 112 (H) 65 - 99 mg/dL [facility] DEPARTMENT OF PATHOLOGY AND GENOMIC MEDICINE Calcium 9.4 8.8 - 10.2 mg/dL [facility] DEPARTMENT OF PATHOLOGY AND GENOMIC MEDICINE Protein 6.4 6.3 - 8.3 g/dL [facility] DEPARTMENT OF PATHOLOGY AND GENOMIC MEDICINE Albumin 3.9 3.5 - 5.0 g/dL [facility] DEPARTMENT OF PATHOLOGY AND GENOMIC MEDICINE A/G ratio 1.6 0.7 - 3.8 [facility] DEPARTMENT OF PATHOLOGY AND GENOMIC MEDICINE Alkaline phosphatase 66 35 - 104 U/L [facility] DEPARTMENT OF PATHOLOGY AND GENOMIC MEDICINE AST 13 10 - 35 U/L [facility] DEPARTMENT OF PATHOLOGY AND GENOMIC MEDICINE ALT 9 5 - 50 U/L [facility] DEPARTMENT OF PATHOLOGY AND [employer] MEDICINE Total bilirubin 0.3 0.2 - 1.2 mg/dL [facility] DEPARTMENT OF PATHOLOGY AND [employer] MEDICINE Specimen Plasma specimen Performing Organization Address City/State/Zipcode Phone Number [facility] DEPARTMENT OF PATHOLOGY [address] [facility] [place] [address] AND [employer] [facility] ECG ED Preliminary Interpretation - NOT AN ORDER (08/13/2018 3:17 AM 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 Narrative Performed At Higinio Hand MD 08/14/20188:40 PM ECG ED Preliminary Interpretation - Not an Order Performed by: HIGINIO HAND Authorized by: HIGINIO HAND ECG reviewed by ED Physician in the absence of a judicial registrar: yes Interpretation: Interpretation: abnormal Rate: ECG rate:83 ECG rate assessment: normal Rhythm: Rhythm: sinus rhythm Ectopy: Ectopy: none QRS: QRS axis:Normal QRS intervals:Normal ST segments: ST segments:Normal T waves: T waves: non-specific CRITICAL CARE (08/13/2018 3:17 AM [facility]) Narrative Performed At Higinio Hand MD 08/14/20188:40 [...] platelet pheresis, 2 Units (08/13/2018 2:44 AM 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 Product name PlateletsAph,LR Path [facility] DEPARTMENT OF Inactivated PATHOLOGY AND GENOMIC MEDICINE Unit number [id number] [facility] DEPARTMENT OF PATHOLOGY AND GENOMIC MEDICINE Product code [id number] [facility] DEPARTMENT OF PATHOLOGY AND GENOMIC MEDICINE Dispense status Transfused [facility] DEPARTMENT OF PATHOLOGY AND GENOMIC MEDICINE Blood expiration date [facility] DEPARTMENT OF PATHOLOGY AND GENOMIC MEDICINE Blood type code 0600 [facility] DEPARTMENT OF PATHOLOGY AND GENOMIC MEDICINE Blood type A NEGATIVE [facility] DEPARTMENT OF PATHOLOGY AND GENOMIC MEDICINE Product name Platelets, Aph#2 LR Path [facility] DEPARTMENT OF Inactiv PATHOLOGY AND GENOMIC MEDICINE Unit number [id number] [facility] DEPARTMENT OF PATHOLOGY AND GENOMIC MEDICINE Product code [id number] [facility] DEPARTMENT OF PATHOLOGY AND GENOMIC MEDICINE Dispense status Transfused [facility] DEPARTMENT OF PATHOLOGY AND GENOMIC MEDICINE Blood expiration date [facility] DEPARTMENT OF PATHOLOGY AND GENOMIC MEDICINE Blood type code 7300 [facility] DEPARTMENT OF PATHOLOGY AND GENOMIC MEDICINE Blood type B POSITIVE [facility] DEPARTMENT OF PATHOLOGY AND GENOMIC MEDICINE Performing Organization Address City/State/[facility] Phone Number [facility] DEPARTMENT OF PATHOLOGY [address] [place] [address] AND [employer] [facility] Prepare RBC, 2 Units (08/13/2018 2:44 AM 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 Product name Red Blood Cells -1, [facility] DEPARTMENT OF Leukored PATHOLOGY AND GENOMIC MEDICINE Unit number [id number] [facility] DEPARTMENT OF PATHOLOGY AND GENOMIC MEDICINE Product code [id number] [facility] DEPARTMENT OF PATHOLOGY AND GENOMIC MEDICINE Dispense status Transfused [facility] DEPARTMENT OF PATHOLOGY AND GENOMIC MEDICINE Blood expiration date [facility] DEPARTMENT OF PATHOLOGY AND GENOMIC MEDICINE Blood type code 8400 [facility] DEPARTMENT OF PATHOLOGY AND GENOMIC MEDICINE Blood type AB POSITIVE [facility] DEPARTMENT OF PATHOLOGY AND GENOMIC MEDICINE Product name Red Blood Cells -1, [facility] DEPARTMENT OF Leukored PATHOLOGY AND GENOMIC MEDICINE Unit number [id number] [facility] DEPARTMENT OF PATHOLOGY AND GENOMIC MEDICINE Product code [id number] [facility] DEPARTMENT OF PATHOLOGY AND GENOMIC MEDICINE Dispense status Transfused [facility] DEPARTMENT OF PATHOLOGY AND GENOMIC MEDICINE Blood expiration date [facility] DEPARTMENT OF PATHOLOGY AND GENOMIC MEDICINE Blood type code 8400 [facility] DEPARTMENT OF PATHOLOGY AND GENOMIC MEDICINE Blood type AB POSITIVE [facility] DEPARTMENT OF PATHOLOGY AND GENOMIC MEDICINE Performing Organization Address [facility] Phone Number [facility] DEPARTMENT OF PATHOLOGY [address] [place] [address] AND [employer] Type and screen (08/13/2018 2:44 AM 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 ABO grouping AB [facility] DEPARTMENT OF PATHOLOGY AND GENOMIC MEDICINE Rh type POS [facility] DEPARTMENT OF PATHOLOGY AND GENOMIC MEDICINE Antibody screen (gel) NEG [facility] DEPARTMENT OF PATHOLOGY AND GENOMIC MEDICINE Specimen Blood Performing Organization Address City/[facility] Phone Number [facility] PATHOLOGY [address] [place] [address] AND [employer] [facility] Miscellaneous referral test (08/10/2018)Only the most recent [...] mediastinal, retroperitoneal, mesenteric, inguinal, and iliac adenopathy. [id number] Procedure Note Interface, Radiology Results Incoming - [...] retroperitoneal, mesenteric , inguinal, and iliac adenopathy. [id number] Performing Organization Address City/[facility]/Zipcode Phone Number [facility] [address] [place] [address] Total iron binding capacity (07/23/2018 10:40 PM CDT) Iron level 219 (H) 37 - 145 ug/dL [facility] DEPARTMENT OF PATHOLOGY AND GENOMIC MEDICINE Iron binding capacity 250 (L) 260 - 460 ug/dL [facility] DEPARTMENT OF PATHOLOGY AND GENOMIC MEDICINE % Saturation 87.6 (H) 15.0 - 38.0 % [facility] DEPARTMENT OF PATHOLOGY AND GENOMIC MEDICINE Specimen Serum Performing Organization Address City/[facility] Phone Number [facility] DEPARTMENT OF PATHOLOGY [address] [place] [address] AND [facility] Rapid HIV 1 & 2 (07/23/2018 10:40 PM CDT) Rapid HIV 1 and 2 Non-Reactive Non-Reactive [facility] DEPARTMENT OF PATHOLOGY AND GENOMIC MEDICINE Specimen Blood Performing Organization Address City/[facility] Phone Number [facility] DEPARTMENT OF PATHOLOGY [address] [place] [address] AND [facility] Flow cytometry evaluation (07/23/2018 10:40 PM CDT) [facility] DEPARTMENT OF PATHOLOGY AND GENOMIC MEDICINE Flow cytometry evaluation See link below for PDF [facility] DEPARTMENT OF Lab Report PATHOLOGY AND GENOMIC MEDICINE Specimen Blood Performing Organization Address City/[facility] Phone Number [facility] DEPARTMENT OF PATHOLOGY AND [address] [place] [address] [facility] Hepatitis acute panel (07/23/2018 10:40 PM CDT) Hepatitis A IgM Non-reactive Non-reactive [facility] DEPARTMENT OF PATHOLOGY AND GENOMIC MEDICINE Hepatitis B core IgM Non-reactive Non-reactive [facility] DEPARTMENT OF PATHOLOGY AND GENOMIC MEDICINE Hepatitis B surface Ag Non-reactive Non-reactive [facility] DEPARTMENT OF PATHOLOGY AND GENOMIC MEDICINE Hepatitis C Ab Non-reactive Non-reactive [facility] DEPARTMENT OF PATHOLOGY AND GENOMIC MEDICINE Specimen Serum Performing Organization Address City/[facility]/Zipcode Phone Number [facility] DEPARTMENT OF PATHOLOGY AND [address] [place] [address] [facility] MEDICINE Immunofixation, serum (07/23/2018 10:40 PM CDT) Immunofixation, serum SEE COMMENTComment: See [facility] DEPARTMENT OF electrophoresis report below. PATHOLOGY AND GENOMIC MEDICINE Specimen Serum Narrative Performed At [facility] by pathologist reviewing [facility] DEPARTMENT OF PATHOLOGY AND GENOMIC electrophoresis. MEDICINE Performing Organization Address City/State/Zipcode Phone Number [facility] DEPARTMENT OF PATHOLOGY AND [address] [place] [address] GENOMIC MEDICINE Serum electrophoresis (07/23/2018 10:40 PM CDT) Protein 5.3 (L) 6.3 - 8.3 g/dL [facility] DEPARTMENT OF Comment: PATHOLOGY AND [place] 4.6-7.0 g/dL GENOMIC MEDICINE 1 week 4.4-7.6 g/dL 7 months-1year5.1-7.3 g/dL 1-2 years5.6-7.5 g/dL >3 years6.0-8.0 g/dL 18-150 6.3-8.3 g/dL SPE albumin 3.31 (L) 4.00 - 5.30 g/dL [facility] DEPARTMENT OF PATHOLOGY AND GENOMIC MEDICINE SPE alpha 1 0.19 0.10 - 0.25 g/dL [facility] DEPARTMENT OF PATHOLOGY AND GENOMIC MEDICINE SPE alpha 2 0.56 (L) 0.58 - 0.84 g/dL [facility] DEPARTMENT OF PATHOLOGY AND GENOMIC MEDICINE SPE beta 0.69 0.50 - 1.10 g/dL [facility] DEPARTMENT OF PATHOLOGY AND GENOMIC MEDICINE SPE gamma 0.56 (L) 0.60 - 1.30 g/dL [facility] DEPARTMENT OF PATHOLOGY AND GENOMIC MEDICINE SPE extended See Comment [facility] DEPARTMENT OF interpretation Comment: PATHOLOGY AND [...] excluded.646 SPE interpretation See CommentComment: Juan F [facility] DEPARTMENT OF Adriane BAEZA, MPH; Catalina Cole PATHOLOGY AND PhD; Dionna Velez MD GENOMIC MEDICINE Specimen Serum Narrative Performed At [facility] add by pathologist reviewing [facility] DEPARTMENT OF PATHOLOGY AND GENOMIC electrophoresis. MEDICINE Performing Organization Address City/State/Zipcode Phone Number [facility] DEPARTMENT OF PATHOLOGY AND [address] [place] [address] GENOMIC MEDICINE LDH (07/23/2018 10:40 PM CDT) LDH 129 87 - 225 U/L [facility] DEPARTMENT OF PATHOLOGY AND GENOMIC MEDICINE Specimen Serum Performing Organization Address City/State/Zipcode Phone Number [facility] DEPARTMENT OF PATHOLOGY [address] [place] [address] AND GENOMIC MEDICINE Haptoglobin (07/23/2018 10:40 PM CDT) Haptoglobin 133 30 - 200 mg/dL [facility] DEPARTMENT OF PATHOLOGY AND GENOMIC MEDICINE Specimen Plasma specimen Performing Organization Address City/[facility]/Zipcode Phone Number [facility] DEPARTMENT OF PATHOLOGY AND [address] [place] [address] MEDICINE Immunoglobulin A (07/23/2018 10:40 PM CDT) IgA 77 70 - 400 mg/dL [facility] DEPARTMENT OF PATHOLOGY AND GENOMIC MEDICINE Specimen Plasma specimen Narrative Performed At [facility] add by pathologist reviewing [facility] DEPARTMENT OF PATHOLOGY AND GENOMIC electrophoresis. MEDICINE Performing Organization Address City/[facility]/Zipcode Phone Number [facility] DEPARTMENT OF PATHOLOGY AND [address] [place] [address] GENOMIC MEDICINE Immunoglobulin M (07/23/2018 10:40 PM CDT) IgM <25 (L) 33 - 255 mg/dL [facility] DEPARTMENT OF PATHOLOGY AND GENOMIC MEDICINE Specimen Plasma specimen Performing Organization Address City/[facility]/Zipcode Phone Number [facility] DEPARTMENT OF PATHOLOGY AND [address] [place], [place] [phone] GENOMIC MEDICINE Immunoglobulin G (07/23/2018 10:40 PM CDT) IgG 704 700 - 1,600 mg/dL [facility] DEPARTMENT OF PATHOLOGY AND GENOMIC MEDICINE Specimen Plasma specimen Narrative Performed At [facility] add by pathologist reviewing [facility] DEPARTMENT OF PATHOLOGY AND GENOMIC electrophoresis. MEDICINE Performing Organization Address City/State/Zipcode Phone Number [facility] DEPARTMENT OF PATHOLOGY AND [address] [place] [address] MEDICINE Folate RBC (group test) (07/23/2018 10:40 PM CDT) RBC folate 1,451 499 - 1,504 ng/mL [facility] DEPARTMENT OF PATHOLOGY AND GENOMIC MEDICINE Specimen Blood Performing Organization Address City/[facility] Phone Number [facility] DEPARTMENT OF PATHOLOGY AND [address] [place] [address] [facility] Ferritin level (07/23/2018 10:40 PM CDT) Ferritin level 1,045 (H) 13 - 150 ng/mL [facility] DEPARTMENT OF PATHOLOGY AND GENOMIC MEDICINE Specimen Plasma specimen Performing Organization Address [facility] Centerb[facility] Phone Number [facility] DEPARTMENT OF PATHOLOGY AND [address] [place] [address] [facility] Vitamin B12 level (07/23/2018 10:40 PM CDT) Vitamin B12 227 211 - 946 pg/mL [facility] DEPARTMENT OF PATHOLOGY Comment: AND [facility] Significant overlap exists between normal and deficiency states. However, most patients with deficiencies will have Serum B12 <200 pg/mL. Specimen Serum Performing Organization Address [facility] Centerbcoid Phone Number [facility] DEPARTMENT OF PATHOLOGY AND [address] [place], [place] [phone] [facility] XR Chest 1 Vw (07/23/2018 7:27 PM CDT) Narrative Performed At EXAMINATION: XR CHEST 1 VW RADIANT INDICATION: Coughpersistent COMPARISON: None IMPRESSION: No discrete airspace disease or pulmonary edema. Right hemidiaphragmatic eventration. No pleural effusion or pneumothorax. Cardiomediastinal silhouette within normal limits for portable technique. Probable aortic calcifications. Spondylosis. Severe left shoulder osteoarthritis. [facility]-[id number] Procedure Note Interface, Radiology Results Incoming - 07/23/2018 7:44 PM CDT EXAMINATION: XR CHEST 1 VW INDICATION: Cough persistent COMPARISON: None IMPRESSION: No discrete airspace disease or pulmonary edema. Right hemidiaphragmatic eventration. No pleural effusion or pneumothorax. Cardiomediastinal silhouette within normal limits for portable technique. Probable aortic calcifications. Spondylosis. Severe left shoulder osteoarthritis. [facility]-[id number] Performing Organization Address [facility]/Zipcode Phone Number [address] [address] Direct Vaughn' (DEMAR) (07/23/2018 5:21 PM CDT) [id number] Polyspecific NEG [facility] DEPARTMENT OF PATHOLOGY AND GENOMIC MEDICINE IgG Vaugnh, gel NEG [facility] DEPARTMENT OF PATHOLOGY AND GENOMIC MEDICINE Anti-complement NEG [facility] DEPARTMENT OF PATHOLOGY AND GENOMIC MEDICINE Specimen Blood Performing Organization Address City/[facility]/Zipcode Phone Number [facility] DEPARTMENT OF PATHOLOGY [address] [place] [address]. [place] [address] AND [facility] MEDICINE Blood smear consult (07/23/2018 5:19 PM CDT) Blood smear consult Footnote [facility] DEPARTMENT OF Comment: PATHOLOGY AND GENOMIC Increase in Lymphocytes and increase in smudged lymphocytes, MEDICINE Thrombocytopenia, called to Mary Morrissey12:00. History of CLL.Slide reviewed by pathologist, Dr. Higgins. Performing Organization Address City/State/Zipcode Phone Number [facility] DEPARTMENT OF PATHOLOGY [address] [place] [address]. [place] [address] AND [facility] Lipase level (07/23/2018 5:19 PM CDT) Lipase 25 13 - 60 U/L [facility] DEPARTMENT OF PATHOLOGY AND GENOMIC MEDICINE Specimen Plasma specimen Performing Organization Address [facility] Centerbcode Phone Number [facility] DEPARTMENT OF PATHOLOGY [address] [place] [address]. [place] [address] AND [facility] Amylase level (07/23/2018 5:19 PM CDT) Amylase 15 13 - 73 U/L [facility] DEPARTMENT OF PATHOLOGY AND GENOMIC MEDICINE Specimen Plasma specimen Performing Organization Address [facility] Centerbcode Phone Number [facility] DEPARTMENT OF PATHOLOGY [address] [place] [address]. [place] [address] AND [facility] ECG 12 lead (07/23/2018 5:09 PM CDT) Ventricular rate 76 [facility] Atrial rate 76 [facility] AK interval 156 [facility] QRSD interval 82 [facility] QT interval 366 [facility] QTC interval 411 [facility] P axis 1 2 [facility] QRS axis 1 32 [facility] T wave axis 20 [facility] EKG impression Normal sinus rhythm-Cannot rule out Anterior [facility] MUSE infarct , age undetermined-Abnormal ECG-No previous ECGs available- Performing Organization Address City/State/Zipcode Phone Number [facility] MUSE [address] [place] [address] after 08/28/2017 Insurance Payer Benefit Plan / Group Subscriber ID Type Phone Address [facility]ductorN[facility] M[facility] ADV xxxxxxxx O Advance Directives Patient has advance care planning documents on file. For more information, please contact:Manan Minor[address] [place] [address]
[2018-08-29 12:24] LABS: Urine Blood NEGATIVE (NEG); Urine Glucose NEGATIVE (NEG); Urine Protein NEGATIVE (NEG); Urine Specific Gravity 1.015 (1.005-1.030)
[2018-08-29] MEDS ORDERED: NA CHLORIDE 0.9% 1,000 ML ONE (12:30)
--- NOTE | 2018-08-29 12:37 | EKG ---
Test Date: 2018-08-29 Test Time: 11:43:24 [employer] Manager: ALEXEY MEASUREMENT RESULTS: Intervals: Rate: 70 WV: 148 QRSD: 90 QT: 378 QTc: 408 [place]: P: 12 WV: 148 QRS: 49 T: 36 INTERPRETIVE STATEMENTS: Normal sinus rhythm Normal ECG Compared to ECG 08/01/2018 17:45:40 minimal criteria for inferior infarct are no longer present Electronically Signed On 08-29-18 12:36:57 SIGN DESIGNER by Stevan Olivia
[2018-08-29 12:45] LABS: Absolute Lymphocytes (CBC) 6.6 K/uL (0.7-4.9); Absolute Monocytes 0.1 K/uL (0.1-1.3); Eosinophils % 0.2 % (0-4.4); Lymphocytes % 98.6 % (15.3-44.8); MCH 31.9 pg (27.0-35.0); MPV 9.7 fL (7.6-11.3); Monocytes % 0.8 % (3.3-12.3)
[2018-08-29 12:47] LABS: Protime INR 1.01
[2018-08-29 13:16] LABS: Blood Morphology Comment NOT SEEN (NOT SEEN); Platelet Estimate DECR; Urine White Blood Cell Casts OK
[2018-08-29 13:46] LABS: ALT/SGPT 18 U/L (12-78); AST/SGOT 11 U/L (15-37); Albumin 3.2 g/dL (3.4-5.0); Alkaline Phosphatase 83 U/L (45-117); BUN Blood Urea Nitrogen 12 mg/dL (7-18); Bicarbonate 28 mmol/L (21-32); Bilirubin Direct < 0.1 mg/dL (0-0.2); Bilirubin Total 0.3 mg/dL (0.2-1.0); Glucose Level 96 mg/dL (74-106); Lipase 96 U/L (73-393); Magnesium 2.2 mg/dL (1.8-2.4); NT PRO-BNP 230 pg/mL (<125); Potassium 4.1 mmol/L (3.5-5.1); Protein, Total 6.7 g/dL (6.4-8.2); Sodium Level 141 mmol/L (136-145); Troponin (Emerg Dept Use Only) < 0.02 ng/mL (0.0-0.045)
--- NOTE | 2018-08-29 14:10 | EDPHYS ---
Physician Documentation [facility] Name: Lisy Betts Age: 68 yrs Sex: Female : 1950 Arrival Date: 08/29/2018 Time: 11:22 Bed 15 Private MD: Edith Miller ED Physician Javed Osborne HPI: 08/29 12:19 This 68 yrs old Female presents to ER via Ambulatory with complaints of nathaniel Palpitations. 12:19 The patient presents with a history of irregular heart beat. nathaniel 14:02 Context: The symptoms occur at rest. Onset: The symptoms/episode began/occurred 4 nathaniel day(s) ago. Modifying factors: The symptoms are aggravated by nothing. The symptoms are alleviated by nothing. Associated signs and symptoms: The patient has no apparent associated signs or symptoms. Severity of symptoms: At their worst the symptoms were mild in the emergency department the symptoms are unchanged. The patient has experienced similar episodes in the past, several times. 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 - Social history:: Smoking status: Patient/guardian denies using tobacco. - Ebola Screening: : Patient denies travel to an Ebola-affected area in the 21 days before illness onset. - Family history:: not pertinent. ROS: 14:02 Constitutional: Negative for fever, chills, and weight loss, Eyes: Negative for injury, nathaniel pain, redness, and discharge, ENT: Negative for injury, pain, and discharge, Neck: Negative for injury, pain, and swelling, Abdomen/GI: Negative for abdominal pain, nausea, vomiting, diarrhea, and constipation, Back: Negative for injury and pain, : Negative for injury, bleeding, discharge, and swelling, MS/Extremity: Negative for injury and deformity, Skin: Negative for injury, rash, and discoloration, Neuro: Negative for headache, weakness, numbness, tingling, and seizure, Psych: Negative for depression, anxiety, suicide ideation, homicidal ideation, and hallucinations, Allergy/Immunology: Negative for hives, rash, and allergies, Endocrine: Negative for neck swelling, polydipsia, polyuria, polyphagia, and marked weight changes, Hematologic/Lymphatic: Negative for swollen nodes, abnormal bleeding, and unusual bruising. 14:02 Cardiovascular: Positive for palpitations. 14:02 Respiratory: Positive for shortness of breath, at rest. Exam: 14:02 Constitutional: This is a well developed, well nourished patient who is awake, alert, nathaniel and in no acute distress. Head/Face: Normocephalic, atraumatic. Eyes: Pupils equal round and reactive to light, extra-ocular motions intact. Lids and lashes normal. Conjunctiva and sclera are non-icteric and not injected. Cornea within normal limits. Periorbital areas with no swelling, redness, or edema. ENT: Nares patent. No nasal discharge, no septal abnormalities noted. Tympanic membranes are normal and external auditory canals are clear. Oropharynx with no redness, swelling, or masses, exudates, or evidence of obstruction, uvula midline. Mucous membranes moist. Neck: Trachea midline, no thyromegaly or masses palpated, and no cervical lymphadenopathy. Supple, full range of motion without nuchal rigidity, or vertebral point tenderness. No Meningismus. Chest/axilla: Normal chest wall appearance and motion. Nontender with no deformity. No lesions are appreciated. Cardiovascular: Regular rate and rhythm with a normal S1 and S2. No gallops, murmurs, or rubs. Normal PMI, no JVD. No pulse deficits. Respiratory: Lungs have equal breath sounds bilaterally, clear to auscultation and percussion. No rales, rhonchi or wheezes noted. No increased work of breathing, no retractions or nasal flaring. Back: No spinal tenderness. No costovertebral tenderness. Full range of motion. Female : Normal external genitalia. Skin: Warm, dry with normal turgor. Normal color with no rashes, no lesions, and no evidence of cellulitis. MS/ Extremity: Pulses equal, no cyanosis. Neurovascular intact. Full, normal range of motion. Neuro: Awake and alert, GCS 15, oriented to person, place, time, and situation. Cranial nerves II-XII grossly intact. Motor strength 5/5 in all extremities. Sensory grossly intact. Cerebellar exam normal. Normal gait. Psych: Awake, alert, with orientation to person, place and time. Behavior, mood, and affect are within normal limits. 14:02 Abdomen/GI: Inspection: abdomen appears normal, Bowel sounds: normal, Palpation: nontender, Liver: no appreciated palpable abnormalities, Hernia: not appreciated. Vital Signs: 11:32 BP 129 / 72; Pulse 70; Resp 18; Temp 98.2; Pulse Ox 99% on R/A; Weight 87.09 kg (R); aj1 Height 5 ft. 3 in. (160.02 cm); Pain 1/10; 13:50 BP 102 / 58; Pulse 59; Resp 18; Temp 97.2; Pulse Ox 98% on R/A; la1 16:05 BP 116 / 63; Pulse 61; Resp 16; Temp 97.2; Pulse Ox 98% on R/A; la1 11:32 Body Mass Index 34.01 (87.09 kg, 160.02 cm) 1 MDM: 12:25 Patient medically screened. [facility] 14:19 Data reviewed: vital signs, nurses notes, lab test result(s), EKG, radiologic studies, [facility] CT scan, plain films, ultrasound. 08/29 11:56 Order name: Urine Dipstick--Ancillary (enter results) 08/29 12:18 Order name: Basic Metabolic Panel; Complete Time: 14:57 [facility] 08/29 12:18 Order name: CBC with Diff; Complete Time: 13:55 [facility] 08/29 12:18 Order name: LFT's; Complete Time: 14:57 [facility] 08/29 12:18 Order name: Magnesium; Complete Time: 14:57 [facility] 08/29 12:18 Order name: NT PRO-BNP; Complete Time: 14:57 [facility] 08/29 12:18 Order name: PT-INR; Complete Time: 13:11 [facility] 08/29 12:18 Order name: Troponin (emerg Dept Use Only); Complete Time: 14:57 [facility] 08/29 12:18 Order name: Urine Culture [facility] 08/29 12:18 Order name: TSH; Complete Time: 14:57 [facility] 08/29 12:18 Order name: Lipase; Complete Time: 14:57 [facility] 08/29 13:06 Order name: CBC Smear Scan; Complete Time: 13:55 [facility] 08/29 13:12 Order name: Type And Screen [facility] 08/29 14:06 Order name: T4 Free; Complete Time: 14:57 [facility] 08/29 12:13 Order name: EKG; Complete Time: 12:14 sn 08/29 12:13 Order name: EKG - Nurse/Tech; Complete Time: 12:16 sn 08/29 12:18 Order name: XRAY Chest (1 view); Complete Time: 14:57 [facility] 08/29 12:18 Order name: Cardiac monitoring; Complete Time: 12:20 [facility] 08/29 14:02 Order name: CT Chest For PE Angio; Complete Time: 14:57 [facility] 08/29 14:02 Order name: US Extremity Venous W Compression Danish; Complete Time: 14:57 [facility] 08/29 14:19 Order name: CONS Physician Consult [facility] 08/29 14:19 Order name: CONS Physician Consult [facility] 08/29 15:00 Order name: Blood Culture Adult (2) [facility] 08/29 15:00 Order name: Flu [facility] 08/29 15:00 Order name: Echo w/ Doppler [facility] 08/29 15:36 Order name: Diet Regular; Complete Time: 15:36 08/29 16:11 Order name: Influenza Screen (A [facility] 08/29 12:18 Order name: IV Saline Lock; Complete Time: 12:20 [facility] 08/29 12:18 Order name: Labs collected and sent; Complete Time: 12:20 [facility] 08/29 12:18 Order name: O2 Per Protocol; Complete Time: 12:20 [facility] 08/29 12:18 Order name: O2 Sat Monitoring; Complete Time: 12:20 [facility] 08/29 12:18 Order name: Urine Dipstick-Ancillary (obtain specimen); Complete Time: 12:45 [facility] Administered Medications: 12:43 Drug: NS 0.9% 1000 ml Route: IV; Rate: 125 ml/hr; Site: right antecubital; la1 16:18 Follow up: IV Status: Infusion continued upon admission la1 15:49 Drug: ProTONIX 40 mg Route: IVP; Site: right forearm; la1 16:18 Follow up: Response: No adverse reaction la1 15:49 Drug: levofloxacin 500 mg Volume: 100 ml; Route: IVPB; Infused Over: 60 mins; Site: la1 right antecubital; 16:17 Follow up: IV Status: Completed infusion la1 Disposition: 08/29/18 14:10 Hospitalization ordered by Sandy Wick for Observation. Preliminary diagnosis are Palpitations, Chest pain, unspecified, Thrombocytopenia, unspecified - cll, Anemia, unspecified - cll. - Bed requested for Telemetry/MedSurg (observation). - Status is Observation. sv - Condition is Fair. - Problem is new. - Symptoms have improved. UTI on Admission? No Signatures: Dispatcher [employer] EDMS Jennifer Farfan RN RN ajSanta Mendoza RN RN Debra Conti RN RN dw Anderson, Corey, MD MD cha Therrien, Shelly, MARKETING LIAISON-C MARKETING LIAISON-Csnw Hernandez Mcdaniel RN RN la1 Corrections: (The following items were deleted from the chart) 15:38 14:10 Hospitalization Ordered by Sandy Wick MD for Observation. Preliminary diagnosis dw is Palpitations; Chest pain, unspecified; Thrombocytopenia, unspecified - cll; Anemia, unspecified - cll. Bed requested for Telemetry/MedSurg (observation). Status is Observation. Condition is Fair. Problem is new. Symptoms have improved. UTI on Admission? No. nathaniel 16:41 15:38 08/29/2018 14:10 Hospitalization Ordered by Sandy Wick MD for Observation. sv Preliminary diagnosis is Palpitations; Chest pain, unspecified; Thrombocytopenia, unspecified - cll; Anemia, unspecified - cll. Bed requested for Telemetry/MedSurg (observation). Status is Observation. Condition is Fair. Problem is new. Symptoms have improved. UTI on Admission? No. dw
--- NOTE | 2018-08-29 14:10 | ER ---
Nurse's Notes [facility] Name: Lisy Betts Age: 68 yrs Sex: Female : 1950 Arrival Date: 08/29/2018 Time: 11:22 Bed 15 Private MD: Edith Miller Diagnosis: Palpitations;Chest pain, unspecified;Thrombocytopenia, unspecified-cll;Anemia, unspecified-cll Presentation: 08/29 11:26 Presenting complaint: Patient states: "I know that my platelets are low because I had aj1 lab tests done this morning, but I've been having a lot of chest pains and palpitations" Reports that she has been having chest pain to left side of chest that is intermittent and does not radiate and palpitations for the past 4 days. States that she has CLL, so she frequently needs platelets. Reports SOB, dizziness. Patient reports numbness in right arm and pain in right shoulder. Transition of care: patient was not received from another setting of care. Onset of symptoms was August 25, 2018. Risk Assessment: Do you want to hurt yourself or someone else? Patient reports no desire to harm self or others. Initial Sepsis Screen: Does the patient meet any 2 criteria? No. Patient's initial sepsis screen is negative. Does the patient have a suspected source of infection? No. Patient's initial sepsis screen is negative. Care prior to arrival: None. 11:26 Method Of Arrival: Ambulatory aj1 11:26 Acuity: ARNOLD 3 aj1 Triage Assessment: 11:32 General: Appears in no apparent distress. comfortable, Behavior is calm, cooperative, aj1 appropriate for age. Pain: Complains of pain in anterior aspect of left upper chest and left breast Pain does not radiate. Pain currently is 1 out of 10 on a pain scale. Neuro: Level of Consciousness is awake, alert, obeys commands. Cardiovascular: Reports chest pain, nausea, palpitations, shortness of breath, Patient's skin is warm and dry. Respiratory: Airway is patent Respiratory effort is even, unlabored, Respiratory pattern is regular, symmetrical. 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 - Social history:: Smoking status: Patient/guardian denies using tobacco. - Ebola Screening: : Patient denies travel to an Ebola-affected area in the 21 days before illness onset. - Family history:: not pertinent. Screenin:44 Abuse screen: Denies threats or abuse. Nutritional screening: No deficits noted. la1 Tuberculosis screening: No symptoms or risk factors identified. Fall Risk None identified. Assessment: 12:44 General: Appears in no apparent distress. Behavior is calm, cooperative. Pain: Denies la1 pain. Neuro: Level of Consciousness is awake, alert, obeys commands, Oriented to person, place, time, situation. Cardiovascular: Heart tones S1 S2 present Capillary refill < 3 seconds Patient's skin is warm and dry. Chest pain is denied. Respiratory: Airway is patent Respiratory effort is even, unlabored, Respiratory pattern is regular, symmetrical, Breath sounds are clear bilaterally. GI: No signs and/or symptoms were reported involving the gastrointestinal system. : No signs and/or symptoms were reported regarding the genitourinary system. 12:56 Reassessment: Dr. Osborne notified of critical plt level of 10. ss 14:16 Reassessment: pt to CT and ultrasound at this time. la1 16:05 Reassessment: Patient appears in no apparent distress at this time. No changes from la1 previously documented assessment. Patient and/or family updated on plan of care and expected duration. Pain level reassessed. Patient is alert, oriented x 3, equal unlabored respirations, skin warm/dry/pink. Vital Signs: 11:32 BP 129 / 72; Pulse 70; Resp 18; Temp 98.2; Pulse Ox 99% on R/A; Weight 87.09 kg (R); aj1 Height 5 ft. 3 in. (160.02 cm); Pain 1/10; 13:50 BP 102 / 58; Pulse 59; Resp 18; Temp 97.2; Pulse Ox 98% on R/A; la1 16:05 BP 116 / 63; Pulse 61; Resp 16; Temp 97.2; Pulse Ox 98% on R/A; la1 11:32 Body Mass Index 34.01 (87.09 kg, 160.02 cm) aj1 ED Course: 11:22 Patient arrived in ED. sb2 11:22 Edith Miller is Private Physician. sb2 11:29 Triage completed. aj1 11:32 Arm band placed on Patient placed in an exam room. aj1 11:55 EKG done, by agricultural research technologist. reviewed by Javed Osborne MD. sm3 12:13 Hernandez Mcdaniel, RN is Primary Nurse. la1 12:15 Initial lab(s) drawn, by me, sent to lab. Inserted saline lock: 20 gauge in right jb1 antecubital area, using aseptic technique. Blood collected. 12:17 Javed Osborne MD is Attending Physician. nathaniel 12:45 Call light in reach. Side rails up X 1. la1 14:08 XRAY Chest (1 view) In Process Unspecified. EDMS 14:08 Sandy Wick MD is Hospitalizing Provider. nathaniel 14:31 CT Chest For PE Angio In Process Unspecified. EDMS 14:43 US Extremity Venous W Compression Danish In Process Unspecified. EDMS Administered Medications: 12:43 Drug: NS 0.9% 1000 ml Route: IV; Rate: 125 ml/hr; Site: right antecubital; la1 16:18 Follow up: IV Status: Infusion continued upon admission la1 15:49 Drug: ProTONIX 40 mg Route: IVP; Site: right forearm; la1 16:18 Follow up: Response: No adverse reaction la1 15:49 Drug: levofloxacin 500 mg Volume: 100 ml; Route: IVPB; Infused Over: 60 mins; Site: la1 right antecubital; 16:17 Follow up: IV Status: Completed infusion la1 Outcome: 14:10 Decision to Hospitalize by Provider. nathaniel 16:41 Patient left the ED. sv Signatures: Dispatcher [employer] EDMS Harsha Burris jb1 Jennifer Farfan RN RN aj1 Santa Ugarte RN RN sv Anderson, Corey, MD MD cha Smirch, Shelby, RN RN Hernandez Mcdaniel RN RN la1 Mile Dumont sb2 Theodore, Dona sm3
--- NOTE | 2018-08-29 14:25 | RAD REPORT ---
EXAM DESCRIPTION: RAD - Chest Single View - 08/29/2018 2:08 pm CLINICAL HISTORY: COUGH Chest pain. COMPARISON: Chest Pa And Lat (2 Views) dated 07/12/2018; Chest Pa And Lat (2 Views) dated 07/11/2018; Chest Single View dated 07/08/2018; Chest Single View dated 07/01/2018 FINDINGS: Portable technique limits examination quality. The lungs are grossly clear. The heart is normal in size. No displaced fractures. IMPRESSION: No acute intrathoracic process suspected.
--- NOTE | 2018-08-29 14:41 | RAD REPORT ---
EXAM DESCRIPTION: CT - Chest For Pe Angio - 08/29/2018 2:31 pm CLINICAL HISTORY: Chest pain. CHEST PAIN COMPARISON: Thorax Wo Con dated 07/08/2018 TECHNIQUE: CT angiogram of the pulmonary arteries was performed with MIP. All CT scans are performed using dose optimization technique as appropriate and may include automated exposure control or mA/KV adjustment according to patient size. FINDINGS: No evidence of pulmonary thromboembolism. No acute aortic finding demonstrated. The heart is mildly prominent size. Mild ground-glass opacity is present in both lungs with subtle linear opacities in both lung bases in the superior segment right lower lobe probably atelectasis. No significant pericardial or pleural fluid. Enlarged lymph nodes are seen in both axillary regions, mildly progressive since 07/08/2018. No concerning bony finding. IMPRESSION: No evidence of pulmonary thromboembolism. Mild interstitial prominence is present throughout both lungs with ground-glass opacity, suggesting p ulmonary edema or interstitial pneumonia. Bilateral axillary lymphadenopathy is present. The lymph nodes appear mildly enlarged compared to the most recent comparative study.
--- NOTE | 2018-08-29 14:51 | RAD REPORT ---
EXAM DESCRIPTION: US - Extrem Venous W Compress Danish - 08/29/2018 2:43 pm CLINICAL HISTORY: SWELLING Bilateral leg edema and swelling. COMPARISON: Extrem Venous W Compress Danish dated 01/22/2018 TECHNIQUE: Real-time sonographic interrogation of the left and right lower extremity deep venous sys tems was performed. FINDINGS: Normal compressibility, flow augmentation, phasic flow and spontaneous flow is identified in both the left and right lower extremity deep venous systems. IMPRESSION: No sonographic evidence of left or right lower extremity deep venous thrombosis.
[2018-08-29] MEDS ORDERED: PANTOPRAZOLE 40 MG INJ ONE (15:39)
[2018-08-29] MEDS ORDERED: Levofloxacin500mg IV 500 MG/100 ML BAG IV ONE (15:39)
--- NOTE | 2018-08-29 17:13 | P.HP ---
Certification for Inpatient Patient admitted to: Observation With expected LOS: <2 Midnights Practitioner: I am a practitioner with admitting privileges, knowledge of patient current condition, hospital course, and medical plan of care. Services: Services provided to patient in accordance with Admission requirements found in Title 42 Section 412.3 of the Code of Federal Regulations Patient History Date of Service: 08/29/18 Reason for admission: low Platelet count History of Present Illness: This is a 68-year-old female with history of CLL, history of chronic transfusions due to anemia and low platelet counts admitted for low platelet count. Per patient, she woke up this morning noted on her my patient portal that her platelets were low from the blood work that her PCP paris and she figured should come into the ER to get transfusion. She is complaining of mild fever yesterday, increasing dizziness as well as increasing bleeding from the gums and increased bruises on her body. She is also complaining of some nausea intermittently. At the time of my exam, she was alert oriented x3, not in any acute distress and no evidence of any active bleeding in the gums, nose or anywhere else. Allergies ceftriaxone [From Rocephin] Allergy (Verified 08/01/18 23:28) Hives Penicillins Allergy (Verified 08/01/18 23:28) Hives prednisone Adverse Reaction (Verified 08/01/18 23:28) Shortness of breath Home Medications: traMADol HCL [Ultram*] 50 mg PO Q6H PRN 06/27/18 Docusate [Colace Cap*] 100 mg PO DAILY #30 cap 07/13/18 Pantoprazole [Protonix Tab*] 40 mg PO BIDAC #60 tab 07/13/18 Cholecalciferol (Vitamin D3) [Vitamin D 1000 Iu Tab*] 1 pill PO DAILY 08/29/18 Lactobacillus Acidophilus [Probiotic] 1 pill PO DAILY 08/29/18 Ondansetron HCl [Zofran] 4 mg PO Q6H PRN 08/29/18 - Past Medical/Surgical History Diabetic: No -: Chronic Lymphocytic Leukemia -: 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 -: PE -: GERD -: 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 -: cyst removed from left breast -: left ankle surgery -: Hysterectomy 2018 -: Abdominal hernia repair with mesh placement - Family History Mother -: Heart disease, Other (see notes) Notes: [place], [place] Father -: Cancer Notes: Pancreatic [place] - Social History Alcohol use: No CD- Drugs: No Caffeine use: Yes Review of Systems General: Fever, As per HPI ENT: Other (Gum bleeding), As per HPI Respiratory: Unremarkable Cardiovascular: Unremarkable Gastrointestinal: Unremarkable Genitourinary: Unremarkable Musculoskeletal: Unremarkable Integumentary: Unremarkable Neurological: As per HPI (Dizziness) Physical Examination - Physical Exam General: Alert, In no apparent distress, Oriented x3 HEENT: Atraumatic, PERRLA, Mucous membr. moist/pink, EOMI, Sclerae nonicteric Neck: Supple, 2+ carotid pulse no bruit, No LAD, Without JVD or thyroid abnormality Respiratory: Clear to auscultation bilaterally, Normal air movement Cardiovascular: Regular rate/rhythm, Normal S1 S2 Gastrointestinal: Normal bowel sounds, No tenderness Musculoskeletal: No tenderness Neurological: Normal gait, Normal speech, Normal strength at 5/5 x4 extr, Normal tone, Normal affect - Studies Laboratory Data (last 24 hrs) 08/29/18 12:30: PT 11.9, INR 1.01 08/29/18 12:30: WBC 6.7, Hgb 8.0 L, Hct 22.0 L, Plt Count 10 L* 08/29/18 12:30: Sodium 141, Potassium 4.1, BUN 12, Creatinine 0.70, Glucose 96, Magnesium 2.2, Total Bilirubin 0.3, AST 11 L, ALT 18, Alkaline Phosphatase 83, Lipase 96 Assessment and Plan - Plan This is a 68-year-old female with: Thrombocytopenia: Patient with a platelet of 10, reported increased gum bleeding. Though no active bleeding noted on exam at this time. We will monitor patient overnight, recheck a.m. labs and transfuse if platelets less than 10 or any evidence of active bleeding. Anemia likely of chronic disease Hemoglobin stable at 8 at this time. Will recheck in the morning, transfuse if less than 7. Possible pneumonia on chest CT. Continue IV Levaquin. Will switch to oral Levaquin tomorrow, will have patient completed course of Levaquin for 7 days as patient already has compromised immune system secondary to her CLL. History of CLL Dr. Balbuena, oncology consulted. Spoke to Dr. Balbuena on the phone, recommendations appreciated. Recommends platelet transfusion if platelets drop below 10, people come symptomatically any active bleeding. Recommends transfusing PRBCs hemoglobin drops less than 7, or activity noted. DVT prophylaxis: Hold this time GI prophylaxis: Not needed Diet: Regular Disposition: Admit to floor with tele, observed overnight for any active bleeding. Recheck labs in the morning. If stable, can likely be discharged home. - Advance Directives Does patient have a Living Will: No Does patient have a Durable POA for Healthcare: No Physician Review: Patient Assessed, Agree with Above Assessment and Plan Time Spent Managing Pts Care (In Minutes): 55
[2018-08-29] MEDS ORDERED: TRAMADOL HCL 50 MG TAB PO ONE (18:06)
[2018-08-29 19:01] VITALS: BMI 34.0
[2018-08-29] MEDS: ACETAMINOPHEN 500 MG TAB PO PRN ×2 (20:00→23:46)
[2018-08-29] MEDS: NA CHLORIDE 0.9% 1,000 ML IV SCH (22:30)
[2018-08-29] MEDS: ONDANSETRON 4 MG/2 ML VIAL IV PRN (23:47)
[2018-08-30 07:09] LABS: Absolute Lymphocytes (CBC) 2.6 K/uL (0.7-4.9); Eosinophils % 0.8 % (0-4.4); Hematocrit 35.2 % (36.0-45.0); Lymphocytes % 96.6 % (15.3-44.8); MCH 27.9 pg (27.0-35.0); MCV 88.3 fL (80-100); MPV 10.3 fL (7.6-11.3); Monocytes % 0.7 % (3.3-12.3); RBC Red Blood Cell Count 3.99 M/uL (3.86-4.86)
[2018-08-30 07:11] LABS: Albumin 2.7 g/dL (3.4-5.0); Bilirubin Total 0.3 mg/dL (0.2-1.0); Potassium 4.4 mmol/L (3.5-5.1); Protein, Total 5.8 g/dL (6.4-8.2)
[2018-08-30] MEDS: ONDANSETRON 4 MG/2 ML VIAL IV PRN ×2 (07:20→13:09)
[2018-08-30] MEDS: ACETAMINOPHEN 500 MG TAB PO PRN ×2 (07:21→13:09)
[2018-08-30] MEDS ORDERED: PROMETHAZINE 25 MG/ML VIAL IV ONE (08:30)
[2018-08-30] MEDS: Levofloxacin500mg IV 500 MG/100 ML BAG IV SCH (09:20)
--- NOTE | 2018-08-30 09:49 | PN ---
Ms. Betts seems to have everything normal on her cardiac testing. There are several things she has no t done because I do not think we need to. She is not having angina, normal enzymes, but she has palp itations. Her telemetry indicates that it is just normal sinus rhythm, so I do not think we need to worry about arrhythmia in her. We have seen what her heart rhythm is when she has symptoms and there is no need to initiate antiarrhythmic drug therapy or investigate it further. Cardiology will sign off Ms. Betts's case. JOE/ERNIE Voice ID: [id number] Report ID: [id number]
[2018-08-30] MEDS ORDERED: DIPHENHYDRAMINE 25 MG TAB/CAP PO ONE (10:25)
[2018-08-30] MEDS ORDERED: NA CHLORIDE 0.9% 250 ML ONE (12:53)
[2018-08-30] MEDS: NA CHLORIDE 0.9% 1,000 ML IV SCH ×2 (13:10→21:54)
[2018-08-30] MEDS: NYSTATIN 500,000 UNIT/5 ML UDC PO SCH ×2 (13:12→21:54)
--- NOTE | 2018-08-30 13:40 | P.PN ---
Subjective Date of Service: 08/30/18 Chief Complaint: low Platelet count Subjective: No new changes, No C/O voiced, Improving Patient seen and examined at bedside. No family at bedside. Chart reviewed and Case discussed with nursing staff and Dr. Balbuena. Review of Systems As noted Physical Examination - Vital Signs Temperature: 100.6 F Blood Pressure: 110/52 Pulse: 84 Respirations: 18 Pulse Ox (%): 98 - Physical Exam General: Alert, In no apparent distress, Oriented x3, Other (No active bleeding noted anywhere) HEENT: Atraumatic, PERRLA, Other (No open sores noted in mouth/tongue), EOMI Neck: Supple, JVD not distended Respiratory: Clear to auscultation bilaterally, Normal air movement Cardiovascular: Regular rate/rhythm, Normal S1 S2 Gastrointestinal: Normal bowel sounds, No tenderness Musculoskeletal: No tenderness Integumentary: No rashes Neurological: Normal speech, Normal tone, Normal affect Lymphatics: No axilla or inguinal lymphadenopathy - Studies Laboratory Data (last 24 hrs) 08/29/18 12:30: Sodium 141, Potassium 4.1, BUN 12, Creatinine 0.70, Glucose 96, Magnesium 2.2, Total Bilirubin 0.3, AST 11 L, ALT 18, Alkaline Phosphatase 83, Lipase 96 Assessment And Plan - Plan This is a 68-year-old female with: Thrombocytopenia: Patient with a platelet of 6, transfuse 2 units of platelets. Though no active bleeding noted on exam at this time. Recheck labs after transfusion. Likely discharge after transfusion Anemia likely of chronic disease Hemoglobin stable at 11 at this time. Continue to monitor. Possible pneumonia on chest CT. Continue IV Levaquin. Will switch to oral Levaquin tomorrow, will have patient completed course of Levaquin for 7 days as patient already has compromised immune system secondary to her CLL. History of CLL Dr. Balbuena, oncology consulted. Spoke to Dr. Balbuena on the phone, recommendations appreciated. Recommends platelet transfusion if platelets drop below 10, people come symptomatically any active bleeding. Recommends transfusing PRBCs hemoglobin drops less than 7, or activity noted. DVT prophylaxis: Hold this time GI prophylaxis: Not needed Diet: Regular Disposition: Continue monitoring. Transfuse 2 units of platelets, likely discharge after transfusion. She will need to follow up outpatient with oncology. She states that she has appointment scheduled for the with a new oncologist in [place]. Discharge Plan: Home Plan to discharge in: 24 Hours Physician Review: Patient Assessed, Agree with Above Assessment and Plan Time Spent Managing PTS Care (In Minutes): 35
[2018-08-30] MEDS ORDERED: TRAMADOL HCL 50 MG TAB PO ONE (15:37)
[2018-08-30] MEDS ORDERED: Levofloxacin500mg IV 500 MG/100 ML BAG IV SCH (16:00)
[2018-08-30] MEDS: MORPHINE 2 MG/ML SYR IV PRN ×2 (17:51→22:51)
[2018-08-30 18:21] LABS: MPV 8.7 fL (7.6-11.3)
[2018-08-30 18:43] LABS: Platelet Estimate DECR
[2018-08-31] MEDS: ACETAMINOPHEN 500 MG TAB PO PRN ×4 (05:04→18:46)
[2018-08-31] MEDS: MORPHINE 2 MG/ML SYR IV PRN ×3 (05:30→20:38)
[2018-08-31 05:49] LABS: Albumin 2.7 g/dL (3.4-5.0); Bilirubin Total 0.3 mg/dL (0.2-1.0); Potassium 3.9 mmol/L (3.5-5.1); Protein, Total 5.6 g/dL (6.4-8.2)
[2018-08-31 06:47] LABS: Absolute Lymphocytes (CBC) 2.7 K/uL (0.7-4.9); Basophils % 0.1 % (0-1.3); Eosinophils % 0.3 % (0-4.4); Hematocrit 17.7 % (36.0-45.0); Lymphocytes % 97.3 % (15.3-44.8); MCH 31.9 pg (27.0-35.0); MCV 88.5 fL (80-100); MPV 8.8 fL (7.6-11.3); Monocytes % 0.9 % (3.3-12.3); RBC Red Blood Cell Count 1.99 M/uL (3.86-4.86)
[2018-08-31] MEDS ORDERED: POTASSIUM CL SA 10 MEQ TAB PO ONE (07:55)
[2018-08-31] MEDS: Levofloxacin500mg IV 500 MG/100 ML BAG IV SCH (08:45)
[2018-08-31] MEDS: NYSTATIN 500,000 UNIT/5 ML UDC PO SCH ×3 (08:46→20:39)
[2018-08-31] MEDS ORDERED: NA CHLORIDE 0.9% 250 ML ONE (09:54)
[2018-08-31] MEDS ORDERED: DIPHENHYDRAMINE 25 MG TAB/CAP PO ONE (11:37)
[2018-08-31 14:54] LABS: MPV 8.9 fL (7.6-11.3)
[2018-08-31 14:57] LABS: Hematocrit 16.1 % (36.0-45.0)
[2018-08-31 14:58] LABS: Protime INR 1.19
[2018-08-31 15:22] LABS: Platelet Estimate DECR
--- NOTE | 2018-08-31 17:27 | P.PN ---
Subjective Date of Service: 08/31/18 Chief Complaint: low Platelet count Patient seen and examined at bedside. No family at bedside. Chart reviewed and Case discussed with nursing staff and Dr. Balbuena. Patient seems to be having a low-grade temperature. Also complains of abdominal pain Review of Systems As noted Physical Examination - Vital Signs Temperature: 101.0 F Blood Pressure: 130/55 Pulse: 86 Respirations: 19 Pulse Ox (%): 95 - Physical Exam General: Alert, Oriented x3, Mild distress HEENT: Atraumatic, PERRLA, EOMI Neck: Supple, JVD not distended Respiratory: Clear to auscultation bilaterally, Normal air movement Cardiovascular: Regular rate/rhythm, Normal S1 S2 Gastrointestinal: Normal bowel sounds, No tenderness, No rebound, No guarding Musculoskeletal: No tenderness Integumentary: Other (Bruising noted on left side of abdomen.) Neurological: Normal speech, Normal tone, Normal affect - Studies Microbiology Data (last 24 hrs): 08/29/18 11:53 Clean Catch Urine [place] Count - Final >100,000 CFU/ML. 08/29/18 11:53 Clean Catch Urine - Final Assessment And Plan - Plan This is a 68-year-old female with: Thrombocytopenia: She is status post 2 units of platelets. Will continue to monitor platelet count with a.m. labs. Anemia likely of chronic disease Hemoglobin dropped to 6 this morning. 2 units of PRBCs were ordered. Patient developed some fever during the transfusion. No other symptoms noted other than abdominal pain. Transfusions stomped, sent back to the lab. Hemoglobin/ hematocrit, haptoglobin and bilirubin, coagulation studies sent. Blood cultures also sent along with a urine culture. Continues to receive IV fluids this time at maintenance rate. Will continue to monitor. May need to transfuse again tomorrow. Unsure if this is hemolytic transfusion reaction versus just a febrile reaction ( more likely as patient with no other symptoms at this time) Possible pneumonia on chest CT. Continue IV Levaquin. Abdominal pain Abdominal CT ordered, pending History of CLL Dr. Balbuena, oncology consulted. Spoke to Dr. Balbuena on the phone, recommendations appreciated. Recommends platelet transfusion if platelets drop below 10, people come symptomatically any active bleeding. Recommends transfusing PRBCs hemoglobin drops less than 7, or activity noted. DVT prophylaxis: Hold this time GI prophylaxis: Not needed Diet: Regular Disposition: Continue monitoring. She will need to follow up outpatient with oncology. She states that she has appointment scheduled for the with a new oncologist in [place]. Physician Review: Patient Assessed, Agree with Above Assessment and Plan Time Spent Managing PTS Care (In Minutes): 55
--- NOTE | 2018-08-31 17:28 | RAD REPORT ---
EXAM DESCRIPTION: CT - Abdomen Wo Contrast - 08/31/2018 2:51 pm CLINICAL HISTORY: Abdominal pain, nausea, history of CLL COMPARISON: CT imaging July 08, 2018 TECHNIQUE: Axial [address] imaging of the abdomen was performed. No IV contrast was adm inistered. Oral contrast was administered. All CT scans are performed using dose optimization technique as appropriate and may include automated exposure control or mA/KV adjustment according to patient size. FINDINGS: Minimal right base atelectasis. No pericardial thickening or effusion. Liver size is stable with no focal liver lesion identified on noncontrast imaging. No acute pancreati c parenchymal process. No focal splenic lesions seen. Spleen measures slightly larger than June. Craniocaudal dimension is 15 cm on the current examination compared to 12.5 cm on the prior examinat ion. Gallbladder and biliary tree are without suspicious finding. No hydronephrosis or suspicious renal mass. Isodense masses and pyelonephritis are not excluded on a non IV contrast study. No adrenal abnormality. No dilated bowel loops or bowel wall thickening. No free air, free fluid or inflammatory stranding. N o omental thickening. Prior supraumbilical hernia repair changes noted. Multiple lymph nodes are pres ent near the gastrohepatic ligament and superior peripancreatic tissues. Largest lymph node (image 24 /59) in this region measures 3.1 x 1.8 cm. Peripancreatic lymph nodes have increased as well. There i s central mesenteric congestion and lymphadenopathy present. Size and number of lymph nodes have incr eased. Periaortic/pericaval lymph nodes have increased. Image 39/59 shows a left periaortic lymph nod e 2.7 x 1.7 cm in size. The lymph node was previously 1.7 x 1.4 cm in size. More inferiorly along the left aorta (image 46/59) a 2.1 x 1.8 centimeter lymph node is seen, previously 1.2 x 1.2 cm. Disc and bone degenerative changes are present. Exam sensitivity is decreased when no IV contrast is administered. IMPRESSION: Abdominal lymphadenopathy has shown an increase in both size and number of lymph nodes s dipti the July 08 imaging. Representational lymph node measurements detailed in the body of the r eport. Spleen measures 15 cm in craniocaudal dimension, increased from 12.5 cm in June.
[2018-08-31] MEDS: NA CHLORIDE 0.9% 1,000 ML IV SCH (17:39)
[2018-08-31 19:04] LABS: Urine Appearance CLEAR; Urine Bilirubin NEGATIVE (NEG); Urine Blood NEGATIVE (NEG); Urine Color YELLOW; Urine Glucose NEGATIVE (NEG); Urine Protein NEGATIVE (NEG); Urine Specific Gravity <=1.005 (1.005-1.030); Urine Urobilinogen 0.2 mg/dL (0.2-1.0)
[2018-08-31 20:00] LABS: Urine Bacteria 20-50 /HPF (<20); Urine RBC <5 /HPF (NONE SEEN)
[2018-08-31 20:01] LABS: Urine Culture Reflex Order REFLEXED
[2018-08-31] MEDS: ONDANSETRON 4 MG/2 ML VIAL IV PRN (20:39)
[2018-09-01] MEDS: ACETAMINOPHEN 500 MG TAB PO PRN ×4 (01:52→16:33)
[2018-09-01] MEDS: NA CHLORIDE 0.9% 1,000 ML IV SCH ×2 (03:20→07:35)
[2018-09-01] MEDS: ONDANSETRON 4 MG/2 ML VIAL IV PRN ×2 (04:25→16:09)
[2018-09-01 05:41] LABS: Absolute Lymphocytes (CBC) 2.2 K/uL (0.7-4.9); Basophils % 0.1 % (0-1.3); Eosinophils % 0.6 % (0-4.4); Hematocrit 18.8 % (36.0-45.0); Lymphocytes % 96.7 % (15.3-44.8); MCH 31.5 pg (27.0-35.0); MCV 88.2 fL (80-100); MPV 9.3 fL (7.6-11.3); Monocytes % 0.9 % (3.3-12.3); RBC Red Blood Cell Count 2.14 M/uL (3.86-4.86)
[2018-09-01 06:00] LABS: Albumin 3.1 g/dL (3.4-5.0); Bilirubin Total 0.3 mg/dL (0.2-1.0); Potassium 4.3 mmol/L (3.5-5.1); Protein, Total 6.7 g/dL (6.4-8.2)
[2018-09-01 07:22] LABS: Blood Morphology Comment NOT SEEN (NOT SEEN); Platelet Estimate DECR; Urine White Blood Cell Casts OK
[2018-09-01] MEDS ORDERED: NA CHLORIDE 0.9% 100 ML ONE (08:00)
[2018-09-01] MEDS: Levofloxacin500mg IV 500 MG/100 ML BAG IV SCH (08:27)
[2018-09-01] MEDS ORDERED: NA CHLORIDE 0.9% 100 ML IV ONE ×3 (09:01→20:39)
[2018-09-01] MEDS: NYSTATIN 500,000 UNIT/5 ML UDC PO SCH ×3 (09:31→21:21)
[2018-09-01 11:47] LABS: MPV 7.8 fL (7.6-11.3)
[2018-09-01 12:26] LABS: Hematocrit 15.6 % (36.0-45.0)
[2018-09-01 12:27] LABS: Platelet Estimate DECR
[2018-09-01] MEDS: DOCUSATE NA 100 MG CAP PO PRN (12:45)
[2018-09-01] MEDS ORDERED: FLEET ENEMA ADULT PR ONE (13:19)
[2018-09-01] MEDS: PSYLLIUM 1 PKT PO SCH (13:38)
--- NOTE | 2018-09-01 22:35 | P.PN ---
Subjective Date of Service: 09/02/18 Chief Complaint: low Platelet count Patient seen and examined at bedside. No family at bedside. Chart reviewed and Case discussed with nursing staff and Dr. Balbuena. Patient seems to be having a low-grade temperature. Also complains of abdominal pain. Physical Examination - Vital Signs Temperature: 99.1 F Blood Pressure: 122/60 Pulse: 77 Respirations: 20 Pulse Ox (%): 96 Assessment And Plan - Plan This is a 68-year-old female with: Thrombocytopenia: She is status post 2 units of platelets. Will continue to monitor platelet count with a.m. labs. Anemia likely of chronic disease Hemoglobin dropped to 6 this morning. 2 units of PRBCs were ordered. Patient developed some fever during the transfusion. No other symptoms noted other than abdominal pain. Transfusions stomped, sent back to the lab. Hemoglobin/ hematocrit, haptoglobin and bilirubin, coagulation studies sent. Blood cultures also sent along with a urine culture. Continues to receive IV fluids this time at maintenance rate. Will continue to monitor. May need to transfuse again tomorrow. Unsure if this is hemolytic transfusion reaction versus just a febrile reaction ( more likely as patient with no other symptoms at this time) Possible pneumonia on chest CT. Continue IV Levaquin. Abdominal pain Abdominal CT ordered, pending History of CLL Dr. Balbuena, oncology consulted. Spoke to Dr. Balbuena on the phone, recommendations appreciated. Recommends platelet transfusion if platelets drop below 10, people come symptomatically any active bleeding. Recommends transfusing PRBCs hemoglobin drops less than 7, or activity noted. DVT prophylaxis: Hold this time GI prophylaxis: Not needed Diet: Regular Disposition: Continue monitoring. She will need to follow up outpatient with oncology. She states that she has appointment scheduled for the with a new oncologist in [place]. Physician Review: Patient Assessed, Agree with Above Assessment and Plan
[2018-09-02 01:21] LABS: MPV 8.6 fL (7.6-11.3)
[2018-09-02 01:26] LABS: Hematocrit 20.8 % (36.0-45.0)
[2018-09-02 01:27] LABS: Platelet Estimate ND
[2018-09-02 06:31] LABS: Absolute Lymphocytes (CBC) 2.2 K/uL (0.7-4.9); Absolute Neutrophil 0.1 K/uL (1.8-8.0); Eosinophils % 0.6 % (0-4.4); Hematocrit 21.5 % (36.0-45.0); Lymphocytes % 95.1 % (15.3-44.8); MCH 31.6 pg (27.0-35.0); MCV 86.3 fL (80-100); MPV 9.1 fL (7.6-11.3); Monocytes % 1.2 % (3.3-12.3); RBC Red Blood Cell Count 2.49 M/uL (3.86-4.86)
[2018-09-02 06:45] LABS: ALT/SGPT 16 U/L (12-78); AST/SGOT 10 U/L (15-37); Albumin 2.9 g/dL (3.4-5.0); Alkaline Phosphatase 83 U/L (45-117); BUN Blood Urea Nitrogen 9 mg/dL (7-18); Bicarbonate 27 mmol/L (21-32); Bilirubin Total 0.4 mg/dL (0.2-1.0); Glucose Level 101 mg/dL (74-106); Potassium 3.8 mmol/L (3.5-5.1); Protein, Total 6.3 g/dL (6.4-8.2); Sodium Level 144 mmol/L (136-145)
[2018-09-02] MEDS: NA CHLORIDE 0.9% 1,000 ML IV SCH ×3 (06:48→23:27)
[2018-09-02] MEDS: NYSTATIN 500,000 UNIT/5 ML UDC PO SCH ×3 (08:23→20:58)
[2018-09-02] MEDS: Levofloxacin500mg IV 500 MG/100 ML BAG IV SCH (08:23)
[2018-09-02] MEDS: PSYLLIUM 1 PKT PO SCH (08:23)
[2018-09-02] MEDS: DOCUSATE NA 100 MG CAP PO PRN (08:23)
[2018-09-02] MEDS ORDERED: POTASSIUM CL SA 10 MEQ TAB PO ONE (09:00)
[2018-09-02 13:43] LABS: RBC Red Blood Cell Count 2.58 M/uL (3.86-4.86)
[2018-09-02 13:55] LABS: Bilirubin Direct 0.1 mg/dL (0-0.2); Bilirubin Total 0.4 mg/dL (0.2-1.0)
[2018-09-02] MEDS: ACETAMINOPHEN 500 MG TAB PO PRN (16:08)
[2018-09-02] MEDS ORDERED: NA CHLORIDE 0.9% 100 ML ONE (16:52)
[2018-09-02] MEDS ORDERED: NA CHLORIDE 0.9% 100 ML IV ONE (17:57)
--- NOTE | 2018-09-02 18:22 | P.PN ---
Subjective Date of Service: 09/02/18 Chief Complaint: low Platelet count Subjective: No new changes, No C/O voiced, Improving Patient seen and examined at bedside. No family at bedside. Chart reviewed and Case discussed with nursing staff and Dr. Balbuena. Afebrile in about 24 hr Review of Systems As noted Physical Examination - Vital Signs Temperature: 99.1 F Blood Pressure: 122/60 Pulse: 77 Respirations: 20 Pulse Ox (%): 96 - Physical Exam General: Alert, In no apparent distress, Oriented x3 HEENT: Atraumatic, PERRLA, EOMI Neck: Supple, JVD not distended Respiratory: Clear to auscultation bilaterally, Normal air movement Cardiovascular: Regular rate/rhythm, Normal S1 S2 Gastrointestinal: Normal bowel sounds, No tenderness Musculoskeletal: No tenderness Integumentary: No rashes Neurological: Normal speech, Normal tone, Normal affect Lymphatics: No axilla or inguinal lymphadenopathy Assessment And Plan - Plan This is a 68-year-old female with: Thrombocytopenia: She is status post 4 units of platelets. Platelet a recheck of 11, will go ahead and transfuse 2 more units. 1 hr post transfusion platelet check. Anemia likely of chronic disease Hemoglobin stable at 7.9 this morning. Followup on hemolysis labs (LDH, retic count 2, direct bili, haptoglobin) Possible pneumonia on chest CT. Continue IV Levaquin. Abdominal pain Abdominal CT ordered, without any acute abnormalities. Abdominal pain now resolved. History of CLL Dr. Balbuena/Agatha, oncology consulted. Spoke to Dr. Snider on the phone, recommendations appreciated. DVT prophylaxis: Hold this time GI prophylaxis: Not needed Diet: Regular Disposition: Continue monitoring. She will need to follow up outpatient with oncology. She states that she has appointment scheduled for the with a new oncologist in [place]. Physician Review: Patient Assessed, Agree with Above Assessment and Plan Time Spent Managing PTS Care (In Minutes): 35
[2018-09-02 20:42] LABS: MPV 8.2 fL (7.6-11.3)
[2018-09-02 21:10] LABS: Platelet Estimate DECR
[2018-09-03] MEDS ORDERED: PANTOPRAZOLE 40 MG INJ IVP ONE (04:18)
[2018-09-03] MEDS ORDERED: SODIUM CHLORIDE 0.9% 10ML INJ IV PRN (04:18)
[2018-09-03] MEDS: ONDANSETRON 4 MG/2 ML VIAL IV PRN (04:23)
[2018-09-03] MEDS: ACETAMINOPHEN 500 MG TAB PO PRN ×2 (04:26→14:40)
[2018-09-03 05:07] LABS: Absolute Lymphocytes (CBC) 1.9 K/uL (0.7-4.9); Absolute Neutrophil 0.1 K/uL (1.8-8.0); Basophils % 0.1 % (0-1.3); Eosinophils % 0.9 % (0-4.4); Lymphocytes % 92.9 % (15.3-44.8); MCH 30.6 pg (27.0-35.0); MCV 87.7 fL (80-100); MPV 7.9 fL (7.6-11.3); Monocytes % 1.1 % (3.3-12.3); RBC Red Blood Cell Count 2.38 M/uL (3.86-4.86)
[2018-09-03 05:09] LABS: Hematocrit 20.9 % (36.0-45.0)
[2018-09-03 05:31] LABS: BUN Blood Urea Nitrogen 10 mg/dL (7-18); Bicarbonate 25 mmol/L (21-32); Glucose Level 106 mg/dL (74-106); Sodium Level 142 mmol/L (136-145)
[2018-09-03] MEDS: NA CHLORIDE 0.9% 1,000 ML IV SCH ×2 (08:40→22:00)
[2018-09-03] MEDS: Levofloxacin500mg IV 500 MG/100 ML BAG IV SCH (08:50)
[2018-09-03] MEDS: DOCUSATE NA 100 MG CAP PO PRN (08:50)
[2018-09-03] MEDS: PSYLLIUM 1 PKT PO SCH (08:50)
[2018-09-03] MEDS: NYSTATIN 500,000 UNIT/5 ML UDC PO SCH ×3 (08:50→20:27)
[2018-09-03] MEDS: PANTOPRAZOLE 40 MG INJ IVP SCH ×2 (08:53→20:27)
[2018-09-03 11:45] LABS: Anisocytosis 1+; Blood Morphology Comment NOTED (NOT SEEN); Platelet Estimate DECR
[2018-09-03] MEDS ORDERED: NA CHLORIDE 0.9% 100 ML ONE (15:08)
[2018-09-03] MEDS ORDERED: NA CHLORIDE 0.9% 100 ML IV ONE (16:37)
--- NOTE | 2018-09-03 18:26 | P.PN ---
Date of Service: 09/03/18 (Hematology/Oncology) Pt seen and examined at 9am this morning. Nurse at bedside for the entire encounter. Ms. 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 She did not agree for chemo-immunotherapy but rather opted for various holistic measures e.g CBD oil, ozone therapy etc. Due to cytopenias, she also had a bone marrow biopsy in March 2018 which confirmed CLL (98% lymphocytes). She did not follow up with chemo-immunotherapy as outpatient. She has been back and forth with various hospitalizations. During one hospitalization in [facility], she established care with another oncologist, Dr Ortiz in [facility], when she briefly moved to be with her daughter. During that time, she agreed for treatment and was placed on ibrutinib (oral medication). She continued to have repeated hospitalizations for various reasons including symptomatic anemia and thrombocytopenia requiring multiple transfusions. She claims poor tolerance to dose reduced ibrutinib. Also reportedly had GI bleeding (s/p EGD in Jul [address] [facility]- report: Hiatal hernia, localized gastritis status post ablation. No identified source of bleeding, but ablation was done to ensure eradication of the inflamed area and to cauterize any underlying AVMs. Continue PPI. Need to keep the platelets at adequate level. Otherwise, the patient will continue to have bleeding). Ibrutinib was held. Patient also reports having a small bowel capsule EGD by Dr Toledo for which she is awaiting a follow up to discuss results. 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 She claims that she might have another bone marrow biopsy/ and questions possibility of HSCT etc. She is now admitted due to severe anemia and thrombocytopenia. She has received multiple units of PRBC/ platelets without a significant response. She was apparently febrile during the transfusions as well. A hemolytic work up was done which was negative. No noted bleeding episodes while in hospital. She is on antibiotics for ? pneumonia/ prophylaxis. When seen today, she feels much better symptomatically. Denies any bleeding. She now states that she is open to treatment, even if its chemotherapy. Ongoing low grade fevers and fatigue are her main s/s. EXAM Vitals stable: Gen: Comfortable, sitting in chair, appears to be in no acute distress. Skin, Hair & Nails: normal texture, normal turgor and color. No open wounds; bruising +. Head: normocephalic, atraumatic. Eyes: anicteric, no injection of conjunctivae, pallor+ Ears: hearing grossly intact. Nose: nares patent. Throat: no erythema, no exudate. Neck: neck supple, palpable cervical lymphadenopathy. Respiratory: good respiratory effort, clear to auscultation, no wheezing. Cardiovascular: regular rate and rhythm, no murmurs, no cyanosis. Abdomen: bowel sounds present and equal in all four quadrants, abdomen is soft, nondistended, no masses, splenomegaly+ Peripheral Vascular: no pedal edema. Neurological: AAOx3, moving all extremities. Labs/ imaging Wbc 2.2/ 100% lymphocytes/ ANC 100 Hb 7.3g Plt 11 (improved to 30 post 2 units and then dropped to 19) Retic 0.08%, LDH 141, DEMAR neg, Bi 0.4; haptoglobin 198 CT chest/ abdomen: progression in size of LN/ spleen ? pulmonary edema vs interstitial pna. Smear review report in chart Recommendations: Advanced Stage IV CLL with significant severe cytopenias. Clinical progression of disease with worsening cytopenias, transfusion dependant. Severe anemia: Hemolysis work up negative. S/p 3 units (Hb somewhat improved from 5.9 to 7.9 but again downtrending). Some concern about possibility of a transfusion reactions vs bleed. CT abdomen negative for bleeds/ clinically no evidence of GI bleed at this time/ Transfusion reaction work up negative as well. Check iron panel, B12, folate. Leucopenia with severe neutropenia due to underlying disease/ packed BM. On prophylactic levofloxacin. Maintain reverse isolation. Severe thrombocytopenia: She has received multiple platelet transfusions with a transient response- multifactorial etiology- refractory to plt transfusion/ vs underlying disease/ vs immune mediated component (ITP)/ splenomegaly etc. Hemolytic work up negative. Discussed about a trial of steroids to improve plt count / also options of IVIG. She claims prior poor tolerance to prednisone in the past (? allergic to prednisone) and remains skeptical about IVIG. Check IgG level. She understands that there is significant disease progression given the cytopenias. She is now open to treatment for CLL including chemo-immunotherapy. I do not think chemotherapy is an option given her cytopenias/ or atleast it could be challenging in our local setting. ? Role of immunotherapy (like rituximab alone ) at this time but to keep in mind the risk of possible tumor lysis on treatment. I explained to her all the above scenarios and she still wishes to think about it. I feel given impending and potential complications, it might be advisable that she be transferred to a tertiary setting with a good blood bank support, monitoring/ managing potential complications/ IVIG/ other treatment etc. I also discussed about her advanced care directives. She states that she has made affidavits of her advanced care directives but does not remember what she stated in the document. D/w Dr Wick who will follow up on this. Given that she remains skeptical and not receptive to treatment, also discussed about Hospice care. She stated that she is not ready yet and awaiting further options to be discussed with her new oncologist, if any on Sep 07. She seems to be currently comfortable with no evidence of bleeding. - Transfuse PRBC to keep Hb >8. - Transfuse single donor platelets if [place]t [place] less [place] [id number] or if bleeding. Blood bank to check for platelet refractoriness. Likely might need type specific plts. Case d/w Dr Wick in detail. Given limited availability of resources locally and complexity of case with potential impending complications, d/w RESOURCE RECOVERY SPECIALIST who agrees with the transfer as well.
--- NOTE | 2018-09-03 18:43 | P.DS ---
Admission Date: 08/30/18 Discharge Date: 09/03/18 Disposition: TRANSFER TO [facility] Discharge Condition: FAIR Reason for Admission: low Platelet count Consultations: Oncology Brief History of Present Illness: This is a 68-year-old female with history of CLL, history of chronic transfusions due to anemia and low platelet counts admitted for low platelet count. Per patient, she woke up this morning noted on her my patient portal that her platelets were low from the blood work that her PCP par[place] and she figured should come into the ER to get transfusion. She is complaining of mild fever yesterday, increasing dizziness as well as increasing bleeding from the gums and increased bruises on her body. She is also complaining of some nausea intermittently. At the time of my exam, she was alert oriented x3, not in any acute distress and no evidence of any active bleeding in the gums, nose or anywhere else. Hospital Course: This is a 68-year-old female with a history of CLL, who has been seen by our oncologists here about a year ago. She has underwent a few different therapies for CLL, including chemotherapy and pills. Patient has seen a couple different oncologist for 2nd opinion, has also tried herbal medications/interventions, she has also had a trial of pill form, which we are unsure if she really does though she did have some bleeding from that and therefore was stopped. She was admitted for low platelet count. Throughout this admission, she was treated symptomatically with 6 units of platelet transfusions as well as in PRBCs. Oncology was consulted, recommendations are very much appreciated. Even after the platelet transfusions, patient's numbers not adequately responding, not increasing as it should. This could likely be secondary to ITP, progression of CLL, failure after multiple transfusions. Per oncology team, patient and does need higher blood bank support, immediate treatment for CLL, and she is at increased risk for tumor lysis syndrome. For these reasons, she was transferred to [facility]. Vital Signs/Physical Exam: Temp Pulse Resp BP Pulse Ox 98.5 F 72 16 126/61 96 09/03/18 16:00 09/03/18 16:00 09/03/18 16:00 09/03/18 16:00 09/03/18 16:00 General: Alert, In no apparent distress, Oriented x3 HEENT: Atraumatic, PERRLA, EOMI Neck: Supple, JVD not distended Respiratory: Clear to auscultation bilaterally, Normal air movement Cardiovascular: Regular rate/rhythm, Normal S1 S2 Gastrointestinal: Normal bowel sounds, No tenderness Musculoskeletal: No tenderness Integumentary: No rashes Neurological: Normal speech, Normal tone, Normal affect Lymphatics: No axilla or inguinal lymphadenopathy Laboratory Data at Discharge: WBC 2.1 K/uL (4.3-10.9) L 09/03/18 04:36 Hgb 7.3 g/dL (12.0-15.0) L* 09/03/18 04:36 Hct 20.9 % (36.0-45.0) L* 09/03/18 04:36 Plt Count 19 K/uL (152-406) L* D 09/03/18 04:36 PT 14.1 SECONDS (9.5-12.5) H 08/31/18 14:30 INR 1.19 08/31/18 14:30 Sodium 142 mmol/L (136-145) 09/03/18 04:36 Potassium 4.0 mmol/L (3.5-5.1) 09/03/18 04:36 BUN 10 mg/dL (7-18) 09/03/18 04:36 Creatinine 0.60 mg/dL (0.55-1.3) 09/03/18 04:36 Glucose 106 mg/dL (74-106) 09/03/18 04:36 Phosphorus 4.7 mg/dL (2.5-4.9) 08/30/18 06:00 Magnesium 2.2 mg/dL (1.8-2.4) 08/29/18 12:30 Total Bilirubin 0.4 mg/dL (0.2-1.0) 09/02/18 13:26 AST 10 U/L (15-37) L 09/02/18 05:45 ALT 16 U/L (12-78) 09/02/18 05:45 Alkaline Phosphatase 83 U/L (45-117) 09/02/18 05:45 Lipase 96 U/L (73-393) 08/29/18 12:30 Home Medications: traMADol HCL [Ultram*] 50 mg PO Q6H PRN 06/27/18 Docusate [Colace Cap*] 100 mg PO DAILY #30 cap 07/13/18 Pantoprazole [Protonix Tab*] 40 mg PO BIDAC #60 tab 07/13/18 Cholecalciferol (Vitamin D3) [Vitamin D 1000 Iu Tab*] 1 pill PO DAILY 08/29/18 Lactobacillus Acidophilus [Probiotic] 1 pill PO DAILY 08/29/18 Ondansetron HCl [Zofran] 4 mg PO Q6H PRN 08/29/18 Psyllium [Metamucil (Hydrocil)*] 1 pkt PO DAILY packet 09/03/18 Diet: Regular Activity: Ad jamaal Physician Review: Patient Assessed, Agree with Above Assessment and Plan Time spent managing pt's care (in minutes): 55
[2018-09-04 00:18] VITALS: BP 134/64; TEMP 98.5; O2SAT 95
== END 2018-09-04 00:15 | disposition short-term general hospital (02) | DRG 840 ==
LOC: ER 11:21 → ERHOLD 14:11 → 4TH 16:11 → OBSVTOIN 08-30 17:24
PROVIDERS: ADMIT Family Medicine; ATTEND Family Medicine
PROC: 30233R1 Transfusion of Nonautologous Platelets into Peripheral Vein, Percutaneous Approach (ICD-10-PCS; principal; 2018-08-30)
PROC: 30233N1 Transfusion of Nonautologous Red Blood Cells into Peripheral Vein, Percutaneous Approach (ICD-10-PCS; 2018-08-31)
DX: C91.10 Chronic lymphocytic leukemia of B-cell type not having achieved remission (principal); J18.9 Pneumonia, unspecified organism; D69.6 Thrombocytopenia, unspecified; D63.8 Anemia in other chronic diseases classified elsewhere; Z88.0 Allergy status to penicillin; Z88.8 Allergy status to other drugs, medicaments and biological substances; R10.9 Unspecified abdominal pain; D70.9 Neutropenia, unspecified; R50.9 Fever, unspecified
CPT/HCPCS: 36415; 36430; 71045; 71275; 74150; 80048; 80053; 80076; 81001; 81003; 82247; 82248; 83010; 83605; 83615; 83690; 83735; 83880; 84100; 84145; 84439; 84443; 84484; 85014; 85018; 85025; 85044; 85049; 85610; 86850; 86900; 86901; 87040; 87086; 87088; 87804; 93005; 93970; 94760; 96361; 96365; 96375; 99284; C9113; J2270; J2405; J2550; J7030; P9016; P9035; Q9967

== ENCOUNTER 2018-09-13 07:43 | Observation (INO) | payer OTHER ==
--- OUTSIDE RECORDS SUMMARY | 2018-09-13 07:46 | XMS REPORT | Clinical Summary ---
:1950 Author Organization [facility] [employer] Address [address] [place] [address] Care Team Providers Name Role Phone Edith [...] 30 days. 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 CLL (chronic lymphocytic leukemia) 07/24/2018 Anemia 07/24/2018 Hematochezia 07/24/2018 Splenomegaly 07/24/2018 Thrombocytopenia 07/23/2018 Encounters Date Type Specialty Care Team Description 08/28/2018 Office Visit Gynecologic Nikky Hanleyrna YANELI III (vulvar Oncology MD Darrel intraepithelial neoplasia III) 08/13/2018 - Emergency General Internal Higinio Hand Thrombocytopenia ( HCC) (Primary Dx); 08/14/2018 Medicine Javad Hsieh Anemia, unspecified type; CLL (chronic lymphocytic leukemia) (HCC) Rico Heath MD 08/10/2018 Orders Only Oncology Allie Garza MD 08/07/2018 Telephone Oncology Carine Jacobsen, HARLEY 07/27/2018 Orders Only Oncology Delmar, Anemia, unspecified type HARLEY Hawk (Primary Dx) 07/26/2018 Telephone Oncology Pat Hurtado MA 07/26/2018 Orders Only Oncology Genesis, Pat, Anemia, unspecified type ( Primary Dx); MA Thrombocytopenia (HCC) 07/26/2018 Orders Only Oncology Wally Hurtadoia, Anemia, unspecified type ( Primary Dx); MIKE Thrombocytopenia (HCC) 07/23/2018 - Emergency General Internal Don Pickard Thrombocytopenia ( [facility]) (Primary Dx); 07/25/2018 Medicine MD Alejandra Anemia, unspecified type Ivis Hughes MD Opara, Emmanuel C., MD after 09/12/2017 Family History Medical History Relation Name Comments [...] Taken Blood Pressure 163/87 08/28/2018 1:06 PM NURSERY HELPER Pulse 84 08/28/2018 1:06 PM NURSERY HELPER Temperature 36.8 C (98.2 F) 08/14/2018 11:28 AM NURSERY HELPER Respiratory Rate 19 08/14/2018 11:28 AM NURSERY HELPER Oxygen Saturation 98% 08/14/2018 11:28 AM NURSERY HELPER Inhaled Oxygen Concentration - - Weight 87.1 kg (192 lb) 08/28/2018 1:06 PM NURSERY HELPER Height 160 cm (5' 3") 08/28/2018 1:06 PM NURSERY HELPER Body Mass Index 34.01 08/28/2018 1:06 PM NURSERY HELPER Plan of Treatment Date Type Specialty Care Team Description 09/26/2018 Clinical Support Gynecologic Oncology 10/12/2018 Hospital Encounter Obstetrics and Talon, Georgina Gynecology MD Darrel [address] [place] [address] 10/12/2018 Surgery Obstetrics and Georgina Hanley WIDE EXCISION, VULVA Gynecology MD Darrel [address] [place] [address] Health Maintenance Due Date Last Done Comments BREAST CANCER SCREENING 02/25/2002 COLON CANCER SCREENING 02/25/2002 SHINGRIX VACCINE (1 of 2) 02/25/2002 ZOSTER VACCINE 2012 PNEUMOCOCCAL POLYSACCHARIDE VACCINE AGE 65 AND OVER 02/25/2017 PNEUMOCOCCAL-13 02/25/2017 INFLUENZA VACCINE 05/09/2018 Implants Implanted Type Area Contact Lens Blocker Device Shelf Model / Identifier Expiration Serial / Date Lot Bone Plate Bone Left: Ankle Plate Bone Plate-01/21/2003 Bone Left: Ankle Implanted: 01/21/2003 (Quantity not on file) Plate Mesh-10/14/2005 Mesh Abdomen, Implanted: 10/14/2005 (Quantity not on file) Middle Quadrant/Non Specific Procedures Procedure Name Priority Date/Time Associated Comments Diagnosis MANUAL DIFFERENTIAL Routine 08/14/2018 5:58 Results for this AM NURSERY HELPER procedure are in the results section. ESTIMATED GFR Routine 08/14/2018 5:58 Results for this AM NURSERY HELPER procedure are in the results section. BASIC METABOLIC PANEL Routine 08/14/2018 5:58 Results for this AM NURSERY HELPER procedure are in the results section. CBC WITH PLATELET AND Routine 08/14/2018 5:58 Results for this DIFFERENTIAL AM NURSERY HELPER procedure are in the results section. MANUAL DIFFERENTIAL Routine 08/13/2018 8:35 Results for this PM NURSERY HELPER procedure are in the results section. CBC WITH PLATELET AND Routine 08/13/2018 8:35 Results for this DIFFERENTIAL PM NURSERY HELPER procedure are in the results section. TRANSFUSE PLATELETS STAT 08/13/2018 7:08 PM NURSERY HELPER TRANSFUSE PLATELETS STAT 08/13/2018 5:31 PM NURSERY HELPER TRANSFUSE RED BLOOD STAT 08/13/2018 2:53 CELLS PM NURSERY HELPER TRANSFUSE RED BLOOD STAT 08/13/2018 10:25 CELLS AM NURSERY HELPER TROPONIN Timed 08/13/2018 7:50 Results for this AM NURSERY HELPER procedure are in the results section. URINALYSIS SCREEN AND STAT 08/13/2018 3:36 Results for this MICROSCOPY, WITH REFLEX AM NURSERY HELPER procedure are in TO CULTURE the results section. URINE CULTURE STAT 08/13/2018 3:36 Results for this AM NURSERY HELPER procedure are in the results section. MANUAL DIFFERENTIAL STAT 08/13/2018 3:31 Results for this AM NURSERY HELPER procedure are in the results section. ESTIMATED GFR STAT 08/13/2018 3:31 Results for this AM NURSERY HELPER procedure are in the results section. MAGNESIUM LEVEL STAT 08/13/2018 3:31 Results for this AM NURSERY HELPER procedure are in the results section. RETICULOCYTE COUNT STAT 08/13/2018 3:31 Results for this AM NURSERY HELPER procedure are in the results section. TROPONIN STAT 08/13/2018 3:31 Results for this AM NURSERY HELPER procedure are in the results section. PARTIAL THROMBOPLASTIN STAT 08/13/2018 3:31 Results for this TIME (PTT) AM NURSERY HELPER procedure are in the results section. PROTHROMBIN TIME WITH STAT 08/13/2018 3:31 Results for this INR AM NURSERY HELPER procedure are in the results section. COMPREHENSIVE METABOLIC STAT 08/13/2018 3:31 Results for this PANEL AM NURSERY HELPER procedure are in the results section. CBC WITH PLATELET AND STAT 08/13/2018 3:31 Results for this DIFFERENTIAL AM NURSERY HELPER procedure are in the results section. ECG ED PRELIMINARY Routine 08/13/2018 3:17 Results for this INTERPRETATION AM NURSERY HELPER procedure are in the results section. SC CRITICAL CARE, E/M Routine 08/13/2018 3:17 Results for this 30-74 MINUTES AM NURSERY HELPER procedure are in the results section. ECG 12-LEAD STAT 08/13/2018 2:49 AM NURSERY HELPER PREPARE PLATELET STAT 08/13/2018 2:44 Results for this PHERESIS AM NURSERY HELPER procedure are in the results section. PREPARE RBC STAT 08/13/2018 2:44 Results for this AM NURSERY HELPER procedure are in the results section. TYPE AND SCREEN STAT 08/13/2018 2:44 Results for this AM NURSERY HELPER procedure are in the results section. MISCELLANEOUS [...] procedure are in the results section. after 09/12/2017 Results Estimated GFR (08/14/2018 5:58 AM NURSERY HELPER)Only the most recent of5 resultswithin the time period is included. Estimated GFR >=90 mL/min/1.73 m2 [facility] DEPARTMENT OF Comment: PATHOLOGY AND GENOMIC CatergoryUnitsInterpretation MEDICINE G1 >=90 Normal or high G2 60-89Mildly decreased [id number] to moderately decreased [id number] to severely decreased G4 15-29Severely decreased G5 <15Kidney failure The eGFR was calculated using the Chronic Kidney Disease Epidemiology Collaboration (CKD-EPI) equation. Interpretation is based on recommendations of the National Kidney Foundation-Kidney Disease Outcomes Quality Initiative (NKF-KDOQI) published in 2014. Specimen Plasma specimen Performing Organization Address City/State/Zipcode Phone Number [facility] DEPARTMENT OF PATHOLOGY [address] [facility] [place] [address] AND GENOMIC MEDICINE Manual differential (08/14/2018 5:58 AM NURSERY HELPER)Only the most recent of7 resultswithin the time period is included. Manual differential PERFORMED [facility] DEPARTMENT OF PATHOLOGY AND GENOMIC MEDICINE Neutrophils 3.0 (L) 39.0 - 69.0 % [facility] DEPARTMENT OF PATHOLOGY AND GENOMIC MEDICINE Lymphocytes 97.0 (H) 25.0 - 45.0 % [facility] DEPARTMENT OF PATHOLOGY AND GENOMIC MEDICINE Monocytes 0.0 0.0 - 10.0 % [facility] DEPARTMENT OF PATHOLOGY AND GENOMIC MEDICINE Eosinophils 0.0 0.0 - 5.0 % [facility] DEPARTMENT OF PATHOLOGY AND GENOMIC MEDICINE Basophils 0.0 0.0 - 1.0 % [facility] DEPARTMENT OF PATHOLOGY AND GENOMIC MEDICINE Reactive lymphocytes Few [facility] DEPARTMENT OF PATHOLOGY AND GENOMIC MEDICINE Platelet slide review Mkd decreased (A) [facility] DEPARTMENT OF PATHOLOGY AND GENOMIC MEDICINE Anisocytosis Moderate [facility] DEPARTMENT OF PATHOLOGY AND GENOMIC MEDICINE Polychromasia Moderate [facility] DEPARTMENT OF PATHOLOGY AND GENOMIC MEDICINE Spherocytes Occasional [facility] DEPARTMENT OF PATHOLOGY AND GENOMIC MEDICINE Ovalocytes Moderate [facility] DEPARTMENT OF PATHOLOGY AND GENOMIC MEDICINE Smudge cells Few [facility] DEPARTMENT OF PATHOLOGY AND GENOMIC MEDICINE Performing Organization Address City/State/Zipcode Phone Number [facility] DEPARTMENT OF PATHOLOGY [address] [place] [address] AND GENOMIC MEDICINE CBC with platelet and differential (08/14/2018 5:58 AM NURSERY HELPER)Only the most recent of7 resultswithin the time period is included. WBC 2.2 (L) 4.5 - 11.0 k/uL [facility] DEPARTMENT OF PATHOLOGY AND GENOMIC MEDICINE RBC 3.17 (L) 4.20 - 5.50 m/uL [facility] DEPARTMENT OF PATHOLOGY AND GENOMIC MEDICINE HGB 9.7 (L) 12.0 - 16.0 g/dL [facility] DEPARTMENT OF PATHOLOGY AND GENOMIC MEDICINE HCT 27.9 (L) 37.0 - 47.0 % [facility] DEPARTMENT OF PATHOLOGY AND GENOMIC MEDICINE MCV 88.0 82.0 - 100.0 fL [facility] DEPARTMENT OF PATHOLOGY AND GENOMIC MEDICINE MCH 30.6 27.0 - 34.0 pg [facility] DEPARTMENT OF PATHOLOGY AND GENOMIC MEDICINE MCHC 34.8 31.0 - 37.0 g/dL [facility] DEPARTMENT OF PATHOLOGY AND GENOMIC MEDICINE RDW - SD 44.6 37.0 - 55.0 fL [facility] DEPARTMENT OF PATHOLOGY AND GENOMIC MEDICINE MPV 10.4 6.9 - 11.0 fL [facility] DEPARTMENT OF PATHOLOGY AND GENOMIC MEDICINE Platelet count 35 (LL) 150 - 400 K/uL [facility] DEPARTMENT OF PATHOLOGY Comment: AND GENOMIC MEDICINE Final results called to and read back by ARNALDO ROBERTSON RN 08/14/2018 08:04 JLABQLD/ CU Nucleated RBC 0.00 /100 WBC [facility] DEPARTMENT OF PATHOLOGY AND GENOMIC MEDICINE Neutrophils 3.0 (L) 39.0 - 69.0 % [facility] DEPARTMENT OF PATHOLOGY AND GENOMIC MEDICINE Lymphocytes 97.0 (H) 25.0 - 45.0 % [facility] DEPARTMENT OF PATHOLOGY AND GENOMIC MEDICINE Monocytes 0.0 0.0 - 10.0 % [facility] DEPARTMENT OF PATHOLOGY AND GENOMIC MEDICINE Eosinophils 0.0 0.0 - 5.0 % [facility] DEPARTMENT OF PATHOLOGY AND GENOMIC MEDICINE Basophils 0.0 0.0 - 1.0 % [facility] DEPARTMENT OF PATHOLOGY AND GENOMIC MEDICINE Specimen Blood Performing Organization Address City/[facility] Phone Number [facility] DEPARTMENT PATHOLOGY [address] [place] [address] AND [employer] [facility] Basic metabolic panel (08/14/2018 5:58 AM NURSERY HELPER)Only the most recent of3 resultswithin the time period is included. Sodium 141 135 - 148 mEq/L [facility] DEPARTMENT OF PATHOLOGY AND GENOMIC MEDICINE Potassium 4.1 3.5 - 5.0 mEq/L [facility] DEPARTMENT OF PATHOLOGY AND GENOMIC MEDICINE Chloride 104 98 - 112 mEq/L [facility] DEPARTMENT OF PATHOLOGY AND GENOMIC MEDICINE CO2 24 24 - 31 mEq/L [facility] DEPARTMENT OF PATHOLOGY AND GENOMIC MEDICINE Anion gap 13@ANIO 7 - 15 mEq/L [facility] DEPARTMENT OF PATHOLOGY AND GENOMIC MEDICINE BUN 11 8 - 23 mg/dL [facility] DEPARTMENT OF PATHOLOGY AND GENOMIC MEDICINE Creatinine 0.69 0.50 - 0.90 mg/dL [facility] DEPARTMENT OF PATHOLOGY AND GENOMIC MEDICINE Glucose 107 (H) 65 - 99 mg/dL [facility] DEPARTMENT OF PATHOLOGY AND GENOMIC MEDICINE Calcium 9.1 8.8 - 10.2 mg/dL [facility] DEPARTMENT OF PATHOLOGY AND GENOMIC MEDICINE Specimen Plasma specimen Performing Organization Address City/[facility] Phone Number [facility] DEPARTMENT [address] [employer] [facility] Transfuse platelets (08/13/2018 7:08 PM NURSERY HELPER)Only the most recent of6 resultswithin the time period is included.Transfuse RBC (08/13/2018 2:53 PM NURSERY HELPER )Only the most recent of4 resultswithin the time period is included.Troponin ( 7:50 AM NURSERY HELPER)Only the most recent of3 resultswithin the time period is included. Troponin <0.30 0.00 - 0.30 ng/mL [facility] DEPARTMENT OF PATHOLOGY Comment: AND GENOMIC MEDICINE 0.11 - 1.49 ng/mlMay indicate increased risk of acute coronary syndrome. >=1.5 ng/mlConsistent with acute myocardial infarction. The diagnostic value of a single normal or non-diagnostic result is questionable.Serial samples at 2-6 hour intervals are required to rule out acute myocardial injury. Specimen Plasma specimen Performing Organization Address City/State/Zipcode Phone Number [facility] DEPARTMENT OF PATHOLOGY [address] [place] [address] AND [facility] Urinalysis screen and microscopy, with reflex to culture (08/13/2018 3:36 AM NURSERY HELPER)Only the most recent of2 resultswithin the time period is included. Specimen site Clean catch [facility] DEPARTMENT OF PATHOLOGY AND GENOMIC MEDICINE Color, UA Straw [facility] DEPARTMENT OF PATHOLOGY AND GENOMIC MEDICINE Appearance, UA Clear [facility] DEPARTMENT OF PATHOLOGY AND GENOMIC MEDICINE Specific gravity, UA 1.008 1.001 - 1.030 [facility] DEPARTMENT OF PATHOLOGY AND GENOMIC MEDICINE pH, UA 6.0 5.0 - 9.0 [facility] DEPARTMENT OF PATHOLOGY AND GENOMIC MEDICINE Protein, UA Negative Negative [facility] DEPARTMENT OF PATHOLOGY AND GENOMIC MEDICINE Glucose, UA Negative Negative [facility] DEPARTMENT OF PATHOLOGY AND GENOMIC MEDICINE Ketones, UA Negative Negative [facility] DEPARTMENT OF PATHOLOGY AND GENOMIC MEDICINE Bilirubin, UA Negative Negative [facility] DEPARTMENT OF PATHOLOGY AND GENOMIC MEDICINE Blood, UA Negative Negative [facility] DEPARTMENT OF PATHOLOGY AND GENOMIC MEDICINE Nitrite, UA Negative Negative [facility] DEPARTMENT OF PATHOLOGY AND GENOMIC MEDICINE Urobilinogen, UA <2.0 <2.0 E.U./dL [facility] DEPARTMENT OF PATHOLOGY AND GENOMIC MEDICINE Leukocyte esterase, UA Negative Negative [facility] DEPARTMENT OF PATHOLOGY AND GENOMIC MEDICINE Epithelial cells, UA <1 /HPF [facility] DEPARTMENT OF PATHOLOGY AND GENOMIC MEDICINE WBC, UA <1 0 - 4 /HPF [facility] DEPARTMENT OF PATHOLOGY AND GENOMIC MEDICINE RBC, UA <1 0 - 5 /HPF [facility] DEPARTMENT OF PATHOLOGY AND GENOMIC MEDICINE Bacteria, UA None seen None seen [facility] DEPARTMENT OF PATHOLOGY AND GENOMIC MEDICINE Yeast, UA None seen [facility] DEPARTMENT OF PATHOLOGY AND GENOMIC MEDICINE Yeast with pseudohyphae, UA None seen [facility] DEPARTMENT OF PATHOLOGY AND GENOMIC MEDICINE Specimen Urine Performing Organization Address [facility] Centercond Phone Number [facility] DEPARTMENT OF PATHOLOGY [address] [place] [address]. [place] [address] AND [employer] [facility] Urine culture (08/13/2018 3:36 AM NURSERY HELPER)Only the most recent of2 resultswithin the time period is included. Urine culture SEE COMMENTComment: Bacteriuria [facility] DEPARTMENT OF PATHOLOGY screen negative. AND GENOMIC MEDICINE Performing Organization Address City/[facility] Centercode Phone Number [facility] DEPARTMENT OF PATHOLOGY [address] [place] [address]. [place] [address] AND [employer] [facility] Partial thromboplastin time, activated (08/13/2018 3:31 AM NURSERY HELPER)Only the most recent of2 resultswithin the time period is included. PTT 29.5 23.0 - 36.0 sec [facility] DEPARTMENT OF Comment: PATHOLOGY AND [facility] PTT therapeutic range for unfractionated heparin is MEDICINE 61.0-112.0 seconds which corresponds to Anti-Xa 0.3-0.7 U/ml. Specimen Blood Performing Organization Address [facility] Phone Number [facility] DEPARTMENT OF PATHOLOGY [address] [place] [address]. [place] [address] AND [employer] [facility] Prothrombin time with INR (08/13/2018 3:31 AM NURSERY HELPER)Only the most recent of2 resultswithin the time period is included. Prothrombin time 13.1 11.5 - 14.5 sec [facility] DEPARTMENT OF PATHOLOGY AND GENOMIC MEDICINE INR 1.0 [facility] DEPARTMENT OF Comment: PATHOLOGY AND [facility] The International Normalized Ratio (INR) is a therapeutic MEDICINE monitoring tool for patients who are stable on oral anticoagulant therapy. An INR of 2.0-3.0 is suggested for deep vein thrombosis/pulmonary embolism. Specimen Blood Performing Organization Address [facility] Centercode Phone Number [facility] DEPARTMENT OF PATHOLOGY [address] [place] [address]. [place] [address] AND [employer] [facility] Reticulocyte count (08/13/2018 3:31 AM NURSERY HELPER)Only the most recent of2 resultswithin the time period is included. Retic %, auto 0.3 (L) 0.5 - 2.1 % [facility] DEPARTMENT OF PATHOLOGY AND [employer] MEDICINE Retic absolute, auto 0.0080 (L) 0.0210 - 0.1155 m/uL [facility] DEPARTMENT OF PATHOLOGY AND GENOMIC MEDICINE Specimen Blood Performing Organization Address [facility] Phone Number [facility] DEPARTMENT OF PATHOLOGY [address] [place] [address] AND [facility] Magnesium level (08/13/2018 3:31 AM NURSERY HELPER) Magnesium 2.0 1.6 - 2.4 mg/dL [facility] DEPARTMENT OF PATHOLOGY AND GENOMIC MEDICINE Specimen Plasma specimen Performing Organization Address [facility] Phone Number [facility] DEPARTMENT OF PATHOLOGY [address] [place] [address] AND [facility] MEDICINE Comprehensive metabolic panel (08/13/2018 3:31 AM NURSERY HELPER)Only the most recent of2 resultswithin the time period is included. Sodium 143 135 - 148 mEq/L [facility] DEPARTMENT OF PATHOLOGY AND GENOMIC MEDICINE Potassium 4.1 3.5 - 5.0 mEq/L [facility] DEPARTMENT OF PATHOLOGY AND GENOMIC MEDICINE Chloride 107 98 - 112 mEq/L [facility] DEPARTMENT OF PATHOLOGY AND GENOMIC MEDICINE CO2 24 24 - 31 mEq/L [facility] DEPARTMENT OF PATHOLOGY AND GENOMIC MEDICINE Anion gap 12@ANIO 7 - 15 mEq/L [facility] DEPARTMENT OF PATHOLOGY AND GENOMIC MEDICINE BUN 13 8 - 23 mg/dL [facility] DEPARTMENT OF PATHOLOGY AND GENOMIC MEDICINE Creatinine 0.78 0.50 - 0.90 mg/dL [facility] DEPARTMENT OF PATHOLOGY AND GENOMIC MEDICINE Glucose 112 (H) 65 - 99 mg/dL [facility] DEPARTMENT OF PATHOLOGY AND GENOMIC MEDICINE Calcium 9.4 8.8 - 10.2 mg/dL [facility] DEPARTMENT OF PATHOLOGY AND GENOMIC MEDICINE Protein 6.4 6.3 - 8.3 g/dL [facility] DEPARTMENT OF PATHOLOGY AND GENOMIC MEDICINE Albumin 3.9 3.5 - 5.0 g/dL [facility] DEPARTMENT OF PATHOLOGY AND GENOMIC MEDICINE A/G ratio 1.6 0.7 - 3.8 [facility] DEPARTMENT OF PATHOLOGY AND GENOMIC MEDICINE Alkaline phosphatase 66 35 - 104 U/L [facility] DEPARTMENT OF PATHOLOGY AND GENOMIC MEDICINE AST 13 10 - 35 U/L [facility] DEPARTMENT OF PATHOLOGY AND GENOMIC MEDICINE ALT 9 5 - 50 U/L [facility] DEPARTMENT OF PATHOLOGY AND GENOMIC MEDICINE Total bilirubin 0.3 0.2 - 1.2 mg/dL [facility] DEPARTMENT OF PATHOLOGY AND GENOMIC MEDICINE Specimen Plasma specimen Performing Organization Address [facility] Centercode Phone Number [facility] DEPARTMENT OF PATHOLOGY [address] [place], [place] [address] [address] AND GENOMIC MEDICINE ECG ED Preliminary Interpretation - NOT AN ORDER (08/13/2018 3:17 AM NURSERY HELPER)Only the most recent of2 resultswithin the time period is included. Narrative Performed At Higinio Hand MD 08/14/20188:40 PM ECG ED Preliminary Interpretation - Not an Order Performed by: HIGINIO HAND Authorized by: HIGINIO HAND ECG reviewed by ED Physician in the absence of a financial aids officer: yes Interpretation: Interpretation: abnormal Rate: ECG rate:83 ECG rate assessment: normal Rhythm: Rhythm: sinus rhythm Ectopy: Ectopy: none QRS: QRS axis:Normal QRS intervals:Normal ST segments: ST segments:Normal T waves: T waves: non-specific CRITICAL CARE (08/13/2018 3:17 AM NURSERY HELPER) Narrative Performed At Higinio Hand MD 08/14/20188:40 [...] platelet pheresis, 2 Units (08/13/2018 2:44 AM NURSERY HELPER)Only the most recent of2 resultswithin the time period is included. Product name PlateletsAph,LR Path [facility] DEPARTMENT OF Inactivated PATHOLOGY AND GENOMIC MEDICINE Unit number [id number] [facility] DEPARTMENT OF PATHOLOGY AND GENOMIC MEDICINE Product code E6326S22 [facility] DEPARTMENT OF PATHOLOGY AND GENOMIC MEDICINE Dispense status Transfused [facility] DEPARTMENT OF PATHOLOGY AND GENOMIC MEDICINE Blood expiration date [facility] DEPARTMENT OF PATHOLOGY AND GENOMIC MEDICINE Blood type code 0600 [facility] DEPARTMENT OF PATHOLOGY AND GENOMIC MEDICINE Blood type A NEGATIVE [facility] DEPARTMENT OF PATHOLOGY AND GENOMIC MEDICINE Product name Platelets, Aph#2 LR Path [facility] DEPARTMENT OF Inactiv PATHOLOGY AND GENOMIC MEDICINE Unit number [id number] [facility] DEPARTMENT OF PATHOLOGY AND GENOMIC MEDICINE Product code E3821X41 [facility] DEPARTMENT OF PATHOLOGY AND GENOMIC MEDICINE Dispense status Transfused [facility] DEPARTMENT OF PATHOLOGY AND GENOMIC MEDICINE Blood expiration date [facility] DEPARTMENT OF PATHOLOGY AND GENOMIC MEDICINE Blood type code 7300 [facility] DEPARTMENT OF PATHOLOGY AND GENOMIC MEDICINE Blood type B POSITIVE [facility] DEPARTMENT OF PATHOLOGY AND GENOMIC MEDICINE Performing Organization Address City/[facility] Centercode Phone Number [facility] DEPARTMENT OF PATHOLOGY [address] [place] [address] AND [employer] Prepare RBC, 2 Units (08/13/2018 2:44 AM NURSERY HELPER)Only the most recent of2 resultswithin the time period is included. Product name Red Blood Cells -1, [facility] DEPARTMENT OF Leukored PATHOLOGY AND GENOMIC MEDICINE Unit number [id number] [facility] DEPARTMENT OF PATHOLOGY AND GENOMIC MEDICINE Product code [id number] [facility] DEPARTMENT OF PATHOLOGY AND GENOMIC MEDICINE Dispense status Transfused [facility] DEPARTMENT OF PATHOLOGY AND GENOMIC MEDICINE Blood expiration date [facility] DEPARTMENT OF PATHOLOGY AND GENOMIC MEDICINE Blood type code 8400 [facility] DEPARTMENT OF PATHOLOGY AND GENOMIC MEDICINE Blood type AB POSITIVE [facility] DEPARTMENT OF PATHOLOGY AND GENOMIC MEDICINE Product name Red Blood Cells -1, [facility] DEPARTMENT OF Leukored PATHOLOGY AND GENOMIC MEDICINE Unit number [id number] [facility] DEPARTMENT OF PATHOLOGY AND GENOMIC MEDICINE Product code [id number] [facility] DEPARTMENT OF PATHOLOGY AND GENOMIC MEDICINE Dispense status Transfused [facility] DEPARTMENT OF PATHOLOGY AND GENOMIC MEDICINE Blood expiration date [facility] DEPARTMENT OF PATHOLOGY AND GENOMIC MEDICINE Blood type code 8400 [facility] DEPARTMENT OF PATHOLOGY AND GENOMIC MEDICINE Blood type AB POSITIVE [facility] DEPARTMENT OF PATHOLOGY AND GENOMIC MEDICINE Performing Organization Address City/[facility] Centercode Phone Number [facility] DEPARTMENT OF PATHOLOGY [address] [place] [address] AND [employer] MEDICINE Type and screen (08/13/2018 2:44 AM NURSERY HELPER)Only the most recent of2 resultswithin the time period is included. ABO grouping AB [facility] DEPARTMENT OF PATHOLOGY AND GENOMIC MEDICINE Rh type POS [facility] DEPARTMENT OF PATHOLOGY AND GENOMIC MEDICINE Antibody screen (gel) NEG [facility] DEPARTMENT OF PATHOLOGY AND GENOMIC MEDICINE Specimen Blood Performing Organization Address City/State/Zipcode Phone Number [facility] DEPARTMENT OF PATHOLOGY [id number] [facility] [place] [address] AND GENOMIC MEDICINE Miscellaneous referral test (08/10/2018)Only the most [...] mediastinal, retroperitoneal, mesenteric, inguinal, and iliac adenopathy. [id number] Procedure Note Interface, Radiology Results Incoming - [...] retroperitoneal, mesenteric , inguinal, and iliac adenopathy. [id number] Performing Organization Address City/[facility]/Zipcode Phone Number [facility] [address] [place] [address] Total iron binding capacity (07/23/2018 10:40 PM CDT) Iron level 219 (H) 37 - 145 ug/dL [facility] DEPARTMENT OF PATHOLOGY AND GENOMIC MEDICINE Iron binding capacity 250 (L) 260 - 460 ug/dL [facility] DEPARTMENT OF PATHOLOGY AND GENOMIC MEDICINE % Saturation 87.6 (H) 15.0 - 38.0 % [facility] DEPARTMENT OF PATHOLOGY AND GENOMIC MEDICINE Specimen Serum Performing Organization Address [facility] Centercode Phone Number [facility] DEPARTMENT OF PATHOLOGY [address] [place] [address] AND [facility] Rapid HIV 1 & 2 (07/23/2018 10:40 PM CDT) Rapid HIV 1 and 2 Non-Reactive Non-Reactive [facility] DEPARTMENT OF PATHOLOGY AND GENOMIC MEDICINE Specimen Blood Performing Organization Address City/State/Zipcode Phone Number [facility] DEPARTMENT OF PATHOLOGY [address] [place] [address] AND [employer] MEDICINE Flow cytometry evaluation (07/23/2018 10:40 PM CDT) [facility] DEPARTMENT OF PATHOLOGY AND GENOMIC MEDICINE Flow cytometry evaluation See link below for PDF [facility] DEPARTMENT OF Lab Report PATHOLOGY AND GENOMIC MEDICINE Specimen Blood Performing Organization Address City/[facility]/Zipcode Phone Number [facility] DEPARTMENT OF PATHOLOGY AND [address] [place] [phone] [employer] MEDICINE Hepatitis acute panel (07/23/2018 10:40 PM CDT) Hepatitis A IgM Non-reactive Non-reactive [facility] DEPARTMENT OF PATHOLOGY AND GENOMIC MEDICINE Hepatitis B core IgM Non-reactive Non-reactive [facility] DEPARTMENT OF PATHOLOGY AND GENOMIC MEDICINE Hepatitis B surface Ag Non-reactive Non-reactive [facility] DEPARTMENT OF PATHOLOGY AND GENOMIC MEDICINE Hepatitis C Ab Non-reactive Non-reactive [facility] DEPARTMENT OF PATHOLOGY AND GENOMIC MEDICINE Specimen Serum Performing Organization Address City/[facility] Centercode Phone Number [facility] DEPARTMENT OF PATHOLOGY AND [address] [place] [phone] [facility] Immunofixation, serum (07/23/2018 10:40 PM CDT) Immunofixation, serum SEE COMMENTComment: See [facility] DEPARTMENT OF electrophoresis report below. PATHOLOGY AND GENOMIC MEDICINE Specimen Serum Narrative Performed At [facility] add by pathologist reviewing [facility] DEPARTMENT OF PATHOLOGY AND GENOMIC electrophoresis. MEDICINE Performing Organization Address City/[facility] Centercode Phone Number [facility] DEPARTMENT OF PATHOLOGY AND [address] [place] [address] [facility] Serum electrophoresis (07/23/2018 10:40 PM CDT) Protein 5.3 (L) 6.3 - 8.3 g/dL [facility] DEPARTMENT OF Comment: PATHOLOGY AND 4.6-7.0 g/dL GENOMIC MEDICINE 1 week 4.4-7.6 g/dL 7 months-1year5.1-7.3 g/dL 1-2 years5.6-7.5 g/dL >3 years6.0-8.0 g/dL 18-150 6.3-8.3 g/dL SPE albumin 3.31 (L) 4.00 - 5.30 g/dL [facility] DEPARTMENT OF PATHOLOGY AND GENOMIC MEDICINE SPE alpha 1 0.19 0.10 - 0.25 g/dL [facility] DEPARTMENT OF PATHOLOGY AND GENOMIC MEDICINE SPE alpha 2 0.56 (L) 0.58 - 0.84 g/dL [facility] DEPARTMENT OF PATHOLOGY AND GENOMIC MEDICINE SPE beta 0.69 0.50 - 1.10 g/dL [facility] DEPARTMENT OF PATHOLOGY AND GENOMIC MEDICINE SPE gamma 0.56 (L) 0.60 - 1.30 g/dL [facility] DEPARTMENT OF PATHOLOGY AND GENOMIC MEDICINE SPE extended See Comment [facility] DEPARTMENT OF interpretation Comment: PATHOLOGY AND Abnormal [...] excluded.646 SPE interpretation See CommentComment: Juan F [facility] DEPARTMENT OF Adriane BAEZA, MPH; Catalina Cole PATHOLOGY AND PhD; Dionna Velez MD GENOMIC MEDICINE Specimen Serum Narrative Performed At [facility] add by pathologist reviewing [facility] DEPARTMENT OF PATHOLOGY AND GENOMIC electrophoresis. MEDICINE Performing Organization Address City/[facility]/Zipcode Phone Number [facility] DEPARTMENT OF PATHOLOGY AND [address] [place] [phone] GENOMIC MEDICINE LDH (07/23/2018 10:40 PM CDT) LDH 129 87 - 225 U/L [facility] DEPARTMENT OF PATHOLOGY AND GENOMIC MEDICINE Specimen Serum Performing Organization Address City/[facility] Centercode Phone Number [facility] DEPARTMENT OF PATHOLOGY [id number] [place] [address] AND GENOMIC MEDICINE Haptoglobin (07/23/2018 10:40 PM CDT) Haptoglobin 133 30 - 200 mg/dL [facility] DEPARTMENT OF PATHOLOGY AND GENOMIC MEDICINE Specimen Plasma specimen Performing Organization Address City/[facility] Centercode Phone Number [facility] DEPARTMENT OF PATHOLOGY AND [address] [place] [phone] GENOMIC MEDICINE Immunoglobulin A (07/23/2018 10:40 PM CDT) IgA 77 70 - 400 mg/dL [facility] DEPARTMENT OF PATHOLOGY AND GENOMIC MEDICINE Specimen Plasma specimen Narrative Performed At [facility] add by pathologist reviewing [facility] DEPARTMENT OF PATHOLOGY AND GENOMIC electrophoresis. MEDICINE Performing Organization Address City/[facility]/Zipcode Phone Number [facility] DEPARTMENT OF PATHOLOGY AND [address] [place] [phone] GENOMIC MEDICINE Immunoglobulin M (07/23/2018 10:40 PM CDT) IgM <25 (L) 33 - 255 mg/dL [facility] DEPARTMENT OF PATHOLOGY AND GENOMIC MEDICINE Specimen Plasma specimen Performing Organization Address City/[facility]/Zipcode Phone Number [facility] DEPARTMENT OF PATHOLOGY AND [address] [place] [phone] GENOMIC MEDICINE Immunoglobulin G (07/23/2018 10:40 PM CDT) IgG 704 700 - 1,600 mg/dL [facility] DEPARTMENT OF PATHOLOGY AND GENOMIC MEDICINE Specimen Plasma specimen Narrative Performed At [facility] add by pathologist reviewing [facility] DEPARTMENT OF PATHOLOGY AND GENOMIC electrophoresis. MEDICINE Performing Organization Address City/[facility]/Zipcode Phone Number [facility] DEPARTMENT OF PATHOLOGY AND [address] [place] [address] Folate RBC (group test) (07/23/2018 10:40 PM CDT) RBC folate 1,451 499 - 1,504 ng/mL [facility] DEPARTMENT OF PATHOLOGY AND GENOMIC MEDICINE Specimen Blood Performing Organization Address City/[facility] Centercode Phone Number [facility] DEPARTMENT OF PATHOLOGY AND [address] [place] [address] MEDICINE Ferritin level (07/23/2018 10:40 PM CDT) Ferritin level 1,045 (H) 13 - 150 ng/mL [facility] DEPARTMENT OF PATHOLOGY AND GENOMIC MEDICINE Specimen Plasma specimen Performing Organization Address City/[facility] Centercode Phone Number [facility] DEPARTMENT OF PATHOLOGY AND [address] [place] [address] MEDICINE Vitamin B12 level (07/23/2018 10:40 PM CDT) Vitamin B12 227 211 - 946 pg/mL [facility] DEPARTMENT OF PATHOLOGY Comment: AND GENOMIC MEDICINE Significant overlap exists between normal and deficiency states. However, most patients with deficiencies will have Serum B12 <200 pg/mL. Specimen Serum Performing Organization Address City/[facility] Centercode Phone Number [facility] DEPARTMENT OF PATHOLOGY AND [address] [place] [address] MEDICINE XR Chest 1 Vw (07/23/2018 7:27 PM CDT) Narrative Performed At EXAMINATION: XR CHEST 1 VW RADIANT INDICATION: Coughpersistent COMPARISON: None IMPRESSION: No discrete airspace disease or pulmonary edema. Right hemidiaphragmatic eventration. No pleural effusion or pneumothorax. Cardiomediastinal silhouette within normal limits for portable technique. Probable aortic calcifications. Spondylosis. Severe left shoulder osteoarthritis. [id number] Procedure Note Interface, Radiology Results Incoming - 07/23/2018 7:44 PM CDT EXAMINATION: XR CHEST 1 VW INDICATION: Cough persistent COMPARISON: None IMPRESSION: No discrete airspace disease or pulmonary edema. Right hemidiaphragmatic eventration. No pleural effusion or pneumothorax. Cardiomediastinal silhouette within normal limits for portable technique. Probable aortic calcifications. Spondylosis. Severe left shoulder osteoarthritis. [facility]-[id number] Performing Organization Address City/[facility]/Zipcode Phone Number [facility] [address] [place] [address] Direct Vaughn' (DEMAR) (07/23/2018 5:21 PM CDT) [id number] Polyspecific NEG [facility] DEPARTMENT OF PATHOLOGY AND GENOMIC MEDICINE IgG Vaughn, gel NEG [facility] DEPARTMENT OF PATHOLOGY AND GENOMIC MEDICINE Anti-complement NEG [facility] DEPARTMENT OF PATHOLOGY AND GENOMIC MEDICINE Specimen Blood Performing Organization Address City/[facility]/Zipcode Phone Number [facility] DEPARTMENT OF PATHOLOGY [address] [place] [address] AND [facility] Blood smear consult (07/23/2018 5:19 PM CDT) Blood smear consult Footnote [facility] DEPARTMENT OF Comment: PATHOLOGY AND GENOMIC Increase in Lymphocytes and increase in smudged lymphocytes, MEDICINE Thrombocytopenia, called to Mary Morrissey12:00. History of CLL.Slide reviewed by pathologist, Dr. Higgins. Performing Organization Address City/[facility]/Zipcode Phone Number [facility] DEPARTMENT OF PATHOLOGY [address] [place] [address] AND [facility] Lipase level (07/23/2018 5:19 PM CDT) Lipase 25 13 - 60 U/L [facility] DEPARTMENT OF PATHOLOGY AND GENOMIC MEDICINE Specimen Plasma specimen Performing Organization Address City/[facility]/Zipcode Phone Number [facility] DEPARTMENT OF PATHOLOGY [address] [place] [address] AND [facility] Amylase level (07/23/2018 5:19 PM CDT) Amylase 15 13 - 73 U/L [facility] DEPARTMENT OF PATHOLOGY AND GENOMIC MEDICINE Specimen Plasma specimen Performing Organization Address City/[facility]/Zipcode Phone Number [facility] DEPARTMENT OF PATHOLOGY [address] [place] [address] AND [facility] ECG 12 lead (07/23/2018 5:09 PM CDT) Ventricular rate 76 [facility] Atrial rate 76 [facility] SC interval 156 [facility] QRSD interval 82 [facility] QT interval 366 [facility] QTC interval 411 [facility] P axis 1 2 [facility] MUSE QRS axis 1 32 [facility] MUSE T wave axis 20 [facility] MUSE EKG impression Normal sinus rhythm-Cannot rule out Anterior [facility] MUSE infarct , age undetermined-Abnormal ECG-No previous ECGs available- Performing Organization Address City/State/Zipcode Phone Number [facility] [place] [address] [place] [address] after 09/12/2017 Insurance Payer Benefit Plan / Group Subscriber ID Type Phone Address [facility]ITALNew [facility] AviationH[facility]ITAL[facility] M[facility] ADV xxxxxxxx O Advance Directives Patient has advance care planning documents on file. For more information, please contact:Manan Minor[address] [place] [address]
--- OUTSIDE RECORDS SUMMARY | 2018-09-13 07:47 | XMS REPORT ---
:1950 [facility] Address [address] [place] [address] Dr. Bond [address] [place] [id number] Care Team Providers Name Role Phone JONATHANJennifer LELAND Roberts Unavailable Unavailable Problems This patient has no known problems. Allergies, Adverse Reactions, Alerts This patient has no known allergies or adverse reactions. Medications This patient has no known medications. Results Test Description Test Time Test Comments Text Results Atomic Results Result Comments CBC W/PLT COUNT & AUTO DIFFERENTIAL 2018-09-06 13:41:00 Test Item Value Reference Range Comments WHITE BLOOD CELL COUNT (BEAKER) (test ynum=675) 3.2 K/ L 3.5-10.5 RED BLOOD CELL COUNT (BEAKER) (test wzsd=470) 2.63 M/ L 3.93-5.22 HEMOGLOBIN (BEAKER) (test bepw=677) 8.0 GM/DL 11.2-15.7 HEMATOCRIT (BEAKER) (test vopq=461) 22.7 % 34.1-44.9 MEAN CORPUSCULAR VOLUME (BEAKER) (test gqvz=699) 86.3 fL 79.4-94.8 MEAN CORPUSCULAR HEMOGLOBIN (BEAKER) (test geaf=766) 30.4 pg 25.6-32.2 MEAN CORPUSCULAR HEMOGLOBIN CONC (BEAKER) (test qzof=089) 35.2 GM/DL 32.2- 35.5 RED CELL DISTRIBUTION WIDTH (BEAKER) (test kdcg=453) 13.8 % 11.7-14.4 PLATELET COUNT (BEAKER) (test dbwj=634) 13 K/CU MM 150-450 MEAN PLATELET VOLUME (BEAKER) (test irjh=579) 13.1 fL 9.4-12.3 NUCLEATED RED BLOOD CELLS (BEAKER) (test pzpl=293) 0 /100 WBC 0-0 (CELLAVISION MANUAL DIFF)2018-09-06 13:41:00 Test Item Value Reference Range Comments NEUTROPHILS - REL (CELLAVISION)(BEAKER) (test 2 % oopz=2462) LYMPHOCYTES - REL (CELLAVISION)(BEAKER) (test 97 % fnzn=4719) MONOCYTES - REL (CELLAVISION)(BEAKER) (test 1 % urzh=1947) NEUTROPHILS - ABS (CELLAVISION)(BEAKER) (test 0.06 K/ul 1.56-6.13 vmqb=0449) LYMPHOCYTES - ABS (CELLAVISION)(BEAKER) (test 3.10 K/ul 1.18-3.74 xvpe=4410) MONOCYTES - ABS (CELLAVISION)(BEAKER) (test 0.03 K/uL 0.24-0.36 cutv=1142) TOTAL COUNTED (BEAKER) (test wzec=9244) 100 WBC MORPHOLOGY (BEAKER) (test nrai=167) Normal PLT MORPHOLOGY (BEAKER) (test kwzl=704) Normal ANISOCYTOSIS (BEAKER) (test jatp=023) 2+ moderate MICROCYTES (BEAKER) (test ftaf=992) 2+ moderate ARTIFACT (CELLAVISION)(BEAKER) (test sjvt=7454) Present PLATELET CONCENTRATION (CELLAVISION)(BEAKER) Decreased (test vgvq=9213) Received comment: User comments: Slide comments:[id number] 07:54:00 Test Item Value Reference Range Comments MAGNESIUM (BEAKER) (test cuic=086) 2.0 mg/dL 1.6-2.6 BASIC METABOLIC [id number] 07:54:00 Test Item Value Reference Range Comments SODIUM (BEAKER) (test 139 meq/L 136-145 kxrr=280) POTASSIUM (BEAKER) (test 3.9 meq/L 3.5-5.1 vjwm=540) CHLORIDE (BEAKER) (test 110 meq/L 98-107 tuqb=567) CO2 (BEAKER) (test 20 meq/L 22-29 ypzj=988) BLOOD UREA NITROGEN 13 mg/dL 7-21 (BEAKER) (test ogdx=649) CREATININE (BEAKER) (test 0.61 mg/dL 0.57-1.25 bwav=098) GLUCOSE RANDOM (BEAKER) 95 mg/dL 70-105 (test mzzu=374) CALCIUM (BEAKER) (test 8.9 mg/dL 8.4-10.2 qrrm=869) EGFR (BEAKER) (test 98 mL/min/1.73 sq m ESTIMATED GFR IS NOT mrmi=2125) ACCURATE CREATININE CLEARANCE IN PREDICTING GLOMERULAR FILTRATION RATE. ESTIMATED GFR IS NOT APPLICABLE FOR DIALYSIS PATIENTS. HEPATIC FUNCTION [id number] 07:54:00 Test Item Value Reference Range Comments TOTAL PROTEIN (BEAKER) (test isfs=098) 6.1 gm/dL 6.0-8.3 ALBUMIN (BEAKER) (test bhpr=7095) 3.4 g/dL 3.5-5.0 BILIRUBIN TOTAL (BEAKER) (test irff=227) 0.5 mg/dL 0.2-1.2 BILIRUBIN DIRECT (BEAKER) (test vwcm=312) 0.2 mg/dL 0.1-0.5 ALKALINE PHOSPHATASE (BEAKER) (test zuys=021) 70 U/L 40-150 AST (SGOT) (BEAKER) (test qixi=991) 9 U/L 5-34 ALT (SGPT) (BEAKER) (test rsim=332) 7 U/L 6-55 PERIPHERAL BLOOD SMEAR - HOLD [id number] 07:11:00 Test Item Value Reference Range Comments PERIPHERAL SMEAR SAVE (BEAKER) (test wuob=2793) saved [id number] 06:18:00 Test Item Value Reference Range Comments PROTIME (BEAKER) (test mvci=953) 13.5 seconds 11.7-14.7 INR (BEAKER) (test yixd=791) 1.0 <=5.9 PARTIAL THROMBOPLASTIN TIME (BEAKER) (test 30.1 seconds 22.5-36.0 uxht=474) RECOMMENDED COUMADIN/WARFARIN INR THERAPY RANGESSTANDARD DOSE: 2.0 - 3.0 Includes: PROPHYLAXIS forvenous thrombosis, systemic embolization; TREATMENT for venous thrombosis and/or pulmonary embolus.HIGH RISK: Target INR is 2.5-3.5 for patients with mechanical heart valves.CBC W/PLT COUNT & AUTO [id number] 18:12:00 Test Item Value Reference Range Comments WHITE BLOOD CELL COUNT (BEAKER) (test nhnr=905) 3.1 K/ L 3.5-10.5 RED BLOOD CELL COUNT (BEAKER) (test mpow=242) 2.88 M/ L 3.93-5.22 HEMOGLOBIN (BEAKER) (test dpba=939) 8.6 GM/DL 11.2-15.7 HEMATOCRIT (BEAKER) (test coev=384) 25.2 % 34.1-44.9 MEAN CORPUSCULAR VOLUME (BEAKER) (test yqel=150) 87.5 fL 79.4-94.8 MEAN CORPUSCULAR HEMOGLOBIN (BEAKER) (test 29.9 pg 25.6-32.2 qddh=679) MEAN CORPUSCULAR HEMOGLOBIN CONC (BEAKER) (test 34.1 GM/DL 32.2-35.5 uchn=026) RED CELL DISTRIBUTION WIDTH (BEAKER) (test 13.8 % 11.7-14.4 oxtt=483) PLATELET COUNT (BEAKER) (test ituf=228) 11 K/CU MM 150-450 MEAN PLATELET VOLUME (BEAKER) (test shkv=408) 11.0 fL 9.4-12.3 NUCLEATED RED BLOOD CELLS (BEAKER) (test 0 /100 WBC 0-0 nsjz=279) (CELLAVISION MANUAL DIFF)2018-09-05 18:12:00 Test Item Value Reference Range Comments NEUTROPHILS - REL (CELLAVISION)(BEAKER) (test 4 % ctan=2610) LYMPHOCYTES - REL (CELLAVISION)(BEAKER) (test 90 % wlms=7086) MONOCYTES - REL (CELLAVISION)(BEAKER) (test 1 % yxgg=2226) EOSINOPHILS - REL (CELLAVISION)(BEAKER) (test 3 % rbuc=2606) BANDS - REL (CELLAVISION)(BEAKER) (test 1 % 0-10 olqq=6522) ATYPICAL LYMPHOCYTES - REL (CELLAVISION)(BEAKER) 1 % 0-0 (test zqhy=2839) NEUTROPHILS - ABS (CELLAVISION)(BEAKER) (test 0.12 K/ul 1.56-6.13 tdhe=7703) LYMPHOCYTES - ABS (CELLAVISION)(BEAKER) (test 2.79 K/ul 1.18-3.74 uzpf=3636) MONOCYTES - ABS (CELLAVISION)(BEAKER) (test 0.03 K/uL 0.24-0.36 zksd=9791) EOSINOPHILS - ABS (CELLAVISION)(BEAKER) (test 0.09 K/uL 0.04-0.36 wzsq=9163) BANDS - ABS (CELLAVISION)(BEAKER) (test 0.03 K/uL 0.00-0.80 jwto=9746) ATYPICAL LYMPHOCYTES - ABS (CELLAVISION)(BEAKER) 0.03 K/uL 0.00-0.00 (test vhci=3843) TOTAL COUNTED (BEAKER) (test kxjn=0927) 100 MANUAL NRBC PER 100 CELLS (BEAKER) (test 3 /100 WBC 0-0 sipl=4401) WBC MORPHOLOGY (BEAKER) (test txyb=376) Normal CLUMPED PLATELETS (BEAKER) (test xebb=781) Present ANISOCYTOSIS (BEAKER) (test nkwl=199) 1+ few MICROCYTES (BEAKER) (test bfyf=505) 1+ few ARTIFACT (CELLAVISION)(BEAKER) (test lbvs=0684) Present PLATELET CONCENTRATION (CELLAVISION)(BEAKER) Decreased (test qhqu=7835) Received comment: User comments: Slide comments:PERIPHERAL BLOOD SMEAR - HOLD [id number] 08:23:00 Test Item Value Reference Range Comments PERIPHERAL SMEAR SAVE (BEAKER) (test tsoq=4279) saved [id number] 07:37:00 Test Item Value Reference Range Comments MAGNESIUM (BEAKER) (test tayj=934) 2.1 mg/dL 1.6-2.6 BASIC METABOLIC [id number] 07:37:00 Test Item Value Reference Range Comments SODIUM (BEAKER) (test 139 meq/L 136-145 lnpw=261) POTASSIUM (BEAKER) (test 3.9 meq/L 3.5-5.1 bcne=520) CHLORIDE (BEAKER) (test 107 meq/L 98-107 zueh=226) CO2 (BEAKER) (test 23 meq/L 22-29 twwk=062) BLOOD UREA NITROGEN 14 mg/dL 7-21 (BEAKER) (test zjkq=951) CREATININE (BEAKER) (test 0.70 mg/dL 0.57-1.25 mjsc=002) GLUCOSE RANDOM (BEAKER) 141 mg/dL 70-105 (test obfb=713) CALCIUM (BEAKER) (test 9.7 mg/dL 8.4-10.2 prgz=833) EGFR (BEAKER) (test 84 mL/min/1.73 sq m ESTIMATED GFR IS NOT ysbq=5579) ACCURATE CREATININE CLEARANCE IN PREDICTING GLOMERULAR FILTRATION RATE. ESTIMATED GFR IS NOT APPLICABLE FOR DIALYSIS PATIENTS. HEPATIC FUNCTION [id number] 07:37:00 Test Item Value Reference Range Comments TOTAL PROTEIN (BEAKER) (test blnw=945) 7.0 gm/dL 6.0-8.3 ALBUMIN (BEAKER) (test mrjn=3308) 4.0 g/dL 3.5-5.0 BILIRUBIN TOTAL (BEAKER) (test fmgg=784) 0.6 mg/dL 0.2-1.2 BILIRUBIN DIRECT (BEAKER) (test hxlz=916) 0.2 mg/dL 0.1-0.5 ALKALINE PHOSPHATASE (BEAKER) (test hzoq=482) 82 U/L 40-150 AST (SGOT) (BEAKER) (test idug=114) 11 U/L 5-34 ALT (SGPT) (BEAKER) (test ekyz=492) 11 U/L 6-55 [id number] 07:29:00 Test Item Value Reference Range Comments PROTIME (BEAKER) (test gocg=061) 13.0 seconds 11.7-14.7 INR (BEAKER) (test wccz=063) 1.0 <=5.9 PARTIAL THROMBOPLASTIN TIME (BEAKER) (test 29.4 seconds 22.5-36.0 uyqg=702) RECOMMENDED COUMADIN/WARFARIN INR THERAPY RANGESSTANDARD DOSE: 2.0 - 3.0 Includes: PROPHYLAXIS forvenous thrombosis, systemic embolization; TREATMENT for venous thrombosis and/or pulmonary embolus.HIGH RISK: Target INR is 2.5-3.5 for patients with mechanical heart valves.[id number] 14:28:00 Test Item Value Reference Range Comments FERRITIN (BEAKER) (test tjdh=488) 2214 ng/mL 5-275 CBC W/PLT COUNT & AUTO [id number] 12:35:00 Test Item Value Reference Range Comments WHITE BLOOD CELL COUNT (BEAKER) (test ssxp=875) 1.5 K/ L 3.5-10.5 RED BLOOD CELL COUNT (BEAKER) (test ofgq=214) 2.21 M/ L 3.93-5.22 HEMOGLOBIN (BEAKER) (test hrqo=029) 6.7 GM/DL 11.2-15.7 HEMATOCRIT (BEAKER) (test uyiv=008) 20.0 % 34.1-44.9 MEAN CORPUSCULAR VOLUME (BEAKER) (test geyt=525) 90.5 fL 79.4-94.8 MEAN CORPUSCULAR HEMOGLOBIN (BEAKER) (test 30.3 pg 25.6-32.2 npno=254) MEAN CORPUSCULAR HEMOGLOBIN CONC (BEAKER) (test 33.5 GM/DL 32.2-35.5 skkd=882) RED CELL DISTRIBUTION WIDTH (BEAKER) (test 14.1 % 11.7-14.4 guho=653) PLATELET COUNT (BEAKER) (test alwx=535) 26 K/CU MM 150-450 MEAN PLATELET VOLUME (BEAKER) (test qjnj=400) 10.9 fL 9.4-12.3 NUCLEATED RED BLOOD CELLS (BEAKER) (test 0 /100 WBC 0-0 kckq=906) (CELLAVISION MANUAL DIFF)2018-09-04 12:35:00 Test Item Value Reference Range Comments NEUTROPHILS - REL (CELLAVISION)(BEAKER) (test 4 % knii=6474) LYMPHOCYTES - REL (CELLAVISION)(BEAKER) (test 94 % pcon=6744) BANDS - REL (CELLAVISION)(BEAKER) (test 2 % 0-10 hcht=3944) NEUTROPHILS - ABS (CELLAVISION)(BEAKER) (test 0.06 K/ul 1.56-6.13 koja=6713) LYMPHOCYTES - ABS (CELLAVISION)(BEAKER) (test 1.41 K/ul 1.18-3.74 lqae=7750) BANDS - ABS (CELLAVISION)(BEAKER) (test 0.03 K/uL 0.00-0.80 dcew=7697) TOTAL COUNTED (BEAKER) (test uvnc=5231) 100 WBC MORPHOLOGY (BEAKER) (test csbw=896) Normal PLT MORPHOLOGY (BEAKER) (test irha=087) Normal ANISOCYTOSIS (BEAKER) (test szuu=872) 2+ moderate MICROCYTES (BEAKER) (test laqw=999) 2+ moderate ARTIFACT (CELLAVISION)(BEAKER) (test dcot=1803) Present PLATELET CONCENTRATION (CELLAVISION)(BEAKER) Decreased (test jwhr=7083) Received comment: User comments: Slide comments:[id number] 12:13:00 Test Item Value Reference Range Comments HAPTOGLOBIN (BEAKER) (test nscp=801) 210 mg/dL 14-258 IRON, TIBC, % SAT. (WITHOUT FERRITIN)2018-09-04 12:13:00 Test Item Value Reference Range Comments IRON (BEAKER) (test lqvy=918) 204 ug/dL 40-160 TOTAL IRON BINDING CAPACITY (BEAKER) (test 205 ug/dL 250-450 zydc=966) IRON % SATURATION (2) (BEAKER) (test rphw=8420) 100 % 20-55 LACTATE DEHYDROGENASE (LDH)2018-09-04 11:31:00 Test Item Value Reference Range Comments LACTATE DEHYDROGENASE (BEAKER) (test sjwz=430) 175 U/L 125-220 RETICULOCYTE [id number] 11:13:00 Test Item Value Reference Range Comments RETICULOCYTE COUNT PCT (BEAKER) (test xjbz=895) 0.3 % 0.5-1.7 VITAMIN B12 AND [id number] 07:32:00 Test Item Value Reference Range Comments VITAMIN B12 (BEAKER) (test pnli=259) 196 pg/mL 213-816 FOLATE (BEAKER) (test xice=697) 13.9 ng/mL >=7.0 URINALYSIS W/ [id number] 07:28:00 Test Item Value Reference Range Comments COLOR (BEAKER) (test rgkl=285) Light Yellow CLARITY (BEAKER) (test kxqy=681) Clear SPECIFIC GRAVITY UA (BEAKER) (test edwu=106) 1.007 1.001-1.035 PH UA (BEAKER) (test zvan=244) 7.5 5.0-8.0 PROTEIN UA (BEAKER) (test dwru=452) Negative Negative GLUCOSE UA (BEAKER) (test ykjl=289) Negative Negative KETONES UA (BEAKER) (test whyv=055) Negative Negative BILIRUBIN UA (BEAKER) (test pwxm=639) Negative Negative BLOOD UA (BEAKER) (test mtjq=099) Negative Negative NITRITE UA (BEAKER) (test ocre=495) Negative Negative LEUKOCYTE ESTERASE UA (BEAKER) (test trjw=975) Negative Negative UROBILINOGEN UA (BEAKER) (test txqi=953) 0.2 mg/dL 0.2-1.0 RBC UA (BEAKER) (test dazm=246) < /HPF WBC UA (BEAKER) (test smsr=576) 0 /HPF BACTERIA (BEAKER) (test nkby=406) Occasional SQUAMOUS EPITHELIAL (BEAKER) (test oolk=508) 1 /HPF SOURCE(BEAKER) (test balz=1429) RAD, CHEST, 1 VIEW, NON [id number] 07:26:00Reason for exam:->coughShould this be performed at the bedside?->YesFINAL REPORT RAD , CHEST, 1 VIEW, NON DEPT INDICATION: cough COMPARISON: Priorday's exam FINDINGS : Portable frontal view of the chest. IMPRESSION: Support Lines: None. Lungs and pleura: Poorly defined left retrocardiac opacity may reflect developing pneumonia. There is no effusion or pneumothorax.Heart and mediastinum: Cardiac size is within normal limits. Mediastinal contours are unremarkable. Aortic caliber is normal.Additional findings: None. Signed: JR Hunt Robert MDReport Verified Date/Time: 09/04/2018 07:26:23 Reading Location: [facility] Reading Room PERIPHERAL BLOOD SMEAR - HOLD [id number] 06:37:00 Test Item Value Reference Range Comments PERIPHERAL SMEAR SAVE (BEAKER) (test yxdq=2177) saved HEPATITIS C [id number] 06:24:00 Test Item Value Reference Range Comments HEPATITIS C ANTIBODY (BEAKER) (test bqnb=821) Nonreactive Nonreactive TSH/FREE T4 IF [id number] 06:24:00 Test Item Value Reference Range Comments THYROID STIMULATING HORMONE (BEAKER) (test 4.42 uIU/mL 0.35-4.94 wqwf=201) HIV-1 ANTIGEN WITH HIV-1/2 [id number] 06:24:00 Test Item Value Reference Range Comments HIV-1 ANTIGEN WITH HIV 1\T\2 ANTIBODY (2) Nonreactive Nonreactive (ROBERT) (test qhqs=1640)
--- OUTSIDE RECORDS SUMMARY | 2018-09-13 07:47 | XMS REPORT | Clinical Summary ---
:1950 Author Organization [facility] Address [address] [place] [address] Care Team Providers Name Role Phone Unavailable Primary Care Provider Unavailable Allergies Active Allergy Reactions Severity Noted Date Comments Ceftriaxone Hives High 09/04/2018 Penicillins Hives High 09/04/2018 Prednisone Shortness Of Breath High 09/04/2018 Medications Medication Sig Dispensed Refills Start Date End Date Status traMADol (ULTRAM) 50 mg Take 50 mg by 0 Active tablet mouth every 6 (six) hours as needed for Pain. docusate sodium (COLACE) Take 100 mg by 0 Active 100 MG capsule mouth 2 (two) times daily. pantoprazole (PROTONIX) Take 40 mg by 0 Active 40 MG tablet mouth daily. cholecalciferol (VITAMIN Take 1,000 0 Active D3) 1,000 unit tablet Units by mouth daily. Lactobacillus Take 1 tablet 0 Active acidoph-L.bulgar by mouth daily. (FLORANEX) 1 million cell Tab per tablet ondansetron (ZOFRAN) 4 MG Take 4 mg by 0 Active tablet mouth every 6 (six) hours as needed for Nausea. 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 Never 09/04/2018 How many drinks containing alcohol do you have on a typical Not asked day when you are drinking? How often do you have six or more drinks on one occasion? Not asked Sex Assigned at Date Recorded Not on file Job Start Date Occupation Industry Not on file Not on file Not on file Travel History Travel Start Travel End No recent travel history available. Last Filed Vital Signs Vital Sign Reading Time Taken Blood Pressure 118/61 09/06/2018 5:04 PM PRINTER TECHNICIAN Pulse 72 09/06/2018 5:04 PM PRINTER TECHNICIAN Temperature 37.1 C (98.8 F) 09/06/2018 5:04 PM PRINTER TECHNICIAN Respiratory Rate 20 09/06/2018 5:04 PM PRINTER TECHNICIAN Oxygen Saturation 96% 09/06/2018 5:04 PM PRINTER TECHNICIAN Inhaled Oxygen Concentration - - Weight 89.4 kg (197 lb 1.6 oz) 09/04/2018 1:31 AM PRINTER TECHNICIAN Height 160 cm (5' 3") 09/04/2018 1:31 AM PRINTER TECHNICIAN Body Mass Index 34.91 09/04/2018 1:31 AM PRINTER TECHNICIAN Plan of Treatment Not on file Procedures Procedure Name Priority Date/Time Associated Comments Diagnosis TRANSFUSION SERVICE 09/08/2018 6:01 REPORT - SCAN PM PRINTER TECHNICIAN PREPARE LEUKO-REDUCED Routine 09/07/2018 11:55 Results for this PLATELETS PM PRINTER TECHNICIAN procedure are in the results section. TRANSFUSION SERVICE 09/07/2018 6:01 REPORT - SCAN PM PRINTER TECHNICIAN REPORT OF PROCEDURE - 09/07/2018 1:30 ENDOSCOPY SCAN PM PRINTER TECHNICIAN PREPARE LEUKO-REDUCED Routine 09/06/2018 11:54 Results for this AND IRRADIATED RBC PM PRINTER TECHNICIAN procedure are in the results section. TRANSFUSE Routine 09/06/2018 5:08 LEUKO-REDUCED PM PRINTER TECHNICIAN PLATELETS (CELLAVISION MANUAL Routine 09/06/2018 5:47 Results for this DIFF) AM PRINTER TECHNICIAN procedure are in the results section. CBC W/PLT COUNT & AUTO Routine 09/06/2018 5:47 Results for this DIFFERENTIAL AM PRINTER TECHNICIAN procedure are in the results section. CBC W/PLT COUNT & AUTO Routine 09/06/2018 5:47 Results for this DIFFERENTIAL AM PRINTER TECHNICIAN procedure are in the results section. PERIPHERAL BLOOD SMEAR Routine 09/06/2018 5:47 Results for this - HOLD ONLY AM PRINTER TECHNICIAN procedure are in the results section. MAGNESIUM Routine 09/06/2018 5:47 Results for this AM PRINTER TECHNICIAN procedure are in the results section. PT/APTT Routine 09/06/2018 5:47 Results for this AM PRINTER TECHNICIAN procedure are in the results section. HEPATIC FUNCTION PANEL Routine 09/06/2018 5:47 Results for this AM PRINTER TECHNICIAN procedure are in the results section. BASIC METABOLIC PANEL Routine 09/06/2018 5:47 Results for this (7) AM PRINTER TECHNICIAN procedure are in the results section. TRANSFUSION SERVICE 09/05/2018 6:01 REPORT - SCAN PM PRINTER TECHNICIAN (CELLAVISION MANUAL Routine 09/05/2018 4:39 Results for this DIFF) PM PRINTER TECHNICIAN procedure are in the results section. CBC W/PLT COUNT & AUTO Routine 09/05/2018 4:39 Results for this DIFFERENTIAL PM PRINTER TECHNICIAN procedure are in the results section. CBC W/PLT COUNT & AUTO Routine 09/05/2018 4:39 Results for this DIFFERENTIAL PM PRINTER TECHNICIAN procedure are in the results section. PERIPHERAL BLOOD SMEAR Routine 09/05/2018 6:53 Results for this - HOLD ONLY AM PRINTER TECHNICIAN procedure are in the results section. MAGNESIUM Routine 09/05/2018 6:53 Results for this AM PRINTER TECHNICIAN procedure are in the results section. PT/APTT Routine 09/05/2018 6:53 Results for this AM PRINTER TECHNICIAN procedure are in the results section. HEPATIC FUNCTION PANEL Routine 09/05/2018 6:53 Results for this AM PRINTER TECHNICIAN procedure are in the results section. BASIC METABOLIC PANEL Routine 09/05/2018 6:53 Results for this (7) AM PRINTER TECHNICIAN procedure are in the results section. TRANSFUSE Routine 09/05/2018 4:55 LEUKO-REDUCED AND AM PRINTER TECHNICIAN IRRADIATED RED BLOOD CELLS TYPE AND SCREEN, Routine 09/04/2018 7:03 Results for this AUTOMATED PM PRINTER TECHNICIAN procedure are in the results section. BLOOD TYPING, Routine 09/04/2018 10:37 Results for this AUTOMATED AM PRINTER TECHNICIAN procedure are in the results section. DIRECT AHG Routine 09/04/2018 10:37 Results for this (DEMAR)/DIRECT GREG AM PRINTER TECHNICIAN procedure are in the results section. IRON, TIBC, % SAT. Routine 09/04/2018 10:37 Results for this (WITHOUT FERRITIN) AM PRINTER TECHNICIAN procedure are in the results section. FERRITIN Routine 09/04/2018 10:37 Results for this AM PRINTER TECHNICIAN procedure are in the results section. RETICULOCYTE COUNT Routine 09/04/2018 10:37 Results for this AM PRINTER TECHNICIAN procedure are in the results section. LACTATE DEHYDROGENASE Routine 09/04/2018 10:37 Results for this (LDH) AM PRINTER TECHNICIAN procedure are in the results section. HAPTOGLOBIN Routine 09/04/2018 10:37 Results for this AM PRINTER TECHNICIAN procedure are in the results section. XR CHEST 1 VIEW Routine 09/04/2018 6:53 Results for this PORTABLE/BEDSIDE AM PRINTER TECHNICIAN procedure are in the results section. URINALYSIS W/ Routine 09/04/2018 5:33 Results for this MICROSCOPIC AM PRINTER TECHNICIAN procedure are in the results section. (CELLAVISION MANUAL Routine 09/04/2018 5:16 Results for this DIFF) AM PRINTER TECHNICIAN procedure are in the results section. CBC W/PLT COUNT & AUTO Routine 09/04/2018 5:16 Results for this DIFFERENTIAL AM PRINTER TECHNICIAN procedure are in the results section. HIV-1 ANTIGEN WITH Routine 09/04/2018 5:16 Results for this HIV-1/2 ANTIBODY AM PRINTER TECHNICIAN procedure are in the results section. HEPATITIS C ANTIBODY Routine 09/04/2018 5:16 Results for this AM PRINTER TECHNICIAN procedure are in the results section. VITAMIN B12 AND FOLATE Routine 09/04/2018 5:16 Results for this AM PRINTER TECHNICIAN procedure are in the results section. TSH/FREE T4 IF Routine 09/04/2018 5:16 Results for this INDICATED AM PRINTER TECHNICIAN procedure are in the results section. PERIPHERAL BLOOD SMEAR Routine 09/04/2018 5:16 Results for this - HOLD ONLY AM PRINTER TECHNICIAN procedure are in the results section. CBC W/PLT COUNT & AUTO Routine 09/04/2018 5:16 Results for this DIFFERENTIAL AM PRINTER TECHNICIAN procedure are in the results section. after 09/12/2017 Results TRANSFUSION SERVICE REPORT - SCAN (09/08/2018 6:01 PM PRINTER TECHNICIAN)Only the most recent of3 resultswithin the time period is included. Narrative Performed At Prepare Leuko-Red PLT (09/07/2018 11:55 PM PRINTER TECHNICIAN) Unit ABO A Pos [place] UNIT NUMBER [id number] [place] Status TRANSFUSED [place] Blood Bank Product PLATELETS [place] PRODUCT CODE [id number] [place] Specimen Blood Performing Organization Address City/State/Zipcode Phone Number [place] EKG-SCANNED (09/07/2018 1:30 PM PRINTER TECHNICIAN) Narrative Performed At Prepare Leuko-Red & Irrad RBC (09/06/2018 11:54 PM PRINTER TECHNICIAN) CROSSMATCH COMPATIBLE [place] Unit ABO A Pos [place] UNIT NUMBER [id number] [place] Status TRANSFUSED [place] Blood Bank Product RED BLOOD CELLS [place] PRODUCT CODE [id number] [place] Specimen Other Performing Organization Address City/[facility]/Zipcode Phone Number [place] Transfuse Leuko-Red PLT (09/06/2018 5:08 PM PRINTER TECHNICIAN)Only the most recent of2 resultswithin the time period is included.Manual Differential (09/06/2018 5:47 AM PRINTER TECHNICIAN)Only the most recent of3 resultswithin the time period is included. % Neutros 2 % [facility] % Lymphs 97 % [facility] % Monos 1 % [facility] # Neutros 0.06 (L) 1.56 - 6.13 K/ul [facility] # Lymphs 3.10 1.18 - 3.74 K/ul [facility] # Monos 0.03 (L) 0.24 - 0.36 K/uL [facility] Total Counted 100 [facility] WBC Morphology Normal [facility] Platelet Morphology Normal [facility] Anisocytosis 2+ moderate [facility] Microcytes 2+ moderate [facility] Artifact Present [facility] Platelet Conc Decreased [facility] Specimen Blood Narrative Performed At Received comment: [facility] User comments: Slide comments: Performing Organization Address City/State/Zipcode Phone Number [facility] [address] [place] [address] CENTER PT/aPTT (09/06/2018 5:47 AM PRINTER TECHNICIAN)Only the most recent of2 resultswithin the time period is included. Protime 13.5 11.7 - 14.7 seconds [facility] INR 1.0 <=5.9 [facility] PTT 30.1 22.5 - 36.0 seconds [facility] Specimen Blood Narrative Performed At RECOMMENDED COUMADIN/WARFARIN INR THERAPY [facility] RANGES STANDARD DOSE: 2.0 - 3.0 Includes: PROPHYLAXIS for venous thrombosis, systemic embolization; TREATMENT for venous thrombosis and/or pulmonary embolus. HIGH RISK: Target INR is 2.5-3.5 for patients with mechanical heart valves. Performing Organization Address City/State/[facility] Phone Number [address] [address] CENTER Peripheral Blood Smear - Hold only (09/06/2018 5:47 AM PRINTER TECHNICIAN)Only the most recent of3 resultswithin the time period is included. Peripheral Smear Save saved [facility] Specimen Blood Performing Organization Address City/[facility] Phone Number [address] [address] [phone] [place] CBC with platelet count + automated diff (09/06/2018 5:47 AM PRINTER TECHNICIAN)Only the most recent of3 resultswithin the time period is included. WBC 3.2 (L) 3.5 - 10.5 K/L [facility] RBC 2.63 (L) 3.93 - 5.22 M/L [facility] Hemoglobin 8.0 (L) 11.2 - 15.7 GM/DL [facility] Hematocrit 22.7 (L) 34.1 - 44.9 % [facility] MCV 86.3 79.4 - 94.8 fL [facility] MCH 30.4 25.6 - 32.2 pg [facility] MCHC 35.2 32.2 - 35.5 GM/DL [facility] RDW 13.8 11.7 - 14.4 % [facility] Platelets 13 (L) 150 - 450 K/CU MM [facility] MPV 13.1 (H) 9.4 - 12.3 fL [facility] nRBC 0 0 - 0 /100 WBC [facility] Specimen Blood Performing Organization Address City/[facility]/Zipcode Phone Number [address] [address] [phone] [place] Magnesium (09/06/2018 5:47 AM PRINTER TECHNICIAN)Only the most recent of2 resultswithin the time period is included. Magnesium 2.0 1.6 - 2.6 mg/dL [facility] Specimen Blood Performing Organization Address [facility] Phone Number [address] [address] [place] Hepatic function panel (09/06/2018 5:47 AM PRINTER TECHNICIAN)Only the most recent of2 resultswithin the time period is included. Protein, Total 6.1 6.0 - 8.3 gm/dL [facility] Albumin 3.4 (L) 3.5 - 5.0 g/dL [facility] Total Bilirubin 0.5 0.2 - 1.2 mg/dL [facility] Bilirubin, Direct 0.2 0.1 - 0.5 mg/dL [facility] Alkaline Phosphatase 70 40 - 150 U/L [facility] AST 9 5 - 34 U/L [facility] ALT 7 6 - 55 U/L [facility] Specimen Blood Performing Organization Address City/[facility] Phone Number [address] [address] [phone] [place] Basic metabolic panel (09/06/2018 5:47 AM PRINTER TECHNICIAN)Only the most recent of2 resultswithin the time period is included. Sodium 139 136 - 145 meq/L [facility] Potassium 3.9 3.5 - 5.1 meq/L [facility] Chloride 110 (H) 98 - 107 meq/L [facility] CO2 20 (L) 22 - 29 meq/L [facility] BUN 13 7 - 21 mg/dL [facility] Creatinine 0.61 0.57 - 1.25 mg/dL [facility] Glucose 95 70 - 105 mg/dL [facility] Calcium 8.9 8.4 - 10.2 mg/dL [facility] EGFR 98Comment: ESTIMATED GFR IS mL/min/1.73 sq m [facility] NOT ACCURATE CREATININE [facility] CENTER CLEARANCE IN PREDICTING GLOMERULAR FILTRATION RATE. ESTIMATED GFR IS NOT APPLICABLE FOR DIALYSIS PATIENTS. Specimen Blood Performing Organization Address [facility] Cent[facility]ode Phone Number [address] [address] [phone] CENTER Transfuse Leuko-Red & Irrad RBC (09/05/2018 4:55 AM PRINTER TECHNICIAN)Only the most recent of2 resultswithin the time period is included.Type and screen, automated (09/04/2018 7:03 PM PRINTER TECHNICIAN) ABO/RH AUTOMATED (BEAKER) AB POSITIVE [facility] Ab Scrn NEGATIVE [facility] Specimen Blood Performing Organization Address [facility] Cent[facility] Phone Number [address] [address] Iron, TIBC, % sat. (without ferritin) (09/04/2018 10:37 AM PRINTER TECHNICIAN) Iron 204 (H) 40 - 160 ug/dL [facility] TIBC 205 (L) 250 - 450 ug/dL [facility] Iron % Saturation 100 (H) 20 - 55 % [facility] Specimen Blood Performing Organization Address [facility] Phone Number [address] [address] CENTER Blood typing, automated (09/04/2018 10:37 AM PRINTER TECHNICIAN) ABO/RH AUTOMATED (BEAKER) AB POSITIVE [facility] Specimen Blood Performing Organization Address [facility] Centercomi Phone Number [address] [address] [phone] Reticulocyte count (09/04/2018 10:37 AM PRINTER TECHNICIAN) % Retic 0.3 (L) 0.5 - 1.7 % [facility] Specimen Blood Performing Organization Address [facility] Phone Number [address] [address] CENTER Direct AHG (DEMAR)/Direct Greg (09/04/2018 10:37 AM PRINTER TECHNICIAN) Direct AHG-IGG NEGATIVE [facility] Direct AHG-C3B, C3D NEGATVIE [facility] Specimen Blood Performing Organization Address [facility] Number [address] [address] Lactate dehydrogenase (LDH) (09/04/2018 10:37 AM PRINTER TECHNICIAN) LDH 175 125 - 220 U/L [facility] Specimen Blood Performing Organization Address [facility] Phone Number [address] [address] CENTER Haptoglobin (09/04/2018 10:37 AM PRINTER TECHNICIAN) Haptoglobin 210 14 - 258 mg/dL [facility] Specimen Blood Performing Organization Address [facility] Phone Number [address] [address] [phone] CENTER Ferritin (09/04/2018 10:37 AM PRINTER TECHNICIAN) Ferritin 2,214 (H) 5 - 275 ng/mL [facility] Specimen Blood Performing Organization Address City/State/Zipcode Phone Number [facility] [address] [place] [address] CENTER XR chest 1 view portable / bedside (09/04/2018 6:53 AM PRINTER TECHNICIAN) Narrative Performed At FINAL REPORT [facility], CHEST, 1 VIEW, NON DEPT INDICATION: cough COMPARISON: Prior day's exam FINDINGS: Portable frontal view of the chest. IMPRESSION: Support Lines: None. Lungs and pleura: Poorly defined left retrocardiac opacity may reflect developing pneumonia. There is no effusion or pneumothorax. Heart and mediastinum: Cardiac size is within normal limits. Mediastinal contours are unremarkable. Aortic caliber is normal. Additional findings: None. Signed: JR Hunt Robert MD Report Verified Date/Time:09/04/2018 07:26:23 Reading Location: [facility] Radiology Reading Room Procedure Note Interface, External Ris In - 09/04/2018 7:32 AM PRINTER TECHNICIAN FINAL REPORT RAD, CHEST, 1 VIEW, NON DEPT INDICATION: cough COMPARISON: Prior day's exam FINDINGS: Portable frontal view of the chest. IMPRESSION: Support Lines: None. Lungs and pleura: Poorly defined left retrocardiac opacity may reflect developing pneumonia. There is no effusion or pneumothorax. Heart and mediastinum: Cardiac size is within normal limits. Mediastinal contours are unremarkable. Aortic caliber is normal. Additional findings: None. Signed: JR Hunt Robert MD Report Verified Date/Time: 09/04/2018 07:26:23 Reading Location: [facility] Radiology Reading Room Performing Organization Address City/State/Zipcode Phone Number GE RIS Urinalysis w/ Microscopic (09/04/2018 5:33 AM PRINTER TECHNICIAN) Color, UA Light Yellow [facility] Clarity, UA Clear [facility] Specific [place], UA 1.007 1.001 - 1.035 [facility] pH, UA 7.5 5.0 - 8.0 [facility] Protein, UA Negative Negative [facility] Glucose, UA Negative Negative [facility] Ketones, UA Negative Negative [facility] Bilirubin, UA Negative Negative [facility] Blood, UA Negative Negative [facility] Nitrite, UA Negative Negative [facility] Leukocytes, UA Negative Negative [facility] Urobilinogen, UA 0.2 0.2 - 1.0 mg/dL [facility] RBC, UA <1 /HPF [facility] WBC, UA 0 /HPF [facility] Bacteria, UA Occasional [facility] Squam Epithel, UA 1 /HPF [facility] Specimen Source [facility] Specimen Urine Performing Organization Address City/State/Zipcode Phone Number [facility] [address] [place] [id number] CENTER Vitamin B12 and Folate (09/04/2018 5:16 AM PRINTER TECHNICIAN) Vitamin B12 196 (L) 213 - 816 pg/mL [facility] Folate 13.9 >=7.0 ng/mL [facility] Specimen Blood Performing Organization Address City/State/Zipcode Phone Number [facility] [address] [place] [id number] CENTER TSH/Free T4 If Indicated (09/04/2018 5:16 AM PRINTER TECHNICIAN) TSH 4.42 0.35 - 4.94 uIU/mL [facility] Specimen Blood Performing Organization Address City/State/Zipcode Phone Number [facility] [address] [place] [address] [place] HIV-1 Antigen with HIV-1/2 Antibody (09/04/2018 5:16 AM PRINTER TECHNICIAN) HIV-1 Antigen with HIV 1&2 NON-REACTIVE Nonreactive [facility] Antibody [facility] Specimen Blood Performing Organization Address City/State/Zipcode Phone Number [address] [address] [phone] [place] Hepatitis C antibody (09/04/2018 5:16 AM PRINTER TECHNICIAN) Hepatitis C Ab NON-REACTIVE Nonreactive [facility] Specimen Blood Performing Organization Address City/[facility]/Zipcode Phone Number [place] [phone] [place], [place] [phone] CENTER after 09/12/2017 Insurance Payer Benefit Plan / Group Subscriber ID Type Phone Address [facility] xxxxxxxx Maps Contracted Advance Directives For more information, please contact:[address] [phone] Code Status Date Activated Date Inactivated Comments Full Code 09/04/2018 4:39 AM This code status was determined by: Patient
[2018-09-13] MEDS ORDERED: NA CHLORIDE 0.9% 250 ML ONE ×2 (15:00→15:51)
[2018-09-13] MEDS ORDERED: DIPHENHYDRAMINE 50 MG/ML VIAL ONE (17:56)
[2018-09-13 18:30] LABS: Absolute Lymphocytes (CBC) 5.9 K/uL (0.7-4.9); Absolute Neutrophil 0.2 K/uL (1.8-8.0); Basophils % 0.1 % (0-1.3); Eosinophils % 0.4 % (0-4.4); Hematocrit 19.5 % (36.0-45.0); Lymphocytes % 96.3 % (15.3-44.8); MCH 30.7 pg (27.0-35.0); MCV 85.8 fL (80-100); MPV 8.4 fL (7.6-11.3); Monocytes % 0.6 % (3.3-12.3); RBC Red Blood Cell Count 2.27 M/uL (3.86-4.86)
[2018-09-13 19:21] LABS: Blood Morphology Comment NOT SEEN (NOT SEEN); Platelet Estimate DECR; Smudge Cells MODERATE
[2018-09-13 19:40] VITALS: O2SAT 96
[2018-09-13] MEDS ORDERED: ONDANSETRON 4 MG/2 ML VIAL IV PRN (19:44)
[2018-09-13] MEDS ORDERED: ACETAMINOPHEN 500 MG TAB PO PRN (19:44)
[2018-09-13] MEDS ORDERED: MORPHINE 2 MG/ML SYR IV PRN (19:44)
[2018-09-13] MEDS ORDERED: DIPHENHYDRAMINE 50 MG/ML VIAL IV PRN (19:46)
[2018-09-13] MEDS: DIPHENHYDRAMINE 12.5MG/5ML LIQ PO SCH (20:44)
[2018-09-13 21:13] VITALS: BMI 34.0
[2018-09-14] MEDS: METHYLPREDNISOLONE 40 MG INJ IV SCH ×4 (00:33→12:00)
[2018-09-14 06:34] LABS: Absolute Lymphocytes (CBC) 9.6 K/uL (0.7-4.9); Absolute Neutrophil 0.2 K/uL (1.8-8.0); Basophils % 0.1 % (0-1.3); Eosinophils % 0.3 % (0-4.4); Hematocrit 22.7 % (36.0-45.0); Lymphocytes % 97.5 % (15.3-44.8); MCH 30.5 pg (27.0-35.0); MCV 86.2 fL (80-100); MPV 8.2 fL (7.6-11.3); Monocytes % 0.3 % (3.3-12.3); RBC Red Blood Cell Count 2.63 M/uL (3.86-4.86)
[2018-09-14 07:00] LABS: Albumin 3.5 g/dL (3.4-5.0); Bilirubin Total 0.3 mg/dL (0.2-1.0); Potassium 4.3 mmol/L (3.5-5.1)
--- NOTE | 2018-09-14 08:00 | P.HP ---
Certification for Inpatient Patient admitted to: Observation With expected LOS: <2 Midnights Patient will require the following post-hospital care: None Practitioner: I am a practitioner with admitting privileges, knowledge of patient current condition, hospital course, and medical plan of care. Services: Services provided to patient in accordance with Admission requirements found in Title 42 Section 412.3 of the Code of Federal Regulations Patient History Date of Service: 09/13/18 Reason for admission: Anemia History of Present Illness: Patient is a 68-year-old female with a history of CLL with status post thrombocytopenia and anemia. She was directly admitted to the hospital from same-day surgery. Patient was in same-day surgery roof seeding platelet transfusion. Patient's platelet count is up to 92,000. However her hemoglobin was 7.0. Will go ahead and monitor and repeat in the morning. She has an appointment with her oncologist tomorrow at 3:15 a.m.. Hopefully if her labs look good we can discharge her for follow-up. Allergies ceftriaxone [From Rocephin] Allergy (Verified 08/01/18 23:28) Hives Penicillins Allergy (Verified 08/01/18 23:28) Hives prednisone Adverse Reaction (Verified 08/01/18 23:28) Shortness of breath Home Medications: traMADol HCL [Ultram*] 50 mg PO Q6H PRN 06/27/18 Docusate [Colace Cap*] 100 mg PO DAILY #30 cap 07/13/18 Pantoprazole [Protonix Tab*] 40 mg PO BIDAC #60 tab 07/13/18 Cholecalciferol (Vitamin D3) [Vitamin D 1000 Iu Tab*] 1 pill PO DAILY 08/29/18 Lactobacillus Acidophilus [Probiotic] 1 pill PO DAILY 08/29/18 Ondansetron HCl [Zofran] 4 mg PO Q6H PRN 08/29/18 Psyllium [Metamucil (Hydrocil)*] 1 pkt PO DAILY packet 09/03/18 - Past Medical/Surgical History Has patient received pneumonia vaccine in the past: Yes Diabetic: No -: Chronic Lymphocytic Leukemia -: 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 -: PE -: GERD -: 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 -: 08/2018 mouth sores -: cyst removed from left breast -: left ankle surgery -: Hysterectomy 2017 -: Abdominal hernia repair with mesh placement - Family History Mother Medical History: Heart disease, Other (see notes) Notes: [place], [place] Father Medical History: Cancer Notes: Pancreatic [place] - Social History Smoking Status: Never smoker Alcohol use: No CD- Drugs: No Caffeine use: Yes Place of Residence: Home Review of Systems 10-point ROS is otherwise unremarkable Physical Examination - Vital Signs Temperature: 97.9 F Blood Pressure: 122/63 Pulse: 74 Respirations: 20 Pulse Ox (%): 97 - Physical Exam General: Alert, In no apparent distress, Oriented x3 HEENT: Atraumatic, PERRLA, Mucous membr. moist/pink, EOMI, Sclerae nonicteric Neck: Supple, 2+ carotid pulse no bruit, No LAD, Without JVD or thyroid abnormality Respiratory: Clear to auscultation bilaterally, Normal air movement Cardiovascular: Regular rate/rhythm, Normal S1 S2, No murmurs Gastrointestinal: Normal bowel sounds, Soft and benign, Non-distended, No tenderness Musculoskeletal: No clubbing, No swelling, No tenderness Integumentary: Other (Bruising) Neurological: Normal gait, Normal speech, Normal strength at 5/5 x4 extr, Normal tone, Sensation intact, Cranial nerves 3-12 intact, Normal affect Lymphatics: No axilla or inguinal lymphadenopathy - Studies Laboratory Data (last 24 hrs) 09/14/18 06:00: Sodium 140, Potassium 4.3, BUN 12, Creatinine 0.70, Glucose 174 H, Total Bilirubin 0.3, AST 14 L, ALT 21, Alkaline Phosphatase 85 09/14/18 06:00: WBC 9.9 D, Hgb 8.0 L, Hct 22.7 L D, Plt Count 79 L 09/13/18 17:45: WBC 6.1 D, Hgb 7.0 L*, Hct 19.5 L* D, Plt Count 92 L D Assessment & Plan - Problems (Diagnosis) (1) Anemia Onset Date: 03/22/18 Current Visit: No Status: Acute Qualifiers: (2) Pneumonia Onset Date: 03/26/18 Current Visit: No Status: Acute Qualifiers: (3) Shortness of breath Current Visit: No Status: Acute (4) CLL (chronic lymphocytic leukemia) Onset Date: 01/23/18 Current Visit: No Status: Chronic - Plan Plan: 1. Continue with IV hydration and PPI twice daily 2. Monitor hemodynamics and CBC 3. Continue with pain control 4. NPO 5. Recheck H&H in the morning get if it is stable thin planned a discharge her so she can follow with her oncologist 6. GI and DVT prophylaxis - Advance Directives Does patient have a Living Will: No Does patient have a Durable POA for Healthcare: No - Code Status/Comfort Care Code Status Assessed: Yes Code Status: Full Code Critical Care: No Time Spent Managing PTS Care (In Minutes): 45
[2018-09-14] MEDS: DIPHENHYDRAMINE 12.5MG/5ML LIQ PO SCH (10:41)
[2018-09-14] MEDS ORDERED: DOCUSATE NA 100 MG CAP PO ONE (11:19)
[2018-09-14 12:34] VITALS: BP 140/71; TEMP 98.6
--- NOTE | 2018-09-14 15:42 | P.SSS ---
Patient History Date of Service: 09/14/18 Reason for admission: Anemia History of Present Illness: Patient is a 68-year-old female with a history of CLL with status post thrombocytopenia and anemia. She was directly admitted to the hospital from same-day surgery. Patient was in same-day surgery roof seeding platelet transfusion. Patient's platelet count is up to 92,000. However her hemoglobin was 7.0. Will go ahead and monitor and repeat in the morning. She has an appointment with her oncologist tomorrow at 3:15 a.m.. Hopefully if her labs look good we can discharge her for follow-up Allergies ceftriaxone [From Rocephin] Allergy (Verified 08/01/18 23:28) Hives Penicillins Allergy (Verified 08/01/18 23:28) Hives prednisone Adverse Reaction (Verified 08/01/18 23:28) Shortness of breath Home Medications: traMADol HCL [Ultram*] 50 mg PO Q6H PRN 06/27/18 Docusate [Colace Cap*] 100 mg PO DAILY #30 cap 07/13/18 Pantoprazole [Protonix Tab*] 40 mg PO BIDAC #60 tab 07/13/18 Cholecalciferol (Vitamin D3) [Vitamin D 1000 Iu Tab*] 1 pill PO DAILY 08/29/18 Lactobacillus Acidophilus [Probiotic] 1 pill PO DAILY 08/29/18 Ondansetron HCl [Zofran] 4 mg PO Q6H PRN 08/29/18 Psyllium [Metamucil (Hydrocil)*] 1 pkt PO DAILY packet 09/03/18 - Past Medical/Surgical History Has patient received pneumonia vaccine in the past: Yes Diabetic: No -: Chronic Lymphocytic Leukemia -: 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 -: PE -: GERD -: 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 -: 08/2018 mouth sores -: cyst removed from left breast -: left ankle surgery -: Hysterectomy 2018 -: Abdominal hernia repair with mesh placement - Family History Mother -: Heart disease, Other (see notes) Notes: [place], [place] Father -: Cancer Notes: Pancreatic [place] - Social History Smoking Status: Never smoker Alcohol use: No CD- Drugs: No Caffeine use: Yes Place of Residence: Home Review of Systems 10-point ROS is otherwise unremarkable Physical Examination - Vital Signs Temperature: 98.6 F Blood Pressure: 140/71 Pulse: 92 Respirations: 18 Pulse Ox (%): 95 - Physical Exam General: Alert, In no apparent distress HEENT: Atraumatic, PERRLA, Mucous membr. moist/pink, EOMI, Sclerae nonicteric Neck: Supple, 2+ carotid pulse no bruit, No LAD, Without JVD or thyroid abnormality Respiratory: Clear to auscultation bilaterally, Normal air movement Cardiovascular: Regular rate/rhythm, Normal S1 S2 Gastrointestinal: Normal bowel sounds, No tenderness Musculoskeletal: No tenderness Integumentary: No rashes Neurological: Normal gait, Normal speech, Normal strength at 5/5 x4 extr, Normal tone, Normal affect Lymphatics: No axilla or inguinal lymphadenopathy - Studies Laboratory Data (last 24 hrs) 09/14/18 06:00: Sodium 140, Potassium 4.3, BUN 12, Creatinine 0.70, Glucose 174 H, Total Bilirubin 0.3, AST 14 L, ALT 21, Alkaline Phosphatase 85 09/14/18 06:00: WBC 9.9 D, Hgb 8.0 L, Hct 22.7 L D, Plt Count 79 L 09/13/18 17:45: WBC 6.1 D, Hgb 7.0 L*, Hct 19.5 L* D, Plt Count 92 L D Treatment Summary: Overall during the hospital stay patient main stable Patient was initially admitted to the hospital from same-day surgery after she was receiving 2 units of platelets and her hemoglobin was found to be 7. Patient was monitored here for 24-48 hr are hemoglobin went up to 8. Patient then was discharged home under stable condition without requiring any blood transfusion. Patient was asked to continue following with her primary care provider in oncology for her CLL. Patient has been here in the hospital several times for similar complaints in the past. Patient during the last hospital visit was admitted and [facility] higher level of care for oncology and transfusion. Patient is usually non compliant with her medication for chemo and appointments with oncology as well. Patient was educated extensively again on her disease process and asked to ensure that she keeps her followup appointment with her oncology along with her primary care doctor. Patient demonstrated understanding and thus was discharged home under stable condition - Disposition Disposition: ROUTINE DISCHARGE Condition: GOOD Patient Discharge Instructions: OK TO DC IV AND DC HOME if okay with Dr. Stratton. FOLLOW-UP WITH PRIMARY CARE PROVIDER IN 1-2 WEEKS. FOLLOW-UP WITH Oncology this evening. RETURN TO THE ER IF symptoms worsen. CALL or TEXT DR. WIGGINS AT [phone] IF ANY QUESTIONS REGARDING HOSPITAL STAY. PLEASE CALL THE FLOOR AT [phone] IF ANY MEDICATION OR NURSING QUESTIONS. Diet: Regular Activity: Fall precautions
[2018-09-15] MEDS ORDERED: PSYLLIUM 1 PKT PO ONE (11:19)
== END 2018-09-14 12:56 | disposition home or self-care (01) ==
LOC: DS 07:43 → 4TH 19:15
PROVIDERS: ADMIT Hospitalist; ATTEND Hospitalist
DX: D64.9 Anemia, unspecified (principal); D69.6 Thrombocytopenia, unspecified; C91.10 Chronic lymphocytic leukemia of B-cell type not having achieved remission; Z88.0 Allergy status to penicillin; K21.9 Gastro-esophageal reflux disease without esophagitis
CPT/HCPCS: 36415; 36430; 80053; 85025 ×2; 86850 ×2; 86900 ×2; 86901 ×2; J2920 ×3; P9037 ×2

== ENCOUNTER 2018-09-19 07:30 | Observation (INO) | payer OTHER ==
--- OUTSIDE RECORDS SUMMARY | 2018-09-19 07:33 | XMS REPORT ---
:1950 [facility] Address [address] [place] [address] Dr. Bond [address] [place] [id number] Care Team Providers Name Role Phone JONATHANJennifer [...] Comments WHITE BLOOD CELL COUNT (BEAKER) (test ohcx=256) 3.2 K/ L 3.5-10.5 RED BLOOD CELL COUNT (BEAKER) (test jxyc=971) 2.63 M/ L 3.93-5.22 HEMOGLOBIN (BEAKER) (test jsiu=227) 8.0 GM/DL 11.2-15.7 HEMATOCRIT (BEAKER) (test zdjn=885) 22.7 % 34.1-44.9 MEAN CORPUSCULAR VOLUME (BEAKER) (test rfwq=069) 86.3 fL 79.4-94.8 MEAN CORPUSCULAR HEMOGLOBIN (BEAKER) (test lshd=514) 30.4 pg 25.6-32.2 MEAN CORPUSCULAR HEMOGLOBIN CONC (BEAKER) (test gwmt=255) 35.2 GM/DL 32.2- 35.5 RED CELL DISTRIBUTION WIDTH (BEAKER) (test gddi=978) 13.8 % 11.7-14.4 PLATELET COUNT (BEAKER) (test rrqy=400) 13 K/CU MM 150-450 MEAN PLATELET VOLUME (BEAKER) (test lxin=045) 13.1 fL 9.4-12.3 NUCLEATED RED BLOOD CELLS (BEAKER) (test nuuf=778) 0 /100 WBC 0-0 (CELLAVISION MANUAL DIFF)2018-09-06 13:41:00 Test Item Value Reference Range Comments NEUTROPHILS - REL (CELLAVISION)(BEAKER) (test 2 % yisw=4782) LYMPHOCYTES - REL (CELLAVISION)(BEAKER) (test 97 % rxvq=3265) MONOCYTES - REL (CELLAVISION)(BEAKER) (test 1 % hawp=4776) NEUTROPHILS - ABS (CELLAVISION)(BEAKER) (test 0.06 K/ul 1.56-6.13 bdcw=2050) LYMPHOCYTES - ABS (CELLAVISION)(BEAKER) (test 3.10 K/ul 1.18-3.74 pqmz=1082) MONOCYTES - ABS (CELLAVISION)(BEAKER) (test 0.03 K/uL 0.24-0.36 ecvy=8235) TOTAL COUNTED (BEAKER) (test lhrg=0875) 100 WBC MORPHOLOGY (BEAKER) (test yyqm=257) Normal PLT MORPHOLOGY (BEAKER) (test cglm=263) Normal ANISOCYTOSIS (BEAKER) (test tphs=894) 2+ moderate MICROCYTES (BEAKER) (test nzjq=679) 2+ moderate ARTIFACT (CELLAVISION)(BEAKER) (test wzwr=7050) Present PLATELET CONCENTRATION (CELLAVISION)(BEAKER) Decreased (test mlgb=7655) Received comment: User comments: Slide comments:[id number] 07:54:00 Test Item Value Reference Range Comments MAGNESIUM (BEAKER) (test auqc=761) 2.0 mg/dL 1.6-2.6 BASIC METABOLIC [id number] 07:54:00 Test Item Value Reference Range Comments SODIUM (BEAKER) (test 139 meq/L 136-145 dhcn=842) POTASSIUM (BEAKER) (test 3.9 meq/L 3.5-5.1 yufn=582) CHLORIDE (BEAKER) (test 110 meq/L 98-107 suyc=852) CO2 (BEAKER) (test 20 meq/L 22-29 yltt=703) BLOOD UREA NITROGEN 13 mg/dL 7-21 (BEAKER) (test iish=385) CREATININE (BEAKER) (test 0.61 mg/dL 0.57-1.25 uman=982) GLUCOSE RANDOM (BEAKER) 95 mg/dL 70-105 (test gliq=248) CALCIUM (BEAKER) (test 8.9 mg/dL 8.4-10.2 yfhr=552) EGFR (BEAKER) (test 98 mL/min/1.73 sq m ESTIMATED GFR IS NOT vcim=4114) ACCURATE CREATININE CLEARANCE IN PREDICTING GLOMERULAR FILTRATION RATE. ESTIMATED GFR IS NOT APPLICABLE FOR DIALYSIS PATIENTS. HEPATIC FUNCTION [id number] 07:54:00 Test Item Value Reference Range Comments TOTAL PROTEIN (BEAKER) (test jtpn=566) 6.1 gm/dL 6.0-8.3 ALBUMIN (BEAKER) (test czjm=2585) 3.4 g/dL 3.5-5.0 BILIRUBIN TOTAL (BEAKER) (test lbvh=080) 0.5 mg/dL 0.2-1.2 BILIRUBIN DIRECT (BEAKER) (test ttsi=044) 0.2 mg/dL 0.1-0.5 ALKALINE PHOSPHATASE (BEAKER) (test lxwl=547) 70 U/L 40-150 AST (SGOT) (BEAKER) (test ezpb=360) 9 U/L 5-34 ALT (SGPT) (BEAKER) (test zdde=638) 7 U/L 6-55 PERIPHERAL BLOOD SMEAR - HOLD [id number] 07:11:00 Test Item Value Reference Range Comments PERIPHERAL SMEAR SAVE (BEAKER) (test fxkj=9314) saved [id number] 06:18:00 Test Item Value Reference Range Comments PROTIME (BEAKER) (test iitn=052) 13.5 seconds 11.7-14.7 INR (BEAKER) (test xfix=529) 1.0 <=5.9 PARTIAL THROMBOPLASTIN TIME (BEAKER) (test 30.1 seconds 22.5-36.0 yuwx=108) RECOMMENDED COUMADIN/WARFARIN INR THERAPY RANGESSTANDARD DOSE: 2.0 - 3.0 Includes: PROPHYLAXIS forvenous thrombosis, systemic embolization; TREATMENT for venous thrombosis and/or pulmonary embolus.HIGH RISK: Target INR is 2.5-3.5 for patients with mechanical heart valves.CBC W/PLT COUNT & AUTO [id number] 18:12:00 Test Item Value Reference Range Comments WHITE BLOOD CELL COUNT (BEAKER) (test lsts=774) 3.1 K/ L 3.5-10.5 RED BLOOD CELL COUNT (BEAKER) (test cewq=203) 2.88 M/ L 3.93-5.22 HEMOGLOBIN (BEAKER) (test hems=469) 8.6 GM/DL 11.2-15.7 HEMATOCRIT (BEAKER) (test vloe=554) 25.2 % 34.1-44.9 MEAN CORPUSCULAR VOLUME (BEAKER) (test rjcu=223) 87.5 fL 79.4-94.8 MEAN CORPUSCULAR HEMOGLOBIN (BEAKER) (test 29.9 pg 25.6-32.2 movy=540) MEAN CORPUSCULAR HEMOGLOBIN CONC (BEAKER) (test 34.1 GM/DL 32.2-35.5 jrgh=079) RED CELL DISTRIBUTION WIDTH (BEAKER) (test 13.8 % 11.7-14.4 roka=378) PLATELET COUNT (BEAKER) (test wdhu=939) 11 K/CU MM 150-450 MEAN PLATELET VOLUME (BEAKER) (test ktzz=549) 11.0 fL 9.4-12.3 NUCLEATED RED BLOOD CELLS (BEAKER) (test 0 /100 WBC 0-0 hxpe=117) (CELLAVISION MANUAL DIFF)2018-09-05 18:12:00 Test Item Value Reference Range Comments NEUTROPHILS - REL (CELLAVISION)(BEAKER) (test 4 % amhk=5904) LYMPHOCYTES - REL (CELLAVISION)(BEAKER) (test 90 % wafs=1540) MONOCYTES - REL (CELLAVISION)(BEAKER) (test 1 % jbps=9689) EOSINOPHILS - REL (CELLAVISION)(BEAKER) (test 3 % olfn=8099) BANDS - REL (CELLAVISION)(BEAKER) (test 1 % 0-10 hsrk=0764) ATYPICAL LYMPHOCYTES - REL (CELLAVISION)(BEAKER) 1 % 0-0 (test xhxn=5321) NEUTROPHILS - ABS (CELLAVISION)(BEAKER) (test 0.12 K/ul 1.56-6.13 mthv=7988) LYMPHOCYTES - ABS (CELLAVISION)(BEAKER) (test 2.79 K/ul 1.18-3.74 qfom=8248) MONOCYTES - ABS (CELLAVISION)(BEAKER) (test 0.03 K/uL 0.24-0.36 yjcu=5346) EOSINOPHILS - ABS (CELLAVISION)(BEAKER) (test 0.09 K/uL 0.04-0.36 mije=7930) BANDS - ABS (CELLAVISION)(BEAKER) (test 0.03 K/uL 0.00-0.80 lbfd=8010) ATYPICAL LYMPHOCYTES - ABS (CELLAVISION)(BEAKER) 0.03 K/uL 0.00-0.00 (test fbai=7169) TOTAL COUNTED (BEAKER) (test glft=2281) 100 MANUAL NRBC PER 100 CELLS (BEAKER) (test 3 /100 WBC 0-0 rxjc=7427) WBC MORPHOLOGY (BEAKER) (test naeh=296) Normal CLUMPED PLATELETS (BEAKER) (test awba=785) Present ANISOCYTOSIS (BEAKER) (test krni=623) 1+ few MICROCYTES (BEAKER) (test mwtz=665) 1+ few ARTIFACT (CELLAVISION)(BEAKER) (test doxm=7022) Present PLATELET CONCENTRATION (CELLAVISION)(BEAKER) Decreased (test ppvb=1017) Received comment: User comments: Slide comments:PERIPHERAL BLOOD SMEAR - HOLD [id number] 08:23:00 Test Item Value Reference Range Comments PERIPHERAL SMEAR SAVE (BEAKER) (test ngsr=6403) saved [id number] 07:37:00 Test Item Value Reference Range Comments MAGNESIUM (BEAKER) (test yiez=509) 2.1 mg/dL 1.6-2.6 BASIC METABOLIC [id number] 07:37:00 Test Item Value Reference Range Comments SODIUM (BEAKER) (test 139 meq/L 136-145 swhy=350) POTASSIUM (BEAKER) (test 3.9 meq/L 3.5-5.1 tiat=034) CHLORIDE (BEAKER) (test 107 meq/L 98-107 rrcl=427) CO2 (BEAKER) (test 23 meq/L 22-29 uypm=194) BLOOD UREA NITROGEN 14 mg/dL 7-21 (BEAKER) (test khmg=153) CREATININE (BEAKER) (test 0.70 mg/dL 0.57-1.25 zmcn=277) GLUCOSE RANDOM (BEAKER) 141 mg/dL 70-105 (test cknd=397) CALCIUM (BEAKER) (test 9.7 mg/dL 8.4-10.2 atlh=770) EGFR (BEAKER) (test 84 mL/min/1.73 sq m ESTIMATED GFR IS NOT knlk=9189) ACCURATE CREATININE CLEARANCE IN PREDICTING GLOMERULAR FILTRATION RATE. ESTIMATED GFR IS NOT APPLICABLE FOR DIALYSIS PATIENTS. HEPATIC FUNCTION [id number] 07:37:00 Test Item Value Reference Range Comments TOTAL PROTEIN (BEAKER) (test icmq=714) 7.0 gm/dL 6.0-8.3 ALBUMIN (BEAKER) (test ihsk=3449) 4.0 g/dL 3.5-5.0 BILIRUBIN TOTAL (BEAKER) (test bxtu=421) 0.6 mg/dL 0.2-1.2 BILIRUBIN DIRECT (BEAKER) (test yauy=871) 0.2 mg/dL 0.1-0.5 ALKALINE PHOSPHATASE (BEAKER) (test xnsh=492) 82 U/L 40-150 AST (SGOT) (BEAKER) (test sdhs=120) 11 U/L 5-34 ALT (SGPT) (BEAKER) (test bvmc=230) 11 U/L 6-55 [id number] 07:29:00 Test Item Value Reference Range Comments PROTIME (BEAKER) (test bked=581) 13.0 seconds 11.7-14.7 INR (BEAKER) (test ipsq=976) 1.0 <=5.9 PARTIAL THROMBOPLASTIN TIME (BEAKER) (test 29.4 seconds 22.5-36.0 emba=520) RECOMMENDED COUMADIN/WARFARIN INR THERAPY RANGESSTANDARD DOSE: 2.0 - 3.0 Includes: PROPHYLAXIS forvenous thrombosis, systemic embolization; TREATMENT for venous thrombosis and/or pulmonary embolus.HIGH RISK: Target INR is 2.5-3.5 for patients with mechanical heart valves.[id number] 14:28:00 Test Item Value Reference Range Comments FERRITIN (BEAKER) (test ebea=331) 2214 ng/mL 5-275 CBC W/PLT COUNT & AUTO [id number] 12:35:00 Test Item Value Reference Range Comments WHITE BLOOD CELL COUNT (BEAKER) (test pgyl=636) 1.5 K/ L 3.5-10.5 RED BLOOD CELL COUNT (BEAKER) (test zaii=467) 2.21 M/ L 3.93-5.22 HEMOGLOBIN (BEAKER) (test datl=498) 6.7 GM/DL 11.2-15.7 HEMATOCRIT (BEAKER) (test ysja=194) 20.0 % 34.1-44.9 MEAN CORPUSCULAR VOLUME (BEAKER) (test ojdv=187) 90.5 fL 79.4-94.8 MEAN CORPUSCULAR HEMOGLOBIN (BEAKER) (test 30.3 pg 25.6-32.2 gglz=072) MEAN CORPUSCULAR HEMOGLOBIN CONC (BEAKER) (test 33.5 GM/DL 32.2-35.5 tety=005) RED CELL DISTRIBUTION WIDTH (BEAKER) (test 14.1 % 11.7-14.4 kzuu=682) PLATELET COUNT (BEAKER) (test zcum=795) 26 K/CU MM 150-450 MEAN PLATELET VOLUME (BEAKER) (test asbr=321) 10.9 fL 9.4-12.3 NUCLEATED RED BLOOD CELLS (BEAKER) (test 0 /100 WBC 0-0 zvwk=294) (CELLAVISION MANUAL DIFF)2018-09-04 12:35:00 Test Item Value Reference Range Comments NEUTROPHILS - REL (CELLAVISION)(BEAKER) (test 4 % ndzj=3384) LYMPHOCYTES - REL (CELLAVISION)(BEAKER) (test 94 % vepo=3437) BANDS - REL (CELLAVISION)(BEAKER) (test 2 % 0-10 amrm=3035) NEUTROPHILS - ABS (CELLAVISION)(BEAKER) (test 0.06 K/ul 1.56-6.13 wran=0678) LYMPHOCYTES - ABS (CELLAVISION)(BEAKER) (test 1.41 K/ul 1.18-3.74 aktn=7006) BANDS - ABS (CELLAVISION)(BEAKER) (test 0.03 K/uL 0.00-0.80 pvwb=0087) TOTAL COUNTED (BEAKER) (test qvlr=9320) 100 WBC MORPHOLOGY (BEAKER) (test xjqz=286) Normal PLT MORPHOLOGY (BEAKER) (test laud=412) Normal ANISOCYTOSIS (BEAKER) (test kaph=535) 2+ moderate MICROCYTES (BEAKER) (test tzth=430) 2+ moderate ARTIFACT (CELLAVISION)(BEAKER) (test nnsg=3008) Present PLATELET CONCENTRATION (CELLAVISION)(BEAKER) Decreased (test gyci=1383) Received comment: User comments: Slide comments:[id number] 12:13:00 Test Item Value Reference Range Comments HAPTOGLOBIN (BEAKER) (test urcf=920) 210 mg/dL 14-258 IRON, TIBC, % SAT. (WITHOUT FERRITIN)2018-09-04 12:13:00 Test Item Value Reference Range Comments IRON (BEAKER) (test qxgo=881) 204 ug/dL 40-160 TOTAL IRON BINDING CAPACITY (BEAKER) (test 205 ug/dL 250-450 ptbh=426) IRON % SATURATION (2) (BEAKER) (test exyj=0678) 100 % 20-55 LACTATE DEHYDROGENASE (LDH)2018-09-04 11:31:00 Test Item Value Reference Range Comments LACTATE DEHYDROGENASE (BEAKER) (test hhdq=298) 175 U/L 125-220 RETICULOCYTE [id number] 11:13:00 Test Item Value Reference Range Comments RETICULOCYTE COUNT PCT (BEAKER) (test gyun=511) 0.3 % 0.5-1.7 VITAMIN B12 AND [id number] 07:32:00 Test Item Value Reference Range Comments VITAMIN B12 (BEAKER) (test cbsd=517) 196 pg/mL 213-816 FOLATE (BEAKER) (test lbtq=376) 13.9 ng/mL >=7.0 URINALYSIS W/ [id number] 07:28:00 Test Item Value Reference Range Comments COLOR (BEAKER) (test yyvs=708) Light Yellow CLARITY (BEAKER) (test hzsf=931) Clear SPECIFIC GRAVITY UA (BEAKER) (test lknd=614) 1.007 1.001-1.035 PH UA (BEAKER) (test tqkx=150) 7.5 5.0-8.0 PROTEIN UA (BEAKER) (test xjta=624) Negative Negative GLUCOSE UA (BEAKER) (test ggdw=579) Negative Negative KETONES UA (BEAKER) (test whhr=340) Negative Negative BILIRUBIN UA (BEAKER) (test ihjs=744) Negative Negative BLOOD UA (BEAKER) (test nqna=757) Negative Negative NITRITE UA (BEAKER) (test fmwe=707) Negative Negative LEUKOCYTE ESTERASE UA (BEAKER) (test jbkb=815) Negative Negative UROBILINOGEN UA (BEAKER) (test pkxu=012) 0.2 mg/dL 0.2-1.0 RBC UA (BEAKER) (test zrgj=265) < /HPF WBC UA (BEAKER) (test xahg=577) 0 /HPF BACTERIA (BEAKER) (test gpqq=639) Occasional SQUAMOUS EPITHELIAL (BEAKER) (test hhxm=864) 1 /HPF SOURCE(BEAKER) (test xxts=8853) RAD, CHEST, 1 VIEW, NON [id number] 07:26:00Reason for exam:->coughShould this be performed at [...] MDReport Verified Date/Time: 09/04/2018 07:26:23 Reading Location: [facility] Radiology Reading Room PERIPHERAL BLOOD SMEAR - HOLD [id number] 06:37:00 Test Item Value Reference Range Comments PERIPHERAL SMEAR SAVE (BEAKER) (test pmcj=6682) saved HEPATITIS C [id number] 06:24:00 Test Item Value Reference Range Comments HEPATITIS C ANTIBODY (BEAKER) (test arkx=218) Nonreactive Nonreactive TSH/FREE T4 IF [id number] 06:24:00 Test Item Value Reference Range Comments THYROID STIMULATING HORMONE (BEAKER) (test 4.42 uIU/mL 0.35-4.94 qymi=158) HIV-1 ANTIGEN WITH HIV-1/2 [id number] 06:24:00 Test Item Value Reference Range Comments HIV-1 ANTIGEN WITH HIV 1\T\2 ANTIBODY (2) Nonreactive Nonreactive (ROBERT) (test nmdz=2488)
--- OUTSIDE RECORDS SUMMARY | 2018-09-19 07:33 | XMS REPORT | Clinical Summary ---
:1950 Author Organization [facility] Address [address] [place] [address] Care Team Providers Name Role Phone Edith [...] Encounters Date Type Specialty Care Team Description 09/13/2018 Telephone Gynecologic Georgina Hanley Oncology MD Darrel 08/28/2018 Office Visit Gynecologic Georgina Hanley YANELI III (vulvar Oncology MD Darrel intraepithelial [...] Hughes MD Opara, Emmanuel C., MD after 09/18/2017 Family History Medical History Relation Name Comments [...] Taken Blood Pressure 163/87 08/28/2018 1:06 PM BRIM POUNCER MACHINE OPERATOR Pulse 84 08/28/2018 1:06 PM BRIM POUNCER MACHINE OPERATOR Temperature 36.8 C (98.2 F) 08/14/2018 11:28 AM BRIM POUNCER MACHINE OPERATOR Respiratory Rate 19 08/14/2018 11:28 AM BRIM POUNCER MACHINE OPERATOR Oxygen Saturation 98% 08/14/2018 11:28 AM BRIM POUNCER MACHINE OPERATOR Inhaled Oxygen Concentration - - Weight 87.1 kg (192 lb) 08/28/2018 1:06 PM BRIM POUNCER MACHINE OPERATOR Height 160 cm (5' 3") 08/28/2018 1:06 PM BRIM POUNCER MACHINE OPERATOR Body Mass Index 34.01 08/28/2018 1:06 PM BRIM POUNCER MACHINE OPERATOR Plan of Treatment Date Type Specialty Care Team Description 09/26/2018 Clinical Support Gynecologic Oncology 10/12/2018 Hospital Encounter Obstetrics and Talon, Georgina Gynecology MD Darrel [address] [place] [address] 10/12/2018 Surgery Obstetrics and Talon, Georgina WIDE EXCISION, VULVA Gynecology MD Darrel [address] [place] [address] Health Maintenance Due Date Last Done Comments BREAST CANCER SCREENING 02/25/2002 COLON CANCER SCREENING 02/25/2002 SHINGRIX VACCINE (1 of 2) 02/25/2002 ZOSTER VACCINE 2012 PNEUMOCOCCAL POLYSACCHARIDE VACCINE AGE 65 AND OVER 02/25/2017 PNEUMOCOCCAL-13 02/25/2017 INFLUENZA VACCINE 05/09/2018 Implants Implanted Type Area Greeting Card Maker Device Shelf Model / Identifier Expiration Serial / Date Lot Bone Plate Bone Left: Ankle Plate Bone Plate-01/21/2003 Bone Left: Ankle Implanted: 01/21/2003 (Quantity not on file) Plate Mesh-10/14/2005 Mesh Abdomen, Implanted: 10/14/2005 (Quantity not on file) Middle Quadrant/Non Specific Procedures Procedure Name Priority Date/Time Associated Comments Diagnosis MANUAL DIFFERENTIAL Routine 08/14/2018 5:58 Results for this AM BRIM POUNCER MACHINE OPERATOR procedure are in the results section. ESTIMATED GFR Routine 08/14/2018 5:58 Results for this AM BRIM POUNCER MACHINE OPERATOR procedure are in the results section. BASIC METABOLIC PANEL Routine 08/14/2018 5:58 Results for this AM BRIM POUNCER MACHINE OPERATOR procedure are in the results section. CBC WITH PLATELET AND Routine 08/14/2018 5:58 Results for this DIFFERENTIAL AM BRIM POUNCER MACHINE OPERATOR procedure are in the results section. MANUAL DIFFERENTIAL Routine 08/13/2018 8:35 Results for this PM BRIM POUNCER MACHINE OPERATOR procedure are in the results section. CBC WITH PLATELET AND Routine 08/13/2018 8:35 Results for this DIFFERENTIAL PM BRIM POUNCER MACHINE OPERATOR procedure are in the results section. TRANSFUSE PLATELETS STAT 08/13/2018 7:08 PM BRIM POUNCER MACHINE OPERATOR TRANSFUSE PLATELETS STAT 08/13/2018 5:31 PM BRIM POUNCER MACHINE OPERATOR TRANSFUSE RED BLOOD STAT 08/13/2018 2:53 CELLS PM BRIM POUNCER MACHINE OPERATOR TRANSFUSE RED BLOOD STAT 08/13/2018 10:25 CELLS AM BRIM POUNCER MACHINE OPERATOR TROPONIN Timed 08/13/2018 7:50 Results for this AM BRIM POUNCER MACHINE OPERATOR procedure are in the results section. URINALYSIS SCREEN AND STAT 08/13/2018 3:36 Results for this MICROSCOPY, WITH REFLEX AM BRIM POUNCER MACHINE OPERATOR procedure are in TO CULTURE the results section. URINE CULTURE STAT 08/13/2018 3:36 Results for this AM BRIM POUNCER MACHINE OPERATOR procedure are in the results section. MANUAL DIFFERENTIAL STAT 08/13/2018 3:31 Results for this AM BRIM POUNCER MACHINE OPERATOR procedure are in the results section. ESTIMATED GFR STAT 08/13/2018 3:31 Results for this AM BRIM POUNCER MACHINE OPERATOR procedure are in the results section. MAGNESIUM LEVEL STAT 08/13/2018 3:31 Results for this AM BRIM POUNCER MACHINE OPERATOR procedure are in the results section. RETICULOCYTE COUNT STAT 08/13/2018 3:31 Results for this AM BRIM POUNCER MACHINE OPERATOR procedure are in the results section. TROPONIN STAT 08/13/2018 3:31 Results for this AM BRIM POUNCER MACHINE OPERATOR procedure are in the results section. PARTIAL THROMBOPLASTIN STAT 08/13/2018 3:31 Results for this TIME (PTT) AM BRIM POUNCER MACHINE OPERATOR procedure are in the results section. PROTHROMBIN TIME WITH STAT 08/13/2018 3:31 Results for this INR AM BRIM POUNCER MACHINE OPERATOR procedure are in the results section. COMPREHENSIVE METABOLIC STAT 08/13/2018 3:31 Results for this PANEL AM BRIM POUNCER MACHINE OPERATOR procedure are in the results section. CBC WITH PLATELET AND STAT 08/13/2018 3:31 Results for this DIFFERENTIAL AM BRIM POUNCER MACHINE OPERATOR procedure are in the results section. ECG ED PRELIMINARY Routine 08/13/2018 3:17 Results for this INTERPRETATION AM BRIM POUNCER MACHINE OPERATOR procedure are in the results section. [place] CRITICAL CARE, E/M Routine 08/13/2018 3:17 Results for this 30-74 MINUTES AM BRIM POUNCER MACHINE OPERATOR procedure are in the results section. ECG 12-LEAD STAT 08/13/2018 2:49 AM BRIM POUNCER MACHINE OPERATOR PREPARE PLATELET STAT 08/13/2018 2:44 Results for this PHERESIS AM BRIM POUNCER MACHINE OPERATOR procedure are in the results section. PREPARE RBC STAT 08/13/2018 2:44 Results for this AM BRIM POUNCER MACHINE OPERATOR procedure are in the results section. TYPE AND SCREEN STAT 08/13/2018 2:44 Results for this AM BRIM POUNCER MACHINE OPERATOR procedure are in the results section. MISCELLANEOUS [...] procedure are in the results section. after 09/18/2017 Results Estimated GFR (08/14/2018 5:58 AM BRIM POUNCER MACHINE OPERATOR)Only the most recent of5 resultswithin the time period is included. Estimated GFR >=90 mL/min/1.73 m2 [facility] DEPARTMENT OF Comment: PATHOLOGY AND GENOMIC CatergoryUnitsInterpretation MEDICINE G1 >=90 Normal or high G2 60-89Mildly decreased [id number] to moderately decreased [id number] to severely decreased G4 15-29Severely decreased G5 <15Kidney failure The eGFR was calculated using the Chronic Kidney Disease Epidemiology Collaboration (CKD-EPI) equation. Interpretation is based on recommendations of the National Kidney Foundation-Kidney Disease Outcomes Quality Initiative (NKF-KDOQI) published in 2014. Specimen Plasma specimen Performing Organization Address City/State/Zipcode Phone Number [facility] DEPARTMENT OF PATHOLOGY [address] [place] [address] AND GENOMIC MEDICINE Manual differential (08/14/2018 5:58 AM BRIM POUNCER MACHINE OPERATOR)Only the most recent of7 resultswithin the time period is included. Manual differential PERFORMED [facility] DEPARTMENT OF PATHOLOGY AND GENOMIC MEDICINE Neutrophils 3.0 (L) 39.0 - 69.0 % [facility] DEPARTMENT OF PATHOLOGY AND GENOMIC MEDICINE Lymphocytes 97.0 (H) 25.0 - 45.0 % [facility] DEPARTMENT OF PATHOLOGY AND GENOMIC MEDICINE Monocytes 0.0 0.0 - 10.0 % [facility] DEPARTMENT OF PATHOLOGY AND GENOMIC MEDICINE Eosinophils 0.0 0.0 - 5.0 % [facility] DEPARTMENT OF PATHOLOGY AND GENOMIC MEDICINE Basophils 0.0 0.0 - 1.0 % [facility] DEPARTMENT OF PATHOLOGY AND GENOMIC MEDICINE Reactive lymphocytes Few [facility] DEPARTMENT OF PATHOLOGY AND GENOMIC MEDICINE Platelet slide review Mkd decreased (A) [facility] DEPARTMENT OF PATHOLOGY AND GENOMIC MEDICINE Anisocytosis Moderate [facility] DEPARTMENT OF PATHOLOGY AND GENOMIC MEDICINE Polychromasia Moderate [facility] DEPARTMENT OF PATHOLOGY AND GENOMIC MEDICINE Spherocytes Occasional [facility] DEPARTMENT OF PATHOLOGY AND GENOMIC MEDICINE Ovalocytes Moderate [facility] DEPARTMENT OF PATHOLOGY AND GENOMIC MEDICINE Smudge cells Few [facility] DEPARTMENT OF PATHOLOGY AND GENOMIC MEDICINE Performing Organization Address City/State/Zipcode Phone Number [facility] DEPARTMENT OF PATHOLOGY [address] [place] [address] AND [facility] CBC with platelet and differential (08/14/2018 5:58 AM BRIM POUNCER MACHINE OPERATOR)Only the most recent of7 resultswithin the time period is included. WBC 2.2 (L) 4.5 - 11.0 k/uL [facility] DEPARTMENT OF PATHOLOGY AND GENOMIC MEDICINE RBC 3.17 (L) 4.20 - 5.50 m/uL [facility] DEPARTMENT OF PATHOLOGY AND GENOMIC MEDICINE HGB 9.7 (L) 12.0 - 16.0 g/dL [facility] DEPARTMENT OF PATHOLOGY AND GENOMIC MEDICINE HCT 27.9 (L) 37.0 - 47.0 % [facility] DEPARTMENT OF PATHOLOGY AND GENOMIC MEDICINE MCV 88.0 82.0 - 100.0 fL [facility] DEPARTMENT OF PATHOLOGY AND GENOMIC MEDICINE MCH 30.6 27.0 - 34.0 pg [facility] DEPARTMENT OF PATHOLOGY AND GENOMIC MEDICINE MCHC 34.8 31.0 - 37.0 g/dL [facility] DEPARTMENT OF PATHOLOGY AND GENOMIC MEDICINE RDW - SD 44.6 37.0 - 55.0 fL [facility] DEPARTMENT OF PATHOLOGY AND GENOMIC MEDICINE MPV 10.4 6.9 - 11.0 fL [facility] DEPARTMENT OF PATHOLOGY AND GENOMIC MEDICINE Platelet count 35 (LL) 150 - 400 K/uL [facility] DEPARTMENT OF PATHOLOGY Comment: AND GENOMIC MEDICINE Final results called to and read back by ARNALDO ROBERTSON RN 08/14/2018 08:04 JLABQLD/ CU Nucleated RBC 0.00 /100 WBC [facility] DEPARTMENT OF PATHOLOGY AND GENOMIC MEDICINE Neutrophils 3.0 (L) 39.0 - 69.0 % [facility] DEPARTMENT OF PATHOLOGY AND GENOMIC MEDICINE Lymphocytes 97.0 (H) 25.0 - 45.0 % [facility] DEPARTMENT OF PATHOLOGY AND GENOMIC MEDICINE Monocytes 0.0 0.0 - 10.0 % [facility] DEPARTMENT OF PATHOLOGY AND GENOMIC MEDICINE Eosinophils 0.0 0.0 - 5.0 % [facility] DEPARTMENT OF PATHOLOGY AND GENOMIC MEDICINE Basophils 0.0 0.0 - 1.0 % [facility] DEPARTMENT OF PATHOLOGY AND GENOMIC MEDICINE Specimen Blood Performing Organization Address City/[facility] Phone Number [address] [place] Basic metabolic panel (08/14/2018 5:58 AM BRIM POUNCER MACHINE OPERATOR)Only the most recent of3 resultswithin the time period is included. Sodium 141 135 - 148 mEq/L [facility] DEPARTMENT OF PATHOLOGY AND GENOMIC MEDICINE Potassium 4.1 3.5 - 5.0 mEq/L [facility] DEPARTMENT OF PATHOLOGY AND GENOMIC MEDICINE Chloride 104 98 - 112 mEq/L [facility] DEPARTMENT OF PATHOLOGY AND GENOMIC MEDICINE CO2 24 24 - 31 mEq/L [facility] DEPARTMENT OF PATHOLOGY AND GENOMIC MEDICINE Anion gap 13@ANIO 7 - 15 mEq/L [facility] DEPARTMENT OF PATHOLOGY AND GENOMIC MEDICINE BUN 11 8 - 23 mg/dL [facility] DEPARTMENT OF PATHOLOGY AND GENOMIC MEDICINE Creatinine 0.69 0.50 - 0.90 mg/dL [facility] DEPARTMENT OF PATHOLOGY AND GENOMIC MEDICINE Glucose 107 (H) 65 - 99 mg/dL [facility] DEPARTMENT OF PATHOLOGY AND GENOMIC MEDICINE Calcium 9.1 8.8 - 10.2 mg/dL [facility] DEPARTMENT OF PATHOLOGY AND GENOMIC MEDICINE Specimen Plasma specimen Performing Organization Address City/[facility] Phone Number [facility] DEPARTMENT [address] [place] Transfuse platelets (08/13/2018 7:08 PM BRIM POUNCER MACHINE OPERATOR)Only the most recent of6 resultswithin the time period is included.Transfuse RBC (08/13/2018 2:53 PM BRIM POUNCER MACHINE OPERATOR )Only the most recent of4 resultswithin the time period is included.Troponin ( 7:50 AM BRIM POUNCER MACHINE OPERATOR)Only the most recent of3 resultswithin the time period is included. Troponin <0.30 0.00 - 0.30 ng/mL [facility] DEPARTMENT OF PATHOLOGY Comment: AND GENOMIC MEDICINE 0.11 - 1.49 ng/mlMay indicate increased risk of acute coronary syndrome. >=1.5 ng/mlConsistent with acute myocardial infarction. The diagnostic value of a single normal or non-diagnostic result is questionable.Serial samples at 2-6 hour intervals are required to rule out acute myocardial injury. Specimen Plasma specimen Performing Organization Address City/State/Zipcode Phone Number [facility] DEPARTMENT OF PATHOLOGY [address] [place] [address] AND [facility] Urinalysis screen and microscopy, with reflex to culture (08/13/2018 3:36 AM BRIM POUNCER MACHINE OPERATOR)Only the most recent of2 resultswithin the time period is included. Specimen site Clean catch [facility] DEPARTMENT OF PATHOLOGY AND GENOMIC MEDICINE Color, UA Straw [facility] DEPARTMENT OF PATHOLOGY AND GENOMIC MEDICINE Appearance, UA Clear [facility] DEPARTMENT OF PATHOLOGY AND GENOMIC MEDICINE Specific gravity, UA 1.008 1.001 - 1.030 [facility] DEPARTMENT OF PATHOLOGY AND GENOMIC MEDICINE pH, UA 6.0 5.0 - 9.0 [facility] DEPARTMENT OF PATHOLOGY AND GENOMIC MEDICINE Protein, UA Negative Negative [facility] DEPARTMENT OF PATHOLOGY AND GENOMIC MEDICINE Glucose, UA Negative Negative [facility] DEPARTMENT OF PATHOLOGY AND GENOMIC MEDICINE Ketones, UA Negative Negative [facility] DEPARTMENT OF PATHOLOGY AND GENOMIC MEDICINE Bilirubin, UA Negative Negative [facility] DEPARTMENT OF PATHOLOGY AND GENOMIC MEDICINE Blood, UA Negative Negative [facility] DEPARTMENT OF PATHOLOGY AND GENOMIC MEDICINE Nitrite, UA Negative Negative [facility] DEPARTMENT OF PATHOLOGY AND GENOMIC MEDICINE Urobilinogen, UA <2.0 <2.0 E.U./dL [facility] DEPARTMENT OF PATHOLOGY AND GENOMIC MEDICINE Leukocyte esterase, UA Negative Negative [facility] DEPARTMENT OF PATHOLOGY AND GENOMIC MEDICINE Epithelial cells, UA <1 /HPF [facility] DEPARTMENT OF PATHOLOGY AND GENOMIC MEDICINE WBC, UA <1 0 - 4 /HPF [facility] DEPARTMENT OF PATHOLOGY AND GENOMIC MEDICINE RBC, UA <1 0 - 5 /HPF [facility] DEPARTMENT OF PATHOLOGY AND GENOMIC MEDICINE Bacteria, UA None seen None seen [facility] DEPARTMENT OF PATHOLOGY AND GENOMIC MEDICINE Yeast, UA None seen [facility] DEPARTMENT OF PATHOLOGY AND GENOMIC MEDICINE Yeast with pseudohyphae, UA None seen [facility] DEPARTMENT OF PATHOLOGY AND GENOMIC MEDICINE Specimen Urine Performing Organization Address City/[facility] Phone Number [facility] DEPARTMENT OF PATHOLOGY [address] [place] [address]. [place] [address] AND [facility] Urine culture (08/13/2018 3:36 AM BRIM POUNCER MACHINE OPERATOR)Only the most recent of2 resultswithin the time period is included. Urine culture SEE COMMENTComment: Bacteriuria [facility] DEPARTMENT OF PATHOLOGY screen negative. AND GENOMIC MEDICINE Performing Organization Address City/[facility] Phone Number [facility] DEPARTMENT OF PATHOLOGY [address] [place] [address]. [place] [address] AND [facility] Partial thromboplastin time, activated (08/13/2018 3:31 AM BRIM POUNCER MACHINE OPERATOR)Only the most recent of2 resultswithin the time period is included. PTT 29.5 23.0 - 36.0 sec [facility] DEPARTMENT OF Comment: PATHOLOGY AND [facility] PTT therapeutic range for unfractionated heparin is MEDICINE 61.0-112.0 seconds which corresponds to Anti-Xa 0.3-0.7 U/ml. Specimen Blood Performing Organization Address [facility] Phone Number [facility] DEPARTMENT OF PATHOLOGY [address] [place] [address]. [place] [address] AND [facility] Prothrombin time with INR (08/13/2018 3:31 AM BRIM POUNCER MACHINE OPERATOR)Only the most recent of2 resultswithin the time period is included. Prothrombin time 13.1 11.5 - 14.5 sec [facility] DEPARTMENT OF PATHOLOGY AND GENOMIC MEDICINE INR 1.0 [facility] DEPARTMENT OF Comment: PATHOLOGY AND [facility] The International Normalized Ratio (INR) is a therapeutic MEDICINE monitoring tool for patients who are stable on oral anticoagulant therapy. An INR of 2.0-3.0 is suggested for deep vein thrombosis/pulmonary embolism. Specimen Blood Performing Organization Address City/[facility]/Zipcode Phone Number [facility] DEPARTMENT OF PATHOLOGY [address] [place] [address]. [place] [address] AND [facility] Reticulocyte count (08/13/2018 3:31 AM BRIM POUNCER MACHINE OPERATOR)Only the most recent of2 resultswithin the time period is included. Retic %, auto 0.3 (L) 0.5 - 2.1 % [facility] DEPARTMENT OF PATHOLOGY AND GENOMIC MEDICINE Retic absolute, auto 0.0080 (L) 0.0210 - 0.1155 m/uL [facility] DEPARTMENT OF PATHOLOGY AND GENOMIC MEDICINE Specimen Blood Performing Organization Address [facility] Phone Number [facility] DEPARTMENT OF PATHOLOGY [id number] [place] [address] AND [facility] MEDICINE Magnesium level (08/13/2018 3:31 AM BRIM POUNCER MACHINE OPERATOR) Magnesium 2.0 1.6 - 2.4 mg/dL [facility] DEPARTMENT OF PATHOLOGY AND GENOMIC MEDICINE Specimen Plasma specimen Performing Organization Address [facility] Phone Number [facility] DEPARTMENT OF PATHOLOGY [id number] [place] [address] AND [employer] MEDICINE Comprehensive metabolic panel (08/13/2018 3:31 AM BRIM POUNCER MACHINE OPERATOR)Only the most recent of2 resultswithin the time period is included. Sodium 143 135 - 148 mEq/L [facility] DEPARTMENT OF PATHOLOGY AND GENOMIC MEDICINE Potassium 4.1 3.5 - 5.0 mEq/L [facility] DEPARTMENT OF PATHOLOGY AND GENOMIC MEDICINE Chloride 107 98 - 112 mEq/L [facility] DEPARTMENT OF PATHOLOGY AND GENOMIC MEDICINE CO2 24 24 - 31 mEq/L [facility] DEPARTMENT OF PATHOLOGY AND GENOMIC MEDICINE Anion gap 12@ANIO 7 - 15 mEq/L [facility] DEPARTMENT OF PATHOLOGY AND GENOMIC MEDICINE BUN 13 8 - 23 mg/dL [facility] DEPARTMENT OF PATHOLOGY AND GENOMIC MEDICINE Creatinine 0.78 0.50 - 0.90 mg/dL [facility] DEPARTMENT OF PATHOLOGY AND GENOMIC MEDICINE Glucose 112 (H) 65 - 99 mg/dL [facility] DEPARTMENT OF PATHOLOGY AND GENOMIC MEDICINE Calcium 9.4 8.8 - 10.2 mg/dL [facility] DEPARTMENT OF PATHOLOGY AND GENOMIC MEDICINE Protein 6.4 6.3 - 8.3 g/dL [facility] DEPARTMENT OF PATHOLOGY AND GENOMIC MEDICINE Albumin 3.9 3.5 - 5.0 g/dL [facility] DEPARTMENT OF PATHOLOGY AND GENOMIC MEDICINE A/G ratio 1.6 0.7 - 3.8 [facility] DEPARTMENT OF PATHOLOGY AND GENOMIC MEDICINE Alkaline phosphatase 66 35 - 104 U/L [facility] DEPARTMENT OF PATHOLOGY AND GENOMIC MEDICINE AST 13 10 - 35 U/L [facility] DEPARTMENT OF PATHOLOGY AND GENOMIC MEDICINE ALT 9 5 - 50 U/L [facility] DEPARTMENT OF PATHOLOGY AND GENOMIC MEDICINE Total bilirubin 0.3 0.2 - 1.2 mg/dL [facility] DEPARTMENT OF PATHOLOGY AND GENOMIC MEDICINE Specimen Plasma specimen Performing Organization Address City/State/Zipcode Phone Number [facility] DEPARTMENT OF PATHOLOGY [address] [place] [address] AND GENOMIC MEDICINE ECG ED Preliminary Interpretation - NOT AN ORDER (08/13/2018 3:17 AM BRIM POUNCER MACHINE OPERATOR)Only the most recent of2 resultswithin the time period is included. Narrative Performed At Higinio Hand MD 08/14/20188:40 PM ECG ED Preliminary Interpretation - Not an Order Performed by: HIGINIO HAND Authorized by: HIGINIO HAND ECG reviewed by ED Physician in the absence of a msws: yes Interpretation: Interpretation: abnormal Rate: ECG rate:83 ECG rate assessment: normal Rhythm: Rhythm: sinus rhythm Ectopy: Ectopy: none QRS: QRS axis:Normal QRS intervals:Normal ST segments: ST segments:Normal T waves: T waves: non-specific CRITICAL CARE (08/13/2018 3:17 AM BRIM POUNCER MACHINE OPERATOR) Narrative Performed At Higinio Hand MD 08/14/20188:40 [...] platelet pheresis, 2 Units (08/13/2018 2:44 AM BRIM POUNCER MACHINE OPERATOR)Only the most recent of2 resultswithin the time period is included. Product name PlateletsAph,LR Path [facility] DEPARTMENT OF Inactivated PATHOLOGY AND GENOMIC MEDICINE Unit number [id number] [facility] DEPARTMENT OF PATHOLOGY AND GENOMIC MEDICINE Product code [id number] [facility] DEPARTMENT OF PATHOLOGY AND GENOMIC MEDICINE Dispense status Transfused [facility] DEPARTMENT OF PATHOLOGY AND GENOMIC MEDICINE Blood expiration date [facility] DEPARTMENT OF PATHOLOGY AND GENOMIC MEDICINE Blood type code 0600 [facility] DEPARTMENT OF PATHOLOGY AND GENOMIC MEDICINE Blood type A NEGATIVE [facility] DEPARTMENT OF PATHOLOGY AND GENOMIC MEDICINE Product name Platelets, Aph#2 LR Path [facility] DEPARTMENT OF Inactiv PATHOLOGY AND GENOMIC MEDICINE Unit number [id number] [facility] DEPARTMENT OF PATHOLOGY AND GENOMIC MEDICINE Product code [id number] [facility] DEPARTMENT OF PATHOLOGY AND GENOMIC MEDICINE Dispense status Transfused [facility] DEPARTMENT OF PATHOLOGY AND GENOMIC MEDICINE Blood expiration date [facility] DEPARTMENT OF PATHOLOGY AND GENOMIC MEDICINE Blood type code 7300 [facility] DEPARTMENT OF PATHOLOGY AND GENOMIC MEDICINE Blood type B POSITIVE [facility] DEPARTMENT OF PATHOLOGY AND GENOMIC MEDICINE Performing Organization Address City/State/Zipcode Phone Number [facility] DEPARTMENT OF PATHOLOGY [address] [place] [address] [employer] [address] [facility] Prepare RBC, 2 Units (08/13/2018 2:44 AM BRIM POUNCER MACHINE OPERATOR)Only the most recent of2 resultswithin the time period is included. Product name Red Blood Cells -1, [facility] DEPARTMENT OF Leukored PATHOLOGY AND GENOMIC MEDICINE Unit number [id number] [facility] DEPARTMENT OF PATHOLOGY AND GENOMIC MEDICINE Product code [id number] [facility] DEPARTMENT OF PATHOLOGY AND GENOMIC MEDICINE Dispense status Transfused [facility] DEPARTMENT OF PATHOLOGY AND GENOMIC MEDICINE Blood expiration date [facility] DEPARTMENT OF PATHOLOGY AND GENOMIC MEDICINE Blood type code 8400 [facility] DEPARTMENT OF PATHOLOGY AND GENOMIC MEDICINE Blood type AB POSITIVE [facility] DEPARTMENT OF PATHOLOGY AND GENOMIC MEDICINE Product name Red Blood Cells -1, [facility] DEPARTMENT OF Leukored PATHOLOGY AND GENOMIC MEDICINE Unit number [id number] [facility] DEPARTMENT OF PATHOLOGY AND GENOMIC MEDICINE Product code [id number] [facility] DEPARTMENT OF PATHOLOGY AND GENOMIC MEDICINE Dispense status Transfused [facility] DEPARTMENT OF PATHOLOGY AND GENOMIC MEDICINE Blood expiration date [facility] DEPARTMENT OF PATHOLOGY AND GENOMIC MEDICINE Blood type code 8400 [facility] DEPARTMENT OF PATHOLOGY AND GENOMIC MEDICINE Blood type AB POSITIVE [facility] DEPARTMENT OF PATHOLOGY AND GENOMIC MEDICINE Performing Organization Address City/State/Zipcode Phone Number [facility] DEPARTMENT OF PATHOLOGY [address] [place] [address] AND GENOMIC MEDICINE Type and screen (08/13/2018 2:44 AM BRIM POUNCER MACHINE OPERATOR)Only the most recent of2 resultswithin the time period is included. ABO grouping AB [facility] DEPARTMENT OF PATHOLOGY AND GENOMIC MEDICINE Rh type POS [facility] DEPARTMENT OF PATHOLOGY AND GENOMIC MEDICINE Antibody screen (gel) NEG [facility] DEPARTMENT OF PATHOLOGY AND GENOMIC MEDICINE Specimen Blood Performing Organization Address City/State/Zipcode Phone Number [facility] DEPARTMENT OF PATHOLOGY [address] [facility] [place] [address] AND expressor software MEDICINE Miscellaneous referral test (08/10/2018)Only the most [...] mediastinal, retroperitoneal, mesenteric, inguinal, and iliac adenopathy. [id number] Procedure Note Hm Interface, Radiology Results Incoming - 07/24/2018 6:06 [...] retroperitoneal, mesenteric , inguinal, and iliac adenopathy. [facility]-[id number] Performing Organization Address City/[facility] Phone Number [address] [address] Total iron binding capacity (07/23/2018 10:40 PM CDT) Iron level 219 (H) 37 - 145 ug/dL [facility] DEPARTMENT OF PATHOLOGY AND GENOMIC MEDICINE Iron binding capacity 250 (L) 260 - 460 ug/dL [facility] DEPARTMENT OF PATHOLOGY AND GENOMIC MEDICINE % Saturation 87.6 (H) 15.0 - 38.0 % [facility] DEPARTMENT OF PATHOLOGY AND GENOMIC MEDICINE Specimen Serum Performing Organization Address [facility] Phone Number [facility] DEPARTMENT OF PATHOLOGY [address] [place] [phone] AND [facility] Rapid HIV 1 & 2 (07/23/2018 10:40 PM CDT) Rapid HIV 1 and 2 Non-Reactive Non-Reactive [facility] DEPARTMENT OF PATHOLOGY AND GENOMIC MEDICINE Specimen Blood Performing Organization Address City/[facility] Phone Number [facility] DEPARTMENT OF PATHOLOGY [address] [place] [phone] AND [facility] Flow cytometry evaluation (07/23/2018 10:40 PM CDT) [facility] DEPARTMENT OF PATHOLOGY AND GENOMIC MEDICINE Flow cytometry evaluation See link below for PDF [facility] DEPARTMENT OF Lab Report PATHOLOGY AND GENOMIC MEDICINE Specimen Blood Performing Organization Address City/[facility] Phone Number [facility] DEPARTMENT OF PATHOLOGY AND [address] [place] [address] [facility] Hepatitis acute panel (07/23/2018 10:40 PM CDT) Hepatitis A IgM Non-reactive Non-reactive [facility] GENOMIC MEDICINE Specimen Serum Performing Organization Address City/[facility] Phone Number [facility] DEPARTMENT OF PATHOLOGY AND [address] [place] [phone] [place] [address] Immunofixation, serum (07/23/2018 10:40 PM CDT) Immunofixation, serum SEE COMMENTComment: See [facility] DEPARTMENT OF electrophoresis report below. PATHOLOGY AND GENOMIC MEDICINE Specimen Serum Narrative Performed At MARY add by pathologist reviewing [facility] DEPARTMENT OF PATHOLOGY AND GENOMIC electrophoresis. MEDICINE Performing Organization Address City/[facility] Hospitalcosd Phone Number [facility] DEPARTMENT OF PATHOLOGY AND [address] [place] [address] [facility] Serum electrophoresis (07/23/2018 10:40 PM CDT) Protein [...] is not excluded.646 SPE interpretation See CommentComment: [facility] DEPARTMENT OF Adriane BAEZA, MPH; Catalina Cole PATHOLOGY AND PhD; Dionna Velez MD GENOMIC MEDICINE Specimen Serum Narrative Performed At MARY add by pathologist reviewing [facility] DEPARTMENT OF PATHOLOGY AND GENOMIC electrophoresis. MEDICINE Performing Organization Address City/[facility] Phone Number [facility] DEPARTMENT OF PATHOLOGY AND [address] [place] [address] GENOMIC MEDICINE LDH (07/23/2018 10:40 PM CDT) LDH 129 87 - 225 U/L [facility] DEPARTMENT OF PATHOLOGY AND GENOMIC MEDICINE Specimen Serum Performing Organization Address City/[facility] Phone Number [facility] DEPARTMENT OF PATHOLOGY [address] [place] [address] AND GENOMIC MEDICINE Haptoglobin (07/23/2018 10:40 PM CDT) Haptoglobin 133 30 - 200 mg/dL [facility] DEPARTMENT OF PATHOLOGY AND GENOMIC MEDICINE Specimen Plasma specimen Performing Organization Address City/[facility] Phone Number [facility] DEPARTMENT OF PATHOLOGY AND [address] [place] [address] GENOMIC MEDICINE Immunoglobulin A (07/23/2018 10:40 PM CDT) IgA 77 70 - 400 mg/dL [facility] DEPARTMENT OF PATHOLOGY AND GENOMIC MEDICINE Specimen Plasma specimen Narrative Performed At MARY add by pathologist reviewing [facility] DEPARTMENT OF PATHOLOGY AND GENOMIC electrophoresis. MEDICINE Performing Organization Address City/[facility]/Zipcode Phone Number [facility] DEPARTMENT OF PATHOLOGY AND [address] [place] [address] GENOMIC MEDICINE Immunoglobulin M (07/23/2018 10:40 PM CDT) IgM <25 (L) 33 - 255 mg/dL [facility] DEPARTMENT OF PATHOLOGY AND GENOMIC MEDICINE Specimen Plasma specimen Performing Organization Address City/[facility]/Zipcode Phone Number [facility] DEPARTMENT OF PATHOLOGY AND [address] [place] [address] MEDICINE Immunoglobulin G (07/23/2018 10:40 PM CDT) IgG 704 700 - 1,600 mg/dL [facility] DEPARTMENT OF PATHOLOGY AND GENOMIC MEDICINE Specimen Plasma specimen Narrative Performed At MARY add by pathologist reviewing [facility] DEPARTMENT OF PATHOLOGY AND GENOMIC electrophoresis. MEDICINE Performing Organization Address City/[facility] Phone Number [facility] DEPARTMENT OF PATHOLOGY AND [address] [place] [address] Folate RBC (group test) (07/23/2018 10:40 PM CDT) RBC folate 1,451 499 - 1,504 ng/mL [facility] DEPARTMENT OF PATHOLOGY AND GENOMIC MEDICINE Specimen Blood Performing Organization Address [facility] Phone Number [facility] DEPARTMENT OF PATHOLOGY AND [address] [place] [address] MEDICINE Ferritin level (07/23/2018 10:40 PM CDT) Ferritin level 1,045 (H) 13 - 150 ng/mL [facility] DEPARTMENT OF PATHOLOGY AND GENOMIC MEDICINE Specimen Plasma specimen Performing Organization Address City/[facility] Phone Number [facility] DEPARTMENT OF PATHOLOGY AND [address] [place] [address] MEDICINE Vitamin B12 level (07/23/2018 10:40 PM CDT) Vitamin B12 227 211 - 946 pg/mL [facility] DEPARTMENT OF PATHOLOGY Comment: AND GENOMIC MEDICINE Significant overlap exists between normal and deficiency states. However, most patients with deficiencies will have Serum B12 <200 pg/mL. Specimen Serum Performing Organization Address [facility] Phone Number [facility] DEPARTMENT OF PATHOLOGY AND [address] [place] [address] MEDICINE XR Chest 1 Vw (07/23/2018 7:27 PM CDT) Narrative Performed At EXAMINATION: XR CHEST 1 VW RADIANT INDICATION: Coughpersistent COMPARISON: None IMPRESSION: No discrete airspace disease or pulmonary edema. Right hemidiaphragmatic eventration. No pleural effusion or pneumothorax. Cardiomediastinal silhouette within normal limits for portable technique. Probable aortic calcifications. Spondylosis. Severe left shoulder osteoarthritis. [facility]-[id number] Procedure Note Hm Interface, Radiology Results Incoming - 07/23/2018 7:44 PM CDT EXAMINATION: XR CHEST 1 VW INDICATION: Cough persistent COMPARISON: None IMPRESSION: No discrete airspace disease or pulmonary edema. Right hemidiaphragmatic eventration. No pleural effusion or pneumothorax. Cardiomediastinal silhouette within normal limits for portable technique. Probable aortic calcifications. Spondylosis. Severe left shoulder osteoarthritis. [facility]-[id number] Performing Organization Address City/[facility]/Zipcode Phone Number [facility] [address] [place] [address] Direct Vaughn' (DEMAR) (07/23/2018 5:21 PM CDT) [id number] Polyspecific NEG [facility] DEPARTMENT OF PATHOLOGY AND GENOMIC MEDICINE IgG Vaughn, gel NEG [facility] DEPARTMENT OF PATHOLOGY AND GENOMIC MEDICINE Anti-complement NEG [facility] DEPARTMENT OF PATHOLOGY AND GENOMIC MEDICINE Specimen Blood Performing Organization Address City/[facility]code Phone Number [facility] DEPARTMENT OF PATHOLOGY [address] [place] [address] AND [facility] Blood smear consult (07/23/2018 5:19 PM CDT) Blood smear consult Footnote [facility] DEPARTMENT OF Comment: PATHOLOGY AND GENOMIC Increase in Lymphocytes and increase in smudged lymphocytes, MEDICINE Thrombocytopenia, called to Abril Morrisseyt112:00. History of CLL.Slide reviewed by pathologist, Dr. Higgins. Performing Organization Address [facility] Phone Number [facility] DEPARTMENT OF PATHOLOGY [address] [place] [address] AND [facility] Lipase level (07/23/2018 5:19 PM CDT) Lipase 25 13 - 60 U/L [facility] DEPARTMENT OF PATHOLOGY AND GENOMIC MEDICINE Specimen Plasma specimen Performing Organization Address City/[facility] Phone Number [facility] DEPARTMENT OF PATHOLOGY [address] [place] [address] AND [facility] Amylase level (07/23/2018 5:19 PM CDT) Amylase 15 13 - 73 U/L [facility] DEPARTMENT OF PATHOLOGY AND GENOMIC MEDICINE Specimen Plasma specimen Performing Organization Address [facility] Phone Number [facility] DEPARTMENT OF PATHOLOGY [address] [place] [address] AND [facility] ECG 12 lead (07/23/2018 5:09 PM CDT) Ventricular rate 76 [facility]USE Atrial rate 76 [facility] [place] interval 156 [facility] QRSD interval 82 [...] available- Performing Organization Address City/State/Zipcode Phone Number [facility] [address] [address] [place] [address] after 09/18/2017 Insurance Payer Benefit Plan / Group Subscriber ID Type Phone Address [facility] [employer] [facility]SP[facility] M[facility] ADV xxxxxxxx O Advance Directives Patient has advance care planning documents on file. For more information, please contact:Manan Minor[address] [place] [address]
--- OUTSIDE RECORDS SUMMARY | 2018-09-19 07:33 | XMS REPORT | Clinical Summary ---
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 Social History Tobacco Use Types Packs/Day Years [...] Taken Blood Pressure 118/61 09/06/2018 5:04 PM SHEET [employer]URING SUPERVISOR Pulse 72 09/06/2018 5:04 PM SHEET [employer]URING SUPERVISOR Temperature 37.1 C (98.8 F) 09/06/2018 5:04 PM SHEET [employer]URING SUPERVISOR Respiratory Rate 20 09/06/2018 5:04 PM SHEET [employer]CTURING SUPERVISOR Oxygen Saturation 96% 09/06/2018 5:04 PM SHEET [employer]UFACTURING SUPERVISOR Inhaled Oxygen Concentration - - Weight 89.4 kg (197 lb 1.6 oz) 09/04/2018 1:31 AM SHEET MANUFACTURING SUPERVISOR Height 160 cm (5' 3") 09/04/2018 1:31 AM SHEET [employer]URING SUPERVISOR Body Mass Index 34.91 09/04/2018 1:31 AM SHEET [employer]ING SUPERVISOR Plan of Treatment Not on file Procedures Procedure Name Priority Date/Time Associated Comments Diagnosis TRANSFUSION SERVICE 09/08/2018 6:01 REPORT - SCAN PM SHEET [employer]URING SUPERVISOR PREPARE LEUKO-REDUCED Routine 09/07/2018 11:55 Results for this PLATELETS PM SHEET [employer]URING SUPERVISOR procedure are in the results section. TRANSFUSION SERVICE 09/07/2018 6:01 REPORT - SCAN PM SHEET [employer]URING SUPERVISOR REPORT OF PROCEDURE - 09/07/2018 1:30 ENDOSCOPY SCAN PM [employer]ET [employer]ING SUPERVISOR PREPARE LEUKO-REDUCED Routine 09/06/2018 11:54 Results for this AND IRRADIATED RBC PM SHEET [employer]URING SUPERVISOR procedure are in the results section. TRANSFUSE Routine 09/06/2018 5:08 LEUKO-REDUCED PM SHEET [employer]URING SUPERVISOR PLATELETS (CELLAVISION MANUAL Routine 09/06/2018 5:47 Results for this DIFF) AM SHEET [employer]ING SUPERVISOR procedure are in the results section. CBC W/PLT COUNT & AUTO Routine 09/06/2018 5:47 Results for this DIFFERENTIAL AM [employer]ING SUPERVISOR procedure are in the results section. CBC W/PLT COUNT & AUTO Routine 09/06/2018 5:47 Results for this DIFFERENTIAL AM [employer]PER[employer]OR procedure are in the results section. PERIPHERAL BLOOD SMEAR Routine 09/06/2018 5:47 Results for this - HOLD ONLY AM [employer]ING SUPERVISOR procedure are in the results section. MAGNESIUM Routine 09/06/2018 5:47 Results for this AM SHE[employer]ING SUPERVISOR procedure are in the results section. PT/APTT Routine 09/06/2018 5:47 Results for this AM [employer]ING SUPERVISOR procedure are in the results section. HEPATIC FUNCTION PANEL Routine 09/06/2018 5:47 Results for this AM [employer]ING [employer]PERVISOR procedure are in the results section. BASIC METABOLIC PANEL Routine 09/06/2018 5:47 Results for this (7) AM [employer]ING [employer]PER[employer]OR procedure are in the results section. TRANSFUSION SERVICE 09/05/2018 6:01 REPORT - SCAN PM SHEET [employer]UFACTURING SUPERVISOR (CELLAVISION MANUAL Routine 09/05/2018 4:39 Results for this DIFF) PM SHEET [employer]ING SUPERVISOR procedure are in the results section. CBC W/PLT COUNT & AUTO Routine 09/05/2018 4:39 Results for this DIFFERENTIAL PM [employer]ING SUPERVISOR procedure are in the results section. CBC W/PLT COUNT & AUTO Routine 09/05/2018 4:39 Results for this DIFFERENTIAL PM [employer]PER[employer]OR procedure are in the results section. PERIPHERAL BLOOD SMEAR Routine 09/05/2018 6:53 Results for this - HOLD ONLY AM [employer]ING [employer]PER[employer]OR procedure are in the results section. MAGNESIUM Routine 09/05/2018 6:53 Results for this AM [employer]PERVISOR procedure are in the results section. PT/APTT Routine 09/05/2018 6:53 Results for this AM [employer]ING [employer]PERVISOR procedure are in the results section. HEPATIC FUNCTION PANEL Routine 09/05/2018 6:53 Results for this AM [employer]ING SUPER[employer]OR procedure are in the results section. BASIC METABOLIC PANEL Routine 09/05/2018 6:53 Results for this (7) AM [employer]PER[employer]OR procedure are in the results section. TRANSFUSE Routine 09/05/2018 4:55 LEUKO-REDUCED AND AM [employer]URING SUPERVISOR IRRADIATED RED BLOOD CELLS TYPE AND SCREEN, Routine 09/04/2018 7:03 Results for this AUTOMATED PM [employer]PER[employer]OR procedure are in the results section. BLOOD TYPING, Routine 09/04/2018 10:37 Results for this AUTOMATED AM [employer] SUPER[employer]OR procedure are in the results section. DIRECT AHG Routine 09/04/2018 10:37 Results for this (DEMAR)/DIRECT GREG AM [employer] SUPERVISOR procedure are in the results section. IRON, TIBC, % SAT. Routine 09/04/2018 10:37 Results for this (WITHOUT FERRITIN) AM [employer]ING SUPERVISOR procedure are in the results section. FERRITIN Routine 09/04/2018 10:37 Results for this AM SHEET [employer]URING SUPERVISOR procedure are in the results section. RETICULOCYTE COUNT Routine 09/04/2018 10:37 Results for this AM [employer]ING [employer]PERVISOR procedure are in the results section. LACTATE DEHYDROGENASE Routine 09/04/2018 10:37 Results for this (LDH) AM [employer]PER[employer]OR procedure are in the results section. HAPTOGLOBIN Routine 09/04/2018 10:37 Results for this AM [employer]ING SUPERVISOR procedure are in the results section. XR CHEST 1 VIEW Routine 09/04/2018 6:53 Results for this PORTABLE/BEDSIDE AM [employer] procedure are in the results section. URINALYSIS W/ Routine 09/04/2018 5:33 Results for this MICROSCOPIC AM [employer]PER[employer]OR procedure are in the results section. (CELLAVISION MANUAL Routine 09/04/2018 5:16 Results for this DIFF) AM [employer]ING [employer]PERVISOR procedure are in the results section. CBC W/PLT COUNT & AUTO Routine 09/04/2018 5:16 Results for this DIFFERENTIAL AM [employer]PER[employer]OR procedure are in the results section. HIV-1 ANTIGEN WITH Routine 09/04/2018 5:16 Results for this HIV-1/2 ANTIBODY AM [employer]PER[employer]OR procedure are in the results section. HEPATITIS C ANTIBODY Routine 09/04/2018 5:16 Results for this AM [employer]PERVISOR procedure are in the results section. VITAMIN B12 AND FOLATE Routine 09/04/2018 5:16 Results for this AM [employer]PER[employer]OR procedure are in the results section. TSH/FREE T4 IF Routine 09/04/2018 5:16 Results for this INDICATED AM [employer]PER[employer]OR procedure are in the results section. PERIPHERAL BLOOD SMEAR Routine 09/04/2018 5:16 Results for this - HOLD ONLY AM [employer]PER[employer]OR procedure are in the results section. CBC W/PLT COUNT & AUTO Routine 09/04/2018 5:16 Results for this DIFFERENTIAL AM [employer] SUPERVISOR procedure are in the results section. after 09/18/2017 Results TRANSFUSION SERVICE REPORT - SCAN (09/08/2018 6:01 PM SHEET MANUFACTURING SUPERVISOR)Only the most recent of3 resultswithin the time period is included. Narrative Performed At Prepare Leuko-Red PLT (09/07/2018 11:55 PM SHEET MANUFACTURING SUPERVISOR) Unit ABO A Pos [place] UNIT NUMBER [id number] [place] Status TRANSFUSED [place] Blood Bank Product PLATELETS [place] PRODUCT CODE [id number] [place] Specimen Blood Performing Organization Address City/State/Zipcode Phone Number [place] EKG-SCANNED (09/07/2018 1:30 PM SHEET MANUFACTURING SUPERVISOR) Narrative Performed At Prepare Leuko-Red & Irrad RBC (09/06/2018 11:54 PM SHEET MANUFACTURING SUPERVISOR) CROSSMATCH COMPATIBLE [place] Unit ABO A Pos [place] UNIT NUMBER [id number] [place] Status TRANSFUSED [place] Blood Bank Product RED BLOOD CELLS [place] PRODUCT CODE [id number] [place] Specimen Other Performing Organization Address City/[facility]/Zipcode Phone Number [place] Transfuse Leuko-Red PLT (09/06/2018 5:08 PM SHEET MANUFACTURING SUPERVISOR)Only the most recent of2 resultswithin the time period is included.Manual Differential (09/06/2018 5:47 AM SHEET MANUFACTURING SUPERVISOR)Only the most recent of3 resultswithin the time period is included. % Neutros 2 % [facility] % Lymphs 97 % [facility] % Monos 1 % [facility] # Neutros 0.06 (L) 1.56 - 6.13 K/ul [facility] # Lymphs 3.10 1.18 - 3.74 K/ul [facility] # Monos 0.03 (L) 0.24 - 0.36 K/uL [facility] Total Counted 100 [facility] WBC Morphology Normal [facility] Platelet Morphology Normal [facility] Anisocytosis 2+ moderate [facility] Microcytes 2+ moderate [facility] Artifact Present [facility] Platelet Conc Decreased [facility] Specimen Blood Narrative Performed At Received comment: [facility] User comments: Slide comments: Performing Organization Address City/State/Zipcode Phone Number [facility] [address] [place] [address] [phone] CENTER PT/aPTT (09/06/2018 5:47 AM SHEET MANUFACTURING SUPERVISOR)Only the most recent of2 resultswithin the time period is included. Protime 13.5 11.7 - 14.7 seconds [facility] INR 1.0 <=5.9 [facility] PTT 30.1 22.5 - 36.0 seconds [facility] Specimen Blood Narrative Performed At RECOMMENDED COUMADIN/WARFARIN INR THERAPY [facility] RANGES STANDARD DOSE: 2.0 - 3.0 Includes: PROPHYLAXIS for venous thrombosis, systemic embolization; TREATMENT for venous thrombosis and/or pulmonary embolus. HIGH RISK: Target INR is 2.5-3.5 for patients with mechanical heart valves. Performing Organization Address City/State/[facility] Cent[facility] Phone Number [address] [address] CENTER Peripheral Blood Smear - Hold only (09/06/2018 5:47 AM SHEET MANUFACTURING SUPERVISOR)Only the most recent of3 resultswithin the time period is included. Peripheral Smear Save saved [facility] Specimen Blood Performing Organization Address City/[facility] Cent[facility] Phone Number [address] [address] [place] CBC with platelet count + automated diff (09/06/2018 5:47 AM SHEET MANUFACTURING SUPERVISOR)Only the most recent of3 resultswithin the time period is included. WBC 3.2 (L) 3.5 - 10.5 K/L [facility] RBC 2.63 (L) 3.93 - 5.22 M/L [facility] Hemoglobin 8.0 (L) 11.2 - 15.7 GM/DL [facility] Hematocrit 22.7 (L) 34.1 - 44.9 % [facility] MCV 86.3 79.4 - 94.8 fL [facility] MCH 30.4 25.6 - 32.2 pg [facility] MCHC 35.2 32.2 - 35.5 GM/DL [facility] RDW 13.8 11.7 - 14.4 % [facility] Platelets 13 (L) 150 - 450 K/CU MM [facility] MPV 13.1 (H) 9.4 - 12.3 fL [facility] nRBC 0 0 - 0 /100 WBC [facility] Specimen Blood Performing Organization Address City/[facility]/Zipcode Phone Number [address] [address] [place] Magnesium (09/06/2018 5:47 AM SHEET [employer]UFACTURING SUPERVISOR)Only the most recent of2 resultswithin the time period is included. Magnesium 2.0 1.6 - 2.6 mg/dL [facility] Specimen Blood Performing Organization Address [facility] Phone Number [address] [address] [place] Hepatic function panel (09/06/2018 5:47 AM SHEET MANUFACTURING SUPERVISOR)Only the most recent of2 resultswithin the time period is included. Protein, Total 6.1 6.0 - 8.3 gm/dL [facility] Albumin 3.4 (L) 3.5 - 5.0 g/dL [facility] Total Bilirubin 0.5 0.2 - 1.2 mg/dL [facility] Bilirubin, Direct 0.2 0.1 - 0.5 mg/dL [facility] Alkaline Phosphatase 70 40 - 150 U/L [facility] AST 9 5 - 34 U/L [facility] ALT 7 6 - 55 U/L [facility] Specimen Blood Performing Organization Address City/[facility] Cent[facility]ode Phone Number [address] [address] [phone] [place] Basic metabolic panel (09/06/2018 5:47 AM SHEET MANUFACTURING SUPERVISOR)Only the most recent of2 resultswithin the time period is included. Sodium 139 136 - 145 meq/L [facility] Potassium 3.9 3.5 - 5.1 meq/L [facility] Chloride 110 (H) 98 - 107 meq/L [facility] CO2 20 (L) 22 - 29 meq/L [facility] BUN 13 7 - 21 mg/dL [facility] Creatinine 0.61 0.57 - 1.25 mg/dL [facility] Glucose 95 70 - 105 mg/dL [facility] Calcium 8.9 8.4 - 10.2 mg/dL [facility] EGFR 98Comment: ESTIMATED GFR IS mL/min/1.73 sq m [facility] NOT ACCURATE CREATININE [facility] CLEARANCE IN PREDICTING GLOMERULAR FILTRATION RATE. ESTIMATED GFR IS NOT APPLICABLE FOR DIALYSIS PATIENTS. Specimen Blood Performing Organization Address [facility] Centercode Phone Number [address] [address] [phone] CENTER Transfuse Leuko-Red & Irrad RBC (09/05/2018 4:55 AM SHEET MANUFACTURING SUPERVISOR)Only the most recent of2 resultswithin the time period is included.Type and screen, automated (09/04/2018 7:03 PM SHEET MANUFACTURING SUPERVISOR) ABO/RH AUTOMATED (BEAKER) AB POSITIVE [facility] Ab Scrn NEGATIVE [facility] Specimen Blood Performing Organization Address [facility] Cent[facility]ode Phone Number [address] [address] Iron, TIBC, % sat. (without ferritin) (09/04/2018 10:37 AM SHEET MANUFACTURING SUPERVISOR) Iron 204 (H) 40 - 160 ug/dL [facility] TIBC 205 (L) 250 - 450 ug/dL [facility] Iron % Saturation 100 (H) 20 - 55 % [facility] Specimen Blood Performing Organization Address [facility] Cent[facility]ode Phone Number [address] [address] C[place] Blood typing, automated (09/04/2018 10:37 AM SHEET MANUFACTURING SUPERVISOR) ABO/RH AUTOMATED (BEAKER) AB POSITIVE [facility] Specimen Blood Performing Organization Address [facility] Centerconv Phone Number [address] [address] [phone] Reticulocyte count (09/04/2018 10:37 AM SHEET MANUFACTURING SUPERVISOR) % Retic 0.3 (L) 0.5 - 1.7 % [facility] Specimen Blood Performing Organization Address [facility] Phone Number [address] [address] [place] Direct AHG (DEMAR)/Direct Greg (09/04/2018 10:37 AM SHEET MANUFACTURING SUPERVISOR) Direct AHG-IGG NEGATIVE [facility] Direct AHG-C3B, C3D NEGATVIE [facility] Specimen Blood Performing Organization Address [facility] Number [address] [address] Lactate dehydrogenase (LDH) (09/04/2018 10:37 AM SHEET MANUFACTURING SUPERVISOR) LDH 175 125 - 220 U/L [facility] Specimen Blood Performing Organization Address [facility] Phone Number [address] [address] C[place] Haptoglobin (09/04/2018 10:37 AM SHEET MANUFACTURING SUPERVISOR) Haptoglobin 210 14 - 258 mg/dL [facility] Specimen Blood Performing Organization Address [facility] Phone Number [address] [address] [place] Ferritin (09/04/2018 10:37 AM SHEET MANUFACTURING SUPERVISOR) Ferritin 2,214 (H) 5 - 275 ng/mL [facility] Specimen Blood Performing Organization Address City/State/Zipcode Phone Number [facility] [address] [place] [address] [phone] CENTER XR chest 1 view portable / bedside (09/04/2018 6:53 AM SHEET MANUFACTURING SUPERVISOR) Narrative Performed At FINAL REPORT [facility] RAD, CHEST, 1 VIEW, NON DEPT INDICATION: [...] MD Report Verified Date/Time:09/04/2018 07:26:23 Reading Location: [facility] Radiology Reading Room Procedure Note Interface, External Ris In - 09/04/2018 7:32 AM SHEET MANUFACTURING SUPERVISOR FINAL REPORT RAD, CHEST, 1 VIEW, NON [...] Report Verified Date/Time: 09/04/2018 07:26:23 Reading Location: [facility] Radiology Reading Room Performing Organization Address City/State/Zipcode Phone Number GE RIS Urinalysis w/ Microscopic (09/04/2018 5:33 AM SHEET MANUFACTURING SUPERVISOR) Color, UA Light Yellow [facility] Clarity, UA Clear [facility] Specific [place], UA 1.007 1.001 - 1.035 [facility] pH, UA 7.5 5.0 - 8.0 [facility] Protein, UA Negative Negative [facility] Glucose, UA Negative Negative [facility] Ketones, UA Negative Negative [facility] Bilirubin, UA Negative Negative [facility] Blood, UA Negative Negative [facility] Nitrite, UA Negative Negative [facility] Leukocytes, UA Negative Negative [facility] Urobilinogen, UA 0.2 0.2 - 1.0 mg/dL [facility] RBC, UA <1 /HPF [facility] WBC, UA 0 /HPF [facility] Bacteria, UA Occasional [facility] Squam Epithel, UA 1 /HPF [facility] Specimen Source [facility] Specimen Urine Performing Organization Address City/State/Zipcode Phone Number [facility] [address] [place] [phone] C[place] Vitamin B12 and Folate (09/04/2018 5:16 AM SHEET MANUFACTURING SUPERVISOR) Vitamin B12 196 (L) 213 - 816 pg/mL [facility] Folate 13.9 >=7.0 ng/mL [facility] Specimen Blood Performing Organization Address City/State/Zipcode Phone Number [facility] [address] [place] [phone] CENTER TSH/Free T4 If Indicated (09/04/2018 5:16 AM SHEET MANUFACTURING SUPERVISOR) TSH 4.42 0.35 - 4.94 uIU/mL [facility] Specimen Blood Performing Organization Address City/State/Zipcode Phone Number [facility] [address] [place] [address] [phone] [place] HIV-1 Antigen with HIV-1/2 Antibody (09/04/2018 5:16 AM SHEET MANUFACTURING SUPERVISOR) HIV-1 Antigen with HIV 1&2 NON-REACTIVE Nonreactive [facility] Antibody [facility] Specimen Blood Performing Organization Address City/State/Zipcode Phone Number [address] [address] [place] Hepatitis C antibody (09/04/2018 5:16 AM SHEET MANUFACTURING SUPERVISOR) Hepatitis C Ab NON-REACTIVE Nonreactive [facility] Specimen Blood Performing Organization Address City/[facility]/Zipcode Phone Number [place] [phone] [place], [place] [phone] CENTER after 09/18/2017 Insurance Payer Benefit Plan / Group Subscriber ID Type Phone Address [facility] xxxxxxxx Maps Contracted Advance Directives For more information, please contact:[address] [phone] Code Status Date Activated Date Inactivated Comments Full Code 09/04/2018 4:39 AM This code status was determined by: Patient
[2018-09-19 08:35] LABS: Potassium 4.2 mmol/L (3.5-5.1)
[2018-09-19 08:38] LABS: Absolute Lymphocytes (CBC) 7.4 K/uL (0.7-4.9); Absolute Neutrophil 0.1 K/uL (1.8-8.0); Basophils % 0.1 % (0-1.3); Eosinophils % 0.2 % (0-4.4); Lymphocytes % 97.8 % (15.3-44.8); MCH 30.2 pg (27.0-35.0); MCV 85.6 fL (80-100); MPV 8.6 fL (7.6-11.3); Monocytes % 0.5 % (3.3-12.3); RBC Red Blood Cell Count 2.32 M/uL (3.86-4.86)
[2018-09-19 08:40] LABS: Hematocrit 19.9 % (36.0-45.0)
[2018-09-19] MEDS ORDERED: ONDANSETRON 4 MG/2 ML VIAL ONE (08:57)
--- NOTE | 2018-09-19 09:03 | RAD REPORT ---
EXAM DESCRIPTION: Jazmine Single View09/19/2018 8:37 am CLINICAL HISTORY: Shortness of breath COMPARISON: August 2018 FINDINGS: The lungs appear clear of acute infiltrate. The heart is normal size IMPRESSION: No acute abnormalities displayed
--- NOTE | 2018-09-19 09:26 | ER ---
Nurse's Notes [facility] Name: Lisy Betts Age: 68 yrs Sex: Female : 1950 Arrival Date: 09/19/2018 Time: 07:34 Bed 5 Private MD: Edith Miller Diagnosis: Anemia in other chronic diseases classified elsewhere;Thrombocytopenia, unspecified Presentation: 09/19 07:49 Presenting complaint: Patient states: Reports generalized weakness all over for a few jl7 days, has CLL and has had to have transfusions in the past. Palpitations started last night, reports this is a normal symptom when her hgb gets low. Transition of care: patient was not received from another setting of care. Onset of symptoms was September 19, 2018. Risk Assessment: Do you want to hurt yourself or someone else? Patient reports no desire to harm self or others. Initial Sepsis Screen: Does the patient meet any 2 criteria? No. Patient's initial sepsis screen is negative. Does the patient have a suspected source of infection? No. Patient's initial sepsis screen is negative. Care prior to arrival: None. 07:49 Method Of Arrival: Ambulatory [facility] 07:49 Acuity: ARNOLD 3 jl7 Triage Assessment: 08:19 General: Appears in no apparent distress. uncomfortable, Behavior is calm, cooperative, jl7 appropriate for age. Pain: Complains of pain in all over Pain does not radiate. Pain currently is 2 out of 10 on a pain scale. Quality of pain is described as aching. EENT: No signs and/or symptoms were reported regarding the EENT system. Neuro: Level of Consciousness is awake, alert, obeys commands, Oriented to person, place, time, situation. Cardiovascular: Heart tones S1 S2 present. Respiratory: Airway is patent Respiratory effort is even, unlabored, Respiratory pattern is regular, symmetrical. GI: No signs and/or symptoms were reported involving the gastrointestinal system. : No signs and/or symptoms were reported regarding the genitourinary system. Derm: Skin is pink, warm \T\ dry. Musculoskeletal: No signs and/or symptoms reported regarding the musculoskeletal system. 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 - Social history:: Smoking status: Patient/guardian denies using tobacco. - Ebola Screening: : No symptoms or risks identified at this time. - Family history:: not pertinent. - Hospitalizations: : No recent hospitalization is reported. Screenin:20 Abuse screen: Denies threats or abuse. Denies injuries from another. Nutritional jl7 screening: No deficits noted. Tuberculosis screening: No symptoms or risk factors identified. Fall Risk IV access (20 points). Total Rodríguez Fall Scale indicates No Risk (0-24 pts). Assessment: 08:20 General: See triage assessment. jl7 08:45 Reassessment: Pt c/o nausea, ERP notified, see MAR for orders. jl7 09:20 Reassessment: ERD at bedside discussing plan of care. jl7 09:53 Reassessment: Patient appears in no apparent distress at this time. Patient and/or jl7 family updated on plan of care and expected duration. Pain level reassessed. Patient is alert, oriented x 3, equal unlabored respirations, skin warm/dry/pink. Vital Signs: 07:53 BP 136 / 73; Pulse 73; Resp 14 S; Temp 98.2(O); Pulse Ox 98% on R/A; Weight 85.28 kg jl7 (R); Height 5 ft. 3 in. (160.02 cm) (R); Pain 2/10; 08:30 BP 123 / 71; Pulse 73; Resp 16 S; Pulse Ox 98% on R/A; jl7 09:00 BP 114 / 61; Pulse 67; Resp 16 S; Pulse Ox 97% on R/A; jl7 09:52 BP 114 / 77; Pulse 71; Resp 16 S; Pulse Ox 96% on R/A; jl7 11:00 BP 123 / 57; Pulse 70; Resp 16 S; Pulse Ox 99% on R/A; jl7 07:53 Body Mass Index 33.30 (85.28 kg, 160.02 cm) jl7 ED Course: 07:34 Patient arrived in ED. mr 07:35 Edith Miller is Private Physician. mr 07:38 Gareth Huynh MD is Attending Physician. rn 07:39 Alvin Gatica RN is Primary Nurse. jl7 07:51 Triage completed. jl7 07:53 Arm band placed on right wrist. jl7 08:10 Radiology exam delayed due to IV insertion attempt and/or patient not having kw appropriate IV at this time. 08:17 EKG done, by medical office technician. reviewed by Gareth Huynh MD. at1 08:19 Initial lab(s) drawn, by ia, sent to lab. T\T\S collected, blood band applied to patient. iw Inserted saline lock: 20 gauge in left antecubital area, using aseptic technique. Blood collected. 08:20 Patient has correct armband on for positive identification. Placed in gown. Bed in low jl7 position. Call light in reach. Side rails up X 1. Pulse ox on. NIBP on. Warm blanket given. 08:35 X-ray completed. Portable x-ray completed in exam room. Patient tolerated procedure kw well. 08:37 XRAY Chest (1 view) In Process Unspecified. EDMS 09:24 Tommy Martinez DO is Hospitalizing Provider. rn 12:01 No provider procedures requiring assistance completed. Patient admitted, IV remains in jl7 place. intact, No redness/swelling at site. Administered Medications: 08:50 Drug: Zofran 4 mg Route: IVP; Site: left antecubital; jl7 09:15 Follow up: Response: No adverse reaction; Nausea is decreased jl7 Outcome: 09:25 Decision to Hospitalize by Provider. rn 12:01 Admitted to Tele accompanied by tech, via wheelchair, room 402, with chart, Report jl7 called to HARLEY Baltazar 12:32 Patient left the ED. jl7 Signatures: Dispatcher [employer] EDOK RichardsonGissell Irene, HARLEY SOUZA iw Gareth Huynh MD MD rn Whitley, Kimberlee kw Gonzales, Amanda, antique jewelry repairer EKG Tat1 Alvin Gatica, RN RN jl7
--- NOTE | 2018-09-19 09:26 | EDPHYS ---
Physician Documentation [facility] Name: Lisy Betts Age: 68 yrs Sex: Female : 1950 Arrival Date: 09/19/2018 Time: 07:34 Bed 5 Private MD: Edith Miller ED Physician Gareth Huynh HPI: 09/19 08:07 This 68 yrs old Female presents to ER via Ambulatory with complaints of rn Palpitations, Anemia. 08:07 Reports CLL, has chronic anemia, requires transfusions, no other acute illness, reports rn fatigue. NO fever/cough/chest pain/abd pain.. Onset: The symptoms/episode began/occurred at an unknown time. Severity of symptoms: At their worst the symptoms were moderate in the emergency department the symptoms are unchanged. The patient has experienced similar episodes in the past. The patient has not recently seen a physician. 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 - Social history:: Smoking status: Patient/guardian denies using tobacco. - Ebola Screening: : No symptoms or risks identified at this time. - Family history:: not pertinent. - Hospitalizations: : No recent hospitalization is reported. ROS: 08:07 Constitutional: Negative for fever, chills, and weight loss, Eyes: Negative for injury, rn pain, redness, and discharge, Neck: Negative for injury, pain, and swelling, Cardiovascular: Negative for chest pain, and edema, Respiratory: Negative for cough, wheezing, and pleuritic chest pain, Abdomen/GI: Negative for abdominal pain, nausea, vomiting, diarrhea, and constipation, MS/Extremity: Negative for injury and deformity, Skin: Negative for injury, rash, and discoloration, Neuro: Negative for headache, numbness, tingling, and seizure. Exam: 08:07 Constitutional: This is a well developed, well nourished patient who is awake, alert, rn and in no acute distress. Head/Face: Normocephalic, atraumatic. ENT: MMM Cardiovascular: Regular rate and rhythm with a normal S1 and S2. No pulse deficits. Respiratory: Lungs have equal breath sounds bilaterally, clear to auscultation. No increased work of breathing, no retractions or nasal flaring. Abdomen/GI: soft, non-tender MS/ Extremity: Pulses equal, no cyanosis. Neurovascular intact. Full, normal range of motion. Equal circumference. Neuro: Awake and alert, GCS 15, oriented to person, place, time, and situation. Cranial nerves II-XII grossly intact. Motor strength 5/5 in all extremities. Sensory grossly intact. Vital Signs: 07:53 BP 136 / 73; Pulse 73; Resp 14 S; Temp 98.2(O); Pulse Ox 98% on R/A; Weight 85.28 kg jl7 (R); Height 5 ft. 3 in. (160.02 cm) (R); Pain 2/10; 08:30 BP 123 / 71; Pulse 73; Resp 16 S; Pulse Ox 98% on R/A; jl7 09:00 BP 114 / 61; Pulse 67; Resp 16 S; Pulse Ox 97% on R/A; jl7 09:52 BP 114 / 77; Pulse 71; Resp 16 S; Pulse Ox 96% on R/A; jl7 11:00 BP 123 / 57; Pulse 70; Resp 16 S; Pulse Ox 99% on R/A; jl7 07:53 Body Mass Index 33.30 (85.28 kg, 160.02 cm) jl7 MDM: 07:38 Patient medically screened. rn 08:21 ED course: Just here last week, given platelets but no blood. . rn 09:22 Differential Diagnosis anemia, thrombocytopenia. Data reviewed: vital signs, nurses rn notes, lab test result(s), and as a result, I will admit patient. Counseling: I had a detailed discussion with the patient and/or guardian regarding: the historical points, exam findings, and any diagnostic results supporting the discharge/admit diagnosis, lab results, the need for further work-up and treatment in the hospital. Admission orders: after a detailed discussion of the patient's condition and case, the admit orders are written by me. 09/19 07:46 Order name: Type And Screen rn 09/19 07:46 Order name: CBC with Diff; Complete Time: 10:15 rn 09/19 07:46 Order name: Basic Metabolic Panel; Complete Time: 08:39 rn 09/19 07:47 Order name: XRAY Chest (1 view); Complete Time: 09:07 rn 09/19 08:42 Order name: CBC Smear Scan; Complete Time: 10:15 EDMS 09/19 07:46 Order name: IV Start; Complete Time: 08:22 rn 09/19 07:46 Order name: EKG; Complete Time: 07:47 rn 09/19 07:46 Order name: EKG - Nurse/Tech; Complete Time: 08:22 rn 09/19 09:50 Order name: Diet Regular; Complete Time: 09:51 dh3 Administered Medications: 08:50 Drug: Zofran 4 mg Route: IVP; Site: left antecubital; jl7 09:15 Follow up: Response: No adverse reaction; Nausea is decreased jl7 Disposition: 09/19/18 09:25 Hospitalization ordered by Tommy Martinez for Observation. Preliminary diagnosis are Anemia in other chronic diseases classified elsewhere, Thrombocytopenia, unspecified. - Bed requested for Telemetry/MedSurg (observation). - Status is Observation. jl7 - Condition is Stable. - Problem is new. - Symptoms have improved. UTI on Admission? No Signatures: Dispatcher [employer] [facility] Milagro Moraes Roman, MD MD rn Joaquin, Henry RN Alvin Ennis RN RN jl7 Corrections: (The following items were deleted from the chart) 11:06 09:25 Hospitalization Ordered by Tommy Martinez DO for Observation. Preliminary bd diagnosis is Anemia in other chronic diseases classified elsewhere; Thrombocytopenia, unspecified. Bed requested for Telemetry/MedSurg (observation). Status is Observation. Condition is Stable. Problem is new. Symptoms have improved. UTI on Admission? No. rn 12:21 11:06 09/19/2018 09:25 Hospitalization Ordered by Tommy Martinez DO for Observation. bd Preliminary diagnosis is Anemia in other chronic diseases classified elsewhere; Thrombocytopenia, unspecified. Bed requested for Telemetry/MedSurg (observation). Status is Observation. Condition is Stable. Problem is new. Symptoms have improved. UTI on Admission? No. bd 12:32 12:21 09/19/2018 09:25 Hospitalization Ordered by Tommy Martinez DO for Observation. jl7 Preliminary diagnosis is Anemia in other chronic diseases classified elsewhere; Thrombocytopenia, unspecified. Bed requested for Telemetry/MedSurg (observation). Status is Observation. Condition is Stable. Problem is new. Symptoms have improved. UTI on Admission? No. bd
[2018-09-19 10:13] LABS: Blood Morphology Comment NOT SEEN (NOT SEEN); Platelet Estimate DECR; Urine White Blood Cell Casts OK
--- NOTE | 2018-09-19 10:26 | P.HP ---
Certification for Inpatient Patient admitted to: Observation With expected LOS: <2 Midnights Patient will require the following post-hospital care: None Practitioner: I am a practitioner with admitting privileges, knowledge of patient current condition, hospital course, and medical plan of care. Services: Services provided to patient in accordance with Admission requirements found in Title 42 Section 412.3 of the Code of Federal Regulations Patient History Date of Service: 09/19/18 Primary Care Provider: Onc/Hem-Dr. Paris([place], [place]) previous(Dr. Snider) Reason for admission: Fatigue, dizziness History of Present Illness: 68-year-old female presented to the emergency room with fatigue and dizziness. Patient with history of CLL. Last week she received platelet transfusion. Her platelet count was around 10. After transfusion platelet count improved. Today she reported increasing shortness of breath and fatigue. She came to the ER for further evaluation. Patient has required multiple transfusions of blood and platelets. She was seen by Hematology/Oncology in the local area. She was then transferred to a physician Dr. Paris at [place]. She last saw him several weeks ago. She is scheduled to see that doctor on Monday. In the ER vital signs stable. Hemoglobin 7.0. Previous 8.0. Platelet count of 12. Previously last week was at 79. Sodium 141, potassium 4.2, chest x-ray unremarkable. The patient was admitted for further evaluation. I was asked to evaluate the patient. When I saw the patient the ER, she appeared stable. I did discuss the case at length with her product safety officer/oncologist Dr. Paris. He recommended that the patient be transfused 2 units of packed red blood cells and 1 unit of platelets. He believed that the fatigue and dizziness was related to low hemoglobin. He recommends to transfuse in then discharge the patient tomorrow. Patient scheduled to see him on Monday. He did report that the patient would require a bone marrow biopsy as her CLL may be worsening or this may be an underlying additional problem. Allergies ceftriaxone [From Rocephin] Allergy (Verified 08/01/18 23:28) Hives Penicillins Allergy (Verified 08/01/18 23:28) Hives prednisone Adverse Reaction (Verified 08/01/18 23:28) Shortness of breath Home medications list reviewed: Yes Home Medications: traMADol HCL [Ultram*] 50 mg PO Q6H PRN 06/27/18 Docusate [Colace Cap*] 100 mg PO DAILY #30 cap 07/13/18 Pantoprazole [Protonix Tab*] 40 mg PO BIDAC #60 tab 07/13/18 Cholecalciferol (Vitamin D3) [Vitamin D 1000 Iu Tab*] 1 pill PO DAILY 08/29/18 Lactobacillus Acidophilus [Probiotic] 1 pill PO DAILY 08/29/18 Ondansetron HCl [Zofran] 4 mg PO Q6H PRN 08/29/18 Psyllium [Metamucil (Hydrocil)*] 1 pkt PO DAILY packet 09/03/18 - Past Medical/Surgical History Diabetic: No -: Chronic Lymphocytic Leukemia -: GERD -: Requirement of multiple transfusions for blood and platelets -: cyst removed from left breast -: left ankle surgery -: Hysterectomy 2018 -: Abdominal hernia repair with mesh placement Psychosocial/ Personal History: The patient lives by herself. She is a . She has 2 children. - Family History Mother -: Heart disease, Other (see notes) Notes: ALZ, MS Father -: Cancer Notes: Pancreatic CA - Social History Smoking Status: Never smoker Alcohol use: No CD- Drugs: No Caffeine use: Yes Place of Residence: Home Review of Systems General: Weakness, As per HPI Eyes: Unremarkable ENT: Unremarkable Respiratory: Unremarkable Cardiovascular: Light Headedness, As per HPI Gastrointestinal: Unremarkable Genitourinary: Unremarkable Musculoskeletal: Unremarkable Integumentary: Unremarkable Neurological: As per HPI Lymphatics: Unremarkable Physical Examination - Physical Exam General: Alert, In no apparent distress, Oriented x3, Cooperative HEENT: Atraumatic, Normocephalic, PERRLA, Mucous membr. moist/pink Neck: Supple, No Thyromegaly Respiratory: Clear to auscultation bilaterally, Normal air movement Cardiovascular: Normal pulses, Regular rate/rhythm Gastrointestinal: Normal bowel sounds, Soft and benign, Non-distended, No tenderness, No masses, No rebound, No guarding Musculoskeletal: No erythema, No tenderness, No warmth Integumentary: No tenderness/swelling, No erythema, No warmth, No cyanosis Neurological: Normal speech, Normal strength at 5/5 x4 extr, Normal tone, Normal affect - Studies Laboratory Data (last 24 hrs) 09/19/18 08:10: Sodium 141, Potassium 4.2, BUN 14, Creatinine 0.70, Glucose 101 09/19/18 08:10: WBC 7.6 D, Hgb 7.0 L*, Hct 19.9 L*, Plt Count 12 L* D Assessment and Plan - Plan Impression: CLL with noted acute on chronic anemia and thrombocytopenia GERD Possible thrush Plan: CLL with noted acute on chronic anemia and thrombocytopenia: I spoke to her product safety officer/oncologist at length. He recommended the patient to be transfused 2 units of packed red blood cells an 1 unit of platelet. He anticipated that the patient would improve Overnite. Plan for discharge tomorrow if lab improved. Patient has appointment on Monday to see him. Locomotive Electrician/ oncologist did note that the patient would require bone marrow biopsy to further evaluate her condition. This will have to be done at a higher level of center where he practices likely in [place]. Will reassess tomorrow. Will provide Benadryl prior to transfusion. Will continue with her other home medication. GERD: Will provide Pepcid. Possible thrush: Will provide nystatin and Magic mouthwash. Discharge Plan: Home Plan to discharge in: 24 Hours - Advance Directives Does patient have a Living Will: No Does patient have a Durable POA for Healthcare: No - Code Status/Comfort Care Code Status Assessed: Yes (Patient full code.) Time Spent Managing Pts Care (In Minutes): 55
--- NOTE | 2018-09-19 10:38 | EKG ---
Test Date: 2018-09-19 Test Time: 07:56:49 Dance Therapist: ALAINA MEASUREMENT RESULTS: Intervals: Rate: 74 TX: 148 QRSD: 76 QT: 390 QTc: 432 Dougherty: P: 2 TX: 148 QRS: 1 T: 34 INTERPRETIVE STATEMENTS: Normal sinus rhythm Inferior infarct, age undetermined Cannot rule out Anterior infarct, age undetermined Abnormal ECG Compared to ECG 08/29/2018 11:43:24 Myocardial infarct finding now present Electronically Signed On 09-19-18 10:37:10 INTERNET MARKETING MANAGER by Stevan Olivia
[2018-09-19] MEDS ORDERED: ONDANSETRON 4 MG/2 ML VIAL IV PRN (12:55)
[2018-09-19] MEDS: NYSTATIN 500,000 UNIT/5 ML UDC PO SCH ×3 (13:14→21:42)
[2018-09-19] MEDS: DIPHENHYDRAMINE 50 MG/ML VIAL IV PRN ×2 (15:26→21:41)
[2018-09-19 15:32] LABS: Urine Appearance CLEAR; Urine Bilirubin NEGATIVE (NEG); Urine Blood NEGATIVE (NEG); Urine Color YELLOW; Urine Glucose NEGATIVE (NEG); Urine Protein NEGATIVE (NEG); Urine Specific Gravity <=1.005 (1.005-1.030); Urine Urobilinogen 0.2 mg/dL (0.2-1.0)
[2018-09-19 15:39] LABS: Urine Microscopic Reflex NO UMIC
[2018-09-19 16:39] VITALS: BMI 33.3
[2018-09-19] MEDS ORDERED: FUROSEMIDE 20 MG/ 2ML VIAL IV ONE (17:24)
[2018-09-19] MEDS ORDERED: NA CHLORIDE 0.9% 100 ML IV ONE (19:54)
[2018-09-19] MEDS: ACETAMINOPHEN 500 MG TAB PO PRN (21:41)
[2018-09-19] MEDS: FAMOTIDINE 20 MG TAB PO SCH (21:42)
[2018-09-19] MEDS: MAGIC MOUTHWASH 180 ML BTL PO PRN (21:42)
[2018-09-20] MEDS ORDERED: FUROSEMIDE 20 MG/ 2ML VIAL IV ONE ×2 (00:39→03:47)
[2018-09-20] MEDS ORDERED: NA CHLORIDE 0.9% 100 ML IV ONE ×2 (01:08→10:45)
[2018-09-20 04:58] LABS: Hematocrit 26.3 % (36.0-45.0); MCH 30.1 pg (27.0-35.0); MCV 86.5 fL (80-100); MPV 8.4 fL (7.6-11.3); RBC Red Blood Cell Count 3.04 M/uL (3.86-4.86)
[2018-09-20 05:14] LABS: Magnesium 2.3 mg/dL (1.8-2.4); Potassium 3.7 mmol/L (3.5-5.1)
[2018-09-20 05:43] LABS: Blood Morphology Comment NOT SEEN (NOT SEEN); Platelet Estimate DECR; Smudge Cells 2
[2018-09-20] MEDS ORDERED: NA CHLORIDE 0.9% 250 ML IV SCH (06:00)
[2018-09-20] MEDS: NYSTATIN 500,000 UNIT/5 ML UDC PO SCH ×2 (08:12→13:56)
[2018-09-20] MEDS: MAGIC MOUTHWASH 180 ML BTL PO PRN (08:12)
[2018-09-20] MEDS: FAMOTIDINE 20 MG TAB PO SCH (08:12)
[2018-09-20] MEDS ORDERED: DOCUSATE NA 100 MG CAP PO PRN (08:43)
[2018-09-20] MEDS ORDERED: VITAMIN D 1000 UNIT TAB PO SCH (09:00)
[2018-09-20] MEDS ORDERED: DIPHENHYDRAMINE 50 MG/ML VIAL IV ONE (10:10)
--- NOTE | 2018-09-20 13:45 | P.DS ---
Admission Date: 09/19/18 Discharge Date: 09/20/18 Primary Care Provider: Onc/Hem-Dr. Paris([place], [place]) previous(Dr. Snider) Disposition: ROUTINE DISCHARGE Discharge Condition: GOOD Reason for Admission: Fatigue, dizziness Consultations: none Procedures: Medical problem list: CLL with noted acute on chronic anemia and thrombocytopenia GERD Possible thrush Brief History of Present Illness: 68-year-old female presented to the emergency room with fatigue and dizziness. Patient with history of CLL. Last week she received platelet transfusion. Her platelet count was around 10. After transfusion platelet count improved. Today she reported increasing shortness of breath and fatigue. She came to the ER for further evaluation. Patient has required multiple transfusions of blood and platelets. She was seen by Hematology/Oncology in the local area. She was then transferred to a physician Dr. Paris at [place]. She last saw him several weeks ago. She is scheduled to see that doctor on Monday. In the ER vital signs stable. Hemoglobin 7.0. Previous 8.0. Platelet count of 12. Previously last week was at 79. Sodium 141, potassium 4.2, chest x-ray unremarkable. The patient was admitted for further evaluation. I was asked to evaluate the patient. When I saw the patient the ER, she appeared stable. I did discuss the case at length with her airport maintenance laborer/oncologist Dr. Paris. He recommended that the patient be transfused 2 units of packed red blood cells and 1 unit of platelets. He believed that the fatigue and dizziness was related to low hemoglobin. He recommends to transfuse in then discharge the patient tomorrow. Patient scheduled to see him on Monday. He did report that the patient would require a bone marrow biopsy as her CLL may be worsening or this may be an underlying additional problem. Hospital Course: Patient presented with fatigue. Patient with CLL. Patient found to have acute on chronic anemia with thrombocytopenia. Case discussed at length with her airport maintenance laborer/oncologist-Dr Paris. He recommended the patient to be admitted for transfusion of packed red blood cells and platelets. Patient received 2 units of packed red blood cells along with transfusion of platelets. This was done with improvement. Patient has an appointment to see Dr. Paris tomorrow. Dr. Paris will further evaluate her current condition. He recommends that the patient will require bone marrow biopsy soon to evaluate her condition since she requires numerous transfusions. Bone marrow biopsy will need to be done at a high level center where he practices likely [facility] or [facility]. Patient understands that follow up with him is critical. At discharge patient will continue with her current medication. Patient with GERD. She will continue with Protonix 40 mg daily Patient with possible thrush. Patient will be provided nystatin 100 mg daily for 7 days. Vital Signs/Physical Exam: Temp Pulse Resp BP Pulse Ox 99.1 F 62 18 128/76 96 09/20/18 12:00 09/20/18 12:00 09/20/18 12:00 09/20/18 12:00 09/20/18 12:00 General: Alert, In no apparent distress, Oriented x3 HEENT: Atraumatic, Mucous membr. moist/pink Neck: Supple Respiratory: Clear to auscultation bilaterally, Normal air movement Cardiovascular: Normal pulses, Regular rate/rhythm Gastrointestinal: Normal bowel sounds, Soft and benign, Non-distended, No tenderness, No masses, No rebound, No guarding Musculoskeletal: No erythema, No tenderness, No warmth Integumentary: No tenderness/swelling, No erythema, No warmth, No cyanosis Neurological: Normal speech, Normal strength at 5/5 x4 extr, Normal tone, Normal affect Laboratory Data at Discharge: WBC 8.4 K/uL (4.3-10.9) 09/20/18 04:41 Hgb 9.2 g/dL (12.0-15.0) L 09/20/18 04:41 Hct 26.3 % (36.0-45.0) L D 09/20/18 04:41 Plt Count 10 K/uL (152-406) L* 09/20/18 04:41 Sodium 141 mmol/L (136-145) 09/20/18 04:41 Potassium 3.7 mmol/L (3.5-5.1) 09/20/18 04:41 BUN 15 mg/dL (7-18) 09/20/18 04:41 Creatinine 0.80 mg/dL (0.55-1.3) 09/20/18 04:41 Glucose 101 mg/dL (74-106) 09/20/18 04:41 Magnesium 2.3 mg/dL (1.8-2.4) 09/20/18 04:41 Home Medications: traMADol HCL [Ultram*] 50 mg PO Q6H PRN 06/27/18 Pantoprazole [Protonix Tab*] 40 mg PO BIDAC #60 tab 07/13/18 Cholecalciferol (Vitamin D3) [Vitamin D 1000 Iu Tab*] 1,000 pill PO DAILY Lactobacillus Acidophilus [Probiotic] 1 pill PO DAILY 08/29/18 Ondansetron HCl [Zofran] 4 mg PO Q6H PRN 08/29/18 Docusate [Colace Cap*] 100 mg PO BEDTIME 09/19/18 Multivitamin [Multiple Vitamins] 1 each PO DAILY 09/19/18 Psyllium [Metamucil (Hydrocil)*] 1 pkt PO DAILY PRN 09/19/18 Fluconazole [Diflucan] 100 mg PO DAILY #7 tablet 09/20/18 New Medications: Fluconazole [Diflucan] 100 mg PO DAILY #7 tablet Patient Discharge Instructions: 1. Follow up with Hematology/Oncology tomorrow. 2. Patient presented with fatigue. Patient with CLL. Patient found to have acute on chronic anemia with thrombocytopenia. Case discussed at length with her airport maintenance laborer/oncologist-Dr Paris. He recommended the patient to be admitted for transfusion of packed red blood cells and platelets. Patient received 2 units of packed red blood cells along with transfusion of platelets. This was done with improvement. Patient has an appointment to see Dr. Paris tomorrow. Dr. Paris will further evaluate her current condition. He recommends that the patient will require bone marrow biopsy soon to evaluate her condition since she requires numerous transfusions. Bone marrow biopsy will need to be done at a high level center where he practices likely [facility] or [facility]. Patient understands that follow up with him is critical. At discharge patient will continue with her current medication. 3. Patient with GERD. She will continue with Protonix 40 mg daily. 4. Patient with possible thrush. Patient will be provided nystatin 100 mg daily for 7 days. Diet: AHA Activity: Ad jamaal Time spent managing pt's care (in minutes): 55
[2018-09-20 15:00] LABS: MPV 8.5 fL (7.6-11.3)
[2018-09-20 15:34] LABS: Platelet Estimate DECR
[2018-09-20] MEDS: ACETAMINOPHEN 500 MG TAB PO PRN (16:56)
[2018-09-20 17:07] VITALS: O2SAT 96
[2018-09-20 17:22] VITALS: BP 138/88; TEMP 99.8
== END 2018-09-20 17:32 | disposition home or self-care (01) ==
LOC: ER 07:30 → ERHOLD 10:17 → 4TH 11:56
PROVIDERS: ADMIT Family Medicine; ATTEND Family Medicine
PROC: 30233N1 Transfusion of Nonautologous Red Blood Cells into Peripheral Vein, Percutaneous Approach (ICD-10-PCS; 2018-09-19)
PROC: 30233R1 Transfusion of Nonautologous Platelets into Peripheral Vein, Percutaneous Approach (ICD-10-PCS; principal; 2018-09-20)
DX: D64.9 Anemia, unspecified (principal); D69.6 Thrombocytopenia, unspecified; C91.10 Chronic lymphocytic leukemia of B-cell type not having achieved remission; K21.9 Gastro-esophageal reflux disease without esophagitis; Z88.0 Allergy status to penicillin
CPT/HCPCS: 36415; 36430 ×2; 71045; 80048 ×2; 81003; 83735; 85025 ×2; 85049; 86850; 86900; 86901; 93005; 96374; 99285; J1940 ×3; J2405 ×2; P9016 ×2; P9035 ×2